=== PATIENT | female | born 1965 | race Caucasian/White ===

== ENCOUNTER 2017-05-13 11:05 | Emergency (ER) | payer OTHER ==
--- NOTE | 2017-05-13 11:33 | ERPHSYRPT ---
- History of Present Illness Time Seen by Provider: 05/13/17 11:26 Source: patient Exam Limitations: no limitations Physician History: The patient is an obese 52-year-old female complains of 2 red and tender areas on the skin of her abdomen that began a week ago. 5 days ago she saw her primary care doctor who prescribed Keflex. The infection on her skin hasn't gotten any better. She has had other skin infections of a similar nature in the past that had to be lanced and drained. She denies fever or chills. Her past medical history is significant for abscesses, hypertension, high cholesterol, diabetes, and peripheral neuropathy. Timing/Duration: week(s) (1) Quality: painful Severity: mild Location: torso Possible Causes: no cause identified Modifying Factors: Improves With: other (keflex) Associated Symptoms: rash Allergies/Adverse Reactions: adhesive tape Adverse Reaction (Intermediate, Verified 10/06/13 22:09) Home Medications: Gabapentin 300 mg [Neurontin 300 mg] 600 mg PO BID 08/25/12 [History] Insulin Glargine [Lantus Insulin] 40 units SQ BID 08/25/12 [History] Lisinopril 20 mg [Zestril 20 MG] 40 mg PO HS 08/25/12 [History] Simethicone [Gas-X] 2 tab PO BID 08/25/12 [History] Insulin Lispro [Humalog] 0 unit SQ ACHS PRN 02/24/13 [History] Cyanocobalamin (Vitamin B-12) [Vitamin B-12] 1,000 mcg PO DAILY 10/06/13 [ History] Furosemide [Lasix] 40 mg PO DAILY 10/06/13 [History] Oxycodone HCl/Acetaminophen [Percocet 7.5-325 mg Tablet] 1 each PO QID PRN 10/06 [History] Promethazine HCl 25 mg [Phenergan 25 mg] 25 mg PO Q6H PRN 10/06/13 [ History] Pyridoxine HCl 100 mg [Vitamin B-6 (Pyridoxine) 100 MG] 100 mcg PO BID 01/12 [History] Rivaroxaban 10 mg Tablet [Xarelto 10 mg Tablet] 20 mg PO DAILY 10/08/13 [ History] Hx Tetanus, Diphtheria Vaccination/Date Given: No (unsure) Hx Influenza Vaccination/Date Given: Yes (2013) Hx Pneumococcal Vaccination/Date Given: Yes (w/in 5 years) - Review of Systems Constitutional: No Fever, No Chills Eyes: No Symptoms Ears, Nose, & Throat: No Symptoms Respiratory: No Cough, No Dyspnea Cardiac: No Chest Pain, No Edema, No Syncope Abdominal/Gastrointestinal: No Abdominal Pain, No Nausea, No Vomiting, No Diarrhea Genitourinary Symptoms: No Dysuria Musculoskeletal: No Back Pain, No Neck Pain Skin: Rash, Skin Lesions Neurological: No Dizziness, No Focal Weakness, No Sensory Changes Psychological: No Symptoms Endocrine: No Symptoms Hematologic/Lymphatic: No Symptoms Immunological/Allergic: No Symptoms All Other Systems: Reviewed and Negative - Past Medical History Pertinent Past Medical History: Yes Neurological History: Other ENT History: No Pertinent History Cardiac History: Deep Vein Thrombosis Respiratory History: No Pertinent History Endocrine Medical History: Diabetes Type II Musculoskeletal History: Other GI Medical History: Pancreatitis, Other History: No Pertinent History Psycho-Social History: Depression Female Reproductive Disorders: No Pertinent History Other Medical History: slow digestive system, neuropathy - Past Surgical History Past Surgical History: Yes Neuro Surgical History: No Pertinent History Cardiac: No Pertinent History Respiratory: No Pertinent History Gastrointestinal: Other Genitourinary: No Pertinent History Musculoskeletal: No Pertinent History Female Surgical History: Tubal Ligation, Other Other Surgical History: d & c, (rectal surgery x3, cyst removed from rectum). cyst removed from pancreas - Social History Smoking Status: Never smoker Exposure to second hand smoke: No Drug Use: none Patient Lives Alone: No - Physical Exam General Appearance: no apparent distress, alert Eye Exam: PERRL/EOMI, eyes nml inspection Ears, Nose, Throat Exam: normal ENT inspection, pharynx normal, moist mucous membranes Neck Exam: normal inspection, non-tender, supple, full range of motion Respiratory Exam: normal breath sounds, lungs clear, No respiratory distress Cardiovascular Exam: regular rate/rhythm, normal heart sounds Gastrointestinal/Abdomen Exam: soft, mass, No tenderness Pelvic Exam: not done Rectal Exam: not done Back Exam: normal inspection, normal range of motion, No CVA tenderness, No vertebral tenderness Extremity Exam: normal inspection, normal range of motion Neurologic Exam: alert, oriented x 3, cooperative, normal mood/affect, sensation nml, No motor deficits Skin Exam: rash (There are 2 areas on the right side of her abdomen that are tender to palpation, reddish about the size of a quarter, and indurated. They are not fluctuant.) SpO2 Interpretation: normal - Progress Progress: unchanged Counseled pt/family regarding: diagnosis - Departure Time of Disposition: 11:38 Departure Disposition: Home Clinical Impression: Abscess, Cellulitis Condition: Stable Critical Care Time: No Referrals: FELIPE LOPEZ [Primary Care Provider] - Additional Instructions: The 2 areas on your skin of your abdomen are infected. Please discontinue the Keflex that you have been taking. Start taking clindamycin 300 mg 4 times a day for 10 days. Today the areas could not be drained. Follow-up with your primary care doctor in 2 days for a reevaluation. Prescriptions: Clindamycin HCl 1 cap PO QID #40 capsule
[2017-05-13 12:03] VITALS: BP 149/87; PULSE 88; O2SAT 97
== END 2017-05-13 12:00 | disposition home or self-care (01) ==
LOC: ED 11:05
DX: L02.211 Cutaneous abscess of abdominal wall (principal); L03.311 Cellulitis of abdominal wall; I10 Essential (primary) hypertension; E78.00 Pure hypercholesterolemia, unspecified; E11.9 Type 2 diabetes mellitus without complications; G62.9 Polyneuropathy, unspecified; Z79.899 Other long term (current) drug therapy
CPT/HCPCS: 99281; 99283

== ENCOUNTER 2017-07-31 06:04 | Inpatient (IN) | payer OTHER ==
[2017-07-31] MEDS ORDERED: Sodium Chloride 0.9% 1000 ML 1,000 ML ONE ×3 (06:15→07:36)
[2017-07-31] MEDS ORDERED: Sodium Chloride 0.9% 1000 ML 1,000 ML IV STA ×4 (06:28→09:07)
[2017-07-31] MEDS ORDERED: Zofran 4 MG/2 ML VIAL IV ONE (06:35)
--- NOTE | 2017-07-31 06:35 | ERPHSYRPT ---
- History of Present Illness Time Seen by Provider: 07/31/17 06:20 Source: patient Exam Limitations: no limitations Patient Subjective Stated Complaint: blood sugars have been running high for past 3 days, vomiting Triage Nursing Assessment: Pt A&O X3, extremely lethargic, bp 61/34, eyes sluggish, bilateral dorsalis pedal pulses weak, blood glucose 328 in ambulance, covered in vomit on arrival from EMS Physician History: 52 y/o female with history of DM brought in by ambulance for nausea, vomiting and altered mental status. Pt has been vomiting for the last 2 days. Pt arrived in vomitus and had a FS of 328. Repeat FS after a 1/4 of fluids was 262. Pt arrives very lethargic but is alert and oriented. Pt has a BP of 68/40. Pt has been having elevated blood sugars over the past 3 days. Pt has been compliant on her insulin. Of note, yesterday, patient noted to have right sided weakness that has resolved since then. Pt also reports that over the past month she has been using a new opioid SL medication given twice daily. Timing/Duration: yesterday Severity: moderate Associated Symptoms: nausea, vomiting Allergies/Adverse Reactions: adhesive tape Adverse Reaction (Intermediate, Verified 10/06/13 22:09) Home Medications: Lisinopril 20 mg [Zestril 20 MG] 40 mg PO HS 08/25/12 [History] Furosemide [Lasix] 40 mg PO DAILY 10/06/13 [History] Atorvastatin Calcium [Lipitor 20MG Tablet] 20 mg PO DAILY 06/11/17 [History] Gabapentin [Neurontin] 800 mg PO TID 06/11/17 [History] Insulin Glargine,Hum.rec.anlog [Basaglar Kwikpen U-100] 80 unit SQ DAILY [History] Insulin Glulisine [Apidra Solostar] 40 unit SQ BID 06/11/17 [History] Potassium Chloride 10 Meq Tab* [Klor Con 10 MEQ] 10 meq PO BID 06/11/17 [ History] Hx Tetanus, Diphtheria Vaccination/Date Given: No (unsure) Hx Influenza Vaccination/Date Given: Yes (2012) Hx Pneumococcal Vaccination/Date Given: Yes (w/in 5 years) - Review of Systems Constitutional: Lethargy, Weakness, No Fever, No Chills Eyes: No Symptoms Ears, Nose, & Throat: No Symptoms Respiratory: No Cough, No Dyspnea Cardiac: No Chest Pain, No Edema, No Syncope Abdominal/Gastrointestinal: No Abdominal Pain, No Nausea, No Vomiting, No Diarrhea Genitourinary Symptoms: No Dysuria, No Frequency, No Hematuria Musculoskeletal: No Back Pain, No Neck Pain, No Myalgias Skin: No Rash Neurological: No Dizziness, No Focal Weakness, No Sensory Changes Psychological: No Symptoms Endocrine: No Symptoms All Other Systems: Reviewed and Negative - Past Medical History Pertinent Past Medical History: Yes Neurological History: Other ENT History: No Pertinent History Cardiac History: Deep Vein Thrombosis Respiratory History: No Pertinent History Endocrine Medical History: Diabetes Type II Musculoskeletal History: Other GI Medical History: Pancreatitis, Other History: No Pertinent History Psycho-Social History: Depression Female Reproductive Disorders: No Pertinent History Other Medical History: slow digestive system, neuropathy - Past Surgical History Past Surgical History: Yes Neuro Surgical History: No Pertinent History Cardiac: No Pertinent History Respiratory: No Pertinent History Gastrointestinal: Other Genitourinary: No Pertinent History Musculoskeletal: No Pertinent History Female Surgical History: Tubal Ligation, Other Other Surgical History: d & c, (rectal surgery x3, cyst removed from rectum). cyst removed from pancreas - Social History Smoking Status: Never smoker Exposure to second hand smoke: No Drug Use: none Patient Lives Alone: No - Nursing Vital Signs Nursing Vital Signs: Initial Vital Signs Temperature 97.8 F 07/31/17 06:09 Pulse Rate 78 07/31/17 06:09 Respiratory Rate 13 07/31/17 06:09 Blood Pressure 61/34 07/31/17 06:09 - Physical Exam General Appearance: alert, lethargy, obese Eye Exam: PERRL/EOMI, eyes nml inspection Ears, Nose, Throat Exam: normal ENT inspection, TMs normal, pharynx normal, moist mucous membranes Neck Exam: normal inspection, non-tender, supple, full range of motion Respiratory Exam: normal breath sounds, lungs clear, No chest tenderness, No respiratory distress Cardiovascular Exam: regular rate/rhythm, normal heart sounds, normal peripheral pulses Gastrointestinal/Abdomen Exam: soft, normal bowel sounds, No tenderness, No mass Back Exam: normal inspection, normal range of motion, No CVA tenderness, No vertebral tenderness Extremity Exam: normal inspection, normal range of motion, pelvis stable Neurologic Exam: alert, oriented x 3, cooperative, normal mood/affect, nml cerebellar function, nml station & gait, sensation nml, No motor deficits Skin Exam: normal color, warm, dry, No rash Lymphatic Exam: No adenopathy - Course Nursing assessment & vital signs reviewed: Yes EKG Interpreted by Me: RATE (HR 85), Other (low voltage) Ordered Tests: Active Orders 24 hr Category Date Time Status Distance Education Teacher STAT Care 07/31/17 06:27 Active IV Insertion STAT Care 07/31/17 06:26 Active CHEST 1 VIEW (PORTABLE) Stat Exams 07/31/17 06:27 Taken HEAD WITHOUT CONTRAST [CT] Stat Exams 07/31/17 06:29 Taken BLOOD CULTURE Stat Lab 07/31/17 06:36 Ordered BNP [NT PRO BNP] Stat Lab 07/31/17 06:49 Completed CBC W DIFF Stat Lab 07/31/17 06:36 Completed CMP Stat Lab 07/31/17 06:36 Completed CULTURE,URINE Stat Lab 07/31/17 06:36 Received ETHYL ALCOHOL Stat Lab 07/31/17 06:36 Completed Lactic Acid Stat Lab 07/31/17 06:27 Results PROTIME WITH INR Stat Lab 07/31/17 06:36 Completed PTT Stat Lab 07/31/17 06:36 Completed UA Stat Lab 07/31/17 06:36 Completed Urine Triage Profile Stat Lab 07/31/17 06:36 Completed VENOUS BLOOD GAS Stat Lab 07/31/17 06:26 Completed Medication Summary Generic Name Dose Route Start Last Admin Trade Name Freq PRN Reason Stop Dose Admin Vancomycin HCl 1 gm in 250 mls @ 167 mls/hr 07/31/17 06:38 Vancomycin 1gm/ Ns 250ml IV 07/31/17 08:07 STAT ONE Potassium Chloride 20 meq in 100 mls @ 50 mls/hr 07/31/17 07:12 07/31/17 07: 37 Potassium Chloride 20 Meq In Water 100ml IV 07/31/17 09:11 50 mls/hr STAT ONE Administration Sodium Chloride 1,000 mls @ 999 mls/hr 07/31/17 07:35 07/31/17 07:38 Sodium Chloride 0.9% 1000 Ml IV 07/31/17 08:35 999 mls/hr .Q1H1M STA Administration Discontinued Medications Generic Name Dose Route Start Last Admin Trade Name Freq PRN Reason Stop Dose Admin Sodium Chloride Confirm 07/31/17 06:15 Sodium Chloride 0.9% 1000 Ml Administered 07/31/17 06:16 Dose 1,000 mls @ ud .ROUTE .STK-MED ONE Sodium Chloride 1,000 mls @ 999 mls/hr 07/31/17 06:28 07/31/17 06:15 Sodium Chloride 0.9% 1000 Ml IV 07/31/17 07:28 999 mls/hr .Q1H1M STA Administration Sodium Chloride 1,000 mls @ 999 mls/hr 07/31/17 06:35 07/31/17 06:50 Sodium Chloride 0.9% 1000 Ml IV 07/31/17 07:35 999 mls/hr .Q1H1M STA Administration Piperacillin Sod/Tazobactam Sod 3.375 gm in 100 mls @ 200 mls/hr 07/31/17 06: 38 07/31/17 07:29 Zosyn 3.375gm/100 Ml D5w IV 07/31/17 07:07 200 mls/hr STAT STA Administration Sodium Chloride Confirm 07/31/17 06:38 Sodium Chloride 0.9% 1000 Ml Administered 07/31/17 06:39 Dose 1,000 mls @ ud .ROUTE .STK-MED ONE Sodium Chloride Confirm 07/31/17 06:49 Sodium Chloride 0.9% 1000 Ml Administered 07/31/17 06:50 Dose 1,000 mls @ ud .ROUTE .STK-MED ONE Piperacillin Sod/Tazobactam Sod Confirm 07/31/17 06:49 Zosyn 3.375gm/100 Ml D5w Administered 07/31/17 06:50 Dose 3.375 gm in 100 mls @ ud IV .STK-MED ONE Sodium Chloride Confirm 07/31/17 07:36 Sodium Chloride 0.9% 1000 Ml Administered 07/31/17 07:37 Dose 1,000 mls @ ud .ROUTE .STK-MED ONE Potassium Chloride Confirm 07/31/17 07:36 Potassium Chloride 20 Meq In Water 100ml Administered 07/31/17 07:37 Dose 100 mls @ ud IV .STK-MED ONE Naloxone HCl 2 mg 07/31/17 06:41 07/31/17 06:43 Narcan 2 Mg/2 Ml IV 07/31/17 06:42 2 mg STAT ONE Administration Naloxone HCl Confirm 07/31/17 06:43 Narcan 2 Mg/2 Ml Administered 07/31/17 06:44 Dose 2 mg .ROUTE .STK-MED ONE Ondansetron HCl 4 mg 07/31/17 06:35 07/31/17 06:40 Zofran 4 Mg/2 Ml Vial IV 07/31/17 06:36 4 mg STAT ONE Administration Ondansetron HCl Confirm 07/31/17 06:38 Zofran 4 Mg/2 Ml Vial Administered 07/31/17 06:39 Dose 4 mg .ROUTE .[facility] ONE Lab/Rad Data: Laboratory Result Diagrams 07/31/17 06:36 07/31/17 06:36 Laboratory Results 07/31/17 07/31/17 07/31/17 Range/Units 06:49 06:36 06:36 WBC (4.0-10.5) K/mm3 RBC (4.1-5.4) M/mm3 Hgb (12.0-16.0) gm/dl Hct (35-47) % MCV (78-100) fl MCH (26-32) pg MCHC (32-36) g/dl RDW (11.5-14.0) % Plt Count (150-450) K/mm3 MPV (6-9.5) fl Gran % (36.0-66.0) % Lymphocytes % (24.0-44.0) % Monocytes % (0.0-12.0) % Eosinophils % (0.00-5.0) % Basophils % (0.0-0.4) % Basophils # (0-0.4) INR (0.8-3.0) APTT (25.3-37.0) SECONDS VBG pH (7.32-7.42) VBG pCO2 at Pat Temp (42-55) mm/Hg VBG pO2 at Pat Temp (25-40) mm/Hg VBG HCO3 (22-28) meq/L VBG O2 Sat (Gabriel) (95-100) VBG Base Excess (-2.0-2.0) VBG Hemoglobin VBG Carboxyhemoglobin (0.0-6.9) % T HGB POC Potassium (3.5-5.1) Sodium (136-145) mEq/L Potassium (3.5-5.1) mEq/L Chloride (98-107) mEq/L Carbon Dioxide (21-32) mEq/L Anion Gap (5-15) MEQ/L BUN (9-20) mg/dL Creatinine (0.55-1.30) mg/dl Estimated GFR ML/MIN Glucose (70-110) MG/DL Lactic Acid (0.4-2.0) Calcium (8.5-10.1) mg/dL Total Bilirubin (0.2-1.0) mg/dL AST (15-37) U/L ALT (12-78) U/L Alkaline Phosphatase (46-116) U/L NT-Pro-B Natriuret Pep 77 (0-125) pg/ml Serum Total Protein (6.4-8.2) gm/dL Albumin (3.4-5.0) g/dL Ur Collection Type CLEAN CATCH Urine Color YELLOW (YELLOW) Urine Appearance HAZY (CLEAR) Urine pH 5.0 (5-6) Ur Specific [place] 1.005 (1.005-1.025) Urine Protein NEGATIVE (Negative) Urine Ketones NEGATIVE (NEGATIVE) Urine Blood NEGATIVE (0-5) Harvey/ul Urine Nitrite NEGATIVE (NEGATIVE) Urine Bilirubin NEGATIVE (NEGATIVE) Urine Urobilinogen NORMAL (0-1) mg/dL Ur Leukocyte Esterase NEGATIVE (NEGATIVE) Urine Glucose 1000 (NEGATIVE) mg/dL Urine Opiates Level NEG. (NEGATIVE) Ur Methadone NEG. (NEGATIVE) Urine Barbiturates NEG. (NEGATIVE) Ur Phencyclidine (PCP) NEG. (NEGATIVE) Urine Amphetamine NEG. (NEGATIVE) U Benzodiazepine Level NEG. (NEGATIVE) Urine Cocaine NEG. (NEGATIVE) Urine Marijuana (THC) NEG. (NEGATIVE) Ethyl Alcohol (0.00-0.01) % Specimen Received 07/31/17 0645 07/31/17 07/31/17 07/31/17 Range/Units 06:36 06:36 06:36 WBC (4.0-10.5) K/mm3 RBC (4.1-5.4) M/mm3 Hgb (12.0-16.0) gm/dl Hct (35-47) % MCV (78-100) fl MCH (26-32) pg MCHC (32-36) g/dl RDW (11.5-14.0) % Plt Count (150-450) K/mm3 MPV (6-9.5) fl Gran % (36.0-66.0) % Lymphocytes % (24.0-44.0) % Monocytes % (0.0-12.0) % Eosinophils % (0.00-5.0) % Basophils % (0.0-0.4) % Basophils # (0-0.4) INR 1.14 (0.8-3.0) APTT 28.4 (25.3-37.0) SECONDS VBG pH (7.32-7.42) VBG pCO2 at Pat Temp (42-55) mm/Hg VBG pO2 at Pat Temp (25-40) mm/Hg VBG HCO3 (22-28) meq/L VBG O2 Sat (Gabriel) (95-100) VBG Base Excess (-2.0-2.0) VBG Hemoglobin VBG Carboxyhemoglobin (0.0-6.9) % T HGB POC Potassium (3.5-5.1) Sodium 139 (136-145) mEq/L Potassium 2.8 L* (3.5-5.1) mEq/L Chloride 96 L (98-107) mEq/L Carbon Dioxide 30.5 (21-32) mEq/L Anion Gap 14.9 (5-15) MEQ/L BUN 30 H (9-20) mg/dL Creatinine 2.38 H (0.55-1.30) mg/dl Estimated GFR 23 ML/MIN Glucose 250 H (70-110) MG/DL Lactic Acid (0.4-2.0) Calcium 9.6 (8.5-10.1) mg/dL Total Bilirubin 0.50 (0.2-1.0) mg/dL AST 30 (15-37) U/L ALT 26 (12-78) U/L Alkaline Phosphatase 114 (46-116) U/L NT-Pro-B Natriuret Pep (0-125) pg/ml Serum Total Protein 8.0 (6.4-8.2) gm/dL Albumin 3.3 L (3.4-5.0) g/dL Ur Collection Type Urine Color (YELLOW) Urine Appearance (CLEAR) Urine pH (5-6) Ur Specific [place] (1.005-1.025) Urine Protein (Negative) Urine Ketones (NEGATIVE) Urine Blood (0-5) Harvey/ul Urine Nitrite (NEGATIVE) Urine Bilirubin (NEGATIVE) Urine Urobilinogen (0-1) mg/dL Ur Leukocyte Esterase (NEGATIVE) Urine Glucose (NEGATIVE) mg/dL Urine Opiates Level (NEGATIVE) Ur Methadone (NEGATIVE) Urine Barbiturates (NEGATIVE) Ur Phencyclidine (PCP) (NEGATIVE) Urine Amphetamine (NEGATIVE) U Benzodiazepine Level (NEGATIVE) Urine Cocaine (NEGATIVE) Urine Marijuana (THC) (NEGATIVE) Ethyl Alcohol < 0.010 (0.00-0.01) % Specimen Received 07/31/17 07/31/17 07/31/17 Range/Units 06:36 06:27 06:26 WBC 10.3 (4.0-10.5) K/mm3 RBC 5.24 (4.1-5.4) M/mm3 Hgb 15.0 (12.0-16.0) gm/dl Hct 45.0 (35-47) % MCV 85.9 (78-100) fl MCH 28.6 (26-32) pg MCHC 33.3 (32-36) g/dl RDW 14.8 H (11.5-14.0) % Plt Count 176 (150-450) K/mm3 MPV 12.3 H (6-9.5) fl Gran % 43.7 (36.0-66.0) % Lymphocytes % 39.5 (24.0-44.0) % Monocytes % 13.7 H (0.0-12.0) % Eosinophils % 2.3 (0.00-5.0) % Basophils % 0.8 (0.0-0.4) % Basophils # 0.08 (0-0.4) INR (0.8-3.0) APTT (25.3-37.0) SECONDS VBG pH 7.34 (7.32-7.42) VBG pCO2 at Pat Temp 60 H (42-55) mm/Hg VBG pO2 at Pat Temp 23 L (25-40) mm/Hg VBG HCO3 32.4 H* (22-28) meq/L VBG O2 Sat (Gabriel) 41.6 L (95-100) VBG Base Excess 4.5 H (-2.0-2.0) VBG Hemoglobin 15.6 VBG Carboxyhemoglobin 1.6 (0.0-6.9) % T HGB POC Potassium 3.1 L (3.5-5.1) Sodium (136-145) mEq/L Potassium (3.5-5.1) mEq/L Chloride (98-107) mEq/L Carbon Dioxide (21-32) mEq/L Anion Gap (5-15) MEQ/L BUN (9-20) mg/dL Creatinine (0.55-1.30) mg/dl Estimated GFR ML/MIN Glucose (70-110) MG/DL Lactic Acid 4.3 H (0.4-2.0) Calcium (8.5-10.1) mg/dL Total Bilirubin (0.2-1.0) mg/dL AST (15-37) U/L ALT (12-78) U/L Alkaline Phosphatase (46-116) U/L NT-Pro-B Natriuret Pep (0-125) pg/ml Serum Total Protein (6.4-8.2) gm/dL Albumin (3.4-5.0) g/dL Ur Collection Type Urine Color (YELLOW) Urine Appearance (CLEAR) Urine pH (5-6) Ur Specific [place] (1.005-1.025) Urine Protein (Negative) Urine Ketones (NEGATIVE) Urine Blood (0-5) Harvey/ul Urine Nitrite (NEGATIVE) Urine Bilirubin (NEGATIVE) Urine Urobilinogen (0-1) mg/dL Ur Leukocyte Esterase (NEGATIVE) Urine Glucose (NEGATIVE) mg/dL Urine Opiates Level (NEGATIVE) Ur Methadone (NEGATIVE) Urine Barbiturates (NEGATIVE) Ur Phencyclidine (PCP) (NEGATIVE) Urine Amphetamine (NEGATIVE) U Benzodiazepine Level (NEGATIVE) Urine Cocaine (NEGATIVE) Urine Marijuana (THC) (NEGATIVE) Ethyl Alcohol (0.00-0.01) % Specimen Received - Progress Progress: unchanged Progress Note: 07/31/17 07:46 The patient has continued to have low BP with the last reading being 77/40 after receiving 2 liters of NS fluids. Pt is currently on her 3rd liter. Pt has a K of 2.6, lactic acid of over 4 and a creatinine of 2.36. Pt was also started on zosyn and vancomycin for possible sepsis. Pt was started on k-rider. Pt has no white count, negative CXR and unremarkable UA. Pt was given narcan 2mg with no response. The CT head is unremarkable. If after the 3rd liter, there is no improvement, then patient will require levophed. Pt has been admitted to Dr Henning for hypotension, acute kidney injury and hypokalemia. - Departure Time of Disposition: 07:52 Departure Disposition: In-patient Admission Clinical Impression: Hypokalemia ARF (acute renal failure) Qualifiers: Acute renal failure type: unspecified Qualified Code(s): N17.9 - Acute kidney failure, unspecified Hypotension Qualifiers: Hypotension type: unspecified hypotension type Qualified Code(s): I95.9 - Hypotension, unspecified Condition: Serious Critical Care Time: Yes Critical Care Time(excluding separately billable procedures): 75-104 minutes Referrals: FELIPE HENNING [Primary Care Provider] -
[2017-07-31] MEDS ORDERED: Vancomycin 1GM/ Ns 250ML*** 1 GM/250 ML IVPB IV ONE (06:38)
[2017-07-31] MEDS ORDERED: Zofran 4 MG/2 ML VIAL ONE (06:38)
[2017-07-31] MEDS ORDERED: Sodium Chloride 0.9% 1000 ML 0 ML ONE (06:38)
[2017-07-31] MEDS ORDERED: NARCAN 2 MG/2 ML IV ONE (06:41)
[2017-07-31 06:43] LABS: Lactic Acid 4.3 (0.4-2.0)
[2017-07-31] MEDS ORDERED: NARCAN 2 MG/2 ML ONE (06:43)
[2017-07-31 06:45] LABS: VBG BASE EXCESS 4.5 (-2.0-2.0); VBG CARBOXYHEMOGLOBIN 1.6 % T HGB (0.0-6.9); VBG HCO3- 32.4 meq/L (22-28); VBG HEMOGLOBIN 15.6; VBG O2 SATURATION 41.6 (95-100); VBG POTASSIUM 3.1 (3.5-5.1); VBG pH 7.34 (7.32-7.42)
[2017-07-31] MEDS ORDERED: Zosyn 3.375GM/100 Ml D5W 3.375 GM/100 ML IVPB IV ONE (06:49)
[2017-07-31 06:50] LABS: BASOPHIL % 0.8 % (0.0-0.4); Basophil (Absolute #) 0.08 (0-0.4); Eosinophil % 2.3 % (0.00-5.0); Eosinophil (Absolute #) 0.24 (0-0.5); Granulocyte Absolute (ANC) 4.49 (1.4-6.9); Granulocytes % 43.7 % (36.0-66.0); Lymphocyte (Absolute #) 4.06 (1.0-4.6); Lymphocytes % 39.5 % (24.0-44.0); Mean Cell Volume 85.9 fl (78-100); Mean Corpuscular Hemoglobin 28.6 pg (26-32); Mean Corpuscular Hgb Concent. 33.3 g/dl (32-36); Mean Platelet Volume 12.3 fl (6-9.5); Monocyte (Absolute #) 1.41 (0.0-1.3); Monocytes % 13.7 % (0.0-12.0); Platelet Count 176 K/mm3 (150-450); Red Blood Count 5.24 M/mm3 (4.1-5.4); Red Cell Distribution Width 14.8 % (11.5-14.0); White Blood Count 10.3 K/mm3 (4.0-10.5)
[2017-07-31] MEDS: Zosyn 3.375GM/100 Ml D5W 3.375 GM/100 ML IVPB IV STA ×2 (06:50→07:29)
[2017-07-31 06:55] LABS: INR 1.14 (0.8-3.0)
[2017-07-31 06:57] LABS: Amphetamine,Urine NEG. (NEGATIVE); Barbiturate,Urine NEG. (NEGATIVE); Benzodiazepine,Urine NEG. (NEGATIVE); Cocaine,Urine NEG. (NEGATIVE); Methadone,Urine NEG. (NEGATIVE); Opiate,Urine NEG. (NEGATIVE); PCP,Urine NEG. (NEGATIVE); PTT 28.4 SECONDS (25.3-37.0); THC,Urine NEG. (NEGATIVE)
[2017-07-31 07:01] LABS: Appearance HAZY (CLEAR); Bilirubin NEGATIVE (NEGATIVE); Blood NEGATIVE Ery/ul (0-5); Glucose 1000 mg/dL (NEGATIVE); Ketones NEGATIVE (NEGATIVE); Leukocyte Esterase NEGATIVE (NEGATIVE); Nitrite NEGATIVE (NEGATIVE); Protein,Urine Dip NEGATIVE (Negative); Specific Gravity 1.005 (1.005-1.025); Urobilinogen NORMAL mg/dL (0-1)
[2017-07-31 07:05] LABS: ALBUMIN 3.3 g/dL (3.4-5.0); ANION GAP 14.9 MEQ/L (5-15); BILIRUBIN,TOTAL 0.5 mg/dL (0.2-1.0); Calcium 9.6 mg/dL (8.5-10.1); Carbon Dioxide 30.5 mEq/L (21-32); Creatinine 1 2.38 mg/dl (0.55-1.30)
[2017-07-31 07:08] LABS: Potassium 2.8 mEq/L (3.5-5.1)
[2017-07-31] MEDS ORDERED: POTASSIUM CHLORIDE 20 mEq IN WATER 100ML 20 MEQ/100 ML BAG IV ONE (07:12)
[2017-07-31] MEDS ORDERED: POTASSIUM CHLORIDE 20 mEq IN WATER 100ML 100 ML IV ONE (07:36)
[2017-07-31] MEDS ORDERED: Zofran 4 MG/2 ML VIAL IV PRN (07:53)
[2017-07-31] MEDS ORDERED: Sodium Chloride 0.9% 1000 ML 1,000 ML IV SCH (08:00)
[2017-07-31] MEDS ORDERED: Vancomycin 1GM/ Ns 250ML*** 250 ML IV ONE (08:09)
[2017-07-31 08:18] LABS: INFLUENZA A NEGATIVE (NEGATIVE); INFLUENZA B NEGATIVE (NEGATIVE); RESPIRATORY SYNCTIAL VIRUS NEGATIVE (Negative)
[2017-07-31] MEDS ORDERED: LEVOPHED 4 MG/4 ML 4,000 MCG in Dextrose 5%/Water IV Soln. 500 ML 500 ML IV PRN (08:39)
[2017-07-31] MEDS ORDERED: PHARMACY DOSING REQUEST MC ONE (10:25)
[2017-07-31] MEDS ORDERED: SUBLIMAZE 100 MCG/2 ML IV PRN (10:27)
[2017-07-31] MEDS: ENOXAPARIN SODIUM SQ SCH (11:26)
[2017-07-31] MEDS: Protonix 40MG Tablet PO SCH (11:26)
[2017-07-31] MEDS: NovoLOG Insulin SQ PRN (12:22)
[2017-07-31] MEDS: Sodium Chloride 0.9% 1000 ML 1,000 ML IV SCH ×2 (14:17→21:02)
--- NOTE | 2017-07-31 15:34 | XRAY ---
Exam: CT of the head without IV contrast from 07/31/2017. CTDI: 57.34 Comparison: None. Indication: Altered mental status, possible sepsis, dizziness. Technique: Non-IV contrast axial images were obtained through the abdomen and pelvis. Reconstructed coronal and sagittal images were created and reviewed. Findings: Some beam hardening artifact is seen through the lower cuts through the brain. Atherosclerotic vascular calcification is seen within the distal vertebral arteries. I also see dense vascular calcification within the distal internal carotid arteries. The ventricles appear of normal size. No focal mass effect or midline shift is seen. No acute intracranial bleed or abnormal extra-axial fluid collection is seen. No acute territorial infarction is seen. No significant white matter disease is seen. The calvarium of the skull reveals no fracture or other focal bone lesion. The visualized paranasal sinuses and mastoid air cells are clear. The orbits appear grossly unremarkable. Impression: 1. No acute intracranial bleed or other acute intracranial process is seen. 2. Beam hardening artifact mildly limits evaluation on a number of axial images through the lower brain.
--- NOTE | 2017-07-31 15:38 | XRAY ---
Exam: AP upright portable chest film from 07/31/2017. Comparison: AP portable chest film from 10/07/2013. Indication: Possible sepsis. Findings: The patient is noted to be very large. A portion of the patient's abdomen overlies the lung bases. The transverse heart size appears at the upper limits of normal. No vascular congestion or pleural effusions are seen. No air space infiltrates or pneumothorax is seen. Multiple leads overlie the chest. No acute osseous process is seen. Impression: 1. No acute cardiopulmonary disease is seen. The findings are similar to 10/07/2013.
[2017-07-31] MEDS: MORPHINE SULFATE 10 MG/ML IV PRN ×2 (18:39→22:49)
[2017-07-31] MEDS: ZOCOR 20MG PO SCH (21:05)
[2017-07-31] MEDS ORDERED: INSULIN GLARGINE HUM REC ANLOG 80 UNIT SQ SCH (22:00)
[2017-07-31] MEDS ORDERED: NON-FORMULARY ITEM (Atorvastatin Calcium 20 MG) PO SCH (22:00)
[2017-07-31] MEDS: Lantus Insulin SQ SCH (22:24)
[2017-07-31] MEDS: Sodium Chloride 0.9% 10 ML FLUSH Syringe IV SCH (22:57)
[2017-08-01] MEDS: Sodium Chloride 0.9% 1000 ML 1,000 ML IV SCH ×2 (03:34→10:16)
[2017-08-01 06:45] LABS: BASOPHIL % 0.5 % (0.0-0.4); Basophil (Absolute #) 0.03 (0-0.4); Eosinophil % 3.7 % (0.00-5.0); Eosinophil (Absolute #) 0.22 (0-0.5); Granulocyte Absolute (ANC) 2.76 (1.4-6.9); Granulocytes % 46.8 % (36.0-66.0); Hematocrit 40.4 % (35-47); Hemoglobin 13.1 gm/dl (12.0-16.0); Lymphocyte (Absolute #) 2.29 (1.0-4.6); Lymphocytes % 38.7 % (24.0-44.0); Mean Cell Volume 87.8 fl (78-100); Mean Corpuscular Hemoglobin 28.5 pg (26-32); Mean Corpuscular Hgb Concent. 32.4 g/dl (32-36); Mean Platelet Volume 11.7 fl (6-9.5); Monocyte (Absolute #) 0.61 (0.0-1.3); Monocytes % 10.3 % (0.0-12.0); Platelet Count 119 K/mm3 (150-450); Red Cell Distribution Width 14.9 % (11.5-14.0); White Blood Count 5.9 K/mm3 (4.0-10.5)
[2017-08-01 07:41] LABS: ANION GAP 12.8 MEQ/L (5-15); Carbon Dioxide 24.4 mEq/L (21-32); Creatinine 1 1.03 mg/dl (0.55-1.30); Potassium 3.3 mEq/L (3.5-5.1)
--- NOTE | 2017-08-01 09:43 | PCM.HP ---
History of Present Illness - Chief Complaint Chief Complaint: hypotension; acute kidney injury; hypokalemia History of Present Illness: is a 52 year old female of mine from [facility] who was disoriented and lethargic on admission and covered with vomitus. Narcan was given x2 with no effect. she was hypotensive and was given several liters of fluid before her blood pressure improved. She did not need pressors. She does claim to remember getting up in the night and vomiting several times, knows she was disoriented. She has still been somewhat sleepy. She claims this has happened before to her - the vomiting in the night followed by some disorientation and lethargy. No known etiology to those episodes. She sees pain management and was started on a new buccal pain medicine sometime in the past 1-2 weeks (from Dr. Charles). She says earlier this week instead of just leaving the patch in place in her mouth for 30 min, she accidentally swallowed it. She called the pain management clinic and they told her it should not have any deleterious effect. On admission she was given vancomycin and zosyn for presumed sepsis. Her WBC count was normal; continues to be normal this morning. She is not complaining of anything aside from her usual back pain. She has tolerated CLD. I did see the patient last night but did not write a note. - Review of Systems Abdominal/Gastrointestinal: Vomiting Musculoskeletal: Arthralgias, Back Pain Neurological: Lethargy, Other (disorientation) Psychological: Anxiety, Depression, No Suicidal Ideations All Other Systems: Reviewed and Negative Medications & Allergies Home Medications: Home Medication List Lisinopril 20 mg [Zestril 20 MG] 40 mg PO DAILY 08/25/12 [History Confirmed 07/31/17] Furosemide [Lasix] 40 mg PO DAILY PRN PRN 10/06/13 [History Confirmed 07/31/17] Atorvastatin Calcium [Lipitor 20MG Tablet] 20 mg PO HS 06/11/17 [History Confirmed 07/31/17] Gabapentin [Neurontin] 800 mg PO TID 06/11/17 [History Confirmed 07/31/17] Insulin Glargine,Hum.rec.anlog [Basaglar Kwikpen U-100] 80 unit SQ HS 06/11/17 [ History Confirmed 07/31/17] Insulin Glulisine [Apidra Solostar] 40 unit SQ BID 06/11/17 [History Confirmed 07/31/17] Potassium Chloride 10 Meq Tab* [Klor Con 10 MEQ] 10 meq PO DAILY PRN PRN 04/18 [History Confirmed 07/31/17] Buprenorphine HCl [Belbuca] 150 mcg BC Q12H 07/31/17 [History Confirmed 07/31/17 ] Omeprazole 20 MG [Prilosec 20 mg] 20 mg PO DAILY 07/31/17 [History Confirmed 07/19] Tizanidine HCl 4 mg [Zanaflex 4 MG] 4 mg PO HS 07/31/17 [History Confirmed 07/31/17] Allergies/Adverse Reactions: Allergies Allergy/AdvReac Type Severity Reaction Status Date / Time adhesive tape AdvReac Intermediate Verified 10/06/13 22:09 - Past Medical History Past Medical History: Yes Neurological History: Peripheral Neuropathy, Other ENT History: No Pertinent History Cardiac History: Congestive Heart Failure, Deep Vein Thrombosis Respiratory History: CHF, Sleep Apnea Endocrine Medical History: Diabetes Type II Musculoskelatal History: Other GI Medical History: Pancreatitis, Other History: No Pertinent History Pyscho-Social History: Depression Reproductive Disorders: No Pertinent History Comment: slow digestive system, neuropathy - Past Surgical History Past Surgical History: Yes Neuro Surgical History: No Pertinent History Cardiac History: No Pertinent History Respiratory Surgery: No Pertinent History GI Surgical History: Other Genitourinary Surgical Hx: No Pertinent History Musculskeletal Surgical Hx: No Pertinent History Female Surgical History: Tubal Ligation, Other Other Surgical History: d & c, (rectal surgery x3, cyst removed from rectum). cyst removed from pancreas - Social History Smoking Status: Never smoker Exposure to second hand smoke: No Alcohol: None Drug Use: narcotics - Physical Exam Vital Signs: Vital Signs - 24 hr Temp Pulse Resp BP Pulse Ox 08/01/17 08:00 98.6 F 84 12 138/77 98 08/01/17 04:00 98.2 F 77 12 94/50 97 08/01/17 00:01 78 08/01/17 00:00 98.4 F 78 12 141/69 98 07/31/17 20:00 98.6 F 80 15 144/61 99 07/31/17 16:00 98.3 F 78 12 131/74 100 03/02/18 12:00 98.4 F 79 13 125/60 99 07/31/17 10:35 98.3 F 82 16 92/47 99 General Appearance: no apparent distress, obese Neurologic Exam: oriented x 3, cooperative Eye Exam: eyes nml inspection Ears, Nose, Throat Exam: moist mucous membranes Neck Exam: normal inspection, non-tender, No lymphadenopathy Respiratory Exam: normal breath sounds, lungs clear, wheezing (faint in RLL), No crackles/rales, No rhonchi Cardiovascular Exam: regular rate/rhythm, normal heart sounds, No murmur Gastrointestinal/Abdomen Exam: soft, normal bowel sounds, No tenderness, No distention, No mass, No guarding, No rebound Back Exam: normal inspection, No rash Extremity Exam: No pedal edema, No swelling Skin Exam: normal color, warm, dry, No rash Results - Labs Lab/Micro Results: Accuchecks Date 08/01/17 Date 08/01/17 Date 08/01/17 Date 07/31/17 Time 08:00 Time 04:00 Time 00:00 Time 20:00 Accucheck Value: 166 Accucheck Value: 125 Accucheck Value: 139 Accucheck Value: 101 Accucheck Value: 143 Accucheck Value: 225 Lab Results-Last 24 Hours 07/31/17 07/31/17 08/01/17 Range/Units 11:28 18:30 04:00 WBC (4.0-10.5) K/mm3 RBC (4.1-5.4) M/mm3 Hgb (12.0-16.0) gm/dl Hct (35-47) % MCV (78-100) fl MCH (26-32) pg MCHC (32-36) g/dl RDW (11.5-14.0) % Plt Count (150-450) K/mm3 MPV (6-9.5) fl Gran % (36.0-66.0) % Lymphocytes % (24.0-44.0) % Monocytes % (0.0-12.0) % Eosinophils % (0.00-5.0) % Basophils % (0.0-0.4) % Basophils # (0-0.4) Sodium (136-145) mEq/L Potassium 3.8 (3.5-5.1) mEq/L Chloride (98-107) mEq/L Carbon Dioxide (21-32) mEq/L Anion Gap (5-15) MEQ/L BUN (9-20) mg/dL Creatinine (0.55-1.30) mg/dl Estimated GFR ML/MIN Glucose (70-110) MG/DL Lactic Acid 1.0 (0.4-2.0) Calcium (8.5-10.1) mg/dL Troponin I < 0.017 (0.000-0.056) ng/ml 08/01/17 08/01/17 Range/Units 06:31 06:31 WBC 5.9 (4.0-10.5) K/mm3 RBC 4.60 (4.1-5.4) M/mm3 Hgb 13.1 (12.0-16.0) gm/dl Hct 40.4 (35-47) % MCV 87.8 (78-100) fl MCH 28.5 (26-32) pg MCHC 32.4 (32-36) g/dl RDW 14.9 H (11.5-14.0) % Plt Count 119 L (150-450) K/mm3 MPV 11.7 H (6-9.5) fl Gran % 46.8 (36.0-66.0) % Lymphocytes % 38.7 (24.0-44.0) % Monocytes % 10.3 (0.0-12.0) % Eosinophils % 3.7 (0.00-5.0) % Basophils % 0.5 (0.0-0.4) % Basophils # 0.03 (0-0.4) Sodium 142 (136-145) mEq/L Potassium 3.3 L (3.5-5.1) mEq/L Chloride 108 H (98-107) mEq/L Carbon Dioxide 24.4 (21-32) mEq/L Anion Gap 12.8 (5-15) MEQ/L BUN 18 (9-20) mg/dL Creatinine 1.03 (0.55-1.30) mg/dl Estimated GFR 59 ML/MIN Glucose 156 H (70-110) MG/DL Lactic Acid (0.4-2.0) Calcium 8.0 L (8.5-10.1) mg/dL Troponin I (0.000-0.056) ng/ml Accuchecks Date 08/01/17 Date 08/01/17 Date 08/01/17 Date 07/31/17 Time 08:00 Time 04:00 Time 00:00 Time 20:00 Accucheck Value: 166 Accucheck Value: 125 Accucheck Value: 139 Accucheck Value: 101 Accucheck Value: 143 Accucheck Value: 225 - Other Procedures and Tests Respiratory Therapy 07/31/17 22:00 BiPap/CPAP Assessment ROUTINE Assessment/Plan (1) Lethargy Current Visit: Yes Status: Acute Assessment & Plan: Improved. I'm not sure the etiology but do not think she was septic, just hypovolemic. Her WBC count remains normal and she has no symptoms aside from feeling a bit sleepy still; feeling much better with just IV fluids. I am not continuing the antibiotics. Code(s): R53.83 - OTHER FATIGUE (2) Vomiting Current Visit: Yes Status: Resolved Qualifiers: Vomiting type: unspecified Vomiting Intractability: non-intractable Nausea presence: unspecified Qualified Code(s): R11.10 - Vomiting, unspecified Assessment & Plan: Will send her to GI for recurrent vomiting episodes, after discharge. Code(s): R11.10 - VOMITING, UNSPECIFIED (3) ARF (acute renal failure) Current Visit: Yes Status: Acute Qualifiers: Acute renal failure type: unspecified Qualified Code(s): N17.9 - Acute kidney failure, unspecified Assessment & Plan: Renal function improved this morning, Cr from 2.38 on admission to 1.03 today. (4) Hypotension Current Visit: Yes Status: Acute Qualifiers: Hypotension type: unspecified hypotension type Qualified Code(s): I95.9 - Hypotension, unspecified Assessment & Plan: lowest blood pressure 94/50 at 0400; last BP 138/77. Will watch her one more day and likely home tomorrow. Code(s): I95.9 - HYPOTENSION, UNSPECIFIED (5) Uncontrolled diabetes mellitus Current Visit: Yes Status: Acute Qualifiers: Diabetes mellitus type: type 2 Diabetes mellitus complication status: with hyperglycemia Diabetes mellitus alf insulin use: with intermodal dispatcher use Qualified Code(s): E11.65 - Type 2 diabetes mellitus with hyperglycemia; Z79.4 - terminal manager (current) use of insulin; Z79.4 - terminal manager (current) use of insulin ; Z79.4 - halfway (current) use of insulin; Z79.4 - halfway (current) use of insulin Assessment & Plan: check a1c Code(s): E11.65 - TYPE 2 DIABETES MELLITUS WITH HYPERGLYCEMIA
[2017-08-01] MEDS ORDERED: NON-FORMULARY ITEM (Omeprazole 20 Mg [Prilosec 20 Mg] 20 MG) PO SCH (10:00)
[2017-08-01] MEDS: OXYCODONE-ACETAMINOPHEN 10-325 PO PRN ×2 (10:15→16:28)
[2017-08-01] MEDS: ENOXAPARIN SODIUM SQ SCH (10:15)
[2017-08-01] MEDS: Protonix 40MG Tablet PO SCH (10:15)
[2017-08-01] MEDS: Sodium Chloride 0.9% 10 ML FLUSH Syringe IV SCH (10:16)
[2017-08-01] MEDS: NovoLOG Insulin SQ PRN ×3 (11:55→22:33)
[2017-08-01] MEDS: Klor Con 10 MEQ PO SCH (16:29)
[2017-08-01] MEDS ORDERED: Phenergan 25 MG INJ IV PRN (19:38)
[2017-08-01] MEDS: Lantus Insulin SQ SCH (21:05)
[2017-08-01] MEDS: ZOCOR 20MG PO SCH (21:05)
[2017-08-02] MEDS: Sodium Chloride 0.9% 1000 ML 1,000 ML IV SCH ×2 (00:25→06:57)
[2017-08-02] MEDS: OXYCODONE-ACETAMINOPHEN 10-325 PO PRN ×2 (01:25→08:13)
[2017-08-02 05:48] LABS: BASOPHIL % 0.5 % (0.0-0.4); Basophil (Absolute #) 0.02 (0-0.4); Eosinophil % 3.4 % (0.00-5.0); Eosinophil (Absolute #) 0.13 (0-0.5); Granulocyte Absolute (ANC) 1.68 (1.4-6.9); Hematocrit 38.6 % (35-47); Hemoglobin 12.3 gm/dl (12.0-16.0); Lymphocytes % 41.9 % (24.0-44.0); Mean Cell Volume 88.5 fl (78-100); Mean Corpuscular Hemoglobin 28.2 pg (26-32); Mean Corpuscular Hgb Concent. 31.9 g/dl (32-36); Mean Platelet Volume 11.2 fl (6-9.5); Monocyte (Absolute #) 0.39 (0.0-1.3); Monocytes % 10.2 % (0.0-12.0); Platelet Count 96 K/mm3 (150-450); Red Blood Count 4.36 M/mm3 (4.1-5.4); Red Cell Distribution Width 14.6 % (11.5-14.0); White Blood Count 3.8 K/mm3 (4.0-10.5)
[2017-08-02 06:14] LABS: ANION GAP 10.6 MEQ/L (5-15); BLOOD UREA NITROGEN 11 mg/dL (9-20); CHLORIDE 111 mEq/L (98-107); Calcium 8.1 mg/dL (8.5-10.1); Carbon Dioxide 25.6 mEq/L (21-32); Creatinine 1 0.88 mg/dl (0.55-1.30); Glucose 150 MG/DL (70-110); Potassium 3.9 mEq/L (3.5-5.1); SODIUM 143 mEq/L (136-145)
[2017-08-02] MEDS: Sodium Chloride 0.9% 10 ML FLUSH Syringe IV SCH ×2 (08:11→09:25)
[2017-08-02 08:28] LABS: Slide Review 1 YES
[2017-08-02] MEDS: Klor Con 10 MEQ PO SCH (09:21)
[2017-08-02] MEDS: Protonix 40MG Tablet PO SCH (09:21)
[2017-08-02] MEDS ORDERED: ENOXAPARIN SODIUM SQ SCH (10:00)
--- NOTE | 2017-08-02 13:23 | PCM.DS ---
Discharge Summary Date of Admission: 07/31/17 09:35 Admitting Physician: FELIPE LOPEZ Primary Care Provider: FELIPE LOPEZ Allergies Allergies adhesive tape Adverse Reaction (Intermediate, Verified 10/06/13 22:09) Hospital Summary - Hospital Course Hospital Course: Pt admitted through ER wiht dehydration and disoriented; found with vomit on her at home. Thought initially to be septic, she was found to simply be dehydrated. Improved remarkably with IV hydration. Lactate initially elevated to 4.3; nl with hydration. CBC nl on admission (a bit low today, likely dilutional). She is feeling much better. Vomited again last night, she thinks due to "nerves." No complaints today aside from chronic issues. Would like to be discharged to home. - Vitals & Intake/Output Vital Signs: Vital Signs Temperature 97.8 F 08/02/17 08:00 Pulse Rate 76 08/02/17 08:00 Respiratory Rate 18 08/02/17 08:00 Blood Pressure 131/60 08/02/17 08:00 O2 Sat by Pulse Oximetry 96 08/02/17 08:00 Intake & Output: Intake & Output 07/31/17 08/01/17 08/02/17 08/03/17 11:59 11:59 11:59 11:59 Intake Total 4406 2958 Output Total 1450 400 Balance 2956 2558 Weight 139.6 kg - Lab Result Diagrams: 08/02/17 05:15 08/02/17 05:15 Lab Results-Last 24 Hrs: Accuchecks Date 08/01/17 Date 08/01/17 Time 22:00 Accucheck Value: 164 Accucheck Value: 126 Accucheck Value: 204 Accucheck Value: 220 Lab Results-Last 24 Hours 08/02/17 08/02/17 Range/Units 05:15 05:15 WBC 3.8 L (4.0-10.5) K/mm3 RBC 4.36 (4.1-5.4) M/mm3 Hgb 12.3 (12.0-16.0) gm/dl Hct 38.6 (35-47) % MCV 88.5 (78-100) fl MCH 28.2 (26-32) pg MCHC 31.9 L (32-36) g/dl RDW 14.6 H (11.5-14.0) % Plt Count 96 L (150-450) K/mm3 MPV 11.2 H (6-9.5) fl Gran % 44.0 (36.0-66.0) % Lymphocytes % 41.9 (24.0-44.0) % Monocytes % 10.2 (0.0-12.0) % Eosinophils % 3.4 (0.00-5.0) % Basophils % 0.5 (0.0-0.4) % Basophils # 0.02 (0-0.4) Sodium 143 (136-145) mEq/L Potassium 3.9 (3.5-5.1) mEq/L Chloride 111 H (98-107) mEq/L Carbon Dioxide 25.6 (21-32) mEq/L Anion Gap 10.6 (5-15) MEQ/L BUN 11 (9-20) mg/dL Creatinine 0.88 (0.55-1.30) mg/dl Estimated GFR > 60 ML/MIN Glucose 150 H (70-110) MG/DL Calcium 8.1 L (8.5-10.1) mg/dL Slides for Path Review YES Micro Results-Entire Visit: Accuchecks Date 08/01/17 Date 08/01/17 Time 22:00 Accucheck Value: 164 Accucheck Value: 126 Accucheck Value: 204 Accucheck Value: 220 - Procedures and Test Procedures and Tests throughout Hospitalization: Therapy Orders & Screens 07/31/17 11:56 RT Screen per Nursing Assess ONCE Comment: Protocol Order Physician Instructions: Greater than 3 points order RT Admission Screen Reason For Exam: Triggered on Admission Diagnosis: hypotension; acute kidney injury; hypokalemia Diagnosis: hypotension; acute kidney injury; hypokalemia Pneumonia: No Home O2: No Asthma: No CHF: Yes Home CPAP/BIPAP: Yes Home Nebs/MDI: No Total Points: 8 07/31/17 22:00 BiPap/CPAP Assessment ROUTINE Comment: PER HOME SETTINGS ([id number]) Diagnosis: hypotension; acute kidney injury; hypokalemia Discharge Exam General Appearance: no apparent distress, obese Neurologic Exam: alert, oriented x 3, cooperative Skin Exam: normal color, warm, dry, No rash Respiratory Exam: normal breath sounds, lungs clear, No crackles/rales, No rhonchi, No wheezing Cardiovascular Exam: regular rate/rhythm, normal heart sounds, No murmur Gastrointestinal/Abdomen Exam: soft, No tenderness Extremity Exam: swelling (trace pretibial edema bilat) Final Diagnosis/Problem List - Final Discharge Diagnosis/Problem (1) Lethargy Current Visit: Yes Status: Resolved (2) Vomiting Current Visit: Yes Status: Resolved Assessment & Plan: If she tolerates breakfast, can d/c to home (3) ARF (acute renal failure) Current Visit: Yes Status: Resolved (4) Hypotension Current Visit: Yes Status: Resolved (5) Uncontrolled diabetes mellitus Current Visit: Yes Status: Chronic (6) Leukopenia Current Visit: Yes Status: Acute Assessment & Plan: I think dilutional; would recheck 1 wk (7) Thrombocytopenia Current Visit: Yes Status: Acute Assessment & Plan: I think dilutional; recheck 1 wk - Discharge Disposition: Home, Self-Care Condition: Good Prescriptions: Continue Lisinopril 20 mg [Zestril 20 MG] 40 mg PO DAILY Furosemide [Lasix] 40 mg PO DAILY PRN PRN PRN Reason: water retention Potassium Chloride 10 Meq Tab* [Klor Con 10 MEQ] 10 meq PO DAILY PRN PRN PRN Reason: supplement Insulin Glulisine [Apidra Solostar] 40 unit SQ BID Insulin Glargine,Hum.rec.anlog [Basaglar Kwikpen U-100] 80 unit SQ HS Gabapentin [Neurontin] 800 mg PO TID Atorvastatin Calcium [Lipitor 20MG Tablet] 20 mg PO HS Tizanidine HCl 4 mg [Zanaflex 4 MG] 4 mg PO HS Buprenorphine HCl [Belbuca] 150 mcg BC Q12H Omeprazole 20 MG [Prilosec 20 mg] 20 mg PO DAILY Instructions: Hypokalemia, Low Blood Pressure Additional Instructions: I have written to continue the buprenorphine; however I would like the pt hold this medicine until she can contact Dr. Charles's office. She is to let them know she was in the ER with lethargy over the weekend and ask if she is to continue taking the buprenorphine or if she needs to change dosage or medicine. Forms: Discharge Instructions
[2017-08-02 13:25] VITALS: BP 134/82; PULSE 77; O2SAT 97
== END 2017-08-02 14:10 | disposition home or self-care (01) | DRG 948 ==
LOC: ED 06:04 → ICU 09:35 → MED SURG 08-01 11:55
PROVIDERS: ADMIT Family Medicine; ATTEND Family Medicine
DX: R53.83 Other fatigue (principal); N17.9 Acute kidney failure, unspecified; R11.10 Vomiting, unspecified; I95.9 Hypotension, unspecified; E11.65 Type 2 diabetes mellitus with hyperglycemia; Z79.4 Long term (current) use of insulin; D72.819 Decreased white blood cell count, unspecified; D69.6 Thrombocytopenia, unspecified; G62.9 Polyneuropathy, unspecified; I50.9 Heart failure, unspecified; Z86.718 Personal history of other venous thrombosis and embolism; G47.30 Sleep apnea, unspecified; F32.9 Major depressive disorder, single episode, unspecified
CPT/HCPCS: 36000; 36415; 51702; 70450; 71045; 80048; 80053; 80307; 81002; 82805; 82962; 83036; 83605; 83735; 83880; 84132; 84484; 85025; 85610; 85730; 87040; 87086; 87631; 93041; 94660; 94760; 96360; 96361; 96365; 96366; 96367; 96374; 96375; 99285; G0480; J1650; J2270; J2310; J2405; J2543; J2550; J3010; J3370; J3480; A9270-GY

== ENCOUNTER 2018-07-15 20:46 | Emergency (ER) | payer OTHER ==
--- NOTE | 2018-07-15 22:56 | ERPHSYRPT ---
- History of Present Illness Source: patient Exam Limitations: no limitations Patient Subjective Stated Complaint: pt is alert and oriented. pt is ambulatory with walker. pt comes in with complaint of right arm pain that started 2 weeks ago and has gotten progressively worse. pt has history of DVT in right leg. pt upper arm is slightly reddened. pt brachial and radial pulses strong and equal. pt skin is PWD on affected arm. no loss of sensation. pt does not recall any injury or trauma. history of bursitis in right shoulder. Triage Nursing Assessment: see above Physician History: Pt is a 53 y/o female that presented to the ED with complains of right arm pain. Pt states, that it feels like her DVT that she had in the past in her LE. Pt denies trauma. No F/C/S. No N/V?D or abdominal pain. Pt is not on anti coagulation now, as she finished her therapy. Occurred: days ago Quality: constant, stabbing, throbbing Extremities Pain Location: shoulder: right (pain with movement), arm: right ( pain with movement) Modifying Factors: Improves With: nothing Associated Symptoms: none Allergies/Adverse Reactions: adhesive tape Adverse Reaction (Intermediate, Verified 10/06/13 22:09) Home Medications: Lisinopril 20 mg [Zestril 20 MG] 40 mg PO DAILY 08/25/12 [History] Furosemide [Lasix] 40 mg PO DAILY PRN PRN 10/06/13 [History] Atorvastatin Calcium [Lipitor 20MG Tablet] 20 mg PO HS 06/11/17 [History] Gabapentin [Neurontin] 800 mg PO TID 06/11/17 [History] Insulin Glargine,Hum.rec.anlog [Basaglar Kwikpen U-100] 80 unit SQ HS 06/11/17 [ History] Insulin Glulisine [Apidra Solostar] 40 unit SQ BID 06/11/17 [History] Potassium Chloride 10 Meq Tab* [Klor Con 10 MEQ] 10 meq PO DAILY PRN PRN 04/18 [History] Buprenorphine HCl [Belbuca] 150 mcg BC Q12H 07/31/17 [History] Omeprazole 20 MG [Prilosec 20 mg] 20 mg PO DAILY 07/31/17 [History] Tizanidine HCl 4 mg [Zanaflex 4 MG] 4 mg PO HS 07/31/17 [History] Hx Tetanus, Diphtheria Vaccination/Date Given: No (unsure) Hx Influenza Vaccination/Date Given: Yes (2012) Hx Pneumococcal Vaccination/Date Given: Yes (w/in 5 years) Immunizations Up to Date: Yes - Review of Systems Constitutional: No Fever, No Chills Respiratory: No Cough, No Dyspnea Cardiac: No Chest Pain, No Edema, No Syncope Abdominal/Gastrointestinal: No Abdominal Pain, No Nausea, No Vomiting, No Diarrhea Musculoskeletal: Arthralgias, Joint Pain, Myalgias Neurological: No Dizziness, No Focal Weakness, No Sensory Changes - Past Medical History Pertinent Past Medical History: Yes Neurological History: Peripheral Neuropathy, Other ENT History: No Pertinent History Cardiac History: Congestive Heart Failure, Deep Vein Thrombosis Respiratory History: CHF, Sleep Apnea Endocrine Medical History: Diabetes Type II Musculoskeletal History: Other GI Medical History: Pancreatitis, Other History: No Pertinent History Psycho-Social History: No Pertinent History Female Reproductive Disorders: No Pertinent History Other Medical History: slow digestive system - Past Surgical History Past Surgical History: Yes Neuro Surgical History: No Pertinent History Cardiac: No Pertinent History Respiratory: No Pertinent History Gastrointestinal: Other Genitourinary: No Pertinent History Musculoskeletal: No Pertinent History Female Surgical History: Tubal Ligation, Other Other Surgical History: d & c, (rectal surgery x3, cyst removed from rectum). cyst removed from pancreas - Social History Smoking Status: Never smoker Exposure to second hand smoke: No Drug Use: none Patient Lives Alone: No - Female History Hx Now: No - Nursing Vital Signs Nursing Vital Signs: Initial Vital Signs Temperature 98.5 F 07/15/18 20:57 Pulse Rate 81 07/15/18 20:57 Respiratory Rate 18 07/15/18 20:57 Blood Pressure 178/82 07/15/18 20:57 O2 Sat by Pulse Oximetry 98 07/15/18 20:57 Pain Scale Pain Intensity 8 - Physical Exam General Appearance: alert Cardiovascular/Respiratory Exam: chest non-tender, normal breath sounds, regular rate/rhythm, no respiratory distress Abdominal Exam: non-tender, No guarding Shoulder Exam: no evidence of injury, limited ROM, pain Elbow/Forearm Exam: limited ROM, pain, soft tissue tenderness Neuro/Tendon Exam: normal sensation, normal motor functions SpO2 Interpretation: normal SpO2: 95 O2 Delivery: Room Air - Course Nursing assessment & vital signs reviewed: Yes - Radiology Exams Right Shoulder X-ray Interpretation: Interpreted by me (No fracture. Osteoarthritis of the shoulder.) - Radiology Ultrasound Exam Right Venous Upper Extremity Ultrasound: Other (No DVT) Ordered Tests: Active Orders 24 hr Category Date Time Status SHOULDER Stat Exams 07/15/18 22:34 Taken VENOUS UNILAT/LIMITED EXTREMIT [US] Stat Exams 07/15/18 22:11 Taken D-DIMER QUANTITATION Stat Lab 07/15/18 21:25 Completed Lab/Rad Data: Laboratory Results 07/15/18 Range/Units 21:25 D-Dimer 239 (215-500) ng/mL - Progress Progress: unchanged Progress Note: 07/15/18 23:02 Pt had normal D-Dimer. XR did not show any fracture, but did have OA. Pt was informed, and was referred to her PCP for a work up. Will see patient in: office Counseled pt/family regarding: diagnosis, need for follow-up, rad results - Departure Time of Disposition: 23:03 Departure Disposition: Home Clinical Impression: Shoulder arthritis Condition: Stable Critical Care Time: No Referrals: FELIPE LOPEZ [Primary Care Provider] - Additional Instructions: F/U with PCP.
[2018-07-15 23:09] VITALS: BP 154/67; PULSE 80; O2SAT 96
--- NOTE | 2018-07-16 09:03 | XRAY ---
Indication: Pain 3 weeks. No known injury. Comparison: None 3 views of the right shoulder demonstrates moderate AC degenerative arthropathy. No other bony, articular, or soft tissue abnormalities.
--- NOTE | 2018-07-16 09:08 | XRAY ---
Indication: Right arm pain 3 weeks. Two-dimensional sonogram and color Doppler imaging of the major venous vessels of the right upper extremity was performed. Comparison: None No thrombus seen in the visualized right jugular, subclavian, axillary, cephalic, brachial, basilic, median cubital, radial, and ulnar veins. Veins demonstrate normal compressibility. Venous waveforms are normal with and without augmentation. Impression: Right upper extremity negative for DVT. Comment: Preliminary report was given.
== END 2018-07-15 23:36 | disposition home or self-care (01) ==
LOC: ED 20:46
DX: M19.011 Primary osteoarthritis, right shoulder (principal); Z79.899 Other long term (current) drug therapy; I50.9 Heart failure, unspecified; Z86.718 Personal history of other venous thrombosis and embolism; E11.9 Type 2 diabetes mellitus without complications
CPT/HCPCS: 36415; 73030; 85379; 93971; 99284

== ENCOUNTER 2020-02-08 14:16 | Emergency (ER) | payer OTHER ==
[2020-02-08] MEDS ORDERED: Zofran 4 MG/2 ML VIAL IV ONE (14:45)
[2020-02-08] MEDS ORDERED: Hydromorphone 1 mg/ml Ampule IV ONE ×2 (14:45→17:12)
[2020-02-08] MEDS ORDERED: Hydromorphone 1 mg/ml Ampule ONE ×2 (14:54→17:13)
[2020-02-08] MEDS ORDERED: Zofran 4 MG/2 ML VIAL ONE (14:54)
[2020-02-08 15:17] LABS: Absolute Neutrophil Ct (ANC) 3.94 (1.4-6.9); BASOPHIL % 0.3 % (0.0-0.4); Basophil (Absolute #) 0.02 (0-0.4); Eosinophil % 1.5 % (0.00-5.0); Eosinophil (Absolute #) 0.09 (0-0.5); Hematocrit 44.1 % (35-47); Hemoglobin 14.2 gm/dl (12.0-16.0); Lymphocyte (Absolute #) 1.51 (1.0-4.6); Lymphocytes % 25.1 % (24.0-44.0); Mean Cell Volume 89.3 fl (78-100); Mean Corpuscular Hemoglobin 28.7 pg (26-32); Mean Corpuscular Hgb Concent. 32.2 g/dl (32-36); Mean Platelet Volume 11.8 fl (7.5-11.0); Monocyte (Absolute #) 0.46 (0.0-1.3); Monocytes % 7.6 % (0.0-12.0); Neutrophil % 65.5 % (36.0-66.0); Platelet Count 110 K/mm3 (150-450); Red Blood Count 4.94 M/mm3 (4.1-5.4); Red Cell Distribution Width 14.7 % (11.5-14.0)
[2020-02-08 15:25] LABS: ALBUMIN 3.8 g/dL (3.5-5.0); ALKALINE PHOSPHATASE 106 U/L (38-126); AMYLASE 32 U/L (30-110); ANION GAP 11.6 MEQ/L (5-15); BLOOD UREA NITROGEN 16 mg/dL (7-17); CHLORIDE 99 mmol/L (98-107); Calcium 9.9 mg/dL (8.4-10.2); Carbon Dioxide 32 mmol/L (22-30); Creatinine 1 0.78 mg/dL (0.52-1.04); EST GLOMERULAR FILTRATION RATE > 60.0 ML/MIN; Glucose 271 mg/dL (74-106); LIPASE 50 U/L (23-300); SGOT/AST 42 U/L (14-36); SGPT/ALT 28 U/L (0-35); SODIUM 138 mmol/L (137-145); Total Protein 7.6 g/dL (6.3-8.2)
--- NOTE | 2020-02-08 16:44 | XRAY ---
Indication: Abdomen pain. Multiple contiguous axial images obtained through the abdomen and pelvis using 80 cc of Isovue 370 contrast only. Comparison: July 24, 2012. Lung bases are clear. Heart is not enlarged. Stomach is distended with food/fluid. Noncontrasted stomach and bowel loops appear nonobstructed. Appendix not seen. Mild scattered colonic fecal debris throughout predominately in the ascending and transverse colon. No free fluid/air. Enlarged and nodular appearing uterus favoring uterine leiomyomatosis. Again previous cholecystectomy. Again incidental 5 mm left renal cortical cyst, 20.5 cm fatty hepatomegaly, and 16.2 cm splenomegaly. Remaining liver, pancreas, spleen, adrenal glands, kidneys, ureters, and bladder appear unremarkable. Minimal aortoiliac calcifications. No AAA or pathological retroperitoneal lymphadenopathy. Osseous structures intact with mild degenerative changes throughout the thoracolumbar spine and mild degenerative changes both hips. No ventral or inguinal hernias. Impression: 1. Mild diffuse fecal stasis without obstruction. 2. Continued enlarged and nodular uterus favoring leiomyomatosis. 3. Again incidental fatty hepatomegaly, splenomegaly, and left renal cyst.
--- NOTE | 2020-02-08 17:05 | ERPHSYRPT ---
- History of Present Illness Time Seen by Provider: 02/08/20 15:00 Historian: patient Exam Limitations: no limitations Patient Subjective Stated Complaint: abd pain Triage Nursing Assessment: pt to ED c/o abd pain x 1 week r/t hernia at umbilicus, had hernia repair 5-6 years ago and had no problems until now. denies vomiting/bowel or urinary issues, some nausea today. rates 8/10 pain and is tender to palp. Physician History: Complains of pain in a nodular area above into the right of the umbilicus which she fears is a recurrent hernia. Allergies/Adverse Reactions: adhesive tape Adverse Reaction (Intermediate, Verified 02/08/20 14:45) Home Medications: Lisinopril 20 mg [Zestril 20 MG] 40 mg PO DAILY 08/25/12 [History] Furosemide [Lasix] 40 mg PO DAILY PRN PRN 10/06/13 [History] Atorvastatin Calcium [Lipitor 20MG Tablet] 20 mg PO HS 06/11/17 [History] Gabapentin [Neurontin] 800 mg PO TID 06/11/17 [History] Insulin Glargine,Hum.rec.anlog [Basaglar Kwikpen U-100] 80 unit SQ HS 06/11/17 [History] Insulin Glulisine [Apidra Solostar] 40 unit SQ BID 06/11/17 [History] Potassium Chloride 10 Meq Tab* [Klor Con 10 MEQ] 10 meq PO DAILY PRN PRN 04/18 [History] Buprenorphine HCl [Belbuca] 150 mcg BC Q12H 07/31/17 [History] Omeprazole 20 MG [Prilosec 20 mg] 20 mg PO DAILY 07/31/17 [History] Tizanidine HCl 4 mg [Zanaflex 4 MG] 4 mg PO HS 07/31/17 [History] Hx Tetanus, Diphtheria Vaccination/Date Given: No (unsure) Hx Influenza Vaccination/Date Given: No (2012) Hx Pneumococcal Vaccination/Date Given: Yes (w/in 5 years) Travel Risk - International Travel Have you traveled outside of the country in past 3 weeks: No - Coronavirus Screening Are you exhibiting any of the following symptoms?: No Close contact with a COVID-19 positive Pt in past 14-21 Days: No - Review of Systems Constitutional: No Fever, No Chills Eyes: No Symptoms Ears, Nose, & Throat: No Symptoms Respiratory: No Cough, No Dyspnea Cardiac: No Chest Pain, No Edema, No Syncope Abdominal/Gastrointestinal: Abdominal Pain, No Nausea, No Vomiting, No Diarrhea Genitourinary Symptoms: No Dysuria Musculoskeletal: No Back Pain, No Neck Pain Skin: No Rash Neurological: No Dizziness, No Focal Weakness, No Sensory Changes Psychological: No Symptoms Endocrine: No Symptoms All Other Systems: Reviewed and Negative - Past Medical History Pertinent Past Medical History: Yes Neurological History: Peripheral Neuropathy, Other ENT History: No Pertinent History Cardiac History: Hypertension Respiratory History: CHF, Sleep Apnea Endocrine Medical History: Diabetes Type II Musculoskeletal History: Osteoarthritis GI Medical History: Pancreatitis, Other History: No Pertinent History Psycho-Social History: No Pertinent History Female Reproductive Disorders: No Pertinent History Other Medical History: BURSITIS TO BOTH SHOULDERS, NEUROPATHY THROUGHOUT HER BODY (INCLUDING STOMACH, BUTTOCKSk) - Past Surgical History Past Surgical History: Yes Neuro Surgical History: No Pertinent History Cardiac: No Pertinent History Respiratory: No Pertinent History Gastrointestinal: Other Genitourinary: No Pertinent History Musculoskeletal: No Pertinent History Female Surgical History: Tubal Ligation, Other Other Surgical History: d & c, (rectal surgery x3, cyst removed from rectum). cyst removed from pancreas - Social History Smoking Status: Never smoker Exposure to second hand smoke: No Drug Use: none Patient Lives Alone: No - Female History Hx Now: No - Nursing Vital Signs Nursing Vital Signs: Initial Vital Signs Temperature 98.5 F 02/08/20 14:35 Pulse Rate 87 02/08/20 14:35 Respiratory Rate 20 02/08/20 14:35 O2 Sat by Pulse Oximetry 97 02/08/20 14:35 Pain Scale Pain Intensity 6 - Physical Exam General Appearance: no apparent distress, alert Eye Exam: PERRL/EOMI, eyes nml inspection Ears, Nose, Throat Exam: normal ENT inspection, pharynx normal, moist mucous membranes Neck Exam: normal inspection, non-tender, supple, full range of motion Respiratory Exam: normal breath sounds, lungs clear, No respiratory distress Cardiovascular Exam: regular rate/rhythm, normal heart sounds Gastrointestinal/Abdomen Exam: soft, tenderness (This in a subcutaneous mass to above and to the right of the umbilicus is not reducible it is quite firm and is quite mobile), No mass Back Exam: normal inspection, normal range of motion, No CVA tenderness, No vertebral tenderness Extremity Exam: normal inspection, normal range of motion, pelvis stable Neurologic Exam: alert, oriented x 3, cooperative, normal mood/affect, nml cereb ellar function, sensation nml, No motor deficits Skin Exam: normal color, warm, dry SpO2: 92 - CT Exams Abdomen/Pelvis CT Interpretation: Other (Examination under CT exam shows no hernia) Ordered Tests: Active Orders 24 hr Category Date Time Status IV Insertion STAT Care 02/08/20 14:45 Active Oxygen-ED Only Nasal Cannula 2 lpm Care 02/08/20 15:05 Active ABDOMEN AND PELVIS W CONTRAST [CT] Stat Exams 02/08/20 14:45 Completed AMYLASE Stat Lab 02/08/20 15:00 Completed CBC W DIFF Stat Lab 02/08/20 15:00 Completed CMP Stat Lab 02/08/20 15:00 Completed LIPASE Stat Lab 02/08/20 15:00 Completed Lactic Acid Stat Lab 02/08/20 14:45 Completed Medication Summary Discontinued Medications Generic Name Dose Route Start Last Admin Trade Name Freq PRN Reason Stop Dose Admin Hydromorphone HCl 1 mg 02/08/20 14:45 02/08/20 14:58 Hydromorphone 1 Mg/Ml Ampule IV 02/08/20 14:46 1 mg STAT ONE Administration Hydromorphone HCl Confirm 02/08/20 14:54 Hydromorphone 1 Mg/Ml Ampule Administered 02/08/20 14:55 Dose 1 mg .ROUTE .STK-MED ONE Ondansetron HCl 4 mg 02/08/20 14:45 02/08/20 14:58 Zofran 4 Mg/2 Ml Vial IV 02/08/20 14:46 4 mg STAT ONE Administration Ondansetron HCl Confirm 02/08/20 14:54 Zofran 4 Mg/2 Ml Vial Administered 02/08/20 14:55 Dose 4 mg .ROUTE .STK-MED ONE Lab/Rad Data: Laboratory Result Diagrams 02/08/20 15:00 02/08/20 15:00 Laboratory Results 02/08/20 02/08/20 02/08/20 Range/Units 15:00 15:00 14:45 WBC 6.0 (4.0-10.5) K/mm3 RBC 4.94 (4.1-5.4) M/mm3 Hgb 14.2 (12.0-16.0) gm/dl Hct 44.1 (35-47) % MCV 89.3 (78-100) fl MCH 28.7 (26-32) pg MCHC 32.2 (32-36) g/dl RDW 14.7 H (11.5-14.0) % Plt Count 110 L (150-450) K/mm3 MPV 11.8 H (7.5-11.0) fl Gran % 65.5 (36.0-66.0) % Eos # (Auto) 0.09 (0-0.5) Absolute Lymphs (auto) 1.51 (1.0-4.6) Absolute Monos (auto) 0.46 (0.0-1.3) Lymphocytes % 25.1 (24.0-44.0) % Monocytes % 7.6 (0.0-12.0) % Eosinophils % 1.5 (0.00-5.0) % Basophils % 0.3 (0.0-0.4) % Absolute Granulocytes 3.94 (1.4-6.9) Basophils # 0.02 (0-0.4) Sodium 138 (137-145) mmol/L Potassium 4.0 (3.5-5.1) mmol/L Chloride 99 (98-107) mmol/L Carbon Dioxide 32 H (22-30) mmol/L Anion Gap 11.6 (5-15) MEQ/L BUN 16 (7-17) mg/dL Creatinine 0.78 (0.52-1.04) mg/dL Estimated GFR > 60.0 ML/MIN Glucose 271 H (74-106) mg/dL Lactic Acid 2.3 H (0.4-2.0) Calcium 9.9 (8.4-10.2) mg/dL Total Bilirubin 0.50 (0.2-1.3) mg/dL AST 42 H (14-36) U/L ALT 28 (0-35) U/L Alkaline Phosphatase 106 (38-126) U/L Serum Total Protein 7.6 (6.3-8.2) g/dL Albumin 3.8 (3.5-5.0) g/dL Amylase 32 (30-110) U/L Lipase 50 (23-300) U/L - Progress Progress: unchanged - Departure Departure Disposition: Home Clinical Impression: Abscess of abdominal wall Condition: Stable Critical Care Time: No Referrals: FELIPE LEDESMA [Primary Care Provider] - Instructions: Skin Abscess Prescriptions: clindamycin HCL [Cleocin HCl] 300 mg PO TID 10 Days #30 capsule
[2020-02-08 17:14] VITALS: BP 129/51; PULSE 73; O2SAT 99
== END 2020-02-08 17:32 | disposition home or self-care (01) ==
LOC: ED 14:16
DX: L02.211 Cutaneous abscess of abdominal wall (principal)
CPT/HCPCS: 36000; 36415; 74177; 80053; 82150; 83605; 83690; 85025; 96374; 96375; 96376; 99284; J1170; J2405

== ENCOUNTER 2020-02-13 15:16 | Emergency (ER) | payer OTHER ==
[2020-02-13 15:56] LABS: Absolute Neutrophil Ct (ANC) 3.34 (1.4-6.9); BASOPHIL % 0.4 % (0.0-0.4); Basophil (Absolute #) 0.02 (0-0.4); Eosinophil % 2.7 % (0.00-5.0); Eosinophil (Absolute #) 0.14 (0-0.5); Hematocrit 45.8 % (35-47); Hemoglobin 14.5 gm/dl (12.0-16.0); Lymphocytes % 24.8 % (24.0-44.0); Mean Cell Volume 91.2 fl (78-100); Mean Corpuscular Hemoglobin 28.9 pg (26-32); Mean Corpuscular Hgb Concent. 31.7 g/dl (32-36); Mean Platelet Volume 11.1 fl (7.5-11.0); Monocyte (Absolute #) 0.44 (0.0-1.3); Monocytes % 8.4 % (0.0-12.0); Neutrophil % 63.7 % (36.0-66.0); Platelet Count 111 K/mm3 (150-450); Red Blood Count 5.02 M/mm3 (4.1-5.4); Red Cell Distribution Width 14.7 % (11.5-14.0); White Blood Count 5.2 K/mm3 (4.0-10.5)
[2020-02-13] MEDS ORDERED: TORAdol 30 mg Injection IV ONE (16:01)
[2020-02-13] MEDS ORDERED: TORAdol 30 mg Injection ONE (16:03)
--- NOTE | 2020-02-13 16:07 | ERPHSYRPT ---
- History of Present Illness Source: patient Patient Subjective Stated Complaint: PT states "I noticed this about a week ago and it is getting redder and redder." Triage Nursing Assessment: Pt presented alert and oriented X 3, skin pwd. pt ambulates with a slow shuffling gait. Pt has 6 cm x 7cm abscess on right lower quadrant of abdomen. no drainaige noted. Physician History: 55 yo morbidly obese Wf w possible abscess on abdomen x 10 days. Pt has been seen in ER and started on Clindamycin without improvement. Pt denies fever/trauma and has a h/o abscesses. Timing/Duration: other (10days) Quality: painful Severity: moderate Location: other (Abdomen) Possible Causes: no cause identified Modifying Factors: Worsens With: antihistamine, calamine lotion, prednisone, scratching, topical steriods Associated Symptoms: edema, No blisters, No change in skin texture, No difficulty breathing, No fever, No flushing, No headache, No hives, No jaundice, No malaise, No nasal congestion, No numbness, No pallor, No paresthesia, No petechiae, No rash, No sore throat, No swelling/mass/lumps, No tingling Allergies/Adverse Reactions: adhesive tape Adverse Reaction (Intermediate, Verified 02/08/20 14:45) Home Medications: Lisinopril 20 mg [Zestril 20 MG] 40 mg PO DAILY 08/25/12 [History] Furosemide [Lasix] 40 mg PO DAILY PRN PRN 10/06/13 [History] Atorvastatin Calcium [Lipitor 20MG Tablet] 20 mg PO HS 06/11/17 [History] Gabapentin [Neurontin] 800 mg PO TID 06/11/17 [History] Insulin Glargine,Hum.rec.anlog [Basaglar Kwikpen U-100] 80 unit SQ HS 06/11/17 [History] Insulin Glulisine [Apidra Solostar] 40 unit SQ BID 06/11/17 [History] Potassium Chloride 10 Meq Tab* [Klor Con 10 MEQ] 10 meq PO DAILY PRN PRN 06/11/17 [History] Buprenorphine HCl [Belbuca] 150 mcg BC Q12H 07/31/17 [History] Omeprazole 20 MG [Prilosec 20 mg] 20 mg PO DAILY 07/31/17 [History] Tizanidine HCl 4 mg [Zanaflex 4 MG] 4 mg PO HS 07/31/17 [History] Hx Tetanus, Diphtheria Vaccination/Date Given: Yes Hx Influenza Vaccination/Date Given: No Hx Pneumococcal Vaccination/Date Given: No Immunizations Up to Date: Yes Travel Risk - International Travel Have you traveled outside of the country in past 3 weeks: No - Coronavirus Screening Are you exhibiting any of the following symptoms?: No Close contact with a COVID-19 positive Pt in past 14-21 Days: No - Review of Systems Constitutional: No Symptoms Eyes: No Symptoms Ears, Nose, & Throat: No Symptoms Respiratory: No Symptoms Cardiac: No Symptoms Genitourinary Symptoms: No Symptoms Musculoskeletal: No Symptoms Neurological: No Symptoms Psychological: No Symptoms Endocrine: No Symptoms Hematologic/Lymphatic: No Symptoms Immunological/Allergic: No Symptoms - Past Medical History Pertinent Past Medical History: Yes Neurological History: Peripheral Neuropathy, Other ENT History: No Pertinent History Cardiac History: Hypertension Respiratory History: CHF, Sleep Apnea Endocrine Medical History: Diabetes Type II Musculoskeletal History: Osteoarthritis GI Medical History: Pancreatitis, Other History: No Pertinent History Psycho-Social History: No Pertinent History Female Reproductive Disorders: No Pertinent History Other Medical History: BURSITIS TO BOTH SHOULDERS, NEUROPATHY THROUGHOUT HER BODY (INCLUDING STOMACH, BUTTOCKSk) - Past Surgical History Past Surgical History: Yes Neuro Surgical History: No Pertinent History Cardiac: No Pertinent History Respiratory: No Pertinent History Gastrointestinal: Other Genitourinary: No Pertinent History Musculoskeletal: No Pertinent History Female Surgical History: Tubal Ligation, Other Other Surgical History: d & c, (rectal surgery x3, cyst removed from rectum). cyst removed from pancreas - Social History Smoking Status: Never smoker Exposure to second hand smoke: Yes Drug Use: none Patient Lives Alone: No Significant Family History: no pertinent family hx - Female History Hx Last Menstrual Period: no more Hx Now: No - Nursing Vital Signs Nursing Vital Signs: Initial Vital Signs Temperature 98.1 F 02/13/20 15:25 Pulse Rate 86 02/13/20 15:25 Respiratory Rate 20 02/13/20 15:25 Blood Pressure 156/66 02/13/20 15:25 O2 Sat by Pulse Oximetry 98 02/13/20 15:25 Pain Scale Pain Intensity 8 - Physical Exam General Appearance: no apparent distress Eye Exam: PERRL/EOMI, eyes nml inspection Ears, Nose, Throat Exam: normal ENT inspection, pharynx normal Neck Exam: normal inspection, non-tender, supple, full range of motion, No meningismus, No mass, No Brudzinski Respiratory Exam: normal breath sounds, lungs clear, airway intact, No respiratory distress Cardiovascular Exam: regular rate/rhythm, normal heart sounds, normal peripheral pulses, No murmur Gastrointestinal/Abdomen Exam: normal bowel sounds, other (Area of edema RLQ w TTP/Mild erythema) Extremity Exam: normal inspection, normal range of motion, pelvis stable Neurologic Exam: alert, oriented x 3, cooperative, quarantine inspector II-XII nml as tested, normal mood/affect, sensation nml, No motor deficits, No sensory deficit Skin Exam: normal color, warm, dry Lymphatic Exam: No adenopathy SpO2 Interpretation: normal SpO2: 98 O2 Delivery: Room Air Procedures - Incision and Drainage Anesthesia: 1% Lidocaine cc's of anesthesia: other (8ml) Blade Size: 11 I & D Procedure: betadine prep Results: large amount pus Progress: Large amount of pus drained/Probed w curved hemostats to break up loculations/No comps - Course Nursing assessment & vital signs reviewed: Yes - CT Exams Abdomen/Pelvis CT Interpretation: Discussed w/radiologist (Large area of fluid/No bowel under lesion) Ordered Tests: Active Orders 24 hr Category Date Time Status ABDOMEN AND PELVIS W/0 CONTRAS [CT] Stat Exams 02/13/20 15:42 Completed CBC W DIFF Stat Lab 02/13/20 15:54 Completed CMP Stat Lab 02/13/20 15:54 Completed Lactic Acid Stat Lab 02/13/20 15:41 Completed Medication Summary Discontinued Medications Generic Name Dose Route Start Last Admin Trade Name Freq PRN Reason Stop Dose Admin Fentanyl Citrate 50 mcg 02/13/20 16:45 02/13/20 17:02 Sublimaze 100 Mcg/2 Ml IV 02/13/20 16:46 50 mcg STAT ONE Administration Fentanyl Citrate Confirm 02/13/20 16:56 Sublimaze 100 Mcg/2 Ml Administered 02/13/20 16:57 Dose 100 mcg .ROUTE .STK-MED ONE Ketorolac Tromethamine 15 mg 02/13/20 16:01 02/13/20 16:04 Toradol 30 Mg Injection IV 02/13/20 16:02 15 mg STAT ONE Administration Ketorolac Tromethamine Confirm 02/13/20 16:03 Toradol 30 Mg Injection Administered 02/13/20 16:04 Dose 30 mg .ROUTE .STK-MED ONE Lidocaine HCl Confirm 02/13/20 17:16 Xylocaine 1% Hcl 20 Ml Mdv Administered 02/13/20 17:17 Dose 5 ml .ROUTE .STK-MED ONE Ondansetron HCl 4 mg 02/13/20 16:45 02/13/20 17:02 Zofran 4 Mg/2 Ml Vial IV 02/13/20 16:46 4 mg STAT ONE Administration Ondansetron HCl Confirm 02/13/20 16:55 Zofran 4 Mg/2 Ml Vial Administered 02/13/20 16:56 Dose 4 mg .ROUTE .STK-MED ONE Lab/Rad Data: Laboratory Result Diagrams 02/13/20 15:54 02/13/20 15:54 Laboratory Results 02/13/20 02/13/20 02/13/20 Range/Units 15:54 15:54 15:41 WBC 5.2 (4.0-10.5) K/mm3 RBC 5.02 (4.1-5.4) M/mm3 Hgb 14.5 (12.0-16.0) gm/dl Hct 45.8 (35-47) % MCV 91.2 (78-100) fl MCH 28.9 (26-32) pg MCHC 31.7 L (32-36) g/dl RDW 14.7 H (11.5-14.0) % Plt Count 111 L (150-450) K/mm3 MPV 11.1 H (7.5-11.0) fl Gran % 63.7 (36.0-66.0) % Eos # (Auto) 0.14 (0-0.5) Absolute Lymphs (auto) 1.30 (1.0-4.6) Absolute Monos (auto) 0.44 (0.0-1.3) Lymphocytes % 24.8 (24.0-44.0) % Monocytes % 8.4 (0.0-12.0) % Eosinophils % 2.7 (0.00-5.0) % Basophils % 0.4 (0.0-0.4) % Absolute Granulocytes 3.34 (1.4-6.9) Basophils # 0.02 (0-0.4) Sodium 140 (137-145) mmol/L Potassium 4.3 (3.5-5.1) mmol/L Chloride 101 (98-107) mmol/L Carbon Dioxide 34 H (22-30) mmol/L Anion Gap 9.5 (5-15) MEQ/L BUN 18 H (7-17) mg/dL Creatinine 0.95 (0.52-1.04) mg/dL Estimated GFR > 60.0 ML/MIN Glucose 258 H (74-106) mg/dL Lactic Acid 2.4 H (0.4-2.0) Calcium 9.3 (8.4-10.2) mg/dL Total Bilirubin 0.70 (0.2-1.3) mg/dL AST 41 H (14-36) U/L ALT 25 (0-35) U/L Alkaline Phosphatase 97 (38-126) U/L Serum Total Protein 7.8 (6.3-8.2) g/dL Albumin 3.8 (3.5-5.0) g/dL - Progress Progress: improved Progress Note: 02/13/20 17:26 Pt given 15mg IV toradol wo improvement. 50umg IV Fentanyl-4mg IV zofran given w improvement in pain. Counseled pt/family regarding: lab results, need for follow-up, rad results - Departure Departure Disposition: Home Clinical Impression: Abscess Condition: Stable Critical Care Time: No Referrals: FELIPE LEDESMA [Primary Care Provider] - Instructions: Abscess Incision and Drainage (DC) Additional Instructions: Follow up with family MD in 1-2 days Wash area twice a day with soap/water Area is expected to drain which is normal Return to ER for increasing pain/redness/swelling/temperature greater than 100.5 Prescriptions: Hydrocodone Bit/Acetaminophen [[place] 10-325 Tablet] 1 each PO Q4H PRN PRN #6 tablet PRN Reason: Pain Doxycycline Monohydrate 100 mg PO BID #20 capsule
[2020-02-13 16:08] LABS: ALBUMIN 3.8 g/dL (3.5-5.0); ALKALINE PHOSPHATASE 97 U/L (38-126); ANION GAP 9.5 MEQ/L (5-15); BLOOD UREA NITROGEN 18 mg/dL (7-17); CHLORIDE 101 mmol/L (98-107); Calcium 9.3 mg/dL (8.4-10.2); Carbon Dioxide 34 mmol/L (22-30); Creatinine 1 0.95 mg/dL (0.52-1.04); EST GLOMERULAR FILTRATION RATE > 60.0 ML/MIN; Glucose 258 mg/dL (74-106); Potassium 4.3 mmol/L (3.5-5.1); SGOT/AST 41 U/L (14-36); SGPT/ALT 25 U/L (0-35); SODIUM 140 mmol/L (137-145); Total Protein 7.8 g/dL (6.3-8.2)
[2020-02-13] MEDS ORDERED: Zofran 4 MG/2 ML VIAL IV ONE (16:45)
[2020-02-13] MEDS ORDERED: SUBLIMAZE 100 MCG/2 ML IV ONE (16:45)
[2020-02-13 16:53] VITALS: BP 101/55; PULSE 79
[2020-02-13] MEDS ORDERED: Zofran 4 MG/2 ML VIAL ONE (16:55)
[2020-02-13] MEDS ORDERED: SUBLIMAZE 100 MCG/2 ML ONE (16:56)
[2020-02-13] MEDS ORDERED: XYLOCAINE 1% HCL 20 ML MDV ONE (17:16)
[2020-02-13 17:28] VITALS: O2SAT 98
--- NOTE | 2020-02-13 17:49 | XRAY ---
Exam: CT of the abdomen and pelvis without IV contrast from 02/13/2020. CTDI: 32.42 mGy Comparison: CT of the abdomen and pelvis with IV contrast from 02/08/2020. Indication: 55-year-old female with abdominal mass, wound on abdomen; patient states she has a cyst on her stomach and that she just had a CT 4 days ago, pain. The patient has a history of prior cholecystectomy and tubal ligation. Indication: Non-IV contrast axial images were obtained through the abdomen and pelvis. Reconstructed coronal and sagittal images were created and reviewed. Findings: The CT forming department supervisor films reveal abundant air within the body and antrum of the stomach, as before. The visualized lung bases remain clear. The transverse heart size appears within normal limits. Bilateral epicardial fat pads are seen at the cardiophrenic angles. I see a 1.2 cm oval-shaped apparent lymph node within the right cardiophrenic angle which is unchanged from 02/08/2020. Abundant secretions/debris are seen within the gastric fundus representing no change. The bowel appears nonobstructed. Scattered stool is seen throughout the colon consistent with fecal stasis. No bowel wall thickening is seen. I see no free intraperitoneal air or free intraperitoneal fluid. Within the subcutaneous fat of the upper anterior abdominal wall centered about 4.2 cm to the right of midline, I note some focal skin thickening. Immediately posterior to this within the subcutaneous fat, there is an ill-defined soft tissue density measuring approximately 4.2 cm in craniocaudal dimension, 3.0 cm in AP dimension, and 3.3 cm in width. I see no significant fluid component within it or bubbles of air. This soft tissue density is distinct from the anterior abdominal wall musculature, and I see no ventral bowel containing hernia. On the sagittal images, this appears to be about 13.4 cm superior to the level of the umbilicus. This may represent an early subcutaneous abscess or phlegmon. Again, it is distinct from the anterior abdominal wall musculature. Some surrounding soft tissue stranding within the subcutaneous fat is seen. The liver reveals a prominent inferior portion of the right lobe which could be due to hepatomegaly or a Xu's lobe. The right lobe of the liver measures about 20.5 cm in height on the coronal images representing no change. No gross hepatic mass or intrahepatic biliary duct distention is seen. Assessment of the solid organs is limited on a non-IV contrast study. Surgical clips consistent with prior cholecystectomy are seen. The spleen appears moderately enlarged measuring about 16.7 cm in maximum craniocaudal dimension on coronal image #122. This is unchanged. No focal splenic mass is seen. I believe there is some atrophy and fatty changes within the pancreas. A distinct pancreatic mass or pancreatic duct distention is not seen. The adrenal glands appear of normal size and configuration. The right kidney measures about 11.8 cm in length on sagittal image #93, and the left kidney measures about 13.35 cm in length on sagittal image #159. No gross renal mass, renal calculi, or hydronephrosis is seen. Some atherosclerotic vascular calcification is seen within the abdominal aorta, origin of both renal arteries, and proximal right common iliac artery. No abdominal aortic aneurysm or abnormal retroperitoneal lymphadenopathy is seen. There is both abundant intraperitoneal and subcutaneous fat due to morbid obesity. No free intraperitoneal air is seen. The abdomen is protuberant. At least a portion of the appendix is seen. I see no evidence of acute appendicitis in the right lower quadrant. The uterus is anteflexed measuring 12.7 cm in length and 6.4 cm in AP depth on sagittal image #131. The uterus also has a mildly nodular contour and measures about 8.7 cm in width on coronal image #120. The possibility of uterine fibroids cannot be excluded. No other pelvic mass or enlarged pelvic lymph nodes are seen. I see no free intraperitoneal fluid. The urinary bladder is distended and appears grossly unremarkable. The skeleton reveals degenerative changes and spurring within the lower thoracic spine. No fracture or aggressive bone lesion is seen. At least moderate lower lumbar facet osteoarthritis is seen at L4-L5 and L5-S1. Some degenerative changes are also seen within the inferior aspect of both sacroiliac joints. There is mild narrowing of the left hip joint space indicating some mild osteoarthritis at this site. Impression: 1. Within the subcutaneous fat of the upper anterior abdominal wall just to the right of midline, I note an ill-defined soft tissue mass just posterior to an area of focal skin thickening measuring 4.2 cm x 3.0 cm x 3.3 cm. The margins are relatively ill-defined without definite central fluid or bubbles of soft tissue air. This could represent early formation of a subcutaneous soft tissue abscess or soft tissue phlegmon. It does not appear to involve the anterior abdominal wall musculature. There is no adjacent herniated bowel. 2. I see evidence of prior cholecystectomy. 3. Mild hepatomegaly versus prominent right hepatic lobe (i.e. Xu's lobe). The right lobe of the liver measures 20.6 cm in craniocaudal dimension which is essentially unchanged. 4. Moderate splenomegaly, no change from 02/08/2020. 5. Suspect fatty changes within a mildly atrophied pancreas. 6. Colonic fecal stasis without evidence of bowel obstruction, prominent anteflexed, lobular shaped uterus which may consist of uterine fibroids, and skeletal degenerative changes, as discussed above.
== END 2020-02-13 17:47 | disposition home or self-care (01) ==
LOC: ED 15:16
DX: L02.211 Cutaneous abscess of abdominal wall (principal); E66.01 Morbid (severe) obesity due to excess calories; G62.9 Polyneuropathy, unspecified
CPT/HCPCS: 10060; 36000; 36415; 74176; 80053; 83605; 85025; 96374; 96375; 99284; J1885; J2405; J3010

== ENCOUNTER 2020-03-20 15:24 | Emergency (ER) | payer OTHER ==
[2020-03-20 15:50] VITALS: O2SAT 97
[2020-03-20] MEDS ORDERED: TORAdol 30 mg Injection ONE (16:06)
[2020-03-20] MEDS: TORAdol 30 mg Injection IM ONE (16:07)
--- NOTE | 2020-03-20 16:29 | XRAY ---
Indication: Pain following fall. Comparison: None 2 view right femur demonstrates minimal hip/knee degenerative arthropathy and scattered vascular calcifications. No other bony, articular, or soft tissue abnormalities.
--- NOTE | 2020-03-20 16:29 | XRAY ---
Indication: Pain following fall. Comparison: None 2 view right hip demonstrates minimal degenerative arthropathy and scattered vascular calcifications. No other bony, articular, or soft tissue abnormalities.
--- NOTE | 2020-03-20 16:31 | XRAY ---
Indication: Pain following fall. Comparison: None 2 view right lower leg demonstrates minimal tricompartmental knee degenerative changes, small distal tibia healed fibrous cortical defect, and tiny anterior soft tissue calcified granulomas. No other bony, articular, or soft tissue abnormalities. Femur and foot reported separately.
--- NOTE | 2020-03-20 16:33 | XRAY ---
Indication: Pain following fall. Comparison: None 3 nonweightbearing views right foot demonstrates old 5th metatarsal shaft fracture, small lateral malleolus tip heterotopic ossification, tiny talonavicular spur, and tiny heel spurs. No other bony, articular, or soft tissue abnormalities.
--- NOTE | 2020-03-20 16:34 | ERPHSYRPT ---
- History of Present Illness Time Seen by Provider: 03/20/20 15:50 Source: patient Exam Limitations: no limitations Patient Subjective Stated Complaint: Pt states "I tripped and fell this morning and hurt my right hip, knee, and big toe." Triage Nursing Assessment: Pt presented alert and oriented X 3, skin wpd Pt ambulates with an upright steady gait, able to speak in clear full sentences pt in no apparent respiratory distress. pt right great toe distally had skin tear with bleeding controlled. Physician History: Patient is a 55-year-old female presents to our ED with complaints of right toe pain right knee pain and right hip pain. Patient was walking in her household when she kicked a chair with her toe. Patient fell. Injury occurred at 7 AM. Patient felt well but then started to develop ache. Patient called her primary care doctor who advised that she come in for x-rays. No other injuries. No BHT or LOC. No neck pain. Cervical spine cleared clinically. No associated chest pain. The fall was not associated with any sort of neuro cardiovascular symptomology. Pain described as an ache that is localized. No radiation. Pain worse with movement and palpation. Pain improved with rest. Grandson at bedside. They voiced no other complaints concerns at this time. Timing/Duration: today Severity: moderate Modifying Factors: Improves With: movement Associated Symptoms: denies symptoms Allergies/Adverse Reactions: adhesive tape Adverse Reaction (Intermediate, Verified 02/08/20 14:45) Home Medications: Lisinopril 20 mg [Zestril 20 MG] 40 mg PO DAILY 08/25/12 [History] Furosemide [Lasix] 40 mg PO DAILY PRN PRN 10/06/13 [History] Atorvastatin Calcium [Lipitor 20MG Tablet] 20 mg PO HS 06/11/17 [History] Gabapentin [Neurontin] 800 mg PO TID 06/11/17 [History] Insulin Glargine,Hum.rec.anlog [Basaglar Kwikpen U-100] 80 unit SQ HS 06/11/17 [History] Insulin Glulisine [Apidra Solostar] 40 unit SQ BID 06/11/17 [History] Potassium Chloride 10 Meq Tab* [Klor Con 10 MEQ] 10 meq PO DAILY PRN PRN 06/11/17 [History] Buprenorphine HCl [Belbuca] 150 mcg BC Q12H 07/31/17 [History] Omeprazole 20 MG [Prilosec 20 mg] 20 mg PO DAILY 07/31/17 [History] Tizanidine HCl 4 mg [Zanaflex 4 MG] 4 mg PO HS 07/31/17 [History] Hx Tetanus, Diphtheria Vaccination/Date Given: Yes Hx Influenza Vaccination/Date Given: No Hx Pneumococcal Vaccination/Date Given: No Immunizations Up to Date: Yes Travel Risk - International Travel Have you traveled outside of the country in past 3 weeks: No - Coronavirus Screening Are you exhibiting any of the following symptoms?: No Close contact with a COVID-19 positive Pt in past 14-21 Days: No - Review of Systems Constitutional: No Symptoms, No Fever, No Chills Eyes: No Symptoms Ears, Nose, & Throat: No Symptoms Respiratory: No Symptoms, No Cough, No Dyspnea Cardiac: No Symptoms, No Chest Pain, No Edema, No Syncope Abdominal/Gastrointestinal: No Symptoms, No Abdominal Pain, No Nausea, No Vomiting, No Diarrhea Genitourinary Symptoms: No Symptoms, No Dysuria Musculoskeletal: No Symptoms, No Back Pain, No Neck Pain Skin: No Symptoms, No Rash Neurological: No Symptoms, No Dizziness, No Focal Weakness, No Sensory Changes Psychological: No Symptoms Endocrine: No Symptoms Hematologic/Lymphatic: No Symptoms All Other Systems: Reviewed and Negative - Past Medical History Pertinent Past Medical History: Yes Neurological History: Peripheral Neuropathy, Other ENT History: No Pertinent History Cardiac History: Hypertension Respiratory History: CHF, Sleep Apnea Endocrine Medical History: Diabetes Type II Musculoskeletal History: Osteoarthritis GI Medical History: Pancreatitis, Other History: No Pertinent History Psycho-Social History: No Pertinent History Female Reproductive Disorders: No Pertinent History Other Medical History: BURSITIS TO BOTH SHOULDERS, NEUROPATHY THROUGHOUT HER BODY (INCLUDING STOMACH, BUTTOCKSk) - Past Surgical History Past Surgical History: Yes Neuro Surgical History: No Pertinent History Cardiac: No Pertinent History Respiratory: No Pertinent History Gastrointestinal: Other Genitourinary: No Pertinent History Musculoskeletal: No Pertinent History Female Surgical History: Tubal Ligation, Other Other Surgical History: d & c, (rectal surgery x3, cyst removed from rectum). cyst removed from pancreas - Social History Smoking Status: Never smoker Exposure to second hand smoke: Yes Drug Use: none Patient Lives Alone: No Significant Family History: no pertinent family hx - Nursing Vital Signs Nursing Vital Signs: Initial Vital Signs Temperature 98.2 F 03/20/20 15:43 Pulse Rate 79 03/20/20 15:43 Respiratory Rate 20 03/20/20 15:43 Blood Pressure 126/69 03/20/20 15:43 O2 Sat by Pulse Oximetry 97 03/20/20 15:43 Pain Scale Pain Intensity 6 - Physical Exam General Appearance: no apparent distress, alert Eye Exam: PERRL/EOMI, eyes nml inspection Ears, Nose, Throat Exam: normal ENT inspection, TMs normal, pharynx normal, moist mucous membranes Neck Exam: normal inspection, non-tender, supple, full range of motion Respiratory Exam: normal breath sounds, lungs clear, No respiratory distress Cardiovascular Exam: regular rate/rhythm, normal heart sounds, normal peripheral pulses Gastrointestinal/Abdomen Exam: soft, normal bowel sounds, No tenderness, No mass Back Exam: normal inspection, normal range of motion, No CVA tenderness, No vertebral tenderness Extremity Exam: normal inspection, normal range of motion, pelvis stable, swelling (Swelling of the distal tip of the right great toe. Right great toe nail plate was subluxed with patient reduced it. The plate is in good position at this point.), other (Tenderness palpation at the lateral aspect of the right hip anterior knee and right great toe. Ecchymosis to the right anterior knee and great toe. Overlying soft tissue intact. No open or draining lesions. Compartments are soft. Cap refill less than 2 seconds. Active motion of foot ankle and ) Neurologic Exam: alert, oriented x 3, cooperative, normal mood/affect, nml cerebellar function, nml station & gait, sensation nml, No motor deficits Skin Exam: normal color, warm, dry, No rash Lymphatic Exam: No adenopathy SpO2 Interpretation: normal SpO2: 97 O2 Delivery: Room Air - Course Nursing assessment & vital signs reviewed: Yes - Radiology Exams Foot X-ray Interpretation: Teleradiologist Report (Heel spur no fractures or dislocations) Lower Leg X-ray Interpretation: Teleradiologist Report (Knee arthritis no fractures or dislocations) Femur X-ray Interpretation: Teleradiologist Report (No fractures or dislocations. No hip fractures) Ordered Tests: Active Orders 24 hr Category Date Time Status FEMUR Stat Exams 03/20/20 15:42 Completed FOOT (MINIMUM 3 VIEWS) Stat Exams 03/20/20 15:43 Completed HIP UNI (2V) INCL PEL IF DONE Stat Exams 03/20/20 15:42 Completed LOWER LEG Stat Exams 03/20/20 15:42 Completed Medication Summary Discontinued Medications Generic Name Dose Route Start Last Admin Trade Name Lori PRN Reason Stop Dose Admin Ketorolac Tromethamine 30 mg 03/20/20 16:04 03/20/20 16:07 Toradol 30 Mg Injection IM 03/20/20 16:05 30 mg STAT ONE Administration Ketorolac Tromethamine Confirm 03/20/20 16:06 Toradol 30 Mg Injection Administered 03/20/20 16:07 Dose 30 mg .ROUTE .STK-MED ONE Morphine Sulfate 2 mg 03/20/20 16:38 Morphine Sulfate 2 Mg Inj IV 03/20/20 16:39 STAT ONE - Progress Progress: improved Progress Note: 03/20/20 16:44 Patient reassessed. Pain improved. No fractures or dislocations. Will discharge home. Patient will follow up with her primary care doctor within 48 hours for reevaluation. Patient voiced no other complaints or concerns at this time. Counseled pt/family regarding: diagnosis, need for follow-up, rad results - Departure Departure Disposition: Home Clinical Impression: Avulsion of nail plate, Toe contusion, Arthritis of knee, Contusion, hip Condition: Stable Critical Care Time: No Referrals: FELIPE LEDESMA [Primary Care Provider] - Additional Instructions: Discharge/Care Plan CLOTILDE ROLLINS was seen on 03/20/20 in the Emergency Room. The patient was counseled regarding Diagnosis,Lab results, Imaging studies, need for follow up and when to return to the Emergency Room. Prescriptions given: Discharge Note I have spoken with the patient and/or caregivers. I have explained the patient's condition, diagnosis and treatment plan based on the information available to me at this time. I have answered the patient's and/or caregiver's questions and addressed any concerns. The patient and/or caregivers have as good understanding of the patient's diagnosis, condition and treatment plan as can be expected at this point. The vital signs have been stable. The patient's condition is stable and appropriate for discharge from the emergency department. The patient will pursue further outpatient evaluation with the primary care physician or other designated or consulting physician as outlined in the discharge instructions. The patient and/or caregivers are agreeable to this plan of care and follow-up instructions have been explained in detail. The patient and/or caregivers have received these instruction. The patient/and or caregivers are aware that any significant change in condition or worsening of symptoms should prompt an immediate return to this or the closest emergency department or call 911.
[2020-03-20] MEDS ORDERED: MORPHINE SULFATE 2 MG INJ ONE (16:46)
[2020-03-20] MEDS: MORPHINE SULFATE 2 MG INJ IV ONE (16:48)
[2020-03-20 17:03] VITALS: BP 130/68; PULSE 76
== END 2020-03-20 17:27 | disposition home or self-care (01) ==
LOC: ED 15:24
DX: S91.201A Unspecified open wound of right great toe with damage to nail, initial encounter (principal); S90.111A Contusion of right great toe without damage to nail, initial encounter; S70.01XA Contusion of right hip, initial encounter; W01.10XA Fall on same level from slipping, tripping and stumbling with subsequent striking against unspecified object, initial encounter; Y93.9 Activity, unspecified; Y92.9 Unspecified place or not applicable; M17.10 Unilateral primary osteoarthritis, unspecified knee; M25.561 Pain in right knee; R58 Hemorrhage, not elsewhere classified
CPT/HCPCS: 73502; 73552; 73590; 73630; 96372; 99284; J1885; J2270

== ENCOUNTER 2020-07-22 11:14 | Observation (INO) | payer OTHER ==
[2020-07-22] MEDS ORDERED: MORPHINE SULFATE 4 MG INJ IV ONE (11:44)
[2020-07-22] MEDS ORDERED: Sodium Chloride 0.9% 1000 ML 1,000 ML IV STA (11:44)
[2020-07-22] MEDS ORDERED: MORPHINE SULFATE 4 MG INJ ONE (11:48)
[2020-07-22] MEDS ORDERED: Sodium Chloride 0.9% 1000 ML 1,000 ML ONE (11:48)
[2020-07-22 11:55] LABS: Absolute Neutrophil Ct (ANC) 3.47 (1.4-6.9); BASOPHIL % 0.6 % (0.0-0.4); Basophil (Absolute #) 0.03 (0-0.4); Eosinophil % 1.7 % (0.00-5.0); Eosinophil (Absolute #) 0.09 (0-0.5); Hematocrit 43.1 % (35-47); Hemoglobin 13.4 gm/dl (12.0-16.0); Lymphocyte (Absolute #) 1.11 (1.0-4.6); Lymphocytes % 21.2 % (24.0-44.0); Mean Cell Volume 90.7 fl (78-100); Mean Corpuscular Hemoglobin 28.2 pg (26-32); Mean Corpuscular Hgb Concent. 31.1 g/dl (32-36); Mean Platelet Volume 10.9 fl (7.5-11.0); Monocyte (Absolute #) 0.53 (0.0-1.3); Monocytes % 10.1 % (0.0-12.0); Neutrophil % 66.4 % (36.0-66.0); Platelet Count 96 K/mm3 (150-450); Red Blood Count 4.75 M/mm3 (4.1-5.4); Red Cell Distribution Width 14.9 % (11.5-14.0); White Blood Count 5.2 K/mm3 (4.0-10.5)
[2020-07-22 12:00] LABS: ALBUMIN 3.7 g/dL (3.5-5.0); ALKALINE PHOSPHATASE 107 U/L (38-126); ANION GAP 11.4 MEQ/L (5-15); BLOOD UREA NITROGEN 20 mg/dL (7-17); CHLORIDE 100 mmol/L (98-107); Calcium 9.9 mg/dL (8.4-10.2); Carbon Dioxide 33 mmol/L (22-30); Creatinine 1 0.86 mg/dL (0.52-1.04); EST GLOMERULAR FILTRATION RATE > 60.0 ML/MIN; Glucose 264 mg/dL (74-106); Potassium 4.2 mmol/L (3.5-5.1); SGOT/AST 44 U/L (14-36); SGPT/ALT 24 U/L (0-35); SODIUM 140 mmol/L (137-145); Total Protein 7.7 g/dL (6.3-8.2)
[2020-07-22 12:08] LABS: Appearance CLOUDY (CLEAR); Bacteria FEW /HPF (NEGATIVE); Bilirubin SMALL (NEGATIVE); Blood NEGATIVE Ery/ul (0-5); Epithelial Cells FEW /HPF (FEW); Glucose >=500 mg/dL (NEGATIVE); Ketones NEGATIVE (NEGATIVE); Leukocyte Esterase MODERATE (NEGATIVE); Mucus MANY /HPF (NEGATIVE); Nitrite NEGATIVE (NEGATIVE); Protein,Urine Dip 100 (Negative); Specific Gravity 1.026 (1.005-1.025); Urobilinogen 4 mg/dL (0-1); WBC >100 /HPF (0-5)
[2020-07-22 12:24] LABS: Slide Review 1 YES
--- NOTE | 2020-07-22 12:25 | ERPHSYRPT ---
- History of Present Illness Time Seen by Provider: 07/22/20 11:16 Source: patient, EMS Exam Limitations: no limitations Patient Subjective Stated Complaint: pt here for 3 falls in the last 3 days, she co increase weakness, uses a walker at home, pain to tailbone and knees Triage Nursing Assessment: pt arrived per ambulance alert, skin w/d/p. has edema to lower legs, was able to transfer from cot to bed with asssist of one . face mask applied Physician History: 55 years old female with history of hypertension, hyperlipidemia, diabetes mellitus, morbid obesity, baseline issues with balance using walker for ambulati on presented in the ER with chief complaint of generalized weakness fatigue for the last 2 to 3 days and multiple falls where her knees gave away and she has hit her hips and knee against the floor. Denies hitting her head. Denies any dizziness or lightheadedness before or after the fall. No numbness tingling or focal weakness but weakness all over. Denies any abdominal pain, chest pain palpitations or shortness of breath before or after the fall. She fell last time yesterday on her tailbone and is making it difficult to ambulate now because of increasing sharp shooting moderate to severe pain with activity and partial relief with lying on the back. Denies any urinary symptoms. No recent fever chills or cough reported. Timing/Duration: day(s) (2), gradual onset, worse Severity: moderate Associated Symptoms: weakness, No nausea, No vomiting, No abdominal pain, No shortness of breath, No heartburn, No diaphoresis, No cough, No chest pain, No loss of appetite, No malaise, No rash, No syncope, No seizure Allergies/Adverse Reactions: adhesive tape Adverse Reaction (Intermediate, Verified 07/22/20 11:27) Home Medications: Lisinopril 20 mg [Zestril 20 MG] 40 mg PO DAILY 08/25/12 [History] Furosemide [Lasix] 40 mg PO DAILY PRN PRN 10/06/13 [History] Atorvastatin Calcium [Lipitor 20MG Tablet] 20 mg PO HS 06/11/17 [History] Gabapentin [Neurontin] 600 mg PO TID 06/11/17 [History] Insulin Glargine,Hum.rec.anlog [Basaglar Kwikpen U-100] 80 unit SQ HS 06/11/17 [History] Potassium Chloride 10 Meq Tab* [Klor Con 10 MEQ] 20 meq PO DAILY PRN PRN 06/11/17 [History] Buprenorphine HCl [Belbuca] 600 mcg BC Q12H 07/31/17 [History] Omeprazole 20 MG [Prilosec 20 mg] 20 mg PO DAILY 07/31/17 [History] Insulin Lispro [Admelog Solostar] 1 unit SQ UD 07/22/20 [History] Hx Tetanus, Diphtheria Vaccination/Date Given: Yes Hx Influenza Vaccination/Date Given: No Hx Pneumococcal Vaccination/Date Given: No Immunizations Up to Date: Yes Travel Risk - International Travel Have you traveled outside of the country in past 3 weeks: No - Coronavirus Screening Are you exhibiting any of the following symptoms?: No Close contact with a COVID-19 positive Pt in past 14-21 Days: No - Review of Systems Constitutional: Weakness Eyes: No Symptoms Ears, Nose, & Throat: No Symptoms Respiratory: No Symptoms Cardiac: No Symptoms Abdominal/Gastrointestinal: No Symptoms Genitourinary Symptoms: No Symptoms Musculoskeletal: Back Pain, Fall, Injury Skin: No Symptoms Psychological: No Symptoms Endocrine: No Symptoms Hematologic/Lymphatic: No Symptoms Immunological/Allergic: No Symptoms - Past Medical History Pertinent Past Medical History: Yes Neurological History: Peripheral Neuropathy, Other ENT History: No Pertinent History Cardiac History: Hypertension Respiratory History: CHF, Sleep Apnea Endocrine Medical History: Diabetes Type II Musculoskeletal History: Osteoarthritis GI Medical History: Pancreatitis, Other History: No Pertinent History Psycho-Social History: No Pertinent History Female Reproductive Disorders: No Pertinent History Other Medical History: BURSITIS TO BOTH SHOULDERS, NEUROPATHY THROUGHOUT HER BODY (INCLUDING STOMACH, BUTTOCKSk) - Past Surgical History Past Surgical History: Yes Neuro Surgical History: No Pertinent History Cardiac: No Pertinent History Respiratory: No Pertinent History Gastrointestinal: Other Genitourinary: No Pertinent History Musculoskeletal: No Pertinent History Female Surgical History: Tubal Ligation, Other Other Surgical History: d & c, (rectal surgery x3, cyst removed from rectum). cyst removed from pancreas - Social History Smoking Status: Never smoker Exposure to second hand smoke: Yes Drug Use: none Patient Lives Alone: No Significant Family History: no pertinent family hx - Female History Hx Last Menstrual Period: post - Nursing Vital Signs Nursing Vital Signs: Initial Vital Signs Temperature 98.1 F 07/22/20 11:14 Pulse Rate 80 07/22/20 11:14 Respiratory Rate 18 07/22/20 11:14 Blood Pressure 150/50 07/22/20 11:14 O2 Sat by Pulse Oximetry 97 07/22/20 11:14 Pain Scale Pain Intensity 7 - Physical Exam General Appearance: no apparent distress, anxiety Eye Exam: PERRL/EOMI, eyes nml inspection Ears, Nose, Throat Exam: normal ENT inspection, TMs normal, pharynx normal, moist mucous membranes Neck Exam: normal inspection, non-tender, supple, full range of motion Respiratory Exam: normal breath sounds, lungs clear Cardiovascular Exam: regular rate/rhythm, normal heart sounds Gastrointestinal/Abdomen Exam: soft, normal bowel sounds, No tenderness Back Exam: normal inspection, decreased range of motion, muscle spasm (Paraspinal muscles), point tenderness (Coccyx area), No vertebral tenderness Extremity Exam: normal range of motion, tenderness (Superficial abrasion and mild tenderness left knee but no obvious swelling), other Neurologic Exam: alert, oriented x 3, cooperative, clinical geneticist II-XII nml as tested, normal mood/affect, nml cerebellar function, sensation nml, No disoriented, No confusion, No agitation Skin Exam: normal color SpO2 Interpretation: normal SpO2: 97 O2 Delivery: Room Air - Course EKG Interpreted by Me: RATE (77), Sinus Rhythm, NORMAL AXIS, NORMAL INTERVALS, Non-specific ST Changes, Other (Nonspecific T wave changes) Ordered Tests: Active Orders 24 hr Category Date Time Status Nurse Ob STAT Care 07/22/20 11:43 Active EKG-ER Only STAT Care 07/22/20 11:44 Active IV Insertion STAT Care 07/22/20 11:44 Active ABDOMEN AND PELVIS W/0 CONTRAS [CT] Stat Exams 07/22/20 12:27 Taken CHEST 1 VIEW (PORTABLE) Stat Exams 07/22/20 11:45 Taken BLOOD CULTURE Stat Lab 07/22/20 12:05 Received CBC W DIFF Stat Lab 07/22/20 11:30 Completed CK (IN-HOUSE) [CK-Creatinine Phosphokinase] Stat Lab 07/22/20 11:30 Completed CMP Stat Lab 07/22/20 11:30 Completed CULTURE,URINE Stat Lab 07/22/20 11:47 Received Lactic Acid Stat Lab 07/22/20 11:44 Completed MAGNESIUM Stat Lab 07/22/20 11:30 Completed TROPONIN Q3H Lab 07/22/20 11:30 Completed TROPONIN Q3H Lab 07/22/20 14:45 Ordered TROPONIN Q3H Lab 07/22/20 17:45 Ordered TROPONIN Q3H Lab 07/22/20 20:45 Ordered TROPONIN Q3H Lab 07/22/20 23:45 Ordered TSH [TSH, 3RD Generation] Stat Lab 07/22/20 11:30 Completed UA W/RFX UR CULTURE Stat Lab 07/22/20 11:47 Completed Transfer Order Routine Transfer 07/22/20 Ordered Medication Summary Generic Name Dose Route Start Last Admin Trade Name Freq PRN Reason Stop Dose Admin Sodium Chloride 1,000 mls @ 500 mls/hr 07/22/20 11:44 07/22/20 11:51 Sodium Chloride 0.9% 1000 Ml IV 07/22/20 13:43 500 mls/hr .Q2H STA Administration Ceftriaxone Sodium/Dextrose 1 g in 50 mls @ 100 mls/hr 07/22/20 13:08 07/22/20 13:10 Rocephin 1 Gm-D5w 50 Ml Bag IV 07/22/20 13:37 100 ml/hr STAT STA 100 mls/hr Administration Discontinued Medications Generic Name Dose Route Start Last Admin Trade Name Freq PRN Reason Stop Dose Admin Sodium Chloride Confirm 07/22/20 11:48 Sodium Chloride 0.9% 1000 Ml Administered 07/22/20 11:49 Dose 1,000 mls @ ud .ROUTE .STK-MED ONE Ceftriaxone Sodium/Dextrose Confirm 07/22/20 13:08 Rocephin 1 Gm-D5w 50 Ml Bag Administered 07/22/20 13:09 Dose 1 g in 50 mls @ ud IV .STK-MED ONE Morphine Sulfate 4 mg 07/22/20 11:44 07/22/20 11:51 Morphine Sulfate 4 Mg Inj IV 07/22/20 11:45 4 mg STAT ONE Administration Morphine Sulfate Confirm 07/22/20 11:48 Morphine Sulfate 4 Mg Inj Administered 07/22/20 11:49 Dose 4 mg .ROUTE .STK-MED ONE Lab/Rad Data: Laboratory Result Diagrams 07/22/20 11:30 07/22/20 11:30 Laboratory Results 07/22/20 07/22/20 07/22/20 Range/Units 11:47 11:44 11:30 WBC (4.0-10.5) K/mm3 RBC (4.1-5.4) M/mm3 Hgb (12.0-16.0) gm/dl Hct (35-47) % MCV (78-100) fl MCH (26-32) pg MCHC (32-36) g/dl RDW (11.5-14.0) % Plt Count (150-450) K/mm3 MPV (7.5-11.0) fl Gran % (36.0-66.0) % Eos # (Auto) (0-0.5) Absolute Lymphs (auto) (1.0-4.6) Absolute Monos (auto) (0.0-1.3) Lymphocytes % (24.0-44.0) % Monocytes % (0.0-12.0) % Eosinophils % (0.00-5.0) % Basophils % (0.0-0.4) % Absolute Granulocytes (1.4-6.9) Basophils # (0-0.4) Sodium (137-145) mmol/L Potassium (3.5-5.1) mmol/L Chloride (98-107) mmol/L Carbon Dioxide (22-30) mmol/L Anion Gap (5-15) MEQ/L BUN (7-17) mg/dL Creatinine (0.52-1.04) mg/dL Estimated GFR ML/MIN Glucose (74-106) mg/dL Lactic Acid 2.1 H (0.4-2.0) Calcium (8.4-10.2) mg/dL Magnesium 1.5 L (1.6-2.3) mg/dL Total Bilirubin (0.2-1.3) mg/dL AST (14-36) U/L ALT (0-35) U/L Alkaline Phosphatase (38-126) U/L Creatine Kinase (30-135) U/L Troponin I (0.000-0.034) ng/mL Serum Total Protein (6.3-8.2) g/dL Albumin (3.5-5.0) g/dL TSH 3rd Generation (0.47-4.68) mIU/L Urine Color SHIRLEY (YELLOW) Urine Appearance CLOUDY (CLEAR) Urine pH 5.0 (5-6) Ur Specific Edwards 1.026 (1.005-1.025) Urine Protein 100 (Negative) Urine Ketones NEGATIVE (NEGATIVE) Urine Blood NEGATIVE (0-5) Harvey/ul Urine Nitrite NEGATIVE (NEGATIVE) Urine Bilirubin SMALL (NEGATIVE) Urine Urobilinogen 4 (0-1) mg/dL Ur Leukocyte Esterase MODERATE (NEGATIVE) Urine WBC (Auto) >100 (0-5) /HPF Urine RBC (Auto) 3-5 (0-2) /HPF U Hyaline Cast (Auto) 11-25 (0-2) /LPF U Epithel Cells (Auto) FEW (FEW) /HPF Urine Bacteria (Auto) FEW (NEGATIVE) /HPF Urine Mucus (Auto) MANY (NEGATIVE) /HPF Urine Culture Reflexed YES (NO) Urine Glucose >=500 (NEGATIVE) mg/dL Slides for Path Review 07/22/20 07/22/20 07/22/20 Range/Units 11:30 11:30 11:30 WBC (4.0-10.5) K/mm3 RBC (4.1-5.4) M/mm3 Hgb (12.0-16.0) gm/dl Hct (35-47) % MCV (78-100) fl MCH (26-32) pg MCHC (32-36) g/dl RDW (11.5-14.0) % Plt Count (150-450) K/mm3 MPV (7.5-11.0) fl Gran % (36.0-66.0) % Eos # (Auto) (0-0.5) Absolute Lymphs (auto) (1.0-4.6) Absolute Monos (auto) (0.0-1.3) Lymphocytes % (24.0-44.0) % Monocytes % (0.0-12.0) % Eosinophils % (0.00-5.0) % Basophils % (0.0-0.4) % Absolute Granulocytes (1.4-6.9) Basophils # (0-0.4) Sodium 140 (137-145) mmol/L Potassium 4.2 (3.5-5.1) mmol/L Chloride 100 (98-107) mmol/L Carbon Dioxide 33 H (22-30) mmol/L Anion Gap 11.4 (5-15) MEQ/L BUN 20 H (7-17) mg/dL Creatinine 0.86 (0.52-1.04) mg/dL Estimated GFR > 60.0 ML/MIN Glucose 264 H (74-106) mg/dL Lactic Acid (0.4-2.0) Calcium 9.9 (8.4-10.2) mg/dL Magnesium (1.6-2.3) mg/dL Total Bilirubin 0.50 (0.2-1.3) mg/dL AST 44 H (14-36) U/L ALT 24 (0-35) U/L Alkaline Phosphatase 107 (38-126) U/L Creatine Kinase 40 (30-135) U/L Troponin I < 0.012 (0.000-0.034) ng/mL Serum Total Protein 7.7 (6.3-8.2) g/dL Albumin 3.7 (3.5-5.0) g/dL TSH 3rd Generation 3.120 (0.47-4.68) mIU/L Urine Color (YELLOW) Urine Appearance (CLEAR) Urine pH (5-6) Ur Specific Edwards (1.005-1.025) Urine Protein (Negative) Urine Ketones (NEGATIVE) Urine Blood (0-5) Harvey/ul Urine Nitrite (NEGATIVE) Urine Bilirubin (NEGATIVE) Urine Urobilinogen (0-1) mg/dL Ur Leukocyte Esterase (NEGATIVE) Urine WBC (Auto) (0-5) /HPF Urine RBC (Auto) (0-2) /HPF U Hyaline Cast (Auto) (0-2) /LPF U Epithel Cells (Auto) (FEW) /HPF Urine Bacteria (Auto) (NEGATIVE) /HPF Urine Mucus (Auto) (NEGATIVE) /HPF Urine Culture Reflexed (NO) Urine Glucose (NEGATIVE) mg/dL Slides for Path Review 07/22/20 Range/Units 11:30 WBC 5.2 (4.0-10.5) K/mm3 RBC 4.75 (4.1-5.4) M/mm3 Hgb 13.4 (12.0-16.0) gm/dl Hct 43.1 (35-47) % MCV 90.7 (78-100) fl MCH 28.2 (26-32) pg MCHC 31.1 L (32-36) g/dl RDW 14.9 H (11.5-14.0) % Plt Count 96 L (150-450) K/mm3 MPV 10.9 (7.5-11.0) fl Gran % 66.4 H (36.0-66.0) % Eos # (Auto) 0.09 (0-0.5) Absolute Lymphs (auto) 1.11 (1.0-4.6) Absolute Monos (auto) 0.53 (0.0-1.3) Lymphocytes % 21.2 L (24.0-44.0) % Monocytes % 10.1 (0.0-12.0) % Eosinophils % 1.7 (0.00-5.0) % Basophils % 0.6 (0.0-0.4) % Absolute Granulocytes 3.47 (1.4-6.9) Basophils # 0.03 (0-0.4) Sodium (137-145) mmol/L Potassium (3.5-5.1) mmol/L Chloride (98-107) mmol/L Carbon Dioxide (22-30) mmol/L Anion Gap (5-15) MEQ/L BUN (7-17) mg/dL Creatinine (0.52-1.04) mg/dL Estimated GFR ML/MIN Glucose (74-106) mg/dL Lactic Acid (0.4-2.0) Calcium (8.4-10.2) mg/dL Magnesium (1.6-2.3) mg/dL Total Bilirubin (0.2-1.3) mg/dL AST (14-36) U/L ALT (0-35) U/L Alkaline Phosphatase (38-126) U/L Creatine Kinase (30-135) U/L Troponin I (0.000-0.034) ng/mL Serum Total Protein (6.3-8.2) g/dL Albumin (3.5-5.0) g/dL TSH 3rd Generation (0.47-4.68) mIU/L Urine Color (YELLOW) Urine Appearance (CLEAR) Urine pH (5-6) Ur Specific Edwards (1.005-1.025) Urine Protein (Negative) Urine Ketones (NEGATIVE) Urine Blood (0-5) Harvey/ul Urine Nitrite (NEGATIVE) Urine Bilirubin (NEGATIVE) Urine Urobilinogen (0-1) mg/dL Ur Leukocyte Esterase (NEGATIVE) Urine WBC (Auto) (0-5) /HPF Urine RBC (Auto) (0-2) /HPF U Hyaline Cast (Auto) (0-2) /LPF U Epithel Cells (Auto) (FEW) /HPF Urine Bacteria (Auto) (NEGATIVE) /HPF Urine Mucus (Auto) (NEGATIVE) /HPF Urine Culture Reflexed (NO) Urine Glucose (NEGATIVE) mg/dL Slides for Path Review YES - Progress Progress: improved, pain not gone completely, re-examined Progress Note: 07/22/20 13:27 55 years old is evaluated for generalized weakness with recurrent falls with resultant tailbone pain. Patient is given us 500 cc fluid bolus along with pain medications, on reevaluation her pain is much improved. EKG showed sinus rhythm with no acute ST elevation and has negative initial troponins. Chest x-ray I did not appreciate any focal consolidation/airspace disease process reviewed by me, official read is pending. Has normal white count, chemistry profile showed hypomagnesium anemia and is getting replacement. She does have UTI and is started on Rocephin. This could be the reason for her generalized weakness. I have obtained CT abdomen pelvis without contrast which did not show any acute osseous process but does have cirrhosis and some splenomegaly but no ascites. No other acute findings. I believe patient would benefit with IV antibiotics and some PT OT, discussed with Dr. Frye and patient is admitted. Discussed with : Guillermo Will see patient in: hospital (observation) Counseled pt/family regarding: lab results, diagnosis, rad results - Departure Departure Disposition: Observation Clinical Impression: Generalized weakness, Acute UTI, Recurrent falls, Hypomagnesemia Condition: Stable Critical Care Time: No Referrals: FELIPE LEDESMA [Primary Care Provider] -
[2020-07-22 12:52] LABS: TSH, 3RD Generation 3.12 mIU/L (0.47-4.68)
[2020-07-22] MEDS ORDERED: ROCEPHIN 1 Gm-D5w 50 ml Bag** 1 G/50 ML IVPB IV STA (13:08)
[2020-07-22] MEDS ORDERED: ROCEPHIN 1 Gm-D5w 50 ml Bag** 1 G/50 ML IVPB IV ONE (13:08)
[2020-07-22] MEDS ORDERED: TYLENOL 325 MG PO PRN (13:55)
[2020-07-22] MEDS ORDERED: Magnesium 1 Gm / 100 Ml D5W*** 100 ML IV ONE (13:55)
[2020-07-22] MEDS ORDERED: DUONEB 0.5-3 MG/3 ml Neb IH PRN (13:55)
[2020-07-22] MEDS: ROCEPHIN 1 Gm-D5w 50 ml Bag** 1 G/50 ML IVPB IV SCH ×2 (14:45→14:47)
[2020-07-22] MEDS ORDERED: PROTONIX 40 MG IV IV ONE (14:46)
[2020-07-22] MEDS ORDERED: Klor Con 10 MEQ PO PRN (15:13)
[2020-07-22] MEDS ORDERED: Lasix 40 MG PO PRN (15:13)
[2020-07-22] MEDS ORDERED: INSULIN LISPRO 1 UNIT SQ SCH (15:15)
[2020-07-22] MEDS: MORPHINE SULFATE 4 MG INJ IV PRN ×2 (15:25→20:15)
[2020-07-22] MEDS: HUMALOG SQ PRN ×2 (16:03→21:30)
[2020-07-22] MEDS: NEURONTIN 300 MG PO SCH ×2 (16:49→21:30)
[2020-07-22] MEDS: Zestril 20 MG PO SCH (16:49)
[2020-07-22] MEDS: Zofran 4 MG/2 ML VIAL IV PRN (19:02)
--- NOTE | 2020-07-22 19:05 | XRAY ---
Indication: Low back pain. Several falls. Multiple contiguous axial images obtained through the abdomen and pelvis without contrast. Comparison: February 13, 2020. Exam limited due to patient body habitus. Lung bases are clear. Heart is not enlarged. Noncontrasted stomach and bowel loops are nonobstructed. No free fluid/air. Again cirrhotic liver, cholecystectomy, 18 cm splenomegaly, left renal cysts, and uterine leiomyomatosis. Remaining liver, pancreas, spleen, adrenal glands, kidneys, ureters, bladder, and uterus appear unremarkable for noncontrast exam. Minimal aortoiliac calcifications. Osseous structures intact again with mild strandy changes throughout the thoracolumbar spine. Impression: 1. Stable cirrhotic liver, splenomegaly, left renal cysts, and uterine leiomyomatosis. 2. Remaining CT abdomen/pelvis without contrast exam is negative. Comment: Preliminary interpretation was made by [facility]. No critical discrepancy.
--- NOTE | 2020-07-22 19:05 | XRAY ---
Indication: Status post fall. Comparison: July 31, 2017. Portable chest again limited due to patient body habitus. Heart remains borderline enlarged. Lungs inflated and clear. Bony thorax grossly intact. Impression: Continued nonacute limited chest.
[2020-07-22] MEDS: ZOCOR 20MG PO SCH (21:30)
[2020-07-22] MEDS: Lantus Insulin SQ SCH (21:30)
[2020-07-22] MEDS ORDERED: INSULIN GLARGINE HUM REC ANLOG 80 UNIT SQ SCH (22:00)
[2020-07-22] MEDS ORDERED: NON-FORMULARY ITEM (Gabapentin [Neurontin] 600 MG) PO SCH (22:00)
[2020-07-22] MEDS ORDERED: NON-FORMULARY ITEM (Atorvastatin Calcium 20 MG) PO SCH (22:00)
[2020-07-23] MEDS: MORPHINE SULFATE 4 MG INJ IV PRN ×5 (01:26→21:04)
[2020-07-23] MEDS: Zofran 4 MG/2 ML VIAL IV PRN ×2 (01:34→09:01)
[2020-07-23 05:08] LABS: Absolute Neutrophil Ct (ANC) 2.89 (1.4-6.9); BASOPHIL % 0.4 % (0.0-0.4); Basophil (Absolute #) 0.02 (0-0.4); Eosinophil % 3.5 % (0.00-5.0); Eosinophil (Absolute #) 0.17 (0-0.5); Hematocrit 39.4 % (35-47); Lymphocyte (Absolute #) 1.28 (1.0-4.6); Lymphocytes % 26.3 % (24.0-44.0); Mean Cell Volume 92.3 fl (78-100); Mean Corpuscular Hemoglobin 28.1 pg (26-32); Mean Corpuscular Hgb Concent. 30.5 g/dl (32-36); Mean Platelet Volume 11.7 fl (7.5-11.0); Monocyte (Absolute #) 0.51 (0.0-1.3); Monocytes % 10.5 % (0.0-12.0); Neutrophil % 59.3 % (36.0-66.0); Platelet Count 101 K/mm3 (150-450); Red Blood Count 4.27 M/mm3 (4.1-5.4); Red Cell Distribution Width 14.9 % (11.5-14.0); White Blood Count 4.9 K/mm3 (4.0-10.5)
[2020-07-23 05:13] LABS: ALBUMIN 3.1 g/dL (3.5-5.0); ALKALINE PHOSPHATASE 89 U/L (38-126); BLOOD UREA NITROGEN 23 mg/dL (7-17); CHLORIDE 104 mmol/L (98-107); Carbon Dioxide 30 mmol/L (22-30); Creatinine 1 0.81 mg/dL (0.52-1.04); EST GLOMERULAR FILTRATION RATE > 60.0 ML/MIN; Glucose 189 mg/dL (74-106); Potassium 3.6 mmol/L (3.5-5.1); SGOT/AST 39 U/L (14-36); SGPT/ALT 21 U/L (0-35); SODIUM 140 mmol/L (137-145); Total Protein 6.6 g/dL (6.3-8.2)
--- NOTE | 2020-07-23 08:43 | PCM.HP ---
History of Present Illness - Chief Complaint Chief Complaint: Generalized Weakness History of Present Illness: is a 55 year old female pt with morbid obesity, OA, DM, GERD, and gastroparesis who was admitted through ER with UTI yesterday after falling x 3. Also c/o weakness and "jerking." Denies fever. Did have intermittent dysuria for the past 1 week. Some vomiting and diarrhea a few days ago which resolved. - Review of Systems Constitutional: Weakness Cardiac: Edema Abdominal/Gastrointestinal: Vomiting, Diarrhea Genitourinary Symptoms: Dysuria Musculoskeletal: Fall Psychological: No Suicidal Ideations All Other Systems: Reviewed and Negative Medications & Allergies Home Medications: Home Medication List Lisinopril 20 mg [Zestril 20 MG] 40 mg PO DAILY 08/25/12 [History Confirmed 07/22/20] Furosemide [Lasix] 40 mg PO DAILY PRN PRN 10/06/13 [History Confirmed 07/22/20] Atorvastatin Calcium [Lipitor 20MG Tablet] 20 mg PO HS 06/11/17 [History Confirmed 07/22/20] Gabapentin [Neurontin] 600 mg PO TID 06/11/17 [History Confirmed 07/22/20] Insulin Glargine,Hum.rec.anlog [Basaglar Kwikpen U-100] 80 unit SQ HS 06/11/17 [History Confirmed 07/22/20] Potassium Chloride 10 Meq Tab* [Klor Con 10 MEQ] 20 meq PO DAILY PRN PRN 06/11/17 [History Confirmed 07/22/20] Buprenorphine HCl [Belbuca] 600 mcg BC Q12H 07/31/17 [History Confirmed 07/22/20] Omeprazole 20 MG [Prilosec 20 mg] 20 mg PO DAILY 07/31/17 [History Confirmed 07/22/20] Hydrocodone Bit/Acetaminophen [[place] 10-325 Tablet] 1 each PO Q4H PRN PRN #6 tablet 02/13/20 [Rx Confirmed 07/22/20] Insulin Lispro [Admelog Solostar] 1 unit SQ UD 07/22/20 [History Confirmed 07/22/20] Allergies/Adverse Reactions: Allergies Allergy/AdvReac Type Severity Reaction Status Date / Time adhesive tape AdvReac Intermediate Verified 07/22/20 11:27 - Past Medical History Past Medical History: Yes Neurological History: No Pertinent History ENT History: No Pertinent History Cardiac History: Deep Vein Thrombosis, High Cholesterol, Hypertension Respiratory History: CHF Endocrine Medical History: Diabetes Type II Musculoskelatal History: Rheumatoid Arthritis GI Medical History: No Pertinent History History: No Pertinent History Pyscho-Social History: No Pertinent History Reproductive Disorders: No Pertinent History Comment: BURSITIS TO BOTH SHOULDERS, NEUROPATHY THROUGHOUT HER BODY (INCLUDING STOMACH, BUTTOCKSk) - Female History Hx Last Menstrual Period: post Are you now?: No - Past Surgical History Past Surgical History: Yes Neuro Surgical History: No Pertinent History Cardiac History: No Pertinent History Respiratory Surgery: No Pertinent History GI Surgical History: Other Genitourinary Surgical Hx: No Pertinent History Musculskeletal Surgical Hx: No Pertinent History Female Surgical History: Tubal Ligation, Other Other Surgical History: d & c, (rectal surgery x3, cyst removed from rectum). cyst removed from pancreas - Social History Smoking Status: Never smoker Exposure to second hand smoke: No Alcohol: None Drug Use: none Significant Family History: no pertinent family hx - Physical Exam Vital Signs: Vital Signs - 24 hr Temp Pulse Resp BP Pulse Ox 07/23/20 07:38 97.2 F 80 22 132/60 92 L 07/23/20 03:46 98.0 F 80 18 133/62 94 L 07/22/20 23:48 98.7 F 86 20 116/56 95 07/22/20 23:47 98.7 F 86 20 116/56 95 07/22/20 19:52 97.9 F 83 18 131/65 95 07/22/20 13:48 97.9 F 77 18 138/66 99 07/22/20 13:47 97.9 F 77 18 138/66 99 07/22/20 13:30 97 07/22/20 13:06 74 16 124/70 99 07/22/20 12:35 76 18 141/55 99 07/22/20 11:14 98.1 F 80 18 150/50 97 General Appearance: no apparent distress, alert, obese Neurologic Exam: cooperative, other (oriented to place; time is Jul 2019) Eye Exam: eyes nml inspection Ears, Nose, Throat Exam: moist mucous membranes Neck Exam: normal inspection Respiratory Exam: normal breath sounds, lungs clear, No crackles/rales, No rhonchi, No wheezing Cardiovascular Exam: regular rate/rhythm, normal heart sounds, No murmur Gastrointestinal/Abdomen Exam: soft, normal bowel sounds, No tenderness, No mass, No guarding, No rebound Extremity Exam: No swelling (no pitting) Skin Exam: normal color, warm, dry, No rash Results - Labs Lab/Micro Results: Lab Results-Last 24 Hours 07/22/20 07/22/20 07/22/20 Range/Units 11:30 11:30 11:30 WBC 5.2 (4.0-10.5) K/mm3 RBC 4.75 (4.1-5.4) M/mm3 Hgb 13.4 (12.0-16.0) gm/dl Hct 43.1 (35-47) % MCV 90.7 (78-100) fl MCH 28.2 (26-32) pg MCHC 31.1 L (32-36) g/dl RDW 14.9 H (11.5-14.0) % Plt Count 96 L (150-450) K/mm3 MPV 10.9 (7.5-11.0) fl Gran % 66.4 H (36.0-66.0) % Eos # (Auto) 0.09 (0-0.5) Absolute Lymphs (auto) 1.11 (1.0-4.6) Absolute Monos (auto) 0.53 (0.0-1.3) Lymphocytes % 21.2 L (24.0-44.0) % Monocytes % 10.1 (0.0-12.0) % Eosinophils % 1.7 (0.00-5.0) % Basophils % 0.6 (0.0-0.4) % Absolute Granulocytes 3.47 (1.4-6.9) Basophils # 0.03 (0-0.4) Sodium 140 (137-145) mmol/L Potassium 4.2 (3.5-5.1) mmol/L Chloride 100 (98-107) mmol/L Carbon Dioxide 33 H (22-30) mmol/L Anion Gap 11.4 (5-15) MEQ/L BUN 20 H (7-17) mg/dL Creatinine 0.86 (0.52-1.04) mg/dL Estimated GFR > 60.0 ML/MIN Glucose 264 H (74-106) mg/dL POC Glucometer (74 to 106) mg/dL Lactic Acid (0.4-2.0) Calcium 9.9 (8.4-10.2) mg/dL Magnesium (1.6-2.3) mg/dL Total Bilirubin 0.50 (0.2-1.3) mg/dL AST 44 H (14-36) U/L ALT 24 (0-35) U/L Alkaline Phosphatase 107 (38-126) U/L Creatine Kinase (30-135) U/L Troponin I < 0.012 (0.000-0.034) ng/mL Serum Total Protein 7.7 (6.3-8.2) g/dL Albumin 3.7 (3.5-5.0) g/dL TSH 3rd Generation (0.47-4.68) mIU/L Urine Color (YELLOW) Urine Appearance (CLEAR) Urine pH (5-6) Ur Specific [place] (1.005-1.025) Urine Protein (Negative) Urine Ketones (NEGATIVE) Urine Blood (0-5) Harvey/ul Urine Nitrite (NEGATIVE) Urine Bilirubin (NEGATIVE) Urine Urobilinogen (0-1) mg/dL Ur Leukocyte Esterase (NEGATIVE) Urine WBC (Auto) (0-5) /HPF Urine RBC (Auto) (0-2) /HPF U Hyaline Cast (Auto) (0-2) /LPF U Epithel Cells (Auto) (FEW) /HPF Urine Bacteria (Auto) (NEGATIVE) /HPF Urine Mucus (Auto) (NEGATIVE) /HPF Urine Culture Reflexed (NO) Urine Glucose (NEGATIVE) mg/dL Slides for Path Review YES 07/22/20 07/22/20 07/22/20 Range/Units 11:30 11:30 11:44 WBC (4.0-10.5) K/mm3 RBC (4.1-5.4) M/mm3 Hgb (12.0-16.0) gm/dl Hct (35-47) % MCV (78-100) fl MCH (26-32) pg MCHC (32-36) g/dl RDW (11.5-14.0) % Plt Count (150-450) K/mm3 MPV (7.5-11.0) fl Gran % (36.0-66.0) % Eos # (Auto) (0-0.5) Absolute Lymphs (auto) (1.0-4.6) Absolute Monos (auto) (0.0-1.3) Lymphocytes % (24.0-44.0) % Monocytes % (0.0-12.0) % Eosinophils % (0.00-5.0) % Basophils % (0.0-0.4) % Absolute Granulocytes (1.4-6.9) Basophils # (0-0.4) Sodium (137-145) mmol/L Potassium (3.5-5.1) mmol/L Chloride (98-107) mmol/L Carbon Dioxide (22-30) mmol/L Anion Gap (5-15) MEQ/L BUN (7-17) mg/dL Creatinine (0.52-1.04) mg/dL Estimated GFR ML/MIN Glucose (74-106) mg/dL POC Glucometer (74 to 106) mg/dL Lactic Acid 2.1 H (0.4-2.0) Calcium (8.4-10.2) mg/dL Magnesium 1.5 L (1.6-2.3) mg/dL Total Bilirubin (0.2-1.3) mg/dL AST (14-36) U/L ALT (0-35) U/L Alkaline Phosphatase (38-126) U/L Creatine Kinase 40 (30-135) U/L Troponin I (0.000-0.034) ng/mL Serum Total Protein (6.3-8.2) g/dL Albumin (3.5-5.0) g/dL TSH 3rd Generation 3.120 (0.47-4.68) mIU/L Urine Color (YELLOW) Urine Appearance (CLEAR) Urine pH (5-6) Ur Specific [place] (1.005-1.025) Urine Protein (Negative) Urine Ketones (NEGATIVE) Urine Blood (0-5) Harvey/ul Urine Nitrite (NEGATIVE) Urine Bilirubin (NEGATIVE) Urine Urobilinogen (0-1) mg/dL Ur Leukocyte Esterase (NEGATIVE) Urine WBC (Auto) (0-5) /HPF Urine RBC (Auto) (0-2) /HPF U Hyaline Cast (Auto) (0-2) /LPF U Epithel Cells (Auto) (FEW) /HPF Urine Bacteria (Auto) (NEGATIVE) /HPF Urine Mucus (Auto) (NEGATIVE) /HPF Urine Culture Reflexed (NO) Urine Glucose (NEGATIVE) mg/dL Slides for Path Review 07/22/20 07/22/20 07/22/20 Range/Units 11:47 13:56 14:45 WBC (4.0-10.5) K/mm3 RBC (4.1-5.4) M/mm3 Hgb (12.0-16.0) gm/dl Hct (35-47) % MCV (78-100) fl MCH (26-32) pg MCHC (32-36) g/dl RDW (11.5-14.0) % Plt Count (150-450) K/mm3 MPV (7.5-11.0) fl Gran % (36.0-66.0) % Eos # (Auto) (0-0.5) Absolute Lymphs (auto) (1.0-4.6) Absolute Monos (auto) (0.0-1.3) Lymphocytes % (24.0-44.0) % Monocytes % (0.0-12.0) % Eosinophils % (0.00-5.0) % Basophils % (0.0-0.4) % Absolute Granulocytes (1.4-6.9) Basophils # (0-0.4) Sodium (137-145) mmol/L Potassium (3.5-5.1) mmol/L Chloride (98-107) mmol/L Carbon Dioxide (22-30) mmol/L Anion Gap (5-15) MEQ/L BUN (7-17) mg/dL Creatinine (0.52-1.04) mg/dL Estimated GFR ML/MIN Glucose (74-106) mg/dL POC Glucometer (74 to 106) mg/dL Lactic Acid 1.8 (0.4-2.0) Calcium (8.4-10.2) mg/dL Magnesium (1.6-2.3) mg/dL Total Bilirubin (0.2-1.3) mg/dL AST (14-36) U/L ALT (0-35) U/L Alkaline Phosphatase (38-126) U/L Creatine Kinase (30-135) U/L Troponin I < 0.012 (0.000-0.034) ng/mL Serum Total Protein (6.3-8.2) g/dL Albumin (3.5-5.0) g/dL TSH 3rd Generation (0.47-4.68) mIU/L Urine Color SHIRLEY (YELLOW) Urine Appearance CLOUDY (CLEAR) Urine pH 5.0 (5-6) Ur Specific [place] 1.026 (1.005-1.025) Urine Protein 100 (Negative) Urine Ketones NEGATIVE (NEGATIVE) Urine Blood NEGATIVE (0-5) Harvey/ul Urine Nitrite NEGATIVE (NEGATIVE) Urine Bilirubin SMALL (NEGATIVE) Urine Urobilinogen 4 (0-1) mg/dL Ur Leukocyte Esterase MODERATE (NEGATIVE) Urine WBC (Auto) >100 (0-5) /HPF Urine RBC (Auto) 3-5 (0-2) /HPF U Hyaline Cast (Auto) 11-25 (0-2) /LPF U Epithel Cells (Auto) FEW (FEW) /HPF Urine Bacteria (Auto) FEW (NEGATIVE) /HPF Urine Mucus (Auto) MANY (NEGATIVE) /HPF Urine Culture Reflexed YES (NO) Urine Glucose >=500 (NEGATIVE) mg/dL Slides for Path Review 07/22/20 07/22/20 07/22/20 Range/Units 15:51 18:28 20:32 WBC (4.0-10.5) K/mm3 RBC (4.1-5.4) M/mm3 Hgb (12.0-16.0) gm/dl Hct (35-47) % MCV (78-100) fl MCH (26-32) pg MCHC (32-36) g/dl RDW (11.5-14.0) % Plt Count (150-450) K/mm3 MPV (7.5-11.0) fl Gran % (36.0-66.0) % Eos # (Auto) (0-0.5) Absolute Lymphs (auto) (1.0-4.6) Absolute Monos (auto) (0.0-1.3) Lymphocytes % (24.0-44.0) % Monocytes % (0.0-12.0) % Eosinophils % (0.00-5.0) % Basophils % (0.0-0.4) % Absolute Granulocytes (1.4-6.9) Basophils # (0-0.4) Sodium (137-145) mmol/L Potassium (3.5-5.1) mmol/L Chloride (98-107) mmol/L Carbon Dioxide (22-30) mmol/L Anion Gap (5-15) MEQ/L BUN (7-17) mg/dL Creatinine (0.52-1.04) mg/dL Estimated GFR ML/MIN Glucose (74-106) mg/dL POC Glucometer 223 H 242 H (74 to 106) mg/dL Lactic Acid (0.4-2.0) Calcium (8.4-10.2) mg/dL Magnesium (1.6-2.3) mg/dL Total Bilirubin (0.2-1.3) mg/dL AST (14-36) U/L ALT (0-35) U/L Alkaline Phosphatase (38-126) U/L Creatine Kinase (30-135) U/L Troponin I < 0.012 (0.000-0.034) ng/mL Serum Total Protein (6.3-8.2) g/dL Albumin (3.5-5.0) g/dL TSH 3rd Generation (0.47-4.68) mIU/L Urine Color (YELLOW) Urine Appearance (CLEAR) Urine pH (5-6) Ur Specific [place] (1.005-1.025) Urine Protein (Negative) Urine Ketones (NEGATIVE) Urine Blood (0-5) Harvey/ul Urine Nitrite (NEGATIVE) Urine Bilirubin (NEGATIVE) Urine Urobilinogen (0-1) mg/dL Ur Leukocyte Esterase (NEGATIVE) Urine WBC (Auto) (0-5) /HPF Urine RBC (Auto) (0-2) /HPF U Hyaline Cast (Auto) (0-2) /LPF U Epithel Cells (Auto) (FEW) /HPF Urine Bacteria (Auto) (NEGATIVE) /HPF Urine Mucus (Auto) (NEGATIVE) /HPF Urine Culture Reflexed (NO) Urine Glucose (NEGATIVE) mg/dL Slides for Path Review 07/23/20 07/23/20 07/23/20 Range/Units 01:30 04:20 04:20 WBC 4.9 (4.0-10.5) K/mm3 RBC 4.27 (4.1-5.4) M/mm3 Hgb 12.0 (12.0-16.0) gm/dl Hct 39.4 (35-47) % MCV 92.3 (78-100) fl MCH 28.1 (26-32) pg MCHC 30.5 L (32-36) g/dl RDW 14.9 H (11.5-14.0) % Plt Count 101 L (150-450) K/mm3 MPV 11.7 H (7.5-11.0) fl Gran % 59.3 (36.0-66.0) % Eos # (Auto) 0.17 (0-0.5) Absolute Lymphs (auto) 1.28 (1.0-4.6) Absolute Monos (auto) 0.51 (0.0-1.3) Lymphocytes % 26.3 (24.0-44.0) % Monocytes % 10.5 (0.0-12.0) % Eosinophils % 3.5 (0.00-5.0) % Basophils % 0.4 (0.0-0.4) % Absolute Granulocytes 2.89 (1.4-6.9) Basophils # 0.02 (0-0.4) Sodium 140 (137-145) mmol/L Potassium 3.6 (3.5-5.1) mmol/L Chloride 104 (98-107) mmol/L Carbon Dioxide 30 (22-30) mmol/L Anion Gap 9.0 (5-15) MEQ/L BUN 23 H (7-17) mg/dL Creatinine 0.81 (0.52-1.04) mg/dL Estimated GFR > 60.0 ML/MIN Glucose 189 H (74-106) mg/dL POC Glucometer 181 H (74 to 106) mg/dL Lactic Acid (0.4-2.0) Calcium 9.0 (8.4-10.2) mg/dL Magnesium (1.6-2.3) mg/dL Total Bilirubin 0.40 (0.2-1.3) mg/dL AST 39 H (14-36) U/L ALT 21 (0-35) U/L Alkaline Phosphatase 89 (38-126) U/L Creatine Kinase (30-135) U/L Troponin I (0.000-0.034) ng/mL Serum Total Protein 6.6 (6.3-8.2) g/dL Albumin 3.1 L (3.5-5.0) g/dL TSH 3rd Generation (0.47-4.68) mIU/L Urine Color (YELLOW) Urine Appearance (CLEAR) Urine pH (5-6) Ur Specific [place] (1.005-1.025) Urine Protein (Negative) Urine Ketones (NEGATIVE) Urine Blood (0-5) Harvey/ul Urine Nitrite (NEGATIVE) Urine Bilirubin (NEGATIVE) Urine Urobilinogen (0-1) mg/dL Ur Leukocyte Esterase (NEGATIVE) Urine WBC (Auto) (0-5) /HPF Urine RBC (Auto) (0-2) /HPF U Hyaline Cast (Auto) (0-2) /LPF U Epithel Cells (Auto) (FEW) /HPF Urine Bacteria (Auto) (NEGATIVE) /HPF Urine Mucus (Auto) (NEGATIVE) /HPF Urine Culture Reflexed (NO) Urine Glucose (NEGATIVE) mg/dL Slides for Path Review 07/23/20 07/23/20 Range/Units 04:20 07:32 WBC (4.0-10.5) K/mm3 RBC (4.1-5.4) M/mm3 Hgb (12.0-16.0) gm/dl Hct (35-47) % MCV (78-100) fl MCH (26-32) pg MCHC (32-36) g/dl RDW (11.5-14.0) % Plt Count (150-450) K/mm3 MPV (7.5-11.0) fl Gran % (36.0-66.0) % Eos # (Auto) (0-0.5) Absolute Lymphs (auto) (1.0-4.6) Absolute Monos (auto) (0.0-1.3) Lymphocytes % (24.0-44.0) % Monocytes % (0.0-12.0) % Eosinophils % (0.00-5.0) % Basophils % (0.0-0.4) % Absolute Granulocytes (1.4-6.9) Basophils # (0-0.4) Sodium (137-145) mmol/L Potassium (3.5-5.1) mmol/L Chloride (98-107) mmol/L Carbon Dioxide (22-30) mmol/L Anion Gap (5-15) MEQ/L BUN (7-17) mg/dL Creatinine (0.52-1.04) mg/dL Estimated GFR ML/MIN Glucose (74-106) mg/dL POC Glucometer 149 H (74 to 106) mg/dL Lactic Acid (0.4-2.0) Calcium (8.4-10.2) mg/dL Magnesium 1.8 (1.6-2.3) mg/dL Total Bilirubin (0.2-1.3) mg/dL AST (14-36) U/L ALT (0-35) U/L Alkaline Phosphatase (38-126) U/L Creatine Kinase (30-135) U/L Troponin I (0.000-0.034) ng/mL Serum Total Protein (6.3-8.2) g/dL Albumin (3.5-5.0) g/dL TSH 3rd Generation (0.47-4.68) mIU/L Urine Color (YELLOW) Urine Appearance (CLEAR) Urine pH (5-6) Ur Specific [place] (1.005-1.025) Urine Protein (Negative) Urine Ketones (NEGATIVE) Urine Blood (0-5) Harvey/ul Urine Nitrite (NEGATIVE) Urine Bilirubin (NEGATIVE) Urine Urobilinogen (0-1) mg/dL Ur Leukocyte Esterase (NEGATIVE) Urine WBC (Auto) (0-5) /HPF Urine RBC (Auto) (0-2) /HPF U Hyaline Cast (Auto) (0-2) /LPF U Epithel Cells (Auto) (FEW) /HPF Urine Bacteria (Auto) (NEGATIVE) /HPF Urine Mucus (Auto) (NEGATIVE) /HPF Urine Culture Reflexed (NO) Urine Glucose (NEGATIVE) mg/dL Slides for Path Review Microbiology 07/22/20 11:47 Urine Culture - Preliminary Urine, Catheterized GRAM NEGATIVE ID AND SENSITIVITY PENDING Accuchecks Date 07/23/20 Date 07/22/20 Date 07/22/20 Date 07/22/20 Time 22:00 Time 16:02 Time 16:02 - Radiology Impressions Radiology Exams & Impressions: Radiology Procedures Category Date Time Status ABDOMEN AND PELVIS W/0 CONTRAS [CT] Stat Exams 07/22/20 12:27 Completed CHEST 1 VIEW (PORTABLE) Stat Exams 07/22/20 11:45 Completed Assessment/Plan (1) Acute UTI Current Visit: Yes Status: Acute Assessment & Plan: Gram neg, ID pending. on day #2. Code(s): N39.0 - URINARY TRACT INFECTION, SITE NOT SPECIFIED (2) Diabetes mellitus Current Visit: Yes Status: Acute Qualifiers: Diabetes mellitus type: type 2 Diabetes mellitus skilled nursing insulin use: with intermodal customer service use Diabetes mellitus complication status: with other specified complication Qualified Code(s): E11.69 - Type 2 diabetes mellitus with other specified complication; Z79.4 - terminal carman (current) use of insulin Code(s): E11.9 - TYPE 2 DIABETES MELLITUS WITHOUT COMPLICATIONS (3) Generalized weakness Current Visit: Yes Status: Acute Assessment & Plan: PT to consult. Code(s): R53.1 - WEAKNESS (4) Recurrent falls Current Visit: Yes Status: Acute Code(s): R29.6 - REPEATED FALLS
[2020-07-23] MEDS: ROCEPHIN 1 Gm-D5w 50 ml Bag** 1 G/50 ML IVPB IV SCH (09:01)
[2020-07-23] MEDS: Colace 100 MG PO SCH ×2 (09:04→21:04)
[2020-07-23] MEDS: Protonix 40MG Tablet PO SCH (09:04)
[2020-07-23] MEDS: Zestril 20 MG PO SCH (09:04)
[2020-07-23] MEDS: NEURONTIN 300 MG PO SCH ×4 (09:04→21:04)
[2020-07-23] MEDS ORDERED: PROTONIX 40 MG IV IV SCH (10:00)
[2020-07-23] MEDS ORDERED: NON-FORMULARY ITEM (Omeprazole 20 Mg [Prilosec 20 Mg] 20 MG) PO SCH (10:00)
[2020-07-23 12:05] LABS: INFLUENZA A NEGATIVE (NEGATIVE); INFLUENZA B NEGATIVE (NEGATIVE); RESPIRATORY SYNCTIAL VIRUS NEGATIVE (Negative)
[2020-07-23] MEDS: ZOCOR 20MG PO SCH (21:05)
[2020-07-23] MEDS: HUMALOG SQ PRN (21:05)
[2020-07-23] MEDS: Lantus Insulin SQ SCH (21:05)
[2020-07-24] MEDS: MORPHINE SULFATE 4 MG INJ IV PRN ×4 (03:30→20:44)
[2020-07-24] MEDS: Zofran 4 MG/2 ML VIAL IV PRN ×2 (04:39→21:22)
--- NOTE | 2020-07-24 08:24 | PCM.NOTE ---
Date and Time: 07/24/20820 Subjective Assessment: Pt still c/o of some "jerking" although less than yesterday. Concerned about the jerking when she had a fall. Jeremy po. Has been using IV morphine for pain control. Does still c/o pain at superior gluteal cleft. - Review of Systems Constitutional: No Fever Abdominal/Gastrointestinal: No Vomiting Objective Exam General Appearance: no apparent distress, obese Neurologic Exam: alert, cooperative Skin Exam: normal color, warm, dry, No rash Respiratory Exam: normal breath sounds, lungs clear, No crackles/rales, No rhonchi, No wheezing Cardiovascular Exam: regular rate/rhythm, normal heart sounds, No murmur Extremity Exam: swelling (trace pretibial edema bilat. feet edematous bilat.) Back Exam: other (superior gluteal cleft is ttp. no crepitus, erythema, or lesions.) OBJECTIVE DATA Vital Signs: Vital Signs - 24 hr Temp Pulse Resp BP Pulse Ox 07/24/20 04:00 98.1 F 75 20 124/59 91 L 07/24/20 00:00 98.2 F 78 18 135/62 93 L 07/23/20 19:17 97.8 F 80 20 149/60 96 07/23/20 16:00 98.4 F 74 10 L 148/67 92 L 07/23/20 12:00 98.3 F 79 12 132/63 91 L Pain Assessment - Last Documented Pain Intensity 8 Pain Scale Used 0-10 Pain Scale Intake and Output: Intake & Output 07/21/20 07/22/20 07/23/20 07/24/20 11:59 11:59 11:59 11:59 Intake Total 240 1010 Output Total 350 1100 Balance -110 -90 Weight 133.81 kg 141.4 kg 139 kg Lab Results: Lab Results-Last 24 Hours 07/23/20 07/23/20 07/23/20 Range/Units 04:20 11:23 11:28 POC Glucometer 187 H (74 to 106) mg/dL Hemoglobin A1c 11.49 H (4.5-6.0) % Influenza Type A Ag NEGATIVE (NEGATIVE) Influenza Type B Ag NEGATIVE (NEGATIVE) RSV (PCR) NEGATIVE (Negative) SARS-CoV-2 (PCR) NEGATIVE (NEGATIVE) 07/23/20 07/23/20 07/24/20 Range/Units 16:24 20:56 07:16 POC Glucometer 210 H 291 H 156 H (74 to 106) mg/dL Hemoglobin A1c (4.5-6.0) % Influenza Type A Ag (NEGATIVE) Influenza Type B Ag (NEGATIVE) RSV (PCR) (Negative) SARS-CoV-2 (PCR) (NEGATIVE) Radiology Exams: Radiology Procedures Category Date Time Status ABDOMEN AND PELVIS W/0 CONTRAS [CT] Stat Exams 07/22/20 12:27 Completed CHEST 1 VIEW (PORTABLE) Stat Exams 07/22/20 11:45 Completed Assessment/Plan (1) Acute UTI Current Visit: Yes Status: Acute Assessment & Plan: culture still pending. On day #3 IV rocephin. Code(s): N39.0 - URINARY TRACT INFECTION, SITE NOT SPECIFIED (2) Diabetes mellitus Current Visit: Yes Status: Chronic Qualifiers: Diabetes mellitus type: type 2 Diabetes mellitus ocean transportation intermediary insulin use: with ocean transportation intermediary use Diabetes mellitus complication status: with other specified complication Qualified Code(s): E11.69 - Type 2 diabetes mellitus with other specified complication; Z79.4 - senior living (current) use of insulin Code(s): E11.9 - TYPE 2 DIABETES MELLITUS WITHOUT COMPLICATIONS (3) Generalized weakness Current Visit: Yes Status: Acute Code(s): R53.1 - WEAKNESS (4) Recurrent falls Current Visit: Yes Status: Acute Code(s): R29.6 - REPEATED FALLS (5) Jerking Current Visit: Yes Status: Acute Assessment & Plan: EEG Code(s): R25.3 - FASCICULATION (6) Coccygeal pain Current Visit: Yes Status: Acute Assessment & Plan: xr coccyx Code(s): M53.3 - SACROCOCCYGEAL DISORDERS, NOT ELSEWHERE CLASSIFIED
[2020-07-24] MEDS: ROCEPHIN 1 Gm-D5w 50 ml Bag** 1 G/50 ML IVPB IV SCH (09:11)
[2020-07-24] MEDS: Colace 100 MG PO SCH ×2 (09:11→21:23)
[2020-07-24] MEDS: Zestril 20 MG PO SCH (09:11)
[2020-07-24] MEDS: NEURONTIN 300 MG PO SCH ×3 (09:11→21:22)
[2020-07-24] MEDS: Protonix 40MG Tablet PO SCH (09:11)
--- NOTE | 2020-07-24 09:27 | XRAY ---
Indication: Tailbone pain following fall. Comparison: None 3 view sacrum/coccyx demonstrates coccygeal deformity either developmental versus old injury based on CT abdomen/pelvis 2 days earlier. Scattered pelvic vascular calcifications. No other bony, articular, or soft tissue abnormalities.
[2020-07-24] MEDS: HUMALOG SQ PRN ×3 (13:08→21:23)
[2020-07-24] MEDS: ZOCOR 20MG PO SCH (21:22)
[2020-07-24] MEDS: Lantus Insulin SQ SCH (21:23)
[2020-07-25] MEDS: MORPHINE SULFATE 4 MG INJ IV PRN ×2 (02:45→06:50)
[2020-07-25 07:08] VITALS: PULSE 72
[2020-07-25] MEDS: HYDROCODONE-ACETAMIN 10-325 MG PO PRN ×2 (08:52→12:49)
--- NOTE | 2020-07-25 09:47 | PCM.DS ---
Discharge Summary Date of Admission: 07/22/20 13:44 Admitting Physician: FELIPE LEDESMA Primary Care Provider: FELIPE LEDESMA Allergies Allergies adhesive tape Adverse Reaction (Intermediate, Verified 07/22/20 11:27) Hospital Summary - Hospital Course Hospital Course: Pt is 55 yo female pt with DM, HTN, CHF, hx DVT, and OA admitted through ER after several falls, found to have UTI. EEG is pending due to some jerking movements when she fell. Her urine grew K. pneumoniae; she has been treated with rocephin for 3d and will be sent home on augmentin for 4d. - Vitals & Intake/Output Vital Signs: Vital Signs Temperature 98.2 F 07/25/20 07:07 Pulse Rate 72 07/25/20 07:07 Respiratory Rate 18 07/25/20 07:07 Blood Pressure 138/64 07/25/20 07:07 O2 Sat by Pulse Oximetry 94 L 07/25/20 07:07 Intake & Output: Intake & Output 07/22/20 07/23/20 07/24/20 07/25/20 11:59 11:59 11:59 11:59 Intake Total 240 1010 480 Output Total 350 1100 400 Balance -110 -90 80 Weight 133.81 kg 141.4 kg 139 kg 142 kg - Lab Result Diagrams: 07/23/20 04:20 07/23/20 04:20 Lab Results-Last 24 Hrs: Lab Results-Last 24 Hours 07/24/20 07/24/20 07/24/20 Range/Units 12:47 16:40 20:29 POC Glucometer 222 H 256 H 285 H (74 to 106) mg/dL 07/25/20 Range/Units 06:33 POC Glucometer 242 H (74 to 106) mg/dL Micro Results-Entire Visit: Microbiology 07/22/20 11:47 Urine Culture - Final Urine, Catheterized Klebsiella Pneumoniae 07/22/20 12:05 Blood Culture - Preliminary Blood NO GROWTH TO DATE 07/22/20 11:30 Blood Culture - Preliminary Blood NO GROWTH TO DATE Accuchecks Date 07/24/20 Date 07/24/20 Time 20:29 Time 22:00 - Radiology Exams Ordered Rad Exams-Entire Visit: Radiology Procedures Category Date Time Status SACRUM AND COCCYX Routine Exams 07/24/20 09:03 Completed - Procedures and Test Procedures and Tests throughout Hospitalization: Therapy Orders & Screens 07/22/20 14:33 BiPap/CPAP ROUTINE Comment: Diagnosis: Generalized Weakness 07/24/20 07:11 PT Eval & Treat (MD Order) ONCE Reason for Eval:: falls, weakness Diagnosis: Generalized Weakness 07/24/20 08:25 EEG 41-60 Minutes (Normal) ONCE Comment: Reason For Exam: Diagnosis: Generalized Weakness Discharge Exam General Appearance: no apparent distress, alert, obese Neurologic Exam: oriented x 3, cooperative Eye Exam: eyes nml inspection Ears, Nose, Throat Exam: moist mucous membranes Respiratory Exam: normal breath sounds, lungs clear, No crackles/rales, No rhonchi, No wheezing Cardiovascular Exam: regular rate/rhythm, normal heart sounds, No murmur Extremity Exam: normal inspection, No pedal edema, No swelling Skin Exam: normal color, warm, dry, No rash Final Diagnosis/Problem List - Final Discharge Diagnosis/Problem (1) Acute UTI Current Visit: Yes Status: Acute Assessment & Plan: Doing well, home on 4d of augmentin. Will need to f/u in office with me x 1, but does need a new PCP as she was terminated from [facility]. Code(s): N39.0 - URINARY TRACT INFECTION, SITE NOT SPECIFIED (2) Diabetes mellitus Current Visit: Yes Status: Chronic Code(s): E11.9 - TYPE 2 DIABETES MELLITUS WITHOUT COMPLICATIONS (3) Generalized weakness Current Visit: Yes Status: Acute Code(s): R53.1 - WEAKNESS (4) Recurrent falls Current Visit: Yes Status: Acute Code(s): R29.6 - REPEATED FALLS (5) Jerking Current Visit: Yes Status: Resolved Code(s): R25.3 - FASCICULATION (6) Coccygeal pain Current Visit: Yes Status: Acute Code(s): M53.3 - SACROCOCCYGEAL DISORDERS, NOT ELSEWHERE CLASSIFIED - Discharge Disposition: Home, Self-Care Condition: Stable Prescriptions: New Amoxicillin/Potassium Clav [Augmentin 875-125 Tablet] 875 mg PO BID #8 tablet Continue Lisinopril 20 mg [Zestril 20 MG] 40 mg PO DAILY Furosemide [Lasix] 40 mg PO DAILY PRN PRN PRN Reason: water retention Potassium Chloride 10 Meq Tab* [Klor Con 10 MEQ] 20 meq PO DAILY PRN PRN PRN Reason: supplement Insulin Glargine,Hum.rec.anlog [Basaglar Sabinaikpen U-100] 80 unit SQ HS Gabapentin [Neurontin] 600 mg PO TID Atorvastatin Calcium [Lipitor 20MG Tablet] 20 mg PO HS Buprenorphine HCl [Belbuca] 600 mcg BC Q12H Omeprazole 20 MG [Prilosec 20 mg] 20 mg PO DAILY Hydrocodone Bit/Acetaminophen [[place] 10-325 Tablet] 1 each PO Q4H PRN PRN #6 tablet PRN Reason: Pain Insulin Lispro [Admelog Solostar] 1 unit SQ UD Follow up with: FELIPE LEDESMA [Primary Care Provider] -
[2020-07-25] MEDS: Colace 100 MG PO SCH (09:49)
[2020-07-25] MEDS: NEURONTIN 300 MG PO SCH ×2 (09:50→15:31)
[2020-07-25] MEDS: Zestril 20 MG PO SCH (09:50)
[2020-07-25] MEDS: Protonix 40MG Tablet PO SCH (09:50)
[2020-07-25] MEDS: ROCEPHIN 1 Gm-D5w 50 ml Bag** 1 G/50 ML IVPB IV SCH (09:51)
[2020-07-25] MEDS: HUMALOG SQ PRN (12:12)
[2020-07-25 12:17] VITALS: O2SAT 97
[2020-07-25 16:04] VITALS: BP 130/70
== END 2020-07-25 16:20 | disposition home or self-care (01) ==
LOC: ED 11:14 → MED SURG 13:44
PROVIDERS: ADMIT Family Medicine; ATTEND Family Medicine
DX: N39.0 Urinary tract infection, site not specified (principal); R53.1 Weakness; I10 Essential (primary) hypertension; E11.9 Type 2 diabetes mellitus without complications; E78.5 Hyperlipidemia, unspecified; R53.83 Other fatigue; W19.XXXA Unspecified fall, initial encounter; Z79.899 Other long term (current) drug therapy; G47.30 Sleep apnea, unspecified; E83.42 Hypomagnesemia; R25.3 Fasciculation; M53.3 Sacrococcygeal disorders, not elsewhere classified; E78.00 Pure hypercholesterolemia, unspecified
CPT/HCPCS: 0241U; 36000; 36415; 71045; 72220; 74176; 80053; 81001; 82550; 82947; 83036; 83605; 83735; 84443; 84484; 85025; 87040; 87077; 87086; 87186; 93005; 93041; 95812; 96365; 96374; 97161; 97530; 99285; P9612; 93268; J0696; J1817; J2270; J2405; J3475; A9270-GY; G0378

== ENCOUNTER 2020-08-24 11:09 | Emergency (ER) | payer OTHER ==
--- NOTE | 2020-08-24 11:14 | ERPHSYRPT ---
- History of Present Illness Time Seen by Provider: 08/24/20 11:13 Source: patient Exam Limitations: no limitations Physician History: This is a 55-year-old obese white female who has a history of DVTs in the remote past and presents with bilateral lower extremity redness pain and swelling. The swelling is worse in the right lower extremity. Patient does see her primary care physician on 08/27/2020. She was concerned about the swelling and the redness that are present. Patient sees a pain specialist and cannot have any other narcotics outside of what is prescribed by her pain specialist. She sees her pain specialist on 08/28/2020. Method of Injury: other (No injury) Occurred: days ago (Several days increased amount of redness and swelling) Quality: aching Severity of Pain-Max: mild Severity of Pain-Current: mild Lower Extremities Pain: leg: left Modifying Factors: Improves With: nothing Associated Symptoms: other (Is able to bear weight) Allergies/Adverse Reactions: adhesive tape Adverse Reaction (Intermediate, Verified 08/24/20 11:25) Home Medications: Lisinopril 20 mg [Zestril 20 MG] 40 mg PO DAILY 08/25/12 [History] Furosemide [Lasix] 40 mg PO DAILY PRN PRN 10/06/13 [History] Atorvastatin Calcium [Lipitor 20MG Tablet] 20 mg PO HS 06/11/17 [History] Gabapentin [Neurontin] 600 mg PO TID 06/11/17 [History] Insulin Glargine,Hum.rec.anlog [Basaglar Kwikpen U-100] 80 unit SQ HS 06/11/17 [History] Potassium Chloride 10 Meq Tab* [Klor Con 10 MEQ] 20 meq PO DAILY PRN PRN 06/11/17 [History] Buprenorphine HCl [Belbuca] 600 mcg BC Q12H 07/31/17 [History] Omeprazole 20 MG [Prilosec 20 mg] 20 mg PO DAILY 07/31/17 [History] Insulin Lispro [Admelog Solostar] 1 unit SQ UD 07/22/20 [History] Hx Tetanus, Diphtheria Vaccination/Date Given: Yes Hx Influenza Vaccination/Date Given: No Hx Pneumococcal Vaccination/Date Given: No Travel Risk - International Travel Have you traveled outside of the country in past 3 weeks: No - Coronavirus Screening Are you exhibiting any of the following symptoms?: No Close contact with a COVID-19 positive Pt in past 14-21 Days: No - Review of Systems Constitutional: No Symptoms Eyes: No Symptoms Ears, Nose, & Throat: No Symptoms Respiratory: No Symptoms Cardiac: No Symptoms Abdominal/Gastrointestinal: No Symptoms Genitourinary Symptoms: No Symptoms Musculoskeletal: Other (Swelling bilateral lower legs right greater than left) Skin: Cellulitis (Bilateral lower leg) Neurological: No Symptoms Psychological: No Symptoms Endocrine: No Symptoms Hematologic/Lymphatic: No Symptoms Immunological/Allergic: No Symptoms All Other Systems: Reviewed and Negative - Past Medical History Pertinent Past Medical History: Yes Neurological History: No Pertinent History ENT History: No Pertinent History Cardiac History: Deep Vein Thrombosis, High Cholesterol, Hypertension Respiratory History: CHF Endocrine Medical History: Diabetes Type II Musculoskeletal History: Rheumatoid Arthritis GI Medical History: No Pertinent History History: No Pertinent History Psycho-Social History: No Pertinent History Female Reproductive Disorders: No Pertinent History Other Medical History: BURSITIS TO BOTH SHOULDERS, NEUROPATHY THROUGHOUT HER BODY (INCLUDING STOMACH, BUTTOCKSk) - Past Surgical History Past Surgical History: Yes Neuro Surgical History: No Pertinent History Cardiac: No Pertinent History Respiratory: No Pertinent History Gastrointestinal: Other Genitourinary: No Pertinent History Musculoskeletal: No Pertinent History Female Surgical History: Tubal Ligation, Other Other Surgical History: d & c, (rectal surgery x3, cyst removed from rectum). cyst removed from pancreas - Social History Smoking Status: Never smoker Exposure to second hand smoke: No Drug Use: none Patient Lives Alone: No Significant Family History: no pertinent family hx - Nursing Vital Signs Nursing Vital Signs: Initial Vital Signs Temperature 98.0 F 08/24/20 11:17 Pulse Rate 74 08/24/20 11:17 Blood Pressure 149/60 08/24/20 11:17 O2 Sat by Pulse Oximetry 94 L 08/24/20 11:17 Pain Scale Pain Intensity 8 - Physical Exam General Appearance: no apparent distress, alert, anxiety, obese Eyes, Ears, Nose, Throat Exam: normal ENT inspection, moist mucous membranes Neck Exam: normal inspection, non-tender, supple, full range of motion Cardiovascular/Respiratory Exam: chest non-tender, no respiratory distress Gastrointestinal/Abdominal Exam: non-tender Back Exam: normal inspection, normal range of motion, No CVA tenderness, No vertebral tenderness Hips Exam: bilateral: non-tender, normal inspection, normal range of motion, no evidence of injury Legs Exam: bilateral leg: soft tissue tenderness, swelling, other (Cellulitis) Knees Exam: bilateral knee: non-tender, normal inspection, normal range of motion, no evidence of injury Ankle Exam: bilateral ankle: soft tissue tenderness, swelling, other (Cellulitis) Foot Exam: bilateral foot: non-tender, normal inspection, normal range of motion, no evidence of injury Neuro/Tendon Exam: normal sensation, normal motor functions, normal tendon functions, responds to pain Mental Status Exam: alert, oriented x 3, cooperative Skin Exam: other (Cellulitis and redness bilateral lower legs) SpO2 Interpretation: normal O2 Delivery: Room Air - Course Nursing assessment & vital signs reviewed: Yes Ordered Tests: Active Orders 24 hr Category Date Time Status IV Insertion STAT Care 08/24/20 12:17 Active VENOUS BILATERAL EXTREMITY [US] Stat Exams 08/24/20 11:38 Taken Medication Summary Generic Name Dose Route Start Last Admin Trade Name Freq PRN Reason Stop Dose Admin Ceftriaxone Sodium/Dextrose 1 g in 50 mls @ 100 mls/hr 08/24/20 12:22 08/24/20 12:31 Rocephin 1 Gm-D5w 50 Ml Bag IV 08/24/20 12:51 100 mls/hr STAT STA 100 mls/hr Administration Discontinued Medications Generic Name Dose Route Start Last Admin Trade Name Freq PRN Reason Stop Dose Admin Ceftriaxone Sodium 1,000 mg 08/24/20 12:13 08/24/20 12:22 Rocephin 1000 Mg Inj IM 08/24/20 12:14 Not Given STAT ONE Ceftriaxone Sodium/Dextrose Confirm 08/24/20 12:26 Rocephin 1 Gm-D5w 50 Ml Bag Administered 08/24/20 12:27 Dose 1 g in 50 mls @ ud IV .STK-MED ONE Morphine Sulfate 4 mg 08/24/20 12:14 08/24/20 12:22 Morphine Sulfate 4 Mg Inj IM 08/24/20 12:15 Not Given STAT ONE Morphine Sulfate 4 mg 08/24/20 12:22 08/24/20 12:31 Morphine Sulfate 4 Mg Inj IV 08/24/20 12:23 4 mg STAT ONE Administration Morphine Sulfate Confirm 08/24/20 12:26 Morphine Sulfate 4 Mg Inj Administered 08/24/20 12:27 Dose 4 mg .ROUTE .STK-MED ONE Ondansetron HCl 4 mg 08/24/20 12:14 08/24/20 12:32 Zofran Odt 4 Mg PO 08/24/20 12:15 4 mg STAT ONE Administration Ondansetron HCl Confirm 08/24/20 12:25 Zofran 4 Mg/2 Ml Vial Administered 08/24/20 12:26 Dose 4 mg .ROUTE .STK-MED ONE - Progress Progress Note: 08/24/20 12:49 Venous Doppler of bilateral lower extremities reveals no evidence of DVT Counseled pt/family regarding: diagnosis, need for follow-up, rad results - Departure Departure Disposition: Home Clinical Impression: Bilateral lower leg cellulitis Condition: Stable Critical Care Time: No Referrals: FELIPE LEDESMA [ACTIVE STAFF] - Additional Instructions: Keep bilateral lower leg extremities clean. Take the antibiotics as prescribed. Keep your appointment with your primary care physician on 08/27/2020. Take your pain medication as prescribed by your pain specialist. Prescriptions: Cephalexin Mh 500 mg [Keflex 500 mg] 500 mg PO TID #21 capsule
[2020-08-24] MEDS: MORPHINE SULFATE 4 MG INJ IM ONE (12:22)
[2020-08-24] MEDS: Rocephin 1000 MG INJ IM ONE (12:22)
[2020-08-24] MEDS ORDERED: Zofran 4 MG/2 ML VIAL ONE (12:25)
[2020-08-24] MEDS ORDERED: MORPHINE SULFATE 4 MG INJ ONE (12:26)
[2020-08-24] MEDS ORDERED: ROCEPHIN 1 Gm-D5w 50 ml Bag** 1 G/50 ML IVPB IV ONE (12:26)
[2020-08-24] MEDS: ROCEPHIN 1 Gm-D5w 50 ml Bag** 1 G/50 ML IVPB IV STA (12:31)
[2020-08-24] MEDS: MORPHINE SULFATE 4 MG INJ IV ONE (12:31)
[2020-08-24] MEDS: ZOFRAN ODT 4 MG PO ONE (12:32)
--- NOTE | 2020-08-24 12:46 | XRAY ---
Indication: Bilateral pain and swelling. Two-dimensional sonogram and color Doppler imaging of the major venous vessels of the left and right leg was performed. Comparison: None No thrombus seen in the examined deep venous vessels of the left and right leg including greater saphenous vein. Veins demonstrate normal compressibility. Venous waveforms are normal with and without augmentation. Impression: Left and right legs negative for DVT.
[2020-08-24 13:03] VITALS: BP 141/64; PULSE 71; O2SAT 90
== END 2020-08-24 13:11 | disposition home or self-care (01) ==
LOC: ED 11:09
DX: L03.116 Cellulitis of left lower limb (principal); L03.115 Cellulitis of right lower limb; Z86.718 Personal history of other venous thrombosis and embolism; Z79.899 Other long term (current) drug therapy
CPT/HCPCS: 36000; 93970; 96374; 99284; J0696; J2270; J2405; Q0162

== ENCOUNTER 2022-04-10 12:46 | Emergency (ER) | payer OTHER ==
[2022-04-10] MEDS ORDERED: CLEOCIN 150 MG CAPSULE PO ONE (13:16)
[2022-04-10] MEDS ORDERED: PERCOCET TABLET 5/325MG PO ONE (13:16)
[2022-04-10] MEDS ORDERED: Rocephin 1000 MG INJ IM ONE (13:16)
[2022-04-10 13:18] VITALS: O2SAT 97
[2022-04-10] MEDS ORDERED: PERCOCET TABLET 5/325MG ONE (13:39)
[2022-04-10] MEDS ORDERED: CLEOCIN 150 MG CAPSULE ONE (13:39)
[2022-04-10] MEDS ORDERED: Rocephin 1000 MG INJ ONE (13:39)
[2022-04-10] MEDS ORDERED: XYLOCAINE 1% HCL 20 ML MDV IJ ONE (13:40)
[2022-04-10] MEDS ORDERED: XYLOCAINE 1% HCL 20 ML MDV ONE (13:40)
--- NOTE | 2022-04-10 13:54 | XRAY ---
Indication: Swelling. No known injury. Comparison: None 3 view left hand demonstrates tiny proximal 5th phalanx head heterotopic ossifications either degenerative versus old injury. Mild 2nd finger soft tissue swelling. No other bony, articular, or soft tissue abnormalities.
--- NOTE | 2022-04-10 14:00 | ERPHSYRPT ---
- History of Present Illness Time Seen by Provider: 04/10/22 12:49 Source: patient Exam Limitations: no limitations Patient Subjective Stated Complaint: C/O left hand, second digit pain Triage Nursing Assessment: Second digit to left hand is red, swollen, hot to touch. Radial pulse present. Patient is able to move finger WNL. Sensation to fingertip intact. 2nd and 3rd knuckles also swollen. Patient denies injury. Skin intact to area. Physician History: 57 years old right-handed dominant female with history of diabetes mellitus, hypertension, carpal tunnel presented in the ER with chief complaint of left index finger swelling and redness gradually started yesterday and progressively worsening overnight with associated moderate intensity sharp pain with movements of second digit left hand. Pain is radiating to the proximal hand and forearm. Denies any fall or trauma. No history of gout. No fever or chills reported. Timing/Duration: yesterday, constant, gradual onset, worse Quality: painful Severity: moderate Location: hands Possible Causes: no cause identified Associated Symptoms: rash, swelling/mass/lumps, No fever Allergies/Adverse Reactions: adhesive tape Adverse Reaction (Intermediate, Verified 04/10/22 13:03) Home Medications: Lisinopril 20 mg [Zestril 20 MG] 40 mg PO DAILY 08/25/12 [History] Furosemide [Lasix] 40 mg PO DAILY PRN PRN 10/06/13 [History] Atorvastatin Calcium [Lipitor 20MG Tablet] 20 mg PO HS 06/11/17 [History] Gabapentin [Neurontin] 600 mg PO TID 06/11/17 [History] Insulin Glargine,Hum.rec.anlog [Basaglar Kwikpen U-100] 80 unit SQ HS 06/11/17 [History] Potassium Chloride Tab* [Klor Con] 20 meq PO DAILY PRN PRN 06/11/17 [History] Buprenorphine HCl [Belbuca] 600 mcg BC Q12H 07/31/17 [History] Omeprazole 20 MG [Prilosec 20 mg] 20 mg PO DAILY 07/31/17 [History] Insulin Lispro [Admelog Solostar] 1 unit SQ UD 07/22/20 [History] Hx Tetanus, Diphtheria Vaccination/Date Given: Yes Hx Influenza Vaccination/Date Given: No Hx Pneumococcal Vaccination/Date Given: No Immunizations Up to Date: Yes Travel Risk - International Travel Have you traveled outside of the country in past 3 weeks: No - Coronavirus Screening Are you exhibiting any of the following symptoms?: No Close contact with a COVID-19 positive Pt in past 14-21 Days: No - Vaccine Status Have you recieved a Covid-19 vaccination: No - Review of Systems Constitutional: No Symptoms Eyes: No Symptoms Respiratory: No Symptoms Cardiac: No Symptoms Abdominal/Gastrointestinal: No Symptoms Musculoskeletal: Joint Redness, Joint Pain, Joint Swelling Skin: Cellulitis Neurological: No Symptoms Endocrine: No Symptoms Hematologic/Lymphatic: No Symptoms Immunological/Allergic: No Symptoms - Past Medical History Pertinent Past Medical History: Yes Neurological History: No Pertinent History ENT History: No Pertinent History Cardiac History: Deep Vein Thrombosis, High Cholesterol, Hypertension Respiratory History: CHF Endocrine Medical History: Diabetes Type II Musculoskeletal History: Rheumatoid Arthritis GI Medical History: No Pertinent History History: No Pertinent History Psycho-Social History: No Pertinent History Female Reproductive Disorders: No Pertinent History Other Medical History: BURSITIS TO BOTH SHOULDERS, NEUROPATHY THROUGHOUT HER BODY - Past Surgical History Past Surgical History: Yes Neuro Surgical History: No Pertinent History Cardiac: No Pertinent History Respiratory: No Pertinent History Gastrointestinal: Other Genitourinary: No Pertinent History Musculoskeletal: No Pertinent History Female Surgical History: Tubal Ligation, Other Other Surgical History: d & c, (rectal surgery x3, cyst removed from rectum). cyst removed from pancreas - Social History Smoking Status: Never smoker Exposure to second hand smoke: No Drug Use: none Patient Lives Alone: No Significant Family History: no pertinent family hx - Nursing Vital Signs Nursing Vital Signs: Initial Vital Signs Temperature 97.9 F 04/10/22 12:47 Pulse Rate 79 04/10/22 12:47 Respiratory Rate 19 04/10/22 12:47 Blood Pressure 151/78 04/10/22 12:47 O2 Sat by Pulse Oximetry 97 04/10/22 12:47 Pain Scale Pain Intensity 7 - Physical Exam General Appearance: no apparent distress, alert Eye Exam: PERRL/EOMI Ears, Nose, Throat Exam: normal ENT inspection Neck Exam: normal inspection, full range of motion Respiratory Exam: normal breath sounds, lungs clear Cardiovascular Exam: regular rate/rhythm, normal peripheral pulses Back Exam: normal inspection Extremity Exam: pelvis stable, joint swelling (Left index finger middle phalanx redness, swelling, restricted range of motion at proximal and distal phalanx bec ause of swelling. Intact distal neurovascular and cap refill less than 3 seconds. Streaking going to the hand/forearm. Warm and tender to touch.), tenderness (Left index with no signs of trauma) Neurologic Exam: alert, oriented x 3, cooperative Skin Exam: normal color SpO2 Interpretation: normal SpO2: 97 O2 Delivery: Room Air Ordered Tests: Active Orders 24 hr Category Date Time Status HAND (MINIMUM 3 VIEWS) Stat Exams 04/10/22 13:38 Taken Medication Summary Discontinued Medications Generic Name Dose Route Start Last Admin Trade Name Sengq PRN Reason Stop Dose Admin Ceftriaxone Sodium 1,000 mg 04/10/22 13:16 04/10/22 13:43 Ceftriaxone Sodium 1000 Mg Inj Vial IM 04/10/22 13:17 1,000 mg STAT ONE Administration Ceftriaxone Sodium Confirm 04/10/22 13:39 Ceftriaxone Sodium 1000 Mg Inj Vial Administered 04/10/22 13:40 Dose 1,000 mg .ROUTE .STK-MED ONE Clindamycin HCl 300 mg 04/10/22 13:16 04/10/22 13:43 Clindamycin Hcl 150 Mg Capsule PO 04/10/22 13:17 300 mg STAT ONE Administration Clindamycin HCl Confirm 04/10/22 13:39 Clindamycin Hcl 150 Mg Capsule Administered 04/10/22 13:40 Dose 300 mg .ROUTE .STK-MED ONE Lidocaine HCl Confirm 04/10/22 13:40 Lidocaine Hcl 1% 20 Ml Mdv 20 Ml Ml Administered 04/10/22 13:41 Dose 2 ml .ROUTE .STK-MED ONE Lidocaine HCl 2.1 ml 04/10/22 13:40 04/10/22 13:44 Lidocaine Hcl 1% 20 Ml Mdv 20 Ml Ml IJ 04/10/22 13:41 2.1 ml STAT ONE Administration Oxycodone/Acetaminophen 1 tab 04/10/22 13:16 04/10/22 13:43 Oxycodone Hcl/Apap 5 Mg/325 Mg Tablet PO 04/10/22 13:17 1 tab STAT ONE Administration Oxycodone/Acetaminophen Confirm 04/10/22 13:39 Oxycodone Hcl/Apap 5 Mg/325 Mg Tablet Administered 04/10/22 13:40 Dose 1 tab .ROUTE .STK-MED ONE - Progress Progress: improved Progress Note: 04/10/22 13:57 She is given symptomatic treatment for pain. Given a shot of Rocephin and started on clindamycin. X-rays negative for any acute fracture or dislocation. Recommended taking Tylenol/ibuprofen outpatient follow-up tomorrow for reevaluation. Discussed signs symptoms of worsening needing return to ER which she seems understanding. Counseled pt/family regarding: diagnosis, need for follow-up, rad results - Departure Departure Disposition: Home Clinical Impression: Cellulitis of finger of left hand Condition: Stable Critical Care Time: No Referrals: ROB HERNANDEZ MD [Primary Care Provider] - Follow up/PCP as directed (Tomorrow for reevaluation) Instructions: Cellulitis (Skin Infection), Adult (DC) Additional Instructions: Take Tylenol/ibuprofen as needed for pain. Follow-up with primary care for reevaluation tomorrow. Keep it elevated. Avoid exertional work. Return to ER for increased swelling, bluish discoloration, fever chills etc. Prescriptions: clindamycin HCL [Clindamycin HCl] 300 mg PO QID 7 Days #28 cap
[2022-04-10 14:16] VITALS: BP 139/67; PULSE 76
== END 2022-04-10 14:16 | disposition home or self-care (01) ==
LOC: ED 12:46
DX: L03.012 Cellulitis of left finger (principal); M79.645 Pain in left finger(s); E78.5 Hyperlipidemia, unspecified; I10 Essential (primary) hypertension; E11.9 Type 2 diabetes mellitus without complications; Z79.4 Long term (current) use of insulin; Z79.891 Long term (current) use of opiate analgesic; Z79.899 Other long term (current) drug therapy; Z28.310 Unvaccinated for COVID-19
CPT/HCPCS: 73130; 96372; 99283; J0696; A9270-GY

== ENCOUNTER 2022-07-04 10:48 | Inpatient (IN) | payer OTHER ==
--- NOTE | 2022-07-04 11:35 | ERPHSYRPT ---
- History of Present Illness Time Seen by Provider: 07/04/22 11:35 Source: patient, family Exam Limitations: no limitations Patient Subjective Stated Complaint: R lower leg wound, diabetic Triage Nursing Assessment: pt to ED c/o wounds to right lower anterior leg. pt states she is a diabetic and noticed wounds appearing about 1 week ago, she cove red with bandaiges and applied triple antibiotic ointment but has allergy to adhesive tape. when removing bandaids she pulled off approx 3 cm skin. pt states she does not feel much in her legs but does have pain with palpation. noted bilateral lower leg swelling and R lower leg is red and warm. afebrile on arrival. Physician History: pt is 57 yr old female with onset of ulceration right lower anterior leg and increased swelling redness and pain. has DM with PN complicating her condition. Has bilateral LE swelling chronically. sensation is intact distally but decreased in stocking pattern. Chest clear. Ht reg without M. Abd soft nontender without mass . Ext have good pulses DP and PT bilaterally. Neg homans bilaterally. No Hx PE per pt. But nursing Hx and pt Hx reveal prior DVT. Hx by independent interview with grandson as well collaborated as above. Ordered, reviewed and discussed with pt. CBC, CMP, UA and US venous to rule out DVT. Method of Injury: unknown Occurred: last week Quality: constant Severity of Pain-Max: moderate Severity of Pain-Current: moderate Allergies/Adverse Reactions: adhesive tape Adverse Reaction (Intermediate, Verified 07/04/22 11:12) Home Medications: Lisinopril 20 mg [Zestril 20 MG] 40 mg PO DAILY 08/25/12 [History] Furosemide [Lasix] 40 mg PO DAILY PRN PRN 10/06/13 [History] Atorvastatin Calcium [Lipitor 20MG Tablet] 20 mg PO HS 06/11/17 [History] Gabapentin [Neurontin] 600 mg PO TID 06/11/17 [History] Insulin Glargine,Hum.rec.anlog [Basaglar Kwikpen U-100] 80 unit SQ HS 06/11/17 [History] Potassium Chloride Tab* [Klor Con] 20 meq PO DAILY PRN PRN 06/11/17 [History] Buprenorphine HCl [Belbuca] 600 mcg BC Q12H 07/31/17 [History] Omeprazole 20 MG [Prilosec 20 mg] 20 mg PO DAILY 07/31/17 [History] Insulin Lispro [Admelog Solostar] 1 unit SQ UD 07/22/20 [History] Hx Tetanus, Diphtheria Vaccination/Date Given: Yes Hx Influenza Vaccination/Date Given: Yes Hx Pneumococcal Vaccination/Date Given: No Immunizations Up to Date: Yes Travel Risk - International Travel Have you traveled outside of the country in past 3 weeks: No - Coronavirus Screening Are you exhibiting any of the following symptoms?: No Close contact with a COVID-19 positive Pt in past 14-21 Days: No - Vaccine Status Have you recieved a Covid-19 vaccination: No - Review of Systems Constitutional: No Fever, No Chills Eyes: No Symptoms Ears, Nose, & Throat: No Symptoms Respiratory: No Cough, No Dyspnea Cardiac: Edema, No Chest Pain, No Syncope Abdominal/Gastrointestinal: No Abdominal Pain, No Nausea, No Vomiting, No Diarrhea Genitourinary Symptoms: No Dysuria Musculoskeletal: No Back Pain, No Neck Pain Skin: Cellulitis, Skin Lesions (ulcers RLE), No Rash Neurological: No Dizziness, No Focal Weakness, No Sensory Changes Psychological: No Symptoms Endocrine: No Symptoms Hematologic/Lymphatic: No Symptoms Immunological/Allergic: No Symptoms All Other Systems: Reviewed and Negative - Past Medical History Pertinent Past Medical History: Yes Neurological History: No Pertinent History ENT History: No Pertinent History Cardiac History: Deep Vein Thrombosis, High Cholesterol, Hypertension Respiratory History: CHF Endocrine Medical History: Diabetes Type II Musculoskeletal History: Rheumatoid Arthritis GI Medical History: No Pertinent History History: No Pertinent History Psycho-Social History: No Pertinent History Female Reproductive Disorders: No Pertinent History Other Medical History: BURSITIS TO BOTH SHOULDERS, NEUROPATHY THROUGHOUT HER BODY - Past Surgical History Past Surgical History: Yes Neuro Surgical History: No Pertinent History Cardiac: No Pertinent History Respiratory: No Pertinent History Gastrointestinal: Other Genitourinary: No Pertinent History Musculoskeletal: No Pertinent History Female Surgical History: Tubal Ligation, Other Other Surgical History: d & c, (rectal surgery x3, cyst removed from rectum). cyst removed from pancreas - Social History Smoking Status: Never smoker Exposure to second hand smoke: No Drug Use: none Patient Lives Alone: No Significant Family History: no pertinent family hx - Nursing Vital Signs Nursing Vital Signs: Initial Vital Signs Temperature 98.1 F 07/04/22 11:14 Pulse Rate 80 07/04/22 11:14 Respiratory Rate 22 07/04/22 11:14 Blood Pressure 143/66 07/04/22 11:14 O2 Sat by Pulse Oximetry 95 07/04/22 11:14 Pain Scale Pain Intensity 0 - Physical Exam General Appearance: no apparent distress, alert Eyes, Ears, Nose, Throat Exam: moist mucous membranes Neck Exam: non-tender, supple Cardiovascular/Respiratory Exam: chest non-tender, normal breath sounds, regular rate/rhythm, heart sounds normal, no JVD, no respiratory distress Gastrointestinal/Abdominal Exam: non-tender, guarding Back Exam: normal inspection, No vertebral tenderness Hips Exam: bilateral: non-tender, normal inspection, normal range of motion, no evidence of injury Legs Exam: right leg: pain, swelling, bilateral leg: non-tender, normal range of motion, no evidence of injury Knees Exam: bilateral knee: non-tender, normal inspection, normal range of motion, no evidence of injury Ankle Exam: bilateral ankle: non-tender, normal inspection, normal range of motion, no evidence of injury Foot Exam: bilateral foot: non-tender, normal inspection, normal range of motion, no evidence of injury DTR - Lower Extremities Exam: knee (R): 2+, knee (L): 2+, ankle (R): 2+, ankle (L): 2+ Neuro/Tendon Exam: normal sensation, normal motor functions Mental Status Exam: alert, oriented x 3, cooperative Skin Exam: normal color, warm, dry SpO2 Interpretation: normal SpO2: 95 O2 Delivery: Room Air - Course Nursing assessment & vital signs reviewed: Yes - Radiology Ultrasound Exam Right Venous Lower Extremity Ultrasound: tele radiology report, negative, Other (No DVT per US review from radiology) Ordered Tests: Active Orders 24 hr Category Date Time Status IV Insertion STAT Care 07/04/22 11:45 Active POCT Glucose Check STAT Care 07/04/22 14:10 Active VENOUS UNILAT/LIMITED EXTREMIT [US] Stat Exams 07/04/22 11:46 Completed CBC W DIFF Stat Lab 07/04/22 11:50 Completed CMP Stat Lab 07/04/22 11:50 Completed POCT GLUCOSE Stat Lab 07/04/22 14:08 Completed UA W/RFX UR CULTURE Stat Lab 07/04/22 11:46 Completed Medication Summary Generic Name Dose Route Start Last Admin Trade Name Freq PRN Reason Stop Dose Admin Sodium Chloride 1,000 mls @ 100 mls/hr 07/04/22 11:45 07/04/22 11:49 Sodium Chloride 0.9% 1000 Ml IV 08/03/22 11:44 100 mls/hr .Q10H LUCÍA Administration Discontinued Medications Generic Name Dose Route Start Last Admin Trade Name Lori PRN Reason Stop Dose Admin Hydromorphone HCl 1 mg 07/04/22 13:21 07/04/22 13:36 Hydromorphone 1 Mg/1ml Inj 1 Mg/Ml Syringe IV 07/04/22 13:22 1 mg STAT ONE Administration Hydromorphone HCl Confirm 07/04/22 13:32 Hydromorphone 1 Mg/1ml Inj 1 Mg/Ml Syringe Administered 07/04/22 13:33 Dose 1 mg .ROUTE .STK-MED ONE Hydromorphone HCl 1 mg 07/04/22 16:00 Hydromorphone 1 Mg/1ml Inj 1 Mg/Ml Syringe IV 07/04/22 16:01 STAT ONE Ceftriaxone Sodium/Dextrose 1 g in 50 mls @ 100 mls/hr 07/04/22 11:47 07/04/22 12:42 Rocephin 1 Gm-D5w 50 Ml Bag IV 07/04/22 12:16 Infused STAT STA Infusion Ceftriaxone Sodium/Dextrose Confirm 07/04/22 11:55 Rocephin 1 Gm-D5w 50 Ml Bag Administered 07/04/22 11:56 Dose 1 g in 50 mls @ ud IV .STK-MED ONE Insulin Human Regular 10 unit 07/04/22 13:20 07/04/22 13:37 Insulin Regular, Human 1 Unit IV 07/04/22 13:21 10 unit STAT ONE Administration Insulin Human Regular Confirm 07/04/22 13:32 Insulin Regular, Human 1 Unit Administered 07/04/22 13:33 Dose 10 unit .ROUTE .STK-MED ONE Insulin Human Regular 10 unit 07/04/22 14:23 07/04/22 14:26 Insulin Regular, Human 1 Unit IV 07/04/22 14:24 Not Given STAT ONE Insulin Human Regular 10 unit 07/04/22 14:21 07/04/22 14:30 Insulin Regular, Human 1 Unit IV 07/04/22 14:22 10 unit STAT ONE Administration Insulin Human Regular Confirm 07/04/22 14:28 Insulin Regular, Human 1 Unit Administered 07/04/22 14:29 Dose 10 unit .ROUTE .STK-[employer] ONE Ketorolac Tromethamine 30 mg 07/04/22 11:45 07/04/22 11:49 Ketorolac Tromethamine 30 Mg/Ml Inj IV 07/04/22 11:46 30 mg STAT ONE Administration Ketorolac Tromethamine Confirm 07/04/22 11:48 Ketorolac Tromethamine 30 Mg/Ml Inj Administered 07/04/22 11:49 Dose 30 mg .ROUTE .Diet TV-[employer] ONE Lab/Rad Data: Laboratory Result Diagrams 07/04/22 11:50 07/04/22 11:50 Laboratory Results 07/04/22 07/04/22 07/04/22 Range/Units 14:26 14:08 11:50 WBC (4.0-10.5) x10^3/uL RBC (4.1-5.4) x10^6/uL Hgb (12.0-16.0) g/dL Hct (35-47) % MCV (78-100) fL MCH (26-32) pg MCHC (32-36) g/dL RDW (11.5-14.0) % Plt Count (150-450) x10^3/uL MPV (7.5-11.0) fL Gran % (36.0-66.0) % Immature Gran % (Auto) (0.00-0.4) % Nucleat RBC Rel Count (0.00-0.1) % Eos # (Auto) (0-0.5) x10^3/uL Immature Gran # (Auto) (0.00-0.03) x10^3u/L Absolute Lymphs (auto) (1.0-4.6) x10^3/uL Absolute Monos (auto) (0.0-1.3) x10^3/uL Absolute Nucleated RBC (0.00-0.01) x10^3u/L Lymphocytes % (24.0-44.0) % Monocytes % (0.0-12.0) % Eosinophils % (0.00-5.0) % Basophils % (0.0-0.4) % Absolute Granulocytes (1.4-6.9) x10^3/uL Basophils # (0-0.4) x10^3/uL Sodium 134 L (137-145) mmol/L Potassium 4.2 (3.5-5.1) mmol/L Chloride 91 L (98-107) mmol/L Carbon Dioxide 35 H (22-30) mmol/L Anion Gap 11.5 (5-15) MEQ/L BUN 16 (7-17) mg/dL Creatinine 0.91 (0.52-1.04) mg/dL Estimated GFR > 60.0 ML/MIN Glucose 661 H* (74-106) mg/dL POC Glucometer 534 H* (50 to 500) mg/dL Calcium 9.3 (8.4-10.2) mg/dL Total Bilirubin 0.90 (0.2-1.3) mg/dL AST 31 (14-36) U/L ALT 24 (0-35) U/L Alkaline Phosphatase 147 H (38-126) U/L Serum Total Protein 8.1 (6.3-8.2) g/dL Albumin 4.1 (3.5-5.0) g/dL Urine Color (Yellow) Urine Appearance (Clear) Urine pH (4.6-8.0) Ur Specific [place] (1.005-1.030) Urine Protein (Negative) Urine Glucose (UA) (Negative) mg/dL Urine Ketones (Negative) Urine Blood (Negative) Urine Nitrite (Negative) Urine Bilirubin (Negative) Urine Urobilinogen (0.2) mg/dL Ur Leukocyte Esterase (Negative) U Hyaline Cast (Auto) (0-2) /LPF Urine Microscopic RBC (0-5) /HPF Urine Microscopic WBC (0-5) /HPF Ur Epithelial Cells (None Seen) /HPF Urine Bacteria (None Seen) /HPF Urine Culture Reflexed (NO) Influenza Type A Ag NEGATIVE (NEGATIVE) Influenza Type B Ag NEGATIVE (NEGATIVE) RSV (PCR) NEGATIVE (Negative) SARS-CoV-2 (PCR) NEGATIVE (NEGATIVE) Slides for Path Review 07/04/22 07/04/22 Range/Units 11:50 11:46 WBC 4.7 (4.0-10.5) x10^3/uL RBC 4.67 (4.1-5.4) x10^6/uL Hgb 13.2 (12.0-16.0) g/dL Hct 41.2 (35-47) % MCV 88.2 (78-100) fL MCH 28.3 (26-32) pg MCHC 32.0 (32-36) g/dL RDW 14.0 (11.5-14.0) % Plt Count 99 L (150-450) x10^3/uL MPV 11.6 H (7.5-11.0) fL Gran % 65.4 (36.0-66.0) % Immature Gran % (Auto) 0.0 (0.00-0.4) % Nucleat RBC Rel Count 0.0 (0.00-0.1) % Eos # (Auto) 0.13 (0-0.5) x10^3/uL Immature Gran # (Auto) 0.00 (0.00-0.03) x10^3u/L Absolute Lymphs (auto) 0.98 L (1.0-4.6) x10^3/uL Absolute Monos (auto) 0.47 (0.0-1.3) x10^3/uL Absolute Nucleated RBC 0.00 (0.00-0.01) x10^3u/L Lymphocytes % 21.1 L (24.0-44.0) % Monocytes % 10.1 (0.0-12.0) % Eosinophils % 2.8 (0.00-5.0) % Basophils % 0.6 (0.0-0.4) % Absolute Granulocytes 3.04 (1.4-6.9) x10^3/uL Basophils # 0.03 (0-0.4) x10^3/uL Sodium (137-145) mmol/L Potassium (3.5-5.1) mmol/L Chloride (98-107) mmol/L Carbon Dioxide (22-30) mmol/L Anion Gap (5-15) MEQ/L BUN (7-17) mg/dL Creatinine (0.52-1.04) mg/dL Estimated GFR ML/MIN Glucose (74-106) mg/dL POC Glucometer (50 to 500) mg/dL Calcium (8.4-10.2) mg/dL Total Bilirubin (0.2-1.3) mg/dL AST (14-36) U/L ALT (0-35) U/L Alkaline Phosphatase (38-126) U/L Serum Total Protein (6.3-8.2) g/dL Albumin (3.5-5.0) g/dL Urine Color Yellow (Yellow) Urine Appearance Clear (Clear) Urine pH 5.0 (4.6-8.0) Ur Specific [place] 1.025 (1.005-1.030) Urine Protein Negative (Negative) Urine Glucose (UA) >=1000 A (Negative) mg/dL Urine Ketones Negative (Negative) Urine Blood Negative (Negative) Urine Nitrite Negative (Negative) Urine Bilirubin Negative (Negative) Urine Urobilinogen 0.2 (0.2) mg/dL Ur Leukocyte Esterase Negative (Negative) U Hyaline Cast (Auto) NONE SEEN (0-2) /LPF Urine Microscopic RBC 0-2 (0-5) /HPF Urine Microscopic WBC 6-10 A (0-5) /HPF Ur Epithelial Cells None Seen (None Seen) /HPF Urine Bacteria None Seen (None Seen) /HPF Urine Culture Reflexed NO (NO) Influenza Type A Ag (NEGATIVE) Influenza Type B Ag (NEGATIVE) RSV (PCR) (Negative) SARS-CoV-2 (PCR) (NEGATIVE) Slides for Path Review YES - Progress Progress: improved, re-examined Progress Note: 07/04/22 15:19 discussed results with pt and family and they agree best to come into hospital to control DM and infection. Call placed to Dr. Hernandez for admission consultation and we are awaiting that return call. 07/04/22 16:[address] Hernandez but since he is leaving [facility] was best to discuss and consult with Dr. Shahid and we did so and she accepted her for Tx uncontrolled DM and right LE cellulitis. and pt advised and discussed and she agrees as well. Discussed with : Margarita Counseled pt/family regarding: lab results, diagnosis, need for follow-up, rad results - Departure Departure Disposition: Observation Clinical Impression: Uncontrolled diabetes mellitus, Cellulitis LLE with Diabetic Ulcer Clinical Impression: (Ruled Out): celluitis left LE with Diabet/ulceration Condition: Good Critical Care Time: No Referrals: ROB HERNANDEZ MD [Primary Care Provider] - Follow up/PCP as directed
[2022-07-04] MEDS ORDERED: TORAdol 30 mg Injection IV ONE (11:45)
[2022-07-04] MEDS ORDERED: ROCEPHIN 1 Gm-D5w 50 ml Bag** 1 G/50 ML IVPB IV STA (11:47)
[2022-07-04] MEDS ORDERED: TORAdol 30 mg Injection ONE (11:48)
[2022-07-04] MEDS: Sodium Chloride 0.9% 1000 ML 1,000 ML IV SCH (11:49)
[2022-07-04] MEDS ORDERED: ROCEPHIN 1 Gm-D5w 50 ml Bag** 1 G/50 ML IVPB IV ONE (11:55)
[2022-07-04 12:02] LABS: Absolute Neutrophil Ct (ANC) 3.04 x10^3/uL (1.4-6.9); BASOPHIL % 0.6 % (0.0-0.4); Basophil (Absolute #) 0.03 x10^3/uL (0-0.4); Eosinophil % 2.8 % (0.00-5.0); Eosinophil (Absolute #) 0.13 x10^3/uL (0-0.5); Hematocrit 41.2 % (35-47); Hemoglobin 13.2 g/dL (12.0-16.0); Lymphocyte (Absolute #) 0.98 x10^3/uL (1.0-4.6); Lymphocytes % 21.1 % (24.0-44.0); Mean Cell Volume 88.2 fL (78-100); Mean Corpuscular Hemoglobin 28.3 pg (26-32); Mean Platelet Volume 11.6 fL (7.5-11.0); Monocyte (Absolute #) 0.47 x10^3/uL (0.0-1.3); Monocytes % 10.1 % (0.0-12.0); Neutrophil % 65.4 % (36.0-66.0); Platelet Count 99 x10^3/uL (150-450); Red Blood Count 4.67 x10^6/uL (4.1-5.4); White Blood Count 4.7 x10^3/uL (4.0-10.5)
[2022-07-04 12:05] LABS: Appearance Clear (Clear); Bacteria None Seen /HPF (None Seen); Bilirubin Negative (Negative); Blood Negative (Negative); Epithelial Cells None Seen /HPF (None Seen); Glucose, Urine >=1000 mg/dL (Negative); Hyaline Casts NONE SEEN /LPF (0-2); Ketones Negative (Negative); Leukocyte Esterase Negative (Negative); Nitrite Negative (Negative); Protein,Urine Dip Negative (Negative); RBC 0-2 /HPF (0-5); Specific Gravity 1.025 (1.005-1.030); Urobilinogen 0.2 mg/dL (0.2)
[2022-07-04 12:07] LABS: ADD URINE CULTURE? NO (NO)
[2022-07-04 12:16] LABS: ALBUMIN 4.1 g/dL (3.5-5.0); ALKALINE PHOSPHATASE 147 U/L (38-126); ANION GAP 11.5 MEQ/L (5-15); BLOOD UREA NITROGEN 16 mg/dL (7-17); CHLORIDE 91 mmol/L (98-107); Calcium 9.3 mg/dL (8.4-10.2); Carbon Dioxide 35 mmol/L (22-30); Creatinine 1 0.91 mg/dL (0.52-1.04); EST GLOMERULAR FILTRATION RATE > 60.0 ML/MIN; Potassium 4.2 mmol/L (3.5-5.1); SGOT/AST 31 U/L (14-36); SGPT/ALT 24 U/L (0-35); SODIUM 134 mmol/L (137-145); Total Protein 8.1 g/dL (6.3-8.2)
[2022-07-04 12:28] LABS: Glucose 661 mg/dL (74-106)
--- NOTE | 2022-07-04 12:29 | XRAY ---
Indication: Pain and swelling. Two-dimensional sonogram and color Doppler imaging of the major venous vessels of the right leg performed. Comparison: None No thrombus seen in the examined deep venous vessels of the right leg including greater saphenous vein. Veins demonstrate normal compressibility. Venous waveforms are normal with and without augmentation. Impression: Right leg negative for DVT.
[2022-07-04] MEDS ORDERED: HUMULIN R IV ONE ×3 (13:20→14:23)
[2022-07-04] MEDS ORDERED: Hydromorphone 1 mg/ml Injection IV ONE ×2 (13:21→16:00)
[2022-07-04] MEDS ORDERED: Hydromorphone 1 mg/ml Injection ONE ×2 (13:32→16:15)
[2022-07-04] MEDS ORDERED: HUMULIN R ONE ×2 (13:32→14:28)
[2022-07-04 14:23] LABS: Slide Review 1 YES
[2022-07-04 15:09] LABS: INFLUENZA A NEGATIVE (NEGATIVE); INFLUENZA B NEGATIVE (NEGATIVE); RESPIRATORY SYNCTIAL VIRUS NEGATIVE (Negative); SARS-CoV-2 Xpert Express NEGATIVE (NEGATIVE)
[2022-07-04] MEDS ORDERED: TYLENOL 325 MG PO PRN (16:15)
[2022-07-04] MEDS: ENOXAPARIN SODIUM SQ SCH (18:03)
[2022-07-04] MEDS: HUMULIN R SQ PRN ×2 (18:04→22:29)
[2022-07-04] MEDS: Hydromorphone 1 mg/ml Injection IV PRN ×2 (18:05→22:30)
[2022-07-04] MEDS ORDERED: Lantus Insulin SQ SCH (22:00)
[2022-07-04] MEDS: Pepcid 20 MG VIAL IV SCH (22:30)
[2022-07-04] MEDS: NEURONTIN PO SCH (22:30)
[2022-07-05] MEDS: Sodium Chloride 0.9% 1000 ML 1,000 ML IV SCH ×4 (01:52→20:26)
[2022-07-05 06:07] LABS: Absolute Neutrophil Ct (ANC) 2.24 x10^3/uL (1.4-6.9); BASOPHIL % 0.5 % (0.0-0.4); Basophil (Absolute #) 0.02 x10^3/uL (0-0.4); Eosinophil % 3.8 % (0.00-5.0); Eosinophil (Absolute #) 0.16 x10^3/uL (0-0.5); Hematocrit 38.6 % (35-47); Hemoglobin 12.3 g/dL (12.0-16.0); IMMATURE GRAN # 0.02 x10^3u/L (0.00-0.03); IMMATURE GRAN % 0.5 % (0.00-0.4); Lymphocyte (Absolute #) 1.32 x10^3/uL (1.0-4.6); Lymphocytes % 31.4 % (24.0-44.0); Mean Cell Volume 88.9 fL (78-100); Mean Corpuscular Hemoglobin 28.3 pg (26-32); Mean Corpuscular Hgb Concent. 31.9 g/dL (32-36); Mean Platelet Volume 10.8 fL (7.5-11.0); Monocyte (Absolute #) 0.44 x10^3/uL (0.0-1.3); Monocytes % 10.5 % (0.0-12.0); Neutrophil % 53.3 % (36.0-66.0); Platelet Count 83 x10^3/uL (150-450); Red Blood Count 4.34 x10^6/uL (4.1-5.4); Red Cell Distribution Width 14.1 % (11.5-14.0); White Blood Count 4.2 x10^3/uL (4.0-10.5)
[2022-07-05 06:42] LABS: ALBUMIN 3.2 g/dL (3.5-5.0); ALKALINE PHOSPHATASE 102 U/L (38-126); ANION GAP 5.6 MEQ/L (5-15); BLOOD UREA NITROGEN 20 mg/dL (7-17); CHLORIDE 101 mmol/L (98-107); Calcium 8.6 mg/dL (8.4-10.2); Carbon Dioxide 37 mmol/L (22-30); Creatinine 1 0.99 mg/dL (0.52-1.04); EST GLOMERULAR FILTRATION RATE > 60.0 ML/MIN; Glucose 287 mg/dL (74-106); Potassium 3.7 mmol/L (3.5-5.1); SGOT/AST 29 U/L (14-36); SGPT/ALT 20 U/L (0-35); SODIUM 140 mmol/L (137-145); Total Protein 6.7 g/dL (6.3-8.2)
[2022-07-05 06:55] LABS: Slide Review 1 YES
[2022-07-05] MEDS: HUMULIN R SQ PRN ×4 (08:56→21:25)
[2022-07-05] MEDS: Hydromorphone 1 mg/ml Injection IV PRN ×3 (09:04→20:21)
[2022-07-05] MEDS: Pepcid 20 MG VIAL IV SCH ×2 (09:36→21:24)
[2022-07-05] MEDS: ENOXAPARIN SODIUM SQ SCH (09:38)
[2022-07-05] MEDS: NEURONTIN PO SCH ×2 (09:43→20:21)
[2022-07-05] MEDS: Lasix 40 MG PO SCH (09:43)
[2022-07-05] MEDS: ROCEPHIN 1 Gm-D5w 50 ml Bag** 1 G/50 ML IVPB IV SCH (09:58)
[2022-07-05] MEDS ORDERED: Klor Con PO SCH (10:00)
[2022-07-05] MEDS ORDERED: PROTONIX 40 MG IV IV SCH (10:00)
[2022-07-05] MEDS ORDERED: Zestril 20 MG PO SCH (10:00)
[2022-07-05] MEDS ORDERED: VENTOLIN COMMON CANISTER IH PRN (14:01)
[2022-07-05] MEDS: PERCOCET TABLET 5/325MG PO SCH ×2 (14:55→21:23)
[2022-07-05] MEDS: ZOCOR 20MG PO SCH (14:55)
--- NOTE | 2022-07-05 17:13 | PCM.HP ---
History of Present Illness - Chief Complaint Chief Complaint: UNCONTROLLED DIABETES MELLITUS, LLE CELLULITIS, DIABETIC ULCER History of Present Illness: is a 57 year old female pt of Dr. Son with hx DVT, HLD, HTN, CHF, DM II, and RA who was admitted through ER with RLE cellulitis/ulcer with uncontrolled DM and thrombocytopenia. Pt noticed areas on her leg over epa 1 week, and put a bandaid on the area of anterior R lower leg. When she took the bandaid off, said it took skin with it, forming current area of concern. She noticed inccreased redness and pain (02/08 yesterday) and came to ER. Pain is /10 today with her pain meds. Denies fever. Is on rocephin day #2. - Review of Systems Abdominal/Gastrointestinal: Vomiting (x2 last week) Genitourinary Symptoms: Vaginal Itching Musculoskeletal: Arthralgias (shoulder pain, being tx by Dr. Charles) Skin: Cellulitis, Other (ulceration) Neurological: Dizziness Psychological: Anxiety, No Suicidal Ideations (had remotely, none recently) Medications & Allergies Home Medications: Home Medication List Lisinopril 20 mg [Zestril 20 MG] 20 mg PO BID 08/25/12 [History Confirmed 07/04/22] Furosemide [Lasix] 40 mg PO DAILY 10/06/13 [History Confirmed 07/04/22] Atorvastatin Calcium [Lipitor 20MG Tablet] 20 mg PO DAILY 06/11/17 [History Confirmed 07/04/22] Insulin Glargine,Hum.rec.anlog [Basaglekta [place] U-100] 80 unit SQ BID 06/11/17 [History Confirmed 07/04/22] Potassium Chloride Tab* [Klor Con] 10 meq PO DAILY 06/11/17 [History Confirmed 07/04/22] Buprenorphine HCl [Belbuca] 750 mcg PO [id number],199907/31/17 [History Confirmed 07/04/22] Omeprazole 20 MG [Prilosec 20 mg] 40 mg PO BID 07/31/17 [History Confirmed 07/04/22] Insulin Lispro [Admelog Solostar] 0 unit SQ ACHS 07/22/20 [History Confirmed 07/04/22] Albuterol Sulfate [Albuterol Sulfate Hfa] 1 puff IH Q4HPRN PRN 07/04/22 [History Confirmed 07/04/22] Gabapentin Enacarbil [Horizant] 600 mg PO 799,199907/04/22 [History Confirmed 07/04/22] Oxycodone HCl/Acetaminophen [Percocet 5-325 mg Tablet] 1 each PO TID 07/04/22 [History Confirmed 07/04/22] Pramipexole Di-HCl 0.5 mg [Mirapex 0.5 MG Tablet] 0.5 mg PO BID 07/04/22 [History Confirmed 07/04/22] Allergies/Adverse Reactions: Allergies Allergy/AdvReac Type Severity Reaction Status Date / Time adhesive tape AdvReac Intermediate Verified 07/04/22 17:05 - Past Medical History Past Medical History: Yes Neurological History: No Pertinent History ENT History: No Pertinent History Cardiac History: Deep Vein Thrombosis, High Cholesterol, Hypertension Respiratory History: CHF Endocrine Medical History: Diabetes Type II Musculoskelatal History: Rheumatoid Arthritis GI Medical History: No Pertinent History History: No Pertinent History Pyscho-Social History: No Pertinent History Reproductive Disorders: No Pertinent History Comment: BURSITIS TO BOTH SHOULDERS, NEUROPATHY THROUGHOUT HER BODY - Female History Are you now?: No - Past Surgical History Past Surgical History: Yes Neuro Surgical History: No Pertinent History Cardiac History: No Pertinent History Respiratory Surgery: No Pertinent History GI Surgical History: Other Genitourinary Surgical Hx: No Pertinent History Musculskeletal Surgical Hx: No Pertinent History Female Surgical History: Tubal Ligation, Other Other Surgical History: d & c, (rectal surgery x3, cyst removed from rectum). cyst removed from pancreas - Social History Smoking Status: Never smoker Exposure to second hand smoke: Yes Alcohol: None Drug Use: none Significant Family History: no pertinent family hx - Physical Exam Vital Signs: Vital Signs - 24 hr Temp Pulse Resp BP Pulse Ox 07/05/22 16:16 95 07/05/22 15:48 80 16 94 L 07/05/22 12:00 97.3 F 79 17 124/60 97 07/05/22 08:00 97.1 F 75 18 119/66 97 07/05/22 04:00 97 F 62 16 107/53 91 L 07/05/22 00:00 67 16 07/04/22 20:00 97.2 F 67 18 125/60 94 L General Appearance: no apparent distress, obese Neurologic Exam: alert, oriented x 3, cooperative Eye Exam: eyes nml inspection Ears, Nose, Throat Exam: moist mucous membranes Neck Exam: normal inspection Respiratory Exam: normal breath sounds, lungs clear, No crackles/rales, No rhonchi, No wheezing Cardiovascular Exam: regular rate/rhythm, normal heart sounds, No murmur Gastrointestinal/Abdomen Exam: soft, normal bowel sounds, No tenderness, No distention, No mass, No guarding, No rebound Back Exam: normal inspection, No rash Extremity Exam: other (RLE approx 2x4cm black eschar anteriorly approx 6x10cm area of erythema surroundign it, with tiny erythematous streaking to the knee. Pedal pulses difficult to palpate bilat.) Skin Exam: warm, dry Wound Assessment: Skin/Wound Assessment Wound/Incision Assessment Start: 07/04/22 17:48 Text: Status: Active Freq: Q6H Protocol: Document 07/04/22 20:00 LB (Rec: 07/04/22 21:40 LB [id number]) Wound/Incision Assessment Right Lower Anterior Other Wound Assessment Shift Assessment Wound Type cellulitis Wound Stage Non Pressure Wound Dressing Status Changed Drainage Amount None General Appearance Open to air,Reddened Length (cm) (cm) 3 Width (cm) (cm) 2 Surrounding Tissue Bright Red Wound Photo Photo Taken No Wound/Incision Assessment Start: 07/05/22 08:00 Text: Status: Active Freq: Q6H Protocol: Document 07/05/22 14:00 DKRUEGER (Rec: 07/05/22 15:16 DKRUEGER [id number]) Wound/Incision Assessment Right Lower Anterior Other Wound Assessment Shift Assessment Wound Type cellulitis Wound Stage Non Pressure Wound Dressing Status Changed Drainage Amount None General Appearance Open to air,Reddened Length (cm) (cm) 3 Width (cm) (cm) 2 Surrounding Tissue Bright Red Wound Photo Photo Taken No Results - Labs Lab/Micro Results: Lab Results-Last 24 Hours 07/04/22 07/05/22 07/05/22 Range/Units 21:09 05:58 05:58 WBC 4.2 (4.0-10.5) x10^3/uL RBC 4.34 (4.1-5.4) x10^6/uL Hgb 12.3 (12.0-16.0) g/dL Hct 38.6 (35-47) % MCV 88.9 (78-100) fL MCH 28.3 (26-32) pg MCHC 31.9 L (32-36) g/dL RDW 14.1 H (11.5-14.0) % Plt Count 83 L (150-450) x10^3/uL MPV 10.8 (7.5-11.0) fL Gran % 53.3 (36.0-66.0) % Immature Gran % (Auto) 0.5 H (0.00-0.4) % Nucleat RBC Rel Count 0.0 (0.00-0.1) % Eos # (Auto) 0.16 (0-0.5) x10^3/uL Immature Gran # (Auto) 0.02 (0.00-0.03) x10^3u/L Absolute Lymphs (auto) 1.32 (1.0-4.6) x10^3/uL Absolute Monos (auto) 0.44 (0.0-1.3) x10^3/uL Absolute Nucleated RBC 0.00 (0.00-0.01) x10^3u/L Lymphocytes % 31.4 (24.0-44.0) % Monocytes % 10.5 (0.0-12.0) % Eosinophils % 3.8 (0.00-5.0) % Basophils % 0.5 (0.0-0.4) % Absolute Granulocytes 2.24 (1.4-6.9) x10^3/uL Basophils # 0.02 (0-0.4) x10^3/uL Sodium 140 (137-145) mmol/L Potassium 3.7 (3.5-5.1) mmol/L Chloride 101 (98-107) mmol/L Carbon Dioxide 37 H (22-30) mmol/L Anion Gap 5.6 (5-15) MEQ/L BUN 20 H (7-17) mg/dL Creatinine 0.99 (0.52-1.04) mg/dL Estimated GFR > 60.0 ML/MIN Glucose 287 H (74-106) mg/dL POC Glucometer 376 H (74 to 106) mg/dL Hemoglobin A1c (4.5-6.0) % Calcium 8.6 (8.4-10.2) mg/dL Total Bilirubin 0.50 (0.2-1.3) mg/dL AST 29 (14-36) U/L ALT 20 (0-35) U/L Alkaline Phosphatase 102 (38-126) U/L Serum Total Protein 6.7 (6.3-8.2) g/dL Albumin 3.2 L (3.5-5.0) g/dL Slides for Path Review YES 07/05/22 07/05/22 07/05/22 Range/Units 08:28 09:34 11:41 WBC (4.0-10.5) x10^3/uL RBC (4.1-5.4) x10^6/uL Hgb (12.0-16.0) g/dL Hct (35-47) % MCV (78-100) fL MCH (26-32) pg MCHC (32-36) g/dL RDW (11.5-14.0) % Plt Count (150-450) x10^3/uL MPV (7.5-11.0) fL Gran % (36.0-66.0) % Immature Gran % (Auto) (0.00-0.4) % Nucleat RBC Rel Count (0.00-0.1) % Eos # (Auto) (0-0.5) x10^3/uL Immature Gran # (Auto) (0.00-0.03) x10^3u/L Absolute Lymphs (auto) (1.0-4.6) x10^3/uL Absolute Monos (auto) (0.0-1.3) x10^3/uL Absolute Nucleated RBC (0.00-0.01) x10^3u/L Lymphocytes % (24.0-44.0) % Monocytes % (0.0-12.0) % Eosinophils % (0.00-5.0) % Basophils % (0.0-0.4) % Absolute Granulocytes (1.4-6.9) x10^3/uL Basophils # (0-0.4) x10^3/uL Sodium (137-145) mmol/L Potassium (3.5-5.1) mmol/L Chloride (98-107) mmol/L Carbon Dioxide (22-30) mmol/L Anion Gap (5-15) MEQ/L BUN (7-17) mg/dL Creatinine (0.52-1.04) mg/dL Estimated GFR ML/MIN Glucose (74-106) mg/dL POC Glucometer 216 H 288 H (74 to 106) mg/dL Hemoglobin A1c > 14.00 H (4.5-6.0) % Calcium (8.4-10.2) mg/dL Total Bilirubin (0.2-1.3) mg/dL AST (14-36) U/L ALT (0-35) U/L Alkaline Phosphatase (38-126) U/L Serum Total Protein (6.3-8.2) g/dL Albumin (3.5-5.0) g/dL Slides for Path Review - Radiology Impressions Radiology Exams & Impressions: Radiology Procedures Category Date Time Status VENOUS UNILAT/LIMITED EXTREMIT [US] Stat Exams 07/04/22 11:46 Completed - Other Procedures and Tests Respiratory Therapy 07/04/22 17:48 RT Screen per Nursing Assess ONCE 07/05/22 15:47 Respiratory Therapy Assessment DAILY Assessment/Plan (1) Cellulitis, leg Current Visit: Yes Status: Acute Qualifiers: Laterality: right Qualified Code(s): L03.115 - Cellulitis of right lower limb Assessment & Plan: on rocephin daily - she thinks it's a little better. Will continue this for now, consult PT on Thursday for possible debridement. (2) Uncontrolled diabetes mellitus Current Visit: Yes Status: Chronic Qualifiers: Diabetes mellitus type: type 2 Glycemic state: with hyperglycemia Qualified Code(s): E11.65 - Type 2 diabetes mellitus with hyperglycemia Assessment & Plan: A1c is >14. Code(s): E11.65 - TYPE 2 DIABETES MELLITUS WITH HYPERGLYCEMIA (3) Thrombocytopenia Current Visit: No Status: Chronic (4) Shoulder arthritis Current Visit: No Status: Chronic Code(s): M19.019 - PRIMARY OSTEOARTHRITIS, UNSPECIFIED SHOULDER (5) DVT prophylaxis Current Visit: Yes Status: Acute Assessment & Plan: on lovenox 40mg SQ daily.
[2022-07-05] MEDS: Zestril 20 MG PO SCH (21:24)
[2022-07-05] MEDS: Mirapex 0.5 MG Tablet PO SCH (21:24)
[2022-07-05] MEDS: Protonix 40MG Tablet PO SCH (21:24)
[2022-07-05] MEDS: Lantus Insulin SQ SCH (21:25)
[2022-07-05] MEDS ORDERED: NON-FORMULARY ITEM (Omeprazole 20 Mg [Prilosec 20 Mg] 20 MG Capsule.Dr) PO SCH (22:00)
[2022-07-06] MEDS: ENOXAPARIN SODIUM SQ SCH (07:40)
[2022-07-06] MEDS: Lantus Insulin SQ SCH ×2 (07:41→21:47)
[2022-07-06] MEDS: PERCOCET TABLET 5/325MG PO SCH ×3 (07:43→18:06)
[2022-07-06] MEDS: Klor Con PO SCH (07:43)
[2022-07-06] MEDS: ZOCOR 20MG PO SCH (07:43)
[2022-07-06] MEDS: Zestril 20 MG PO SCH ×2 (07:44→21:47)
[2022-07-06] MEDS: Protonix 40MG Tablet PO SCH ×2 (07:44→21:47)
[2022-07-06] MEDS: Lasix 40 MG PO SCH (07:44)
[2022-07-06] MEDS: Mirapex 0.5 MG Tablet PO SCH ×2 (07:44→22:11)
[2022-07-06] MEDS: Pepcid 20 MG VIAL IV SCH ×2 (07:45→21:47)
[2022-07-06 07:52] LABS: Absolute Neutrophil Ct (ANC) 1.91 x10^3/uL (1.4-6.9); BASOPHIL % 0.5 % (0.0-0.4); Basophil (Absolute #) 0.02 x10^3/uL (0-0.4); Eosinophil % 4.3 % (0.00-5.0); Eosinophil (Absolute #) 0.16 x10^3/uL (0-0.5); Hemoglobin 12.2 g/dL (12.0-16.0); IMMATURE GRAN # 0.01 x10^3u/L (0.00-0.03); IMMATURE GRAN % 0.3 % (0.00-0.4); Lymphocyte (Absolute #) 1.24 x10^3/uL (1.0-4.6); Mean Cell Volume 91.1 fL (78-100); Mean Corpuscular Hemoglobin 28.5 pg (26-32); Mean Corpuscular Hgb Concent. 31.3 g/dL (32-36); Mean Platelet Volume 11.1 fL (7.5-11.0); Monocyte (Absolute #) 0.42 x10^3/uL (0.0-1.3); Monocytes % 11.2 % (0.0-12.0); Neutrophil % 50.7 % (36.0-66.0); Platelet Count 88 x10^3/uL (150-450); Red Blood Count 4.28 x10^6/uL (4.1-5.4); Red Cell Distribution Width 14.5 % (11.5-14.0); White Blood Count 3.8 x10^3/uL (4.0-10.5)
[2022-07-06] MEDS: ROCEPHIN 1 Gm-D5w 50 ml Bag** 1 G/50 ML IVPB IV SCH (07:53)
[2022-07-06] MEDS: Zofran 4 MG/2 ML VIAL IV PRN (07:53)
[2022-07-06 08:02] LABS: ALBUMIN 3.1 g/dL (3.5-5.0); ALKALINE PHOSPHATASE 106 U/L (38-126); ANION GAP 8.1 MEQ/L (5-15); BLOOD UREA NITROGEN 22 mg/dL (7-17); CHLORIDE 105 mmol/L (98-107); Calcium 8.5 mg/dL (8.4-10.2); Carbon Dioxide 32 mmol/L (22-30); Creatinine 1 0.86 mg/dL (0.52-1.04); EST GLOMERULAR FILTRATION RATE > 60.0 ML/MIN; Glucose 246 mg/dL (74-106); Potassium 4.2 mmol/L (3.5-5.1); SGOT/AST 30 U/L (14-36); SGPT/ALT 21 U/L (0-35); SODIUM 141 mmol/L (137-145); Total Protein 6.7 g/dL (6.3-8.2)
[2022-07-06] MEDS ORDERED: PHARMACY DOSING REQUIRED: VANCOMYCIN IV STA (08:38)
[2022-07-06 08:55] LABS: Slide Review 1 YES
[2022-07-06] MEDS: NEURONTIN PO SCH ×2 (08:58→21:05)
[2022-07-06] MEDS ORDERED: NON-FORMULARY ITEM (Atorvastatin Calcium 20 MG Tab) PO SCH (10:00)
[2022-07-06] MEDS: VANCOMYCIN 1.25 GM/250 ML BAG 1.25 GM/250 ML PIGGYBACK IV SCH ×2 (10:01→21:46)
--- NOTE | 2022-07-06 11:09 | PCM.NOTE ---
Date and Time: 07/06/22 1104 Subjective Assessment: She says one of her pills makes her sleepy, then she wakes up in pain. Jeremy po. - Review of Systems Constitutional: Fatigue, No Fever Objective Exam General Appearance: no apparent distress, alert (asleep initially, wakes to vo ice), obese Neurologic Exam: oriented x 3, cooperative Skin Exam: warm, dry, No rash Wound Assessment: Skin/Wound Assessment Wound/Incision Assessment Start: 07/04/22 17:48 Text: Status: Active Freq: Q6H Protocol: Document 07/04/22 20:00 LB (Rec: 07/04/22 21:40 LB [id number]) Wound/Incision Assessment Right Lower Anterior Other Wound Assessment Shift Assessment Wound Type cellulitis Wound Stage Non Pressure Wound Dressing Status Changed Drainage Amount None General Appearance Open to air,Reddened Length (cm) (cm) 3 Width (cm) (cm) 2 Surrounding Tissue Bright Red Wound Photo Photo Taken No Wound/Incision Assessment Start: 07/05/22 08:00 Text: Status: Active Freq: Q6H Protocol: Document 07/06/22 07:59 RB (Rec: 07/06/22 07:59 RB [id number]) Wound/Incision Assessment Right Lower Anterior Other Wound Assessment Shift Assessment Wound Type cellulitis Wound Stage Non Pressure Wound Dressing Status Changed Drainage Amount None General Appearance Open to air,Reddened Length (cm) (cm) 3 Width (cm) (cm) 2 Surrounding Tissue Bright Red,Shiny Comment open to air Wound Photo Photo Taken No Eye Exam: eyes nml inspection Ears, Nose, Throat Exam: moist mucous membranes Neck Exam: normal inspection Respiratory Exam: normal breath sounds, lungs clear, No crackles/rales, No rhonchi Cardiovascular Exam: regular rate/rhythm, normal heart sounds, No murmur Gastrointestinal/Abdomen Exam: soft, normal bowel sounds, No tenderness, No distention, No mass, No guarding, No rebound Extremity Exam: other (RLE, some decrease in tiny erythematous streaking proximal to wound. Periwound erythma unchanged. Area is warm compared to LLE. Bilat toes neurovasc intact with cap rf < 2 sec.) OBJECTIVE DATA Vital Signs: Vital Signs - 24 hr Temp Pulse Resp BP Pulse Ox 07/06/22 07:02 69 18 96 07/06/22 04:34 97.6 F 67 18 111/56 94 L 07/05/22 20:18 98.3 F 87 19 100/56 93 L 07/05/22 19:47 83 18 97 07/05/22 17:00 97.3 F 80 124/60 95 07/05/22 16:16 95 07/05/22 16:00 97.8 F 80 18 118/70 96 07/05/22 15:48 80 16 94 L 07/05/22 12:00 97.3 F 79 17 124/60 97 Pain Assessment - Last Documented Pain Intensity 8 Pain Scale Used 0-10 Pain Scale Intake and Output: Intake & Output 07/03/22 07/04/22 07/05/22 07/06/22 11:59 11:59 11:59 11:59 Intake Total 2628 3946 Output Total 1050 600 Balance 1578 3346 Weight 125.1 kg 124 kg 127 kg Lab Results: Lab Results-Last 24 Hours 07/05/22 07/05/22 07/05/22 Range/Units 09:34 11:41 16:55 WBC (4.0-10.5) x10^3/uL RBC (4.1-5.4) x10^6/uL Hgb (12.0-16.0) g/dL Hct (35-47) % MCV (78-100) fL MCH (26-32) pg MCHC (32-36) g/dL RDW (11.5-14.0) % Plt Count (150-450) x10^3/uL MPV (7.5-11.0) fL Gran % (36.0-66.0) % Immature Gran % (Auto) (0.00-0.4) % Nucleat RBC Rel Count (0.00-0.1) % Eos # (Auto) (0-0.5) x10^3/uL Immature Gran # (Auto) (0.00-0.03) x10^3u/L Absolute Lymphs (auto) (1.0-4.6) x10^3/uL Absolute Monos (auto) (0.0-1.3) x10^3/uL Absolute Nucleated RBC (0.00-0.01) x10^3u/L Lymphocytes % (24.0-44.0) % Monocytes % (0.0-12.0) % Eosinophils % (0.00-5.0) % Basophils % (0.0-0.4) % Absolute Granulocytes (1.4-6.9) x10^3/uL Basophils # (0-0.4) x10^3/uL Sodium (137-145) mmol/L Potassium (3.5-5.1) mmol/L Chloride (98-107) mmol/L Carbon Dioxide (22-30) mmol/L Anion Gap (5-15) MEQ/L BUN (7-17) mg/dL Creatinine (0.52-1.04) mg/dL Estimated GFR ML/MIN Glucose (74-106) mg/dL POC Glucometer 288 H 280 H (74 to 106) mg/dL Hemoglobin A1c > 14.00 H (4.5-6.0) % Calcium (8.4-10.2) mg/dL Total Bilirubin (0.2-1.3) mg/dL AST (14-36) U/L ALT (0-35) U/L Alkaline Phosphatase (38-126) U/L Serum Total Protein (6.3-8.2) g/dL Albumin (3.5-5.0) g/dL Slides for Path Review 07/05/22 07/06/22 07/06/22 Range/Units 20:50 06:58 07:28 WBC 3.8 L (4.0-10.5) x10^3/uL RBC 4.28 (4.1-5.4) x10^6/uL Hgb 12.2 (12.0-16.0) g/dL Hct 39.0 (35-47) % MCV 91.1 (78-100) fL MCH 28.5 (26-32) pg MCHC 31.3 L (32-36) g/dL RDW 14.5 H (11.5-14.0) % Plt Count 88 L (150-450) x10^3/uL MPV 11.1 H (7.5-11.0) fL Gran % 50.7 (36.0-66.0) % Immature Gran % (Auto) 0.3 (0.00-0.4) % Nucleat RBC Rel Count 0.0 (0.00-0.1) % Eos # (Auto) 0.16 (0-0.5) x10^3/uL Immature Gran # (Auto) 0.01 (0.00-0.03) x10^3u/L Absolute Lymphs (auto) 1.24 (1.0-4.6) x10^3/uL Absolute Monos (auto) 0.42 (0.0-1.3) x10^3/uL Absolute Nucleated RBC 0.00 (0.00-0.01) x10^3u/L Lymphocytes % 33.0 (24.0-44.0) % Monocytes % 11.2 (0.0-12.0) % Eosinophils % 4.3 (0.00-5.0) % Basophils % 0.5 (0.0-0.4) % Absolute Granulocytes 1.91 (1.4-6.9) x10^3/uL Basophils # 0.02 (0-0.4) x10^3/uL Sodium (137-145) mmol/L Potassium (3.5-5.1) mmol/L Chloride (98-107) mmol/L Carbon Dioxide (22-30) mmol/L Anion Gap (5-15) MEQ/L BUN (7-17) mg/dL Creatinine (0.52-1.04) mg/dL Estimated GFR ML/MIN Glucose (74-106) mg/dL POC Glucometer 283 H 228 H (74 to 106) mg/dL Hemoglobin A1c (4.5-6.0) % Calcium (8.4-10.2) mg/dL Total Bilirubin (0.2-1.3) mg/dL AST (14-36) U/L ALT (0-35) U/L Alkaline Phosphatase (38-126) U/L Serum Total Protein (6.3-8.2) g/dL Albumin (3.5-5.0) g/dL Slides for Path Review YES 07/06/22 Range/Units 07:28 WBC (4.0-10.5) x10^3/uL RBC (4.1-5.4) x10^6/uL Hgb (12.0-16.0) g/dL Hct (35-47) % MCV (78-100) fL MCH (26-32) pg MCHC (32-36) g/dL RDW (11.5-14.0) % Plt Count (150-450) x10^3/uL MPV (7.5-11.0) fL Gran % (36.0-66.0) % Immature Gran % (Auto) (0.00-0.4) % Nucleat RBC Rel Count (0.00-0.1) % Eos # (Auto) (0-0.5) x10^3/uL Immature Gran # (Auto) (0.00-0.03) x10^3u/L Absolute Lymphs (auto) (1.0-4.6) x10^3/uL Absolute Monos (auto) (0.0-1.3) x10^3/uL Absolute Nucleated RBC (0.00-0.01) x10^3u/L Lymphocytes % (24.0-44.0) % Monocytes % (0.0-12.0) % Eosinophils % (0.00-5.0) % Basophils % (0.0-0.4) % Absolute Granulocytes (1.4-6.9) x10^3/uL Basophils # (0-0.4) x10^3/uL Sodium 141 (137-145) mmol/L Potassium 4.2 (3.5-5.1) mmol/L Chloride 105 (98-107) mmol/L Carbon Dioxide 32 H (22-30) mmol/L Anion Gap 8.1 (5-15) MEQ/L BUN 22 H (7-17) mg/dL Creatinine 0.86 (0.52-1.04) mg/dL Estimated GFR > 60.0 ML/MIN Glucose 246 H (74-106) mg/dL POC Glucometer (74 to 106) mg/dL Hemoglobin A1c (4.5-6.0) % Calcium 8.5 (8.4-10.2) mg/dL Total Bilirubin 0.50 (0.2-1.3) mg/dL AST 30 (14-36) U/L ALT 21 (0-35) U/L Alkaline Phosphatase 106 (38-126) U/L Serum Total Protein 6.7 (6.3-8.2) g/dL Albumin 3.1 L (3.5-5.0) g/dL Slides for Path Review Radiology Exams: Radiology Procedures Category Date Time Status VENOUS UNILAT/LIMITED EXTREMIT [US] Stat Exams 07/04/22 11:46 Completed Assessment/Plan (1) Cellulitis, leg Current Visit: Yes Status: Acute Qualifiers: Laterality: right Qualified Code(s): L03.115 - Cellulitis of right lower limb Assessment & Plan: possible mild improvement, will go ahead and add vancomycin to rocephin. PT to consult tomorrow for likely debridement. (2) Uncontrolled diabetes mellitus Current Visit: Yes Status: Chronic Qualifiers: Diabetes mellitus type: type 2 Glycemic state: with hyperglycemia Qualified Code(s): E11.65 - Type 2 diabetes mellitus with hyperglycemia Assessment & Plan: BS better, in 200s past 24 hrs Code(s): E11.65 - TYPE 2 DIABETES MELLITUS WITH HYPERGLYCEMIA (3) Thrombocytopenia Current Visit: No Status: Chronic (4) Shoulder arthritis Current Visit: No Status: Chronic Code(s): M19.019 - PRIMARY OSTEOARTHRITIS, UNSPECIFIED SHOULDER (5) DVT prophylaxis Current Visit: Yes Status: Acute (6) ANGIE (obstructive sleep apnea) Current Visit: Yes Status: Acute Assessment & Plan: She needs a repeat sleep study - has worn CPAP but it's now broken Code(s): G47.33 - OBSTRUCTIVE SLEEP APNEA (ADULT) (PEDIATRIC)
[2022-07-06] MEDS: Hydromorphone 1 mg/ml Injection IV PRN ×2 (14:45→21:16)
[2022-07-06] MEDS: Sodium Chloride 0.9% 1000 ML 1,000 ML IV SCH (14:46)
[2022-07-06] MEDS: HUMULIN R SQ PRN ×2 (18:07→21:47)
[2022-07-07] MEDS: Zofran 4 MG/2 ML VIAL IV PRN ×2 (00:47→21:42)
[2022-07-07] MEDS: Hydromorphone 1 mg/ml Injection IV PRN ×6 (04:25→23:57)
[2022-07-07 05:11] LABS: Absolute Neutrophil Ct (ANC) 2.85 x10^3/uL (1.4-6.9); BASOPHIL % 0.4 % (0.0-0.4); Basophil (Absolute #) 0.02 x10^3/uL (0-0.4); Eosinophil (Absolute #) 0.14 x10^3/uL (0-0.5); Hematocrit 39.5 % (35-47); Hemoglobin 12.3 g/dL (12.0-16.0); IMMATURE GRAN # 0.01 x10^3u/L (0.00-0.03); IMMATURE GRAN % 0.2 % (0.00-0.4); Lymphocytes % 23.9 % (24.0-44.0); Mean Cell Volume 90.6 fL (78-100); Mean Corpuscular Hemoglobin 28.2 pg (26-32); Mean Corpuscular Hgb Concent. 31.1 g/dL (32-36); Monocyte (Absolute #) 0.49 x10^3/uL (0.0-1.3); Monocytes % 10.6 % (0.0-12.0); Neutrophil % 61.9 % (36.0-66.0); Platelet Count 88 x10^3/uL (150-450); Red Blood Count 4.36 x10^6/uL (4.1-5.4); Red Cell Distribution Width 14.4 % (11.5-14.0); White Blood Count 4.6 x10^3/uL (4.0-10.5)
[2022-07-07 05:23] LABS: ALBUMIN 3.2 g/dL (3.5-5.0); ALKALINE PHOSPHATASE 107 U/L (38-126); ANION GAP 7.8 MEQ/L (5-15); BLOOD UREA NITROGEN 18 mg/dL (7-17); CHLORIDE 104 mmol/L (98-107); Calcium 8.5 mg/dL (8.4-10.2); Carbon Dioxide 33 mmol/L (22-30); EST GLOMERULAR FILTRATION RATE > 60.0 ML/MIN; Glucose 178 mg/dL (74-106); Potassium 3.9 mmol/L (3.5-5.1); SGOT/AST 41 U/L (14-36); SGPT/ALT 23 U/L (0-35); SODIUM 141 mmol/L (137-145); Total Protein 6.7 g/dL (6.3-8.2)
[2022-07-07 06:37] LABS: Slide Review 1 YES
--- NOTE | 2022-07-07 08:35 | XRAY ---
Indication: Pain following fall. Comparison: None 2 view right femur demonstrates osteopenia and moderate scattered vascular calcifications. No other bony, articular, or soft tissue abnormalities. Comment: Preliminary interpretation made by [facility]. No critical discrepancy.
--- NOTE | 2022-07-07 08:35 | XRAY ---
Indication: Pain following fall. Comparison: None 2 view left femur demonstrates osteopenia and moderate scattered vascular calcifications. No other bony, articular, or soft tissue abnormalities. Comment: Preliminary interpretation made by [facility]. No critical discrepancy.
--- NOTE | 2022-07-07 08:46 | XRAY ---
Indication: Pain following fall. Comparison: None 3 view left knee demonstrates nondisplaced fibula head fracture best seen on lateral view. Elsewhere osteopenia, minimal/mild tricompartmental degenerative changes, tiny heterotopic ossification adjacent to medial tibial plateau, and moderate scattered vascular calcifications. No other bony, articular, or soft tissue abnormalities. Comment: Preliminary interpretation made by [facility] who does not report fibula fracture. Telephone report was given to Dr. Shahid at 0841 hrs. on July 07, 2022.
--- NOTE | 2022-07-07 08:47 | XRAY ---
Indication: Pain following fall. Comparison: None 3 view right knee demonstrates osteopenia, minimal/mild tricompartmental degenerative changes, tiny posterior fabella, and moderate scattered vascular calcifications. No other bony, articular, or soft tissue abnormalities. Comment: Preliminary interpretation made by [facility]. No critical discrepancy.
--- NOTE | 2022-07-07 08:49 | XRAY ---
Indication: Pain following fall. Comparison: None 2 view left knee demonstrates osteopenia, knee degenerative changes reported separately, tiny posterior heel spur, small medial/lateral malleolus heterotopic ossifications, and ankle soft tissue swelling. Query nondisplaced hairline fracture medial malleolus on the frontal view. No other bony, articular, or soft tissue abnormalities. Comment: Preliminary interpretation made by [facility]. No critical discrepancy.
--- NOTE | 2022-07-07 08:51 | XRAY ---
Indication: Pain following fall. Comparison: None 2 view right knee demonstrates osteopenia, knee degenerative changes/fibula head fracture reported separately, tiny posterior/plantar heel spurs, mild midfoot degenerative changes, and ankle/foot soft tissue swelling. No other bony, articular, or soft tissue abnormalities. Comment: Preliminary interpretation made by [facility]. No critical discrepancy.
[2022-07-07] MEDS: Lantus Insulin SQ SCH ×2 (09:03→21:36)
[2022-07-07] MEDS: Protonix 40MG Tablet PO SCH ×2 (09:04→21:35)
[2022-07-07] MEDS: NEURONTIN PO SCH ×2 (09:04→19:55)
[2022-07-07] MEDS: ENOXAPARIN SODIUM SQ SCH (09:04)
[2022-07-07] MEDS: Lasix 40 MG PO SCH (09:04)
[2022-07-07] MEDS: ZOCOR 20MG PO SCH (09:05)
[2022-07-07] MEDS: Klor Con PO SCH (09:05)
[2022-07-07] MEDS: Zestril 20 MG PO SCH ×2 (09:05→21:35)
[2022-07-07] MEDS: Pepcid 20 MG VIAL IV SCH ×2 (09:05→21:35)
[2022-07-07] MEDS: ROCEPHIN 1 Gm-D5w 50 ml Bag** 1 G/50 ML IVPB IV SCH (09:30)
[2022-07-07] MEDS: VANCOMYCIN 1.25 GM/250 ML BAG 1.25 GM/250 ML PIGGYBACK IV SCH ×2 (10:40→21:36)
[2022-07-07] MEDS: Mirapex 0.5 MG Tablet PO SCH ×2 (11:29→21:35)
[2022-07-07] MEDS: PERCOCET TABLET 5/325MG PO SCH ×3 (11:29→21:35)
[2022-07-07] MEDS: HUMULIN R SQ PRN (11:57)
--- NOTE | 2022-07-07 16:08 | PCM.CONS ---
Podiatry HPI - Consult Date of Consultation Date: 07/07/22 Reason for Consult: Fracture ankle. Venous insufficency ulceration. Consulting Provider: SHELDON HOSKINS DPM - [facility] History of Present Illness: Amelia is a very pleasant 57 year old female who is seen at bedside with extensive medical consisting of DVT, HLD, HTN, CHF, DM II, and RA who was admitted through ER with RLE cellulitis/ulcer with uncontrolled DM and thrombocytopenia. Patient indicates significant pain to the bilateral lower extremities. She indicates that she has had a wound to the anterior aspect of the right lower extremity with pain. Consultation for fracture management to the right lower extremity secondary to fall. suspected Medial malleolar fracture noted. Medications & Allergies Home Medications: Home Medication List Lisinopril 20 mg [Zestril 20 MG] 20 mg PO BID 08/25/12 [History Confirmed 07/04/22] Furosemide [Lasix] 40 mg PO DAILY 10/06/13 [History Confirmed 07/04/22] Atorvastatin Calcium [Lipitor 20MG Tablet] 20 mg PO DAILY 06/11/17 [History Confirmed 07/04/22] Insulin Glargine,Hum.rec.anlog [Basaglar Kwikpen U-100] 80 unit SQ BID 06/11/17 [History Confirmed 07/04/22] Potassium Chloride Tab* [Klor Con] 10 meq PO DAILY 06/11/17 [History Confirmed 07/04/22] Buprenorphine HCl [Belbuca] 750 mcg PO 0800,199907/31/17 [History Confirmed 07/04/22] Omeprazole 20 MG [Prilosec 20 mg] 40 mg PO BID 07/31/17 [History Confirmed 07/04/22] Insulin Lispro [Admelog Solostar] 0 unit SQ ACHS 07/22/20 [History Confirmed 07/04/22] Albuterol Sulfate [Albuterol Sulfate Hfa] 1 puff IH Q4HPRN PRN 07/04/22 [History Confirmed 07/04/22] Gabapentin Enacarbil [Horizant] 600 mg PO 0800,199907/04/22 [History Confirmed 07/04/22] Oxycodone HCl/Acetaminophen [Percocet 5-325 mg Tablet] 1 each PO TID 07/04/22 [History Confirmed 07/04/22] Pramipexole Di-HCl 0.5 mg [Mirapex 0.5 MG Tablet] 0.5 mg PO BID 07/04/22 [History Confirmed 07/04/22] Allergies/Adverse Reactions: Allergies Allergy/AdvReac Type Severity Reaction Status Date / Time adhesive tape AdvReac Intermediate Verified 07/04/22 17:05 - Past Medical History Past Medical History: Yes Neurological History: No Pertinent History ENT History: No Pertinent History Cardiac History: Deep Vein Thrombosis, High Cholesterol, Hypertension Respiratory History: CHF Endocrine Medical History: Diabetes Type II Musculoskelatal History: Rheumatoid Arthritis GI Medical History: No Pertinent History History: No Pertinent History Pyscho-Social History: No Pertinent History Reproductive Disorders: No Pertinent History Comment: BURSITIS TO BOTH SHOULDERS, NEUROPATHY THROUGHOUT HER BODY - Female History Are you now?: No - Past Surgical History Past Surgical History: Yes Neuro Surgical History: No Pertinent History Cardiac History: No Pertinent History Respiratory Surgery: No Pertinent History GI Surgical History: Other Genitourinary Surgical Hx: No Pertinent History Musculskeletal Surgical Hx: No Pertinent History Female Surgical History: Tubal Ligation, Other Other Surgical History: d & c, (rectal surgery x3, cyst removed from rectum). cyst removed from pancreas - Social History Smoking Status: Never smoker Exposure to second hand smoke: Yes Alcohol: None Drug Use: none Significant Family History: no pertinent family hx Physical Exam - General General Appearance: no apparent distress, lethargy - Neuro Neurologic: Epicritic and protopathic (absent) - Vascular Peripheral Pulses: Posterior tibialis: 2+, Dorsalis-Pedis: 2+ Capillary Refill Time: Immediate Hair Growth: Symmetrical and Bilateral Varicosities: Positive Edema: Pitting Edema Degree: 3+ Skin: Supple, not atrophic Skin Temperature: Warm to touch - Narrative Narrative Physical Exam: Podiatry Physical Exam Eschar noted to anterior right leg measuring ( ____) periwound erthyma and tenderness noted. Perimalleolar ankle pain bilateral lower extremity. Right with potential fracture over medial malleolus however pain consistent with palpation through examination. Pain diffuse to the bilateral lower extremity. Results - Labs Lab/Micro Results: Lab Results-Last 24 Hours 07/06/22 07/06/22 07/07/22 Range/Units 16:52 20:53 04:58 WBC 4.6 (4.0-10.5) x10^3/uL RBC 4.36 (4.1-5.4) x10^6/uL Hgb 12.3 (12.0-16.0) g/dL Hct 39.5 (35-47) % MCV 90.6 (78-100) fL MCH 28.2 (26-32) pg MCHC 31.1 L (32-36) g/dL RDW 14.4 H (11.5-14.0) % Plt Count 88 L (150-450) x10^3/uL MPV 11.0 (7.5-11.0) fL Gran % 61.9 (36.0-66.0) % Immature Gran % (Auto) 0.2 (0.00-0.4) % Nucleat RBC Rel Count 0.0 (0.00-0.1) % Eos # (Auto) 0.14 (0-0.5) x10^3/uL Immature Gran # (Auto) 0.01 (0.00-0.03) x10^3u/L Absolute Lymphs (auto) 1.10 (1.0-4.6) x10^3/uL Absolute Monos (auto) 0.49 (0.0-1.3) x10^3/uL Absolute Nucleated RBC 0.00 (0.00-0.01) x10^3u/L Lymphocytes % 23.9 L (24.0-44.0) % Monocytes % 10.6 (0.0-12.0) % Eosinophils % 3.0 (0.00-5.0) % Basophils % 0.4 (0.0-0.4) % Absolute Granulocytes 2.85 (1.4-6.9) x10^3/uL Basophils # 0.02 (0-0.4) x10^3/uL Sodium (137-145) mmol/L Potassium (3.5-5.1) mmol/L Chloride (98-107) mmol/L Carbon Dioxide (22-30) mmol/L Anion Gap (5-15) MEQ/L BUN (7-17) mg/dL Creatinine (0.52-1.04) mg/dL Estimated GFR ML/MIN Glucose (74-106) mg/dL POC Glucometer 264 H 252 H (74 to 106) mg/dL Calcium (8.4-10.2) mg/dL Total Bilirubin (0.2-1.3) mg/dL AST (14-36) U/L ALT (0-35) U/L Alkaline Phosphatase (38-126) U/L Serum Total Protein (6.3-8.2) g/dL Albumin (3.5-5.0) g/dL Slides for Path Review YES 07/07/22 07/07/22 07/07/22 Range/Units 04:58 06:40 11:30 WBC (4.0-10.5) x10^3/uL RBC (4.1-5.4) x10^6/uL Hgb (12.0-16.0) g/dL Hct (35-47) % MCV (78-100) fL MCH (26-32) pg MCHC (32-36) g/dL RDW (11.5-14.0) % Plt Count (150-450) x10^3/uL MPV (7.5-11.0) fL Gran % (36.0-66.0) % Immature Gran % (Auto) (0.00-0.4) % Nucleat RBC Rel Count (0.00-0.1) % Eos # (Auto) (0-0.5) x10^3/uL Immature Gran # (Auto) (0.00-0.03) x10^3u/L Absolute Lymphs (auto) (1.0-4.6) x10^3/uL Absolute Monos (auto) (0.0-1.3) x10^3/uL Absolute Nucleated RBC (0.00-0.01) x10^3u/L Lymphocytes % (24.0-44.0) % Monocytes % (0.0-12.0) % Eosinophils % (0.00-5.0) % Basophils % (0.0-0.4) % Absolute Granulocytes (1.4-6.9) x10^3/uL Basophils # (0-0.4) x10^3/uL Sodium 141 (137-145) mmol/L Potassium 3.9 (3.5-5.1) mmol/L Chloride 104 (98-107) mmol/L Carbon Dioxide 33 H (22-30) mmol/L Anion Gap 7.8 (5-15) MEQ/L BUN 18 H (7-17) mg/dL Creatinine 0.70 (0.52-1.04) mg/dL Estimated GFR > 60.0 ML/MIN Glucose 178 H (74-106) mg/dL POC Glucometer 158 H 153 H (74 to 106) mg/dL Calcium 8.5 (8.4-10.2) mg/dL Total Bilirubin 0.60 (0.2-1.3) mg/dL AST 41 H (14-36) U/L ALT 23 (0-35) U/L Alkaline Phosphatase 107 (38-126) U/L Serum Total Protein 6.7 (6.3-8.2) g/dL Albumin 3.2 L (3.5-5.0) g/dL Slides for Path Review 07/07/22 Range/Units 15:16 WBC (4.0-10.5) x10^3/uL RBC (4.1-5.4) x10^6/uL Hgb (12.0-16.0) g/dL Hct (35-47) % MCV (78-100) fL MCH (26-32) pg MCHC (32-36) g/dL RDW (11.5-14.0) % Plt Count (150-450) x10^3/uL MPV (7.5-11.0) fL Gran % (36.0-66.0) % Immature Gran % (Auto) (0.00-0.4) % Nucleat RBC Rel Count (0.00-0.1) % Eos # (Auto) (0-0.5) x10^3/uL Immature Gran # (Auto) (0.00-0.03) x10^3u/L Absolute Lymphs (auto) (1.0-4.6) x10^3/uL Absolute Monos (auto) (0.0-1.3) x10^3/uL Absolute Nucleated RBC (0.00-0.01) x10^3u/L Lymphocytes % (24.0-44.0) % Monocytes % (0.0-12.0) % Eosinophils % (0.00-5.0) % Basophils % (0.0-0.4) % Absolute Granulocytes (1.4-6.9) x10^3/uL Basophils # (0-0.4) x10^3/uL Sodium (137-145) mmol/L Potassium (3.5-5.1) mmol/L Chloride (98-107) mmol/L Carbon Dioxide (22-30) mmol/L Anion Gap (5-15) MEQ/L BUN (7-17) mg/dL Creatinine (0.52-1.04) mg/dL Estimated GFR ML/MIN Glucose (74-106) mg/dL POC Glucometer 117 H (74 to 106) mg/dL Calcium (8.4-10.2) mg/dL Total Bilirubin (0.2-1.3) mg/dL AST (14-36) U/L ALT (0-35) U/L Alkaline Phosphatase (38-126) U/L Serum Total Protein (6.3-8.2) g/dL Albumin (3.5-5.0) g/dL Slides for Path Review Accuchecks Date 07/07/22 Date 07/07/22 Date 07/06/22 Date 07/06/22 Time 12:00 Time 06:58 Time 20:55 Time 17:02 - Radiology Impressions Radiology Exams & Impressions: Radiology Procedures Category Date Time Status FEMUR Stat Exams 07/06/22 19:00 Completed FEMUR Stat Exams 07/06/22 19:00 Completed KNEE (3 VIEWS) Stat Exams 07/06/22 19:00 Completed KNEE (3 VIEWS) Stat Exams 07/06/22 19:00 Completed LOWER LEG Stat Exams 07/06/22 19:00 Completed LOWER LEG Stat Exams 07/06/22 19:00 Completed Assessment/Plan (1) Venous insufficiency (chronic) (peripheral) Current Visit: Yes Status: Acute Assessment & Plan: Inital patient examination and evaluation Radiographs reviewed. Will need more views to determine further fractures to the right ankle. Based on clinical examination, review of medical record and radiographs at this time; patient is not a good surgical candidate. New radiographs for final assessment of fracture pattern- based on finding medial malleolus appears non displaced and likely can benefit from non surgical treatment. Non weight bearing is recommended at this time. For venous insufficicency ulceration to the right leg. debridement preformed revealing full thickness ulceration with serous drainage. negative for any obvious signs of purulence. Patient would benefit from compression therapy consisting of unna boots to the bilateral lower extremity. Patient has had right leg DVT historically. Ultrasound at this time demonstrates no venous occlusions. Recommend wheel chair on discharge- ariel has signficant mobility limitations that singficantly impairs the ability to participate in bathing, grooming, dressing and toileting herself that which cannot be resolved with the use of a walker or a cane. Patients home has adequate room for MWC. Patient is physically and mentally able with UE function to operate MW. Non weight bearing to right lower extremity stressed at this time. (2) Ulcer of varicose vein of right leg Current Visit: Yes Status: Acute Code(s): I83.019 - VARICOSE VEINS OF RIGHT LOWER EXTREMITY W ULCER OF UNSP SITE; L97.919 - NON-PRS CHRONIC ULC UNSP PRT OF R LOW LEG W UNSP SEVERITY (3) Medial malleolar fracture Current Visit: Yes Status: Acute Code(s): S82.53XA - DISP FX OF MEDIAL MALLEOLUS OF UNSP TIBIA, INIT FOR CLOS FX (4) Osteoarthritis of ankle and foot Current Visit: Yes Status: Acute Code(s): M19.079 - PRIMARY OSTEOARTHRITIS, UNSPECIFIED ANKLE AND FOOT (5) Cellulitis, leg Current Visit: Yes Status: Acute Qualifiers: Laterality: right Qualified Code(s): L03.115 - Cellulitis of right lower limb (6) DVT prophylaxis Current Visit: Yes Status: Acute (7) Uncontrolled diabetes mellitus Current Visit: Yes Status: Chronic Qualifiers: Diabetes mellitus type: type 2 Glycemic state: with hyperglycemia Qualified Code(s): E11.65 - Type 2 diabetes mellitus with hyperglycemia Code(s): E11.65 - TYPE 2 DIABETES MELLITUS WITH HYPERGLYCEMIA
--- NOTE | 2022-07-07 16:51 | XRAY ---
Indication: Pain following fall. Comparison: Right lower leg exam earlier in the day. 3 view right ankle now confirms medial malleolus fracture now appearing mildly displaced. Also new widened talotibial articulation concerning for underlying ligamentous injury with effusion. Remaining ankle unchanged again demonstrating osteopenia, medial/lateral malleolus tip heterotopic ossifications, heel spurs, and soft tissue swelling.
--- NOTE | 2022-07-07 16:53 | XRAY ---
Indication: Pain following fall. Comparison: Left lower leg exam earlier in the day. 3 view left ankle unchanged again demonstrating osteopenia, tiny medial malleolus tip heterotopic ossification, heel spurs, and soft tissue swelling. No new bony, articular, or soft tissue abnormalities.
--- NOTE | 2022-07-07 18:17 | PCM.NOTE ---
Date and Time: 07/07/221814 Subjective Assessment: pain and swelling on right lower leg - Review of Systems Constitutional: No Fever, No Chills Eyes: No Symptoms Ears, Nose, & Throat: No Symptoms Respiratory: No Cough, No Short Of Breath Cardiac: No Chest Pain, No Edema, No Syncope Abdominal/Gastrointestinal: No Abdominal Pain, No Nausea, No Vomiting, No Diarrhea Genitourinary Symptoms: No Dysuria Musculoskeletal: Fall, No Back Pain, No Neck Pain Skin: No Rash Neurological: No Dizziness, No Focal Weakness, No Sensory Changes Psychological: No Symptoms Endocrine: No Symptoms Hematologic/Lymphatic: No Symptoms Immunological/Allergic: No Symptoms Objective Exam General Appearance: no apparent distress, alert Neurologic Exam: alert, oriented x 3, cooperative, normal mood/affect, nml cerebellar function, sensation nml, No motor deficits Skin Exam: normal color, warm, dry Wound Assessment: Skin/Wound Assessment Wound/Incision Assessment Start: 07/04/22 17:48 Text: Status: Active Freq: Q6H Protocol: Document 07/04/22 20:00 LB (Rec: 07/04/22 21:40 LB [id number]) Wound/Incision Assessment Right Lower Anterior Other Wound Assessment Shift Assessment Wound Type cellulitis Wound Stage Non Pressure Wound Dressing Status Changed Drainage Amount None General Appearance Open to air,Reddened Length (cm) (cm) 3 Width (cm) (cm) 2 Surrounding Tissue Bright Red Wound Photo Photo Taken No Wound/Incision Assessment Start: 07/05/22 08: 00 Text: Status: Active Freq: Q6H Protocol: Document 07/07/22 14:00 RB (Rec: 07/07/22 14:39 RB [id number]) Wound/Incision Assessment Right Lower Anterior Other Wound Assessment Shift Assessment Wound Type cellulitis Wound Stage Non Pressure Wound Drainage Amount Minimal Drainage Odor None/Absent General Appearance Open to air,Reddened Wound Bed Greatest Portion Red (Granulation) Surrounding Tissue Bright Red,Shiny Comment open to air/ MINIMAL BLEEDING NOTED Wound Photo Photo Taken No Eye Exam: PERRL, EOMI, eyes nml inspection Ears, Nose, Throat Exam: normal ENT inspection, pharynx normal, moist mucous membranes Neck Exam: normal inspection, non-tender, supple, full range of motion Respiratory Exam: normal breath sounds, lungs clear, No respiratory distress Cardiovascular Exam: regular rate/rhythm, normal heart sounds Gastrointestinal/Abdomen Exam: soft, No tenderness, No mass Extremity Exam: normal inspection, normal range of motion, inflammation, swelling (rightlower leg) Back Exam: normal inspection, normal range of motion, No CVA tenderness, No vertebral tenderness Pelvic Exam: deferred Rectal Exam: deferred OBJECTIVE DATA Vital Signs: Vital Signs - 24 hr Temp Pulse Resp BP Pulse Ox 07/07/22 16:34 98.0 F 80 14 130/61 94 L 07/07/22 12:01 98.0 F 77 14 160/70 91 L 07/07/22 11:45 79 12 93 L 07/07/22 06:58 98.1 F 81 16 152/70 93 L 07/07/22 04:05 98.3 F 78 19 137/60 94 L 07/07/22 01:00 98.3 F 77 19 144/65 92 L 07/06/22 22:16 80 18 93 L 07/06/22 21:18 18 91 L 07/06/22 19:24 97.9 F 87 20 138/65 94 L 07/06/22 18:52 97.9 F 94 H 20 138/65 94 L Pain Assessment - Last Documented Pain Intensity 8 Pain Scale Used 0-10 Pain Scale Intake and Output: Intake & Output 07/05/22 07/06/22 07/07/22 07/08/22 11:59 11:59 11:59 11:59 Intake Total 2628 4146 2888 600 Output Total 1050 600 500 Balance 1578 3546 2888 100 Weight 124 kg 127 kg 127.2 kg Lab Results: Lab Results-Last 24 Hours 07/06/22 07/07/22 07/07/22 Range/Units 20:53 04:58 04:58 WBC 4.6 (4.0-10.5) x10^3/uL RBC 4.36 (4.1-5.4) x10^6/uL Hgb 12.3 (12.0-16.0) g/dL Hct 39.5 (35-47) % MCV 90.6 (78-100) fL MCH 28.2 (26-32) pg MCHC 31.1 L (32-36) g/dL RDW 14.4 H (11.5-14.0) % Plt Count 88 L (150-450) x10^3/uL MPV 11.0 (7.5-11.0) fL Gran % 61.9 (36.0-66.0) % Immature Gran % (Auto) 0.2 (0.00-0.4) % Nucleat RBC Rel Count 0.0 (0.00-0.1) % Eos # (Auto) 0.14 (0-0.5) x10^3/uL Immature Gran # (Auto) 0.01 (0.00-0.03) x10^3u/L Absolute Lymphs (auto) 1.10 (1.0-4.6) x10^3/uL Absolute Monos (auto) 0.49 (0.0-1.3) x10^3/uL Absolute Nucleated RBC 0.00 (0.00-0.01) x10^3u/L Lymphocytes % 23.9 L (24.0-44.0) % Monocytes % 10.6 (0.0-12.0) % Eosinophils % 3.0 (0.00-5.0) % Basophils % 0.4 (0.0-0.4) % Absolute Granulocytes 2.85 (1.4-6.9) x10^3/uL Basophils # 0.02 (0-0.4) x10^3/uL Sodium 141 (137-145) mmol/L Potassium 3.9 (3.5-5.1) mmol/L Chloride 104 (98-107) mmol/L Carbon Dioxide 33 H (22-30) mmol/L Anion Gap 7.8 (5-15) MEQ/L BUN 18 H (7-17) mg/dL Creatinine 0.70 (0.52-1.04) mg/dL Estimated GFR > 60.0 ML/MIN Glucose 178 H (74-106) mg/dL POC Glucometer 252 H (74 to 106) mg/dL Calcium 8.5 (8.4-10.2) mg/dL Total Bilirubin 0.60 (0.2-1.3) mg/dL AST 41 H (14-36) U/L ALT 23 (0-35) U/L Alkaline Phosphatase 107 (38-126) U/L Serum Total Protein 6.7 (6.3-8.2) g/dL Albumin 3.2 L (3.5-5.0) g/dL Slides for Path Review YES 07/07/22 07/07/22 07/07/22 Range/Units 06:40 11:30 15:16 WBC (4.0-10.5) x10^3/uL RBC (4.1-5.4) x10^6/uL Hgb (12.0-16.0) g/dL Hct (35-47) % MCV (78-100) fL MCH (26-32) pg MCHC (32-36) g/dL RDW (11.5-14.0) % Plt Count (150-450) x10^3/uL MPV (7.5-11.0) fL Gran % (36.0-66.0) % Immature Gran % (Auto) (0.00-0.4) % Nucleat RBC Rel Count (0.00-0.1) % Eos # (Auto) (0-0.5) x10^3/uL Immature Gran # (Auto) (0.00-0.03) x10^3u/L Absolute Lymphs (auto) (1.0-4.6) x10^3/uL Absolute Monos (auto) (0.0-1.3) x10^3/uL Absolute Nucleated RBC (0.00-0.01) x10^3u/L Lymphocytes % (24.0-44.0) % Monocytes % (0.0-12.0) % Eosinophils % (0.00-5.0) % Basophils % (0.0-0.4) % Absolute Granulocytes (1.4-6.9) x10^3/uL Basophils # (0-0.4) x10^3/uL Sodium (137-145) mmol/L Potassium (3.5-5.1) mmol/L Chloride (98-107) mmol/L Carbon Dioxide (22-30) mmol/L Anion Gap (5-15) MEQ/L BUN (7-17) mg/dL Creatinine (0.52-1.04) mg/dL Estimated GFR ML/MIN Glucose (74-106) mg/dL POC Glucometer 158 H 153 H 117 H (74 to 106) mg/dL Calcium (8.4-10.2) mg/dL Total Bilirubin (0.2-1.3) mg/dL AST (14-36) U/L ALT (0-35) U/L Alkaline Phosphatase (38-126) U/L Serum Total Protein (6.3-8.2) g/dL Albumin (3.5-5.0) g/dL Slides for Path Review Radiology Exams: Radiology Procedures Category Date Time Status ANKLE (3 VIEWS) Stat Exams 07/07/22 16:08 Completed ANKLE (3 VIEWS) Stat Exams 07/07/22 16:09 Completed FEMUR Stat Exams 07/06/22 19:00 Completed FEMUR Stat Exams 07/06/22 19:00 Completed KNEE (3 VIEWS) Stat Exams 07/06/22 19:00 Completed KNEE (3 VIEWS) Stat Exams 07/06/22 19:00 Completed LOWER LEG Stat Exams 07/06/22 19:00 Completed LOWER LEG Stat Exams 07/06/22 19:00 Completed Multi-Disciplinary Progress Notes: Multi-Disciplinary Progress Notes 07/07/22 14:44 Physical Therapy Note by Cem(L#[id number])Angela HOLD P.T. EVAL THIS DATE. AWAITING CONSULT FORM DR. CHUNG RE: FX MG'T AND WB. WILL MONITOR AND COMPLETE EVAL WHEN UPDATED ORDERS GIVEN. Initialized on 07/07/22 14:44 - END OF NOTE Assessment/Plan (1) Cellulitis, leg Current Visit: Yes Status: Acute Qualifiers: Laterality: right Qualified Code(s): L03.115 - Cellulitis of right lower limb Assessment & Plan: Chief Complaint Diagnosis CELLULITIS, UNCONTROLLED DM Allergies Allergy/AdvReac Type Severity Reaction Status Date / Time adhesive tape AdvReac Intermediate Verified 07/04/22 17:05 Vital Signs (Last 24 hours) Temp Pulse Resp BP Pulse Ox 07/07/22 16:34 98.0 F 80 14 130/61 94 L 07/07/22 12:01 98.0 F 77 14 160/70 91 L 07/07/22 11:45 79 12 93 L 07/07/22 06:58 98.1 F 81 16 152/70 93 L 07/07/22 04:05 98.3 F 78 19 137/60 94 L 07/07/22 01:00 98.3 F 77 19 144/65 92 L 07/06/22 22:16 80 18 93 L 07/06/22 21:18 18 91 L 07/06/22 19:24 97.9 F 87 20 138/65 94 L 07/06/22 18:52 97.9 F 94 H 20 138/65 94 L Home Medications Medication Instructions Recorded Confirmed Last Taken Type Albuterol Sulfate [Albuterol 1 puff IH Q4HPRN PRN 07/04/22 07/04/22 Unknown History Sulfate Hfa] Gabapentin Enacarbil [Horizant] 600 mg PO 07/04/22 07/04/22 07/04/22 History Oxycodone HCl/Acetaminophen 1 each PO TID 07/04/22 07/04/22 07/04/22 History [Percocet 5-325 mg Tablet] Pramipexole Di-HCl 0.5 mg 0.5 mg PO BID 07/04/22 07/04/22 07/04/22 History [Mirapex 0.5 MG Tablet] Current Medications Generic Name Dose Route Start Last Admin Trade Name Freq PRN Reason Stop Dose Admin Acetaminophen 650 mg 07/04/22 16:15 07/04/22 20:15 Acetaminophen 325 Mg Tablet PO 08/03/22 16:14 650 mg Q4H PRN PRN Administration PAIN AND/OR FEVER Albuterol Sulfate 1 puff 07/05/22 14:01 Albuterol Common Canister Inhaler IH 08/04/22 14:00 Q4HPRN PRN SHORTNESS OF BREATH/WHEEZING Device 1 07/08/22 09:30 Therapuetic Drug Level Monitor Each IJ 07/08/22 09:31 1XONLY ONE Enoxaparin Sodium 40 mg 07/04/22 17:00 07/07/22 09:04 Enoxaparin Sodium 40 Mg/0.4 Ml Syringe SQ 08/03/22 16:59 40 mg DAILY LUCÍA Administration Famotidine 20 mg 07/04/22 22:00 07/07/22 09:05 Famotidine 20 Mg/1 Vial IV 08/03/22 21:59 20 mg Q12HT LUCÍA Administration Furosemide 40 mg 07/05/22 10:00 07/07/22 09:04 Furosemide 40 Mg Tablet PO 08/04/22 09:59 40 mg DAILY LUCÍA Administration Gabapentin 600 mg 07/05/22 20:00 07/07/22 09:04 Gabapentin 300 Mg Capsule PO 08/03/22 21:59 600 mg 08,1999 LUCÍA Administration Hydromorphone HCl 1 mg 07/07/22 13:40 07/07/22 15:52 Hydromorphone 1 Mg/1ml Inj 1 Mg/Ml Syringe IV 07/12/22 13:39 1 mg Q3H PRN PRN Administration PAIN Sodium Chloride 1,000 mls @ 100 mls/hr 07/04/22 11:45 07/06/22 14:46 Sodium Chloride 0.9% 1000 Ml IV 08/03/22 11:44 100 mls/hr .Q10H LUCÍA Administration Ceftriaxone Sodium/Dextrose 1 g in 50 mls @ 100 mls/hr 07/05/22 10:00 07/07/22 09:30 Rocephin 1 Gm-D5w 50 Ml Bag IV 07/09/22 09:59 100 mls/hr Q24H10 LUCÍA Administration Vancomycin HCl 1.25 gm in 250 mls @ 166.667 mls/hr 07/06/22 10:00 07/07/22 10:40 Vancomycin 1.25 Gm/250 Ml Bag IV 07/09/22 09:59 166.667 mls/hr Q12HT LUCÍA Administration Insulin Glargine 80 unit 07/05/22 22:00 07/07/22 09:03 Insulin Glargine 1 Unit SQ 08/03/22 21:59 80 unit BID LUCÍA Administration Insulin Human Regular 0 unit 07/04/22 16:15 07/07/22 11:57 Insulin Regular, Human 1 Unit SQ 08/03/22 16:14 3 unit UD PRN Administration HYPERGLYCEMIA Lisinopril 20 mg 07/05/22 22:00 07/07/22 09:05 Lisinopril 20 Mg Tablet PO 08/04/22 09:59 20 mg BID LUCÍA Administration Ondansetron HCl 4 mg 07/04/22 16:15 07/07/22 00:47 Ondansetron Hcl 4 Mg/2 Ml Vial IV 08/03/22 16:14 4 mg Q6H PRN PRN Administration NAUSEA/VOMITING Oxycodone/Acetaminophen 1 tab 07/05/22 15:00 02/06/23 16:19 Oxycodone Hcl/Apap 5 Mg/325 Mg Tablet PO 07/10/22 14:59 Not Given TID LUCÍA Pantoprazole Sodium 40 mg 07/05/22 22:00 07/07/22 09:04 Protonix (Pantoprazole) 40 Mg Tablet PO 08/04/22 21:59 40 mg BID LUCÍA Administration Potassium Chloride 10 meq 07/06/22 10:00 07/07/22 09:05 Potassium Chloride Tab 10 Meq Tab PO 08/04/22 09:59 10 meq DAILY LUCÍA Administration Pramipexole Dihydrochloride 0.5 mg 07/05/22 22:00 07/07/22 11:29 Pramipexole Di-Hcl 0.5 Mg Tab PO 08/04/22 21:59 Not Given BID LUCÍA Simvastatin 20 mg 07/05/22 14:00 07/07/22 09:05 Simvastatin 20 Mg Tablet PO 08/04/22 13:59 20 mg DAILY LUCÍA Administration Discontinued Medications Generic Name Dose Route Start Last Admin Trade Name Sengq PRN Reason Stop Dose Admin Gabapentin 600 mg 07/04/22 22:00 07/05/22 09:43 Gabapentin 300 Mg Capsule PO 08/03/22 21:59 600 mg TID LUCÍA Administration Hydromorphone HCl 1 mg 07/04/22 13:21 07/04/22 13:36 Hydromorphone 1 Mg/1ml Inj 1 Mg/Ml Syringe IV 07/04/22 13:22 1 mg STAT ONE Administration Hydromorphone HCl Confirm 07/04/22 13:32 Hydromorphone 1 Mg/1ml Inj 1 Mg/Ml Syringe Administered 07/04/22 13:33 Dose 1 mg .ROUTE .STK-MED ONE Hydromorphone HCl 1 mg 07/04/22 16:00 07/04/22 16:26 Hydromorphone 1 Mg/1ml Inj 1 Mg/Ml Syringe IV 07/04/22 16:01 Not Given STAT ONE Hydromorphone HCl Confirm 07/04/22 16:15 Hydromorphone 1 Mg/1ml Inj 1 Mg/Ml Syringe Administered 07/04/22 16:16 Dose 1 mg .ROUTE .STK-MED ONE Hydromorphone HCl 1 mg 07/04/22 16:15 07/07/22 12:57 Hydromorphone 1 Mg/1ml Inj 1 Mg/Ml Syringe IV 07/09/22 16:14 1 mg Q4H PRN PRN Administration PAIN Ceftriaxone Sodium/Dextrose 1 g in 50 mls @ 100 mls/hr 07/04/22 11:47 07/04/22 12:42 Rocephin 1 Gm-D5w 50 Ml Bag IV 07/04/22 12:16 Infused STAT STA Infusion Ceftriaxone Sodium/Dextrose Confirm 07/04/22 11:55 Rocephin 1 Gm-D5w 50 Ml Bag Administered 07/04/22 11:56 Dose 1 g in 50 mls @ ud IV .STK-MED ONE Insulin Glargine 80 unit 07/04/22 22:00 07/04/22 22:29 Insulin Glargine 1 Unit SQ 08/03/22 21:59 80 unit HS LUCÍA Administration Insulin Human Regular 10 unit 07/04/22 13:20 07/04/22 13:37 Insulin Regular, Human 1 Unit IV 07/04/22 13:21 10 unit STAT ONE Administration Insulin Human Regular Confirm 07/04/22 13:32 Insulin Regular, Human 1 Unit Administered 07/04/22 13:33 Dose 10 unit .ROUTE .STK-MED ONE Insulin Human Regular 10 unit 07/04/22 14:23 07/04/22 14:26 Insulin Regular, Human 1 Unit IV 07/04/22 14:24 Not Given STAT ONE Insulin Human Regular 10 unit 07/04/22 14:21 07/04/22 14:30 Insulin Regular, Human 1 Unit IV 07/04/22 14:22 10 unit STAT ONE Administration Insulin Human Regular Confirm 07/04/22 14:28 Insulin Regular, Human 1 Unit Administered 07/04/22 14:29 Dose 10 unit .ROUTE .STK-MED ONE Ketorolac Tromethamine 30 mg 07/04/22 11:45 07/04/22 11:49 Ketorolac Tromethamine 30 Mg/Ml Inj IV 07/04/22 11:46 30 mg STAT ONE Administration Ketorolac Tromethamine Confirm 07/04/22 11:48 Ketorolac Tromethamine 30 Mg/Ml Inj Administered 07/04/22 11:49 Dose 30 mg .ROUTE .STK-MED ONE Lisinopril 40 mg 07/05/22 10:00 07/05/22 09:41 Lisinopril 20 Mg Tablet PO 08/04/22 09:59 40 mg DAILY LUCÍA Administration Non-Formulary Medication 1 each 07/06/22 08:38 07/06/22 10:04 Pharmacy Dose Request: Vancomycin 1 Each IV 07/06/22 08:39 1 each STAT STA Administration Pantoprazole Sodium 40 mg 07/05/22 10:00 07/05/22 09:34 Pantoprazole 40 Mg Vial IV 08/04/22 09:59 40 mg Q24H10 LUCÍA Administration Potassium Chloride 20 meq 07/05/22 10:00 07/05/22 09:39 Potassium Chloride Tab 10 Meq Tab PO 08/04/22 09:59 20 meq DAILY LUCÍA Administration Intake & Output (Last 24 hours) 07/05/22 07/06/22 07/07/22 07/08/22 11:59 11:59 11:59 11:59 Intake Total 2628 4146 2888 600 Output Total 1050 600 500 Balance 1578 3546 2888 100 Weight 124 kg 127 kg 127.2 kg Laboratory Results (Last 24 hours) 07/07/22 07/07/22 07/07/22 15:16 11:30 06:40 WBC RBC Hgb Hct MCV MCH MCHC RDW Plt Count MPV Gran % Immature Gran % (Auto) Nucleat RBC Rel Count Eos # (Auto) Immature Gran # (Auto) Absolute Lymphs (auto) Absolute Monos (auto) Absolute Nucleated RBC Lymphocytes % Monocytes % Eosinophils % Basophils % Absolute Granulocytes Basophils # Sodium Potassium Chloride Carbon Dioxide Anion Gap BUN Creatinine Estimated GFR Glucose POC Glucometer 117 H 153 H 158 H Calcium Total Bilirubin AST ALT Alkaline Phosphatase Serum Total Protein Albumin Slides for Path Review 07/07/22 07/07/22 07/06/22 04:58 04:58 20:53 WBC 4.6 RBC 4.36 Hgb 12.3 Hct 39.5 MCV 90.6 MCH 28.2 MCHC 31.1 L RDW 14.4 H Plt Count 88 L MPV 11.0 Gran % 61.9 Immature Gran % (Auto) 0.2 Nucleat RBC Rel Count 0.0 Eos # (Auto) 0.14 Immature Gran # (Auto) 0.01 Absolute Lymphs (auto) 1.10 Absolute Monos (auto) 0.49 Absolute Nucleated RBC 0.00 Lymphocytes % 23.9 L Monocytes % 10.6 Eosinophils % 3.0 Basophils % 0.4 Absolute Granulocytes 2.85 Basophils # 0.02 Sodium 141 Potassium 3.9 Chloride 104 Carbon Dioxide 33 H Anion Gap 7.8 BUN 18 H Creatinine 0.70 Estimated GFR > 60.0 Glucose 178 H POC Glucometer 252 H Calcium 8.5 Total Bilirubin 0.60 AST 41 H ALT 23 Alkaline Phosphatase 107 Serum Total Protein 6.7 Albumin 3.2 L Slides for Path Review YES Orders (Last 24 hours) Category Date Time Status Consult Podiatry ROUTINE Cons 07/07/22 12:24 Active ANKLE (3 VIEWS) Stat Exams 07/07/22 16:08 Completed ANKLE (3 VIEWS) Stat Exams 07/07/22 16:09 Completed FEMUR Stat Exams 07/06/22 19:00 Completed FEMUR Stat Exams 07/06/22 19:00 Completed KNEE (3 VIEWS) Stat Exams 07/06/22 19:00 Completed KNEE (3 VIEWS) Stat Exams 07/06/22 19:00 Completed LOWER LEG Stat Exams 07/06/22 19:00 Completed LOWER LEG Stat Exams 07/06/22 19:00 Completed CBC W DIFF AM.LAB Lab 07/07/22 04:58 Completed CBC W DIFF AM.LAB Lab 07/08/22 04:00 Ordered CBC W DIFF AM.LAB Lab 07/09/22 04:00 Ordered CBC W DIFF AM.LAB Lab 07/10/22 04:00 Ordered CBC W DIFF AM.LAB Lab 07/11/22 04:00 Ordered CMP AM.LAB Lab 07/07/22 04:58 Completed CMP AM.LAB Lab 07/08/22 04:00 Ordered CMP AM.LAB Lab 07/09/22 04:00 Ordered CMP AM.LAB Lab 07/10/22 04:00 Ordered CMP AM.LAB Lab 07/11/22 04:00 Ordered POCT GLUCOSE Stat Lab 07/06/22 20:53 Completed POCT GLUCOSE Stat Lab 07/07/22 06:40 Completed POCT GLUCOSE Stat Lab 07/07/22 11:30 Completed POCT GLUCOSE Stat Lab 07/07/22 15:16 Completed Vancomycin, Trough Urgent Lab 07/08/22 09:30 Ordered Hydromorphone 1 mg/1Ml Inj [Hydromorphone 1 mg/ml Med 07/07/22 13:40 Active Injection] 1 mg IV Q3H PRN PRN Therapuetic Drug Level Monitor [Trough Drug Levels] Med 07/08/22 09:30 Once 1 IJ 1XONLY ONE PT Eval & Treat ( Order) ONCE PT 07/07/22 07:00 Active Patient Care Notes (Last 24 hours) 07/07/22 14:44 Physical Therapy Note by Cem(L#[id number]),Angela HOLD P.T. EVAL THIS DATE. AWAITING CONSULT FORM DR. CHUNG RE: FX MG'T AND WB. WILL MONITOR AND COMPLETE EVAL WHEN UPDATED ORDERS GIVEN. Initialized on 07/07/22 14:44 - END OF NOTE 07/06/22 18:30 Nursing Note by Melody Vital 1820 Assisted Pt to restroom with use of walker, Pt returning to bed, Pt suddenly went to kneeling position and then seated position on the floor. This RN continues at Pt's bedside during this incident. This RN unable to prevent Pt fall. This RN pushed call light for assistance, five staff with the aid of sheet under the Pt's arms assisted Pt to bed. Dr. Kleber Galloway notified of same. Initialized on 07/06/22 18:30 - END OF NOTE (2) Medial malleolar fracture Current Visit: Yes Status: Acute Code(s): S82.53XA - DISP FX OF MEDIAL MALLEOLUS OF UNSP TIBIA, INIT FOR CLOS FX (3) Venous insufficiency (chronic) (peripheral) Current Visit: Yes Status: Acute (4) Uncontrolled diabetes mellitus Current Visit: Yes Status: Chronic Qualifiers: Diabetes mellitus type: type 2 Glycemic state: with hyperglycemia Qualified Code(s): E11.65 - Type 2 diabetes mellitus with hyperglycemia Code(s): E11.65 - TYPE 2 DIABETES MELLITUS WITH HYPERGLYCEMIA
[2022-07-08 05:33] LABS: Absolute Neutrophil Ct (ANC) 2.33 x10^3/uL (1.4-6.9); BASOPHIL % 0.9 % (0.0-0.4); Basophil (Absolute #) 0.04 x10^3/uL (0-0.4); Eosinophil % 4.3 % (0.00-5.0); Hematocrit 36.2 % (35-47); Hemoglobin 11.2 g/dL (12.0-16.0); IMMATURE GRAN # 0.01 x10^3u/L (0.00-0.03); IMMATURE GRAN % 0.2 % (0.00-0.4); Lymphocyte (Absolute #) 1.39 x10^3/uL (1.0-4.6); Lymphocytes % 29.8 % (24.0-44.0); Mean Cell Volume 91.2 fL (78-100); Mean Corpuscular Hemoglobin 28.2 pg (26-32); Mean Corpuscular Hgb Concent. 30.9 g/dL (32-36); Mean Platelet Volume 11.2 fL (7.5-11.0); Neutrophil % 49.8 % (36.0-66.0); Platelet Count 85 x10^3/uL (150-450); Red Blood Count 3.97 x10^6/uL (4.1-5.4); Red Cell Distribution Width 14.4 % (11.5-14.0); White Blood Count 4.7 x10^3/uL (4.0-10.5)
[2022-07-08 06:19] LABS: ALBUMIN 2.8 g/dL (3.5-5.0); ALKALINE PHOSPHATASE 92 U/L (38-126); ANION GAP 4.8 MEQ/L (5-15); BLOOD UREA NITROGEN 18 mg/dL (7-17); CHLORIDE 104 mmol/L (98-107); Calcium 8.3 mg/dL (8.4-10.2); Carbon Dioxide 34 mmol/L (22-30); Creatinine 1 0.79 mg/dL (0.52-1.04); EST GLOMERULAR FILTRATION RATE > 60.0 ML/MIN; Glucose 94 mg/dL (74-106); Potassium 3.4 mmol/L (3.5-5.1); SGOT/AST 36 U/L (14-36); SGPT/ALT 21 U/L (0-35); SODIUM 139 mmol/L (137-145); Total Protein 6.2 g/dL (6.3-8.2)
[2022-07-08 06:30] LABS: Slide Review 1 YES
[2022-07-08] MEDS: Hydromorphone 1 mg/ml Injection IV PRN ×4 (07:26→20:40)
--- NOTE | 2022-07-08 08:13 | PCM.NOTE ---
Date and Time: 07/08/22810 Subjective Assessment: doing better - Review of Systems Constitutional: No Fever, No Chills Eyes: No Symptoms Ears, Nose, & Throat: No Symptoms Respiratory: No Cough, No Short Of Breath Cardiac: No Chest Pain, No Edema, No Syncope Abdominal/Gastrointestinal: No Abdominal Pain, No Nausea, No Vomiting, No Diarrhea Genitourinary Symptoms: No Dysuria Musculoskeletal: No Back Pain, No Neck Pain Skin: Cellulitis (right leg), No Rash Neurological: No Dizziness, No Focal Weakness, No Sensory Changes Psychological: No Symptoms Endocrine: No Symptoms Hematologic/Lymphatic: No Symptoms Immunological/Allergic: No Symptoms Objective Exam General Appearance: no apparent distress, alert Neurologic Exam: alert, oriented x 3, cooperative, normal mood/affect, nml cerebellar function, sensation nml, No motor deficits Skin Exam: normal color, warm, dry Wound Assessment: Skin/Wound Assessment Wound/Incision Assessment Start: 07/04/22 17:48 Text: Status: Active Freq: Q6H Protocol: Document 07/08/22 07:53 [facility] (Rec: 07/08/22 07:58 [facility] [id number]) Wound/Incision Assessment Right Lower Anterior Other Wound Assessment Shift Assessment Wound Type CELLULITIS Wound Stage Non Pressure Wound Dressing Status Dry & Intact Primary Dressing UNABOOTS Wound Photo Photo Taken No Eye Exam: PERRL, EOMI, eyes nml inspection Ears, Nose, Throat Exam: normal ENT inspection, pharynx normal, moist mucous membranes Neck Exam: normal inspection, non-tender, supple, full range of motion Respiratory Exam: normal breath sounds, lungs clear, No respiratory distress Cardiovascular Exam: regular rate/rhythm, normal heart sounds Gastrointestinal/Abdomen Exam: soft, No tenderness, No mass Extremity Exam: normal inspection, normal range of motion, inflammation Back Exam: normal inspection, normal range of motion, No CVA tenderness, No vertebral tenderness Pelvic Exam: deferred Rectal Exam: deferred OBJECTIVE DATA Vital Signs: Vital Signs - 24 hr Temp Pulse Resp BP Pulse Ox 07/08/22 07:53 98.0 F 79 15 120/57 94 L 07/08/22 05:00 98 F 80 16 124/60 93 L 07/07/22 23:35 98.7 F 82 18 138/63 94 L 07/07/22 19:34 98.1 F 83 18 142/60 94 L 07/07/22 19:10 82 18 94 L 07/07/22 16:34 98.0 F 80 14 130/61 94 L 07/07/22 12:01 98.0 F 77 14 160/70 91 L 07/07/22 11:45 79 12 93 L Pain Assessment - Last Documented Pain Intensity 8 Pain Scale Used 0-10 Pain Scale Intake and Output: Intake & Output 07/05/22 07/06/22 07/07/22 07/08/22 11:59 11:59 11:59 11:59 Intake Total 2628 4146 2888 1275 Output Total 4091 016 0450 Balance 1578 3546 2888 175 Weight 124 kg 127 kg 127.2 kg Lab Results: Lab Results-Last 24 Hours 07/07/22 07/07/22 07/07/22 Range/Units 11:30 15:16 21:23 WBC (4.0-10.5) x10^3/uL RBC (4.1-5.4) x10^6/uL Hgb (12.0-16.0) g/dL Hct (35-47) % MCV (78-100) fL MCH (26-32) pg MCHC (32-36) g/dL RDW (11.5-14.0) % Plt Count (150-450) x10^3/uL MPV (7.5-11.0) fL Gran % (36.0-66.0) % Immature Gran % (Auto) (0.00-0.4) % Nucleat RBC Rel Count (0.00-0.1) % Eos # (Auto) (0-0.5) x10^3/uL Immature Gran # (Auto) (0.00-0.03) x10^3u/L Absolute Lymphs (auto) (1.0-4.6) x10^3/uL Absolute Monos (auto) (0.0-1.3) x10^3/uL Absolute Nucleated RBC (0.00-0.01) x10^3u/L Lymphocytes % (24.0-44.0) % Monocytes % (0.0-12.0) % Eosinophils % (0.00-5.0) % Basophils % (0.0-0.4) % Absolute Granulocytes (1.4-6.9) x10^3/uL Basophils # (0-0.4) x10^3/uL Sodium (137-145) mmol/L Potassium (3.5-5.1) mmol/L Chloride (98-107) mmol/L Carbon Dioxide (22-30) mmol/L Anion Gap (5-15) MEQ/L BUN (7-17) mg/dL Creatinine (0.52-1.04) mg/dL Estimated GFR ML/MIN Glucose (74-106) mg/dL POC Glucometer 153 H 117 H 120 H (74 to 106) mg/dL Calcium (8.4-10.2) mg/dL Total Bilirubin (0.2-1.3) mg/dL AST (14-36) U/L ALT (0-35) U/L Alkaline Phosphatase (38-126) U/L Serum Total Protein (6.3-8.2) g/dL Albumin (3.5-5.0) g/dL Slides for Path Review 07/08/22 07/08/22 07/08/22 Range/Units 04:20 04:20 07:37 WBC 4.7 (4.0-10.5) x10^3/uL RBC 3.97 L (4.1-5.4) x10^6/uL Hgb 11.2 L (12.0-16.0) g/dL Hct 36.2 (35-47) % MCV 91.2 (78-100) fL MCH 28.2 (26-32) pg MCHC 30.9 L (32-36) g/dL RDW 14.4 H (11.5-14.0) % Plt Count 85 L (150-450) x10^3/uL MPV 11.2 H (7.5-11.0) fL Gran % 49.8 (36.0-66.0) % Immature Gran % (Auto) 0.2 (0.00-0.4) % Nucleat RBC Rel Count 0.0 (0.00-0.1) % Eos # (Auto) 0.20 (0-0.5) x10^3/uL Immature Gran # (Auto) 0.01 (0.00-0.03) x10^3u/L Absolute Lymphs (auto) 1.39 (1.0-4.6) x10^3/uL Absolute Monos (auto) 0.70 (0.0-1.3) x10^3/uL Absolute Nucleated RBC 0.00 (0.00-0.01) x10^3u/L Lymphocytes % 29.8 (24.0-44.0) % Monocytes % 15.0 H (0.0-12.0) % Eosinophils % 4.3 (0.00-5.0) % Basophils % 0.9 (0.0-0.4) % Absolute Granulocytes 2.33 (1.4-6.9) x10^3/uL Basophils # 0.04 (0-0.4) x10^3/uL Sodium 139 (137-145) mmol/L Potassium 3.4 L (3.5-5.1) mmol/L Chloride 104 (98-107) mmol/L Carbon Dioxide 34 H (22-30) mmol/L Anion Gap 4.8 L (5-15) MEQ/L BUN 18 H (7-17) mg/dL Creatinine 0.79 (0.52-1.04) mg/dL Estimated GFR > 60.0 ML/MIN Glucose 94 (74-106) mg/dL POC Glucometer 99 (74 to 106) mg/dL Calcium 8.3 L (8.4-10.2) mg/dL Total Bilirubin 0.60 (0.2-1.3) mg/dL AST 36 (14-36) U/L ALT 21 (0-35) U/L Alkaline Phosphatase 92 (38-126) U/L Serum Total Protein 6.2 L (6.3-8.2) g/dL Albumin 2.8 L (3.5-5.0) g/dL Slides for Path Review YES Radiology Exams: Radiology Procedures Category Date Time Status ANKLE (3 VIEWS) Stat Exams 07/07/22 16:08 Completed ANKLE (3 VIEWS) Stat Exams 07/07/22 16:09 Completed FEMUR Stat Exams 07/06/22 19:00 Completed FEMUR Stat Exams 07/06/22 19:00 Completed KNEE (3 VIEWS) Stat Exams 07/06/22 19:00 Completed KNEE (3 VIEWS) Stat Exams 07/06/22 19:00 Completed LOWER LEG Stat Exams 07/06/22 19:00 Completed LOWER LEG Stat Exams 07/06/22 19:00 Completed Multi-Disciplinary Progress Notes: Multi-Disciplinary Progress Notes 07/07/22 14:44 Physical Therapy Note by Cem([id number])Angela HOLD P.T. EVAL THIS DATE. AWAITING CONSULT FORM DR. CHUNG RE: FX MG'T AND WB. WILL MONITOR AND COMPLETE EVAL WHEN UPDATED ORDERS GIVEN. Initialized on 07/07/22 14:44 - END OF NOTE Assessment/Plan (1) Cellulitis, leg Current Visit: Yes Status: Acute Qualifiers: Laterality: right Qualified Code(s): L03.115 - Cellulitis of right lower limb Assessment & Plan: Chief Complaint Diagnosis CELLULITIS, UNCONTROLLED DM Allergies Allergy/AdvReac Type Severity Reaction Status Date / Time adhesive tape AdvReac Intermediate Verified 07/04/22 17:05 Vital Signs (Last 24 hours) Temp Pulse Resp BP Pulse Ox 07/08/22 07:53 98.0 F 79 15 120/57 94 L 07/08/22 05:00 98 F 80 16 124/60 93 L 07/07/22 23:35 98.7 F 82 18 138/63 94 L 07/07/22 19:34 98.1 F 83 18 142/60 94 L 07/07/22 19:10 82 18 94 L 07/07/22 16:34 98.0 F 80 14 130/61 94 L 07/07/22 12:01 98.0 F 77 14 160/70 91 L 07/07/22 11:45 79 12 93 L Home Medications Medication Instructions Recorded Confirmed Last Taken Type Albuterol Sulfate [Albuterol 1 puff IH Q4HPRN PRN 07/04/22 07/04/22 Unknown History Sulfate Hfa] Gabapentin Enacarbil [Horizant] 600 mg PO 00,199907/04/22 07/04/22 07/04/22 History Oxycodone HCl/Acetaminophen 1 each PO TID 07/04/22 07/04/22 07/04/22 History [Percocet 5-325 mg Tablet] Pramipexole Di-HCl 0.5 mg 0.5 mg PO BID 07/04/22 07/04/22 07/04/22 History [Mirapex 0.5 MG Tablet] Current Medications Generic Name Dose Route Start Last Admin Trade Name Freq PRN Reason Stop Dose Admin Acetaminophen 650 mg 07/04/22 16:15 07/04/22 20:15 Acetaminophen 325 Mg Tablet PO 08/03/22 16:14 650 mg Q4H PRN PRN Administration PAIN AND/OR FEVER Albuterol Sulfate 1 puff 07/05/22 14:01 Albuterol Common Canister Inhaler IH 08/04/22 14:00 Q4HPRN PRN SHORTNESS OF BREATH/WHEEZING Device 1 07/08/22 09:30 Therapuetic Drug Level Monitor Each IJ 07/08/22 09:31 1XONLY ONE Enoxaparin Sodium 40 mg 07/04/22 17:00 07/07/22 09:04 Enoxaparin Sodium 40 Mg/0.4 Ml Syringe SQ 08/03/22 16:59 40 mg DAILY LUCÍA Administration Famotidine 20 mg 07/04/22 22:00 07/07/22 21:35 Famotidine 20 Mg/1 Vial IV 08/03/22 21:59 20 mg Q12HT LUCÍA Administration Furosemide 40 mg 07/05/22 10:00 07/07/22 09:04 Furosemide 40 Mg Tablet PO 08/04/22 09:59 40 mg DAILY LUCÍA Administration Gabapentin 600 mg 07/05/22 20:00 07/07/22 19:55 Gabapentin 300 Mg Capsule PO 08/03/22 21:59 600 mg 0800,2000 LUCÍA Administration Hydromorphone HCl 1 mg 07/07/22 13:40 07/08/22 07:26 Hydromorphone 1 Mg/1ml Inj 1 Mg/Ml Syringe IV 07/12/22 13:39 1 mg Q3H PRN PRN Administration PAIN Sodium Chloride 1,000 mls @ 100 mls/hr 07/04/22 11:45 07/06/22 14:46 Sodium Chloride 0.9% 1000 Ml IV 08/03/22 11:44 100 mls/hr .Q10H LUCÍA Administration Ceftriaxone Sodium/Dextrose 1 g in 50 mls @ 100 mls/hr 07/05/22 10:00 07/07/22 09:30 Rocephin 1 Gm-D5w 50 Ml Bag IV 07/09/22 09:59 100 mls/hr Q24H10 LUCÍA Administration Vancomycin HCl 1.25 gm in 250 mls @ 166.667 mls/hr 07/06/22 10:00 07/07/22 21:36 Vancomycin 1.25 Gm/250 Ml Bag IV 07/09/22 09:59 166.667 mls/hr Q12HT LUCÍA Administration Insulin Glargine 80 unit 07/05/22 22:00 07/07/22 21:36 Insulin Glargine 1 Unit SQ 08/03/22 21:59 40 unit BID LUCÍA Administration Insulin Human Regular 0 unit 07/04/22 16:15 07/07/22 11:57 Insulin Regular, Human 1 Unit SQ 08/03/22 16:14 3 unit UD PRN Administration HYPERGLYCEMIA Lisinopril 20 mg 07/05/22 22:00 07/07/22 21:35 Lisinopril 20 Mg Tablet PO 08/04/22 09:59 20 mg BID LUCÍA Administration Ondansetron HCl 4 mg 07/04/22 16:15 07/07/22 21:42 Ondansetron Hcl 4 Mg/2 Ml Vial IV 08/03/22 16:14 4 mg Q6H PRN PRN Administration NAUSEA/VOMITING Oxycodone/Acetaminophen 1 tab 07/05/22 15:00 07/07/22 21:35 Oxycodone Hcl/Apap 5 Mg/325 Mg Tablet PO 07/10/22 14:59 1 tab TID LUCÍA Administration Pantoprazole Sodium 40 mg 07/05/22 22:00 07/07/22 21:35 Protonix (Pantoprazole) 40 Mg Tablet PO 08/04/22 21:59 40 mg BID LUCÍA Administration Potassium Chloride 10 meq 07/06/22 10:00 07/07/22 09:05 Potassium Chloride Tab 10 Meq Tab PO 08/04/22 09:59 10 meq DAILY LUCÍA Administration Pramipexole Dihydrochloride 0.5 mg 07/05/22 22:00 07/07/22 21:35 Pramipexole Di-Hcl 0.5 Mg Tab PO 08/04/22 21:59 0.5 mg BID LUCÍA Administration Simvastatin 20 mg 07/05/22 14:00 07/07/22 09:05 Simvastatin 20 Mg Tablet PO 08/04/22 13:59 20 mg DAILY LUCÍA Administration Discontinued Medications Generic Name Dose Route Start Last Admin Trade Name Lori PRN Reason Stop Dose Admin Gabapentin 600 mg 07/04/22 22:00 07/05/22 09:43 Gabapentin 300 Mg Capsule PO 08/03/22 21:59 600 mg TID LUCÍA Administration Hydromorphone HCl 1 mg 07/04/22 13:21 07/04/22 13:36 Hydromorphone 1 Mg/1ml Inj 1 Mg/Ml Syringe IV 07/04/22 13:22 1 mg STAT ONE Administration Hydromorphone HCl Confirm 07/04/22 13:32 Hydromorphone 1 Mg/1ml Inj 1 Mg/Ml Syringe Administered 07/04/22 13:33 Dose 1 mg .ROUTE .STK-MED ONE Hydromorphone HCl 1 mg 07/04/22 16:00 07/04/22 16:26 Hydromorphone 1 Mg/1ml Inj 1 Mg/Ml Syringe IV 07/04/22 16:01 Not Given STAT ONE Hydromorphone HCl Confirm 07/04/22 16:15 Hydromorphone 1 Mg/1ml Inj 1 Mg/Ml Syringe Administered 07/04/22 16:16 Dose 1 mg .ROUTE .STK-MED ONE Hydromorphone HCl 1 mg 07/04/22 16:15 07/07/22 12:57 Hydromorphone 1 Mg/1ml Inj 1 Mg/Ml Syringe IV 07/09/22 16:14 1 mg Q4H PRN PRN Administration PAIN Ceftriaxone Sodium/Dextrose 1 g in 50 mls @ 100 mls/hr 07/04/22 11:47 07/04/22 12:42 Rocephin 1 Gm-D5w 50 Ml Bag IV 07/04/22 12:16 Infused STAT STA Infusion Ceftriaxone Sodium/Dextrose Confirm 07/04/22 11:55 Rocephin 1 Gm-D5w 50 Ml Bag Administered 07/04/22 11:56 Dose 1 g in 50 mls @ ud IV .STK-MED ONE Insulin Glargine 80 unit 07/04/22 22:00 07/04/22 22:29 Insulin Glargine 1 Unit SQ 08/03/22 21:59 80 unit HS LUCÍA Administration Insulin Human Regular 10 unit 07/04/22 13:20 07/04/22 13:37 Insulin Regular, Human 1 Unit IV 07/04/22 13:21 10 unit STAT ONE Administration Insulin Human Regular Confirm 07/04/22 13:32 Insulin Regular, Human 1 Unit Administered 07/04/22 13:33 Dose 10 unit .ROUTE .STK-MED ONE Insulin Human Regular 10 unit 07/04/22 14:23 07/04/22 14:26 Insulin Regular, Human 1 Unit IV 07/04/22 14:24 Not Given STAT ONE Insulin Human Regular 10 unit 07/04/22 14:21 07/04/22 14:30 Insulin Regular, Human 1 Unit IV 07/04/22 14:22 10 unit STAT ONE Administration Insulin Human Regular Confirm 07/04/22 14:28 Insulin Regular, Human 1 Unit Administered 07/04/22 14:29 Dose 10 unit .ROUTE .STK-MED ONE Ketorolac Tromethamine 30 mg 07/04/22 11:45 07/04/22 11:49 Ketorolac Tromethamine 30 Mg/Ml Inj IV 07/04/22 11:46 30 mg STAT ONE Administration Ketorolac Tromethamine Confirm 07/04/22 11:48 Ketorolac Tromethamine 30 Mg/Ml Inj Administered 07/04/22 11:49 Dose 30 mg .ROUTE .STK-MED ONE Lisinopril 40 mg 07/05/22 10:00 07/05/22 09:41 Lisinopril 20 Mg Tablet PO 08/04/22 09:59 40 mg DAILY LUCÍA Administration Non-Formulary Medication 1 each 07/06/22 08:38 07/06/22 10:04 Pharmacy Dose Request: Vancomycin 1 Each IV 07/06/22 08:39 1 each STAT STA Administration Pantoprazole Sodium 40 mg 07/05/22 10:00 07/05/22 09:34 Pantoprazole 40 Mg Vial IV 08/04/22 09:59 40 mg Q24H10 LUCÍA Administration Potassium Chloride 20 meq 07/05/22 10:00 07/05/22 09:39 Potassium Chloride Tab 10 Meq Tab PO 08/04/22 09:59 20 meq DAILY LUCÍA Administration Intake & Output (Last 24 hours) 02/04/23 02/05/23 02/06/23 02/07/23 11:59 11:59 11:59 11:59 Intake Total 2624 4145 2888 1275 Output Total 3524 863 5663 Balance 1578 6176 2888 175 Weight 124 kg 127 kg 127.2 kg Laboratory Results (Last 24 hours) 07/08/22 07/08/22 07/08/22 07:37 04:20 04:20 WBC 4.7 RBC 3.97 L Hgb 11.2 L Hct 36.2 MCV 91.2 MCH 28.2 MCHC 30.9 L RDW 14.4 H Plt Count 85 L MPV 11.2 H Gran % 49.8 Immature Gran % (Auto) 0.2 Nucleat RBC Rel Count 0.0 Eos # (Auto) 0.20 Immature Gran # (Auto) 0.01 Absolute Lymphs (auto) 1.39 Absolute Monos (auto) 0.70 Absolute Nucleated RBC 0.00 Lymphocytes % 29.8 Monocytes % 15.0 H Eosinophils % 4.3 Basophils % 0.9 Absolute Granulocytes 2.33 Basophils # 0.04 Sodium 139 Potassium 3.4 L Chloride 104 Carbon Dioxide 34 H Anion Gap 4.8 L BUN 18 H Creatinine 0.79 Estimated GFR > 60.0 Glucose 94 POC Glucometer 99 Calcium 8.3 L Total Bilirubin 0.60 AST 36 ALT 21 Alkaline Phosphatase 92 Serum Total Protein 6.2 L Albumin 2.8 L Slides for Path Review YES 07/07/22 07/07/22 07/07/22 21:23 15:16 11:30 WBC RBC Hgb Hct MCV MCH MCHC RDW Plt Count MPV Gran % Immature Gran % (Auto) Nucleat RBC Rel Count Eos # (Auto) Immature Gran # (Auto) Absolute Lymphs (auto) Absolute Monos (auto) Absolute Nucleated RBC Lymphocytes % Monocytes % Eosinophils % Basophils % Absolute Granulocytes Basophils # Sodium Potassium Chloride Carbon Dioxide Anion Gap BUN Creatinine Estimated GFR Glucose POC Glucometer 120 H 117 H 153 H Calcium Total Bilirubin AST ALT Alkaline Phosphatase Serum Total Protein Albumin Slides for Path Review Orders (Last 24 hours) Category Date Time Status Consult Podiatry ROUTINE Cons 07/07/22 12:24 Completed ANKLE (3 VIEWS) Stat Exams 07/07/22 16:08 Completed ANKLE (3 VIEWS) Stat Exams 07/07/22 16:09 Completed CBC W DIFF AM.LAB Lab 07/08/22 04:20 Completed CBC W DIFF AM.LAB Lab 07/09/22 04:00 Ordered CBC W DIFF AM.LAB Lab 07/10/22 04:00 Ordered CBC W DIFF AM.LAB Lab 07/11/22 04:00 Ordered CMP AM.LAB Lab 07/08/22 04:20 Completed CMP AM.LAB Lab 07/09/22 04:00 Ordered CMP AM.LAB Lab 07/10/22 04:00 Ordered CMP AM.LAB Lab 07/11/22 04:00 Ordered POCT GLUCOSE Stat Lab 07/07/22 11:30 Completed POCT GLUCOSE Stat Lab 07/07/22 15:16 Completed POCT GLUCOSE Stat Lab 07/07/22 21:23 Completed POCT GLUCOSE Stat Lab 07/08/22 07:37 Completed Vancomycin, Trough Urgent Lab 07/08/22 09:30 Ordered Hydromorphone 1 mg/1Ml Inj [Hydromorphone 1 mg/ml Med 07/07/22 13:40 Active Injection] 1 mg IV Q3H PRN PRN Therapuetic Drug Level Monitor [Trough Drug Levels] Med 07/08/22 09:30 Once 1 IJ 1XONLY ONE Patient Care Notes (Last 24 hours) 07/07/22 14:44 Physical Therapy Note by Cem([id number])Angela HOLD P.T. EVAL THIS DATE. AWAITING CONSULT FORM DR. CHUNG RE: FX MG'T AND WB. WILL MONITOR AND COMPLETE EVAL WHEN UPDATED ORDERS GIVEN. Initialized on 07/07/22 14:44 - END OF NOTE (2) Medial malleolar fracture Current Visit: Yes Status: Acute Code(s): S82.53XA - DISP FX OF MEDIAL MALLEOLUS OF UNSP TIBIA, INIT FOR CLOS FX (3) Venous insufficiency (chronic) (peripheral) Current Visit: Yes Status: Acute (4) Uncontrolled diabetes mellitus Current Visit: Yes Status: Chronic Qualifiers: Diabetes mellitus type: type 2 Glycemic state: with hyperglycemia Qualified Code(s): E11.65 - Type 2 diabetes mellitus with hyperglycemia Code(s): E11.65 - TYPE 2 DIABETES MELLITUS WITH HYPERGLYCEMIA
[2022-07-08] MEDS: ROCEPHIN 1 Gm-D5w 50 ml Bag** 1 G/50 ML IVPB IV SCH (09:01)
[2022-07-08] MEDS: Mirapex 0.5 MG Tablet PO SCH ×2 (09:02→20:40)
[2022-07-08] MEDS: ZOCOR 20MG PO SCH (09:02)
[2022-07-08] MEDS: NEURONTIN PO SCH ×2 (09:02→20:41)
[2022-07-08] MEDS: Lasix 40 MG PO SCH (09:03)
[2022-07-08] MEDS: Pepcid 20 MG VIAL IV SCH ×2 (09:03→20:41)
[2022-07-08] MEDS: Klor Con PO SCH (09:03)
[2022-07-08] MEDS: Protonix 40MG Tablet PO SCH ×2 (09:03→20:41)
[2022-07-08] MEDS: Zestril 20 MG PO SCH ×2 (09:03→20:41)
[2022-07-08] MEDS: Lantus Insulin SQ SCH ×2 (09:04→22:24)
[2022-07-08] MEDS: ENOXAPARIN SODIUM SQ SCH (09:07)
[2022-07-08] MEDS: PERCOCET TABLET 5/325MG PO SCH ×4 (09:08→22:03)
[2022-07-08] MEDS ORDERED: TROUGH DRUG LEVELS IJ ONE ×2 (09:30→21:30)
--- NOTE | 2022-07-08 10:31 | XRAY ---
Indication: senior care placement. Comparison: July 22, 2020 Portable chest demonstrates normal heart and lungs. Bony thorax intact again with mild degenerative changes. No new/acute findings.
[2022-07-08] MEDS: VANCOMYCIN 1.25 GM/250 ML BAG 1.25 GM/250 ML PIGGYBACK IV SCH ×2 (12:24→22:03)
[2022-07-08] MEDS ORDERED: D50W 50 ml Abboject IV ONE ×2 (12:55→12:59)
--- NOTE | 2022-07-08 13:26 | PCM.CONS ---
Podiatry HPI - Consult Date of Consultation Date: 07/08/22 Consulting Provider: SHELDON HOSKINS DPM - [facility] History of Present Illness: Doing OK Medications & Allergies Home Medications: Home Medication List Lisinopril 20 mg [Zestril 20 MG] 20 mg PO BID 08/25/12 [History Confirmed 07/04/22] Furosemide [Lasix] 40 mg PO DAILY 10/06/13 [History Confirmed 07/04/22] Atorvastatin Calcium [Lipitor 20MG Tablet] 20 mg PO DAILY 06/11/17 [History Confirmed 07/04/22] Insulin Glargine,Hum.rec.anlog [Basaglar Kwikpen U-100] 80 unit SQ BID 06/11/17 [History Confirmed 07/04/22] Potassium Chloride Tab* [Klor Con] 10 meq PO DAILY 06/11/17 [History Confirmed 07/04/22] Buprenorphine HCl [Belbuca] 750 mcg PO 0800,199907/31/17 [History Confirmed 07/04/22] Omeprazole 20 MG [Prilosec 20 mg] 40 mg PO BID 07/31/17 [History Confirmed 07/04/22] Insulin Lispro [Admelog Solostar] 0 unit SQ ACHS 07/22/20 [History Confirmed 07/04/22] Albuterol Sulfate [Albuterol Sulfate Hfa] 1 puff IH Q4HPRN PRN 07/04/22 [History Confirmed 07/04/22] Gabapentin Enacarbil [Horizant] 600 mg PO 0800,199907/04/22 [History Confirmed 07/04/22] Oxycodone HCl/Acetaminophen [Percocet 5-325 mg Tablet] 1 each PO TID 07/04/22 [History Confirmed 07/04/22] Pramipexole Di-HCl 0.5 mg [Mirapex 0.5 MG Tablet] 0.5 mg PO BID 07/04/22 [History Confirmed 07/04/22] Allergies/Adverse Reactions: Allergies Allergy/AdvReac Type Severity Reaction Status Date / Time adhesive tape AdvReac Intermediate Verified 07/04/22 17:05 - Past Medical History Past Medical History: Yes Neurological History: No Pertinent History ENT History: No Pertinent History Cardiac History: Deep Vein Thrombosis, High Cholesterol, Hypertension Respiratory History: CHF Endocrine Medical History: Diabetes Type II Musculoskelatal History: Rheumatoid Arthritis GI Medical History: No Pertinent History History: No Pertinent History Pyscho-Social History: No Pertinent History Reproductive Disorders: No Pertinent History Comment: BURSITIS TO BOTH SHOULDERS, NEUROPATHY THROUGHOUT HER BODY - Female History Are you now?: No - Past Surgical History Past Surgical History: Yes Neuro Surgical History: No Pertinent History Cardiac History: No Pertinent History Respiratory Surgery: No Pertinent History GI Surgical History: Other Genitourinary Surgical Hx: No Pertinent History Musculskeletal Surgical Hx: No Pertinent History Female Surgical History: Tubal Ligation, Other Other Surgical History: d & c, (rectal surgery x3, cyst removed from rectum). cyst removed from pancreas - Social History Smoking Status: Never smoker Exposure to second hand smoke: Yes Alcohol: None Drug Use: none Significant Family History: no pertinent family hx Physical Exam - Narrative Narrative Physical Exam: Podiatry Physical Exam Results - Labs Lab/Micro Results: Lab Results-Last 24 Hours 07/07/22 07/07/22 07/08/22 Range/Units 15:16 21:23 04:20 WBC 4.7 (4.0-10.5) x10^3/uL RBC 3.97 L (4.1-5.4) x10^6/uL Hgb 11.2 L (12.0-16.0) g/dL Hct 36.2 (35-47) % MCV 91.2 (78-100) fL MCH 28.2 (26-32) pg MCHC 30.9 L (32-36) g/dL RDW 14.4 H (11.5-14.0) % Plt Count 85 L (150-450) x10^3/uL MPV 11.2 H (7.5-11.0) fL Gran % 49.8 (36.0-66.0) % Immature Gran % (Auto) 0.2 (0.00-0.4) % Nucleat RBC Rel Count 0.0 (0.00-0.1) % Eos # (Auto) 0.20 (0-0.5) x10^3/uL Immature Gran # (Auto) 0.01 (0.00-0.03) x10^3u/L Absolute Lymphs (auto) 1.39 (1.0-4.6) x10^3/uL Absolute Monos (auto) 0.70 (0.0-1.3) x10^3/uL Absolute Nucleated RBC 0.00 (0.00-0.01) x10^3u/L Lymphocytes % 29.8 (24.0-44.0) % Monocytes % 15.0 H (0.0-12.0) % Eosinophils % 4.3 (0.00-5.0) % Basophils % 0.9 (0.0-0.4) % Absolute Granulocytes 2.33 (1.4-6.9) x10^3/uL Basophils # 0.04 (0-0.4) x10^3/uL Sodium (137-145) mmol/L Potassium (3.5-5.1) mmol/L Chloride (98-107) mmol/L Carbon Dioxide (22-30) mmol/L Anion Gap (5-15) MEQ/L BUN (7-17) mg/dL Creatinine (0.52-1.04) mg/dL Estimated GFR ML/MIN Glucose (74-106) mg/dL POC Glucometer 117 H 120 H (74 to 106) mg/dL Calcium (8.4-10.2) mg/dL Total Bilirubin (0.2-1.3) mg/dL AST (14-36) U/L ALT (0-35) U/L Alkaline Phosphatase (38-126) U/L Serum Total Protein (6.3-8.2) g/dL Albumin (3.5-5.0) g/dL Vancomycin Trough (10-20) ug/mL Slides for Path Review YES 07/08/22 07/08/22 07/08/22 Range/Units 04:20 07:37 09:13 WBC (4.0-10.5) x10^3/uL RBC (4.1-5.4) x10^6/uL Hgb (12.0-16.0) g/dL Hct (35-47) % MCV (78-100) fL MCH (26-32) pg MCHC (32-36) g/dL RDW (11.5-14.0) % Plt Count (150-450) x10^3/uL MPV (7.5-11.0) fL Gran % (36.0-66.0) % Immature Gran % (Auto) (0.00-0.4) % Nucleat RBC Rel Count (0.00-0.1) % Eos # (Auto) (0-0.5) x10^3/uL Immature Gran # (Auto) (0.00-0.03) x10^3u/L Absolute Lymphs (auto) (1.0-4.6) x10^3/uL Absolute Monos (auto) (0.0-1.3) x10^3/uL Absolute Nucleated RBC (0.00-0.01) x10^3u/L Lymphocytes % (24.0-44.0) % Monocytes % (0.0-12.0) % Eosinophils % (0.00-5.0) % Basophils % (0.0-0.4) % Absolute Granulocytes (1.4-6.9) x10^3/uL Basophils # (0-0.4) x10^3/uL Sodium 139 (137-145) mmol/L Potassium 3.4 L (3.5-5.1) mmol/L Chloride 104 (98-107) mmol/L Carbon Dioxide 34 H (22-30) mmol/L Anion Gap 4.8 L (5-15) MEQ/L BUN 18 H (7-17) mg/dL Creatinine 0.79 (0.52-1.04) mg/dL Estimated GFR > 60.0 ML/MIN Glucose 94 (74-106) mg/dL POC Glucometer 99 96 (74 to 106) mg/dL Calcium 8.3 L (8.4-10.2) mg/dL Total Bilirubin 0.60 (0.2-1.3) mg/dL AST 36 (14-36) U/L ALT 21 (0-35) U/L Alkaline Phosphatase 92 (38-126) U/L Serum Total Protein 6.2 L (6.3-8.2) g/dL Albumin 2.8 L (3.5-5.0) g/dL Vancomycin Trough (10-20) ug/mL Slides for Path Review 07/08/22 07/08/22 Range/Units 09:40 11:12 WBC (4.0-10.5) x10^3/uL RBC (4.1-5.4) x10^6/uL Hgb (12.0-16.0) g/dL Hct (35-47) % MCV (78-100) fL MCH (26-32) pg MCHC (32-36) g/dL RDW (11.5-14.0) % Plt Count (150-450) x10^3/uL MPV (7.5-11.0) fL Gran % (36.0-66.0) % Immature Gran % (Auto) (0.00-0.4) % Nucleat RBC Rel Count (0.00-0.1) % Eos # (Auto) (0-0.5) x10^3/uL Immature Gran # (Auto) (0.00-0.03) x10^3u/L Absolute Lymphs (auto) (1.0-4.6) x10^3/uL Absolute Monos (auto) (0.0-1.3) x10^3/uL Absolute Nucleated RBC (0.00-0.01) x10^3u/L Lymphocytes % (24.0-44.0) % Monocytes % (0.0-12.0) % Eosinophils % (0.00-5.0) % Basophils % (0.0-0.4) % Absolute Granulocytes (1.4-6.9) x10^3/uL Basophils # (0-0.4) x10^3/uL Sodium (137-145) mmol/L Potassium (3.5-5.1) mmol/L Chloride (98-107) mmol/L Carbon Dioxide (22-30) mmol/L Anion Gap (5-15) MEQ/L BUN (7-17) mg/dL Creatinine (0.52-1.04) mg/dL Estimated GFR ML/MIN Glucose (74-106) mg/dL POC Glucometer 114 H (74 to 106) mg/dL Calcium (8.4-10.2) mg/dL Total Bilirubin (0.2-1.3) mg/dL AST (14-36) U/L ALT (0-35) U/L Alkaline Phosphatase (38-126) U/L Serum Total Protein (6.3-8.2) g/dL Albumin (3.5-5.0) g/dL Vancomycin Trough 25.33 H (10-20) ug/mL Slides for Path Review Accuchecks Date 07/08/22 Date 07/08/22 Date 07/07/22 Date 07/07/22 Time 11:53 Time 08:00 Time 16:34 - Radiology Impressions Radiology Exams & Impressions: Radiology Procedures Category Date Time Status ANKLE (3 VIEWS) Stat Exams 07/07/22 16:08 Completed ANKLE (3 VIEWS) Stat Exams 07/07/22 16:09 Completed CHEST 1 VIEW (PORTABLE) Urgent Exams 07/08/22 09:06 Completed FEMUR Stat Exams 07/06/22 19:00 Completed FEMUR Stat Exams 07/06/22 19:00 Completed KNEE (3 VIEWS) Stat Exams 07/06/22 19:00 Completed KNEE (3 VIEWS) Stat Exams 07/06/22 19:00 Completed LOWER LEG Stat Exams 07/06/22 19:00 Completed LOWER LEG Stat Exams 07/06/22 19:00 Completed Assessment/Plan (1) Venous insufficiency (chronic) (peripheral) Current Visit: Yes Status: Acute Assessment & Plan: Radiographs reviewed.Right ankle with displaced medial malleolar fracture Based on clinical examination, review of medical record and radiographs at this time; patient is not a good surgical candidate. Discussed possible non weight bearing and imrpovement of A1c prior to surgical intervention in favor of a arthrodesis. Patient will consider this option. For venous insufficicency ulceration to the right leg. debridement preformed revealing full thickness ulceration with serous drainage. negative for any obvious signs of purulence. Patient would benefit from compression therapy consisting of unna boots to the bilateral lower extremity. Patient has had right leg DVT historically. Ultrasound at this time demonstrates no venous occlusions. Recommend wheel chair on discharge- paient has signficant mobility limitations that singficantly impairs the ability to participate in bathing, grooming, dressing and toileting herself that which cannot be resolved with the use of a walker or a cane. Patients home has adequate room for MWC. Patient is physically and mentally able with UE function to operate MW. Non weight bearing to right lower extremity stressed at this time. (2) Ulcer of varicose vein of right leg Current Visit: Yes Status: Acute Code(s): I83.019 - VARICOSE VEINS OF RIGHT LOWER EXTREMITY W ULCER OF UNSP SITE; L97.919 - NON-PRS CHRONIC ULC UNSP PRT OF R LOW LEG W UNSP SEVERITY (3) Medial malleolar fracture Current Visit: Yes Status: Acute Code(s): S82.53XA - DISP FX OF MEDIAL MALLEOLUS OF UNSP TIBIA, INIT FOR CLOS FX (4) Osteoarthritis of ankle and foot Current Visit: Yes Status: Acute Code(s): M19.079 - PRIMARY OSTEOARTHRITIS, UNSPECIFIED ANKLE AND FOOT (5) Cellulitis, leg Current Visit: Yes Status: Acute Qualifiers: Laterality: right Qualified Code(s): L03.115 - Cellulitis of right lower limb (6) DVT prophylaxis Current Visit: Yes Status: Acute (7) Uncontrolled diabetes mellitus Current Visit: Yes Status: Chronic Qualifiers: Diabetes mellitus type: type 2 Glycemic state: with hyperglycemia Qualified Code(s): E11.65 - Type 2 diabetes mellitus with hyperglycemia Code(s): E11.65 - TYPE 2 DIABETES MELLITUS WITH HYPERGLYCEMIA
[2022-07-08 15:04] LABS: BASOPHIL % 0.7 % (0.0-0.4); Basophil (Absolute #) 0.03 x10^3/uL (0-0.4); Eosinophil % 3.5 % (0.00-5.0); Eosinophil (Absolute #) 0.16 x10^3/uL (0-0.5); Hematocrit 37.9 % (35-47); Hemoglobin 11.9 g/dL (12.0-16.0); IMMATURE GRAN # 0.01 x10^3u/L (0.00-0.03); IMMATURE GRAN % 0.2 % (0.00-0.4); Lymphocyte (Absolute #) 1.11 x10^3/uL (1.0-4.6); Lymphocytes % 24.2 % (24.0-44.0); Mean Cell Volume 90.5 fL (78-100); Mean Corpuscular Hemoglobin 28.4 pg (26-32); Mean Corpuscular Hgb Concent. 31.4 g/dL (32-36); Mean Platelet Volume 11.7 fL (7.5-11.0); Monocyte (Absolute #) 0.57 x10^3/uL (0.0-1.3); Monocytes % 12.4 % (0.0-12.0); Platelet Count 86 x10^3/uL (150-450); Red Blood Count 4.19 x10^6/uL (4.1-5.4); Red Cell Distribution Width 14.6 % (11.5-14.0); White Blood Count 4.6 x10^3/uL (4.0-10.5)
[2022-07-08 15:17] LABS: ALKALINE PHOSPHATASE 98 U/L (38-126); BLOOD UREA NITROGEN 18 mg/dL (7-17); CHLORIDE 103 mmol/L (98-107); Calcium 8.4 mg/dL (8.4-10.2); Carbon Dioxide 34 mmol/L (22-30); Creatinine 1 0.79 mg/dL (0.52-1.04); EST GLOMERULAR FILTRATION RATE > 60.0 ML/MIN; Glucose 156 mg/dL (74-106); Potassium 3.8 mmol/L (3.5-5.1); SGOT/AST 37 U/L (14-36); SGPT/ALT 21 U/L (0-35); SODIUM 138 mmol/L (137-145); Total Protein 6.4 g/dL (6.3-8.2)
--- NOTE | 2022-07-08 16:31 | XRAY ---
Indication: Drowsiness. Multiple contiguous axial images obtained through the head without contrast. Comparison: July 31, 2017 Normal appearing brain parenchyma, ventricles, and bony calvarium for patient's age. Visualized paranasal sinuses and mastoid air cells are clear. Impression: Continued normal CT head without contrast exam.
[2022-07-09] MEDS: Hydromorphone 1 mg/ml Injection IV PRN (03:00)
[2022-07-09 05:13] LABS: Absolute Neutrophil Ct (ANC) 2.56 x10^3/uL (1.4-6.9); BASOPHIL % 0.6 % (0.0-0.4); Basophil (Absolute #) 0.03 x10^3/uL (0-0.4); Eosinophil % 4.8 % (0.00-5.0); Eosinophil (Absolute #) 0.24 x10^3/uL (0-0.5); Hematocrit 35.2 % (35-47); Hemoglobin 11.1 g/dL (12.0-16.0); IMMATURE GRAN # 0.01 x10^3u/L (0.00-0.03); IMMATURE GRAN % 0.2 % (0.00-0.4); Lymphocytes % 28.1 % (24.0-44.0); Mean Cell Volume 90.3 fL (78-100); Mean Corpuscular Hemoglobin 28.5 pg (26-32); Mean Corpuscular Hgb Concent. 31.5 g/dL (32-36); Mean Platelet Volume 11.6 fL (7.5-11.0); Monocyte (Absolute #) 0.75 x10^3/uL (0.0-1.3); Neutrophil % 51.3 % (36.0-66.0); Platelet Count 84 x10^3/uL (150-450); Red Cell Distribution Width 14.6 % (11.5-14.0)
[2022-07-09 06:26] LABS: ALBUMIN 2.8 g/dL (3.5-5.0); ALKALINE PHOSPHATASE 92 U/L (38-126); ANION GAP 7.5 MEQ/L (5-15); BLOOD UREA NITROGEN 19 mg/dL (7-17); CHLORIDE 103 mmol/L (98-107); Calcium 8.1 mg/dL (8.4-10.2); Carbon Dioxide 33 mmol/L (22-30); EST GLOMERULAR FILTRATION RATE > 60.0 ML/MIN; Glucose 117 mg/dL (74-106); Potassium 3.3 mmol/L (3.5-5.1); SGOT/AST 33 U/L (14-36); SGPT/ALT 20 U/L (0-35); SODIUM 141 mmol/L (137-145); Total Protein 6.1 g/dL (6.3-8.2)
[2022-07-09] MEDS: NEURONTIN PO SCH ×2 (08:17→21:34)
[2022-07-09] MEDS: Protonix 40MG Tablet PO SCH ×2 (08:57→21:34)
[2022-07-09] MEDS: Klor Con PO SCH ×2 (08:57→21:33)
[2022-07-09] MEDS: Mirapex 0.5 MG Tablet PO SCH ×2 (08:57→21:33)
[2022-07-09] MEDS: ZOCOR 20MG PO SCH (08:57)
[2022-07-09] MEDS: Pepcid 20 MG VIAL IV SCH (08:58)
[2022-07-09] MEDS: Zestril 20 MG PO SCH ×2 (08:58→21:34)
[2022-07-09] MEDS: ENOXAPARIN SODIUM SQ SCH (08:58)
[2022-07-09] MEDS: PERCOCET TABLET 5/325MG PO SCH (08:59)
[2022-07-09] MEDS: Lasix 40 MG PO SCH (09:00)
[2022-07-09] MEDS: ROCEPHIN 1 Gm-D5w 50 ml Bag** 1 G/50 ML IVPB IV SCH (09:01)
[2022-07-09] MEDS: Lantus Insulin SQ SCH ×2 (09:45→22:00)
[2022-07-09] MEDS: Sodium Chloride 0.9% 1000 ML 1,000 ML IV SCH ×3 (10:54→10:56)
--- NOTE | 2022-07-09 13:03 | PCM.NOTE ---
Date and Time: 07/09/22 1302 Subjective Assessment: still drowsy, - Review of Systems Constitutional: Lethargy, No Fever, No Chills Eyes: No Symptoms Ears, Nose, & Throat: No Symptoms Respiratory: No Cough, No Short Of Breath Cardiac: No Chest Pain, No Edema, No Syncope Abdominal/Gastrointestinal: No Abdominal Pain, No Nausea, No Vomiting, No Diarrhea Genitourinary Symptoms: No Dysuria Musculoskeletal: No Back Pain, No Neck Pain Skin: No Rash Neurological: No Dizziness, No Focal Weakness, No Sensory Changes Psychological: No Symptoms Endocrine: No Symptoms Hematologic/Lymphatic: No Symptoms Immunological/Allergic: No Symptoms Objective Exam General Appearance: no apparent distress, alert Neurologic Exam: alert, oriented x 3, cooperative, normal mood/affect, nml cerebellar function, sensation nml, No motor deficits Skin Exam: normal color, warm, dry Wound Assessment: Skin/Wound Assessment Wound/Incision Assessment Start: 07/04/22 17:48 Text: Status: Active Freq: Q6H Protocol: Document 07/09/22 08:00 [facility] (Rec: 07/09/22 08:44 [facility] [id number]) Co-Sign 07/09/22 08:00 BELÉN Wound/Incision Assessment Right Lower Anterior Other Wound Assessment Shift Assessment Wound Type CELLULITIS Wound Stage Non Pressure Wound Dressing Status Dry & Intact Primary Dressing UNABOOTS Wound Photo Photo Taken No Eye Exam: PERRL, EOMI, eyes nml inspection Ears, Nose, Throat Exam: normal ENT inspection, pharynx normal, moist mucous membranes Neck Exam: normal inspection, non-tender, supple, full range of motion Respiratory Exam: normal breath sounds, lungs clear, No respiratory distress Cardiovascular Exam: regular rate/rhythm, normal heart sounds Gastrointestinal/Abdomen Exam: soft, No tenderness, No mass Extremity Exam: normal inspection, normal range of motion Back Exam: normal inspection, normal range of motion, No CVA tenderness, No vertebral tenderness Pelvic Exam: deferred Rectal Exam: deferred OBJECTIVE DATA Vital Signs: Vital Signs - 24 hr Temp Pulse Resp BP Pulse Ox 07/09/22 11:28 97.7 F 67 18 119/58 97 07/09/22 07:28 97.7 F 66 18 100/48 98 07/09/22 05:35 67 16 98 07/09/22 04:00 98.3 F 75 17 109/55 96 07/09/22 00:07 98.1 F 77 20 117/61 95 07/08/22 21:00 98.3 F 81 18 146/63 92 L 07/08/22 18:08 80 16 92 L 07/08/22 16:49 98.1 F 83 16 160/71 94 L Pain Assessment - Last Documented Pain Intensity 8 Pain Scale Used 0-10 Pain Scale Intake and Output: Intake & Output 07/07/22 07/08/22 07/09/22 07/10/22 11:59 11:59 11:59 11:59 Intake Total 2888 1335 620 Output Total 1100 250 Balance 2888 235 370 Weight 127.2 kg 128.1 kg Lab Results: Lab Results-Last 24 Hours 07/08/22 07/08/22 07/08/22 Range/Units 14:28 14:50 14:55 WBC 4.6 (4.0-10.5) x10^3/uL RBC 4.19 (4.1-5.4) x10^6/uL Hgb 11.9 L (12.0-16.0) g/dL Hct 37.9 (35-47) % MCV 90.5 (78-100) fL MCH 28.4 (26-32) pg MCHC 31.4 L (32-36) g/dL RDW 14.6 H (11.5-14.0) % Plt Count 86 L (150-450) x10^3/uL MPV 11.7 H (7.5-11.0) fL Gran % 59.0 (36.0-66.0) % Immature Gran % (Auto) 0.2 (0.00-0.4) % Nucleat RBC Rel Count 0.0 (0.00-0.1) % Eos # (Auto) 0.16 (0-0.5) x10^3/uL Immature Gran # (Auto) 0.01 (0.00-0.03) x10^3u/L Absolute Lymphs (auto) 1.11 (1.0-4.6) x10^3/uL Absolute Monos (auto) 0.57 (0.0-1.3) x10^3/uL Absolute Nucleated RBC 0.00 (0.00-0.01) x10^3u/L Lymphocytes % 24.2 (24.0-44.0) % Monocytes % 12.4 H (0.0-12.0) % Eosinophils % 3.5 (0.00-5.0) % Basophils % 0.7 (0.0-0.4) % Absolute Granulocytes 2.70 (1.4-6.9) x10^3/uL Basophils # 0.03 (0-0.4) x10^3/uL Sodium 138 (137-145) mmol/L Potassium 3.8 (3.5-5.1) mmol/L Chloride 103 (98-107) mmol/L Carbon Dioxide 34 H (22-30) mmol/L Anion Gap 5.0 (5-15) MEQ/L BUN 18 H (7-17) mg/dL Creatinine 0.79 (0.52-1.04) mg/dL Estimated GFR > 60.0 ML/MIN Glucose 156 H (74-106) mg/dL POC Glucometer 143 H (74 to 106) mg/dL Calcium 8.4 (8.4-10.2) mg/dL Total Bilirubin 0.60 (0.2-1.3) mg/dL AST 37 H (14-36) U/L ALT 21 (0-35) U/L Alkaline Phosphatase 98 (38-126) U/L Serum Total Protein 6.4 (6.3-8.2) g/dL Albumin 3.0 L (3.5-5.0) g/dL Vancomycin Trough (10-20) ug/mL 07/08/22 07/08/22 07/08/22 Range/Units 16:33 20:27 21:25 WBC (4.0-10.5) x10^3/uL RBC (4.1-5.4) x10^6/uL Hgb (12.0-16.0) g/dL Hct (35-47) % MCV (78-100) fL MCH (26-32) pg MCHC (32-36) g/dL RDW (11.5-14.0) % Plt Count (150-450) x10^3/uL MPV (7.5-11.0) fL Gran % (36.0-66.0) % Immature Gran % (Auto) (0.00-0.4) % Nucleat RBC Rel Count (0.00-0.1) % Eos # (Auto) (0-0.5) x10^3/uL Immature Gran # (Auto) (0.00-0.03) x10^3u/L Absolute Lymphs (auto) (1.0-4.6) x10^3/uL Absolute Monos (auto) (0.0-1.3) x10^3/uL Absolute Nucleated RBC (0.00-0.01) x10^3u/L Lymphocytes % (24.0-44.0) % Monocytes % (0.0-12.0) % Eosinophils % (0.00-5.0) % Basophils % (0.0-0.4) % Absolute Granulocytes (1.4-6.9) x10^3/uL Basophils # (0-0.4) x10^3/uL Sodium (137-145) mmol/L Potassium (3.5-5.1) mmol/L Chloride (98-107) mmol/L Carbon Dioxide (22-30) mmol/L Anion Gap (5-15) MEQ/L BUN (7-17) mg/dL Creatinine (0.52-1.04) mg/dL Estimated GFR ML/MIN Glucose (74-106) mg/dL POC Glucometer 121 H 90 (74 to 106) mg/dL Calcium (8.4-10.2) mg/dL Total Bilirubin (0.2-1.3) mg/dL AST (14-36) U/L ALT (0-35) U/L Alkaline Phosphatase (38-126) U/L Serum Total Protein (6.3-8.2) g/dL Albumin (3.5-5.0) g/dL Vancomycin Trough 12.30 (10-20) ug/mL 07/09/22 07/09/22 07/09/22 Range/Units 03:06 05:12 05:12 WBC 5.0 (4.0-10.5) x10^3/uL RBC 3.90 L (4.1-5.4) x10^6/uL Hgb 11.1 L (12.0-16.0) g/dL Hct 35.2 (35-47) % MCV 90.3 (78-100) fL MCH 28.5 (26-32) pg MCHC 31.5 L (32-36) g/dL RDW 14.6 H (11.5-14.0) % Plt Count 84 L (150-450) x10^3/uL MPV 11.6 H (7.5-11.0) fL Gran % 51.3 (36.0-66.0) % Immature Gran % (Auto) 0.2 (0.00-0.4) % Nucleat RBC Rel Count 0.0 (0.00-0.1) % Eos # (Auto) 0.24 (0-0.5) x10^3/uL Immature Gran # (Auto) 0.01 (0.00-0.03) x10^3u/L Absolute Lymphs (auto) 1.40 (1.0-4.6) x10^3/uL Absolute Monos (auto) 0.75 (0.0-1.3) x10^3/uL Absolute Nucleated RBC 0.00 (0.00-0.01) x10^3u/L Lymphocytes % 28.1 (24.0-44.0) % Monocytes % 15.0 H (0.0-12.0) % Eosinophils % 4.8 (0.00-5.0) % Basophils % 0.6 (0.0-0.4) % Absolute Granulocytes 2.56 (1.4-6.9) x10^3/uL Basophils # 0.03 (0-0.4) x10^3/uL Sodium 141 (137-145) mmol/L Potassium 3.3 L (3.5-5.1) mmol/L Chloride 103 (98-107) mmol/L Carbon Dioxide 33 H (22-30) mmol/L Anion Gap 7.5 (5-15) MEQ/L BUN 19 H (7-17) mg/dL Creatinine 0.80 (0.52-1.04) mg/dL Estimated GFR > 60.0 ML/MIN Glucose 117 H (74-106) mg/dL POC Glucometer 84 (74 to 106) mg/dL Calcium 8.1 L (8.4-10.2) mg/dL Total Bilirubin 0.60 (0.2-1.3) mg/dL AST 33 (14-36) U/L ALT 20 (0-35) U/L Alkaline Phosphatase 92 (38-126) U/L Serum Total Protein 6.1 L (6.3-8.2) g/dL Albumin 2.8 L (3.5-5.0) g/dL Vancomycin Trough (10-20) ug/mL 07/09/22 07/09/22 Range/Units 07:01 11:20 WBC (4.0-10.5) x10^3/uL RBC (4.1-5.4) x10^6/uL Hgb (12.0-16.0) g/dL Hct (35-47) % MCV (78-100) fL MCH (26-32) pg MCHC (32-36) g/dL RDW (11.5-14.0) % Plt Count (150-450) x10^3/uL MPV (7.5-11.0) fL Gran % (36.0-66.0) % Immature Gran % (Auto) (0.00-0.4) % Nucleat RBC Rel Count (0.00-0.1) % Eos # (Auto) (0-0.5) x10^3/uL Immature Gran # (Auto) (0.00-0.03) x10^3u/L Absolute Lymphs (auto) (1.0-4.6) x10^3/uL Absolute Monos (auto) (0.0-1.3) x10^3/uL Absolute Nucleated RBC (0.00-0.01) x10^3u/L Lymphocytes % (24.0-44.0) % Monocytes % (0.0-12.0) % Eosinophils % (0.00-5.0) % Basophils % (0.0-0.4) % Absolute Granulocytes (1.4-6.9) x10^3/uL Basophils # (0-0.4) x10^3/uL Sodium (137-145) mmol/L Potassium (3.5-5.1) mmol/L Chloride (98-107) mmol/L Carbon Dioxide (22-30) mmol/L Anion Gap (5-15) MEQ/L BUN (7-17) mg/dL Creatinine (0.52-1.04) mg/dL Estimated GFR ML/MIN Glucose (74-106) mg/dL POC Glucometer 100 122 H (74 to 106) mg/dL Calcium (8.4-10.2) mg/dL Total Bilirubin (0.2-1.3) mg/dL AST (14-36) U/L ALT (0-35) U/L Alkaline Phosphatase (38-126) U/L Serum Total Protein (6.3-8.2) g/dL Albumin (3.5-5.0) g/dL Vancomycin Trough (10-20) ug/mL Radiology Exams: Radiology Procedures Category Date Time Status ANKLE (3 VIEWS) Stat Exams 07/07/22 16:08 Completed ANKLE (3 VIEWS) Stat Exams 07/07/22 16:09 Completed CHEST 1 VIEW (PORTABLE) Urgent Exams 07/08/22 09:06 Completed HEAD WITHOUT CONTRAST [CT] Urgent Exams 07/08/22 14:39 Completed Multi-Disciplinary Progress Notes: Multi-Disciplinary Progress Notes 07/08/22 23:16 Respiratory Note by Aditi Pollock Placed patient on 3L NC due to SpO2 86% on room air. Initialized on 07/08/22 23:16 - END OF NOTE 07/08/22 15:12 Case Management Note by Ayaak Mclean PATIENT STILL AGREEABLE TO REHAB. SHE REPORTS SHE NEEDS TO STAY IN TOWN FOR REHAB IF AT ALL POSSIBLE. REFERRAL PENDING AT [facility]. PATIENT REPORTS HER SECOND CHOICE WOULD BE [facility]. Initialized on 07/08/22 15:12 - END OF NOTE Assessment/Plan (1) Cellulitis, leg Current Visit: Yes Status: Acute Qualifiers: Laterality: right Qualified Code(s): L03.115 - Cellulitis of right lower limb Assessment & Plan: Chief Complaint Diagnosis CELLULITIS, UNCONTROLLED DM Allergies Allergy/AdvReac Type Severity Reaction Status Date / Time adhesive tape AdvReac Intermediate Verified 07/04/22 17:05 Vital Signs (Last 24 hours) Temp Pulse Resp BP Pulse Ox 07/09/22 11:28 97.7 F 67 18 119/58 97 07/09/22 07:28 97.7 F 66 18 100/48 98 07/09/22 05:35 67 16 98 07/09/22 04:00 98.3 F 75 17 109/55 96 07/09/22 00:07 98.1 F 77 20 117/61 95 07/08/22 21:00 98.3 F 81 18 146/63 92 L 07/08/22 18:08 80 16 92 L 07/08/22 16:49 98.1 F 83 16 160/71 94 L Home Medications Medication Instructions Recorded Confirmed Last Taken Type Albuterol Sulfate [Albuterol 1 puff IH Q4HPRN PRN 07/04/22 07/04/22 Unknown History Sulfate Hfa] Gabapentin Enacarbil [Horizant] 600 mg PO 07/04/22 07/04/22 07/04/22 History Oxycodone HCl/Acetaminophen 1 each PO TID 07/04/22 07/04/22 07/04/22 History [Percocet 5-325 mg Tablet] Pramipexole Di-HCl 0.5 mg 0.5 mg PO BID 07/04/22 07/04/22 07/04/22 History [Mirapex 0.5 MG Tablet] Current Medications Generic Name Dose Route Start Last Admin Trade Name Sengq PRN Reason Stop Dose Admin Acetaminophen 650 mg 07/04/22 16:15 07/04/22 20:15 Acetaminophen 325 Mg Tablet PO 08/03/22 16:14 650 mg Q4H PRN PRN Administration PAIN AND/OR FEVER Albuterol Sulfate 1 puff 07/05/22 14:01 Albuterol Common Canister Inhaler IH 08/04/22 14:00 Q4HPRN PRN SHORTNESS OF BREATH/WHEEZING Enoxaparin Sodium 40 mg 07/04/22 17:00 07/09/22 08:58 Enoxaparin Sodium 40 Mg/0.4 Ml Syringe SQ 08/03/22 16:59 40 mg DAILY LUCÍA Administration Famotidine 20 mg 07/04/22 22:00 07/09/22 08:58 Famotidine 20 Mg/1 Vial IV 08/03/22 21:59 20 mg Q12HT LUCÍA Administration Furosemide 40 mg 07/05/22 10:00 07/09/22 09:00 Furosemide 40 Mg Tablet PO 08/04/22 09:59 40 mg DAILY LUCÍA Administration Gabapentin 600 mg 07/05/22 20:00 07/09/22 08:17 Gabapentin 300 Mg Capsule PO 08/03/22 21:59 600 mg LUCÍA Administration Ceftriaxone Sodium/Dextrose 1 g in 50 mls @ 100 mls/hr 07/05/22 10:00 07/09/22 09:01 Rocephin 1 Gm-D5w 50 Ml Bag IV 07/11/22 09:59 100 mls/hr Q24H10 LUCÍA Administration Vancomycin HCl 1.25 gm in 250 mls @ 166.667 mls/hr 07/08/22 22:00 07/08/22 22:03 Vancomycin 1.25 Gm/250 Ml Bag IV 07/11/22 21:59 166.667 mls/hr QPM LUCÍA Administration Insulin Human Regular 0 unit 07/04/22 16:15 07/07/22 11:57 Insulin Regular, Human 1 Unit SQ 08/03/22 16:14 3 unit UD PRN Administration HYPERGLYCEMIA Lisinopril 20 mg 07/05/22 22:00 07/09/22 08:58 Lisinopril 20 Mg Tablet PO 08/04/22 09:59 20 mg BID LUCÍA Administration Ondansetron HCl 4 mg 07/04/22 16:15 07/07/22 21:42 Ondansetron Hcl 4 Mg/2 Ml Vial IV 08/03/22 16:14 4 mg Q6H PRN PRN Administration NAUSEA/VOMITING Pantoprazole Sodium 40 mg 07/05/22 22:00 07/09/22 08:57 Protonix (Pantoprazole) 40 Mg Tablet PO 08/04/22 21:59 40 mg BID LUCÍA Administration Pramipexole Dihydrochloride 0.5 mg 07/05/22 22:00 07/09/22 08:57 Pramipexole Di-Hcl 0.5 Mg Tab PO 08/04/22 21:59 0.5 mg BID LUCÍA Administration Simvastatin 20 mg 07/05/22 14:00 07/09/22 08:57 Simvastatin 20 Mg Tablet PO 08/04/22 13:59 20 mg DAILY LUCÍA Administration Discontinued Medications Generic Name Dose Route Start Last Admin Trade Name Freq PRN Reason Stop Dose Admin Device 1 07/08/22 09:30 07/08/22 12:22 Therapuetic Drug Level Monitor Each IJ 07/08/22 09:31 1 1XONLY ONE Administration Device 1 07/08/22 21:30 07/09/22 07:31 Therapuetic Drug Level Monitor Each IJ 07/08/22 21:31 1 1XONLY ONE Administration Dextrose Confirm 07/08/22 12:55 Dextrose 50%-Water 50 Ml Abboject Administered 07/08/22 12:56 Dose 50 ml IV .STK-MED ONE Dextrose 25 ml 07/08/22 12:59 07/08/22 13:00 Dextrose 50%-Water 50 Ml Abboject IV 07/08/22 13:00 25 ml STAT ONE Administration Gabapentin 600 mg 07/04/22 22:00 07/05/22 09:43 Gabapentin 300 Mg Capsule PO 08/03/22 21:59 600 mg TID LUCÍA Administration Hydromorphone HCl 1 mg 07/04/22 13:21 07/04/22 13:36 Hydromorphone 1 Mg/1ml Inj 1 Mg/Ml Syringe IV 07/04/22 13:22 1 mg STAT ONE Administration Hydromorphone HCl Confirm 07/04/22 13:32 Hydromorphone 1 Mg/1ml Inj 1 Mg/Ml Syringe Administered 07/04/22 13:33 Dose 1 mg .ROUTE .STK-MED ONE Hydromorphone HCl 1 mg 07/04/22 16:00 07/04/22 16:26 Hydromorphone 1 Mg/1ml Inj 1 Mg/Ml Syringe IV 07/04/22 16:01 Not Given STAT ONE Hydromorphone HCl Confirm 07/04/22 16:15 Hydromorphone 1 Mg/1ml Inj 1 Mg/Ml Syringe Administered 07/04/22 16:16 Dose 1 mg .ROUTE .STK-MED ONE Hydromorphone HCl 1 mg 07/04/22 16:15 07/07/22 12:57 Hydromorphone 1 Mg/1ml Inj 1 Mg/Ml Syringe IV 07/09/22 16:14 1 mg Q4H PRN PRN Administration PAIN Hydromorphone HCl 1 mg 07/07/22 13:40 07/09/22 03:00 Hydromorphone 1 Mg/1ml Inj 1 Mg/Ml Syringe IV 07/12/22 13:39 1 mg Q3H PRN PRN Administration PAIN Sodium Chloride 1,000 mls @ 100 mls/hr 07/04/22 11:45 07/09/22 10:56 Sodium Chloride 0.9% 1000 Ml IV 08/03/22 11:44 Not Given .Q10H LUCÍA Ceftriaxone Sodium/Dextrose 1 g in 50 mls @ 100 mls/hr 07/04/22 11:47 07/04/22 12:42 Rocephin 1 Gm-D5w 50 Ml Bag IV 07/04/22 12:16 Infused STAT STA Infusion Ceftriaxone Sodium/Dextrose Confirm 07/04/22 11:55 Rocephin 1 Gm-D5w 50 Ml Bag Administered 07/04/22 11:56 Dose 1 g in 50 mls @ ud IV .STK-MED ONE Vancomycin HCl 1.25 gm in 250 mls @ 166.667 mls/hr 07/06/22 10:00 07/08/22 12:24 Vancomycin 1.25 Gm/250 Ml Bag IV 07/09/22 09:59 Not Given Q12HT [facility] Insulin Glargine 80 unit 07/04/22 22:00 07/04/22 22:29 Insulin Glargine 1 Unit SQ 08/03/22 21:59 80 unit HS [facility] Administration Insulin Glargine 80 unit 07/05/22 22:00 07/09/22 09:45 Insulin Glargine 1 Unit SQ 08/03/22 21:59 Not Given BID [facility] Insulin Human Regular 10 unit 07/04/22 13:20 07/04/22 13:37 Insulin Regular, Human 1 Unit IV 07/04/22 13:21 10 unit STAT ONE Administration Insulin Human Regular Confirm 07/04/22 13:32 Insulin Regular, Human 1 Unit Administered 07/04/22 13:33 Dose 10 unit .ROUTE .STK-MED ONE Insulin Human Regular 10 unit 07/04/22 14:23 07/04/22 14:26 Insulin Regular, Human 1 Unit IV 07/04/22 14:24 Not Given STAT ONE Insulin Human Regular 10 unit 07/04/22 14:21 07/04/22 14:30 Insulin Regular, Human 1 Unit IV 07/04/22 14:22 10 unit STAT ONE Administration Insulin Human Regular Confirm 07/04/22 14:28 Insulin Regular, Human 1 Unit Administered 07/04/22 14:29 Dose 10 unit .ROUTE .STK-MED ONE Ketorolac Tromethamine 30 mg 07/04/22 11:45 07/04/22 11:49 Ketorolac Tromethamine 30 Mg/Ml Inj IV 07/04/22 11:46 30 mg STAT ONE Administration Ketorolac Tromethamine Confirm 07/04/22 11:48 Ketorolac Tromethamine 30 Mg/Ml Inj Administered 07/04/22 11:49 Dose 30 mg .ROUTE .STK-MED ONE Lisinopril 40 mg 07/05/22 10:00 07/05/22 09:41 Lisinopril 20 Mg Tablet PO 08/04/22 09:59 40 mg DAILY LUCÍA Administration Non-Formulary Medication 1 each 07/06/22 08:38 07/06/22 10:04 Pharmacy Dose Request: Vancomycin 1 Each IV 07/06/22 08:39 1 each STAT STA Administration Oxycodone/Acetaminophen 1 tab 07/05/22 15:00 07/09/22 08:59 Oxycodone Hcl/Apap 5 Mg/325 Mg Tablet PO 07/10/22 14:59 1 tab TID LUCÍA Administration Pantoprazole Sodium 40 mg 07/05/22 10:00 07/05/22 09:34 Pantoprazole 40 Mg Vial IV 08/04/22 09:59 40 mg Q24H10 LUCÍA Administration Potassium Chloride 20 meq 07/05/22 10:00 07/05/22 09:39 Potassium Chloride Tab 10 Meq Tab PO 08/04/22 09:59 20 meq DAILY LUCÍA Administration Potassium Chloride 10 meq 07/06/22 10:00 07/09/22 08:57 Potassium Chloride Tab 10 Meq Tab PO 08/04/22 09:59 10 meq DAILY LUCÍA Administration Intake & Output (Last 24 hours) 07/07/22 07/08/22 07/09/22 07/10/22 11:59 11:59 11:59 11:59 Intake Total 2888 1335 620 Output Total 1100 250 Balance 2888 235 370 Weight 127.2 kg 128.1 kg Laboratory Results (Last 24 hours) 07/09/22 07/09/22 07/09/22 11:20 07:01 05:12 WBC RBC Hgb Hct MCV MCH MCHC RDW Plt Count MPV Gran % Immature Gran % (Auto) Nucleat RBC Rel Count Eos # (Auto) Immature Gran # (Auto) Absolute Lymphs (auto) Absolute Monos (auto) Absolute Nucleated RBC Lymphocytes % Monocytes % Eosinophils % Basophils % Absolute Granulocytes Basophils # Sodium 141 Potassium 3.3 L Chloride 103 Carbon Dioxide 33 H Anion Gap 7.5 BUN 19 H Creatinine 0.80 Estimated GFR > 60.0 Glucose 117 H POC Glucometer 122 H 100 Calcium 8.1 L Total Bilirubin 0.60 AST 33 ALT 20 Alkaline Phosphatase 92 Serum Total Protein 6.1 L Albumin 2.8 L Vancomycin Trough 07/09/22 07/09/22 07/08/22 05:12 03:06 21:25 WBC 5.0 RBC 3.90 L Hgb 11.1 L Hct 35.2 MCV 90.3 MCH 28.5 MCHC 31.5 L RDW 14.6 H Plt Count 84 L MPV 11.6 H Gran % 51.3 Immature Gran % (Auto) 0.2 Nucleat RBC Rel Count 0.0 Eos # (Auto) 0.24 Immature Gran # (Auto) 0.01 Absolute Lymphs (auto) 1.40 Absolute Monos (auto) 0.75 Absolute Nucleated RBC 0.00 Lymphocytes % 28.1 Monocytes % 15.0 H Eosinophils % 4.8 Basophils % 0.6 Absolute Granulocytes 2.56 Basophils # 0.03 Sodium Potassium Chloride Carbon Dioxide Anion Gap BUN Creatinine Estimated GFR Glucose POC Glucometer 84 Calcium Total Bilirubin AST ALT Alkaline Phosphatase Serum Total Protein Albumin Vancomycin Trough 12.30 07/08/22 07/08/22 07/08/22 20:27 16:33 14:55 WBC RBC Hgb Hct MCV MCH MCHC RDW Plt Count MPV Gran % Immature Gran % (Auto) Nucleat RBC Rel Count Eos # (Auto) Immature Gran # (Auto) Absolute Lymphs (auto) Absolute Monos (auto) Absolute Nucleated RBC Lymphocytes % Monocytes % Eosinophils % Basophils % Absolute Granulocytes Basophils # Sodium 138 Potassium 3.8 Chloride 103 Carbon Dioxide 34 H Anion Gap 5.0 BUN 18 H Creatinine 0.79 Estimated GFR > 60.0 Glucose 156 H POC Glucometer 90 121 H Calcium 8.4 Total Bilirubin 0.60 AST 37 H ALT 21 Alkaline Phosphatase 98 Serum Total Protein 6.4 Albumin 3.0 L Vancomycin Trough 07/08/22 07/08/22 14:50 14:28 WBC 4.6 RBC 4.19 Hgb 11.9 L Hct 37.9 MCV 90.5 MCH 28.4 MCHC 31.4 L RDW 14.6 H Plt Count 86 L MPV 11.7 H Gran % 59.0 Immature Gran % (Auto) 0.2 Nucleat RBC Rel Count 0.0 Eos # (Auto) 0.16 Immature Gran # (Auto) 0.01 Absolute Lymphs (auto) 1.11 Absolute Monos (auto) 0.57 Absolute Nucleated RBC 0.00 Lymphocytes % 24.2 Monocytes % 12.4 H Eosinophils % 3.5 Basophils % 0.7 Absolute Granulocytes 2.70 Basophils # 0.03 Sodium Potassium Chloride Carbon Dioxide Anion Gap BUN Creatinine Estimated GFR Glucose POC Glucometer 143 H Calcium Total Bilirubin AST ALT Alkaline Phosphatase Serum Total Protein Albumin Vancomycin Trough Orders (Last 24 hours) Category Date Time Status HEAD WITHOUT CONTRAST [CT] Urgent Exams 07/08/22 14:39 Completed CBC W DIFF AM.LAB Lab 07/09/22 05:12 Completed CBC W DIFF AM.LAB Lab 07/10/22 04:00 Ordered CBC W DIFF AM.LAB Lab 07/11/22 04:00 Ordered CBC W DIFF Routine Lab 07/08/22 14:50 Completed CMP AM.LAB Lab 07/09/22 05:12 Completed CMP AM.LAB Lab 07/10/22 04:00 Ordered CMP AM.LAB Lab 07/11/22 04:00 Ordered CMP Urgent Lab 07/08/22 14:55 Completed POCT GLUCOSE Stat Lab 07/08/22 14:28 Completed POCT GLUCOSE Stat Lab 07/08/22 16:33 Completed POCT GLUCOSE Stat Lab 07/08/22 20:27 Completed POCT GLUCOSE Stat Lab 07/09/22 03:06 Completed POCT GLUCOSE Stat Lab 07/09/22 07:01 Completed POCT GLUCOSE Stat Lab 07/09/22 11:20 Completed Vancomycin, Trough Urgent Lab 07/08/22 21:25 Completed Dextrose 50%-Water Syringe [D50W 50 ml Abboject] Med 07/08/22 12:59 Discontinued 25 ml IV STAT ONE Dextrose 50%-Water Syringe [D50W 50 ml Abboject] Med 07/08/22 12:55 Discontinued 50 ml IV .STK-MED ONE Insulin Glargine [Lantus Insulin] Med 07/09/22 12:56 Unverified 70 unit SQ BID Oxycodone / APAP 10/325 mg [Oxycodone-Acetaminophen Med 07/09/22 12:58 Unverified 10-325] 1 tab PO Q6H PRN PRN Potassium Chloride Tab* [Klor Con] Med 07/09/22 22:00 Unverified 10 meq PO BID Therapuetic Drug Level Monitor [Trough Drug Levels] Med 07/08/22 21:30 Discontinued 1 IJ 1XONLY ONE Vancomycin/Water For Inj (Peg) [Vancomycin 1.25 gm/250 Med 07/08/22 22:00 Active ml Bag] 1.25 gm in 250 ml IV QPM Oxygen Nasal Cannula 3 lpm RT 07/08/22 23:13 Active Patient Care Notes (Last 24 hours) 07/09/22 00:49 Nursing Note by Berto Del Castillo 07/09/22 0010 Pt informed [employer] she is requesting her Dilaudid found pt drowsy arouse easily to verbal stimuli and back to sleep. O2 continue via NC at 2LPM . Will hold Dilaudid at present continuos 02 sat monitoring. Initialized on 07/09/22 00:49 - END OF NOTE 07/08/22 23:16 Respiratory Note by Aditi Pollock Placed patient on 3L NC due to SpO2 86% on room air. Initialized on 07/08/22 23:16 - END OF NOTE 07/08/22 15:12 Case Management Note by Ayaka Mclean PATIENT STILL AGREEABLE TO REHAB. SHE REPORTS SHE NEEDS TO STAY IN TOWN FOR REHAB IF AT ALL POSSIBLE. REFERRAL PENDING AT [facility]. PATIENT REPORTS HER SECOND CHOICE WOULD BE [facility]. Initialized on 07/08/22 15:12 - END OF NOTE (2) Medial malleolar fracture Current Visit: Yes Status: Acute Qualifiers: Encounter type: subsequent encounter Fracture type: closed Fracture alignment: nondisplaced Laterality: right Fracture healing: with routine healing Qualified Code(s): S82.54XD - Nondisplaced fracture of medial malleolus of right tibia, subsequent encounter for closed fracture with routine healing Code(s): S82.53XA - DISP FX OF MEDIAL MALLEOLUS OF UNSP TIBIA, INIT FOR CLOS FX (3) Venous insufficiency (chronic) (peripheral) Current Visit: Yes Status: Acute (4) Uncontrolled diabetes mellitus Current Visit: Yes Status: Chronic Qualifiers: Diabetes mellitus type: type 2 Glycemic state: with hyperglycemia Qualifi ed Code(s): E11.65 - Type 2 diabetes mellitus with hyperglycemia Code(s): E11.65 - TYPE 2 DIABETES MELLITUS WITH HYPERGLYCEMIA
[2022-07-09] MEDS: OXYCODONE-ACETAMINOPHEN 10-325 PO PRN (16:51)
[2022-07-09] MEDS: Pepcid 20 MG PO SCH (21:34)
[2022-07-09] MEDS: VANCOMYCIN 1.25 GM/250 ML BAG 1.25 GM/250 ML PIGGYBACK IV SCH (21:34)
[2022-07-10] MEDS: Zofran 4 MG/2 ML VIAL IV PRN (02:13)
[2022-07-10] MEDS: OXYCODONE-ACETAMINOPHEN 10-325 PO PRN ×4 (02:13→22:50)
[2022-07-10 05:09] LABS: BASOPHIL % 0.8 % (0.0-0.4); Basophil (Absolute #) 0.04 x10^3/uL (0-0.4); Eosinophil % 3.5 % (0.00-5.0); Eosinophil (Absolute #) 0.18 x10^3/uL (0-0.5); Hemoglobin 11.3 g/dL (12.0-16.0); IMMATURE GRAN # 0.01 x10^3u/L (0.00-0.03); IMMATURE GRAN % 0.2 % (0.00-0.4); Lymphocyte (Absolute #) 1.22 x10^3/uL (1.0-4.6); Lymphocytes % 23.9 % (24.0-44.0); Mean Cell Volume 89.6 fL (78-100); Mean Corpuscular Hemoglobin 28.1 pg (26-32); Mean Corpuscular Hgb Concent. 31.4 g/dL (32-36); Mean Platelet Volume 11.5 fL (7.5-11.0); Monocyte (Absolute #) 0.75 x10^3/uL (0.0-1.3); Monocytes % 14.7 % (0.0-12.0); Neutrophil % 56.9 % (36.0-66.0); Platelet Count 103 x10^3/uL (150-450); Red Blood Count 4.02 x10^6/uL (4.1-5.4); Red Cell Distribution Width 14.6 % (11.5-14.0); White Blood Count 5.1 x10^3/uL (4.0-10.5)
[2022-07-10 05:27] LABS: ALBUMIN 2.9 g/dL (3.5-5.0); ALKALINE PHOSPHATASE 97 U/L (38-126); ANION GAP 7.5 MEQ/L (5-15); BLOOD UREA NITROGEN 22 mg/dL (7-17); CHLORIDE 103 mmol/L (98-107); Calcium 8.2 mg/dL (8.4-10.2); Carbon Dioxide 33 mmol/L (22-30); EST GLOMERULAR FILTRATION RATE > 60.0 ML/MIN; Glucose 105 mg/dL (74-106); Potassium 3.6 mmol/L (3.5-5.1); SGOT/AST 33 U/L (14-36); SGPT/ALT 19 U/L (0-35); SODIUM 140 mmol/L (137-145); Total Protein 6.3 g/dL (6.3-8.2)
[2022-07-10] MEDS ORDERED: Compazine 10 MG/2 ML IV ONE (06:18)
[2022-07-10] MEDS: ZOCOR 20MG PO SCH (09:47)
[2022-07-10] MEDS: Mirapex 0.5 MG Tablet PO SCH ×2 (09:47→21:03)
[2022-07-10] MEDS: Protonix 40MG Tablet PO SCH ×2 (09:47→21:03)
[2022-07-10] MEDS: Klor Con PO SCH ×2 (09:47→21:03)
[2022-07-10] MEDS: Pepcid 20 MG PO SCH ×2 (09:47→21:03)
[2022-07-10] MEDS: NEURONTIN PO SCH ×2 (09:47→21:02)
[2022-07-10] MEDS: Lasix 40 MG PO SCH (09:47)
[2022-07-10] MEDS: Zestril 20 MG PO SCH ×2 (09:47→21:03)
[2022-07-10] MEDS: ENOXAPARIN SODIUM SQ SCH (09:48)
[2022-07-10] MEDS: ROCEPHIN 1 Gm-D5w 50 ml Bag** 1 G/50 ML IVPB IV SCH (09:48)
[2022-07-10] MEDS: Lantus Insulin SQ SCH ×2 (09:56→22:25)
[2022-07-10] MEDS: NYSTOP 30 GM CREAM TOP SCH ×2 (16:39→22:50)
--- NOTE | 2022-07-10 18:13 | PCM.NOTE ---
Date and Time: 07/10/221811 Subjective Assessment: doing better - Review of Systems Constitutional: No Fever, No Chills Eyes: No Symptoms Ears, Nose, & Throat: No Symptoms Respiratory: No Cough, No Short Of Breath Cardiac: No Chest Pain, No Edema, No Syncope Abdominal/Gastrointestinal: No Abdominal Pain, No Nausea, No Vomiting, No Diarrhea Genitourinary Symptoms: No Dysuria Musculoskeletal: No Back Pain, No Neck Pain Skin: No Rash Neurological: No Dizziness, No Focal Weakness, No Sensory Changes Psychological: No Symptoms Endocrine: No Symptoms Hematologic/Lymphatic: No Symptoms Immunological/Allergic: No Symptoms Objective Exam General Appearance: no apparent distress, alert Neurologic Exam: alert, oriented x 3, cooperative, normal mood/affect, nml cerebellar function, sensation nml, No motor deficits Skin Exam: normal color, warm, dry Wound Assessment: Skin/Wound Assessment Wound/Incision Assessment Start: 07/04/22 17:48 Text: Status: Active Freq: Q6H Protocol: Document 07/10/22 14:00 (Rec: 07/10/22 14:35 [id number]) Wound/Incision Assessment Right Lower Anterior Other Wound Assessment Shift Assessment Wound Type CELLULITIS Wound Stage Non Pressure Wound Dressing Status Dry & Intact Primary Dressing UNABOOTS Comment not visualized at this time , wraps in place Eye Exam: PERRL, EOMI, eyes nml inspection Ears, Nose, Throat Exam: normal ENT inspection, pharynx normal, moist mucous membranes Neck Exam: normal inspection, non-tender, supple, full range of motion Respiratory Exam: normal breath sounds, lungs clear, No respiratory distress Cardiovascular Exam: regular rate/rhythm, normal heart sounds Gastrointestinal/Abdomen Exam: soft, No tenderness, No mass Extremity Exam: normal inspection, normal range of motion Back Exam: normal inspection, normal range of motion, No CVA tenderness, No vertebral tenderness Pelvic Exam: deferred Rectal Exam: deferred OBJECTIVE DATA Vital Signs: Vital Signs - 24 hr Temp Pulse Resp BP Pulse Ox 07/10/22 16:00 97.9 F 72 17 135/63 93 L 07/10/22 12:00 98.1 F 81 18 113/52 94 L 07/10/22 07:22 97.7 F 80 17 128/59 95 07/10/22 06:53 83 16 95 07/10/22 04:00 98.3 F 73 19 122/57 92 L 07/10/22 00:00 97.8 F 70 19 119/59 92 L 07/09/22 19:41 97.8 F 74 18 132/60 94 L Pain Assessment - Last Documented Pain Intensity 8 Pain Scale Used [facility] Intake and Output: Intake & Output 07/08/22 07/09/22 07/10/22 07/11/22 11:59 11:59 11:59 11:59 Intake Total 8644 522 8433 480 Output Total 1100 250 300 Balance 705 697 6045 180 Weight 128.1 kg 128.1 kg Lab Results: Lab Results-Last 24 Hours 07/09/22 07/10/22 07/10/22 Range/Units 20:34 04:40 04:40 WBC 5.1 (4.0-10.5) x10^3/uL RBC 4.02 L (4.1-5.4) x10^6/uL Hgb 11.3 L (12.0-16.0) g/dL Hct 36.0 (35-47) % MCV 89.6 (78-100) fL MCH 28.1 (26-32) pg MCHC 31.4 L (32-36) g/dL RDW 14.6 H (11.5-14.0) % Plt Count 103 L (150-450) x10^3/uL MPV 11.5 H (7.5-11.0) fL Gran % 56.9 (36.0-66.0) % Immature Gran % (Auto) 0.2 (0.00-0.4) % Nucleat RBC Rel Count 0.0 (0.00-0.1) % Eos # (Auto) 0.18 (0-0.5) x10^3/uL Immature Gran # (Auto) 0.01 (0.00-0.03) x10^3u/L Absolute Lymphs (auto) 1.22 (1.0-4.6) x10^3/uL Absolute Monos (auto) 0.75 (0.0-1.3) x10^3/uL Absolute Nucleated RBC 0.00 (0.00-0.01) x10^3u/L Lymphocytes % 23.9 L (24.0-44.0) % Monocytes % 14.7 H (0.0-12.0) % Eosinophils % 3.5 (0.00-5.0) % Basophils % 0.8 (0.0-0.4) % Absolute Granulocytes 2.90 (1.4-6.9) x10^3/uL Basophils # 0.04 (0-0.4) x10^3/uL Sodium 140 (137-145) mmol/L Potassium 3.6 (3.5-5.1) mmol/L Chloride 103 (98-107) mmol/L Carbon Dioxide 33 H (22-30) mmol/L Anion Gap 7.5 (5-15) MEQ/L BUN 22 H (7-17) mg/dL Creatinine 0.80 (0.52-1.04) mg/dL Estimated GFR > 60.0 ML/MIN Glucose 105 (74-106) mg/dL POC Glucometer 110 H (74 to 106) mg/dL Calcium 8.2 L (8.4-10.2) mg/dL Total Bilirubin 0.70 (0.2-1.3) mg/dL AST 33 (14-36) U/L ALT 19 (0-35) U/L Alkaline Phosphatase 97 (38-126) U/L Serum Total Protein 6.3 (6.3-8.2) g/dL Albumin 2.9 L (3.5-5.0) g/dL 07/10/22 07/10/22 07/10/22 Range/Units 07:06 12:16 16:14 WBC (4.0-10.5) x10^3/uL RBC (4.1-5.4) x10^6/uL Hgb (12.0-16.0) g/dL Hct (35-47) % MCV (78-100) fL MCH (26-32) pg MCHC (32-36) g/dL RDW (11.5-14.0) % Plt Count (150-450) x10^3/uL MPV (7.5-11.0) fL Gran % (36.0-66.0) % Immature Gran % (Auto) (0.00-0.4) % Nucleat RBC Rel Count (0.00-0.1) % Eos # (Auto) (0-0.5) x10^3/uL Immature Gran # (Auto) (0.00-0.03) x10^3u/L Absolute Lymphs (auto) (1.0-4.6) x10^3/uL Absolute Monos (auto) (0.0-1.3) x10^3/uL Absolute Nucleated RBC (0.00-0.01) x10^3u/L Lymphocytes % (24.0-44.0) % Monocytes % (0.0-12.0) % Eosinophils % (0.00-5.0) % Basophils % (0.0-0.4) % Absolute Granulocytes (1.4-6.9) x10^3/uL Basophils # (0-0.4) x10^3/uL Sodium (137-145) mmol/L Potassium (3.5-5.1) mmol/L Chloride (98-107) mmol/L Carbon Dioxide (22-30) mmol/L Anion Gap (5-15) MEQ/L BUN (7-17) mg/dL Creatinine (0.52-1.04) mg/dL Estimated GFR ML/MIN Glucose (74-106) mg/dL POC Glucometer 118 H 144 H 145 H (74 to 106) mg/dL Calcium (8.4-10.2) mg/dL Total Bilirubin (0.2-1.3) mg/dL AST (14-36) U/L ALT (0-35) U/L Alkaline Phosphatase (38-126) U/L Serum Total Protein (6.3-8.2) g/dL Albumin (3.5-5.0) g/dL Multi-Disciplinary Progress Notes: Multi-Disciplinary Progress Notes 07/10/22 16:46 Physical Therapy Note by Cem(L#[id number]),Angela PT. WAS SEEN BY PTawanda BID THIS DATE. PT. IN BOOT R FOOT. PT. REPORTS SHE FEELS MUCH LESS "SHAKY" TODAY. PT. ASKED TO TRY TO TRANSFER TO [facility] SHE NEEDED TO HAVE A B.M. PT. PERFORMED SUPINE TO SIT W/ CGA-MIN ASSIST. DONNED GAIT BELT AND GRIPPER SOCK FOR L FOOT. PT. PERFORMED SIT TO STAND W/ MIN-MOD ASSIST X 2. ABLE TO PIVOT TO CHAIR W/ MOD ASSIST X 2 W/ SW. PT. LIKELY WB ON R LE BUT L ANKLE IS SUPINATED AND EQUINUS TYPE DEFORMITY WELL. PT. POSITIONED IN CHAIR W/ CALL LIGHT IN REACH AMD LES ELEVATED W/ PILLOWS. PT. SAT UP FOR 3.5 HOURS IN CHAIR. PERFORMED AROM EX'S L LE ANKLE PUMPS, HEEL SLIDES. PT. TRANSFERRED BACK TO BED W/ MIN-MOD ASSIST X 2 W/ SW. CONT. P.T. 5X/WK TO ADDRESS WEAKNESS AND FUNCTIONAL DEFICITS. AWAITING INS PA FOR SNF STAY FOR REHAB. Initialized on 07/10/22 16:46 - END OF NOTE 07/10/22 08:35 Case Management Note by Ayaka Mclean HAS ACCEPTED PATIENT AND HAS STARTED PRECERT Initialized on 07/10/22 08:35 - END OF NOTE 07/09/22 22:18 Physical Therapy Note by Cem(L#[id number])Angela PT. WAS SEEN BY P.T. THIS A.M. ALERT BUT SLEEPY UPON P.T. ARRIVAL TO ROOM. PT. HAS SHORT CAM BOOT R ANKLE TO IMMOBILIZE HEALING FX. ELECTED TO TRANSFER PT. TO BEDSIDE CHAIR W/ CLAU LIFT TODAY D/T DECREASED WB STABILITY AND TOLERANCE. PT. ABLE TO ROLL BILATERALLY W/ USE OF HR AND CGA. TRANSFERRED TO CHAIR W/ CLAU LIFT AND ASSIST OF NSG STAFF. PT. TOLERATED SITTING IN CHAIR X 2 HOURS AND WAS TRANSFERRED BACK TO BED W/ CLAU WELL. AWAITNG INS PA FOR SNF STAY FOR REHAB. WILL CONT. P.T. 5X/WK UNTIL D/C. Initialized on 07/09/22 22:18 - END OF NOTE Assessment/Plan (1) Cellulitis, leg Current Visit: Yes Status: Acute Qualifiers: Laterality: right Qualified Code(s): L03.115 - Cellulitis of right lower limb Assessment & Plan: improving (2) Medial malleolar fracture Current Visit: Yes Status: Acute Qualifiers: Encounter type: subsequent encounter Fracture type: closed Fracture alignment: nondisplaced Laterality: right Fracture healing: with routine healing Qualified Code(s): S82.54XD - Nondisplaced fracture of medial malleolus of right tibia, subsequent encounter for closed fracture with routine healing Code(s): S82.53XA - DISP FX OF MEDIAL MALLEOLUS OF UNSP TIBIA, INIT FOR CLOS FX (3) Venous insufficiency (chronic) (peripheral) Current Visit: Yes Status: Acute (4) Uncontrolled diabetes mellitus Current Visit: Yes Status: Chronic Qualifiers: Diabetes mellitus type: type 2 Glycemic state: with hyperglycemia Qualified Code(s): E11.65 - Type 2 diabetes mellitus with hyperglycemia Code(s): E11.65 - TYPE 2 DIABETES MELLITUS WITH HYPERGLYCEMIA
[2022-07-10] MEDS: HUMULIN R SQ PRN (22:07)
[2022-07-10] MEDS: VANCOMYCIN 1.25 GM/250 ML BAG 1.25 GM/250 ML PIGGYBACK IV SCH (22:55)
[2022-07-11 05:23] LABS: Absolute Neutrophil Ct (ANC) 2.49 x10^3/uL (1.4-6.9); BASOPHIL % 0.6 % (0.0-0.4); Basophil (Absolute #) 0.03 x10^3/uL (0-0.4); Hematocrit 33.8 % (35-47); Hemoglobin 10.9 g/dL (12.0-16.0); IMMATURE GRAN # 0.02 x10^3u/L (0.00-0.03); IMMATURE GRAN % 0.4 % (0.00-0.4); Lymphocyte (Absolute #) 1.56 x10^3/uL (1.0-4.6); Lymphocytes % 31.3 % (24.0-44.0); Mean Cell Volume 89.7 fL (78-100); Mean Corpuscular Hemoglobin 28.9 pg (26-32); Mean Corpuscular Hgb Concent. 32.2 g/dL (32-36); Mean Platelet Volume 11.7 fL (7.5-11.0); Monocyte (Absolute #) 0.69 x10^3/uL (0.0-1.3); Monocytes % 13.8 % (0.0-12.0); Neutrophil % 49.9 % (36.0-66.0); Platelet Count 110 x10^3/uL (150-450); Red Blood Count 3.77 x10^6/uL (4.1-5.4); Red Cell Distribution Width 14.7 % (11.5-14.0)
[2022-07-11 05:39] LABS: ALBUMIN 2.8 g/dL (3.5-5.0); ALKALINE PHOSPHATASE 91 U/L (38-126); ANION GAP 5.7 MEQ/L (5-15); BLOOD UREA NITROGEN 23 mg/dL (7-17); CHLORIDE 102 mmol/L (98-107); Calcium 8.2 mg/dL (8.4-10.2); Carbon Dioxide 33 mmol/L (22-30); Creatinine 1 0.94 mg/dL (0.52-1.04); EST GLOMERULAR FILTRATION RATE > 60.0 ML/MIN; Glucose 162 mg/dL (74-106); Potassium 3.6 mmol/L (3.5-5.1); SGOT/AST 28 U/L (14-36); SGPT/ALT 18 U/L (0-35); SODIUM 138 mmol/L (137-145); Total Protein 6.2 g/dL (6.3-8.2)
[2022-07-11] MEDS: OXYCODONE-ACETAMINOPHEN 10-325 PO PRN ×2 (06:17→12:34)
[2022-07-11] MEDS: Lantus Insulin SQ SCH (08:54)
[2022-07-11] MEDS: Mirapex 0.5 MG Tablet PO SCH (08:55)
[2022-07-11] MEDS: ENOXAPARIN SODIUM SQ SCH (08:55)
[2022-07-11] MEDS: Protonix 40MG Tablet PO SCH (08:56)
[2022-07-11] MEDS: NEURONTIN PO SCH (08:56)
[2022-07-11] MEDS: Zestril 20 MG PO SCH (08:56)
[2022-07-11] MEDS: Pepcid 20 MG PO SCH (08:56)
[2022-07-11] MEDS: Klor Con PO SCH (08:56)
[2022-07-11] MEDS: Lasix 40 MG PO SCH (08:56)
[2022-07-11] MEDS: ZOCOR 20MG PO SCH (08:56)
[2022-07-11] MEDS: NYSTOP 30 GM CREAM TOP SCH ×3 (08:57→18:40)
[2022-07-11] MEDS ORDERED: Docusate Sodium 100 MG PO SCH (10:00)
[2022-07-11] MEDS: Zofran 4 MG/2 ML VIAL IV PRN (15:38)
[2022-07-11] MEDS ORDERED: PHARMACY DOSING REQUEST MC ONE (15:53)
[2022-07-11] MEDS: HUMULIN R SQ PRN (16:52)
[2022-07-11 16:53] VITALS: BP 132/69; PULSE 76; O2SAT 93
--- NOTE | 2022-07-11 20:05 | PCM.DS ---
Discharge Summary Date of Admission: 07/06/22 11:00 Admitting Physician: ROB HERNANDEZ Consults: Consults on Case 07/07/22 12:24 Consult Podiatry ROUTINE Primary Care Provider: ROB HERNANDEZ Allergies Allergies adhesive tape Adverse Reaction (Intermediate, Verified 07/04/22 17:05) Hospital Summary - Hospital Course Hospital Course: Chief Complaint Diagnosis CELLULITIS, UNCONTROLLED DM Allergies Allergy/AdvReac Type Severity Reaction Status Date / Time adhesive tape AdvReac Intermediate Verified 07/04/22 17:05 Vital Signs (Last 24 hours) Temp Pulse Resp BP Pulse Ox 07/11/22 16:00 97.4 F 76 17 132/69 93 L 07/11/22 11:32 97.0 F 70 17 104/51 94 L 07/11/22 06:56 97.7 F 78 17 113/59 94 L 07/11/22 06:37 77 16 97 07/11/22 04:14 97.5 F 70 16 116/56 90 L 07/10/22 23:55 98.1 F 80 19 145/67 95 Home Medications Medication Instructions Recorded Confirmed Last Taken Type Albuterol Sulfate [Albuterol 1 puff IH Q4HPRN PRN 07/04/22 07/04/22 Unknown History Sulfate Hfa] Gabapentin Enacarbil [Horizant] 600 mg PO [id number],199907/04/22 07/04/22 07/04/22 History Oxycodone HCl/Acetaminophen 1 each PO TID 07/04/22 07/04/22 07/04/22 History [Percocet 5-325 mg Tablet] Pramipexole Di-HCl 0.5 mg 0.5 mg PO BID 07/04/22 07/04/22 07/04/22 History [Mirapex 0.5 MG Tablet] Aspirin EC 325 mg [Ecotrin 325 325 mg PO DAILY #30 07/11/22 Unknown Rx MG] Cefdinir 300 mg PO BID #30 cap 07/11/22 Unknown Rx Docusate Sodium 100 mg 100 mg PO BID cap 07/11/22 Unknown Rx [Docusate Sodium 100 MG] Famotidine 20 mg [Pepcid 20 20 mg PO BID tablet 07/11/22 Unknown Rx MG] Nystatin Cream 30 gm [Nystop 30 0 gm TOP QID 07/11/22 Unknown Rx gm Cream] Current Medications Discontinued Medications Generic Name Dose Route Start Last Admin Trade Name Freq PRN Reason Stop Dose Admin Acetaminophen 650 mg 07/04/22 16:15 07/04/22 20:15 Acetaminophen 325 Mg Tablet PO 08/03/22 16:14 650 mg Q4H PRN PRN Administration PAIN AND/OR FEVER Albuterol Sulfate 1 puff 07/05/22 14:01 Albuterol Common Canister Inhaler IH 08/04/22 14:00 Q4HPRN PRN SHORTNESS OF BREATH/WHEEZING Device 1 07/08/22 09:30 07/08/22 12:22 Therapuetic Drug Level Monitor Each IJ 07/08/22 09:31 1 1XONLY ONE Administration Device 1 07/08/22 21:30 07/09/22 07:31 Therapuetic Drug Level Monitor Each IJ 07/08/22 21:31 1 1XONLY ONE Administration Device 1 07/11/22 21:30 Therapuetic Drug Level Monitor Each IJ 07/11/22 21:31 1XONLY ONE Dextrose Confirm 07/08/22 12:55 Dextrose 50%-Water 50 Ml Abboject Administered 07/08/22 12:56 Dose 50 ml IV .STK-MED ONE Dextrose 25 ml 07/08/22 12:59 07/08/22 13:00 Dextrose 50%-Water 50 Ml Abboject IV 07/08/22 13:00 25 ml STAT ONE Administration Docusate Sodium 100 mg 07/11/22 10:00 07/11/22 08:56 Docusate Sodium 100 Mg Capsule PO 08/10/22 09:59 100 mg BID LUCÍA Administration Enoxaparin Sodium 40 mg 07/04/22 17:00 07/11/22 08:55 Enoxaparin Sodium 40 Mg/0.4 Ml Syringe SQ 08/03/22 16:59 40 mg DAILY LUCÍA Administration Famotidine 20 mg 07/04/22 22:00 07/09/22 08:58 Famotidine 20 Mg/1 Vial IV 08/03/22 21:59 20 mg Q12HT LUCÍA Administration Famotidine 20 mg 07/09/22 22:00 07/11/22 08:56 Famotidine 20 Mg Tablet PO 08/08/22 21:59 20 mg BID LUCÍA Administration Furosemide 40 mg 07/05/22 10:00 07/11/22 08:56 Furosemide 40 Mg Tablet PO 08/04/22 09:59 40 mg DAILY LUCÍA Administration Gabapentin 600 mg 07/04/22 22:00 07/05/22 09:43 Gabapentin 300 Mg Capsule PO 08/03/22 21:59 600 mg TID LUCÍA Administration Gabapentin 600 mg 07/05/22 20:00 07/11/22 08:56 Gabapentin 300 Mg Capsule PO 08/03/22 21:59 600 mg 0800,2000 LUCÍA Administration Hydromorphone HCl 1 mg 07/04/22 13:21 07/04/22 13:36 Hydromorphone 1 Mg/1ml Inj 1 Mg/Ml Syringe IV 07/04/22 13:22 1 mg STAT ONE Administration Hydromorphone HCl Confirm 07/04/22 13:32 Hydromorphone 1 Mg/1ml Inj 1 Mg/Ml Syringe Administered 07/04/22 13:33 Dose 1 mg .ROUTE .STK-MED ONE Hydromorphone HCl 1 mg 07/04/22 16:00 07/04/22 16:26 Hydromorphone 1 Mg/1ml Inj 1 Mg/Ml Syringe IV 07/04/22 16:01 Not Given STAT ONE Hydromorphone HCl Confirm 07/04/22 16:15 Hydromorphone 1 Mg/1ml Inj 1 Mg/Ml Syringe Administered 07/04/22 16:16 Dose 1 mg .ROUTE .STK-MED ONE Hydromorphone HCl 1 mg 07/04/22 16:15 07/07/22 12:57 Hydromorphone 1 Mg/1ml Inj 1 Mg/Ml Syringe IV 07/09/22 16:14 1 mg Q4H PRN PRN Administration PAIN Hydromorphone HCl 1 mg 07/07/22 13:40 07/09/22 03:00 Hydromorphone 1 Mg/1ml Inj 1 Mg/Ml Syringe IV 07/12/22 13:39 1 mg Q3H PRN PRN Administration PAIN Sodium Chloride 1,000 mls @ 100 mls/hr 07/04/22 11:45 07/09/22 10:56 Sodium Chloride 0.9% 1000 Ml IV 08/03/22 11:44 Not Given .Q10H LUCÍA Ceftriaxone Sodium/Dextrose 1 g in 50 mls @ 100 mls/hr 07/04/22 11:47 07/04/22 12:42 Rocephin 1 Gm-D5w 50 Ml Bag IV 07/04/22 12:16 Infused STAT STA Infusion Ceftriaxone Sodium/Dextrose Confirm 07/04/22 11:55 Rocephin 1 Gm-D5w 50 Ml Bag Administered 07/04/22 11:56 Dose 1 g in 50 mls @ ud IV .STK-MED ONE Ceftriaxone Sodium/Dextrose 1 g in 50 mls @ 100 mls/hr 07/05/22 10:00 07/10/22 09:48 Rocephin 1 Gm-D5w 50 Ml Bag IV 07/11/22 09:59 100 mls/hr Q24H10 LUCÍA Administration Vancomycin HCl 1.25 gm in 250 mls @ 166.667 mls/hr 07/06/22 10:00 07/08/22 12:24 Vancomycin 1.25 Gm/250 Ml Bag IV 07/09/22 09:59 Not Given Q12HT LUCÍA Vancomycin HCl 1.25 gm in 250 mls @ 166.667 mls/hr 07/08/22 22:00 07/10/22 22:55 Vancomycin 1.25 Gm/250 Ml Bag IV 07/12/22 21:59 166.667 mls/hr QPM LUCÍA Administration Insulin Glargine 80 unit 07/04/22 22:00 07/04/22 22:29 Insulin Glargine 1 Unit SQ 08/03/22 21:59 80 unit HS LUCÍA Administration Insulin Glargine 80 unit 07/05/22 22:00 07/09/22 09:45 Insulin Glargine 1 Unit SQ 08/03/22 21:59 Not Given BID LUCÍA Insulin Glargine 70 unit 07/09/22 22:00 07/11/22 08:54 Insulin Glargine 1 Unit SQ 08/08/22 21:59 70 unit BID LUCÍA Administration Insulin Human Regular 10 unit 07/04/22 13:20 07/04/22 13:37 Insulin Regular, Human 1 Unit IV 07/04/22 13:21 10 unit STAT ONE Administration Insulin Human Regular Confirm 07/04/22 13:32 Insulin Regular, Human 1 Unit Administered 07/04/22 13:33 Dose 10 unit .ROUTE .STK-MED ONE Insulin Human Regular 10 unit 07/04/22 14:23 07/04/22 14:26 Insulin Regular, Human 1 Unit IV 07/04/22 14:24 Not Given STAT ONE Insulin Human Regular 10 unit 07/04/22 14:21 07/04/22 14:30 Insulin Regular, Human 1 Unit IV 07/04/22 14:22 10 unit STAT ONE Administration Insulin Human Regular Confirm 07/04/22 14:28 Insulin Regular, Human 1 Unit Administered 07/04/22 14:29 Dose 10 unit .ROUTE .STK-MED ONE Insulin Human Regular 0 unit 07/04/22 16:15 07/11/22 16:52 Insulin Regular, Human 1 Unit SQ 08/03/22 16:14 7 unit UD PRN Administration HYPERGLYCEMIA Ketorolac Tromethamine 30 mg 07/04/22 11:45 07/04/22 11:49 Ketorolac Tromethamine 30 Mg/Ml Inj IV 07/04/22 11:46 30 mg STAT ONE Administration Ketorolac Tromethamine Confirm 07/04/22 11:48 Ketorolac Tromethamine 30 Mg/Ml Inj Administered 07/04/22 11:49 Dose 30 mg .ROUTE .STK-MED ONE Lisinopril 40 mg 07/05/22 10:00 07/05/22 09:41 Lisinopril 20 Mg Tablet PO 08/04/22 09:59 40 mg DAILY LUCÍA Administration Lisinopril 20 mg 07/05/22 22:00 07/11/22 08:56 Lisinopril 20 Mg Tablet PO 08/04/22 09:59 20 mg BID LUCÍA Administration Non-Formulary Medication 1 each 07/06/22 08:38 07/06/22 10:04 Pharmacy Dose Request: Vancomycin 1 Each IV 07/06/22 08:39 1 each STAT STA Administration Non-Formulary Medication 1 each 07/11/22 15:53 07/11/22 18:41 Pharmacy Dosing Request MC 07/11/22 15:54 1 each STAT ONE Administration Nystatin 0 gm 07/10/22 17:00 07/11/22 18:40 Nystatin Cream 30 Gm 30 Gm Tube TOP 08/09/22 16:59 1 gm QID LUCÍA Administration Ondansetron HCl 4 mg 07/04/22 16:15 07/11/22 15:38 Ondansetron Hcl 4 Mg/2 Ml Vial IV 08/03/22 16:14 4 mg Q6H PRN PRN Administration NAUSEA/VOMITING Oxycodone/Acetaminophen 1 tab 07/05/22 15:00 07/09/22 08:59 Oxycodone Hcl/Apap 5 Mg/325 Mg Tablet PO 07/10/22 14:59 1 tab TID LUCÍA Administration Oxycodone/Acetaminophen 1 tab 07/09/22 12:58 07/11/22 12:34 Oxycodone / Apap 10/325 Mg 1 Tablet PO 07/14/22 12:57 1 tab Q6H PRN PRN Administration PAIN Pantoprazole Sodium 40 mg 07/05/22 10:00 07/05/22 09:34 Pantoprazole 40 Mg Vial IV 08/04/22 09:59 40 mg Q24H10 LUCÍA Administration Pantoprazole Sodium 40 mg 07/05/22 22:00 07/11/22 08:56 Protonix (Pantoprazole) 40 Mg Tablet PO 08/04/22 21:59 40 mg BID LUCÍA Administration Potassium Chloride 20 meq 07/05/22 10:00 07/05/22 09:39 Potassium Chloride Tab 10 Meq Tab PO 08/04/22 09:59 20 meq DAILY LUCÍA Administration Potassium Chloride 10 meq 07/06/22 10:00 07/09/22 08:57 Potassium Chloride Tab 10 Meq Tab PO 08/04/22 09:59 10 meq DAILY LUCÍA Administration Potassium Chloride 10 meq 07/09/22 22:00 07/11/22 08:56 Potassium Chloride Tab 10 Meq Tab PO 08/08/22 21:59 10 meq BID LUCÍA Administration Pramipexole Dihydrochloride 0.5 mg 07/05/22 22:00 07/11/22 08:55 Pramipexole Di-Hcl 0.5 Mg Tab PO 08/04/22 21:59 0.5 mg BID LUCÍA Administration Prochlorperazine Edisylate 5 mg 07/10/22 06:18 07/10/22 06:42 Prochlorperazine Edisylate 10 Mg/2 Ml Vial IV 07/10/22 06:19 5 mg ONCE ONE Administration Simvastatin 20 mg 07/05/22 14:00 07/11/22 08:56 Simvastatin 20 Mg Tablet PO 08/04/22 13:59 20 mg DAILY LUCÍA Administration Intake & Output (Last 24 hours) 07/09/22 07/10/22 07/11/22 07/12/22 11:59 11:59 11:59 11:59 Intake Total 620 1200 960 480 Output Total 250 300 Balance 370 1200 660 480 Weight 128.1 kg 128.1 kg 128.1 kg Laboratory Results (Last 24 hours) 07/11/22 07/11/22 07/11/22 16:41 11:17 06:23 WBC RBC Hgb Hct MCV MCH MCHC RDW Plt Count MPV Gran % Immature Gran % (Auto) Nucleat RBC Rel Count Eos # (Auto) Immature Gran # (Auto) Absolute Lymphs (auto) Absolute Monos (auto) Absolute Nucleated RBC Lymphocytes % Monocytes % Eosinophils % Basophils % Absolute Granulocytes Basophils # Sodium Potassium Chloride Carbon Dioxide Anion Gap BUN Creatinine Estimated GFR Glucose POC Glucometer 212 H 177 H 143 H Calcium Total Bilirubin AST ALT Alkaline Phosphatase Serum Total Protein Albumin 07/11/22 07/11/22 07/10/22 04:42 04:42 20:39 WBC 5.0 RBC 3.77 L Hgb 10.9 L Hct 33.8 L MCV 89.7 MCH 28.9 MCHC 32.2 RDW 14.7 H Plt Count 110 L MPV 11.7 H Gran % 49.9 Immature Gran % (Auto) 0.4 Nucleat RBC Rel Count 0.0 Eos # (Auto) 0.20 Immature Gran # (Auto) 0.02 Absolute Lymphs (auto) 1.56 Absolute Monos (auto) 0.69 Absolute Nucleated RBC 0.00 Lymphocytes % 31.3 Monocytes % 13.8 H Eosinophils % 4.0 Basophils % 0.6 Absolute Granulocytes 2.49 Basophils # 0.03 Sodium 138 Potassium 3.6 Chloride 102 Carbon Dioxide 33 H Anion Gap 5.7 BUN 23 H Creatinine 0.94 Estimated GFR > 60.0 Glucose 162 H POC Glucometer 213 H Calcium 8.2 L Total Bilirubin 0.60 AST 28 ALT 18 Alkaline Phosphatase 91 Serum Total Protein 6.2 L Albumin 2.8 L Orders (Last 24 hours) Category Date Time Status Enema STAT Care 07/11/22 09:56 Completed Miscellaneous Nursing Order Q12H Care 07/11/22 20:00 Completed Discharge Routine Discharge 07/11/22 Ordered Discharge/Telephone Order Routine Discharge 07/11/22 Active CBC W DIFF AM.LAB Lab 07/11/22 04:42 Completed CMP AM.LAB Lab 07/11/22 04:42 Completed POCT GLUCOSE Stat Lab 07/10/22 20:39 Completed POCT GLUCOSE Stat Lab 07/11/22 06:23 Completed POCT GLUCOSE Stat Lab 07/11/22 11:17 Completed POCT GLUCOSE Stat Lab 07/11/22 16:41 Completed Vancomycin, Trough Urgent Lab 07/11/22 21:30 Ordered Docusate Sodium 100 mg [Docusate Sodium 100 MG] Med 07/11/22 10:00 Discontinued 100 mg PO BID Pharmacy Dosing Request Med 07/11/22 15:53 Discontinued 1 each STAT ONE Therapuetic Drug Level Monitor [Trough Drug Levels] Med 07/11/22 21:30 Discontinued 1 IJ 1XONLY ONE Patient Care Notes (Last 24 hours) 07/11/22 16:17 Physical Therapy Note by Andrew (Blaze#[id number]),Tessie THERAPY WAS ATTEMPTED THIS AFTERNOON. PATIENT WAS SEEN AT 13:30 LYING IN BED WITH B LE WRAPPED IN [place], CAM BOOT ON R FOOT AND B LE ELEVATED ON PILLOWS. SHE REFUSED THERAPY TODAY STATING SHE HAD BEEN CONSTIPATED AND HAD BEEN ON AND OFF THE COMMODE MULTIPLE TIMES THIS AM AND DUE TO STRAINING, HER B LE WERE VERY SORE. SHE NOTED STILL BEING IN A LOT OF PAIN IN B LE DESPITE HAVING HAD A PAIN PILL ABOUT AN HOUR PRIOR TO PT ENTERING HER ROOM. SHE NOTED SHE DOES LEG EXERCISES IN BED MULTIPLE TIMES A DAY. SHE NOTED FEELING SLEEPY FROM THE PAIN MEDICATION. Initialized on 07/11/22 16:17 - END OF NOTE 07/11/22 12:39 Case Management Note by Ayaka Mclean S/W DR. CHUNG'S NURSE ABOUT POSSIBLE DC IF APPROVED FOR FACILITY-SEE THE FOLLOWING ORDERS FOR NH -OKAY TO DC TO SNF WHEN FACILITY READY -UNNA BOOTS TO BILATERAL LEGS, CHANGE ON MON, WED, FRI. -UNDER UNNA BOOT ON RIGHT- CLEAN WOUND WITH IDODINE, PLACE ADAPTIC, COVER WITH 4X4 FOLLOWED BY UNNA BOOT. -NON WTBEARING TO RIGHT LEG -KEEP CAM BOOT IN PLACE -ASPIRIN 325 MG DAILY FOR DVT PROPHYLAXIS -ANTIBIOTICS PER PRIMARY MD PLEASE -FOLLOW UP WITH DR. CHUNG NEXT WEEK THE ABOVE ALSO PLACED IN ORDERS AND COPY PLACED ON CHART Initialized on 07/11/22 12:39 - END OF NOTE 07/11/22 10:13 Case Management Note by Ayaka Mclean PRECERT STILL PENDING WITH ENVIVE AT THIS TIME. PATIENT UPDATED AND STILL AGREEABLE TO GO AT DC Initialized on 07/11/22 10:13 - END OF NOTE 07/11/22 05:50 Nursing Note by Orin Riley pt insisting on sitting on side of bed, et requesting pain med. pt advised to hold off on pain med until ready to lie back down as could become drowsy et fall out of bed, given h/o falls Initialized on 07/11/22 05:50 - END OF NOTE 07/10/22 22:07 EARLY CHILDHOOD DIRECTOR Note by Antonietta Schulte pt had a very small BM at this time. Initialized on 07/10/22 22:07 - END OF NOTE - Vitals & Intake/Output Vital Signs: Vital Signs Temperature 97.4 F 07/11/22 16:00 Pulse Rate 76 07/11/22 16:00 Respiratory Rate 17 07/11/22 16:00 Blood Pressure 132/69 07/11/22 16:00 O2 Sat by Pulse Oximetry 93 L 07/11/22 16:00 Intake & Output: Intake & Output 07/09/22 07/10/22 07/11/22 07/12/22 11:59 11:59 11:59 11:59 Intake Total 620 1200 960 480 Output Total 250 300 Balance 370 1200 660 480 Weight 128.1 kg 128.1 kg 128.1 kg - Lab Result Diagrams: 07/11/22 04:42 07/11/22 04:42 Lab Results-Last 24 Hrs: Lab Results-Last 24 Hours 07/10/22 07/11/22 07/11/22 Range/Units 20:39 04:42 04:42 WBC 5.0 (4.0-10.5) x10^3/uL RBC 3.77 L (4.1-5.4) x10^6/uL Hgb 10.9 L (12.0-16.0) g/dL Hct 33.8 L (35-47) % MCV 89.7 (78-100) fL MCH 28.9 (26-32) pg MCHC 32.2 (32-36) g/dL RDW 14.7 H (11.5-14.0) % Plt Count 110 L (150-450) x10^3/uL MPV 11.7 H (7.5-11.0) fL Gran % 49.9 (36.0-66.0) % Immature Gran % (Auto) 0.4 (0.00-0.4) % Nucleat RBC Rel Count 0.0 (0.00-0.1) % Eos # (Auto) 0.20 (0-0.5) x10^3/uL Immature Gran # (Auto) 0.02 (0.00-0.03) x10^3u/L Absolute Lymphs (auto) 1.56 (1.0-4.6) x10^3/uL Absolute Monos (auto) 0.69 (0.0-1.3) x10^3/uL Absolute Nucleated RBC 0.00 (0.00-0.01) x10^3u/L Lymphocytes % 31.3 (24.0-44.0) % Monocytes % 13.8 H (0.0-12.0) % Eosinophils % 4.0 (0.00-5.0) % Basophils % 0.6 (0.0-0.4) % Absolute Granulocytes 2.49 (1.4-6.9) x10^3/uL Basophils # 0.03 (0-0.4) x10^3/uL Sodium 138 (137-145) mmol/L Potassium 3.6 (3.5-5.1) mmol/L Chloride 102 (98-107) mmol/L Carbon Dioxide 33 H (22-30) mmol/L Anion Gap 5.7 (5-15) MEQ/L BUN 23 H (7-17) mg/dL Creatinine 0.94 (0.52-1.04) mg/dL Estimated GFR > 60.0 ML/MIN Glucose 162 H (74-106) mg/dL POC Glucometer 213 H (74 to 106) mg/dL Calcium 8.2 L (8.4-10.2) mg/dL Total Bilirubin 0.60 (0.2-1.3) mg/dL AST 28 (14-36) U/L ALT 18 (0-35) U/L Alkaline Phosphatase 91 (38-126) U/L Serum Total Protein 6.2 L (6.3-8.2) g/dL Albumin 2.8 L (3.5-5.0) g/dL 07/11/22 07/11/22 07/11/22 Range/Units 06:23 11:17 16:41 WBC (4.0-10.5) x10^3/uL RBC (4.1-5.4) x10^6/uL Hgb (12.0-16.0) g/dL Hct (35-47) % MCV (78-100) fL MCH (26-32) pg MCHC (32-36) g/dL RDW (11.5-14.0) % Plt Count (150-450) x10^3/uL MPV (7.5-11.0) fL Gran % (36.0-66.0) % Immature Gran % (Auto) (0.00-0.4) % Nucleat RBC Rel Count (0.00-0.1) % Eos # (Auto) (0-0.5) x10^3/uL Immature Gran # (Auto) (0.00-0.03) x10^3u/L Absolute Lymphs (auto) (1.0-4.6) x10^3/uL Absolute Monos (auto) (0.0-1.3) x10^3/uL Absolute Nucleated RBC (0.00-0.01) x10^3u/L Lymphocytes % (24.0-44.0) % Monocytes % (0.0-12.0) % Eosinophils % (0.00-5.0) % Basophils % (0.0-0.4) % Absolute Granulocytes (1.4-6.9) x10^3/uL Basophils # (0-0.4) x10^3/uL Sodium (137-145) mmol/L Potassium (3.5-5.1) mmol/L Chloride (98-107) mmol/L Carbon Dioxide (22-30) mmol/L Anion Gap (5-15) MEQ/L BUN (7-17) mg/dL Creatinine (0.52-1.04) mg/dL Estimated GFR ML/MIN Glucose (74-106) mg/dL POC Glucometer 143 H 177 H 212 H (74 to 106) mg/dL Calcium (8.4-10.2) mg/dL Total Bilirubin (0.2-1.3) mg/dL AST (14-36) U/L ALT (0-35) U/L Alkaline Phosphatase (38-126) U/L Serum Total Protein (6.3-8.2) g/dL Albumin (3.5-5.0) g/dL Micro Results-Entire Visit: Accuchecks Date 07/11/22 Date 07/11/22 Date 07/10/22 Time 16:53 Time 06:55 Time 21:00 - Procedures and Test Procedures and Tests throughout Hospitalization: Therapy Orders & Screens 07/04/22 16:15 Respiratory Therapy Consult ONCE Comment: Reason For Exam: 07/05/22 15:47 Respiratory Therapy Assessment DAILY Comment: Diagnosis: UNCONTROLLED DIABETES MELLITUS, LLE CELLULITIS, DIABETIC ULCER 07/07/22 07:00 PT Eval & Treat (MD Order) ONCE Reason for Eval:: eschar RLE Diagnosis: UNCONTROLLED DIABETES MELLITUS, LLE CELLULITIS, DIABETIC ULCER 07/08/22 23:13 Oxygen Nasal Cannula 3 lpm Comment: Diagnosis: CELLULITIS, UNCONTROLLED DM Discharge Exam General Appearance: no apparent distress, alert Neurologic Exam: alert, oriented x 3, cooperative, normal mood/affect, nml cerebellar function, sensation nml, No motor deficits Eye Exam: PERRL, EOMI, eyes nml inspection Ears, Nose, Throat Exam: normal ENT inspection, pharynx normal, moist mucous membranes Neck Exam: normal inspection, non-tender, supple, full range of motion Respiratory Exam: normal breath sounds, lungs clear, No respiratory distress Cardiovascular Exam: regular rate/rhythm, normal heart sounds Gastrointestinal/Abdomen Exam: soft, No tenderness, No mass Pelvic Exam: deferred Rectal Exam: deferred Back Exam: normal inspection, normal range of motion, No CVA tenderness, No vertebral tenderness Extremity Exam: normal inspection, normal range of motion Skin Exam: normal color, warm, dry Final Diagnosis/Problem List - Final Discharge Diagnosis/Problem (1) Cellulitis, leg Status: Resolved (2) Medial malleolar fracture Status: Resolved Code(s): S82.53XA - DISP FX OF MEDIAL MALLEOLUS OF UNSP TIBIA, INIT FOR CLOS FX (3) Venous insufficiency (chronic) (peripheral) Status: Chronic (4) Uncontrolled diabetes mellitus Status: Chronic Code(s): E11.65 - TYPE 2 DIABETES MELLITUS WITH HYPERGLYCEMIA - Discharge Discharge Date: 07/11/22 Disposition: DC TO ANY "OTHER" SENIOR CARE Condition: Stable Prescriptions: New Aspirin EC 325 mg [Ecotrin 325 MG] 325 mg PO DAILY #30 Docusate Sodium 100 mg [Docusate Sodium 100 MG] 100 mg PO BID cap Nystatin Cream 30 gm [Nystop 30 gm Cream] 0 gm TOP QID Famotidine 20 mg [Pepcid 20 MG] 20 mg PO BID tablet Cefdinir 300 mg PO BID #30 cap Continue Lisinopril 20 mg [Zestril 20 MG] 20 mg PO BID Furosemide [Lasix] 40 mg PO DAILY Potassium Chloride Tab* [Klor Con] 10 meq PO DAILY Insulin Glargine,Hum.rec.anlog [Basaglar Kwikpen U-100] 80 unit SQ BID Atorvastatin Calcium [Lipitor 20MG Tablet] 20 mg PO DAILY Buprenorphine HCl [Belbuca] 750 mcg PO Omeprazole 20 MG [Prilosec 20 mg] 40 mg PO BID Insulin Lispro [Admelog Solostar] 0 unit SQ ACHS Oxycodone HCl/Acetaminophen [Percocet 5-325 mg Tablet] 1 each PO TID Pramipexole Di-HCl 0.5 mg [Mirapex 0.5 MG Tablet] 0.5 mg PO BID Albuterol Sulfate [Albuterol Sulfate Hfa] 1 puff IH Q4HPRN PRN PRN Reason: Shortness Of Breath/Wheezing Gabapentin Enacarbil [Horizant] 600 mg PO Additional Instructions: ENVIVE SENIOR CARE/REHAB ORDERS: -1999 ADA DIET -ACCUCHECKS ACHS -PT/OT EVAL AND TREAT -UP WITH ASSISTANCE ONLY -UNNA BOOTS TO BILATERAL LEGS, CHANGE ON MON, WED, FRI. -UNDER UNNA BOOT ON RIGHT- CLEAN WOUND WITH IODINE, PLACE ADAPTIC, COVER WITH 4X4 FOLLOWED BY UNNA BOOT. -NON WTBEARING TO RIGHT LEG -KEEP CAM BOOT IN PLACE -FOLLOW UP WITH DR. CHUNG NEXT WEEK -SEE ATTACHED MEDICATION LIST FOR MEDICATION ORDERS. Follow up with: SHELDON HOSKINS DPM [ACTIVE STAFF] - Call for Appointment Forms: Transfer Record Inter-Agency
[2022-07-11] MEDS ORDERED: TROUGH DRUG LEVELS IJ ONE (21:30)
--- NOTE | 2022-07-14 15:02 | PCM.NOTE ---
Date and Time: 07/11/22 1501 Subjective Assessment: Doing ok Physical Exam - Narrative Narrative Physical Exam: Podiatry Physical Exam OBJECTIVE DATA Vital Signs: Pain Assessment - Last Documented Pain Intensity 5 Pain Scale Used 0-10 Pain Scale Intake and Output: Intake & Output 07/12/22 07/13/22 07/14/22 07/15/22 11:59 11:59 11:59 11:59 Intake Total 480 Balance 480 Multi-Disciplinary Progress Notes: Multi-Disciplinary Progress Notes 07/14/22 09:19 Case Management Note by Ayaka Mclean S/W NURSE [facility]ANK AT [facility]- SHE REPORTS PATIENT WAS RECEIVED OKAY AND FAR SHE KNOWS THEY RECEIVED THEIR ORDERS. SHE WAS REMINDED ON NONWT BEARING STATUS AND DRESSING CHANGES Initialized on 07/14/22 09:19 - END OF NOTE Assessment/Plan (1) Venous insufficiency (chronic) (peripheral) Status: Chronic Assessment & Plan: Radiographs reviewed.Right ankle with displaced medial malleolar fracture Based on clinical examination, review of medical record and radiographs at this time; patient is not a good surgical candidate. Discussed possible non weight bearing and imrpovement of A1c prior to surgical intervention in favor of a arthrodesis. Patient will consider this option. For venous insufficicency ulceration to the right leg. debridement preformed revealing full thickness ulceration with serous drainage ,easurements 3.2 x 1.9. negative for any obvious signs of purulence. Patient would benefit from compression therapy consisting of unna boots to the bilateral lower extremity. Patient has had right leg DVT historically. Ultrasound at this time demonstrates no venous occlusions. Recommend wheel chair on discharge- paient has signficant mobility limitations that singficantly impairs the ability to participate in bathing, grooming, dressing and toileting herself that which cannot be resolved with the use of a walker or a cane. Patients home has adequate room for MWC. Patient is physically and mentally able with UE function to operate MW. Non weight bearing to right lower extremity stressed at this time. will reassess capacity for surgical intervention once A1c improved to 8.0 or below. (2) Ulcer of varicose vein of right leg Status: Acute Code(s): I83.019 - VARICOSE VEINS OF RIGHT LOWER EXTREMITY W ULCER OF UNSP SITE; L97.919 - NON-PRS CHRONIC ULC UNSP PRT OF R LOW LEG W UNSP SEVERITY (3) Medial malleolar fracture Status: Resolved Qualifiers: Encounter type: subsequent encounter Fracture type: closed Fracture alignment: nondisplaced Laterality: right Fracture healing: with routine healing Qualified Code(s): S82.54XD - Nondisplaced fracture of medial malleolus of right tibia, subsequent encounter for closed fracture with routine healing Code(s): S82.53XA - DISP FX OF MEDIAL MALLEOLUS OF UNSP TIBIA, INIT FOR CLOS FX (4) Osteoarthritis of ankle and foot Status: Acute Code(s): M19.079 - PRIMARY OSTEOARTHRITIS, UNSPECIFIED ANKLE AND FOOT (5) Cellulitis, leg Status: Resolved Qualifiers: Laterality: right Qualified Code(s): L03.115 - Cellulitis of right lower limb (6) DVT prophylaxis Status: Acute (7) Uncontrolled diabetes mellitus Status: Chronic Qualifiers: Diabetes mellitus type: type 2 Glycemic state: with hyperglycemia Qualified Code(s): E11.65 - Type 2 diabetes mellitus with hyperglycemia Code(s): E11.65 - TYPE 2 DIABETES MELLITUS WITH HYPERGLYCEMIA
== END 2022-07-11 19:30 | DRG 603 ==
LOC: ED 10:48 → MED SURG 16:40 → ED 07-06 10:48 → OBSVTOIN 07-06 11:00 → MED SURG 07-06 16:40
PROVIDERS: ADMIT General Practice; ATTEND General Practice
DX: L03.115 Cellulitis of right lower limb (principal); S82.53XA Displaced fracture of medial malleolus of unspecified tibia, initial encounter for closed fracture; I87.2 Venous insufficiency (chronic) (peripheral); E11.65 Type 2 diabetes mellitus with hyperglycemia; E11.621 Type 2 diabetes mellitus with foot ulcer; E78.5 Hyperlipidemia, unspecified; I11.0 Hypertensive heart disease with heart failure; I50.9 Heart failure, unspecified; D69.6 Thrombocytopenia, unspecified; M19.019 Primary osteoarthritis, unspecified shoulder; G47.33 Obstructive sleep apnea (adult) (pediatric); I83.019 Varicose veins of right lower extremity with ulcer of unspecified site; M19.071 Primary osteoarthritis, right ankle and foot; Z20.828 Contact with and (suspected) exposure to other viral communicable diseases; Z79.899 Other long term (current) drug therapy
CPT/HCPCS: 0241U; 11042; 27760; 29580; 36000; 36415; 70450; 71045; 73552; 73562; 73590; 73610; 80053; 80202; 81001; 82947; 83036; 85025; 93268; 93971; 94760; 94762; 96365; 96372; 96374; 96376; 97161; 97530; 99024; 99223; 99285; J0696; J1170; J1650; J1815; J1885; J2405; A9270-GY; G0378; J3370

== ENCOUNTER 2022-09-20 12:15 | Emergency (ER) | payer MEDICAID ==
--- NOTE | 2022-09-20 12:21 | ERPHSYRPT ---
- History of Present Illness Time Seen by Provider: 09/20/22 12:21 Source: patient, EMS, old records Exam Limitations: no limitations Physician History: This is a 57-year-old morbidly obese diabetic white female patient of Dr. Hernandez (PCP) and Dr. Louis (podiatry). Dr. Louis has evaluated this patient and he feels she is not a good surgical candidate. Patient has known history of a right ankle displaced comminuted medial malleolus fracture with talar subluxation and diffuse soft tissue swelling. Patient has been treated as an outpatient. She does not participate in ambulating. She is in a wheelchair for mobilization. Patient has an appointment to see Dr. Louis on 09/22/2022. Patient was brought into the emergency department by the paramedics. Additional history was obtained from reviewing the patient's last inpatient hospitalization and by the paramedics. Patient was having increased right foot and ankle pain in the last 3 days. She is no longer on any antibiotics. She felt that the there was more pain and swelling and redness present. Patient has a history of hypertension, insulin-dependent diabetes, hyperlipidemia, gastroesophageal refl ux disease and DVT. Method of Injury: other (No new injury) Quality: aching Severity of Pain-Max: moderate Severity of Pain-Current: moderate Lower Extremities Pain: foot: right, ankle: right Modifying Factors: Improves With: movement Associated Symptoms: other (Does not bear weight.) Allergies/Adverse Reactions: adhesive tape Adverse Reaction (Intermediate, Verified 09/20/22 12:26) Home Medications: Lisinopril 20 mg [Zestril 20 MG] 20 mg PO BID 08/25/12 [History] Furosemide [Lasix] 40 mg PO DAILY 10/06/13 [History] Atorvastatin Calcium [Lipitor 20MG Tablet] 20 mg PO DAILY 06/11/17 [History] Potassium Chloride Tab* [Klor Con] 20 meq PO BID 06/11/17 [History] Albuterol Sulfate [Albuterol Sulfate Hfa] 1 puff IH Q4HPRN PRN 07/04/22 [History] Pramipexole Di-HCl 0.5 mg [Mirapex 0.5 MG Tablet] 2 tab PO HS 07/04/22 [History] Amoxicillin/Potassium Clav [Amox-Clav 875-125 mg Tablet] 1 tab PO BID 09/20/22 [History] Cyanocobalamin (Vitamin B-12) [Vitamin B12] 1,000 mcg PO DAILY 09/20/22 [History] Ergocalciferol (Vitamin D2) [Vitamin D2] 1 cap PO WEEKLY 09/20/22 [History] Gabapentin Enacarbil [Horizant] 1 tab PO BID 09/20/22 [History] Insulin Glargine [Lantus Insulin] 80 unit SQ BID 09/20/22 [History] Ondansetron [Ondansetron Odt ] 1 tab PO Q8H PRN PRN 09/20/22 [History] Hx Tetanus, Diphtheria Vaccination/Date Given: Yes Hx Influenza Vaccination/Date Given: Yes Hx Pneumococcal Vaccination/Date Given: No Travel Risk - International Travel Have you traveled outside of the country in past 3 weeks: No - Coronavirus Screening Are you exhibiting any of the following symptoms?: No Close contact with a COVID-19 positive Pt in past 14-21 Days: No - Vaccine Status Have you recieved a Covid-19 vaccination: No - Review of Systems Constitutional: No Symptoms Eyes: No Symptoms Ears, Nose, & Throat: No Symptoms Respiratory: No Symptoms Cardiac: No Symptoms Abdominal/Gastrointestinal: No Symptoms Genitourinary Symptoms: No Symptoms Musculoskeletal: Joint Pain (Right foot and ankle pain) Skin: Other (Swelling and mild redness right foot and ankle with open wound of the right lateral malleolus) Neurological: No Symptoms Psychological: No Symptoms Endocrine: No Symptoms Hematologic/Lymphatic: No Symptoms Immunological/Allergic: No Symptoms All Other Systems: Reviewed and Negative - Past Medical History Pertinent Past Medical History: Yes Neurological History: No Pertinent History ENT History: No Pertinent History Cardiac History: Deep Vein Thrombosis, High Cholesterol, Hypertension Respiratory History: CHF Endocrine Medical History: Diabetes Type II Musculoskeletal History: Rheumatoid Arthritis GI Medical History: No Pertinent History History: No Pertinent History Psycho-Social History: No Pertinent History Female Reproductive Disorders: No Pertinent History Other Medical History: BURSITIS TO BOTH SHOULDERS, NEUROPATHY THROUGHOUT HER BODY - Past Surgical History Past Surgical History: Yes Neuro Surgical History: No Pertinent History Cardiac: No Pertinent History Respiratory: No Pertinent History Gastrointestinal: Other Genitourinary: No Pertinent History Musculoskeletal: No Pertinent History Female Surgical History: Tubal Ligation, Other Other Surgical History: d & c, (rectal surgery x3, cyst removed from rectum). cyst removed from pancreas - Social History Smoking Status: Never smoker Exposure to second hand smoke: Yes Drug Use: none Patient Lives Alone: No Significant Family History: no pertinent family hx - Nursing Vital Signs Nursing Vital Signs: Initial Vital Signs Temperature 98.8 F 09/20/22 12:27 Pulse Rate 82 09/20/22 12:27 Respiratory Rate 18 09/20/22 12:27 Blood Pressure 131/60 09/20/22 12:27 O2 Sat by Pulse Oximetry 97 09/20/22 12:27 Pain Scale Pain Intensity 7 - Physical Exam General Appearance: no apparent distress, alert, anxiety, obese Eyes, Ears, Nose, Throat Exam: normal ENT inspection, moist mucous membranes Neck Exam: normal inspection, non-tender, supple, full range of motion Cardiovascular/Respiratory Exam: chest non-tender, normal breath sounds, regular rate/rhythm, heart sounds normal, no respiratory distress Gastrointestinal/Abdominal Exam: non-tender, soft Back Exam: normal inspection, normal range of motion, No CVA tenderness, No vertebral tenderness Hips Exam: bilateral: non-tender, normal inspection, normal range of motion, no evidence of injury Legs Exam: bilateral leg: non-tender, normal inspection, normal range of motion, no evidence of injury Knees Exam: bilateral knee: non-tender, normal inspection, normal range of motion, no evidence of injury Ankle Exam: right ankle: pain, soft tissue tenderness (Right lateral malleolus wound), swelling, left ankle: non-tender, normal inspection, normal range of motion, no evidence of injury Foot Exam: right foot: swelling (Dorsum right foot), left foot: non-tender, normal range of motion, no evidence of injury, bilateral foot: other (Patient has bilateral lymphedema of the feet and ankles) Neuro/Tendon Exam: normal motor functions, normal tendon functions, responds to pain, no evidence tendon injury Mental Status Exam: alert, oriented x 3, cooperative Skin Exam: other (See above extremity exam section and ankles and feet) SpO2 Interpretation: normal O2 Delivery: Room Air - Course Nursing assessment & vital signs reviewed: Yes Ordered Tests: Active Orders 24 hr Category Date Time Status IV Insertion STAT Care 09/20/22 12:46 Active Wound Care ROUTINE Care 09/20/22 12:46 Active BLOOD CULTURE Stat Lab 09/20/22 13:05 Received CBC W DIFF Stat Lab 09/20/22 13:00 Completed CMP Stat Lab 09/20/22 13:00 Completed CULTURE,WOUND Stat Lab 09/20/22 12:46 Received Lactic Acid Stat Lab 09/20/22 12:46 Completed Medication Summary Generic Name Dose Route Start Last Admin Trade Name Freq PRN Reason Stop Dose Admin Sodium Chloride 1,000 mls @ 100 mls/hr 09/20/22 13:00 09/20/22 13:24 Sodium Chloride 0.9% 1000 Ml IV 10/20/22 12:59 100 mls/hr .Q10H LUCÍA Administration Levofloxacin/Dextrose 500 mg in 100 mls @ 100 mls/hr 09/20/22 14:53 Levofloxacin 500mg/100ml D5w IV 09/20/22 15:52 STAT STA Discontinued Medications Generic Name Dose Route Start Last Admin Trade Name Sengq PRN Reason Stop Dose Admin Morphine Sulfate 4 mg 09/20/22 12:49 09/20/22 13:24 Morphine Sulfate 4 Mg/Ml Injection IV 09/20/22 12:50 4 mg STAT ONE Administration Morphine Sulfate Confirm 09/20/22 13:23 Morphine Sulfate 4 Mg/Ml Injection Administered 09/20/22 13:24 Dose 4 mg .ROUTE .STK-MED ONE Ondansetron HCl 4 mg 09/20/22 12:49 09/20/22 13:24 Ondansetron Hcl 4 Mg/2 Ml Vial IV 09/20/22 12:50 4 mg STAT ONE Administration Ondansetron HCl Confirm 09/20/22 13:23 Ondansetron Hcl 4 Mg/2 Ml Vial Administered 09/20/22 13:24 Dose 4 mg .ROUTE .STK-MED ONE Lab/Rad Data: Laboratory Result Diagrams 09/20/22 13:00 09/20/22 13:00 Laboratory Results 09/20/22 09/20/22 09/20/22 Range/Units 13:05 13:00 13:00 WBC 7.0 (4.0-10.5) x10^3/uL RBC 3.74 L (4.1-5.4) x10^6/uL Hgb 10.0 L (12.0-16.0) g/dL Hct 33.1 L (35-47) % MCV 88.5 (78-100) fL MCH 26.7 (26-32) pg MCHC 30.2 L (32-36) g/dL RDW 14.4 H (11.5-14.0) % Plt Count 163 (150-450) x10^3/uL MPV 10.9 (7.5-11.0) fL Gran % 76.8 H (36.0-66.0) % Immature Gran % (Auto) 0.4 (0.00-0.4) % Nucleat RBC Rel Count 0.0 (0.00-0.1) % Eos # (Auto) 0.16 (0-0.5) x10^3/uL Immature Gran # (Auto) 0.03 (0.00-0.03) x10^3u/L Absolute Lymphs (auto) 0.85 L (1.0-4.6) x10^3/uL Absolute Monos (auto) 0.55 (0.0-1.3) x10^3/uL Absolute Nucleated RBC 0.00 (0.00-0.01) x10^3u/L Lymphocytes % 12.2 L (24.0-44.0) % Monocytes % 7.9 (0.0-12.0) % Eosinophils % 2.3 (0.00-5.0) % Basophils % 0.4 (0.0-0.4) % Absolute Granulocytes 5.33 (1.4-6.9) x10^3/uL Basophils # 0.03 (0-0.4) x10^3/uL Sodium 138 (137-145) mmol/L Potassium 4.5 (3.5-5.1) mmol/L Chloride 104 (98-107) mmol/L Carbon Dioxide 28 (22-30) mmol/L Anion Gap 10.7 (5-15) MEQ/L BUN 34 H (7-17) mg/dL Creatinine 1.13 H (0.52-1.04) mg/dL Estimated GFR 52.4 ML/MIN Glucose 204 H (74-106) mg/dL Lactic Acid (0.4-2.0) Calcium 7.9 L (8.4-10.2) mg/dL Total Bilirubin 0.50 (0.2-1.3) mg/dL AST 25 (14-36) U/L ALT 14 (0-35) U/L Alkaline Phosphatase 114 (38-126) U/L Serum Total Protein 6.7 (6.3-8.2) g/dL Albumin 2.7 L (3.5-5.0) g/dL Influenza Type A Ag NEGATIVE (NEGATIVE) Influenza Type B Ag NEGATIVE (NEGATIVE) RSV (PCR) NEGATIVE (NEGATIVE) SARS-CoV-2 (PCR) NEGATIVE (NEGATIVE) 09/20/22 Range/Units 12:46 WBC (4.0-10.5) x10^3/uL RBC (4.1-5.4) x10^6/uL Hgb (12.0-16.0) g/dL Hct (35-47) % MCV (78-100) fL MCH (26-32) pg MCHC (32-36) g/dL RDW (11.5-14.0) % Plt Count (150-450) x10^3/uL MPV (7.5-11.0) fL Gran % (36.0-66.0) % Immature Gran % (Auto) (0.00-0.4) % Nucleat RBC Rel Count (0.00-0.1) % Eos # (Auto) (0-0.5) x10^3/uL Immature Gran # (Auto) (0.00-0.03) x10^3u/L Absolute Lymphs (auto) (1.0-4.6) x10^3/uL Absolute Monos (auto) (0.0-1.3) x10^3/uL Absolute Nucleated RBC (0.00-0.01) x10^3u/L Lymphocytes % (24.0-44.0) % Monocytes % (0.0-12.0) % Eosinophils % (0.00-5.0) % Basophils % (0.0-0.4) % Absolute Granulocytes (1.4-6.9) x10^3/uL Basophils # (0-0.4) x10^3/uL Sodium (137-145) mmol/L Potassium (3.5-5.1) mmol/L Chloride (98-107) mmol/L Carbon Dioxide (22-30) mmol/L Anion Gap (5-15) MEQ/L BUN (7-17) mg/dL Creatinine (0.52-1.04) mg/dL Estimated GFR ML/MIN Glucose (74-106) mg/dL Lactic Acid 1.4 (0.4-2.0) Calcium (8.4-10.2) mg/dL Total Bilirubin (0.2-1.3) mg/dL AST (14-36) U/L ALT (0-35) U/L Alkaline Phosphatase (38-126) U/L Serum Total Protein (6.3-8.2) g/dL Albumin (3.5-5.0) g/dL Influenza Type A Ag (NEGATIVE) Influenza Type B Ag (NEGATIVE) RSV (PCR) (NEGATIVE) SARS-CoV-2 (PCR) (NEGATIVE) - Progress Progress: improved, pain not gone completely Progress Note: 09/20/22 14:57 This patient's medical issue is 1 of moderate complexity. The level of complexity and the work-up performed is based on the review of the patient's past medical history, most recent inpatient hospitalization, review of the patient's medication list, review of the patient's drug allergy list, history of present illness and physical findings on examination. The work-up includes infusion of intravenous Levaquin, CBC, CMP, lactic acid level, blood cultures, and obtaining vital signs. Patient is afebrile. Her lactic acid levels within normal limits. Patient has a normal white blood cell count. We took cultures of the wound of the right ankle. Patient's pain is controlled with narcotic pain medicine. Patient has Percocet at home. We will start her on Levaquin 500 mg orally once a day at home. We will electronically send the antibiotic to her pharmacy. Patient is to keep [facility]. Counseled pt/family regarding: lab results, diagnosis, need for follow-up Medical Desision Making - Independent Historian Additional History obtained from: [employer]/EMT - External Record(s) Reviewed Records reviewed as a part of evaluation & management: Inpatient, Discharge Summary - Discussion of managment Agreed on:: Treatment plan, need for follow-up - Social Determinants of Health Limited access to: transportation - Diagnostic Testing Diagnostic test were ordered, analyzed, and reviewed by me: Yes - Risk of complications The pt has a mod risk of morbidity or mortality based on: Need for prescription drug management - Departure Departure Disposition: Home Clinical Impression: Cellulitis of right ankle Condition: Stable Critical Care Time: No Referrals: ROB HERNANDEZ MD [Primary Care Provider] - Follow up/PCP as directed Additional Instructions: Drink plenty of fluids. Monitor your blood sugar closely at home. Use your Percocet pain medicine as prescribed. Take your antibiotics as prescribed. Keep your right lower extremity elevated above the level of your heart. This will help in reducing swelling. Wound care as previously ordered by Dr. Louis. Keep your appointment with Dr. Louis on 09/22/2022. Prescriptions: Levofloxacin [Levaquin 500 MG Tablet] 500 mg PO DAILY #7 tablet
[2022-09-20] MEDS ORDERED: MORPHINE SULFATE 4 MG INJ IV ONE ×2 (12:49→15:41)
[2022-09-20] MEDS ORDERED: Zofran 4 MG/2 ML VIAL IV ONE (12:49)
[2022-09-20] MEDS ORDERED: Sodium Chloride 0.9% 1000 ML 1,000 ML IV SCH (13:00)
[2022-09-20] MEDS ORDERED: MORPHINE SULFATE 4 MG INJ ONE ×2 (13:23→15:49)
[2022-09-20] MEDS ORDERED: Zofran 4 MG/2 ML VIAL ONE (13:23)
[2022-09-20] MEDS ORDERED: Sodium Chloride 0.9% 1000 ML 1,000 ML ONE (13:23)
[2022-09-20 13:55] VITALS: BP 107/39
[2022-09-20 13:58] LABS: Absolute Neutrophil Ct (ANC) 5.33 x10^3/uL (1.4-6.9); BASOPHIL % 0.4 % (0.0-0.4); Basophil (Absolute #) 0.03 x10^3/uL (0-0.4); Eosinophil % 2.3 % (0.00-5.0); Eosinophil (Absolute #) 0.16 x10^3/uL (0-0.5); Hematocrit 33.1 % (35-47); IMMATURE GRAN # 0.03 x10^3u/L (0.00-0.03); IMMATURE GRAN % 0.4 % (0.00-0.4); Lymphocyte (Absolute #) 0.85 x10^3/uL (1.0-4.6); Lymphocytes % 12.2 % (24.0-44.0); Mean Cell Volume 88.5 fL (78-100); Mean Corpuscular Hemoglobin 26.7 pg (26-32); Mean Corpuscular Hgb Concent. 30.2 g/dL (32-36); Mean Platelet Volume 10.9 fL (7.5-11.0); Monocyte (Absolute #) 0.55 x10^3/uL (0.0-1.3); Monocytes % 7.9 % (0.0-12.0); Neutrophil % 76.8 % (36.0-66.0); Platelet Count 163 x10^3/uL (150-450); Red Blood Count 3.74 x10^6/uL (4.1-5.4); Red Cell Distribution Width 14.4 % (11.5-14.0)
[2022-09-20 14:13] LABS: ALBUMIN 2.7 g/dL (3.5-5.0); ANION GAP 10.7 MEQ/L (5-15); BILIRUBIN,TOTAL 0.5 mg/dL (0.2-1.3); Calcium 7.9 mg/dL (8.4-10.2); Creatinine 1 1.13 mg/dL (0.52-1.04); EST GLOMERULAR FILTRATION RATE 52.4 ML/MIN; Potassium 4.5 mmol/L (3.5-5.1); Total Protein 6.7 g/dL (6.3-8.2)
[2022-09-20 14:20] LABS: INFLUENZA A NEGATIVE (NEGATIVE); INFLUENZA B NEGATIVE (NEGATIVE); RESPIRATORY SYNCTIAL VIRUS NEGATIVE (NEGATIVE); SARS-CoV-2 Xpert Express NEGATIVE (NEGATIVE)
[2022-09-20] MEDS ORDERED: Levofloxacin 500MG/100ML D5W 500 MG/100 ML BAG IV STA (14:53)
[2022-09-20] MEDS ORDERED: Levofloxacin 500MG/100ML D5W 500 MG/100 ML BAG IV ONE (15:10)
[2022-09-20 16:17] VITALS: PULSE 70; O2SAT 98
== END 2022-09-20 17:33 | disposition home or self-care (01) ==
LOC: ED 12:15
DX: L03.115 Cellulitis of right lower limb (principal); M79.671 Pain in right foot; M25.571 Pain in right ankle and joints of right foot; I10 Essential (primary) hypertension; E11.9 Type 2 diabetes mellitus without complications; E78.5 Hyperlipidemia, unspecified; Z79.4 Long term (current) use of insulin; Z79.899 Other long term (current) drug therapy; Z28.310 Unvaccinated for COVID-19
CPT/HCPCS: 0241U; 36000; 36415; 80053; 83605; 85025; 87040; 87070; 87077; 87186; 96365; 96374; 96375; 99284; J1956; J2270; J2405

== ENCOUNTER 2022-11-21 06:53 | Day surgery (SDC) | payer MEDICAID ==
[2022-11-21] MEDS ORDERED: BRIDION 200MG/2ML IV ONE (07:06)
[2022-11-21 07:20] LABS: Hematocrit 31.8 % (35-47); Hemoglobin 9.2 g/dL (12.0-16.0); Mean Cell Volume 85.9 fL (78-100); Mean Corpuscular Hemoglobin 24.9 pg (26-32); Mean Corpuscular Hgb Concent. 28.9 g/dL (32-36); Mean Platelet Volume 8.9 fL (7.5-11.0); Platelet Count 153 x10^3/uL (150-450); Red Cell Distribution Width 17.7 % (11.5-14.0); White Blood Count 5.4 x10^3/uL (4.0-10.5)
[2022-11-21 07:36] LABS: ALBUMIN 3.1 g/dL (3.5-5.0); ALKALINE PHOSPHATASE 135 U/L (38-126); ANION GAP 9.5 MEQ/L (5-15); BLOOD UREA NITROGEN 19 mg/dL (7-17); CHLORIDE 100 mmol/L (98-107); Calcium 8.4 mg/dL (8.4-10.2); Carbon Dioxide 35 mmol/L (22-30); EST GLOMERULAR FILTRATION RATE > 60.0 ML/MIN; Glucose 56 mg/dL (74-106); Potassium 3.9 mmol/L (3.5-5.1); SGOT/AST 38 U/L (14-36); SGPT/ALT 18 U/L (0-35); SODIUM 140 mmol/L (137-145); Total Protein 8.3 g/dL (6.3-8.2)
[2022-11-21 07:37] LABS: INR 1.02 (0.8-3.0); PROTIME 11.1 SECONDS (9.4-12.5); PTT 32.4 SECONDS (25.1-36.5)
[2022-11-21] MEDS ORDERED: Lactated Ringers 1,000 ML IV ONE ×3 (07:37→16:26)
[2022-11-21] MEDS ORDERED: D50W 50 ml Abboject IV PRN (07:44)
[2022-11-21] MEDS ORDERED: KEFZOL 1 GM** 3 G in Sodium Chloride 0.9% 50 ML 50 ML IV SCH (07:45)
--- NOTE | 2022-11-21 08:35 | XRAY ---
CLINICAL HISTORY:pre -OP COMPARISON:None; TECHNIQUES:X-ray of the chest, AP view; FINDINGS: A radiographic examination of the chest demonstrates mildly exaggerated broncho-vascular markings and prominent hilar vascular shadows bilaterally. No evidence of focal lung lesions or consolidations. Enlarged cardiac size. Normal configuration of the mediastinum. The bony thorax is unremarkable. The costophrenic and cardiophrenic angles are clear. IMPRESSION: Mildly exaggerated broncho-vascular markings and prominent hilar vascular shadows bilaterally suggest an element of pulmonary congestion, for clinical correlation. Enlarged cardiac size, for echocardiography correlation. No evidence of focal lung lesions or pneumonia. Electronically Signed by: Liz Nelson MD. (11/21/2022 07:12:50 CREDIT COORDINATOR)
[2022-11-21] MEDS ORDERED: D50W 50 ml Abboject IV ONE (08:43)
[2022-11-21] MEDS: Lactated Ringers 1,000 ML IV SCH (08:44)
[2022-11-21] MEDS ORDERED: Xylocaine-Mpf 2% 5 Ml Vial ONE ×3 (09:31→11:26)
[2022-11-21] MEDS ORDERED: Decadron 4 MG INJ ONE ×2 (09:31→11:26)
[2022-11-21] MEDS ORDERED: DEXMEDETOMIDINE 80 MCG/20ML-NS IV ONE (09:31)
[2022-11-21] MEDS ORDERED: Marcaine 0.5%/Epinephrine 10 ML ONE ×2 (09:31→10:26)
[2022-11-21 09:33] LABS: Slide Review YES
[2022-11-21] MEDS ORDERED: Versed 2 MG/2 ML Injection ONE (09:41)
[2022-11-21] MEDS ORDERED: SUBLIMAZE 100 MCG/2 ML ONE ×2 (09:41→16:54)
[2022-11-21] MEDS ORDERED: Zemuron 100 MG/10 ML ONE (11:26)
[2022-11-21] MEDS ORDERED: TORAdol 30 mg Injection ONE (11:26)
[2022-11-21] MEDS ORDERED: DIPRIVAN 200 MG/20 ML IV ONE (11:26)
[2022-11-21] MEDS ORDERED: Zofran 4 MG/2 ML VIAL ONE (11:26)
[2022-11-21] MEDS ORDERED: Amidate 20 MG/10 ML IV ONE (11:27)
[2022-11-21] MEDS ORDERED: OFIRMEV 100 ML IV ONE (11:55)
[2022-11-21] MEDS ORDERED: Dextrose 5%/Water IV Soln. 50 ML 50 ML IV ONE (13:58)
[2022-11-21] MEDS ORDERED: Dextrose 5%/Water IV Soln. 1000 ML 1,000 ML IV ONE (14:00)
--- NOTE | 2022-11-21 16:12 | XRAY ---
Indication: Right tibio-talocalcaneal arthrodesis. Intraoperative fluoroscopy provided for 17 minute 8 seconds. 46 digital spot images submitted for interpretation ultimately demonstrates partial excision distal fibula and tibia talocalcaneal intramedullary oneil with proximal/lateral transverse screws and calcaneal screw. Correlate with intraoperative findings/report.
[2022-11-21] MEDS ORDERED: Hydromorphone 1 mg/ml Injection ONE (17:13)
[2022-11-21] MEDS ORDERED: MORPHINE SULFATE 10 MG/ML ONE (17:17)
[2022-11-21] MEDS ORDERED: HYDROCODONE-ACETAMIN 10-325 MG ONE ×2 (19:26→23:25)
[2022-11-21] MEDS: HYDROCODONE-ACETAMIN 10-325 MG PO PRN ×2 (19:30→23:34)
[2022-11-21] MEDS: Levofloxacin 500 MG Tablet PO SCH (19:47)
[2022-11-21] MEDS: Lasix 40 MG PO SCH (19:47)
[2022-11-21 20:34] VITALS: O2SAT 94
--- NOTE | 2022-11-21 22:07 | XRAY ---
Seventeen minutes and 8 seconds of fluoroscopy was used in surgery for a right tibio-talocalcaneal arthrodesis.
[2022-11-22] MEDS: HYDROCODONE-ACETAMIN 10-325 MG PO PRN ×2 (05:22→09:52)
[2022-11-22] MEDS: Lactated Ringers 1,000 ML IV SCH (05:22)
[2022-11-22 07:23] VITALS: BP 124/58; PULSE 74
[2022-11-22] MEDS ORDERED: VENTOLIN COMMON CANISTER IH PRN (07:58)
[2022-11-22] MEDS ORDERED: NON-FORMULARY ITEM (Oxycodone Hcl/Acetaminophen [Oxycodone-Acetaminophn 7.5-325] 1 EACH Ta PO PRN (07:58)
[2022-11-22] MEDS: Levofloxacin 500 MG Tablet PO SCH (09:52)
[2022-11-22] MEDS: Lasix 40 MG PO SCH (09:52)
[2022-11-22] MEDS ORDERED: Klor Con PO SCH (10:00)
[2022-11-22] MEDS ORDERED: Protonix 40MG Tablet PO SCH (10:00)
[2022-11-22] MEDS ORDERED: Ecotrin 325 MG PO SCH (10:00)
[2022-11-22] MEDS ORDERED: NON-FORMULARY ITEM (Insulin Lispro 1 UNIT Ml) SQ SCH (10:00)
[2022-11-22] MEDS ORDERED: Dulcolax 10 MG SUPP RC SCH (10:00)
[2022-11-22] MEDS ORDERED: Lantus Insulin SQ SCH (10:00)
[2022-11-22] MEDS ORDERED: BUPRENORPHINE HCL 900 MCG BC SCH (10:00)
[2022-11-22] MEDS ORDERED: NON-FORMULARY ITEM (Omeprazole [Omeprazole] 40 MG Capsule.Dr) PO SCH (10:00)
[2022-11-22] MEDS ORDERED: GABAPENTIN ENACARBIL 600 MG PO SCH ×2 (10:00)
[2022-11-22] MEDS ORDERED: NON-FORMULARY ITEM (Atorvastatin Calcium 20 MG Tab) PO SCH (10:00)
[2022-11-22] MEDS ORDERED: Zestril 20 MG PO SCH (10:00)
--- NOTE | 2022-11-24 12:29 | OP ---
SURGERY DATE/TIME: 11/21/2022 1129 PREOPERATIVE DIAGNOSES: 1) Charcot right ankle. 2) Trimalleolar fracture complication. 3) Uncontrolled diabetes mellitus. 4) Rheumatoid arthritis. 5) Peripheral neuropathy. 6) Gross deformity of right ankle. POSTOPERATIVE DIAGNOSES: 1) Charcot right ankle. 2) Trimalleolar fracture complication. 3) Uncontrolled diabetes mellitus. 4) Rheumatoid arthritis. 5) Peripheral neuropathy. 6) Gross deformity of right ankle. PROCEDURES: 1) Calcaneal autograft. 2) Fibulectomy. 3) Talectomy. 4) Tibiotalar calcaneal arthrodesis. SURGEON: Heriberto Soto DPM. INFORMATION ASSISTANT: None. ANESTHESIA: General. HEMOSTASIS: Ankle tourniquet set to 350 mm of Mercury for 120 total tourniquet minutes. ESTIMATED BLOOD LOSS: 150 cc. MATERIALS: Lillian Roseland ankle nail size 10 x 150 mm with two - 5.0 x 26, 5.0 x 60 and 5.0 x 42 mm with a fresh femoral head allograft with bone marrow aspirate and 5 cc of Bonus Triad, 2-0 Vicryl, five Suturegard, 2-0 Nylon, 3-0 Nylon. INJECTABLES: See anesthesia report for details. INDICATION FOR SURGERY: Amelia is a very pleasant 57-year-old female who is well known to my service for a fracture that occurred in July 2022. At that time the patient suffered a slip and fall and as a result suffered a trimalleolar fracture equivalent. The patient was an extremely poor surgical candidate at that time. She had uncontrolled diabetes which was unmeasurable beyond the level of 14 on hemoglobin A1C. She was extremely edematous to the bilateral lower extremities secondary to her congestive heart failure. She has rheumatoid arthritis on top of this and is on prednisone for treatment. Options were discussed with the patient at that time. I told the patient that she was not a good surgical candidate primarily due to the risk of infection, wound dehiscence and possible need for amputation due to her severely uncontrolled diabetes. As a result the patient was counseled on better control of her diabetes and at this time an A1C was run this morning demonstrating that she is at a level below 6. She has done an excellent job of dealing with the complications as a result as the uncontrolled diabetes unfortunately as expected she did have a Charcot of the ankle and significant worsening of the deformity due to the fact that early on in the process she was weightbearing to the extremity. At this time this has been deemed a limb salvage case. The goal of today's procedure is to establish a plantigrade foot and retain the foot in relationship to her leg while avoiding a below knee amputation in the future. The patient understands all risks, complications and benefits of surgical intervention including but not limited to infection, hematoma, seroma, possibility of delayed wound healing, nonwound healing, possible nonbone healing, possible failure of allograft, possible loss of fixation, possible painful hardware, possible failure of hardware, need for surgical intervention at a later date and possible need for a below knee amputation. As stated before, this is a limb salvage case and this is hopefully definitive but there may be another surgical intervention in regards to this treatment. No guarantees were provided. Plenty of time was allowed for the patient as well as family to ask questions which were provided to their apparent satisfaction. No guarantees were provided as to the outcome. This is once again stated a limb salvage case. It is with that we decided to proceed. DESCRIPTION OF PROCEDURE AND FINDINGS: The patient was brought to the postoperative anesthesia care unit area and provided a popliteal and saphenous block to the best of the ability of the anesthesia provider. The patient did have a significant amount of soft tissue swelling. However this was deemed successful from that standpoint. The patient was brought into the room and placed on the OR table in the supine position. General anesthesia was administered until the patient was sedated. At this time a well-padded thigh tourniquet was applied to the patient's right thigh and the tourniquet was set to 350 mm of Mercury. The right lower extremity was prepped and draped in typical sterile fashion and lowered onto the surgical field. Attention at this time was directed under fluoroscopic guidance to the ankle joint from AP and lateral standpoint. Guidelines were established for surgical planning in particular for major calcaneal autograft. The landmarks for the stage zones of the calcaneus. At this time an Avitus Harvester was introduced after making a linear incision just posterior to the peroneal tendons and being careful not to damage the sural nerve. A 10 blade was utilized to make an incision. Blunt dissection was carried down to the level of the calcaneus. Trocar was then utilized to perforate the lateral aspect of the calcaneal wall and the Avitus Harvester was utilized to obtain approximately 6 cc of calcaneal autograft this was handed off the field along with the bone marrow aspirate that was harvested with the Avitus Harvester. Following this the Esmarch was utilized to exsanguinate the leg and the tourniquet was inflated. A linear incision was made in line with the fibula down to the level of bone encountering a significant amount of retained joint fluid. The joint fluid was cultured on initial inspection due to its abnormal appearance. However this is fairly common in Charcot. A 31 mm blade was then utilized and a sagittal saw to resect the fibula. The fibula was handed off the field after dissecting through the syndesmosis and sent for pathologic assessment. At this time a Pulsavac was utilized to flush the site of the previous deformity insuring any signs of necrotic tissue were removed. At this time assessment of the talus was made. The talus was completely devitalized and only one-third of it remained intact. The decision at that time was made to proceed with the talectomy. The talus was then removed from that standpoint. The medial malleolus had displaced significantly to approximately 15 cm above the tibial plafond. Another incision was made at the medial aspect of the leg and a full thickness flap was elevated identifying the medial malleolus and resecting this from the abnormal location. Both of these areas were flushed with copious amounts of sterile saline. Following this acetabular reamers were then utilized to contour the distal tibia as well as the calcaneus in preparation for the femoral head allograft. At this time copious amounts of sterile saline were utilized to the surgical site once more insuring exposed subchondral plate was present. The graft harvested from the calcaneus as well as the bone marrow aspirate was utilized to coat the femoral head and this was placed within the deficit. Some planning of the femoral head was performed in order to get better contour and fit within the arthrodesis site. Drill holes were made utilizing a 2 mm drill into all surfaces that were expected to take fusion. From that standpoint the position was assessed and pinned utilizing a K-wire in the footprint of where the Roseland ankle nail was going to be introduced. A drill was utilized to pass through the calcaneus femoral head allograft and into the distal aspect of the tibia from 8 we increased to an 11 size reamer and a 10 mm nail on 150 mm length based on the length of where its shadow was experienced was selected for this patient and this was introduced and following textile colorist formulator specifications a 5 x 26 mm and additional 5 x 26 mm was utilized to lock the nail proximally. Following this a 5 x 42 mm was introduced into the talus getting minimal compression through this site so as not to resorb the graft and then a 50 x 60 was utilized for the calcaneal posterior to anterior screw locking the nail into place. After the last two steps, compression was performed through the nail at the talus to tibia and then the calcaneus to talus sites once again to prevent resorption of the graft and a small amount of compression was advanced less than 2 to 3 mm each. Following this final shots on fluoro were obtained demonstrating adequate position in the calcaneal axial lateral and AP positions. Copious amounts of sterile saline were utilized to flush all surgical sites. Due to the patient's significant edema, it was determined that Suturegards were necessary to help relieve tension off of the subcutaneous skin edges this was performed at two sites on each side of the leg for a total four sets of Suturegards, vertical mattress-type sutures were performed in order to relieve the tension. 2-0 Vicryl was then utilized to coapt the subcutaneous skin edges in a simple interrupted buried-type fashion and then 3-0 Nylon was utilized in alternating horizontal mattress and simple interrupted-type fashion. Once the incisions were coapted, dressing consisting of Betadine, Adaptic, 4x4, Kerlix and a well-padded posterior splint with Sugar-Tong was applied to the patient's right lower extremity with the foot orthogonal relative to longitudinal axis of the leg. The patient was then reversed from anesthesia and returned to the postoperative anesthesia care unit with vital signs stable and vascular status intact. The patient handled the anesthesia as well as the procedure without significant complication. Postoperative orders as indicated in the patient's discharge chart.
[2022-11-27] MEDS ORDERED: VITAMIN D2 PO SCH (10:00)
== END 2022-11-22 11:45 ==
LOC: SDC 06:53 → MED SURG 17:50 → UNDOADMOB 17:50 → SDC 11-22 11:45
PROVIDERS: ATTEND Podiatrist Foot & Ankle Surgery
DX: E11.610 Type 2 diabetes mellitus with diabetic neuropathic arthropathy (principal); S82.851A Displaced trimalleolar fracture of right lower leg, initial encounter for closed fracture; E11.65 Type 2 diabetes mellitus with hyperglycemia; M06.9 Rheumatoid arthritis, unspecified; G62.9 Polyneuropathy, unspecified; M21.961 Unspecified acquired deformity of right lower leg; I10 Essential (primary) hypertension; Z20.828 Contact with and (suspected) exposure to other viral communicable diseases
CPT/HCPCS: 27641; 27870; 28130; 28420; 36415; 71045; 73630; 76000; 76937; 80053; 82947; 83036; 83880; 85027; 85610; 85730; 93005; C1713; C1762; J0690; J1100; J1170; J1885; J2250; J2270; J2405; J2704; J3010; A9270-GY

== ENCOUNTER 2022-12-05 07:20 | Observation (INO) | payer MEDICAID ==
[~2022-12-05 07:20] MED LIST: DIPRIVAN 200 MG/20 ML IV ONE; Decadron 4 MG INJ ONE; SUBLIMAZE 100 MCG/2 ML ONE; Xylocaine-Mpf 2% 5 Ml Vial ONE; Zofran 4 MG/2 ML VIAL ONE
[2022-12-05] MEDS ORDERED: Dextrose 5%-Lr IV Solution 1000 ML 1,000 ML IV ONE (07:21)
[2022-12-05] MEDS ORDERED: Xylocaine 1% Vial 30 ML PF IJ ONE (07:22)
[2022-12-05] MEDS ORDERED: Marcaine Mpf 0.5% Vial 30 Ml ONE ×2 (07:22→10:08)
[2022-12-05] MEDS ORDERED: Lactated Ringers 1,000 ML IV SCH (08:00)
[2022-12-05 08:26] LABS: Hematocrit 24.9 % (35-47); Mean Cell Volume 88.3 fL (78-100); Mean Corpuscular Hemoglobin 24.8 pg (26-32); Mean Corpuscular Hgb Concent. 28.1 g/dL (32-36); Mean Platelet Volume 8.8 fL (7.5-11.0); Platelet Count 139 x10^3/uL (150-450); Red Blood Count 2.82 x10^6/uL (4.1-5.4); Red Cell Distribution Width 18.4 % (11.5-14.0); White Blood Count 4.9 x10^3/uL (4.0-10.5)
[2022-12-05 08:40] LABS: ALKALINE PHOSPHATASE 135 U/L (38-126); ANION GAP 9.1 MEQ/L (5-15); BLOOD UREA NITROGEN 19 mg/dL (7-17); CHLORIDE 100 mmol/L (98-107); Calcium 8.4 mg/dL (8.4-10.2); Carbon Dioxide 34 mmol/L (22-30); Creatinine 1 0.89 mg/dL (0.52-1.04); EST GLOMERULAR FILTRATION RATE > 60.0 ML/MIN; Glucose 101 mg/dL (74-106); Potassium 4.1 mmol/L (3.5-5.1); SGOT/AST 40 U/L (14-36); SGPT/ALT 18 U/L (0-35); SODIUM 139 mmol/L (137-145); Total Protein 7.9 g/dL (6.3-8.2)
[2022-12-05 08:42] LABS: INR 1.05 (0.8-3.0); PROTIME 11.4 SECONDS (9.4-12.5); PTT 30.9 SECONDS (25.1-36.5)
[2022-12-05] MEDS ORDERED: KEFZOL 1 GM** 3 G in Sodium Chloride 0.9% 50 ML 50 ML IV SCH (09:00)
[2022-12-05 09:01] LABS: Hematocrit 23.8 % (35-47); Mean Cell Volume 87.2 fL (78-100); Mean Corpuscular Hemoglobin 24.9 pg (26-32); Mean Corpuscular Hgb Concent. 28.6 g/dL (32-36); Mean Platelet Volume 8.9 fL (7.5-11.0); Platelet Count 140 x10^3/uL (150-450); Red Blood Count 2.73 x10^6/uL (4.1-5.4); Red Cell Distribution Width 18.6 % (11.5-14.0); White Blood Count 4.7 x10^3/uL (4.0-10.5)
[2022-12-05 09:03] LABS: Hemoglobin 6.8 g/dL (12.0-16.0)
[2022-12-05] MEDS ORDERED: Reglan 10 MG/2 ML IV ONE (09:22)
[2022-12-05] MEDS ORDERED: Pepcid 20 MG VIAL IV ONE ×2 (09:22→09:26)
[2022-12-05] MEDS ORDERED: Reglan 10 MG/2 ML ONE (09:26)
[2022-12-05] MEDS ORDERED: Sodium Chloride 0.9% 1000 ML 1,000 ML ONE (09:26)
[2022-12-05] MEDS ORDERED: Sodium Chloride 0.9% 1000 ML 1,000 ML IV SCH (09:30)
[2022-12-05 09:49] LABS: Slide Review YES
[2022-12-05] MEDS ORDERED: Versed 2 MG/2 ML Injection ONE (10:05)
[2022-12-05] MEDS ORDERED: EXPAREL 133 MG/10 ML VIAL IJ ONE (10:06)
[2022-12-05] MEDS ORDERED: Pre-Attached Lta Kit TP ONE (10:08)
[2022-12-05] MEDS ORDERED: OFIRMEV 100 ML IV ONE (10:08)
[2022-12-05] MEDS ORDERED: MARCAINE 0.25% PF/ EPI 1:200,000 ONE (10:08)
[2022-12-05 10:14] LABS: ABO TYPING A; Antibody Screen NEGATIVE (NEGATIVE); RH TYPING POSITIVE
[2022-12-05 10:16] LABS: CROSS MATCH (PRBC) COMPATIBLE (COMPATIBLE)
[2022-12-05] MEDS ORDERED: DIPRIVAN 200 MG/20 ML IV ONE (11:49)
[2022-12-05] MEDS ORDERED: Quelicin Fliptop 200 MG/10 ML ONE (11:50)
[2022-12-05] MEDS ORDERED: Ephedrine Sulfate 50 MG/ML ONE (12:23)
[2022-12-05] MEDS ORDERED: Lasix 20 MG/2 ML ONE (14:21)
--- NOTE | 2022-12-05 15:38 | XRAY ---
Indication: Right foot hardware removal. Intraoperative fluoroscopy provided for 3 minutes 32 seconds. 19 digital spot images submitted for interpretation demonstrates removal talocalcaneal and tibial talocalcaneal hardware. New incompletely visualized external fixation device. Correlate with intraoperative findings/report.
[2022-12-05] MEDS ORDERED: TYLENOL 325 MG PO PRN (17:18)
--- NOTE | 2022-12-05 17:35 | PCM.HP ---
History of Present Illness - Chief Complaint Chief Complaint: Anemia Date: 12/05/22 History of Present Illness: 57-year-old woman with a history of type 2 diabetes, hypertension, obesity, GERD, neuropathy, who has been admitted for anemia. Patient has a history of prior right foot fracture status post repair with a nail. However, patient has had difficulty keeping her weight off of her foot, leading to wound dehiscence. Was brought in today for outpatient surgery for removal of nail and placement of an external fixator. However, on arrival, noted to have a hemoglobin of 7. 2 weeks ago, her hemoglobin was 9.2. Patient denies any history of anemia. Denies hematemesis, hematochezia, or melena. Has a history of hemorrhoids, but has not had any recent bleeding. States has been eating well, with no history of nutritional deficiencies. Denies dyspnea, chest pain, lightheadedness, or change in exertion, although she has been very immobile because of her nonweightbearing status. She currently resides in a custodial. She has never had a colonoscopy. She has history of prior leg DVT, but has been off blood thinners for many years. - Review of Systems Constitutional: No Fever, No Chills, No Fatigue, No Lethargy Respiratory: No Short Of Breath Cardiac: No Chest Pain Abdominal/Gastrointestinal: No Abdominal Pain, No Hematemesis, No Hematochezia, No Melena Genitourinary Symptoms: No Hematuria Musculoskeletal: Back Pain All Other Systems: Reviewed and Negative Medications & Allergies Home Medications: Home Medication List Lisinopril 20 mg [Zestril 20 MG] 20 mg PO BID 08/25/12 [History Confirmed 12/05/22] Furosemide [Lasix] 40 mg PO DAILY 10/06/13 [History Confirmed 12/05/22] Atorvastatin Calcium [Lipitor 20MG Tablet] 20 mg PO DAILY 06/11/17 [History Confirmed 12/05/22] Albuterol Sulfate [Albuterol Sulfate Hfa] 1 puff IH Q4HPRN PRN 07/04/22 [History Confirmed 12/05/22] Ergocalciferol (Vitamin D2) [Vitamin D2] 1 cap PO WEEKLY 09/20/22 [History Confirmed 12/05/22] Insulin Glargine [Lantus Insulin] 80 unit SQ HS 09/20/22 [History Confirmed 12/05/22] Buprenorphine HCl [Belbuca] 900 mcg BC BID 11/12/22 [History Confirmed 12/05/22] Gabapentin Enacarbil [Horizant] 600 mg PO BID 11/12/22 [History Confirmed 12/21] Insulin Lispro [Humalog] 0 unit SQ DAILY 11/12/22 [History Confirmed 12/05/22] Aspirin EC 325 mg [Ecotrin 325 MG] 325 mg PO DAILY 12/05/22 [History Confirmed 12/05/22] Ciprofloxacin [Cipro 500 MG] 500 mg PO BID 12/05/22 [History Confirmed 12/05/22] Docusate Sodium 100 mg [Docusate Sodium 100 MG] 100 mg PO BID 12/05/22 [History Confirmed 12/05/22] Hydrocodone/Acetaminophen [Hydrocodone-Acetamin 10-325 mg] 1 tablet PO Q4H PRN PRN 12/05/22 [History Confirmed 12/05/22] PANTOPRAZOLE 40 mg Tablet [Protonix 40MG Tablet] 40 mg PO BID 12/05/22 [History Confirmed 12/05/22] Potassium Chloride Tab* [Klor Con] 10 meq PO DAILY 12/05/22 [History Confirmed 12/05/22] Allergies/Adverse Reactions: Allergies Allergy/AdvReac Type Severity Reaction Status Date / Time adhesive tape AdvReac Intermediate Verified 11/28/22 10:38 - Past Medical History Past Medical History: Yes Neurological History: No Pertinent History ENT History: No Pertinent History Cardiac History: Deep Vein Thrombosis (Has not been on blood thinners for many years.), High Cholesterol, Hypertension Respiratory History: CHF Endocrine Medical History: Diabetes Type II Musculoskelatal History: Rheumatoid Arthritis GI Medical History: GERD, Other History: No Pertinent History Pyscho-Social History: No Pertinent History Reproductive Disorders: No Pertinent History Comment: BURSITIS TO BOTH SHOULDERS, NEUROPATHY THROUGHOUT HER BODY. Charcot of the right foot/ankle. thrombocytopenia. gastroparesis - Female History Hx Last Menstrual Period: 20 years Are you now?: No (N) - Past Surgical History Past Surgical History: Yes Neuro Surgical History: No Pertinent History Cardiac History: No Pertinent History Respiratory Surgery: No Pertinent History GI Surgical History: Other Genitourinary Surgical Hx: No Pertinent History Musculskeletal Surgical Hx: No Pertinent History Female Surgical History: Tubal Ligation, Other Other Surgical History: d & c, (rectal surgery x3, cyst removed from rectum). cyst removed from pancreas. right foot surgery - Social History Smoking Status: Never smoker Exposure to second hand smoke: No Alcohol: None Drug Use: none Significant Family History: no pertinent family hx - Physical Exam Vital Signs: Vital Signs - 24 hr Temp Pulse Resp BP Pulse Ox 12/05/22 17:16 98 12/05/22 10:10 98.5 F 85 18 133/60 99 12/05/22 08:57 98.5 F 85 18 133/60 99 12/05/22 08:43 98.5 F 85 18 133/60 99 Additional Findings: GENERAL: Sitting up in bed in no acute distress NEURO: Alert, oriented x3, normal affect CV: Regular rate and rhythm, no murmurs, no edema PULM: Clear to auscultation bilaterally, no work of breathing ABD: Obese, soft, nontender, nondistended MSK: Right foot in bandage. Results - Labs Lab/Micro Results: Lab Results-Last 24 Hours 12/05/22 12/05/22 12/05/22 Range/Units 08:08 08:20 08:20 WBC 4.9 (4.0-10.5) x10^3/uL RBC 2.82 L (4.1-5.4) x10^6/uL Hgb 7.0 L* (12.0-16.0) g/dL Hct 24.9 L (35-47) % MCV 88.3 (78-100) fL MCH 24.8 L (26-32) pg MCHC 28.1 L (32-36) g/dL RDW 18.4 H (11.5-14.0) % Plt Count 139 L (150-450) x10^3/uL MPV 8.8 (7.5-11.0) fL PT (9.4-12.5) SECONDS INR (0.8-3.0) APTT (25.1-36.5) SECONDS Sodium 139 (137-145) mmol/L Potassium 4.1 (3.5-5.1) mmol/L Chloride 100 (98-107) mmol/L Carbon Dioxide 34 H (22-30) mmol/L Anion Gap 9.1 (5-15) MEQ/L BUN 19 H (7-17) mg/dL Creatinine 0.89 (0.52-1.04) mg/dL Estimated GFR > 60.0 ML/MIN Glucose 101 (74-106) mg/dL POC Glucometer 88 (74 to 106) mg/dL Calcium 8.4 (8.4-10.2) mg/dL Total Bilirubin 0.60 (0.2-1.3) mg/dL AST 40 H (14-36) U/L ALT 18 (0-35) U/L Alkaline Phosphatase 135 H (38-126) U/L NT-Pro-B Natriuret Pep (<300) pg/mL Serum Total Protein 7.9 (6.3-8.2) g/dL Albumin 3.0 L (3.5-5.0) g/dL Slides for Path Review ABO Group Rh Factor Antibody Screen (NEGATIVE) Crossmatch (COMPATIBLE) 12/05/22 12/05/22 12/05/22 Range/Units 08:20 08:20 08:51 WBC 4.7 (4.0-10.5) x10^3/uL RBC 2.73 L (4.1-5.4) x10^6/uL Hgb 6.8 L* (12.0-16.0) g/dL Hct 23.8 L (35-47) % MCV 87.2 (78-100) fL MCH 24.9 L (26-32) pg MCHC 28.6 L (32-36) g/dL RDW 18.6 H (11.5-14.0) % Plt Count 140 L (150-450) x10^3/uL MPV 8.9 (7.5-11.0) fL PT 11.4 (9.4-12.5) SECONDS INR 1.05 (0.8-3.0) APTT 30.9 (25.1-36.5) SECONDS Sodium (137-145) mmol/L Potassium (3.5-5.1) mmol/L Chloride (98-107) mmol/L Carbon Dioxide (22-30) mmol/L Anion Gap (5-15) MEQ/L BUN (7-17) mg/dL Creatinine (0.52-1.04) mg/dL Estimated GFR ML/MIN Glucose (74-106) mg/dL POC Glucometer (74 to 106) mg/dL Calcium (8.4-10.2) mg/dL Total Bilirubin (0.2-1.3) mg/dL AST (14-36) U/L ALT (0-35) U/L Alkaline Phosphatase (38-126) U/L NT-Pro-B Natriuret Pep 213 (<300) pg/mL Serum Total Protein (6.3-8.2) g/dL Albumin (3.5-5.0) g/dL Slides for Path Review YES ABO Group Rh Factor Antibody Screen (NEGATIVE) Crossmatch (COMPATIBLE) 12/05/22 12/05/22 12/05/22 Range/Units 08:51 08:51 09:06 WBC (4.0-10.5) x10^3/uL RBC (4.1-5.4) x10^6/uL Hgb (12.0-16.0) g/dL Hct (35-47) % MCV (78-100) fL MCH (26-32) pg MCHC (32-36) g/dL RDW (11.5-14.0) % Plt Count (150-450) x10^3/uL MPV (7.5-11.0) fL PT (9.4-12.5) SECONDS INR (0.8-3.0) APTT (25.1-36.5) SECONDS Sodium (137-145) mmol/L Potassium (3.5-5.1) mmol/L Chloride (98-107) mmol/L Carbon Dioxide (22-30) mmol/L Anion Gap (5-15) MEQ/L BUN (7-17) mg/dL Creatinine (0.52-1.04) mg/dL Estimated GFR ML/MIN Glucose (74-106) mg/dL POC Glucometer 92 (74 to 106) mg/dL Calcium (8.4-10.2) mg/dL Total Bilirubin (0.2-1.3) mg/dL AST (14-36) U/L ALT (0-35) U/L Alkaline Phosphatase (38-126) U/L NT-Pro-B Natriuret Pep (<300) pg/mL Serum Total Protein (6.3-8.2) g/dL Albumin (3.5-5.0) g/dL Slides for Path Review ABO Group A Rh Factor POSITIVE Antibody Screen NEGATIVE (NEGATIVE) Crossmatch COMPATIBLE COMPATIBLE (COMPATIBLE) 12/05/22 12/05/22 12/05/22 Range/Units 12:03 12:53 13:48 WBC (4.0-10.5) x10^3/uL RBC (4.1-5.4) x10^6/uL Hgb (12.0-16.0) g/dL Hct (35-47) % MCV (78-100) fL MCH (26-32) pg MCHC (32-36) g/dL RDW (11.5-14.0) % Plt Count (150-450) x10^3/uL MPV (7.5-11.0) fL PT (9.4-12.5) SECONDS INR (0.8-3.0) APTT (25.1-36.5) SECONDS Sodium (137-145) mmol/L Potassium (3.5-5.1) mmol/L Chloride (98-107) mmol/L Carbon Dioxide (22-30) mmol/L Anion Gap (5-15) MEQ/L BUN (7-17) mg/dL Creatinine (0.52-1.04) mg/dL Estimated GFR ML/MIN Glucose (74-106) mg/dL POC Glucometer 79 99 84 (74 to 106) mg/dL Calcium (8.4-10.2) mg/dL Total Bilirubin (0.2-1.3) mg/dL AST (14-36) U/L ALT (0-35) U/L Alkaline Phosphatase (38-126) U/L NT-Pro-B Natriuret Pep (<300) pg/mL Serum Total Protein (6.3-8.2) g/dL Albumin (3.5-5.0) g/dL Slides for Path Review ABO Group Rh Factor Antibody Screen (NEGATIVE) Crossmatch (COMPATIBLE) 12/05/22 12/05/22 Range/Units 14:50 16:04 WBC (4.0-10.5) x10^3/uL RBC (4.1-5.4) x10^6/uL Hgb (12.0-16.0) g/dL Hct (35-47) % MCV (78-100) fL MCH (26-32) pg MCHC (32-36) g/dL RDW (11.5-14.0) % Plt Count (150-450) x10^3/uL MPV (7.5-11.0) fL PT (9.4-12.5) SECONDS INR (0.8-3.0) APTT (25.1-36.5) SECONDS Sodium (137-145) mmol/L Potassium (3.5-5.1) mmol/L Chloride (98-107) mmol/L Carbon Dioxide (22-30) mmol/L Anion Gap (5-15) MEQ/L BUN (7-17) mg/dL Creatinine (0.52-1.04) mg/dL Estimated GFR ML/MIN Glucose (74-106) mg/dL POC Glucometer 114 H 89 (74 to 106) mg/dL Calcium (8.4-10.2) mg/dL Total Bilirubin (0.2-1.3) mg/dL AST (14-36) U/L ALT (0-35) U/L Alkaline Phosphatase (38-126) U/L NT-Pro-B Natriuret Pep (<300) pg/mL Serum Total Protein (6.3-8.2) g/dL Albumin (3.5-5.0) g/dL Slides for Path Review ABO Group Rh Factor Antibody Screen (NEGATIVE) Crossmatch (COMPATIBLE) - Radiology Impressions Radiology Exams & Impressions: Radiology Procedures Category Date Time Status FLUOROSCOPY UP TO 1 HR Routine Exams 12/05/22 05:28 Taken FOOT (MINIMUM 3 VIEWS) Routine Exams 12/05/22 05:28 Completed - Other Procedures and Tests Respiratory Therapy 12/05/22 17:00 Incentive Spirometry Q2H 12/05/22 17:16 Oxygen NASAL CANNULA 2 lpm Assessment/Plan (1) Anemia Current Visit: Yes Status: Acute Assessment & Plan: 57-year-old woman with a history of morbid obesity, type 2 diabetes, hypertens ion, neuropathy, and prior DVT, who was initially admitted for elective repair of wound needs of the right foot, found to have severe anemia. ## Normocytic anemia asymptomatic. No history of anemia. Has never had EGD or colonoscopy. Already given 2 units of PRBCs preoperatively. Check CBC now to see response to transfusion Check ferritin, iron/TIBC, B12, and folate levels We will observe overnight to ensure stability of hemoglobin levels If hemoglobin remains stable and responds appropriately to transfusion, will likely discharge home for follow-up with PCP and referral to GI for EGD and colonoscopy. ## Right foot fracture with wound dehiscence status post removal of nail and placement of external fixator today by Dr. Soto. PRN Renovo and morphine for pain control Nonweightbearing to the right foot ## Type 2 diabetes Resume home Lantus 80 QHS Placed on high-dose sliding scale insulin ## Hypertension blood pressure currently controlled. Resume home lisinopril 20 BID ## Diabetic peripheral neuropathy Resume home gabapentin 600 BID ## Chronic diastolic heart failure Continue home Lasix 40 daily, with potassium chloride 10 mEq daily ## GERD Resume home Protonix 40 BID CODE STATUS: Full code Diet: Diabetic Prophylaxis: Short stay, and avoiding anticoagulation given anemia Code(s): D64.9 - ANEMIA, UNSPECIFIED Telemedicine Encounter - Telemedicine Encounter Telemedicine Encounter: The entirety of this encounter was performed via Telemedicine"
[2022-12-05] MEDS ORDERED: PROVENTIL 2.5 MG/3 ML NEB IH PRN (17:40)
[2022-12-05] MEDS: MORPHINE SULFATE 4 MG INJ IV PRN (17:52)
[2022-12-05 18:09] LABS: Hematocrit 29.4 % (35-47); Hemoglobin 8.5 g/dL (12.0-16.0); Mean Cell Volume 85.7 fL (78-100); Mean Corpuscular Hemoglobin 24.8 pg (26-32); Mean Corpuscular Hgb Concent. 28.9 g/dL (32-36); Mean Platelet Volume 9.2 fL (7.5-11.0); Platelet Count 137 x10^3/uL (150-450); Red Blood Count 3.43 x10^6/uL (4.1-5.4); Red Cell Distribution Width 17.7 % (11.5-14.0); White Blood Count 5.5 x10^3/uL (4.0-10.5)
[2022-12-05 20:31] LABS: Slide Review YES
[2022-12-05] MEDS: HUMALOG SQ PRN (21:07)
[2022-12-05] MEDS: HYDROCODONE-ACETAMIN 10-325 MG PO PRN (21:09)
[2022-12-05] MEDS: Docusate Sodium 100 MG PO SCH (21:10)
[2022-12-05] MEDS: NEURONTIN PO SCH (21:10)
[2022-12-05] MEDS: Protonix 40MG Tablet PO SCH (21:10)
[2022-12-05 21:11] LABS: Iron 38 ug/dL (37-170); Iron Saturation 11 % (20-39); TIBC 341 ug/dL (265-462)
[2022-12-05] MEDS: Zestril 20 MG PO SCH (21:14)
[2022-12-05] MEDS ORDERED: Lantus Insulin SQ SCH (22:00)
[2022-12-05 22:09] LABS: Ferritin 41.6 ng/mL (11.1-264); Folate (Folic Acid) 10.6 ng/mL (2.76 - >20)
[2022-12-06] MEDS: MORPHINE SULFATE 4 MG INJ IV PRN ×3 (01:55→16:16)
[2022-12-06] MEDS: HYDROCODONE-ACETAMIN 10-325 MG PO PRN ×2 (04:53→08:45)
[2022-12-06 05:13] LABS: Hematocrit 25.8 % (35-47); Hemoglobin 7.8 g/dL (12.0-16.0); Mean Cell Volume 83.5 fL (78-100); Mean Corpuscular Hemoglobin 25.2 pg (26-32); Mean Corpuscular Hgb Concent. 30.2 g/dL (32-36); Mean Platelet Volume 9.5 fL (7.5-11.0); Platelet Count 128 x10^3/uL (150-450); Red Blood Count 3.09 x10^6/uL (4.1-5.4); Red Cell Distribution Width 18.3 % (11.5-14.0); White Blood Count 5.3 x10^3/uL (4.0-10.5)
[2022-12-06 05:33] LABS: ANION GAP 9.2 MEQ/L (5-15); BLOOD UREA NITROGEN 21 mg/dL (7-17); CHLORIDE 101 mmol/L (98-107); Calcium 7.7 mg/dL (8.4-10.2); Carbon Dioxide 31 mmol/L (22-30); Creatinine 1 0.79 mg/dL (0.52-1.04); EST GLOMERULAR FILTRATION RATE > 60.0 ML/MIN; Glucose 210 mg/dL (74-106); Potassium 4.6 mmol/L (3.5-5.1); SODIUM 137 mmol/L (137-145)
[2022-12-06] MEDS: HUMALOG SQ PRN ×3 (05:38→16:28)
[2022-12-06] MEDS ORDERED: VENTOLIN COMMON CANISTER IH PRN (07:44)
[2022-12-06] MEDS ORDERED: VITAMIN D2 PO PRN (07:45)
[2022-12-06] MEDS ORDERED: MEDICATION INTERVENTION MC SCH (08:00)
[2022-12-06] MEDS: Cipro 500 MG PO SCH ×2 (08:25→16:10)
[2022-12-06] MEDS: Docusate Sodium 100 MG PO SCH (09:15)
[2022-12-06] MEDS: NEURONTIN PO SCH (09:16)
[2022-12-06] MEDS: Protonix 40MG Tablet PO SCH (09:16)
[2022-12-06] MEDS: Zestril 20 MG PO SCH (09:16)
[2022-12-06] MEDS: CLEOCIN 150 MG CAPSULE PO SCH ×2 (09:16→16:10)
[2022-12-06] MEDS ORDERED: Tums EX 750 MG PO PRN (09:55)
[2022-12-06] MEDS ORDERED: Lasix 40 MG PO SCH (10:00)
[2022-12-06] MEDS ORDERED: NON-FORMULARY ITEM (Atorvastatin Calcium 20 MG Tab) PO SCH (10:00)
[2022-12-06] MEDS ORDERED: Ecotrin 325 MG PO SCH (10:00)
[2022-12-06] MEDS ORDERED: Klor Con PO SCH (10:00)
[2022-12-06] MEDS ORDERED: BUPRENORPHINE HCL 900 MCG BC SCH (10:00)
[2022-12-06] MEDS ORDERED: ZOCOR 20MG PO SCH (10:00)
[2022-12-06 16:26] VITALS: BP 121/56; PULSE 79; O2SAT 96
--- NOTE | 2022-12-08 09:44 | OP ---
SURGERY DATE/TIME: 12/05/2022 1200 PREOPERATIVE DIAGNOSES: 1) Diabetic foot ulcer. 2) Uncontrolled diabetes. 3) Peripheral neuropathy. 4) Multiple episodes of noncompliance. 5) Osteomyelitis. 6) Calcaneal fracture. 7) Cellulitis. 8) Retained hardware. 9) Severe venous insufficiency. POSTOPERATIVE DIAGNOSES: 1) Diabetic foot ulcer. 2) Uncontrolled diabetes. 3) Peripheral neuropathy. 4) Multiple episodes of noncompliance. 5) Osteomyelitis. 6) Calcaneal fracture. 7) Cellulitis. 8) Retained hardware. 9) Severe venous insufficiency. PROCEDURES: 1) Incision and drainage with bone debridement of foot. 2) Incision and drainage with bone debridement of ankle. 3) Application of antibiotic spacer/Jerry. 4) Bone biopsy of fibula, talus and calcaneus right. 5) Application of multiplanar external fixator, right. 6) Removal of Allograft. SURGEON: Heriberto Soto DPM. [employer]PATCH[employer] DEPARTMENT: None. ANESTHESIA: General plus a preoperative popliteal and saphenous block. See anesthesia report for details. HEMOSTASIS: Thigh tourniquet set to 350 mm of Mercury for 120 total tourniquet minutes. ESTIMATED BLOOD LOSS: Approximately 150 cc. MATERIALS: Avitus bone harvesting, polymethyl methacrylate (PMMA) antibiotic spacer infused with 1 gm vancomycin, 3-0 Nylon, 2-0 Nylon, three Suturegard, 2-0 Prolene, surgical tha. INJECTABLES: See anesthesia report for details. INDICATION FOR SURGERY: Amelia is a very well-known patient of mine who suffered an ankle fracture back in July 2022 which at the time had a significant amount of deformity. However, the patient was an extreme diabetic with rheumatoid arthritis and extreme venous insufficiency. I was concerned in regards to the patient's A1C and uncontrolled diabetes that options were very limited at that time. The patient was informed that the deformity would benefit from correction. However at that time, she was at severe risk for wound complication and possibly leading to amputation that she would benefit from bringing her A1C down and optimizing her skin quality prior to surgical intervention. Over the course of several months, the patient got her A1C down essentially to the level of nondiabetic and her venous insufficiency was significantly better controlled. At this time, the patient underwent a procedure with an intramedullary nail retrograded for a tibiotalocalcaneal arthrodesis to the right lower extremity. In the previous week, the patient stepped on the nail in order to transfer to the bedside commode instantly feeling a dislocation and instability of the calcaneus. On presentation to my clinic x-rays were taken demonstrating displacement of the calcaneus relative to the nail and the graft. The graft, nail and the tibia relatively intact however fractured through the calcaneus. The patient was given options and potential percentages of success were discussed. We discussed this is continuing to be a more difficult limb salvage case. However, the patient is adamant and she would like to proceed with an attempt at limb salvage. With that we decided to proceed with removal of the nail, placement of an antibiotic spacer and temporary fixation with a Jerry to allow for the soft tissue to calm down during this period of time. Biopsies were also taken in order to access for any bone infection as a result of the poor quality of bone. She understands all risks, complications and benefits of surgical intervention including but not limited to infection, hematoma, seroma, possibility of delayed wound healing, nonwound healing, possibility of failure of surgical intervention, definite need for return to OR at minimum, removal of the external fixator, possible loss of limb and possible loss of life as a result. The patient understands all risks. Plenty of time was allowed for the patient and her family to ask questions which were answered to their apparent satisfaction. Once again, no guarantees were provided as to the outcome of surgical intervention. It is with that we decided to proceed. DESCRIPTION OF PROCEDURE AND FINDINGS: The patient was brought into the postoperative anesthesia care unit area and provided a popliteal and saphenous block. Following this, the patient was brought into the operating room and transferred to the OR table in supine position. General anesthesia was administered until the patient was sedated. A well-padded thigh tourniquet was applied to the patient's right thigh and the right lower extremity was prepped and draped in typical sterile fashion. At this time an Esmarch was utilized to exsanguinate the leg and the tourniquet was inflated to 350 mm of Mercury. Under fluoroscopic guidance the distal pin of the intramedullary nail was identified. The foot was rotated into valgus position due to its instability and a lateral incision was utilized to remove this pin. Following this the calcaneal screw was then removed. The lateral Allograft screw was then removed and the nail compression pin was then removed once again. The two tibial screws were then removed and the nail was removed utilizing a slap hammer. Following this an Avitus harvester was utilized to debride the intramedullary cavity of the tibia and the calcaneus. Copious amounts of sterile saline were utilized with Pulsavac along with 1,000 ml of Bactisure. Following this bone biopsies were taken of the distal tibia, the proximal neck and head of the talus as well as the calcaneal tuber to check for any residual osteomyelitis. At this time they were handed off the field and sent for pathologic assessment. Soft tissue cultures were taken from the wound to check for intramedullary osteomyelitis. Following this, an intramedullary oneil was conformed out of PMMA infused with vancomycin and a spacer was made in the shape of the Allograft to circumferentially surround the nail. From this standpoint, this was checked under multiple views and deemed to be in an adequate position. At this time a multiplanar external fixator was fixed making sure to follow safe zones for not disturbing the neurovascular bundles and staying within the fibula and the tibia with respect to these safe zones of the mid and distal tibia as well as the calcaneus. Billings wires were thrown on either side to gain adequate tension under 120 psi at the tibia, 90 at the calcaneus and 40 at the foot. Following this, the incisions were irrigated and closed utilizing a combination of trauma sutures and tha. A dressing consisting of iodine, Adaptic, iodine soaked Xeroform for pin sites, Kerlix and SUKHJINDER were applied to the right lower extremity applying moderate compression in order to counteract the venous insufficiency. The patient was then reversed from anesthesia and returned to the postoperative anesthesia care unit with vital signs stable and vascular status intact. The patient handled the anesthesia as well as the procedure without significant complication. Postoperative orders as indicated in the patient's discharge chart.
--- NOTE | 2022-12-08 20:13 | XRAY ---
Three minutes and 32 seconds of fluoroscopy was used in surgery for a right foot hardware removal.
== END 2022-12-06 16:49 ==
LOC: SDC 07:20 → MED SURG 16:54
PROVIDERS: ADMIT Internal Medicine; ATTEND Internal Medicine
DX: D64.9 Anemia, unspecified (principal); E66.9 Obesity, unspecified; E11.9 Type 2 diabetes mellitus without complications; I11.0 Hypertensive heart disease with heart failure; I50.9 Heart failure, unspecified; E11.40 Type 2 diabetes mellitus with diabetic neuropathy, unspecified; K21.9 Gastro-esophageal reflux disease without esophagitis; E11.621 Type 2 diabetes mellitus with foot ulcer; E11.65 Type 2 diabetes mellitus with hyperglycemia; M86.9 Osteomyelitis, unspecified; S92.001A Unspecified fracture of right calcaneus, initial encounter for closed fracture; L03.115 Cellulitis of right lower limb; T84.84XA Pain due to internal orthopedic prosthetic devices, implants and grafts, initial encounter; I87.2 Venous insufficiency (chronic) (peripheral); Z91.148 Patient's other noncompliance with medication regimen for other reason; Z79.899 Other long term (current) drug therapy; Z20.828 Contact with and (suspected) exposure to other viral communicable diseases; Z86.718 Personal history of other venous thrombosis and embolism
CPT/HCPCS: 11981; 20240; 20245; 20680; 20692; 27607; 28005; 36415; 36430; 73630; 76000; 80048; 80053; 82607; 82728; 82746; 82947; 83540; 83550; 83880; 84134; 85027; 85610; 85730; 86850; 86900; 86901; 86922; 87070; 87075; 87086; 94760; G0378; P9016; Q3014; 76937; A6260; C1713; C1762; J0330; J0690; J1100; J1817; J1940; J2001; J2250; J2270; J2405; J2704; J3010; A9270-GY

== ENCOUNTER 2023-01-20 10:09 | Day surgery (SDC) | payer MEDICAID ==
[2023-01-20] MEDS ORDERED: Merrem 1 GM in Sodium Chloride 100ML MINI-BAG PLUS 100 ML IV SCH (10:30)
[2023-01-20] MEDS ORDERED: Lactated Ringers 1,000 ML IV SCH (11:00)
[2023-01-20] MEDS ORDERED: Lactated Ringers 1,000 ML IV ONE (11:10)
[2023-01-20 11:27] LABS: Absolute Neutrophil Ct (ANC) 3.33 x10^3/uL (1.4-6.9); BASOPHIL % 0.6 % (0.0-0.4); Basophil (Absolute #) 0.03 x10^3/uL (0-0.4); Eosinophil % 2.8 % (0.00-5.0); Eosinophil (Absolute #) 0.14 x10^3/uL (0-0.5); Hematocrit 24.9 % (35-47); IMMATURE GRAN # 0.03 x10^3u/L (0.00-0.03); IMMATURE GRAN % 0.6 % (0.00-0.4); Lymphocyte (Absolute #) 0.84 x10^3/uL (1.0-4.6); Mean Cell Volume 89.9 fL (78-100); Mean Corpuscular Hemoglobin 24.5 pg (26-32); Mean Corpuscular Hgb Concent. 27.3 g/dL (32-36); Mean Platelet Volume 9.6 fL (7.5-11.0); Monocyte (Absolute #) 0.57 x10^3/uL (0.0-1.3); Monocytes % 11.5 % (0.0-12.0); Neutrophil % 67.5 % (36.0-66.0); Platelet Count 136 x10^3/uL (150-450); Red Blood Count 2.77 x10^6/uL (4.1-5.4); Red Cell Distribution Width 18.1 % (11.5-14.0); White Blood Count 4.9 x10^3/uL (4.0-10.5)
[2023-01-20 11:29] LABS: Hemoglobin 6.8 g/dL (12.0-16.0)
[2023-01-20 11:43] LABS: ALBUMIN 3.2 g/dL (3.5-5.0); ALKALINE PHOSPHATASE 97 U/L (38-126); BLOOD UREA NITROGEN 29 mg/dL (7-17); CHLORIDE 97 mmol/L (98-107); Calcium 8.8 mg/dL (8.4-10.2); Creatinine 1 0.98 mg/dL (0.52-1.04); EST GLOMERULAR FILTRATION RATE > 60.0 ML/MIN; Glucose 145 mg/dL (74-106); Potassium 3.8 mmol/L (3.5-5.1); SGOT/AST 52 U/L (14-36); SGPT/ALT 38 U/L (0-35); SODIUM 141 mmol/L (137-145); Total Protein 7.8 g/dL (6.3-8.2)
[2023-01-20 11:45] LABS: INR 1.09 (0.8-3.0); PROTIME 11.8 SECONDS (9.4-12.5); PTT 25.9 SECONDS (25.1-36.5)
--- NOTE | 2023-01-20 11:50 | XRAY ---
Indication: Preop exam. Morbid obesity. Comparison: November 21.3 Portable chest demonstrates new subtle right base infiltrate versus atelectasis. Remaining heart and lungs unremarkable with new right arm PICC line. Bony thorax intact again with mild degenerative changes. Impression: New right base infiltrate versus atelectasis. Correlate clinically.
[2023-01-20 11:51] LABS: Carbon Dioxide 34 mmol/L (22-30)
[2023-01-20 11:52] LABS: ANION GAP 13.8 MEQ/L (5-15)
[2023-01-20] MEDS ORDERED: Xylocaine 1% Vial 30 ML PF IJ ONE (12:09)
[2023-01-20] MEDS ORDERED: Marcaine Mpf 0.5% Vial 30 Ml ONE (12:09)
[2023-01-20 13:09] LABS: ABO TYPING A; Antibody Screen NEGATIVE (NEGATIVE); RH TYPING POSITIVE
[2023-01-20 13:13] LABS: CROSS MATCH (PRBC) COMPATIBLE (COMPATIBLE)
[2023-01-20] MEDS ORDERED: Versed 2 MG/2 ML Injection ONE ×2 (13:40→13:41)
[2023-01-20] MEDS ORDERED: SUBLIMAZE 100 MCG/2 ML ONE (13:58)
[2023-01-20 14:37] LABS: Slide Review 1 YES
--- NOTE | 2023-01-20 14:57 | XRAY ---
Indication: Removal of right external fixator. Bone biopsy right tibia/fibula/calcaneus/talus. Intraoperative fluoroscopy provided for 32 seconds. 6 digital spot images submitted for interpretation demonstrates bone biopsy needle tips projecting distal tibia, posterior calcaneus, posterior fibula, and anterior talus. Correlate with intraoperative findings/report.
[2023-01-20] MEDS ORDERED: HYDROCODONE-ACETAMIN 10-325 MG PO PRN ×2 (15:08→15:32)
[2023-01-20] MEDS ORDERED: Sodium Chloride 0.9% 1000 ML 1,000 ML ONE (15:16)
--- NOTE | 2023-01-20 15:51 | XRAY ---
32 seconds of fluoroscopy was used in surgery for a removal of right external fixator. Bone biopsy right tibia/fibula/calcaneus/talus.
[2023-01-20] MEDS ORDERED: Lasix 20 MG/2 ML IV PRN (17:47)
[2023-01-20] MEDS: HYDROCODONE-ACETAMIN 10-325 MG PO PRN (20:21)
[2023-01-20 23:52] LABS: Hematocrit 28.9 % (35-47)
[2023-01-20] MEDS: Merrem 1 GM in Sodium Chloride 100ML MINI-BAG PLUS 100 ML IV SCH (23:56)
[2023-01-21] LABS: Hemoglobin 8.4 g/dL (12.0-16.0)
[2023-01-21] MEDS: HYDROCODONE-ACETAMIN 10-325 MG PO PRN ×2 (00:50→06:50)
[2023-01-21] MEDS: Merrem 1 GM in Sodium Chloride 100ML MINI-BAG PLUS 100 ML IV SCH (04:11)
[2023-01-21 04:12] VITALS: RESP 18
[2023-01-21 07:43] VITALS: BP 124/58; PULSE 77; TEMP 97.5; O2SAT 95
[2023-01-21] MEDS ORDERED: Ecotrin 325 MG PO SCH (10:00)
--- NOTE | 2023-01-21 11:58 | OP ---
SURGERY DATE: 01/20/2023 SURGERY TIME: 1331 PREOPERATIVE DIAGNOSIS: 1. CLOSED BIMALLEOLAR FRACTURE RIGHT ANKLE, COMPLICATION. 2. CHARCOT ARTHROPATHY OF RIGHT ANKLE JOINT. 3. PERIPHERAL NEUROPATHY DUE TO DIABETES TYPE 2 UNCONTROLLED. 4. RHEUMATOID ARTHRITIS. 5. PAIN RIGHT FOOT. 6. PAIN RIGHT ANKLE. 7. PRESSURE INJURY OF HEEL. 8. FOOT ULCER SECONDARY TO DIABETES MELLITUS. 9. VENOUS INSUFFICIENCY ULCER OF LEG. 10. LOCALIZED EDEMA RIGHT LOWER EXTREMITY. POSTOPERATIVE DIAGNOSIS: 1. CLOSED BIMALLEOLAR FRACTURE RIGHT ANKLE, COMPLICATION. 2. CHARCOT ARTHROPATHY OF RIGHT ANKLE JOINT. 3. PERIPHERAL NEUROPATHY DUE TO DIABETES TYPE 2 UNCONTROLLED. 4. RHEUMATOID ARTHRITIS. 5. PAIN RIGHT FOOT. 6. PAIN RIGHT ANKLE. 7. PRESSURE INJURY OF HEEL. 8. FOOT ULCER SECONDARY TO DIABETES MELLITUS. 9. VENOUS INSUFFICIENCY ULCER OF LEG. 10. LOCALIZED EDEMA RIGHT LOWER EXTREMITY. PROCEDURE: 1. Removal of external fixator right lower extremity. 2. Bone biopsy of tibia, fibula, talus, and calcaneus. 3. Wound debridement anterior right ankle to the level of subq. SURGEON: Heriberto Soto D.P.M. INTELLIGENCE OFFICER: None. ANESTHESIA: Isom. HEMOSTASIS: A pressure dressing. ESTIMATED BLOOD LOSS: Approximately 15 cc. MATERIALS: 3-0 Nylon. INJECTABLES: None. INDICATIONS: Amelia is a very pleasant 57 year-old female well known to my service for a closed bimalleolar fracture. When I met her at that time, she had an A1C of 14 and was on chronic Prednisone for rheumatoid arthritis as well as severe peripheral neuropathy. Patient was not a good candidate at that time and had venous insufficiency ulcers as well. We waited for soft tissue to resolve prior to proceeding. However, patient did develop a Methicillin-resistant staphylococcus aureus infection that got into the joint and the Charcot seemingly eroded the talus. From that standpoint, the patient was placed in an external fixator and temporary fixation was held utilizing a cement spacer with intramedullary nail. At this time, the patient is having worsening venous insufficiency as a result of worsening congestive heart failure and has developed new wound. She also had an episode where she was left with nothing over her leg with the exception of the external fixation for approximately a week when she was in a hospital due to the fall process she had critical limb ischemia. CT angiogram was performed demonstrating excellent blood vessel run-off and she was returned to her health care facility. From that standpoint, at this time, I would like to proceed with getting repeat bone biopsies as it has been 6 weeks, but the patient has been on IV antibiotics. If we have negative cultures, the plan will be to proceed with definitive fixation. At this time, the patient understands all risks, complications, and benefits of surgical intervention including, but not limited to infection; hematoma; seroma; possibility of delayed wound healing, non-wound healing; possibility of loss of limb; and possibility of loss of life as a result. She understands all of these risks and wishes to proceed with surgical intervention at this time. Once again, no guarantees have been provided. This is limb salvage and as a result, the patient understands that there is no guarantee at the end of this procedure. It is with that we decided to proceed. PROCEDURE: The patient was brought in to the OR and placed under light sedation with the anesthesia team. At this time, prior to prep, the frame was clipped and then once the frame was removed, the sites were prepped with copious amounts of iodine. Following this, on power, the olive wires were removed from the leg. Under fluoroscopic guidance, multiple trocar bone biopsies were taken, one for culture and one for pathology each to the tibia, talus, fibula, and calcaneus. At this time, a wound that had developed while she was in the hospital at the anterior aspect of the leg measuring 2.3 X 3.5 at the time of surgical intervention was debrided utilizing a curette, 15 blade, and copious amounts of sterile saline on a Pulsavac. Following this, all sites were cleansed utilizing the Pulsavac. A dressing consisting of Betadine, Adaptic, 4 X 4, Kerlix, and a well-padded posterior splint was applied to the patient's right lower extremity. Patient was then reversed from anesthesia and returned to the PACU with vital signs stable and vascular status intact. The patient handled the anesthesia as well as the procedure without significant complications. Postoperative orders as indicated in the patient's discharge chart.
== END 2023-01-21 08:26 ==
LOC: SDC 10:09 → MED SURG 17:00 → SDC 17:00
PROVIDERS: ATTEND Podiatrist Foot & Ankle Surgery
DX: S82.841A Displaced bimalleolar fracture of right lower leg, initial encounter for closed fracture (principal); M14.671 Charcot's joint, right ankle and foot; E11.42 Type 2 diabetes mellitus with diabetic polyneuropathy; M06.9 Rheumatoid arthritis, unspecified; M79.671 Pain in right foot; M25.571 Pain in right ankle and joints of right foot; L89.619 Pressure ulcer of right heel, unspecified stage; E11.621 Type 2 diabetes mellitus with foot ulcer; I87.2 Venous insufficiency (chronic) (peripheral); R60.0 Localized edema
CPT/HCPCS: 11042; 20225; 20694; 36415; 71045; 73630; 76000; 80053; 82947; 83036; 83880; 85014; 85018; 85025; 85610; 85730; 86850; 86900; 86901; 86922; 87070; 94760; P9016; 36430; J1940; J2001; J2250; J3010; A9270-GY

== ENCOUNTER 2023-03-24 10:30 | Day surgery (SDC) | payer MEDICAID ==
[2023-03-24] MEDS ORDERED: Maxipime 2 GM** 2 G in Sodium Chloride 0.9% 100 ML IV STA (11:07)
[2023-03-24 11:25] VITALS: RESP 18
[2023-03-24] MEDS ORDERED: Xylocaine 1% Vial 30 ML PF IJ ONE (11:26)
[2023-03-24] MEDS ORDERED: Marcaine Mpf 0.5% Vial 30 Ml ONE (11:26)
[2023-03-24] MEDS ORDERED: CEFAZOLIN 2 GM-D5W BAG** 2 GM/50 ML ML IV SCH (11:30)
[2023-03-24] MEDS ORDERED: Lactated Ringers 1,000 ML IV SCH (11:30)
[2023-03-24] MEDS ORDERED: Lactated Ringers 1,000 ML IV ONE (11:38)
[2023-03-24] MEDS ORDERED: CEFAZOLIN 2 GM-D5W BAG** 2 GM/50 ML ML IV ONE (11:46)
[2023-03-24] MEDS ORDERED: DIPRIVAN 200 MG/20 ML IV ONE ×3 (11:58→14:09)
[2023-03-24] MEDS ORDERED: Xylocaine-Mpf 2% 5 Ml Vial ONE (11:58)
[2023-03-24] MEDS ORDERED: Maxipime 2 GM** 2 G in Sodium Chloride 100ML MINI-BAG PLUS 100 ML IV SCH (12:00)
[2023-03-24] MEDS ORDERED: Versed 2 MG/2 ML Injection ONE (12:05)
[2023-03-24] MEDS ORDERED: SUBLIMAZE 100 MCG/2 ML ONE ×2 (12:05→14:38)
[2023-03-24 12:10] LABS: Hematocrit 28.2 % (35-47); Hemoglobin 8.3 g/dL (12.0-16.0); Mean Cell Volume 90.1 fL (78-100); Mean Corpuscular Hemoglobin 26.5 pg (26-32); Mean Corpuscular Hgb Concent. 29.4 g/dL (32-36); Mean Platelet Volume 9.2 fL (7.5-11.0); Platelet Count 149 x10^3/uL (150-450); Red Blood Count 3.13 x10^6/uL (4.1-5.4); Red Cell Distribution Width 19.5 % (11.5-14.0); White Blood Count 5.5 x10^3/uL (4.0-10.5)
[2023-03-24 12:31] LABS: INR 1.2 (0.8-3.0); PROTIME 12.9 SECONDS (9.4-12.5); PTT 27.1 SECONDS (25.1-36.5)
[2023-03-24 12:34] LABS: ALBUMIN 3.2 g/dL (3.5-5.0); BILIRUBIN,TOTAL 1.3 mg/dL (0.2-1.3); Calcium 8.7 mg/dL (8.4-10.2); Creatinine 1 1.08 mg/dL (0.52-1.04); Potassium 3.7 mmol/L (3.5-5.1); Total Protein 8.2 g/dL (6.3-8.2)
[2023-03-24 12:35] LABS: ANION GAP 11.7 MEQ/L (5-15)
[2023-03-24] MEDS ORDERED: NEBCIN INJ ONE (13:00)
[2023-03-24] MEDS ORDERED: VANCOCIN INJECTION IV ONE (13:00)
--- NOTE | 2023-03-24 14:36 | XRAY ---
Indication: Right ankle incision and drainage with bone debridement. Intraoperative fluoroscopy provided for 1 minute 12 seconds. 4 digital spot images submitted for interpretation demonstrates new vertical intramedullary screw traversing ankle with tip projecting distal tibial shaft.. Correlate with intraoperative findings/report.
--- NOTE | 2023-03-24 15:08 | XRAY ---
One minute and 12 seconds of fluoroscopy was used in surgery for a right foot and ankle I&D with bone debridement, removal and insertion of antibiotic spacer.
[2023-03-24 15:37] VITALS: O2SAT 98
[2023-03-24 16:23] VITALS: BP 110/68; PULSE 75; TEMP 97.8
[2023-03-24] MEDS ORDERED: Sodium Chloride 0.9% 10 ML FLUSH Syringe PICC PRN (16:25)
--- NOTE | 2023-03-25 09:39 | OP ---
SURGERY DATE/TIME: 03/24/2023 0132 PREOPERATIVE DIAGNOSES: 1) Osteomyelitis. 2) Diabetic foot infection. 3) Venous insufficiency ulceration. 4) Noncompliance with postoperative course. 5) Surgical wound dehiscence. 6) Pseudomonas infection. 7) Rheumatoid arthritis. POSTOPERATIVE DIAGNOSES: 1) Osteomyelitis. 2) Diabetic foot infection. 3) Venous insufficiency ulceration. 4) Noncompliance with postoperative course. 5) Surgical wound dehiscence. 6) Pseudomonas infection. 7) Rheumatoid arthritis. PROCEDURES: 1) Removal of hardware. 2) Exchange of antibiotic spacer. 3) Incision and drainage with bone debridement right ankle. 4) Incision and drainage with bone debridement right foot. SURGEON: Heriberto Soto DPM. DENTIST: None. ANESTHESIA: Monitored anesthesia care. HEMOSTASIS: Pressure dressing. ESTIMATED BLOOD LOSS: Approximately 50 cc. MATERIALS: 2-0 Nylon. A genex tobramycin and vancomycin impregnated antibiotic spacer as well as a calcaneal transfixation pin. INJECTABLES: None. INDICATION FOR SURGERY: Amelia is a very pleasant 58-year-old female very well known to my service for an ankle fracture for which was very high risk secondary to the patient's venous insufficiency ulcers as well as A1C of 14 at the time of meeting. The patient was also on prednisone treating her rheumatoid arthritis and did have a significant cardiac history with venous insufficiency. As a result, we did delay treatment with the option of proceeding with a fusion this was the plan initially. However, the patient developed an infection. This infection was superficial at first however did end up going to the level of the bone. Bone cultures and biopsies were taken before and after initial debridement and had been found to show that there is no residual osteomyelitis. The patient was doing well for approximately six weeks however did develop a subsequent infection after her leg was left unwrapped and she did dehisce a portion of the surgical wound. As a result even with the antibiotic spacer impregnated with vancomycin on previous visits, she did develop a Pseudomonas infection. At this time in the interest of limb salvage, we decided to proceed with incision and drainage with bone debridement and an exchange of the antibiotic spacer as its solution is likely diminished at this time. We would like to proceed. The patient understands all risks, complications and benefits of surgical intervention at this time including but not limited to infection, hematoma, seroma, possibility of delayed wound healing, nonwound healing and possibility of need for surgical intervention at a later date. This is a limb salvage case. The patient is under the impression that there is no greater than 50-50 in regards to proceeding. However, eradicating the infection prior to definitive fixation is our goal at this time. It is with that we decided to proceed. DESCRIPTION OF PROCEDURE AND FINDINGS: The patient is brought into the OR and placed on the OR table in the supine position. At this time general anesthesia care was administered until the patient was sedated. The right lower extremity was prepped and draped in the typical sterile fashion and lowered onto the surgical field. At this time attention was directed to the lateral wound where there was a surgical dehiscence which curved down to the level of the antibiotic spacer. At this time a 10 blade was utilized to make a full thickness incision down to the level of the antibiotic spacer. This spacer was removed utilizing an osteotome. Following this, the intramedullary Kellie pin was removed from the bone from the plantar aspect of the foot. Following this an [employer] Bone [employer]vester was utilized for debridement intramedullary in the tibia as well as the calcaneus. Following this bone biopsies were obtained. Bactisure was utilized to flush the surgical site with copious amounts of sterile saline intramedullary aspect and then cleansed with 3 liters of sterile saline. Following this bone biopsy was obtained from the distal tibia and the calcaneus. Following this, new antibiotic spacer was formed, impregnated with 80 mg of Tobramycin and 1 gm of vancomycin this was fashioned around a transfixation calcaneal pin and inserted into the medullary cavity of the tibia extending out of the bottom of the calcaneus as well as surrounding the transfixation pin. The wound was closed utilizing [id number] stitches of 2-0 Nylon. Following this a dressing consisting of Betadine, Adaptic, 4x4, Kerlix and SUKHJINDER was applied to the patient's right lower extremity with the foot orthogonal relative to the longitudinal axis of the leg. The patient was reversed from anesthesia and returned to the postoperative anesthesia care unit with vital signs stable and vascular status intact. The patient handled the anesthesia as well as the procedure without significant complication. Postoperative orders as indicated in the patient's discharge chart.
== END 2023-03-24 16:20 ==
LOC: SDC 10:30
PROVIDERS: ATTEND Podiatrist Foot & Ankle Surgery
DX: M86.9 Osteomyelitis, unspecified (principal); E13.8 Other specified diabetes mellitus with unspecified complications; L08.9 Local infection of the skin and subcutaneous tissue, unspecified; Z91.199 Patient's noncompliance with other medical treatment and regimen due to unspecified reason; M06.9 Rheumatoid arthritis, unspecified; B96.5 Pseudomonas (aeruginosa) (mallei) (pseudomallei) as the cause of diseases classified elsewhere
CPT/HCPCS: 11983; 20680; 27607; 28005; 36415; 73630; 76000; 80053; 83880; 85027; 85610; 85730; 87070; 87075; 93005; A6260; J0690; J0692; J1642; J2001; J2250; J2704; J3010; J3260; J3370

== ENCOUNTER 2023-04-27 12:57 | Observation (INO) | payer MEDICAID ==
[2023-04-27] MEDS ORDERED: PHENYLEPHRINE HCL 10 MG in Dextrose 5%/Water IV Soln. 250 ML 250 ML IV ONE (12:58)
--- NOTE | 2023-04-27 14:38 | PCM.NOTE ---
Date and Time: 04/27/23 5785 Subjective Assessment: Ms. David is a 58 year old female with a history of DM, HTN, obesity, GERD, neuropathy, CHF, and chronic anemia Patient of Dr. Soto admitted for surgical repair/graft of her right ankle scheduled for 04/28/23. On 3L of oxygen, but unclear as to why, patient states mostly due to anxiety, she does have h/o ANGIE and is supposed to use CPAP but does better with NC oxygen. Patient has a history of prior right foot fracture status post repair with a nail. However, patient had difficulty keeping her weight off of her foot, leading to wound dehiscence and subsequent outpatient surgery for removal of nail and placement of an external fixator. She has been receiving Daptomycin at [facility] where she resides via PICC placed in the [facility]. She is immobile due to her non-weight bearing status. The hospitalist team has been consulted for medical management. Patient denies fever,cough, sob, cp, abdominal pain, KERR, dizziness, N/V/D. - Review of Systems Constitutional: No Symptoms Eyes: No Symptoms Ears, Nose, & Throat: No Symptoms Respiratory: No Symptoms Cardiac: Other (BLE compression dressing to LLE) Abdominal/Gastrointestinal: No Symptoms Genitourinary Symptoms: No Symptoms Musculoskeletal: No Symptoms Skin: No Symptoms Neurological: No Symptoms Psychological: Depression Endocrine: No Symptoms Hematologic/Lymphatic: Anemia Objective Exam General Appearance: no apparent distress Neurologic Exam: alert, oriented x 3, cooperative Skin Exam: pale Eye Exam: PERRL Ears, Nose, Throat Exam: normal ENT inspection Neck Exam: normal inspection Respiratory Exam: normal breath sounds, lungs clear Cardiovascular Exam: regular rate/rhythm, normal heart sounds Gastrointestinal/Abdomen Exam: soft, normal bowel sounds Extremity Exam: inflammation (BLE edema, compression dressing to LLE unna boot), limited range of motion (RLE) Back Exam: normal inspection Pelvic Exam: deferred Rectal Exam: deferred Assessment/Plan (1) HTN (hypertension) Current Visit: Yes Status: Acute Assessment & Plan: -Continue home medications, monitor daily, adjustments as appropriate Code(s): I10 - ESSENTIAL (PRIMARY) HYPERTENSION (2) CHF (congestive heart failure) Current Visit: Yes Status: Acute Assessment & Plan: -No recent echo -Patient states she followed previously with [facility], unsure who -Does not appear to be in exacerbation, LLE with compression dressing Code(s): I50.9 - HEART FAILURE, UNSPECIFIED (3) Anemia Current Visit: No Status: Acute Assessment & Plan: -CBC daily, replace if hgb <7 -iron studies Code(s): D64.9 - ANEMIA, UNSPECIFIED (4) Generalized weakness Current Visit: No Status: Acute Assessment & Plan: -Due to immobility/deconditioning with Non-weightbearing status -Consider PT eval if okay with podiatry Code(s): R53.1 - WEAKNESS (5) ANGIE (obstructive sleep apnea) Current Visit: No Status: Acute Assessment & Plan: -Patient states she is supposed to use CPAP but does better with NC oxygen Code(s): G47.33 - OBSTRUCTIVE SLEEP APNEA (ADULT) (PEDIATRIC) (6) Diabetes mellitus Current Visit: No Status: Chronic Qualifiers: Diabetes mellitus type: type 2 Diabetes mellitus watermaster insulin use: with watermaster use Diabetes mellitus complication status: with other specified complication Qualified Code(s): E11.69 - Type 2 diabetes mellitus with other specified complication; Z79.4 - care home (current) use of insulin Assessment & Plan: -SSI -ADA diet -A1C -Promote good glycemic control for healing Code(s): E11.9 - TYPE 2 DIABETES MELLITUS WITHOUT COMPLICATIONS (7) History of ankle surgery Current Visit: Yes Status: Acute Assessment & Plan: -prior right ankle repair, scheduled for extensive surgical repair/graft 04/28/[address] Soto Code(s): Z98.890 - OTHER SPECIFIED POSTPROCEDURAL STATES
--- NOTE | 2023-04-27 14:59 | PCM.HP ---
History of Present Illness - Chief Complaint Chief Complaint: Consult for medical management/ right ankle repair Date: 04/27/23 History of Present Illness: Ms. David is a 58 year old female with a history of DM, HTN, obesity, GERD, neuropathy, CHF, and chronic anemia Patient of Dr. Soto admitted for surgical repair/graft of her right ankle scheduled for 04/28/23. On 3L of oxygen, but unclear as to why, patient states mostly due to anxiety, she does have h/o ANGIE and is supposed to use CPAP but does better with NC oxygen. Patient has a history of prior right foot fracture status post repair with a nail. However, patient had difficulty keeping her weight off of her foot, leading to wound dehiscence and subsequent outpatient surgery for removal of nail and placement of an external fixator. She has been receiving Daptomycin at [facility] where she resides via PICC placed in the [facility]. She is immobile due to her non-weight bearing status. The hospitalist team has been consulted for medical management. Patient denies fever,cough, sob, cp, abdominal pain, KERR, dizziness, N/V/D. - Review of Systems Constitutional: No Symptoms Eyes: No Symptoms Ears, Nose, & Throat: No Symptoms Respiratory: No Symptoms Cardiac: Edema Abdominal/Gastrointestinal: Constipation Genitourinary Symptoms: No Symptoms Musculoskeletal: Joint Pain Skin: Other (BLE edema with compression dressings bilaterally) Neurological: No Symptoms Psychological: Depression Endocrine: No Symptoms Hematologic/Lymphatic: No Symptoms Immunological/Allergic: No Symptoms Medications & Allergies Home Medications: Home Medication List Furosemide [Lasix] 40 mg PO BID 10/06/13 [History Confirmed 03/24/23] Atorvastatin Calcium [Lipitor 20MG Tablet] 20 mg PO DAILY 06/11/17 [History Confirmed 03/24/23] Albuterol Sulfate [Albuterol Sulfate Hfa] 1 puff IH Q4HPRN PRN 07/04/22 [History Confirmed 03/23/23] Insulin Glargine [Lantus Insulin] 50 unit SQ HS 09/20/22 [History Confirmed 03/24/23] Gabapentin Enacarbil [Horizant] 600 mg PO BID 11/12/22 [History Confirmed 03/24/23] Insulin Lispro [Humalog] 0 unit SQ DAILY 11/12/22 [History Confirmed 03/24/23] Aspirin EC 325 mg [Ecotrin 325 MG] 325 mg PO DAILY 12/05/22 [History Confirmed 03/24/23] Hydrocodone/Acetaminophen [Hydrocodone-Acetamin 10-325 mg] 1 tablet PO Q4H PRN PRN 12/05/22 [History Confirmed 03/24/23] PANTOPRAZOLE 40 mg Tablet [Protonix 40MG Tablet] 40 mg PO BID 12/05/22 [History Confirmed 03/24/23] Metolazone 2.5 mg [Zaroxolyn 2.5 MG] 2.5 mg PO UD 01/19/23 [History Confirmed 03/24/23] Sennosides/Docusate Sodium [Senna Plus 8.6-50 mg Tablet] 1 tab PO BID 04/27/23 [History Confirmed 04/27/23] Allergies/Adverse Reactions: Allergies Allergy/AdvReac Type Severity Reaction Status Date / Time adhesive tape AdvReac Intermediate Verified 03/24/23 11:10 hydromorphone [From Dilaudid] AdvReac Verified 04/27/23 13:16 - Past Medical History Past Medical History: Yes Neurological History: No Pertinent History ENT History: No Pertinent History Cardiac History: Deep Vein Thrombosis, High Cholesterol, Hypertension Respiratory History: CHF Endocrine Medical History: Diabetes Type II Musculoskelatal History: Rheumatoid Arthritis GI Medical History: GERD, Other History: No Pertinent History Pyscho-Social History: No Pertinent History Reproductive Disorders: No Pertinent History Comment: BURSITIS TO BOTH SHOULDERS, NEUROPATHY THROUGHOUT HER BODY. Charcot of the right foot/ankle. thrombocytopenia. gastroparesis - Past Surgical History Past Surgical History: Yes Neuro Surgical History: No Pertinent History Cardiac History: No Pertinent History Respiratory Surgery: No Pertinent History GI Surgical History: Other Genitourinary Surgical Hx: No Pertinent History Musculskeletal Surgical Hx: No Pertinent History Female Surgical History: Tubal Ligation, Other Other Surgical History: d & c, (rectal surgery x3, cyst removed from rectum). cyst removed from pancreas. right foot surgery - Social History Smoking Status: Never smoker Exposure to second hand smoke: No Alcohol: None Drug Use: none Significant Family History: no pertinent family hx - Physical Exam General Appearance: no apparent distress Neurologic Exam: alert, oriented x 3, cooperative Eye Exam: PERRL/EOMI Ears, Nose, Throat Exam: normal ENT inspection Neck Exam: normal inspection Respiratory Exam: normal breath sounds, lungs clear Cardiovascular Exam: regular rate/rhythm, normal heart sounds, edema (BLE) Gastrointestinal/Abdomen Exam: soft, normal bowel sounds Pelvic Exam: not done Rectal Exam: deferred Back Exam: normal inspection Extremity Exam: limited range of motion (NWB), swelling (BLE with compression dressing/ UNNA boot) Skin Exam: pale Assessment/Plan (1) HTN (hypertension) Current Visit: Yes Status: Acute Assessment & Plan: -Continue home medications, monitor daily, adjustments as appropriate Code(s): I10 - ESSENTIAL (PRIMARY) HYPERTENSION (2) CHF (congestive heart failure) Current Visit: Yes Status: Acute Assessment & Plan: -Continue home meds as appropriate -No recent echo -Patient states she followed previously with [facility], unsure who -Does not appear to be in exacerbation, LLE with compression dressing Code(s): I50.9 - HEART FAILURE, UNSPECIFIED (3) Anemia Current Visit: No Status: Acute Assessment & Plan: -CBC daily, replace if hgb <7 -iron studies Code(s): D64.9 - ANEMIA, UNSPECIFIED (4) Generalized weakness Current Visit: No Status: Acute Assessment & Plan: -Due to immobility/deconditioning with Non-weightbearing status -Consider PT eval if okay with podiatry Code(s): R53.1 - WEAKNESS (5) ANGIE (obstructive sleep apnea) Current Visit: No Status: Acute Assessment & Plan: -Patient states she is supposed to use CPAP but does better with [place] oxygen Code(s): G47.33 - OBSTRUCTIVE SLEEP APNEA (ADULT) (PEDIATRIC) (6) Diabetes mellitus Current Visit: No Status: Chronic Qualifiers: Diabetes mellitus type: type 2 Diabetes mellitus truck terminal manager insulin use: with detention use Diabetes mellitus complication status: with other specified complication Qualified Code(s): E11.69 - Type 2 diabetes mellitus with other specified complication; Z79.4 - [facility] (current) use of insulin Assessment & Plan: -SSI -ADA diet -A1C -Promote good glycemic control for healing/advised weight loss Code(s): E11.9 - TYPE 2 DIABETES MELLITUS WITHOUT COMPLICATIONS (7) History of ankle surgery Current Visit: Yes Status: Acute Assessment & Plan: -prior right ankle repair, scheduled for extensive surgical repair/graft 04/28/[address] Soto -Continue dapto as directed VTE: when okay with podiatry PPI: protonix Dispo: 3-5 days Next of Kin: Valeri Buckner (parent) [phone] Code(s): Z98.890 - OTHER SPECIFIED POSTPROCEDURAL STATES
[2023-04-27] MEDS ORDERED: DUONEB 0.5-3 MG/3 ml Neb IH PRN (15:01)
[2023-04-27] MEDS ORDERED: HUMALOG SQ PRN (15:01)
[2023-04-27] MEDS ORDERED: TYLENOL 325 MG PO PRN (15:01)
[2023-04-27] MEDS ORDERED: Docusate Sodium 100 MG PO PRN (15:01)
[2023-04-27] MEDS ORDERED: Zofran 4 MG/2 ML VIAL IV PRN (15:01)
[2023-04-27] MEDS ORDERED: ZOFRAN ODT 4 MG PO PRN (15:19)
[2023-04-27] MEDS ORDERED: VENTOLIN COMMON CANISTER IH PRN (15:19)
[2023-04-27] MEDS ORDERED: MEDICATION INTERVENTION MC SCH (15:45)
[2023-04-27] MEDS: HYDROCODONE-ACETAMIN 10-325 MG PO SCH ×3 (16:47→23:57)
[2023-04-27 17:07] LABS: Iron 21 ug/dL (37-170); Iron Saturation 7 % (20-39); TIBC 294 ug/dL (265-462)
[2023-04-27 17:26] LABS: A-aADO2 28; ABG HEMOGLOBIN 8.3; ABG POTASSIUM 3.6 (3.5-5.1); ARTERIAL BLD GAS O2 SATURATION 99.4 % (95-100); ARTERIAL BLOOD GAS BASE EXCESS 18.8 (-2.0-2.0); ARTERIAL BLOOD GAS FIO2 32 %; ARTERIAL BLOOD GAS PCO2 52 mmHg (35-45); ARTERIAL BLOOD GAS PO2 135 mmHg (75-100); ARTERIAL BLOOD GAS pH 7.53 (7.35-7.45); CARBOXYHEMOGLOBIN 1.6 % THgb (0.0-6.9); HCO3- 43.5 (22-28); HGB O2 SAT 96.7 g/dF (94-100); paO2 pAO1 0.83
[2023-04-27 17:27] LABS: ABG SITE LEFT BRACHIAL
[2023-04-27 17:29] LABS: ABO TYPING A; Antibody Screen NEGATIVE (NEGATIVE); RH TYPING POSITIVE
[2023-04-27] MEDS: DEMADEX 20 MG PO SCH (18:00)
[2023-04-27 18:13] LABS: BASOPHIL % 0.4 % (0.0-0.4); Basophil (Absolute #) 0.02 x10^3/uL (0-0.4); Eosinophil % 3.5 % (0.00-5.0); Eosinophil (Absolute #) 0.16 x10^3/uL (0-0.5); Hemoglobin 7.9 g/dL (12.0-16.0); IMMATURE GRAN # 0.02 x10^3u/L (0.00-0.03); IMMATURE GRAN % 0.4 % (0.00-0.4); Lymphocyte (Absolute #) 1.31 x10^3/uL (1.0-4.6); Mean Cell Volume 93.8 fL (78-100); Mean Corpuscular Hemoglobin 27.4 pg (26-32); Mean Corpuscular Hgb Concent. 29.3 g/dL (32-36); Mean Platelet Volume 10.2 fL (7.5-11.0); Monocytes % 15.5 % (0.0-12.0); Neutrophil % 51.2 % (36.0-66.0); Platelet Count 130 x10^3/uL (150-450); Red Blood Count 2.88 x10^6/uL (4.1-5.4); Red Cell Distribution Width 17.2 % (11.5-14.0); White Blood Count 4.5 x10^3/uL (4.0-10.5)
[2023-04-27 18:21] LABS: INR 1.18 (0.8-3.0); PROTIME 12.7 SECONDS (9.4-12.5)
[2023-04-27 18:53] LABS: Ferritin 31.5 ng/mL (11.1-264); Folate (Folic Acid) 6.14 ng/mL (2.76 - >20)
[2023-04-27 19:32] LABS: ALBUMIN 2.9 g/dL (3.5-5.0); BILIRUBIN,TOTAL 0.6 mg/dL (0.2-1.3); Creatinine 1 1.08 mg/dL (0.52-1.04); EST GLOMERULAR FILTRATION RATE 58.8 ML/MIN; Potassium 3.6 mmol/L (3.5-5.1); Total Protein 7.9 g/dL (6.3-8.2)
[2023-04-27 19:42] LABS: ANION GAP 8.6 MEQ/L (5-15)
[2023-04-27] MEDS: Protonix 40MG Tablet PO SCH (21:34)
[2023-04-27] MEDS: Klor Con PO SCH (21:34)
[2023-04-27] MEDS ORDERED: GABAPENTIN ENACARBIL 600 MG PO SCH (22:00)
[2023-04-27] MEDS: LIPITOR 40MG PO SCH (22:12)
[2023-04-28] MEDS: HYDROCODONE-ACETAMIN 10-325 MG PO SCH ×5 (03:56→22:54)
[2023-04-28 04:58] LABS: BASOPHIL % 0.8 % (0.0-0.4); Basophil (Absolute #) 0.03 x10^3/uL (0-0.4); Eosinophil % 4.1 % (0.00-5.0); Eosinophil (Absolute #) 0.15 x10^3/uL (0-0.5); Hematocrit 27.3 % (35-47); Hemoglobin 7.9 g/dL (12.0-16.0); IMMATURE GRAN # 0.01 x10^3u/L (0.00-0.03); IMMATURE GRAN % 0.3 % (0.00-0.4); Lymphocyte (Absolute #) 1.01 x10^3/uL (1.0-4.6); Lymphocytes % 27.7 % (24.0-44.0); Mean Cell Volume 93.5 fL (78-100); Mean Corpuscular Hemoglobin 27.1 pg (26-32); Mean Corpuscular Hgb Concent. 28.9 g/dL (32-36); Mean Platelet Volume 9.5 fL (7.5-11.0); Monocyte (Absolute #) 0.55 x10^3/uL (0.0-1.3); Monocytes % 15.1 % (0.0-12.0); Platelet Count 122 x10^3/uL (150-450); Red Blood Count 2.92 x10^6/uL (4.1-5.4); Red Cell Distribution Width 17.1 % (11.5-14.0); White Blood Count 3.7 x10^3/uL (4.0-10.5)
--- NOTE | 2023-04-28 05:02 | PCM.NOTE ---
Date and Time: 04/28/23 0501 Subjective Assessment: HPI: Ms. David is a 58 year old female with a history of DM, HTN, obesity, GERD, neuropathy, CHF, and chronic anemia Patient of Dr. Soto admitted for surgical repair/graft of her right ankle scheduled for 04/28/23. On 3L of oxygen, but unclear as to why, patient states mostly due to anxiety, she does have h/o ANGIE and is supposed to use CPAP but does better with NC oxygen. Patient has a history of prior right foot fracture status post repair with a nail. However, patient had difficulty keeping her weight off of her foot, leading to wound dehiscence and subsequent outpatient surgery for removal of nail and placement of an external fixator. She has been receiving Daptomycin at [facility] where she resides via PICC placed in the [facility]. She is immobile due to her non-weight bearing status. The hospitalist team has been consulted for medical management. Patient denies fever,cough, sob, cp, abdominal pain, KERR, dizziness, N/V/D. 04/28/23: Met with patient bedside. No overnight events noted. Endorses RLE pain at 7/10 otherwise no complaints. Spoke with Dr. Soto regarding Hgb of 7.9, hold blood transfusion for now, will replace in surgery if needed. She does have an iron sat of 7% for which IV will be initiated. Patient has been advised that she will need referral to hematology on d/c to manage her chronic iron deficiency anemia. Denies fever,cough, sob, cp, abdominal pain, KERR, dizziness, N/V/D. - Review of Systems Constitutional: No Symptoms Eyes: No Symptoms Ears, Nose, & Throat: No Symptoms Respiratory: No Symptoms Cardiac: No Symptoms Abdominal/Gastrointestinal: No Symptoms Genitourinary Symptoms: No Symptoms Musculoskeletal: Joint Pain (Right ankle) Skin: Other (BLE edema with bilateral compression dressings) Neurological: Other (neuropathy to BLE) Psychological: No Symptoms Endocrine: No Symptoms Hematologic/Lymphatic: Anemia Objective Exam General Appearance: no apparent distress Neurologic Exam: alert, oriented x 3, cooperative Skin Exam: pale Wound Assessment: Skin/Wound Assessment Wound/Incision Assessment Start: 04/27/23 16:38 Text: Status: Active Freq: Q6H Protocol: Document 04/28/23 02:00 MP (Rec: 04/28/23 02:53 MP [id number]) Wound/Incision Assessment Right Foot Wound Assessment Admission Comment unable to assess, wrapped, scheduled for surgery tomorrow Eye Exam: PERRL Ears, Nose, Throat Exam: moist mucous membranes Neck Exam: normal inspection Respiratory Exam: normal breath sounds, lungs clear, other (3L o2 at baseline) Cardiovascular Exam: regular rate/rhythm, normal heart sounds, edema (BLE) Gastrointestinal/Abdomen Exam: soft, normal bowel sounds Extremity Exam: other (BLE with compression dressing) OBJECTIVE DATA Vital Signs: Vital Signs - 24 hr Temp Pulse Resp BP Pulse Ox 04/28/23 04:00 97.9 F 71 16 109/50 99 04/28/23 00:00 97.5 F 76 16 103/51 99 04/27/23 20:00 97.3 F 76 18 120/57 99 04/27/23 18:52 77 16 99 04/27/23 16:53 99 04/27/23 16:48 77 18 99 04/27/23 15:38 97.7 F 84 17 137/60 99 Pain Assessment - Last Documented Pain Intensity 9 Pain Scale Used 0-10 Pain Scale Intake and Output: Intake & Output 04/25/23 04/26/23 04/27/23 04/28/23 11:59 11:59 11:59 11:59 Intake Total 240 Balance 240 Weight 130.9 kg Lab Results: Lab Results-Last 24 Hours 04/27/23 04/27/23 04/27/23 Range/Units 15:15 15:15 15:15 WBC 4.5 (4.0-10.5) x10^3/uL RBC 2.88 L (4.1-5.4) x10^6/uL Hgb 7.9 L (12.0-16.0) g/dL Hct 27.0 L (35-47) % MCV 93.8 (78-100) fL MCH 27.4 (26-32) pg MCHC 29.3 L (32-36) g/dL RDW 17.2 H (11.5-14.0) % Plt Count 130 L (150-450) x10^3/uL MPV 10.2 (7.5-11.0) fL Gran % 51.2 (36.0-66.0) % Immature Gran % (Auto) 0.4 (0.00-0.4) % Nucleat RBC Rel Count 0.0 (0.00-0.1) % Eos # (Auto) 0.16 (0-0.5) x10^3/uL Immature Gran # (Auto) 0.02 (0.00-0.03) x10^3u/L Absolute Lymphs (auto) 1.31 (1.0-4.6) x10^3/uL Absolute Monos (auto) 0.70 (0.0-1.3) x10^3/uL Absolute Nucleated RBC 0.00 (0.00-0.01) x10^3u/L Lymphocytes % 29.0 (24.0-44.0) % Monocytes % 15.5 H (0.0-12.0) % Eosinophils % 3.5 (0.00-5.0) % Basophils % 0.4 (0.0-0.4) % Absolute Granulocytes 2.30 (1.4-6.9) x10^3/uL Basophils # 0.02 (0-0.4) x10^3/uL PT 12.7 H (9.4-12.5) SECONDS INR 1.18 (0.8-3.0) Puncture Site pCO2 (35-45) mmHg pO2 (75-100) mmHg Base Excess (-2.0-2.0) O2 Saturation (94-100) g/dF ABG pH (7.35-7.45) ABG HCO3 (22-28) ABG O2 Sat (Measured) (95-100) % Bhaskar Test A-a Gradient a/A Ratio Hemoglobin Carboxyhemoglobin (0.0-6.9) % THgb Methemoglobin (1.4-1.5) % Temperature C POC O2 Flow Rate % Sodium 138 (137-145) mmol/L Potassium 3.6 (3.5-5.1) mmol/L Chloride 94 L (98-107) mmol/L Carbon Dioxide 39 H (22-30) mmol/L Anion Gap 8.6 (5-15) MEQ/L BUN 23 H (7-17) mg/dL Creatinine 1.08 H (0.52-1.04) mg/dL Estimated GFR 58.8 ML/MIN Glucose 111 H (74-106) mg/dL POC Glucometer (74 to 106) mg/dL Calcium 9.0 (8.4-10.2) mg/dL Iron (37-170) ug/dL TIBC (265-462) ug/dL Iron Saturation (20-39) % Ferritin (11.1-264) ng/mL Total Bilirubin 0.60 (0.2-1.3) mg/dL AST 34 (14-36) U/L ALT 19 (0-35) U/L Alkaline Phosphatase 82 (38-126) U/L NT-Pro-B Natriuret Pep (<300) pg/mL Serum Total Protein 7.9 (6.3-8.2) g/dL Albumin 2.9 L (3.5-5.0) g/dL Prealbumin (17.6-36.0) mg/dL Vitamin B12 (239-931) pg/mL Folic Acid (2.76 - >20) ng/mL ABO Group Rh Factor Antibody Screen (NEGATIVE) Crossmatch (COMPATIBLE) 04/27/23 04/27/23 04/27/23 Range/Units 15:15 15:24 15:31 WBC (4.0-10.5) x10^3/uL RBC (4.1-5.4) x10^6/uL Hgb (12.0-16.0) g/dL Hct (35-47) % MCV (78-100) fL MCH (26-32) pg MCHC (32-36) g/dL RDW (11.5-14.0) % Plt Count (150-450) x10^3/uL MPV (7.5-11.0) fL Gran % (36.0-66.0) % Immature Gran % (Auto) (0.00-0.4) % Nucleat RBC Rel Count (0.00-0.1) % Eos # (Auto) (0-0.5) x10^3/uL Immature Gran # (Auto) (0.00-0.03) x10^3u/L Absolute Lymphs (auto) (1.0-4.6) x10^3/uL Absolute Monos (auto) (0.0-1.3) x10^3/uL Absolute Nucleated RBC (0.00-0.01) x10^3u/L Lymphocytes % (24.0-44.0) % Monocytes % (0.0-12.0) % Eosinophils % (0.00-5.0) % Basophils % (0.0-0.4) % Absolute Granulocytes (1.4-6.9) x10^3/uL Basophils # (0-0.4) x10^3/uL PT (9.4-12.5) SECONDS INR (0.8-3.0) Puncture Site pCO2 (35-45) mmHg pO2 (75-100) mmHg Base Excess (-2.0-2.0) O2 Saturation (94-100) g/dF ABG pH (7.35-7.45) ABG HCO3 (22-28) ABG O2 Sat (Measured) (95-100) % Bhaskar Test A-a Gradient a/A Ratio Hemoglobin Carboxyhemoglobin (0.0-6.9) % THgb Methemoglobin (1.4-1.5) % Temperature C POC O2 Flow Rate % Sodium (137-145) mmol/L Potassium (3.5-5.1) mmol/L Chloride (98-107) mmol/L Carbon Dioxide (22-30) mmol/L Anion Gap (5-15) MEQ/L BUN (7-17) mg/dL Creatinine (0.52-1.04) mg/dL Estimated GFR ML/MIN Glucose (74-106) mg/dL POC Glucometer (74 to 106) mg/dL Calcium (8.4-10.2) mg/dL Iron (37-170) ug/dL TIBC (265-462) ug/dL Iron Saturation (20-39) % Ferritin 31.5 (11.1-264) ng/mL Total Bilirubin (0.2-1.3) mg/dL AST (14-36) U/L ALT (0-35) U/L Alkaline Phosphatase (38-126) U/L NT-Pro-B Natriuret Pep 345 (<300) pg/mL Serum Total Protein (6.3-8.2) g/dL Albumin (3.5-5.0) g/dL Prealbumin (17.6-36.0) mg/dL Vitamin B12 (239-931) pg/mL Folic Acid 6.14 (2.76 - >20) ng/mL ABO Group A Rh Factor POSITIVE Antibody Screen NEGATIVE (NEGATIVE) Crossmatch (COMPATIBLE) 04/27/23 04/27/23 04/27/23 Range/Units 16:25 16:38 16:40 WBC (4.0-10.5) x10^3/uL RBC (4.1-5.4) x10^6/uL Hgb (12.0-16.0) g/dL Hct (35-47) % MCV (78-100) fL MCH (26-32) pg MCHC (32-36) g/dL RDW (11.5-14.0) % Plt Count (150-450) x10^3/uL MPV (7.5-11.0) fL Gran % (36.0-66.0) % Immature Gran % (Auto) (0.00-0.4) % Nucleat RBC Rel Count (0.00-0.1) % Eos # (Auto) (0-0.5) x10^3/uL Immature Gran # (Auto) (0.00-0.03) x10^3u/L Absolute Lymphs (auto) (1.0-4.6) x10^3/uL Absolute Monos (auto) (0.0-1.3) x10^3/uL Absolute Nucleated RBC (0.00-0.01) x10^3u/L Lymphocytes % (24.0-44.0) % Monocytes % (0.0-12.0) % Eosinophils % (0.00-5.0) % Basophils % (0.0-0.4) % Absolute Granulocytes (1.4-6.9) x10^3/uL Basophils # (0-0.4) x10^3/uL PT (9.4-12.5) SECONDS INR (0.8-3.0) Puncture Site LEFT BRACHIAL pCO2 52 H (35-45) mmHg pO2 135 H* (75-100) mmHg Base Excess 18.8 H (-2.0-2.0) O2 Saturation 96.7 (94-100) g/dF ABG pH 7.53 H (7.35-7.45) ABG HCO3 43.5 H* (22-28) ABG O2 Sat (Measured) 99.4 (95-100) % Bhaskar Test NOT APPLICABLE A-a Gradient 28 a/A Ratio 0.83 Hemoglobin 8.3 Carboxyhemoglobin 1.6 (0.0-6.9) % THgb Methemoglobin 1.0 L (1.4-1.5) % Temperature 37.0 C POC O2 Flow Rate 32 % Sodium (137-145) mmol/L Potassium 3.6 (3.5-5.1) mmol/L Chloride (98-107) mmol/L Carbon Dioxide (22-30) mmol/L Anion Gap (5-15) MEQ/L BUN (7-17) mg/dL Creatinine (0.52-1.04) mg/dL Estimated GFR ML/MIN Glucose (74-106) mg/dL POC Glucometer 111 H (74 to 106) mg/dL Calcium (8.4-10.2) mg/dL Iron (37-170) ug/dL TIBC (265-462) ug/dL Iron Saturation (20-39) % Ferritin (11.1-264) ng/mL Total Bilirubin (0.2-1.3) mg/dL AST (14-36) U/L ALT (0-35) U/L Alkaline Phosphatase (38-126) U/L NT-Pro-B Natriuret Pep (<300) pg/mL Serum Total Protein (6.3-8.2) g/dL Albumin (3.5-5.0) g/dL Prealbumin 6.90 L (17.6-36.0) mg/dL Vitamin B12 (239-931) pg/mL Folic Acid (2.76 - >20) ng/mL ABO Group Rh Factor Antibody Screen (NEGATIVE) Crossmatch (COMPATIBLE) 04/27/23 04/27/23 04/27/23 Range/Units 18:36 18:36 21:20 WBC (4.0-10.5) x10^3/uL RBC (4.1-5.4) x10^6/uL Hgb (12.0-16.0) g/dL Hct (35-47) % MCV (78-100) fL MCH (26-32) pg MCHC (32-36) g/dL RDW (11.5-14.0) % Plt Count (150-450) x10^3/uL MPV (7.5-11.0) fL Gran % (36.0-66.0) % Immature Gran % (Auto) (0.00-0.4) % Nucleat RBC Rel Count (0.00-0.1) % Eos # (Auto) (0-0.5) x10^3/uL Immature Gran # (Auto) (0.00-0.03) x10^3u/L Absolute Lymphs (auto) (1.0-4.6) x10^3/uL Absolute Monos (auto) (0.0-1.3) x10^3/uL Absolute Nucleated RBC (0.00-0.01) x10^3u/L Lymphocytes % (24.0-44.0) % Monocytes % (0.0-12.0) % Eosinophils % (0.00-5.0) % Basophils % (0.0-0.4) % Absolute Granulocytes (1.4-6.9) x10^3/uL Basophils # (0-0.4) x10^3/uL PT (9.4-12.5) SECONDS INR (0.8-3.0) Puncture Site pCO2 (35-45) mmHg pO2 (75-100) mmHg Base Excess (-2.0-2.0) O2 Saturation (94-100) g/dF ABG pH (7.35-7.45) ABG HCO3 (22-28) ABG O2 Sat (Measured) (95-100) % Bhaskar Test A-a Gradient a/A Ratio Hemoglobin Carboxyhemoglobin (0.0-6.9) % THgb Methemoglobin (1.4-1.5) % Temperature C POC O2 Flow Rate % Sodium (137-145) mmol/L Potassium (3.5-5.1) mmol/L Chloride (98-107) mmol/L Carbon Dioxide (22-30) mmol/L Anion Gap (5-15) MEQ/L BUN (7-17) mg/dL Creatinine (0.52-1.04) mg/dL Estimated GFR ML/MIN Glucose (74-106) mg/dL POC Glucometer 111 H (74 to 106) mg/dL Calcium (8.4-10.2) mg/dL Iron (37-170) ug/dL TIBC (265-462) ug/dL Iron Saturation (20-39) % Ferritin (11.1-264) ng/mL Total Bilirubin (0.2-1.3) mg/dL AST (14-36) U/L ALT (0-35) U/L Alkaline Phosphatase (38-126) U/L NT-Pro-B Natriuret Pep (<300) pg/mL Serum Total Protein (6.3-8.2) g/dL Albumin (3.5-5.0) g/dL Prealbumin (17.6-36.0) mg/dL Vitamin B12 (239-931) pg/mL Folic Acid (2.76 - >20) ng/mL ABO Group Rh Factor Antibody Screen (NEGATIVE) Crossmatch COMPATIBLE COMPATIBLE (COMPATIBLE) 04/27/23 04/27/23 Range/Units Unknown Unknown WBC (4.0-10.5) x10^3/uL RBC (4.1-5.4) x10^6/uL Hgb (12.0-16.0) g/dL Hct (35-47) % MCV (78-100) fL MCH (26-32) pg MCHC (32-36) g/dL RDW (11.5-14.0) % Plt Count (150-450) x10^3/uL MPV (7.5-11.0) fL Gran % (36.0-66.0) % Immature Gran % (Auto) (0.00-0.4) % Nucleat RBC Rel Count (0.00-0.1) % Eos # (Auto) (0-0.5) x10^3/uL Immature Gran # (Auto) (0.00-0.03) x10^3u/L Absolute Lymphs (auto) (1.0-4.6) x10^3/uL Absolute Monos (auto) (0.0-1.3) x10^3/uL Absolute Nucleated RBC (0.00-0.01) x10^3u/L Lymphocytes % (24.0-44.0) % Monocytes % (0.0-12.0) % Eosinophils % (0.00-5.0) % Basophils % (0.0-0.4) % Absolute Granulocytes (1.4-6.9) x10^3/uL Basophils # (0-0.4) x10^3/uL PT (9.4-12.5) SECONDS INR (0.8-3.0) Puncture Site pCO2 (35-45) mmHg pO2 (75-100) mmHg Base Excess (-2.0-2.0) O2 Saturation (94-100) g/dF ABG pH (7.35-7.45) ABG HCO3 (22-28) ABG O2 Sat (Measured) (95-100) % Bhaskar Test A-a Gradient a/A Ratio Hemoglobin Carboxyhemoglobin (0.0-6.9) % THgb Methemoglobin (1.4-1.5) % Temperature C POC O2 Flow Rate % Sodium (137-145) mmol/L Potassium (3.5-5.1) mmol/L Chloride (98-107) mmol/L Carbon Dioxide (22-30) mmol/L Anion Gap (5-15) MEQ/L BUN (7-17) mg/dL Creatinine (0.52-1.04) mg/dL Estimated GFR ML/MIN Glucose (74-106) mg/dL POC Glucometer (74 to 106) mg/dL Calcium (8.4-10.2) mg/dL Iron 21 L (37-170) ug/dL TIBC 294 (265-462) ug/dL Iron Saturation 7 L (20-39) % Ferritin (11.1-264) ng/mL Total Bilirubin (0.2-1.3) mg/dL AST (14-36) U/L ALT (0-35) U/L Alkaline Phosphatase (38-126) U/L NT-Pro-B Natriuret Pep (<300) pg/mL Serum Total Protein (6.3-8.2) g/dL Albumin (3.5-5.0) g/dL Prealbumin (17.6-36.0) mg/dL Vitamin B12 485 (239-931) pg/mL Folic Acid (2.76 - >20) ng/mL ABO Group Rh Factor Antibody Screen (NEGATIVE) Crossmatch (COMPATIBLE) Assessment/Plan (1) HTN (hypertension) Current Visit: Yes Status: Acute Assessment & Plan: -Continue home medications, monitor daily, adjustments as appropriate 04/28: -Stable Code(s): I10 - ESSENTIAL (PRIMARY) HYPERTENSION (2) CHF (congestive heart failure) Current Visit: Yes Status: Acute Assessment & Plan: -Continue home meds as appropriate -No recent echo -Patient states she followed previously with [facility] cardiology, unsure who -Does not appear to be in exacerbation, LLE with compression dressing 04/28: -ECHO -consider -Continue torsemide/spironolactone Code(s): I50.9 - HEART FAILURE, UNSPECIFIED (3) Anemia Current Visit: No Status: Acute Assessment & Plan: -CBC daily, replace if hgb <7 -iron studies 04/28: -Hgb at 7.9, iron sat at 7%, pt scheduled for surgery today, will transfuse per podiatry -Venofer x 5 doses or until stay complete, will follow with heme OP Code(s): D64.9 - ANEMIA, UNSPECIFIED (4) Generalized weakness Current Visit: No Status: Acute Assessment & Plan: -Due to immobility/deconditioning with Non-weightbearing status -Consider PT eval if okay with podiatry Code(s): R53.1 - WEAKNESS (5) ANGIE (obstructive sleep apnea) Current Visit: No Status: Acute Assessment & Plan: -Patient states she is supposed to use CPAP but does better with NC oxygen Code(s): G47.33 - OBSTRUCTIVE SLEEP APNEA (ADULT) (PEDIATRIC) (6) Diabetes mellitus Current Visit: No Status: Chronic Qualifiers: Diabetes mellitus type: type 2 Diabetes mellitus custodial insulin use: with custodial use Diabetes mellitus complication status: with other specified complication Qualified Code(s): E11.69 - Type 2 diabetes mellitus with other specified complication; Z79.4 - watermelon inspector (current) use of insulin Assessment & Plan: -SSI -ADA diet -A1C -Promote good glycemic control for healing/advised weight loss Code(s): E11.9 - TYPE 2 DIABETES MELLITUS WITHOUT COMPLICATIONS (7) History of ankle surgery Current Visit: Yes Status: Acute Assessment & Plan: -prior right ankle repair, scheduled for extensive surgical repair/graft 04/28/[address] Soto -Continue dapto as directed VTE: when okay with podiatry PPI: protonix Dispo: 3-5 days Next of Kin: Valeri Buckner (parent) [phone] Code(s): I10 - ESSENTIAL (PRIMARY) HYPERTENSION (2) CHF (congestive heart failure) Current Visit: Yes Status: Acute Code(s): I50.9 - HEART FAILURE, UNSPECIFIED (3) Anemia Current Visit: No Status: Acute Code(s): D64.9 - ANEMIA, UNSPECIFIED (4) Generalized weakness Current Visit: No Status: Acute Code(s): R53.1 - WEAKNESS (5) ANGIE (obstructive sleep apnea) Current Visit: No Status: Acute Code(s): G47.33 - OBSTRUCTIVE SLEEP APNEA (ADULT) (PEDIATRIC) (6) Diabetes mellitus Current Visit: No Status: Chronic Qualifiers: Diabetes mellitus type: type 2 Diabetes mellitus watermelon harvesting supervisor insulin use: with watermelon harvesting supervisor use Diabetes mellitus complication status: with other specified complication Qualified Code(s): E11.69 - Type 2 diabetes mellitus with other specified complication; Z79.4 - watermelon inspector (current) use of insulin Code(s): E11.9 - TYPE 2 DIABETES MELLITUS WITHOUT COMPLICATIONS (7) History of ankle surgery Current Visit: Yes Status: Acute Code(s): Z98.890 - OTHER SPECIFIED POSTPROCEDURAL STATES
[2023-04-28 05:25] LABS: ALBUMIN 2.9 g/dL (3.5-5.0); BILIRUBIN,TOTAL 0.6 mg/dL (0.2-1.3); EST GLOMERULAR FILTRATION RATE 64.5 ML/MIN; Potassium 3.4 mmol/L (3.5-5.1); Total Protein 7.8 g/dL (6.3-8.2)
[2023-04-28 05:33] LABS: ANION GAP 10.4 MEQ/L (5-15)
[2023-04-28 05:37] LABS: Slide Review 1 YES
[2023-04-28] MEDS ORDERED: Klor Con PO ONE (07:11)
[2023-04-28] MEDS: DAPTOMYCIN IV SCH (09:19)
[2023-04-28] MEDS: SODIUM CHLORIDE FLUSH IV SCH (09:19)
[2023-04-28] MEDS: Sodium Chloride 0.9% 1000 ML 1,000 ML IV SCH (09:49)
[2023-04-28] MEDS ORDERED: MAGNESIUM SULF 2 G/50 ML BAG 2 GM/50 ML PIGGYBACK IV ONE (10:10)
[2023-04-28] MEDS ORDERED: Marcaine Mpf 0.5% Vial 30 Ml ONE (10:24)
[2023-04-28] MEDS ORDERED: Xylocaine 1% Vial 30 ML PF IJ ONE (10:24)
[2023-04-28] MEDS ORDERED: GARAMYCIN INJ ONE (10:27)
[2023-04-28] MEDS ORDERED: VANCOCIN INJECTION IV ONE (10:27)
[2023-04-28] MEDS ORDERED: Versed 2 MG/2 ML Injection ONE (10:49)
[2023-04-28] MEDS ORDERED: Zemuron 100 MG/10 ML ONE ×6 (10:49→16:54)
[2023-04-28] MEDS ORDERED: SUBLIMAZE 100 MCG/2 ML ONE ×3 (10:49→17:49)
[2023-04-28] MEDS ORDERED: Amidate 20 MG/10 ML IV ONE (10:49)
[2023-04-28] MEDS ORDERED: Xylocaine-Mpf 2% 5 Ml Vial ONE (11:00)
[2023-04-28] MEDS ORDERED: Sodium Chloride 0.9% 1000 ML 1,000 ML ONE ×3 (11:58→18:13)
[2023-04-28] MEDS ORDERED: KEFZOL 1 GM ONE (12:14)
[2023-04-28] MEDS: Klor Con PO SCH ×2 (12:37→22:54)
[2023-04-28] MEDS: Protonix 40MG Tablet PO SCH ×2 (12:37→22:54)
[2023-04-28] MEDS: Aldactone 25 MG PO SCH (12:37)
[2023-04-28] MEDS: DEMADEX 20 MG PO SCH ×2 (12:37→16:35)
[2023-04-28] MEDS ORDERED: PHENYLEPHRINE HCL ONE ×3 (12:46→22:32)
[2023-04-28] MEDS ORDERED: Sodium Chloride 0.9% 500 ML 500 ML IV ONE (12:58)
[2023-04-28 13:07] LABS: A-aADO2 160; ABG HEMOGLOBIN 8.1; ABG POTASSIUM 3.9 (3.5-5.1); ARTERIAL BLOOD GAS BASE EXCESS 17.7 (-2.0-2.0); ARTERIAL BLOOD GAS FIO2 60 %; ARTERIAL BLOOD GAS PCO2 44 mmHg (35-45); ARTERIAL BLOOD GAS PO2 213 mmHg (75-100); CARBOXYHEMOGLOBIN 1.5 % THgb (0.0-6.9); HCO3- 41.3 (22-28); HGB O2 SAT 97.1 g/dF (94-100); Methhemoglobin 1.3 % (1.4-1.5); paO2 pAO1 0.57
[2023-04-28 13:08] LABS: ABG SITE ALINE; ARTERIAL BLOOD GAS pH 7.58 (7.35-7.45)
[2023-04-28 15:41] LABS: A-aADO2 152; ABG HEMOGLOBIN 8.3; ABG POTASSIUM 3.8 (3.5-5.1); ABG SITE ARTLINE; ARTERIAL BLD GAS O2 SATURATION 99.6 % (95-100); ARTERIAL BLOOD GAS FIO2 60 %; ARTERIAL BLOOD GAS PCO2 42 mmHg (35-45); ARTERIAL BLOOD GAS PO2 223 mmHg (75-100); ARTERIAL BLOOD GAS VENT MODE A/C; ARTERIAL BLOOD GAS pH 7.57 (7.35-7.45); CARBOXYHEMOGLOBIN 1.6 % THgb (0.0-6.9); HCO3- 38.5 (22-28); paO2 pAO1 0.59
[2023-04-28] MEDS ORDERED: BRIDION 200MG/2ML IV ONE (17:56)
[2023-04-28] MEDS ORDERED: Zofran 4 MG/2 ML VIAL ONE (17:56)
[2023-04-28] MEDS ORDERED: Dextrose 5%/Water IV Soln. 250 ML 250 ML IV ONE (18:54)
[2023-04-28 19:00] LABS: A-aADO2 64; ABG HEMOGLOBIN 6.7; ABG POTASSIUM 3.6 (3.5-5.1); ABG SITE ARTLINE; ARTERIAL BLD GAS O2 SATURATION 99.4 % (95-100); ARTERIAL BLOOD GAS FIO2 36 %; ARTERIAL BLOOD GAS PCO2 52 mmHg (35-45); ARTERIAL BLOOD GAS PO2 128 mmHg (75-100); ARTERIAL BLOOD GAS pH 7.45 (7.35-7.45); CARBOXYHEMOGLOBIN 1.9 % THgb (0.0-6.9); HCO3- 36.1 (22-28); HGB O2 SAT 96.3 g/dF (94-100); Methhemoglobin 1.2 % (1.4-1.5); paO2 pAO1 0.67
[2023-04-28 19:05] LABS: Hematocrit 20.1 % (35-47)
[2023-04-28] MEDS ORDERED: Compazine 10 MG/2 ML ONE (19:09)
[2023-04-28 19:14] LABS: ALBUMIN 2.1 g/dL (3.5-5.0); ANION GAP 6.7 MEQ/L (5-15); BILIRUBIN,TOTAL 0.6 mg/dL (0.2-1.3); Calcium 7.7 mg/dL (8.4-10.2); Creatinine 1 0.97 mg/dL (0.52-1.04); EST GLOMERULAR FILTRATION RATE 66.9 ML/MIN; MAGNESIUM 1.7 mg/dL (1.6-2.3); PHOSPHOROUS 4.3 mg/dL (2.5-4.5); Potassium 3.6 mmol/L (3.5-5.1)
[2023-04-28 19:21] LABS: Hemoglobin 5.9 g/dL (12.0-16.0)
[2023-04-28 20:11] LABS: Appearance Clear (Clear); Bacteria None Seen /HPF (None Seen); Bilirubin Negative (Negative); Blood Negative (Negative); Epithelial Cells None Seen /HPF (None Seen); Glucose, Urine Negative (Negative); Hyaline Casts NONE SEEN /LPF (0-2); Ketones Negative (Negative); Leukocyte Esterase Negative (Negative); Nitrite Negative (Negative); Protein,Urine Dip Negative (Negative); RBC 0-2 /HPF (0-5)
--- NOTE | 2023-04-28 20:20 | XRAY ---
Indication: Right foot partial tibial osteotomy, talectomy, partial calcanectomy, tibial talocalcaneal arthrodesis, medium column arthrodesis. Intraoperative fluoroscopy provided for 15 minutes 6 seconds. 43 images submitted for interpretation demonstrates revision of previous ankle reconstructive surgery. Last image exchanger previous ankle prosthesis with new fixation plate/screws. New posterior calcaneus screw with tip projecting base 3rd metatarsal. Also new long posterior ankle screw terminating head 1st metatarsal. Correlate with intraoperative findings/report.
[2023-04-28] MEDS: DEXTROSE IV PRN ×2 (20:30→22:48)
[2023-04-28] MEDS ORDERED: PHENYLEPHRINE HCL 10 MG in Dextrose 5%/Water IV Soln. 250 ML 249 ML IV PRN (20:30)
[2023-04-28] MEDS: PHENYLEPHRINE HCL IV PRN ×2 (20:30→22:48)
[2023-04-28] MEDS: WATER IV PRN ×2 (20:30→22:48)
[2023-04-28] MEDS ORDERED: ZOCOR 20MG ONE (22:35)
[2023-04-29] MEDS: Sodium Chloride 0.9% 1000 ML 1,000 ML IV SCH ×3 (00:09→17:09)
[2023-04-29] MEDS ORDERED: LIPITOR 40MG ONE (00:13)
[2023-04-29] MEDS: LIPITOR 40MG PO SCH ×2 (00:30→21:13)
[2023-04-29] MEDS ORDERED: PHENYLEPHRINE HCL ONE (02:48)
[2023-04-29] MEDS: HYDROCODONE-ACETAMIN 10-325 MG PO SCH ×8 (04:00→19:50)
[2023-04-29 04:10] LABS: Hematocrit 25.9 % (35-47)
[2023-04-29] MEDS: WATER IV PRN (04:20)
[2023-04-29] MEDS: DEXTROSE IV PRN (04:20)
[2023-04-29] MEDS: PHENYLEPHRINE HCL IV PRN (04:20)
--- NOTE | 2023-04-29 05:18 | PCM.NOTE ---
Date and Time: 04/29/23 0517 Subjective Assessment: HPI: Ms. David is a 58 year old female with a history of DM, HTN, obesity, GERD, neuropathy, CHF, and chronic anemia Patient of Dr. Soto admitted for surgical repair/graft of her right ankle scheduled for 04/28/23. On 3L of oxygen, but unclear as to why, patient states mostly due to anxiety, she does have h/o ANGIE and is supposed to use CPAP but does better with NC oxygen. Patient has a history of prior right foot fracture status post repair with a nail. However, patient had difficulty keeping her weight off of her foot, leading to wound dehiscence and subsequent outpatient surgery for removal of nail and placement of an external fixator. She has been receiving Daptomycin at [facility] where she resides via PICC placed in the [facility]. She is immobile due to her non-weight bearing status. The hospitalist team has been consulted for medical management. Patient denies fever,cough, sob, cp, abdominal pain, KERR, dizziness, N/V/D. 04/28/23: Met with patient bedside. No overnight events noted. Endorses RLE pain at 7/10 otherwise no complaints. Spoke with Dr. Soto regarding Hgb of 7.9, hold blood transfusion for now, will replace in surgery if needed. She does have an iron sat of 7% for which IV will be initiated. Patient has been advised that she will need referral to hematology on d/c to manage her chronic iron deficiency anemia. Denies fever,cough, sob, cp, abdominal pain, KERR, dizziness, N/V/D. 04/29/23: Met with patient bedside. S/P PODS#1 extensive right ankle repair per Dr. Soto. Ventillator discontinued. Patient now at baseline oxygen 3L. She was on neosynephrine for hypotension, but this has now been discontinued. BP still mildly soft. Hgb at 7.2 this morning, 1 unit of blood given. She is responsive and requesting diet. Endorses 7/10 pain to the RLE. Denies fever,cough, sob, cp, abdominal pain, KERR, dizziness, N/V/D. - Review of Systems Constitutional: Fatigue Eyes: No Symptoms Ears, Nose, & Throat: No Symptoms Respiratory: Short Of Breath (on her 3L baseline oxygen) Cardiac: No Symptoms Abdominal/Gastrointestinal: No Symptoms Genitourinary Symptoms: No Symptoms Musculoskeletal: Joint Pain (RLE 7/10) Skin: Other (BLE edema/compression dressing to left, surgical incision to right with dressing/ayad bandage) Neurological: No Symptoms Psychological: No Symptoms Endocrine: No Symptoms Hematologic/Lymphatic: Anemia Objective Exam General Appearance: no apparent distress Neurologic Exam: alert, oriented x 3, cooperative Skin Exam: pale Wound Assessment: Skin/Wound Assessment Wound/Incision Assessment Start: 04/27/23 16:38 Text: Status: Active Freq: Q6H Protocol: Document 04/29/23 05:05 LM (Rec: 04/29/23 05:05 LM [id number]) Wound/Incision Assessment Right Foot Wound Assessment Shift Assessment Comment surgical wound with surgical dressing cdi Wound Photo Photo Taken No Eye Exam: PERRL Ears, Nose, Throat Exam: normal ENT inspection, moist mucous membranes Neck Exam: normal inspection Respiratory Exam: normal breath sounds, lungs clear Cardiovascular Exam: normal heart sounds, tachycardia Gastrointestinal/Abdomen Exam: soft, normal bowel sounds Extremity Exam: other (BLE edema/compression dressing to left, surgical incision to right with dressing/ayad bandage) Back Exam: normal inspection OBJECTIVE DATA Vital Signs: Vital Signs - 24 hr Temp Pulse Resp BP BP Pulse Ox 04/29/23 05:00 88 16 108/56 04/29/23 04:45 89 16 103/54 04/29/23 04:30 90 16 97/54 04/29/23 04:15 90 15 97/41 04/29/23 04:00 91 H 16 84/47 04/29/23 03:45 91 H 19 110/90 98 04/29/23 03:30 90 20 102/57 98 04/29/23 03:15 92 H 16 109/54 96 04/29/23 00:30 89 15 86/55 99 04/29/23 00:15 88 18 89/55 100 04/29/23 00:00 88 18 91/37 100 04/28/23 23:52 86 04/28/23 23:45 88 14 107/46 100 04/28/23 23:42 86 04/28/23 23:30 87 19 81/50 100 04/28/23 23:15 87 17 118/46 100 04/28/23 23:01 87 15 115/48 100 04/28/23 22:30 87 17 115/53 100 04/28/23 22:15 86 19 112/61 100 04/28/23 22:00 86 16 115/63 100 04/28/23 21:26 85 16 116/54 100 04/28/23 21:05 81 22 100 04/28/23 20:42 104/39 100 04/28/23 20:36 85 93/37 04/28/23 20:00 98.1 F 86 17 82/37 100 04/28/23 09:07 74 16 123/55 99 04/28/23 07:33 74 16 99 04/28/23 07:16 97.8 F 74 18 123/55 99 Pain Assessment - Last Documented Pain Intensity 8 Pain Scale Used 0-10 Pain Scale Intake and Output: Intake & Output 04/26/23 04/27/23 04/28/23 04/29/23 11:59 11:59 11:59 11:59 Intake Total 240 0 Balance 240 0 Weight 130.9 kg Lab Results: Lab Results-Last 24 Hours 04/27/23 04/27/23 04/28/23 Range/Units 18:36 18:36 04:55 WBC 3.7 L (4.0-10.5) x10^3/uL RBC 2.92 L (4.1-5.4) x10^6/uL Hgb 7.9 L (12.0-16.0) g/dL Hct 27.3 L (35-47) % MCV 93.5 (78-100) fL MCH 27.1 (26-32) pg MCHC 28.9 L (32-36) g/dL RDW 17.1 H (11.5-14.0) % Plt Count 122 L (150-450) x10^3/uL MPV 9.5 (7.5-11.0) fL Gran % 52.0 (36.0-66.0) % Immature Gran % (Auto) 0.3 (0.00-0.4) % Nucleat RBC Rel Count 0.0 (0.00-0.1) % Eos # (Auto) 0.15 (0-0.5) x10^3/uL Immature Gran # (Auto) 0.01 (0.00-0.03) x10^3u/L Absolute Lymphs (auto) 1.01 (1.0-4.6) x10^3/uL Absolute Monos (auto) 0.55 (0.0-1.3) x10^3/uL Absolute Nucleated RBC 0.00 (0.00-0.01) x10^3u/L Lymphocytes % 27.7 (24.0-44.0) % Monocytes % 15.1 H (0.0-12.0) % Eosinophils % 4.1 (0.00-5.0) % Basophils % 0.8 (0.0-0.4) % Absolute Granulocytes 1.90 (1.4-6.9) x10^3/uL Basophils # 0.03 (0-0.4) x10^3/uL Puncture Site pCO2 (35-45) mmHg pO2 (75-100) mmHg Base Excess (-2.0-2.0) O2 Saturation (94-100) g/dF ABG pH (7.35-7.45) ABG HCO3 (22-28) ABG O2 Sat (Measured) (95-100) % Bhaskar Test A-a Gradient a/A Ratio Hemoglobin Carboxyhemoglobin (0.0-6.9) % THgb Methemoglobin (1.4-1.5) % Temperature C POC O2 Flow Rate % Vent Mode Sodium (137-145) mmol/L Potassium (3.5-5.1) mmol/L Chloride (98-107) mmol/L Carbon Dioxide (22-30) mmol/L Anion Gap (5-15) MEQ/L BUN (7-17) mg/dL Creatinine (0.52-1.04) mg/dL Estimated GFR ML/MIN Glucose (74-106) mg/dL POC Glucometer (74 to 106) mg/dL Calcium (8.4-10.2) mg/dL Phosphorus (2.5-4.5) mg/dL Magnesium (1.6-2.3) mg/dL Total Bilirubin (0.2-1.3) mg/dL AST (14-36) U/L ALT (0-35) U/L Alkaline Phosphatase (38-126) U/L Serum Total Protein (6.3-8.2) g/dL Albumin (3.5-5.0) g/dL Urine Color (Yellow) Urine Appearance (Clear) Urine pH (4.6-8.0) Ur Specific Marshall (1.005-1.030) Urine Protein (Negative) Urine Glucose (UA) (Negative) mg/dL Urine Ketones (Negative) Urine Blood (Negative) Urine Nitrite (Negative) Urine Bilirubin (Negative) Urine Urobilinogen (0.2) mg/dL Ur Leukocyte Esterase (Negative) U Hyaline Cast (Auto) (0-2) /LPF Urine Microscopic RBC (0-5) /HPF Urine Microscopic WBC (0-5) /HPF Ur Epithelial Cells (None Seen) /HPF Urine Bacteria (None Seen) /HPF Slides for Path Review YES Crossmatch COMPATIBLE COMPATIBLE (COMPATIBLE) 04/28/23 04/28/23 04/28/23 Range/Units 04:55 04:55 07:04 WBC (4.0-10.5) x10^3/uL RBC (4.1-5.4) x10^6/uL Hgb (12.0-16.0) g/dL Hct (35-47) % MCV (78-100) fL MCH (26-32) pg MCHC (32-36) g/dL RDW (11.5-14.0) % Plt Count (150-450) x10^3/uL MPV (7.5-11.0) fL Gran % (36.0-66.0) % Immature Gran % (Auto) (0.00-0.4) % Nucleat RBC Rel Count (0.00-0.1) % Eos # (Auto) (0-0.5) x10^3/uL Immature Gran # (Auto) (0.00-0.03) x10^3u/L Absolute Lymphs (auto) (1.0-4.6) x10^3/uL Absolute Monos (auto) (0.0-1.3) x10^3/uL Absolute Nucleated RBC (0.00-0.01) x10^3u/L Lymphocytes % (24.0-44.0) % Monocytes % (0.0-12.0) % Eosinophils % (0.00-5.0) % Basophils % (0.0-0.4) % Absolute Granulocytes (1.4-6.9) x10^3/uL Basophils # (0-0.4) x10^3/uL Puncture Site pCO2 (35-45) mmHg pO2 (75-100) mmHg Base Excess (-2.0-2.0) O2 Saturation (94-100) g/dF ABG pH (7.35-7.45) ABG HCO3 (22-28) ABG O2 Sat (Measured) (95-100) % Bhaskar Test A-a Gradient a/A Ratio Hemoglobin Carboxyhemoglobin (0.0-6.9) % THgb Methemoglobin (1.4-1.5) % Temperature C POC O2 Flow Rate % Vent Mode Sodium 139 (137-145) mmol/L Potassium 3.4 L (3.5-5.1) mmol/L Chloride 94 L (98-107) mmol/L Carbon Dioxide 38 H (22-30) mmol/L Anion Gap 10.4 (5-15) MEQ/L BUN 21 H (7-17) mg/dL Creatinine 1.00 (0.52-1.04) mg/dL Estimated GFR 64.5 ML/MIN Glucose 117 H (74-106) mg/dL POC Glucometer 115 H (74 to 106) mg/dL Calcium 9.0 (8.4-10.2) mg/dL Phosphorus (2.5-4.5) mg/dL Magnesium 1.5 L (1.6-2.3) mg/dL Total Bilirubin 0.60 (0.2-1.3) mg/dL AST 31 (14-36) U/L ALT 19 (0-35) U/L Alkaline Phosphatase 85 (38-126) U/L Serum Total Protein 7.8 (6.3-8.2) g/dL Albumin 2.9 L (3.5-5.0) g/dL Urine Color (Yellow) Urine Appearance (Clear) Urine pH (4.6-8.0) Ur Specific Marshall (1.005-1.030) Urine Protein (Negative) Urine Glucose (UA) (Negative) mg/dL Urine Ketones (Negative) Urine Blood (Negative) Urine Nitrite (Negative) Urine Bilirubin (Negative) Urine Urobilinogen (0.2) mg/dL Ur Leukocyte Esterase (Negative) U Hyaline Cast (Auto) (0-2) /LPF Urine Microscopic RBC (0-5) /HPF Urine Microscopic WBC (0-5) /HPF Ur Epithelial Cells (None Seen) /HPF Urine Bacteria (None Seen) /HPF Slides for Path Review Crossmatch (COMPATIBLE) 04/28/23 04/28/23 04/28/23 Range/Units 12:12 13:01 15:37 WBC (4.0-10.5) x10^3/uL RBC (4.1-5.4) x10^6/uL Hgb (12.0-16.0) g/dL Hct (35-47) % MCV (78-100) fL MCH (26-32) pg MCHC (32-36) g/dL RDW (11.5-14.0) % Plt Count (150-450) x10^3/uL MPV (7.5-11.0) fL Gran % (36.0-66.0) % Immature Gran % (Auto) (0.00-0.4) % Nucleat RBC Rel Count (0.00-0.1) % Eos # (Auto) (0-0.5) x10^3/uL Immature Gran # (Auto) (0.00-0.03) x10^3u/L Absolute Lymphs (auto) (1.0-4.6) x10^3/uL Absolute Monos (auto) (0.0-1.3) x10^3/uL Absolute Nucleated RBC (0.00-0.01) x10^3u/L Lymphocytes % (24.0-44.0) % Monocytes % (0.0-12.0) % Eosinophils % (0.00-5.0) % Basophils % (0.0-0.4) % Absolute Granulocytes (1.4-6.9) x10^3/uL Basophils # (0-0.4) x10^3/uL Puncture Site STEPHANIE ARTLINE pCO2 44 42 (35-45) mmHg pO2 213 H* 223 H* (75-100) mmHg Base Excess 17.7 H 15.0 H (-2.0-2.0) O2 Saturation 97.1 97.0 (94-100) g/dF ABG pH 7.58 H* 7.57 H* (7.35-7.45) ABG HCO3 41.3 H* 38.5 H* (22-28) ABG O2 Sat (Measured) 100.0 99.6 (95-100) % Bhaskar Test NOT APPLICABLE NOT APPLICABLE A-a Gradient 160 152 a/A Ratio 0.57 0.59 Hemoglobin 8.1 8.3 Carboxyhemoglobin 1.5 1.6 (0.0-6.9) % THgb Methemoglobin 1.3 L 1.0 L (1.4-1.5) % Temperature 37.0 37.0 C POC O2 Flow Rate 60 60 % Vent Mode A/C Sodium (137-145) mmol/L Potassium 3.9 3.8 (3.5-5.1) mmol/L Chloride (98-107) mmol/L Carbon Dioxide (22-30) mmol/L Anion Gap (5-15) MEQ/L BUN (7-17) mg/dL Creatinine (0.52-1.04) mg/dL Estimated GFR ML/MIN Glucose (74-106) mg/dL POC Glucometer (74 to 106) mg/dL Calcium (8.4-10.2) mg/dL Phosphorus (2.5-4.5) mg/dL Magnesium (1.6-2.3) mg/dL Total Bilirubin (0.2-1.3) mg/dL AST (14-36) U/L ALT (0-35) U/L Alkaline Phosphatase (38-126) U/L Serum Total Protein (6.3-8.2) g/dL Albumin (3.5-5.0) g/dL Urine Color Yellow (Yellow) Urine Appearance Clear (Clear) Urine pH 8.0 (4.6-8.0) Ur Specific Marshall 1.010 (1.005-1.030) Urine Protein Negative (Negative) Urine Glucose (UA) Negative (Negative) mg/dL Urine Ketones Negative (Negative) Urine Blood Negative (Negative) Urine Nitrite Negative (Negative) Urine Bilirubin Negative (Negative) Urine Urobilinogen 1.0 A (0.2) mg/dL Ur Leukocyte Esterase Negative (Negative) U Hyaline Cast (Auto) NONE SEEN (0-2) /LPF Urine Microscopic RBC 0-2 (0-5) /HPF Urine Microscopic WBC 3-5 (0-5) /HPF Ur Epithelial Cells None Seen (None Seen) /HPF Urine Bacteria None Seen (None Seen) /HPF Slides for Path Review Crossmatch (COMPATIBLE) 04/28/23 04/28/23 04/28/23 Range/Units 15:39 18:50 18:50 WBC (4.0-10.5) x10^3/uL RBC (4.1-5.4) x10^6/uL Hgb 5.9 L* D (12.0-16.0) g/dL Hct 20.1 L (35-47) % MCV (78-100) fL MCH (26-32) pg MCHC (32-36) g/dL RDW (11.5-14.0) % Plt Count (150-450) x10^3/uL MPV (7.5-11.0) fL Gran % (36.0-66.0) % Immature Gran % (Auto) (0.00-0.4) % Nucleat RBC Rel Count (0.00-0.1) % Eos # (Auto) (0-0.5) x10^3/uL Immature Gran # (Auto) (0.00-0.03) x10^3u/L Absolute Lymphs (auto) (1.0-4.6) x10^3/uL Absolute Monos (auto) (0.0-1.3) x10^3/uL Absolute Nucleated RBC (0.00-0.01) x10^3u/L Lymphocytes % (24.0-44.0) % Monocytes % (0.0-12.0) % Eosinophils % (0.00-5.0) % Basophils % (0.0-0.4) % Absolute Granulocytes (1.4-6.9) x10^3/uL Basophils # (0-0.4) x10^3/uL Puncture Site pCO2 (35-45) mmHg pO2 (75-100) mmHg Base Excess (-2.0-2.0) O2 Saturation (94-100) g/dF ABG pH (7.35-7.45) ABG HCO3 (22-28) ABG O2 Sat (Measured) (95-100) % Bhaskar Test A-a Gradient a/A Ratio Hemoglobin Carboxyhemoglobin (0.0-6.9) % THgb Methemoglobin (1.4-1.5) % Temperature C POC O2 Flow Rate % Vent Mode Sodium 138 (137-145) mmol/L Potassium 3.6 (3.5-5.1) mmol/L Chloride 101 (98-107) mmol/L Carbon Dioxide 35 H (22-30) mmol/L Anion Gap 6.7 (5-15) MEQ/L BUN 20 H (7-17) mg/dL Creatinine 0.97 (0.52-1.04) mg/dL Estimated GFR 66.9 ML/MIN Glucose 129 H (74-106) mg/dL POC Glucometer 104 (74 to 106) mg/dL Calcium 7.7 L (8.4-10.2) mg/dL Phosphorus 4.3 (2.5-4.5) mg/dL Magnesium 1.7 (1.6-2.3) mg/dL Total Bilirubin 0.60 (0.2-1.3) mg/dL AST 36 (14-36) U/L ALT 17 (0-35) U/L Alkaline Phosphatase 67 (38-126) U/L Serum Total Protein 6.0 L (6.3-8.2) g/dL Albumin 2.1 L (3.5-5.0) g/dL Urine Color (Yellow) Urine Appearance (Clear) Urine pH (4.6-8.0) Ur Specific Marshall (1.005-1.030) Urine Protein (Negative) Urine Glucose (UA) (Negative) mg/dL Urine Ketones (Negative) Urine Blood (Negative) Urine Nitrite (Negative) Urine Bilirubin (Negative) Urine Urobilinogen (0.2) mg/dL Ur Leukocyte Esterase (Negative) U Hyaline Cast (Auto) (0-2) /LPF Urine Microscopic RBC (0-5) /HPF Urine Microscopic WBC (0-5) /HPF Ur Epithelial Cells (None Seen) /HPF Urine Bacteria (None Seen) /HPF Slides for Path Review Crossmatch (COMPATIBLE) 04/28/23 04/28/23 04/29/23 Range/Units 18:55 20:26 01:00 WBC (4.0-10.5) x10^3/uL RBC (4.1-5.4) x10^6/uL Hgb 8.0 L D (12.0-16.0) g/dL Hct 25.9 L (35-47) % MCV (78-100) fL MCH (26-32) pg MCHC (32-36) g/dL RDW (11.5-14.0) % Plt Count (150-450) x10^3/uL MPV (7.5-11.0) fL Gran % (36.0-66.0) % Immature Gran % (Auto) (0.00-0.4) % Nucleat RBC Rel Count (0.00-0.1) % Eos # (Auto) (0-0.5) x10^3/uL Immature Gran # (Auto) (0.00-0.03) x10^3u/L Absolute Lymphs (auto) (1.0-4.6) x10^3/uL Absolute Monos (auto) (0.0-1.3) x10^3/uL Absolute Nucleated RBC (0.00-0.01) x10^3u/L Lymphocytes % (24.0-44.0) % Monocytes % (0.0-12.0) % Eosinophils % (0.00-5.0) % Basophils % (0.0-0.4) % Absolute Granulocytes (1.4-6.9) x10^3/uL Basophils # (0-0.4) x10^3/uL Puncture Site ARTLINE pCO2 52 H (35-45) mmHg pO2 128 H* (75-100) mmHg Base Excess 11.0 H (-2.0-2.0) O2 Saturation 96.3 (94-100) g/dF ABG pH 7.45 (7.35-7.45) ABG HCO3 36.1 H* (22-28) ABG O2 Sat (Measured) 99.4 (95-100) % Bhaskar Test NOT APPLICABLE A-a Gradient 64 a/A Ratio 0.67 Hemoglobin 6.7 L* Carboxyhemoglobin 1.9 (0.0-6.9) % THgb Methemoglobin 1.2 L (1.4-1.5) % Temperature 37.0 C POC O2 Flow Rate 36 % Vent Mode Sodium (137-145) mmol/L Potassium 3.6 (3.5-5.1) mmol/L Chloride (98-107) mmol/L Carbon Dioxide (22-30) mmol/L Anion Gap (5-15) MEQ/L BUN (7-17) mg/dL Creatinine (0.52-1.04) mg/dL Estimated GFR ML/MIN Glucose (74-106) mg/dL POC Glucometer 127 H (74 to 106) mg/dL Calcium (8.4-10.2) mg/dL Phosphorus (2.5-4.5) mg/dL Magnesium (1.6-2.3) mg/dL Total Bilirubin (0.2-1.3) mg/dL AST (14-36) U/L ALT (0-35) U/L Alkaline Phosphatase (38-126) U/L Serum Total Protein (6.3-8.2) g/dL Albumin (3.5-5.0) g/dL Urine Color (Yellow) Urine Appearance (Clear) Urine pH (4.6-8.0) Ur Specific Marshall (1.005-1.030) Urine Protein (Negative) Urine Glucose (UA) (Negative) mg/dL Urine Ketones (Negative) Urine Blood (Negative) Urine Nitrite (Negative) Urine Bilirubin (Negative) Urine Urobilinogen (0.2) mg/dL Ur Leukocyte Esterase (Negative) U Hyaline Cast (Auto) (0-2) /LPF Urine Microscopic RBC (0-5) /HPF Urine Microscopic WBC (0-5) /HPF Ur Epithelial Cells (None Seen) /HPF Urine Bacteria (None Seen) /HPF Slides for Path Review Crossmatch (COMPATIBLE) Radiology Exams: Radiology Procedures Category Date Time Status FLUOROSCOPY UP TO 1 HR Routine Exams 04/28/23 09:03 Taken FOOT (MINIMUM 3 VIEWS) Routine Exams 04/28/23 09:03 Completed Multi-Disciplinary Progress Notes: Multi-Disciplinary Progress Notes 04/28/23 11:28 Case Management Note by Ayaka Mclean S/Anu ALVAREZ AT [facility]- PATIENT CAN RETURN TO THEIR FACILITY AT ANY TIME WHEN MEDICALLY READY. Initialized on 04/28/23 11:28 - END OF NOTE Assessment/Plan (1) HTN (hypertension) Current Visit: Yes Status: Acute Assessment & Plan: -Continue home medications, monitor daily, adjustments as appropriate 04/28: -Stable 04/29: -soft, will hold bp meds today Code(s): I10 - ESSENTIAL (PRIMARY) HYPERTENSION (2) CHF (congestive heart failure) Current Visit: Yes Status: Acute Assessment & Plan: -Continue home meds as appropriate -No recent echo -Patient states she followed previously with [facility] cardiology, unsure who -Does not appear to be in exacerbation, LLE with compression dressing 04/28: -ECHO -consider -Continue torsemide/spironolactone 04/29: -Hold diuretics due to BP Code(s): I50.9 - HEART FAILURE, UNSPECIFIED (3) Anemia Current Visit: No Status: Acute Assessment & Plan: -CBC daily, replace if hgb <7 -iron studies 04/28: -Hgb at 7.9, iron sat at 7%, pt scheduled for surgery today, will transfuse per podiatry -Venofer x 5 doses or until stay complete, will follow with heme OP 04/29: -Venofer x 5 doses, will start today -1 unit LPRBC, will continue to monitor and replace <7 Code(s): D64.9 - ANEMIA, UNSPECIFIED (4) Generalized weakness Current Visit: No Status: Acute Assessment & Plan: -Due to immobility/deconditioning with Non-weightbearing status -Consider PT eval if okay with podiatry Code(s): R53.1 - WEAKNESS (5) ANGIE (obstructive sleep apnea) Current Visit: No Status: Acute Assessment & Plan: -Patient states she is supposed to use CPAP but does better with NC oxygen Code(s): G47.33 - OBSTRUCTIVE SLEEP APNEA (ADULT) (PEDIATRIC) (6) Diabetes mellitus Current Visit: No Status: Chronic Qualifiers: Diabetes mellitus type: type 2 Diabetes mellitus residential insulin use: with moth exterminator use Diabetes mellitus complication status: with other specified complication Qualified Code(s): E11.69 - Type 2 diabetes mellitus with other specified complication; Z79.4 - terminal supervisor (current) use of insulin Assessment & Plan: -SSI -ADA diet -A1C -Promote good glycemic control for healing/advised weight loss Code(s): E11.9 - TYPE 2 DIABETES MELLITUS WITHOUT COMPLICATIONS (7) History of ankle surgery Current Visit: Yes Status: Acute Assessment & Plan: -prior right ankle repair, scheduled for extensive surgical repair/graft 04/[address] Soto -Continue dapto as directed #NA -Creat trending up (mild), most likely due to hypovolemia, will continue to monitor VTE: when okay with podiatry PPI: protonix Dispo: 3-5 days Next of Kin: Valeri Buckner (parent) [phone] Code(s): I10 - ESSENTIAL (PRIMARY) HYPERTENSION Code(s): I10 - ESSENTIAL (PRIMARY) HYPERTENSION (2) CHF (congestive heart failure) Current Visit: Yes Status: Acute Code(s): I50.9 - HEART FAILURE, UNSPECIFIED (3) Anemia Current Visit: No Status: Acute Code(s): D64.9 - ANEMIA, UNSPECIFIED (4) Generalized weakness Current Visit: No Status: Acute Code(s): R53.1 - WEAKNESS (5) ANGIE (obstructive sleep apnea) Current Visit: No Status: Acute Code(s): G47.33 - OBSTRUCTIVE SLEEP APNEA (ADULT) (PEDIATRIC) (6) Diabetes mellitus Current Visit: No Status: Chronic Qualifiers: Diabetes mellitus type: type 2 Diabetes mellitus moth exterminator insulin use: with moth exterminator use Diabetes mellitus complication status: with other specified complication Qualified Code(s): E11.69 - Type 2 diabetes mellitus with other specified complication; Z79.4 - terminal supervisor (current) use of insulin Code(s): E11.9 - TYPE 2 DIABETES MELLITUS WITHOUT COMPLICATIONS (7) History of ankle surgery Current Visit: Yes Status: Acute Code(s): Z98.890 - OTHER SPECIFIED POSTPROCEDURAL STATES (8) NA (acute kidney injury) Current Visit: Yes Status: Acute Code(s): N17.9 - ACUTE KIDNEY FAILURE, UNSPECIFIED
[2023-04-29 05:29] LABS: Absolute Neutrophil Ct (ANC) 6.87 x10^3/uL (1.4-6.9); BASOPHIL % 0.6 % (0.0-0.4); Basophil (Absolute #) 0.06 x10^3/uL (0-0.4); Eosinophil (Absolute #) 0.11 x10^3/uL (0-0.5); Hematocrit 23.9 % (35-47); Hemoglobin 7.2 g/dL (12.0-16.0); IMMATURE GRAN # 0.06 x10^3u/L (0.00-0.03); IMMATURE GRAN % 0.6 % (0.00-0.4); Lymphocytes % 16.2 % (24.0-44.0); Mean Cell Volume 91.6 fL (78-100); Mean Corpuscular Hemoglobin 27.6 pg (26-32); Mean Corpuscular Hgb Concent. 30.1 g/dL (32-36); Mean Platelet Volume 9.9 fL (7.5-11.0); Monocyte (Absolute #) 1.68 x10^3/uL (0.0-1.3); Neutrophil % 65.6 % (36.0-66.0); Platelet Count 155 x10^3/uL (150-450); Red Blood Count 2.61 x10^6/uL (4.1-5.4); Red Cell Distribution Width 16.8 % (11.5-14.0); White Blood Count 10.5 x10^3/uL (4.0-10.5)
[2023-04-29 05:56] LABS: ALBUMIN 2.3 g/dL (3.5-5.0); ANION GAP 8.7 MEQ/L (5-15); BILIRUBIN,TOTAL 1.2 mg/dL (0.2-1.3); Calcium 7.6 mg/dL (8.4-10.2); Creatinine 1 1.13 mg/dL (0.52-1.04); EST GLOMERULAR FILTRATION RATE 55.7 ML/MIN; Potassium 4.1 mmol/L (3.5-5.1); Total Protein 6.3 g/dL (6.3-8.2)
[2023-04-29 07:15] LABS: Slide Review 1 YES
[2023-04-29] MEDS: Aldactone 25 MG PO SCH (08:37)
[2023-04-29] MEDS: DEMADEX 20 MG PO SCH ×2 (08:37→15:25)
[2023-04-29] MEDS: Klor Con PO SCH ×2 (08:37→21:13)
[2023-04-29] MEDS: DAPTOMYCIN IV SCH (08:48)
[2023-04-29] MEDS: SODIUM CHLORIDE FLUSH IV SCH (08:48)
[2023-04-29] MEDS: Protonix 40MG Tablet PO SCH ×2 (08:49→21:13)
[2023-04-29 09:40] LABS: CROSS MATCH (PRBC) COMPATIBLE (COMPATIBLE)
--- NOTE | 2023-04-29 09:52 | OP ---
SURGERY DATE/TIME: 04/28/2023 1113 PREOPERATIVE DIAGNOSES: 1) Charcot osteoarthropathy right ankle. 2) Trimalleolar fracture equella, right ankle. 3) History of osteomyelitis, right ankle. 4) Diabetes mellitus. 5) Diabetic peripheral neuropathy. 6) Instability with gait. 7) Painful retained orthopedic hardware in situ. 8) Diabetic foot ulcer. 9) Complex deformity of right ankle. POSTOPERATIVE DIAGNOSES: 1) Charcot osteoarthropathy right ankle. 2) Trimalleolar fracture equella, right ankle. 3) History of osteomyelitis, right ankle. 4) Diabetes mellitus. 5) Diabetic peripheral neuropathy. 6) Instability with gait. 7) Painful retained orthopedic hardware in situ. 8) Diabetic foot ulcer. 9) Complex deformity of right ankle. PROCEDURES: 1) Partial tibial osteoectomy 2) Removal of hardware. 3) Partial talectomy. 4) Partial calcanectomy. 5) Tibiotalar calcaneal arthrodesis. 6) Medial column arthrodesis. 7) Calcaneocuboid arthrodesis. 8) Delayed primary closure of lateral and plantar diabetic foot wound. SURGEON: Heriberto Soto DPM. SHAFTING CLEANER: None. ANESTHESIA: General with a postoperative local block at the level of the right ankle consisting of 30 cc of 1:1 mixture of 1% lidocaine plain and 0.5% bupivacaine plain. HEMOSTASIS: Thigh tourniquet set to 325 mm of Mercury for 120 total tourniquet minutes. ESTIMATED BLOOD LOSS: Approximately 250 cc. MATERIALS: [id number] 3D talus custom made, 40 cc of bonus triad, a 8.0 x 125 fully threaded cannulated screw, a 5.0 x 100 mm fully threaded cannulated screw, a 4.0 x 40 fully threaded two - 5.0 x 28 and a 5.0 x 40 locking screw, Vancomycin and gentamicin powder, Suturegard, 2-0 Vicryl, 2-0 Nylon, 3-0 Nylon and surgical tha. INJECTABLES: 30 cc of 1:1 mixture of 1% lidocaine plain and 0.5% bupivacaine plain injected in an ankle block-type fashion postoperatively. INDICATION FOR SURGERY: Amelia is a 58-year-old female very well known to my service. Earlier on this year the patient had an ankle fracture as a result of a slip and fall. As a result, the patient did have a trimalleolar fracture. As a result, the patient was seen and had an A1C of 14 with significant venous insufficiency and venous insufficiency ulcerations. The patient was talked to about the risks and complications of immediately proceeding with surgical intervention. At that time the risks outweighed the benefits for proceeding until her A1C was under control and her venous insufficiency was better controlled at that time. 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 As a result of the swelling, the patient did have some infection which resulted in some osteomyelitis and noncompliance throughout the course has resulted in failure of initial index procedure and a nail which with weightbearing had broken through the lateral wall of the calcaneus which limited our options due to the significant loss of the talus and the lateral wall of the calcaneus as well as significant deformity of the distal tibia that nailing and plating were out of the equation. The only consideration that was made was a 3D custom cage for an attempt at limb salvage. We have recently gotten bone biopsies which demonstrated clean margins and negative bone infection at this time. All risks, complications and benefits had been discussed with the patient at length. In particular, this is likely the last attempt she has as a salvage of her lower extremity. The patient understands this risk. The patient has been patient and wishes to proceed with surgical intervention with all the caution. Plenty of time was allowed for her and her family to ask questions which were answered to their apparent satisfaction. No guarantees were provided as to the outcome as this is a salvage case. It is at this time we decided to proceed. DESCRIPTION OF PROCEDURE AND FINDINGS: The patient is brought into the OR and placed on the OR table in the supine position. At this time general anesthesia was administered. A well-padded thigh tourniquet was applied to the patient's right thigh which was set to 325 mm of Mercury and then the right lower extremity was prepped and draped in the typical sterile fashion. At this time, attention was directed to the lateral aspect of the right ankle where through the initial wound an excision of the wound was performed gaining access to the lateral compartment of the leg. The antibiotic spacer was then removed and the hardware stabilizing leg was then removed. Some of the antibiotic coating attached to the Steinmann pin was stuck within the medullary canal so care was taken to clean out the medullary canal utilizing rongeurs and curette. At this time copious amounts of sterile saline were utilized to flush the surgical site. From this standpoint, the talectomy was performed removing the talar head from the articulation site of the talonavicular joint as well as the calcaneocuboid or the remaining articulation of the calcaneus with the cuboid which was attached to the lateral wall fragment that had fractured. The lateral wall of the calcaneus was then removed in the calcanectomy portion of the procedure this was cut utilizing a guide provided by [employer] so to prevent over resection. A cut guide was made for the portion of the distal tibia which was then resected in correlation with [employer]'s printed guidelines. Following this, copious amounts of sterile saline were utilized to flush the surgical site. Bactisure was utilized to clean out any residual colonization of bacteria and then sterile saline was utilized to flush the site. Joint prep took place at this time prepping the posterior aspect of the navicular posterior aspect of the cuboid and utilizing a 2 mm drill, an osteotome and a mallet as well as curette to increase the surface area on the surfaces. A 2 mm drill, curette and osteotome were used on the distal aspect of the tibia to promote in growth. At this time, the implant was introduced into the deficit gaining access into the intramedullary component fixating the distal aspect of the tibia first for stability purposes and then the medial column arthrodesis was performed by deeming a 8.0 x 125 mm fully threaded screw through the implant posteriorly into the first ray for stabilization. Following this, a screw was placed across the calcaneus to the cuboid measuring 5.0 x 100 fully threaded cannulated screw. The sites before compression were packed with copious amounts of graft, 40 cc in total of Bonus Triad. The trabeculation of the graft did have porous material to promote ingrowth circumferentially. We packed every crevice that we could with the Bonus Triad before compressing into the surrounding arthrodesis site. From that standpoint, the calcaneal pins were then thrown in an oblique trajectory measuring 4.0 x 40, two - 5.0 x 28 and then a 5.0 x 40. This was stressed and deemed to be in an adequate position. As stated above, the 40 cc of Bonus Triad were completely used to pack the sites of arthrodesis as well as the surrounding aspect of the custom cage. Following this, a delayed primary closure was performed at the plantar heel wound as well as the surgical incisions. Suturegard was utilized on all sites to relieve tension off of the surgical incisions. For the ankle surgical tha were utilized in combination with the Suturegard as well as 2-0 Vicryl to coapt the edges on the plantar aspect of the foot. Suturegard as well as 2-0 and 3-0 Vicryl were utilized to coapt the skin edges in everted-type fashion utilizing a horizontal mattress and simple interrupted. From that standpoint, the leg was cleansed and a dressing consisting of iodine, Adaptic, 4x4, Kerlix and a well-padded posterior splint with Sugar-Tong was applied to the patient's right ankle with the foot orthogonal relative to longitudinal aspect of the leg. The patient was then reversed from anesthesia and returned to the postoperative anesthesia care unit with vital signs stable and vascular status intact. The patient handled the anesthesia as well as the procedure without significant complication. Postoperative orders as indicated in the patient's inpatient chart.
[2023-04-29] MEDS ORDERED: Venofer 100 MG/5 ML*** 200 MG in Sodium Chloride 0.9% 100 ML IV SCH (10:00)
--- NOTE | 2023-04-29 13:07 | XRAY ---
CLINICAL HISTORY:picc line placement COMPARISON:11/21/2022. TECHNIQUE:X-ray chest AP view (1 view). FINDINGS: Possible infiltrates are seen in the right infra hilar region. Few nodular shadows were seen in the left perihilar region, likely representing the end of vascular shadows. Mild bilateral pulmonary vascular congestion is seen. Increase in transverse cardiac diameter. Unfolding of the aorta seen with calcification of the thoracic aorta. Both costophrenic angles are clear. Visualized bones show mild degenerative changes. PICC line seen on the left side with its tip at cavoatrial junction, in the interval. IMPRESSION: 1. Possible infiltrates in the right infrahilar region, would recommend clinical and lab correlation. 2. Few nodular shadows in the left perihilar region, likely representing end of vascular shadows. 3. Cardiomegaly with mild bilateral pulmonary vascular congestion. 4. Interval placement of left-sided PICC line with its tip at cavoatrial junction. Electronically Signed by: Liz Nelson MD. (04/29/2023 13:03:02 EST)
[2023-04-29 15:18] LABS: Hematocrit 25.1 % (35-47); Hemoglobin 7.8 g/dL (12.0-16.0)
--- NOTE | 2023-04-29 16:32 | PCM.NOTE ---
Date and Time: 04/29/231623 Subjective Assessment: POD #1 patient lethargic however no complaints of pain. Physical Exam - Narrative Narrative Physical Exam: Podiatry Physical Exam OBJECTIVE DATA Vital Signs: Vital Signs - 24 hr Temp Pulse Resp BP BP Pulse Ox 04/29/23 16:00 93 H 04/29/23 15:52 98.0 F 89 16 107/57 04/29/23 11:59 97 H 14 96/54 99 04/29/23 11:00 97 H 14 99/64 99 04/29/23 10:00 98.8 F 92 H 14 112/50 99 04/29/23 09:00 92 H 14 95/46 99 04/29/23 08:00 96 H 18 97/42 98 04/29/23 07:38 108/51 04/29/23 07:32 97 H 04/29/23 07:00 98.1 F 97 H 16 113/59 97 04/29/23 06:49 126/40 04/29/23 06:43 96 H 16 99 04/29/23 06:30 97 H 16 111/44 99 04/29/23 06:15 97 H 15 105/41 99 04/29/23 06:00 96 H 16 109/40 99 04/29/23 05:45 96 H 15 101/47 99 04/29/23 05:30 86 16 113/52 99 04/29/23 05:17 89 15 105/51 98 04/29/23 05:16 87 16 99 04/29/23 05:15 86 15 04/29/23 05:00 88 16 108/56 04/29/23 04:45 89 16 103/54 04/29/23 04:30 90 16 97/54 04/29/23 04:15 90 15 97/41 04/29/23 04:00 91 H 16 84/47 04/29/23 03:45 91 H 19 110/90 98 04/29/23 03:30 90 20 102/57 98 04/29/23 03:15 92 H 16 109/54 96 04/29/23 00:30 89 15 86/55 99 04/29/23 00:15 88 18 89/55 100 04/29/23 00:00 88 18 91/37 100 04/28/23 23:52 86 04/28/23 23:45 88 14 107/46 100 04/28/23 23:42 86 04/28/23 23:30 87 19 81/50 100 04/28/23 23:15 87 17 118/46 100 04/28/23 23:01 87 15 115/48 100 04/28/23 22:30 87 17 115/53 100 04/28/23 22:15 86 19 112/61 100 04/28/23 22:00 86 16 115/63 100 04/28/23 21:26 85 16 116/54 100 04/28/23 21:05 81 22 100 04/28/23 20:42 104/39 100 04/28/23 20:36 85 93/37 04/28/23 20:00 98.1 F 86 17 82/37 100 Pain Assessment - Last Documented Pain Intensity 4 Pain Scale Used 0-10 Pain Scale Intake and Output: Intake & Output 04/27/23 04/28/23 04/29/23 04/30/23 11:59 11:59 11:59 11:59 Intake Total 240 2205 240 Output Total 400 500 Balance 240 1805 -260 Weight 130.9 kg Lab Results: Lab Results-Last 24 Hours 04/27/23 04/27/23 04/28/23 Range/Units 18:36 18:36 12:12 WBC (4.0-10.5) x10^3/uL RBC (4.1-5.4) x10^6/uL Hgb (12.0-16.0) g/dL Hct (35-47) % MCV (78-100) fL MCH (26-32) pg MCHC (32-36) g/dL RDW (11.5-14.0) % Plt Count (150-450) x10^3/uL MPV (7.5-11.0) fL Gran % (36.0-66.0) % Immature Gran % (Auto) (0.00-0.4) % Nucleat RBC Rel Count (0.00-0.1) % Eos # (Auto) (0-0.5) x10^3/uL Immature Gran # (Auto) (0.00-0.03) x10^3u/L Absolute Lymphs (auto) (1.0-4.6) x10^3/uL Absolute Monos (auto) (0.0-1.3) x10^3/uL Absolute Nucleated RBC (0.00-0.01) x10^3u/L Lymphocytes % (24.0-44.0) % Monocytes % (0.0-12.0) % Eosinophils % (0.00-5.0) % Basophils % (0.0-0.4) % Absolute Granulocytes (1.4-6.9) x10^3/uL Basophils # (0-0.4) x10^3/uL Puncture Site pCO2 (35-45) mmHg pO2 (75-100) mmHg Base Excess (-2.0-2.0) O2 Saturation (94-100) g/dF ABG pH (7.35-7.45) ABG HCO3 (22-28) ABG O2 Sat (Measured) (95-100) % Bhaskar Test A-a Gradient a/A Ratio Hemoglobin Carboxyhemoglobin (0.0-6.9) % THgb Methemoglobin (1.4-1.5) % Temperature C POC O2 Flow Rate % Sodium (137-145) mmol/L Potassium (3.5-5.1) mmol/L Chloride (98-107) mmol/L Carbon Dioxide (22-30) mmol/L Anion Gap (5-15) MEQ/L BUN (7-17) mg/dL Creatinine (0.52-1.04) mg/dL Estimated GFR ML/MIN Glucose (74-106) mg/dL POC Glucometer (74 to 106) mg/dL Calcium (8.4-10.2) mg/dL Phosphorus (2.5-4.5) mg/dL Magnesium (1.6-2.3) mg/dL Total Bilirubin (0.2-1.3) mg/dL AST (14-36) U/L ALT (0-35) U/L Alkaline Phosphatase (38-126) U/L Serum Total Protein (6.3-8.2) g/dL Albumin (3.5-5.0) g/dL Urine Color Yellow (Yellow) Urine Appearance Clear (Clear) Urine pH 8.0 (4.6-8.0) Ur Specific [place] 1.010 (1.005-1.030) Urine Protein Negative (Negative) Urine Glucose (UA) Negative (Negative) mg/dL Urine Ketones Negative (Negative) Urine Blood Negative (Negative) Urine Nitrite Negative (Negative) Urine Bilirubin Negative (Negative) Urine Urobilinogen 1.0 A (0.2) mg/dL Ur Leukocyte Esterase Negative (Negative) U Hyaline Cast (Auto) NONE SEEN (0-2) /LPF Urine Microscopic RBC 0-2 (0-5) /HPF Urine Microscopic WBC 3-5 (0-5) /HPF Ur Epithelial Cells None Seen (None Seen) /HPF Urine Bacteria None Seen (None Seen) /HPF Slides for Path Review Crossmatch COMPATIBLE COMPATIBLE (COMPATIBLE) 04/28/23 04/28/23 04/28/23 Range/Units 18:50 18:50 18:55 WBC (4.0-10.5) x10^3/uL RBC (4.1-5.4) x10^6/uL Hgb 5.9 L* D (12.0-16.0) g/dL Hct 20.1 L (35-47) % MCV (78-100) fL MCH (26-32) pg MCHC (32-36) g/dL RDW (11.5-14.0) % Plt Count (150-450) x10^3/uL MPV (7.5-11.0) fL Gran % (36.0-66.0) % Immature Gran % (Auto) (0.00-0.4) % Nucleat RBC Rel Count (0.00-0.1) % Eos # (Auto) (0-0.5) x10^3/uL Immature Gran # (Auto) (0.00-0.03) x10^3u/L Absolute Lymphs (auto) (1.0-4.6) x10^3/uL Absolute Monos (auto) (0.0-1.3) x10^3/uL Absolute Nucleated RBC (0.00-0.01) x10^3u/L Lymphocytes % (24.0-44.0) % Monocytes % (0.0-12.0) % Eosinophils % (0.00-5.0) % Basophils % (0.0-0.4) % Absolute Granulocytes (1.4-6.9) x10^3/uL Basophils # (0-0.4) x10^3/uL Puncture Site ARTLINE pCO2 52 H (35-45) mmHg pO2 128 H* (75-100) mmHg Base Excess 11.0 H (-2.0-2.0) O2 Saturation 96.3 (94-100) g/dF ABG pH 7.45 (7.35-7.45) ABG HCO3 36.1 H* (22-28) ABG O2 Sat (Measured) 99.4 (95-100) % Bhaskar Test NOT APPLICABLE A-a Gradient 64 a/A Ratio 0.67 Hemoglobin 6.7 L* Carboxyhemoglobin 1.9 (0.0-6.9) % THgb Methemoglobin 1.2 L (1.4-1.5) % Temperature 37.0 C POC O2 Flow Rate 36 % Sodium 138 (137-145) mmol/L Potassium 3.6 3.6 (3.5-5.1) mmol/L Chloride 101 (98-107) mmol/L Carbon Dioxide 35 H (22-30) mmol/L Anion Gap 6.7 (5-15) MEQ/L BUN 20 H (7-17) mg/dL Creatinine 0.97 (0.52-1.04) mg/dL Estimated GFR 66.9 ML/MIN Glucose 129 H (74-106) mg/dL POC Glucometer (74 to 106) mg/dL Calcium 7.7 L (8.4-10.2) mg/dL Phosphorus 4.3 (2.5-4.5) mg/dL Magnesium 1.7 (1.6-2.3) mg/dL Total Bilirubin 0.60 (0.2-1.3) mg/dL AST 36 (14-36) U/L ALT 17 (0-35) U/L Alkaline Phosphatase 67 (38-126) U/L Serum Total Protein 6.0 L (6.3-8.2) g/dL Albumin 2.1 L (3.5-5.0) g/dL Urine Color (Yellow) Urine Appearance (Clear) Urine pH (4.6-8.0) Ur Specific [place] (1.005-1.030) Urine Protein (Negative) Urine Glucose (UA) (Negative) mg/dL Urine Ketones (Negative) Urine Blood (Negative) Urine Nitrite (Negative) Urine Bilirubin (Negative) Urine Urobilinogen (0.2) mg/dL Ur Leukocyte Esterase (Negative) U Hyaline Cast (Auto) (0-2) /LPF Urine Microscopic RBC (0-5) /HPF Urine Microscopic WBC (0-5) /HPF Ur Epithelial Cells (None Seen) /HPF Urine Bacteria (None Seen) /HPF Slides for Path Review Crossmatch (COMPATIBLE) 04/28/23 04/29/23 04/29/23 Range/Units 20:26 01:00 04:36 WBC 10.5 (4.0-10.5) x10^3/uL RBC 2.61 L (4.1-5.4) x10^6/uL Hgb 8.0 L D 7.2 L (12.0-16.0) g/dL Hct 25.9 L 23.9 L (35-47) % MCV 91.6 (78-100) fL MCH 27.6 (26-32) pg MCHC 30.1 L (32-36) g/dL RDW 16.8 H (11.5-14.0) % Plt Count 155 (150-450) x10^3/uL MPV 9.9 (7.5-11.0) fL Gran % 65.6 (36.0-66.0) % Immature Gran % (Auto) 0.6 H (0.00-0.4) % Nucleat RBC Rel Count 0.0 (0.00-0.1) % Eos # (Auto) 0.11 (0-0.5) x10^3/uL Immature Gran # (Auto) 0.06 H (0.00-0.03) x10^3u/L Absolute Lymphs (auto) 1.70 (1.0-4.6) x10^3/uL Absolute Monos (auto) 1.68 H (0.0-1.3) x10^3/uL Absolute Nucleated RBC 0.00 (0.00-0.01) x10^3u/L Lymphocytes % 16.2 L (24.0-44.0) % Monocytes % 16.0 H (0.0-12.0) % Eosinophils % 1.0 (0.00-5.0) % Basophils % 0.6 (0.0-0.4) % Absolute Granulocytes 6.87 (1.4-6.9) x10^3/uL Basophils # 0.06 (0-0.4) x10^3/uL Puncture Site pCO2 (35-45) mmHg pO2 (75-100) mmHg Base Excess (-2.0-2.0) O2 Saturation (94-100) g/dF ABG pH (7.35-7.45) ABG HCO3 (22-28) ABG O2 Sat (Measured) (95-100) % Bhaskar Test A-a Gradient a/A Ratio Hemoglobin Carboxyhemoglobin (0.0-6.9) % THgb Methemoglobin (1.4-1.5) % Temperature C POC O2 Flow Rate % Sodium (137-145) mmol/L Potassium (3.5-5.1) mmol/L Chloride (98-107) mmol/L Carbon Dioxide (22-30) mmol/L Anion Gap (5-15) MEQ/L BUN (7-17) mg/dL Creatinine (0.52-1.04) mg/dL Estimated GFR ML/MIN Glucose (74-106) mg/dL POC Glucometer 127 H (74 to 106) mg/dL Calcium (8.4-10.2) mg/dL Phosphorus (2.5-4.5) mg/dL Magnesium (1.6-2.3) mg/dL Total Bilirubin (0.2-1.3) mg/dL AST (14-36) U/L ALT (0-35) U/L Alkaline Phosphatase (38-126) U/L Serum Total Protein (6.3-8.2) g/dL Albumin (3.5-5.0) g/dL Urine Color (Yellow) Urine Appearance (Clear) Urine pH (4.6-8.0) Ur Specific [place] (1.005-1.030) Urine Protein (Negative) Urine Glucose (UA) (Negative) mg/dL Urine Ketones (Negative) Urine Blood (Negative) Urine Nitrite (Negative) Urine Bilirubin (Negative) Urine Urobilinogen (0.2) mg/dL Ur Leukocyte Esterase (Negative) U Hyaline Cast (Auto) (0-2) /LPF Urine Microscopic RBC (0-5) /HPF Urine Microscopic WBC (0-5) /HPF Ur Epithelial Cells (None Seen) /HPF Urine Bacteria (None Seen) /HPF Slides for Path Review YES Crossmatch (COMPATIBLE) 1104/29/23 04/29/23 Range/Units 04:36 04:36 07:27 WBC (4.0-10.5) x10^3/uL RBC (4.1-5.4) x10^6/uL Hgb (12.0-16.0) g/dL Hct (35-47) % MCV (78-100) fL MCH (26-32) pg MCHC (32-36) g/dL RDW (11.5-14.0) % Plt Count (150-450) x10^3/uL MPV (7.5-11.0) fL Gran % (36.0-66.0) % Immature Gran % (Auto) (0.00-0.4) % Nucleat RBC Rel Count (0.00-0.1) % Eos # (Auto) (0-0.5) x10^3/uL Immature Gran # (Auto) (0.00-0.03) x10^3u/L Absolute Lymphs (auto) (1.0-4.6) x10^3/uL Absolute Monos (auto) (0.0-1.3) x10^3/uL Absolute Nucleated RBC (0.00-0.01) x10^3u/L Lymphocytes % (24.0-44.0) % Monocytes % (0.0-12.0) % Eosinophils % (0.00-5.0) % Basophils % (0.0-0.4) % Absolute Granulocytes (1.4-6.9) x10^3/uL Basophils # (0-0.4) x10^3/uL Puncture Site pCO2 (35-45) mmHg pO2 (75-100) mmHg Base Excess (-2.0-2.0) O2 Saturation (94-100) g/dF ABG pH (7.35-7.45) ABG HCO3 (22-28) ABG O2 Sat (Measured) (95-100) % Bhaskar Test A-a Gradient a/A Ratio Hemoglobin Carboxyhemoglobin (0.0-6.9) % THgb Methemoglobin (1.4-1.5) % Temperature C POC O2 Flow Rate % Sodium 135 L (137-145) mmol/L Potassium 4.1 (3.5-5.1) mmol/L Chloride 98 (98-107) mmol/L Carbon Dioxide 32 H (22-30) mmol/L Anion Gap 8.7 (5-15) MEQ/L BUN 22 H (7-17) mg/dL Creatinine 1.13 H (0.52-1.04) mg/dL Estimated GFR 55.7 ML/MIN Glucose 167 H (74-106) mg/dL POC Glucometer 159 H (74 to 106) mg/dL Calcium 7.6 L (8.4-10.2) mg/dL Phosphorus (2.5-4.5) mg/dL Magnesium 1.6 (1.6-2.3) mg/dL Total Bilirubin 1.20 (0.2-1.3) mg/dL AST 81 H (14-36) U/L ALT 26 (0-35) U/L Alkaline Phosphatase 68 (38-126) U/L Serum Total Protein 6.3 (6.3-8.2) g/dL Albumin 2.3 L (3.5-5.0) g/dL Urine Color (Yellow) Urine Appearance (Clear) Urine pH (4.6-8.0) Ur Specific [place] (1.005-1.030) Urine Protein (Negative) Urine Glucose (UA) (Negative) mg/dL Urine Ketones (Negative) Urine Blood (Negative) Urine Nitrite (Negative) Urine Bilirubin (Negative) Urine Urobilinogen (0.2) mg/dL Ur Leukocyte Esterase (Negative) U Hyaline Cast (Auto) (0-2) /LPF Urine Microscopic RBC (0-5) /HPF Urine Microscopic WBC (0-5) /HPF Ur Epithelial Cells (None Seen) /HPF Urine Bacteria (None Seen) /HPF Slides for Path Review Crossmatch (COMPATIBLE) 04/29/23 04/29/23 04/29/23 Range/Units 07:42 11:39 15:14 WBC (4.0-10.5) x10^3/uL RBC (4.1-5.4) x10^6/uL Hgb 7.8 L (12.0-16.0) g/dL Hct 25.1 L (35-47) % MCV (78-100) fL MCH (26-32) pg MCHC (32-36) g/dL RDW (11.5-14.0) % Plt Count (150-450) x10^3/uL MPV (7.5-11.0) fL Gran % (36.0-66.0) % Immature Gran % (Auto) (0.00-0.4) % Nucleat RBC Rel Count (0.00-0.1) % Eos # (Auto) (0-0.5) x10^3/uL Immature Gran # (Auto) (0.00-0.03) x10^3u/L Absolute Lymphs (auto) (1.0-4.6) x10^3/uL Absolute Monos (auto) (0.0-1.3) x10^3/uL Absolute Nucleated RBC (0.00-0.01) x10^3u/L Lymphocytes % (24.0-44.0) % Monocytes % (0.0-12.0) % Eosinophils % (0.00-5.0) % Basophils % (0.0-0.4) % Absolute Granulocytes (1.4-6.9) x10^3/uL Basophils # (0-0.4) x10^3/uL Puncture Site pCO2 (35-45) mmHg pO2 (75-100) mmHg Base Excess (-2.0-2.0) O2 Saturation (94-100) g/dF ABG pH (7.35-7.45) ABG HCO3 (22-28) ABG O2 Sat (Measured) (95-100) % Bhaskar Test A-a Gradient a/A Ratio Hemoglobin Carboxyhemoglobin (0.0-6.9) % THgb Methemoglobin (1.4-1.5) % Temperature C POC O2 Flow Rate % Sodium (137-145) mmol/L Potassium (3.5-5.1) mmol/L Chloride (98-107) mmol/L Carbon Dioxide (22-30) mmol/L Anion Gap (5-15) MEQ/L BUN (7-17) mg/dL Creatinine (0.52-1.04) mg/dL Estimated GFR ML/MIN Glucose (74-106) mg/dL POC Glucometer 179 H (74 to 106) mg/dL Calcium (8.4-10.2) mg/dL Phosphorus (2.5-4.5) mg/dL Magnesium (1.6-2.3) mg/dL Total Bilirubin (0.2-1.3) mg/dL AST (14-36) U/L ALT (0-35) U/L Alkaline Phosphatase (38-126) U/L Serum Total Protein (6.3-8.2) g/dL Albumin (3.5-5.0) g/dL Urine Color (Yellow) Urine Appearance (Clear) Urine pH (4.6-8.0) Ur Specific [place] (1.005-1.030) Urine Protein (Negative) Urine Glucose (UA) (Negative) mg/dL Urine Ketones (Negative) Urine Blood (Negative) Urine Nitrite (Negative) Urine Bilirubin (Negative) Urine Urobilinogen (0.2) mg/dL Ur Leukocyte Esterase (Negative) U Hyaline Cast (Auto) (0-2) /LPF Urine Microscopic RBC (0-5) /HPF Urine Microscopic WBC (0-5) /HPF Ur Epithelial Cells (None Seen) /HPF Urine Bacteria (None Seen) /HPF Slides for Path Review Crossmatch COMPATIBLE (COMPATIBLE) 04/29/23 04/29/23 Range/Units 15:59 Unknown WBC (4.0-10.5) x10^3/uL RBC (4.1-5.4) x10^6/uL Hgb (12.0-16.0) g/dL Hct (35-47) % MCV (78-100) fL MCH (26-32) pg MCHC (32-36) g/dL RDW (11.5-14.0) % Plt Count (150-450) x10^3/uL MPV (7.5-11.0) fL Gran % (36.0-66.0) % Immature Gran % (Auto) (0.00-0.4) % Nucleat RBC Rel Count (0.00-0.1) % Eos # (Auto) (0-0.5) x10^3/uL Immature Gran # (Auto) (0.00-0.03) x10^3u/L Absolute Lymphs (auto) (1.0-4.6) x10^3/uL Absolute Monos (auto) (0.0-1.3) x10^3/uL Absolute Nucleated RBC (0.00-0.01) x10^3u/L Lymphocytes % (24.0-44.0) % Monocytes % (0.0-12.0) % Eosinophils % (0.00-5.0) % Basophils % (0.0-0.4) % Absolute Granulocytes (1.4-6.9) x10^3/uL Basophils # (0-0.4) x10^3/uL Puncture Site pCO2 (35-45) mmHg pO2 (75-100) mmHg Base Excess (-2.0-2.0) O2 Saturation (94-100) g/dF ABG pH (7.35-7.45) ABG HCO3 (22-28) ABG O2 Sat (Measured) (95-100) % Bhaskar Test A-a Gradient a/A Ratio Hemoglobin Carboxyhemoglobin (0.0-6.9) % THgb Methemoglobin (1.4-1.5) % Temperature C POC O2 Flow Rate % Sodium (137-145) mmol/L Potassium (3.5-5.1) mmol/L Chloride (98-107) mmol/L Carbon Dioxide (22-30) mmol/L Anion Gap (5-15) MEQ/L BUN (7-17) mg/dL Creatinine (0.52-1.04) mg/dL Estimated GFR ML/MIN Glucose (74-106) mg/dL POC Glucometer 174 H (74 to 106) mg/dL Calcium (8.4-10.2) mg/dL Phosphorus (2.5-4.5) mg/dL Magnesium (1.6-2.3) mg/dL Total Bilirubin (0.2-1.3) mg/dL AST (14-36) U/L ALT (0-35) U/L Alkaline Phosphatase (38-126) U/L Serum Total Protein (6.3-8.2) g/dL Albumin (3.5-5.0) g/dL Urine Color (Yellow) Urine Appearance (Clear) Urine pH (4.6-8.0) Ur Specific [place] (1.005-1.030) Urine Protein (Negative) Urine Glucose (UA) (Negative) mg/dL Urine Ketones (Negative) Urine Blood (Negative) Urine Nitrite (Negative) Urine Bilirubin (Negative) Urine Urobilinogen (0.2) mg/dL Ur Leukocyte Esterase (Negative) U Hyaline Cast (Auto) (0-2) /LPF Urine Microscopic RBC (0-5) /HPF Urine Microscopic WBC (0-5) /HPF Ur Epithelial Cells (None Seen) /HPF Urine Bacteria (None Seen) /HPF Slides for Path Review Crossmatch COMPATIBLE (COMPATIBLE) Radiology Exams: Radiology Procedures Category Date Time Status CHEST 1 VIEW (PORTABLE) Stat Exams 04/29/23 12:30 Completed FLUOROSCOPY UP TO 1 HR Routine Exams 04/28/23 09:03 Taken FOOT (MINIMUM 3 VIEWS) Routine Exams 04/28/23 09:03 Completed Assessment/Plan (1) Charcot ankle Current Visit: Yes Status: Acute Assessment & Plan: s/p right ankle astragalectomy, calcanectomy, tibiotalocalcaneal arthrodesis, Medial column fusion, calcaneocuboid arthrodesis and delayed primary closure of heel and lateral leg wounds. Patient progressing without complication at this time Ok for d/c if approved through medicine Unna boot applied to the left lower extremity for venous insufficency and localized swelling PICC line replaced earlier today Continue dapomycin. Awaiting soft tissue cultures to assess if any other abx to be added will notify [facility] of changes Follow up 1 week Code(s): M14.679 - CHARCOT'S JOINT, UNSPECIFIED ANKLE AND FOOT (2) Diabetes mellitus Current Visit: Yes Status: Acute Code(s): E11.9 - TYPE 2 DIABETES MELLITUS WITHOUT COMPLICATIONS (3) Diabetic neuropathy, type II diabetes mellitus Current Visit: Yes Status: Acute Code(s): E11.40 - TYPE 2 DIABETES MELLITUS WITH DIABETIC NEUROPATHY, UNSP (4) Osteomyelitis due to type 2 diabetes mellitus Current Visit: Yes Status: Acute Code(s): E11.69 - TYPE 2 DIABETES MELLITUS WITH OTHER SPECIFIED COMPLICATION; M86.9 - OSTEOMYELITIS, UNSPECIFIED (5) Rheumatoid arthritis Current Visit: Yes Status: Acute Code(s): M06.9 - RHEUMATOID ARTHRITIS, UNSPECIFIED (6) History of ankle surgery Current Visit: Yes Status: Acute Code(s): Z98.890 - OTHER SPECIFIED POSTPROCEDURAL STATES
[2023-04-29 20:29] LABS: Hematocrit 26.8 % (35-47); Hemoglobin 8.5 g/dL (12.0-16.0)
--- NOTE | 2023-04-29 21:43 | XRAY ---
Fifteen minutes and 5 seconds of fluoroscopy was used in surgery for a right partial tibial osteotomy, talectomy, partial calcanectomy, tibiotalocalcaneal arthrodesis, medial column arthrodesis, and all other indicated procedures.
[2023-04-29 23:43] VITALS: O2SAT 99
[2023-04-30] MEDS: HYDROCODONE-ACETAMIN 10-325 MG PO SCH ×4 (00:03→11:53)
[2023-04-30] MEDS: Sodium Chloride 0.9% 1000 ML 1,000 ML IV SCH (00:04)
[2023-04-30 04:26] VITALS: RESP 14; TEMP 97.6
--- NOTE | 2023-04-30 05:24 | PCM.NOTE ---
Date and Time: 04/30/23 0522 Subjective Assessment: HPI: Ms. David is a 58 year old female with a history of DM, HTN, obesity, GERD, neuropathy, CHF, and chronic anemia Patient of Dr. Soto admitted for surgical repair/graft of her right ankle scheduled for 04/28/23. On 3L of oxygen, but unclear as to why, patient states mostly due to anxiety, she does have h/o ANGIE and is supposed to use CPAP but does better with NC oxygen. Patient has a history of prior right foot fracture status post repair with a nail. However, patient had difficulty keeping her weight off of her foot, leading to wound dehiscence and subsequent outpatient surgery for removal of nail and placement of an external fixator. She has been receiving Daptomycin at [facility] where she resides via PICC placed in the [facility]. She is immobile due to her non-weight bearing status. The hospitalist team has been consulted for medical management. Patient denies fever,cough, sob, cp, abdominal pain, KERR, dizziness, N/V/D. 04/28/23: Met with patient bedside. No overnight events noted. Endorses RLE pain at 7/10 otherwise no complaints. Spoke with Dr. Soto regarding Hgb of 7.9, hold blood transfusion for now, will replace in surgery if needed. She does have an iron sat of 7% for which IV will be initiated. Patient has been advised that she will need referral to hematology on d/c to manage her chronic iron deficiency anemia. Denies fever,cough, sob, cp, abdominal pain, KERR, dizziness, N/V/D. 04/29/23: Met with patient bedside. S/P PODS#1 extensive right ankle repair per Dr. Soto. Ventillator discontinued. Patient now at baseline oxygen 3L. She was on neosynephrine for hypotension, but this has now been discontinued. BP still mildly soft. Hgb at 7.2 this morning, 1 unit of blood given. She is responsive and requesting diet. Endorses 7/10 pain to the RLE. Denies fever,cough, sob, cp, abdominal pain, KERR, dizziness, N/V/D. Objective Exam Wound Assessment: Skin/Wound Assessment Wound/Incision Assessment Start: 04/27/23 16:38 Text: Status: Active Freq: Q6H Protocol: Document 04/29/23 23:00 MP (Rec: 04/29/23 23:33 MP [id number]) Wound/Incision Assessment Right Foot Wound Assessment Shift Assessment Comment surgical wound with surgical dressing cdi Wound Photo Photo Taken No OBJECTIVE DATA Vital Signs: Vital Signs - 24 hr Temp Pulse Resp BP BP Pulse Ox 04/30/23 04:00 97.6 F 84 14 116/58 99 04/30/23 00:00 92 H 04/29/23 23:42 98.3 F 84 11 L 157/66 99 04/29/23 20:00 97.8 F 89 16 123/48 91 L 04/29/23 18:47 88 16 99 04/29/23 16:00 93 H 04/29/23 15:52 98.0 F 89 16 107/57 04/29/23 11:59 97 H 14 96/54 99 04/29/23 11:00 97 H 14 99/64 99 04/29/23 10:00 98.8 F 92 H 14 112/50 99 04/29/23 09:00 92 H 14 95/46 99 04/29/23 08:00 96 H 18 97/42 98 04/29/23 07:38 108/51 04/29/23 07:32 97 H 04/29/23 07:00 98.1 F 97 H 16 113/59 97 04/29/23 06:49 126/40 04/29/23 06:43 96 H 16 99 04/29/23 06:30 97 H 16 111/44 99 04/29/23 06:15 97 H 15 105/41 99 04/29/23 06:00 96 H 16 109/40 99 04/29/23 05:45 96 H 15 101/47 99 04/29/23 05:30 86 16 113/52 99 Pain Assessment - Last Documented Pain Intensity 7 Pain Scale Used 0-10 Pain Scale Intake and Output: Intake & Output 04/27/23 04/28/23 04/29/23 04/30/23 11:59 11:59 11:59 11:59 Intake Total 240 2205 871 Output Total 400 1050 Balance 240 1805 -179 Weight 130.9 kg Lab Results: Lab Results-Last 24 Hours 11/29/23 11/29/23 11/29/23 Range/Units 04:36 04:36 04:36 WBC 10.5 (4.0-10.5) x10^3/uL RBC 2.61 L (4.1-5.4) x10^6/uL Hgb 7.2 L (12.0-16.0) g/dL Hct 23.9 L (35-47) % MCV 91.6 (78-100) fL MCH 27.6 (26-32) pg MCHC 30.1 L (32-36) g/dL RDW 16.8 H (11.5-14.0) % Plt Count 155 (150-450) x10^3/uL MPV 9.9 (7.5-11.0) fL Gran % 65.6 (36.0-66.0) % Immature Gran % (Auto) 0.6 H (0.00-0.4) % Nucleat RBC Rel Count 0.0 (0.00-0.1) % Eos # (Auto) 0.11 (0-0.5) x10^3/uL Immature Gran # (Auto) 0.06 H (0.00-0.03) x10^3u/L Absolute Lymphs (auto) 1.70 (1.0-4.6) x10^3/uL Absolute Monos (auto) 1.68 H (0.0-1.3) x10^3/uL Absolute Nucleated RBC 0.00 (0.00-0.01) x10^3u/L Lymphocytes % 16.2 L (24.0-44.0) % Monocytes % 16.0 H (0.0-12.0) % Eosinophils % 1.0 (0.00-5.0) % Basophils % 0.6 (0.0-0.4) % Absolute Granulocytes 6.87 (1.4-6.9) x10^3/uL Basophils # 0.06 (0-0.4) x10^3/uL Sodium 135 L (137-145) mmol/L Potassium 4.1 (3.5-5.1) mmol/L Chloride 98 (98-107) mmol/L Carbon Dioxide 32 H (22-30) mmol/L Anion Gap 8.7 (5-15) MEQ/L BUN 22 H (7-17) mg/dL Creatinine 1.13 H (0.52-1.04) mg/dL Estimated GFR 55.7 ML/MIN Glucose 167 H (74-106) mg/dL POC Glucometer (74 to 106) mg/dL Calcium 7.6 L (8.4-10.2) mg/dL Magnesium 1.6 (1.6-2.3) mg/dL Total Bilirubin 1.20 (0.2-1.3) mg/dL AST 81 H (14-36) U/L ALT 26 (0-35) U/L Alkaline Phosphatase 68 (38-126) U/L Serum Total Protein 6.3 (6.3-8.2) g/dL Albumin 2.3 L (3.5-5.0) g/dL Slides for Path Review YES Crossmatch (COMPATIBLE) 04/29/23 04/29/23 04/29/23 Range/Units 07:27 07:42 11:39 WBC (4.0-10.5) x10^3/uL RBC (4.1-5.4) x10^6/uL Hgb (12.0-16.0) g/dL Hct (35-47) % MCV (78-100) fL MCH (26-32) pg MCHC (32-36) g/dL RDW (11.5-14.0) % Plt Count (150-450) x10^3/uL MPV (7.5-11.0) fL Gran % (36.0-66.0) % Immature Gran % (Auto) (0.00-0.4) % Nucleat RBC Rel Count (0.00-0.1) % Eos # (Auto) (0-0.5) x10^3/uL Immature Gran # (Auto) (0.00-0.03) x10^3u/L Absolute Lymphs (auto) (1.0-4.6) x10^3/uL Absolute Monos (auto) (0.0-1.3) x10^3/uL Absolute Nucleated RBC (0.00-0.01) x10^3u/L Lymphocytes % (24.0-44.0) % Monocytes % (0.0-12.0) % Eosinophils % (0.00-5.0) % Basophils % (0.0-0.4) % Absolute Granulocytes (1.4-6.9) x10^3/uL Basophils # (0-0.4) x10^3/uL Sodium (137-145) mmol/L Potassium (3.5-5.1) mmol/L Chloride (98-107) mmol/L Carbon Dioxide (22-30) mmol/L Anion Gap (5-15) MEQ/L BUN (7-17) mg/dL Creatinine (0.52-1.04) mg/dL Estimated GFR ML/MIN Glucose (74-106) mg/dL POC Glucometer 159 H 179 H (74 to 106) mg/dL Calcium (8.4-10.2) mg/dL Magnesium (1.6-2.3) mg/dL Total Bilirubin (0.2-1.3) mg/dL AST (14-36) U/L ALT (0-35) U/L Alkaline Phosphatase (38-126) U/L Serum Total Protein (6.3-8.2) g/dL Albumin (3.5-5.0) g/dL Slides for Path Review Crossmatch COMPATIBLE (COMPATIBLE) 04/29/23 04/29/23 04/29/23 Range/Units 15:14 15:59 20:27 WBC (4.0-10.5) x10^3/uL RBC (4.1-5.4) x10^6/uL Hgb 7.8 L 8.5 L (12.0-16.0) g/dL Hct 25.1 L 26.8 L (35-47) % MCV (78-100) fL MCH (26-32) pg MCHC (32-36) g/dL RDW (11.5-14.0) % Plt Count (150-450) x10^3/uL MPV (7.5-11.0) fL Gran % (36.0-66.0) % Immature Gran % (Auto) (0.00-0.4) % Nucleat RBC Rel Count (0.00-0.1) % Eos # (Auto) (0-0.5) x10^3/uL Immature Gran # (Auto) (0.00-0.03) x10^3u/L Absolute Lymphs (auto) (1.0-4.6) x10^3/uL Absolute Monos (auto) (0.0-1.3) x10^3/uL Absolute Nucleated RBC (0.00-0.01) x10^3u/L Lymphocytes % (24.0-44.0) % Monocytes % (0.0-12.0) % Eosinophils % (0.00-5.0) % Basophils % (0.0-0.4) % Absolute Granulocytes (1.4-6.9) x10^3/uL Basophils # (0-0.4) x10^3/uL Sodium (137-145) mmol/L Potassium (3.5-5.1) mmol/L Chloride (98-107) mmol/L Carbon Dioxide (22-30) mmol/L Anion Gap (5-15) MEQ/L BUN (7-17) mg/dL Creatinine (0.52-1.04) mg/dL Estimated GFR ML/MIN Glucose (74-106) mg/dL POC Glucometer 174 H (74 to 106) mg/dL Calcium (8.4-10.2) mg/dL Magnesium (1.6-2.3) mg/dL Total Bilirubin (0.2-1.3) mg/dL AST (14-36) U/L ALT (0-35) U/L Alkaline Phosphatase (38-126) U/L Serum Total Protein (6.3-8.2) g/dL Albumin (3.5-5.0) g/dL Slides for Path Review Crossmatch (COMPATIBLE) 04/29/23 04/29/23 Range/Units 20:54 Unknown WBC (4.0-10.5) x10^3/uL RBC (4.1-5.4) x10^6/uL Hgb (12.0-16.0) g/dL Hct (35-47) % MCV (78-100) fL MCH (26-32) pg MCHC (32-36) g/dL RDW (11.5-14.0) % Plt Count (150-450) x10^3/uL MPV (7.5-11.0) fL Gran % (36.0-66.0) % Immature Gran % (Auto) (0.00-0.4) % Nucleat RBC Rel Count (0.00-0.1) % Eos # (Auto) (0-0.5) x10^3/uL Immature Gran # (Auto) (0.00-0.03) x10^3u/L Absolute Lymphs (auto) (1.0-4.6) x10^3/uL Absolute Monos (auto) (0.0-1.3) x10^3/uL Absolute Nucleated RBC (0.00-0.01) x10^3u/L Lymphocytes % (24.0-44.0) % Monocytes % (0.0-12.0) % Eosinophils % (0.00-5.0) % Basophils % (0.0-0.4) % Absolute Granulocytes (1.4-6.9) x10^3/uL Basophils # (0-0.4) x10^3/uL Sodium (137-145) mmol/L Potassium (3.5-5.1) mmol/L Chloride (98-107) mmol/L Carbon Dioxide (22-30) mmol/L Anion Gap (5-15) MEQ/L BUN (7-17) mg/dL Creatinine (0.52-1.04) mg/dL Estimated GFR ML/MIN Glucose (74-106) mg/dL POC Glucometer 176 H (74 to 106) mg/dL Calcium (8.4-10.2) mg/dL Magnesium (1.6-2.3) mg/dL Total Bilirubin (0.2-1.3) mg/dL AST (14-36) U/L ALT (0-35) U/L Alkaline Phosphatase (38-126) U/L Serum Total Protein (6.3-8.2) g/dL Albumin (3.5-5.0) g/dL Slides for Path Review Crossmatch COMPATIBLE (COMPATIBLE) Radiology Exams: Radiology Procedures Category Date Time Status CHEST 1 VIEW (PORTABLE) Stat Exams 04/29/23 12:30 Completed FLUOROSCOPY UP TO 1 HR Routine Exams 04/28/23 09:03 Completed FOOT (MINIMUM 3 VIEWS) Routine Exams 04/28/23 09:03 Completed Assessment/Plan (1) HTN (hypertension) Current Visit: Yes Status: Acute Assessment & Plan: -Continue home medications, monitor daily, adjustments as appropriate 04/28: -Stable 04/29: -soft, will hold bp meds today Code(s): I10 - ESSENTIAL (PRIMARY) HYPERTENSION (2) CHF (congestive heart failure) Current Visit: Yes Status: Acute Assessment & Plan: -Continue home meds as appropriate -No recent echo -Patient states she followed previously with [facility] cardiology, unsure who -Does not appear to be in exacerbation, LLE with compression dressing 04/28: -ECHO -consider -Continue torsemide/spironolactone 04/29: -Hold diuretics due to BP Code(s): I50.9 - HEART FAILURE, UNSPECIFIED (3) Anemia Current Visit: No Status: Acute Assessment & Plan: -CBC daily, replace if hgb <7 -iron studies 04/28: -Hgb at 7.9, iron sat at 7%, pt scheduled for surgery today, will transfuse per podiatry -Venofer x 5 doses or until stay complete, will follow with heme OP 04/29: -Venofer x 5 doses, will start today -1 unit LPRBC, will continue to monitor and replace <7 Code(s): D64.9 - ANEMIA, UNSPECIFIED (4) Generalized weakness Current Visit: No Status: Acute Assessment & Plan: -Due to immobility/deconditioning with Non-weightbearing status -Consider PT eval if okay with podiatry Code(s): R53.1 - WEAKNESS (5) ANGIE (obstructive sleep apnea) Current Visit: No Status: Acute Assessment & Plan: -Patient states she is supposed to use CPAP but does better with NC oxygen Code(s): G47.33 - OBSTRUCTIVE SLEEP APNEA (ADULT) (PEDIATRIC) (6) Diabetes mellitus Current Visit: No Status: Chronic Qualifiers: Diabetes mellitus type: type 2 Diabetes mellitus fdc insulin use: with terminal worker use Diabetes mellitus complication status: with other specified complication Qualified Code(s): E11.69 - Type 2 diabetes mellitus with other specified complication; Z79.4 - jail (current) use of insulin Assessment & Plan: -SSI -ADA diet -A1C -Promote good glycemic control for healing/advised weight loss Code(s): E11.9 - TYPE 2 DIABETES MELLITUS WITHOUT COMPLICATIONS (7) History of ankle surgery Current Visit: Yes Status: Acute Assessment & Plan: -prior right ankle repair, scheduled for extensive surgical repair/graft 04/28/[address] Soto -Continue dapto as directed #NA -Creat trending up (mild), most likely due to hypovolemia, will continue to monitor #Charcot ankle s/p right ankle astragalectomy, calcanectomy, tibiotalocalcaneal arthrodesis, Medial column fusion, calcaneocuboid arthrodesis and delayed primary closure of heel and lateral leg wounds. VTE: when okay with podiatry PPI: protonix Dispo: 3-5 days Next of Kin: Valeri Buckner (parent) [phone] Code(s): I10 - ESSENTIAL (PRIMARY) HYPERTENSION (2) CHF (congestive heart failure) Current Visit: Yes Status: Acute Code(s): I50.9 - HEART FAILURE, UNSPECIFIED (3) Anemia Current Visit: No Status: Acute Code(s): D64.9 - ANEMIA, UNSPECIFIED (4) Generalized weakness Current Visit: No Status: Acute Code(s): R53.1 - WEAKNESS (5) ANGIE (obstructive sleep apnea) Current Visit: No Status: Acute Code(s): G47.33 - OBSTRUCTIVE SLEEP APNEA (ADULT) (PEDIATRIC) (6) Diabetes mellitus Current Visit: No Status: Chronic Qualifiers: Diabetes mellitus type: type 2 Diabetes mellitus terminal worker insulin use: with fdc use Diabetes mellitus complication status: with other specified complication Qualified Code(s): E11.69 - Type 2 diabetes mellitus with other specified complication; Z79.4 - jail (current) use of insulin Code(s): E11.9 - TYPE 2 DIABETES MELLITUS WITHOUT COMPLICATIONS (7) History of ankle surgery Current Visit: Yes Status: Acute Code(s): Z98.890 - OTHER SPECIFIED POSTPROCEDURAL STATES (8) NA (acute kidney injury) Current Visit: Yes Status: Acute Code(s): N17.9 - ACUTE KIDNEY FAILURE, UNSPECIFIED (9) Charcot ankle Current Visit: Yes Status: Acute Code(s): M14.679 - CHARCOT'S JOINT, UNSPECIFIED ANKLE AND FOOT (10) Osteomyelitis due to type 2 diabetes mellitus Current Visit: Yes Status: Acute Code(s): E11.69 - TYPE 2 DIABETES MELLITUS WITH OTHER SPECIFIED COMPLICATION; M86.9 - OSTEOMYELITIS, UNSPECIFIED
[2023-04-30 06:08] LABS: Absolute Neutrophil Ct (ANC) 4.33 x10^3/uL (1.4-6.9); BASOPHIL % 0.5 % (0.0-0.4); Basophil (Absolute #) 0.03 x10^3/uL (0-0.4); Eosinophil % 3.2 % (0.00-5.0); Eosinophil (Absolute #) 0.21 x10^3/uL (0-0.5); Hematocrit 27.8 % (35-47); Hemoglobin 8.7 g/dL (12.0-16.0); IMMATURE GRAN # 0.05 x10^3u/L (0.00-0.03); IMMATURE GRAN % 0.8 % (0.00-0.4); Lymphocyte (Absolute #) 1.19 x10^3/uL (1.0-4.6); Lymphocytes % 17.9 % (24.0-44.0); Mean Cell Volume 91.7 fL (78-100); Mean Corpuscular Hemoglobin 28.7 pg (26-32); Mean Corpuscular Hgb Concent. 31.3 g/dL (32-36); Mean Platelet Volume 8.8 fL (7.5-11.0); Monocyte (Absolute #) 0.85 x10^3/uL (0.0-1.3); Monocytes % 12.8 % (0.0-12.0); Neutrophil % 64.8 % (36.0-66.0); Platelet Count 108 x10^3/uL (150-450); Red Blood Count 3.03 x10^6/uL (4.1-5.4); Red Cell Distribution Width 15.9 % (11.5-14.0); White Blood Count 6.7 x10^3/uL (4.0-10.5)
[2023-04-30 07:12] VITALS: BP 125/60; PULSE 77
[2023-04-30 07:31] LABS: ALBUMIN 2.3 g/dL (3.5-5.0); BILIRUBIN,TOTAL 1.1 mg/dL (0.2-1.3); Calcium 7.5 mg/dL (8.4-10.2); Creatinine 1 0.98 mg/dL (0.52-1.04); EST GLOMERULAR FILTRATION RATE 66.1 ML/MIN; Potassium 3.5 mmol/L (3.5-5.1); Total Protein 6.4 g/dL (6.3-8.2)
[2023-04-30] MEDS: DEMADEX 20 MG PO SCH (09:17)
[2023-04-30] MEDS: Aldactone 25 MG PO SCH (09:17)
[2023-04-30] MEDS: Klor Con PO SCH (09:17)
[2023-04-30] MEDS: Protonix 40MG Tablet PO SCH (09:18)
[2023-04-30] MEDS: DAPTOMYCIN IV SCH (10:25)
[2023-04-30] MEDS: SODIUM CHLORIDE FLUSH IV SCH (10:25)
--- NOTE | 2023-04-30 11:06 | PCM.DS ---
Discharge Summary Date of Admission: 04/27/23 12:57 Date of Discharge: 04/30/23 Admitting Physician: TONY ROSSI MD Primary Care Provider: KALA HERNANDEZ Allergies Allergies adhesive tape Adverse Reaction (Intermediate, Verified 03/24/23 11:10) sertraline [From Zoloft] Adverse Reaction (Intermediate, Verified 04/27/23 15:32) Hospital Summary - Hospital Course Hospital Course: Ms. David is a 58 year old female with a history of DM, HTN, obesity, GERD, neuropathy, CHF, and chronic anemia Patient of Dr. Hoskins admitted for surgical repair/graft of her right ankle scheduled for 04/28/23. On 3L of oxygen, but unclear as to why, patient states mostly due to anxiety, she does have h/o ANGIE and is supposed to use CPAP but does better with NC oxygen. Patient has a history of prior right foot fracture status post repair with a nail. Lerner jesus, patient had difficulty keeping her weight off of her foot, leading to wound dehiscence and subsequent outpatient surgery for removal of nail and placement of an external fixator. She has been receiving Daptomycin at [facility] where she resides via PICC placed in the [facility]. She is immobile due to her non-weight bearing status. The hospitalist team has been consulted for medical management.Patient is s/p right ankle astragalectomy, calcanectomy, tibiotalocalcaneal arthrodesis PODS#2, Medial column fusion, calcaneocuboid arthrodesis and delayed primary closure of heel and lateral leg wounds. Patient progressing without complication at this time and has been cleared by podiatry for discharge. Patient will d/c to [facility]. She has had her PICC replaced during hospitalization and will continue daptomycin per podiatry at [facility]. Cultures are still pending and managed by podiatry. She is to follow up with podiatry in one week. Patient also to follow up with Dr. Farr as OP for chronic anemia. She has received several units of blood and IV iron. Will discharge with ferrous sulfate. All questions/concerns have been addressed, patient ready for discharge. Discharge Note New Diagnosis: Osteomyelitis/charcot ankle/surgical repair New Medications: ferrous sulfate Follow Up: PCP/Podiatry/Chika Results pending: pathology Latest Assessment & Plan (1) HTN (hypertension) Current Visit: Yes Status: Acute Assessment & Plan: -Continue home medications, monitor daily, adjustments as appropriate 04/28: -Stable 04/29: -soft, will hold bp meds today Code(s): I10 - ESSENTIAL (PRIMARY) HYPERTENSION (2) CHF (congestive heart failure) Current Visit: Yes Status: Acute Assessment & Plan: -Continue home meds as appropriate -No recent echo -Patient states she followed previously with [facility] cardiology, unsure who -Does not appear to be in exacerbation, LLE with compression dressing 04/28: -ECHO -consider -Continue torsemide/spironolactone 04/29: -Hold diuretics due to BP Code(s): I50.9 - HEART FAILURE, UNSPECIFIED (3) Anemia Current Visit: No Status: Acute Assessment & Plan: -CBC daily, replace if hgb <7 -iron studies 04/28: -Hgb at 7.9, iron sat at 7%, pt scheduled for surgery today, will transfuse per podiatry -Venofer x 5 doses or until stay complete, will follow with heme OP 04/29: -Venofer x 5 doses, will start today -1 unit LPRBC, will continue to monitor and replace <7 Code(s): D64.9 - ANEMIA, UNSPECIFIED (4) Generalized weakness Current Visit: No Status: Acute Assessment & Plan: -Due to immobility/deconditioning with Non-weightbearing status -Consider PT eval if okay with podiatry Code(s): R53.1 - WEAKNESS (5) ANGIE (obstructive sleep apnea) Current Visit: No Status: Acute Assessment & Plan: -Patient states she is supposed to use CPAP but does better with NC oxygen Code(s): G47.33 - OBSTRUCTIVE SLEEP APNEA (ADULT) (PEDIATRIC) (6) Diabetes mellitus Current Visit: No Status: Chronic Qualifiers: Diabetes mellitus type: type 2 Diabetes mellitus bed bug exterminator insulin use: with [facility] use Diabetes mellitus complication status: with other specified complication Qualified Code(s): E11.69 - Type 2 diabetes mellitus with other specified complication; Z79.4 - emt intermediate (current) use of insulin Assessment & Plan: -SSI -ADA diet -A1C -Promote good glycemic control for healing/advised weight loss Code(s): E11.9 - TYPE 2 DIABETES MELLITUS WITHOUT COMPLICATIONS (7) History of ankle surgery Current Visit: Yes Status: Acute Assessment & Plan: -prior right ankle repair, scheduled for extensive surgical repair/graft 04/28/[address] Hoskins -Continue dapto as directed #NA -Creat trending up (mild), most likely due to hypovolemia, will continue to monitor 04/30: -Resolved Cathy VTE: when okay with podiatry PPI: protonix Dispo: 3-5 days Next of Kin: Valeri Buckner (parent) [phone] I spent 35 minutes [id number] with the patient on the day of discharge performing discharge exam, discussing hospital stay and discharge instructions with patient and caregivers, preparation of discharge records, prescriptions & referral forms and addressing any questions/concerns the patient had as documented above. - Vitals & Intake/Output Vital Signs: Vital Signs Temperature 97.6 F 04/30/23 07:11 Pulse Rate 77 04/30/23 07:11 Respiratory Rate 14 04/30/23 07:05 Blood Pressure 125/60 04/30/23 07:11 O2 Sat by Pulse Oximetry 99 04/30/23 07:11 Intake & Output: Intake & Output 04/27/23 04/28/23 04/29/23 04/30/23 11:59 11:59 11:59 11:59 Intake Total 240 2205 871 Output Total 400 1050 Balance 240 1805 -179 Weight 130.9 kg - Lab Result Diagrams: 04/30/23 06:00 04/30/23 06:00 Lab Results-Last 24 Hrs: Lab Results-Last 24 Hours 04/29/23 04/29/23 04/29/23 Range/Units 11:39 15:14 15:59 WBC (4.0-10.5) x10^3/uL RBC (4.1-5.4) x10^6/uL Hgb 7.8 L (12.0-16.0) g/dL Hct 25.1 L (35-47) % MCV (78-100) fL MCH (26-32) pg MCHC (32-36) g/dL RDW (11.5-14.0) % Plt Count (150-450) x10^3/uL MPV (7.5-11.0) fL Gran % (36.0-66.0) % Immature Gran % (Auto) (0.00-0.4) % Nucleat RBC Rel Count (0.00-0.1) % Eos # (Auto) (0-0.5) x10^3/uL Immature Gran # (Auto) (0.00-0.03) x10^3u/L Absolute Lymphs (auto) (1.0-4.6) x10^3/uL Absolute Monos (auto) (0.0-1.3) x10^3/uL Absolute Nucleated RBC (0.00-0.01) x10^3u/L Lymphocytes % (24.0-44.0) % Monocytes % (0.0-12.0) % Eosinophils % (0.00-5.0) % Basophils % (0.0-0.4) % Absolute Granulocytes (1.4-6.9) x10^3/uL Basophils # (0-0.4) x10^3/uL Sodium (137-145) mmol/L Potassium (3.5-5.1) mmol/L Chloride (98-107) mmol/L Carbon Dioxide (22-30) mmol/L Anion Gap (5-15) MEQ/L BUN (7-17) mg/dL Creatinine (0.52-1.04) mg/dL Estimated GFR ML/MIN Glucose (74-106) mg/dL POC Glucometer 179 H 174 H (74 to 106) mg/dL Calcium (8.4-10.2) mg/dL Magnesium (1.6-2.3) mg/dL Total Bilirubin (0.2-1.3) mg/dL AST (14-36) U/L ALT (0-35) U/L Alkaline Phosphatase (38-126) U/L Serum Total Protein (6.3-8.2) g/dL Albumin (3.5-5.0) g/dL 04/29/23 04/29/23 04/30/23 Range/Units 20:27 20:54 06:00 WBC 6.7 (4.0-10.5) x10^3/uL RBC 3.03 L (4.1-5.4) x10^6/uL Hgb 8.5 L 8.7 L (12.0-16.0) g/dL Hct 26.8 L 27.8 L (35-47) % MCV 91.7 (78-100) fL MCH 28.7 (26-32) pg MCHC 31.3 L (32-36) g/dL RDW 15.9 H (11.5-14.0) % Plt Count 108 L (150-450) x10^3/uL MPV 8.8 (7.5-11.0) fL Gran % 64.8 (36.0-66.0) % Immature Gran % (Auto) 0.8 H (0.00-0.4) % Nucleat RBC Rel Count 0.0 (0.00-0.1) % Eos # (Auto) 0.21 (0-0.5) x10^3/uL Immature Gran # (Auto) 0.05 H (0.00-0.03) x10^3u/L Absolute Lymphs (auto) 1.19 (1.0-4.6) x10^3/uL Absolute Monos (auto) 0.85 (0.0-1.3) x10^3/uL Absolute Nucleated RBC 0.00 (0.00-0.01) x10^3u/L Lymphocytes % 17.9 L (24.0-44.0) % Monocytes % 12.8 H (0.0-12.0) % Eosinophils % 3.2 (0.00-5.0) % Basophils % 0.5 (0.0-0.4) % Absolute Granulocytes 4.33 (1.4-6.9) x10^3/uL Basophils # 0.03 (0-0.4) x10^3/uL Sodium (137-145) mmol/L Potassium (3.5-5.1) mmol/L Chloride (98-107) mmol/L Carbon Dioxide (22-30) mmol/L Anion Gap (5-15) MEQ/L BUN (7-17) mg/dL Creatinine (0.52-1.04) mg/dL Estimated GFR ML/MIN Glucose (74-106) mg/dL POC Glucometer 176 H (74 to 106) mg/dL Calcium (8.4-10.2) mg/dL Magnesium (1.6-2.3) mg/dL Total Bilirubin (0.2-1.3) mg/dL AST (14-36) U/L ALT (0-35) U/L Alkaline Phosphatase (38-126) U/L Serum Total Protein (6.3-8.2) g/dL Albumin (3.5-5.0) g/dL 04/30/23 04/30/23 04/30/23 Range/Units 06:00 06:00 07:06 WBC (4.0-10.5) x10^3/uL RBC (4.1-5.4) x10^6/uL Hgb (12.0-16.0) g/dL Hct (35-47) % MCV (78-100) fL MCH (26-32) pg MCHC (32-36) g/dL RDW (11.5-14.0) % Plt Count (150-450) x10^3/uL MPV (7.5-11.0) fL Gran % (36.0-66.0) % Immature Gran % (Auto) (0.00-0.4) % Nucleat RBC Rel Count (0.00-0.1) % Eos # (Auto) (0-0.5) x10^3/uL Immature Gran # (Auto) (0.00-0.03) x10^3u/L Absolute Lymphs (auto) (1.0-4.6) x10^3/uL Absolute Monos (auto) (0.0-1.3) x10^3/uL Absolute Nucleated RBC (0.00-0.01) x10^3u/L Lymphocytes % (24.0-44.0) % Monocytes % (0.0-12.0) % Eosinophils % (0.00-5.0) % Basophils % (0.0-0.4) % Absolute Granulocytes (1.4-6.9) x10^3/uL Basophils # (0-0.4) x10^3/uL Sodium 137 (137-145) mmol/L Potassium 3.5 (3.5-5.1) mmol/L Chloride 99 (98-107) mmol/L Carbon Dioxide 33 H (22-30) mmol/L Anion Gap 9.0 (5-15) MEQ/L BUN 21 H (7-17) mg/dL Creatinine 0.98 (0.52-1.04) mg/dL Estimated GFR 66.1 ML/MIN Glucose 175 H (74-106) mg/dL POC Glucometer 168 H (74 to 106) mg/dL Calcium 7.5 L (8.4-10.2) mg/dL Magnesium 1.7 (1.6-2.3) mg/dL Total Bilirubin 1.10 (0.2-1.3) mg/dL AST 80 H (14-36) U/L ALT 31 (0-35) U/L Alkaline Phosphatase 71 (38-126) U/L Serum Total Protein 6.4 (6.3-8.2) g/dL Albumin 2.3 L (3.5-5.0) g/dL Micro Results-Entire Visit: Microbiology 04/28/23 12:12 Urine Culture - Final Urine, Catheterized NO GROWTH 04/28/23 11:28 Anaerobic Culture Result 1 - Final Foot - Right Not Reportable Anaerobic Culture Result 2 - Final Not Reportable Anaerobic Culture Result 3 - Final Not Reportable Anaerobic Culture Result 4 - Final Not Reportable Antimicrobic Susceptibility - Final Not Reportable Aerobic Culture Result 1 - Final Not Reportable Aerobic Culture Result 2 - Final Not Reportable - Final Not Reportable Aerobic Culture Result 4 - Final Not Reportable Organism Susceptibility - Final Not Reportable Accuchecks Date 04/29/23 Date 04/29/23 - Radiology Exams Ordered Rad Exams-Entire Visit: Radiology Procedures Category Date Time Status CHEST 1 VIEW (PORTABLE) Stat Exams 04/29/23 12:30 Completed - Procedures and Test Procedures and Tests throughout Hospitalization: Therapy Orders & Screens 04/27/23 16:38 PT Screen per Nursing Assess ONCE Comment: Protocol Order Physician Instructions: Greater than 3 points order PT Admission Screenin Reason For Exam: Triggered on Admission Diagnosis: Consult for medical management/ right ankle repair Open Wound/Cellutlitis/Pressure Ulcers: Yes Acute Fx/ORIF/Change in wt bearing status: No Severe MUSCULOSKELETAL pain: Yes ADL Dysfunction: Yes Acute CVA w/Hemiparesis/Hemiplegia: No Decreased Functional Mobility/Strength: Yes Sprain/Strain: No Acute Post-op Mobility Dysfunction: No Total Points: 14 RT Screen per Nursing Assess ONCE Comment: Protocol Order Physician Instructions: Greater than 3 points order RT Admission Screen Reason For Exam: Triggered on Admission Diagnosis: Consult for medical management/ right ankle repair Diagnosis: Consult for medical management/ right ankle repair Pneumonia: No Home O2: Yes Asthma: No CHF: Yes Home CPAP/BIPAP: Yes: will not wear Home Nebs/MDI: Yes Total Points: 18 04/27/23 16:48 Respiratory Therapy Assessment DAILY Comment: Diagnosis: Consult for medical management/ right ankle repair 04/27/23 19:55 Oxygen Nasal Cannula 3 lpm Comment: Diagnosis: Consult for medical management/ right ankle repair 04/28/23 15:33 EKG IN AM Comment: Diagnosis: Consult for medical management/ right ankle repair Discharge Exam General Appearance: no apparent distress Neurologic Exam: alert, oriented x 3, cooperative Eye Exam: PERRL Ears, Nose, Throat Exam: normal ENT inspection Neck Exam: normal inspection Respiratory Exam: normal breath sounds, lungs clear, other (3l o2 (baseline)) Cardiovascular Exam: regular rate/rhythm, normal heart sounds Gastrointestinal/Abdomen Exam: soft, normal bowel sounds Pelvic Exam: deferred Rectal Exam: deferred Extremity Exam: swelling, other (BLE edema Left with compression dressing/ right with surgical dressing/ayad bandage) Skin Exam: pale Wound Assessment: Skin/Wound Assessment Wound/Incision Assessment Start: 04/27/23 16:38 Text: Status: Active Freq: Q6H Protocol: Document 04/30/23 05:00 MP (Rec: 04/30/23 05:37 MP [id number]) Wound/Incision Assessment Right Foot Wound Assessment Shift Assessment Comment surgical wound with surgical dressing cdi Wound Photo Photo Taken No Final Diagnosis/Problem List - Final Discharge Diagnosis/Problem (1) Charcot ankle Current Visit: Yes Status: Acute Code(s): M14.679 - CHARCOT'S JOINT, UNSPECIFIED ANKLE AND FOOT (2) HTN (hypertension) Current Visit: Yes Status: Acute Code(s): I10 - ESSENTIAL (PRIMARY) HYPERTENSION (3) CHF (congestive heart failure) Current Visit: Yes Status: Acute Code(s): I50.9 - HEART FAILURE, UNSPECIFIED (4) Anemia Current Visit: No Status: Acute Code(s): D64.9 - ANEMIA, UNSPECIFIED (5) Generalized weakness Current Visit: No Status: Acute Code(s): R53.1 - WEAKNESS (6) ANGIE (obstructive sleep apnea) Current Visit: No Status: Acute Code(s): G47.33 - OBSTRUCTIVE SLEEP APNEA (ADULT) (PEDIATRIC) (7) Diabetes mellitus Current Visit: No Status: Chronic Code(s): E11.9 - TYPE 2 DIABETES MELLITUS WITHOUT COMPLICATIONS (8) History of ankle surgery Current Visit: Yes Status: Acute Code(s): Z98.890 - OTHER SPECIFIED POSTP ROCEDURAL STATES (9) NA (acute kidney injury) Current Visit: Yes Status: Acute Code(s): N17.9 - ACUTE KIDNEY FAILURE, UNSPECIFIED (10) Osteomyelitis due to type 2 diabetes mellitus Current Visit: Yes Status: Acute Code(s): E11.69 - TYPE 2 DIABETES MELLITUS WITH OTHER SPECIFIED COMPLICATION; M86.9 - OSTEOMYELITIS, UNSPECIFIED - Discharge Disposition: DC TO ANY "OTHER" GROUP HOME Condition: Stable Prescriptions: New Docusate Sodium 100 mg [Docusate Sodium 100 MG] 100 mg PO BIDPRN PRN cap PRN Reason: Constipation Ferrous Sulfate 325 mg [Feosol 325 mg] 325 mg PO DAILY 30 Days #30 tablet Continue Atorvastatin Calcium [Lipitor 20MG Tablet] 20 mg PO HS Albuterol Sulfate [Albuterol Sulfate Hfa] 2 puff IH Q4HPRN PRN PRN Reason: Shortness Of Breath/Wheezing Insulin Glargine [Lantus Insulin] 50 unit SQ HS Insulin Lispro [Humalog] 0 unit SQ DAILY Gabapentin Enacarbil [Horizant] 600 mg PO BID PANTOPRAZOLE 40 mg Tablet [Protonix 40MG Tablet] 40 mg PO BID Hydrocodone/Acetaminophen [Hydrocodone-Acetamin 10-325 mg] 1 tablet PO Q4H Aspirin EC 325 mg [Ecotrin 325 MG] 325 mg PO DAILY Sennosides/Docusate Sodium [Senna Plus 8.6-50 mg Tablet] 1 tab PO BID DAPTOmycin [Daptomycin] 850 mg IV DAILY Potassium Chloride Tab* [Klor Con] 10 meq PO BID Ondansetron [Ondansetron Odt ] 4 mg PO Q6H PRN PRN Reason: Nausea Torsemide 50 mg PO BID Spironolactone 25 mg [Aldactone 25 MG] 25 mg PO DAILY Bisacodyl 10 mg [Dulcolax 10 MG SUPP] 10 mg RC DAILY PRN PRN PRN Reason: Constipation Insulin Glargine [Lantus Insulin] 15 unit SQ QAM Additional Instructions: CA ORDERS: RESUME PREVIOUS CA ORDERS SEE ATTACHED MED LIST SHELDON (PODIATRY) ORDERS FOLLOWS: CONTINUE ASA, PAIN MEDS AND DAPTOMYCIN PREVIOUSLY AT CA CONTINUES DRESSING CHANGES TO LEFT LEFT LEG PREVIOUSLY ORDERED LEAVE RIGHT ANKLE DRESSING ALONE-DO NOT TOUCH!!! NONWTBEARING TO VERONICA. LEGS SEE FOLLOW UP APT. Follow up with: SHELDON HOSKINS DPM [ACTIVE STAFF] - 05/07/23 1:30 pm LAUREL FARR MD [NON-STAFF PHY W/O PRIVILEGES] - 05/13/23 10:00 am KALA HERNANDEZ [Primary Care Provider] -
== END 2023-04-30 12:20 ==
LOC: MED SURG 12:57 → ICU 04-28 12:00 → EDSTATUS 04-28 12:54
PROVIDERS: ADMIT Internal Medicine; ATTEND Internal Medicine
DX: M14.671 Charcot's joint, right ankle and foot (principal); S82.851A Displaced trimalleolar fracture of right lower leg, initial encounter for closed fracture; E11.42 Type 2 diabetes mellitus with diabetic polyneuropathy; T84.84XA Pain due to internal orthopedic prosthetic devices, implants and grafts, initial encounter; M21.961 Unspecified acquired deformity of right lower leg; E11.621 Type 2 diabetes mellitus with foot ulcer; I11.0 Hypertensive heart disease with heart failure; I50.9 Heart failure, unspecified; N17.9 Acute kidney failure, unspecified; D64.9 Anemia, unspecified; R53.1 Weakness; G47.33 Obstructive sleep apnea (adult) (pediatric); E11.69 Type 2 diabetes mellitus with other specified complication; Z79.4 Long term (current) use of insulin; E78.5 Hyperlipidemia, unspecified; R26.89 Other abnormalities of gait and mobility; M86.9 Osteomyelitis, unspecified; F41.9 Anxiety disorder, unspecified; E66.9 Obesity, unspecified; Z79.899 Other long term (current) drug therapy; Z20.828 Contact with and (suspected) exposure to other viral communicable diseases; Z99.81 Dependence on supplemental oxygen
CPT/HCPCS: 13160; 20680; 27705; 27870; 28120; 28730; 29580; 36415; 36430; 36600; 71045; 73630; 76000; 80053; 81001; 82375; 82607; 82728; 82746; 82803; 82947; 83540; 83550; 83735; 83880; 84100; 84134; 85014; 85018; 85025; 85610; 86850; 86900; 86901; 86922; 87040; 87070; 87075; 87086; 93005; 93268; 94760; 99024; C1713; C1762; G0378; G0379; P9016; Q3014; 36573; A6260; J0690; J0878; J1580; J1756; J2001; J2250; J2371; J2405; J3010; J3370; A9270-GY; J3475

== ENCOUNTER 2023-06-08 05:45 | Inpatient (IN) | payer MEDICAID ==
[2023-06-08] MEDS ORDERED: Sodium Chloride 0.9% 1000 ML 1,000 ML IV SCH ×2 (06:00→06:30)
[2023-06-08] MEDS ORDERED: SODIUM CHLORIDE FLUSH IV SCH (06:00)
[2023-06-08] MEDS ORDERED: DAPTOMYCIN IV SCH (06:00)
[2023-06-08] MEDS ORDERED: Versed 2 MG/2 ML Injection IV ONE (07:06)
[2023-06-08] MEDS ORDERED: Quelicin Fliptop 200 MG/10 ML ONE (07:08)
[2023-06-08] MEDS ORDERED: Amidate 20 MG/10 ML IV ONE (07:08)
[2023-06-08] MEDS ORDERED: Zemuron 100 MG/10 ML ONE ×2 (07:08→08:54)
[2023-06-08] MEDS ORDERED: SUBLIMAZE 100 MCG/2 ML ONE ×2 (07:08→09:49)
[2023-06-08] MEDS ORDERED: Versed 2 MG/2 ML Injection ONE (07:09)
--- NOTE | 2023-06-08 07:09 | XRAY ---
CLINICAL HISTORY:pre op COMPARISON:Compared with prior dated 04/29/2023 TECHNIQUE:Radiograph of chest was acquired. FINDINGS: Bilateral prominent vascular makings noted in the lungs. The right hemidiaphragm appears mildly elevated. Again noted is a left side PICC with its tip in the cavoatrial junction. There is mild cardiomegaly present. No acute osseous abnormality. IMPRESSION: 1. Mild cardiomegaly. 2. Prominent vascular markings noted in the lungs, suggestive of vascular congestion. Electronically Signed by: Dr. Jose Sheppard MD. (06/08/2023 07:06:35 EST)
[2023-06-08 07:28] LABS: ABO TYPING A; Antibody Screen NEGATIVE (NEGATIVE); RH TYPING POSITIVE
[2023-06-08] MEDS ORDERED: Naropin 0.5% 30 ML VIAL ONE (07:57)
[2023-06-08] MEDS ORDERED: Epinephrine Preservative Free 1 MG/ML ONE (07:57)
[2023-06-08] MEDS ORDERED: BRIDION 200MG/2ML IV ONE (09:24)
[2023-06-08] MEDS ORDERED: Hydromorphone 1 mg/ml Injection ONE ×2 (09:38→10:40)
[2023-06-08] MEDS ORDERED: MORPHINE SULFATE 4 MG INJ IV PRN (09:56)
[2023-06-08] MEDS ORDERED: PERCOCET TABLET 5/325MG PO PRN (09:59)
[2023-06-08] MEDS ORDERED: Fortaz/Tazicef 2 GM in D5w 100ML Mini Bag 100 ML 100 ML IV SCH (10:00)
--- NOTE | 2023-06-08 10:40 | XRAY ---
Indication: Amputation. Comparison: None AP/lateral right lower leg demonstrates below knee amputation. Stump demonstrates a few tiny subcutaneous air bubbles, possible gas forming infection in right clinical setting. Incidental patella spurring and lower leg vascular calcifications. No other bony, articular, or soft tissue abnormalities.
--- NOTE | 2023-06-08 10:50 | OP ---
AMENDED REPORT: Date of Procedure: 06/08/2023 0804 Preoperative Diagnosis: Right foot and ankle osteomyelitis. Postoperative Diagnosis: Right foot and ankle osteomyelitis. Procedure: Right below knee amputation. Attending Physician: Bassam Fonseca M.D. Anesthesia: General plus peripheral block by ISATU. Findings: Grossly purulent fluid on medial and lateral wounds. Intraoperative wound bleeding mildly. EBL: 200 cc Specimen: Right leg sent for gross. There were also cultures taken before prepping the leg lateral wound. Drain: Shantel. Fluids: See anesthesia record. Tourniquet Time: 10 minutes. Complications: None. Indications for procedure: The patient is a 58-year-old white female diabetic with chronic osteomyelitis after a bout with attempted salvage procedures by podiatry with retained hardware in the foot and removed hardware from the ankle fusion. The patient was having pain and continued drainage even on antibiotics and it was thought that she would benefit from below knee amputation to try to curb her infection and prevent sepsis. Description of procedure: The patient was seen preoperatively and identified the right lower extremity as correct. This admission by me, she had daptomycin IV preoperatively. She was taken to the OR where she had general anesthesia after she already had block performed. She was positioned supine with a bump in her right hip. The hip is carefully prepped and draped with her right lower extremity. Time out performed by me and then had tourniquet inflated in upper thigh to 30 mm of Mercury. Total tourniquet time was approximately ten minutes. [place] incisions had been marked with a bone level resection at 12 cm from joint line with a 5 cm anterior flap and 10 cm posterior flap. Incision carried down anteriorly to bone. Tibia and fibula was stripped. Electrocautery was used to cauterize small vessels. The saw had been used for tibial transection transversely with 12 cm length. The fibula was then transected 1 cm proximal to this. The soft tissue was stripped off of the tibia and fibula with caraballo elevator and the 10 blade was used to complete the amputation posteriorly. Vessels and nerves were all clamped and the tourniquet was released. Electrocautery was used to cauterize small vessels. Larger vessels and nerves were tied off with 2-0 silk stick-ties and allowed to retract into the stump. The tibia was chamfered anteriorly with a 45 degree angle with the saw and edges smoothed with the saw. The wounds were thoroughly irrigated with saline. The tissue flaps were closed anterior to posteriorly with #1 Vicryl interrupted suture with poor tissue quality. The subcu tissue closed with 2-0 Vicryl and skin closed with 3-0 Nylon leaving large gaps. Dog ears were corrected at each side. Large [place] drains had been placed coming up the medial and lateral edges of the wound where it could be pulled through on postoperative day 1. Sterile dressings were then applied. The patient was left stable in the OR. Plan: IV antibiotics for five days, possible p.o. antibiotics after that. The patient will have the Shantle drain removed tomorrow. Will leave dressing on for five days and change. I will see her back in two or three weeks for suture removal in the office. Will plan on starting a front office supervisor in approximately three to four weeks postoperative and off feet for approximately six weeks postoperative if the wound looks good. If it does not, she will require above knee amputation.
[2023-06-08 12:30] LABS: Hematocrit 25.2 % (35-47); Hemoglobin 7.8 g/dL (12.0-16.0); Mean Cell Volume 91.3 fL (78-100); Mean Corpuscular Hemoglobin 28.3 pg (26-32); Mean Platelet Volume 9.7 fL (7.5-11.0); Platelet Count 124 x10^3/uL (150-450); Red Blood Count 2.76 x10^6/uL (4.1-5.4); Red Cell Distribution Width 16.2 % (11.5-14.0); White Blood Count 4.9 x10^3/uL (4.0-10.5)
[2023-06-08] MEDS: MORPHINE SULFATE 4 MG INJ IV PRN ×3 (12:48→20:40)
[2023-06-08 12:52] LABS: ANION GAP 9.1 MEQ/L (5-15); Calcium 8.5 mg/dL (8.4-10.2); Creatinine 1 0.97 mg/dL (0.52-1.04); EST GLOMERULAR FILTRATION RATE 66.9 ML/MIN; PREALBUMIN 7.63 mg/dL (17.6-36.0); Potassium 4.3 mmol/L (3.5-5.1)
--- NOTE | 2023-06-08 13:02 | PCM.HP ---
<EUGENIA WILHELM - Last Filed: 06/08/23 15:49> History of Present Illness - Chief Complaint Chief Complaint: right leg infection Date: 06/08/23 History of Present Illness: is a 58 year old female with a pmhx of DM, HTN, obesity, GERD, ne uropathy, CHF, recent surgical repair/graft of right ankle (04/28/23) with Dr. Soto, and chronic anemia who presents to the hospital s/p right BKA. Hospitalist team has been consulted for medical management. Patient endorsing right extremity pain postoperatively. She is currently rating her pain at 9/10 on numerical pain. Patient is from nursing facility. Will need 1-2 days of IV abx and pain control per Ortho. - Review of Systems Constitutional: No Symptoms Eyes: No Symptoms Ears, Nose, & Throat: No Symptoms Respiratory: Short Of Breath Cardiac: No Symptoms Abdominal/Gastrointestinal: No Symptoms Genitourinary Symptoms: No Symptoms Musculoskeletal: Other (pain to right extremity) Neurological: No Symptoms Psychological: No Symptoms Endocrine: No Symptoms Medications & Allergies Home Medications: Home Medication List Atorvastatin Calcium [Lipitor 20MG Tablet] 20 mg PO HS 06/11/17 [History Confirmed 06/05/23] Albuterol Sulfate [Albuterol Sulfate Hfa] 2 puff IH Q6H PRN PRN 07/04/22 [History Confirmed 06/05/23] Insulin Glargine [Lantus Insulin] 50 unit SQ HS 09/20/22 [History Confirmed 06/05/23] Gabapentin Enacarbil [Horizant] 600 mg PO BID 11/12/22 [History Confirmed 06/05/23] Insulin Lispro [Humalog] 0 unit SQ AC 11/12/22 [History Confirmed 06/05/23] Aspirin EC 325 mg [Ecotrin 325 MG] 325 mg PO DAILY 12/05/22 [History Confirmed 06/05/23] PANTOPRAZOLE 40 mg Tablet [Protonix 40MG Tablet] 40 mg PO BID 12/05/22 [History Confirmed 06/05/23] Bisacodyl 10 mg [Dulcolax 10 MG SUPP] 10 mg RC DAILY PRN PRN 04/27/23 [History Confirmed 06/05/23] DAPTOmycin [Daptomycin] 850 mg IV DAILY 04/27/23 [History Confirmed 06/05/23] Insulin Glargine [Lantus Insulin] 15 unit SQ QAM 04/27/23 [History Confirmed 06/05/23] Ondansetron [Ondansetron Odt ] 4 mg PO Q6H PRN 04/27/23 [History Confirmed 06/05/23] Potassium Chloride Tab* [Klor Con] 10 meq PO BID 04/27/23 [History Confirmed 06/05/23] Spironolactone 25 mg [Aldactone 25 MG] 25 mg PO DAILY 04/27/23 [History Confirmed 06/05/23] Torsemide 50 mg PO BID 04/27/23 [History Confirmed 06/05/23] Ferrous Sulfate 325 mg [Feosol 325 mg] 325 mg PO DAILY 30 Days #30 tablet 04/30/23 [Rx Confirmed 06/05/23] Calcium Carbonate [Tums] 400 mg PO QID PRN 06/05/23 [History Confirmed 06/08/23] Hydromorphone HCl 1 mg PO Q4H PRN 06/05/23 [History Confirmed 06/05/23] Lactulose 20 gm PO QID 06/05/23 [History Confirmed 06/05/23] Melatonin 3 mg PO HS 06/05/23 [History Confirmed 06/05/23] Allergies/Adverse Reactions: Allergies Allergy/AdvReac Type Severity Reaction Status Date / Time adhesive tape AdvReac Intermediate Verified 03/24/23 11:10 sertraline [From Zoloft] AdvReac Intermediate Verified 04/27/23 15:32 - Past Medical History Past Medical History: Yes Neurological History: No Pertinent History ENT History: No Pertinent History Cardiac History: Deep Vein Thrombosis, High Cholesterol, Hypertension Respiratory History: CHF Endocrine Medical History: Diabetes Type II Musculoskelatal History: Rheumatoid Arthritis GI Medical History: GERD, Other History: No Pertinent History Pyscho-Social History: Anxiety, Depression Reproductive Disorders: No Pertinent History Comment: BURSITIS TO BOTH SHOULDERS, NEUROPATHY THROUGHOUT HER BODY. Charcot of the right foot/ankle. thrombocytopenia. gastroparesis - Female History Are you now?: No - Past Surgical History Past Surgical History: Yes Neuro Surgical History: No Pertinent History Cardiac History: No Pertinent History Respiratory Surgery: No Pertinent History GI Surgical History: Other Genitourinary Surgical Hx: No Pertinent History Musculskeletal Surgical Hx: No Pertinent History Female Surgical History: Tubal Ligation, Other Other Surgical History: d & c, (rectal surgery x3, cyst removed from rectum). cyst removed from pancreas. right foot surgery - Social History Smoking Status: Never smoker Exposure to second hand smoke: No Alcohol: None Drug Use: none Significant Family History: no pertinent family hx - Physical Exam Vital Signs: Vital Signs - 24 hr Temp Pulse Resp BP BP Pulse Ox 06/08/23 12:10 97.7 F 74 16 119/58 99 06/08/23 12:00 97.7 F 76 16 134/66 98 06/08/23 11:55 97.7 F 76 16 117/61 98 06/08/23 11:40 97.7 F 75 16 130/68 99 06/08/23 11:32 97.7 F 76 16 134/66 99 06/08/23 11:25 97.7 F 76 16 134/66 99 06/08/23 06:47 96.7 F 80 18 139/62 96 06/08/23 06:38 96.7 F 80 18 139/62 96 General Appearance: mild distress Neurologic Exam: alert, oriented x 3, cooperative Eye Exam: PERRL/EOMI Ears, Nose, Throat Exam: normal ENT inspection Neck Exam: normal inspection Respiratory Exam: normal breath sounds, lungs clear Cardiovascular Exam: regular rate/rhythm, normal heart sounds Gastrointestinal/Abdomen Exam: soft, normal bowel sounds Pelvic Exam: not done Rectal Exam: deferred Back Exam: normal inspection Extremity Exam: amputations (RBKA PODS#0), other (BKE right extremity) Skin Exam: normal color Results - Labs Lab/Micro Results: Lab Results-Last 24 Hours 06/08/23 06/08/23 06/08/23 Range/Units 06:40 06:40 11:58 WBC 4.9 (4.0-10.5) x10^3/uL RBC 2.76 L (4.1-5.4) x10^6/uL Hgb 7.8 L (12.0-16.0) g/dL Hct 25.2 L (35-47) % MCV 91.3 (78-100) fL MCH 28.3 (26-32) pg MCHC 31.0 L (32-36) g/dL RDW 16.2 H (11.5-14.0) % Plt Count 124 L (150-450) x10^3/uL MPV 9.7 (7.5-11.0) fL NT-Pro-B Natriuret Pep 461 (<300) pg/mL ABO Group A Rh Factor POSITIVE Antibody Screen NEGATIVE (NEGATIVE) Microbiology 06/08/23 08:41 Aerobic Culture Result 1 - Final Leg - Right Not Reportable Aerobic Culture Result 2 - Final Not Reportable Aerobic Culture Result 3 - Final Not Reportable Aerobic Culture Result 4 - Final Not Reportable Aerobic Bacterial Sensitivity - Final Not Reportable - Radiology Impressions Radiology Exams & Impressions: Radiology Procedures Category Date Time Status LOWER LEG Routine Exams 06/08/23 10:08 Completed Portable Chest [CHEST 1 VIEW (PORTABLE)] Stat Exams 06/08/23 06:23 Completed - Other Procedures and Tests Respiratory Therapy 06/08/23 12:09 EKG ROUTINE Assessment/Plan (1) S/P BKA (below knee amputation) Current Visit: Yes Status: Acute Assessment & Plan: -PODS#0 -Pain control/abx managed by ortho, currently on ceftazidime/daptomycin -Dressing changes per ortho Code(s): Z89.519 - ACQUIRED ABSENCE OF UNSPECIFIED LEG BELOW KNEE (2) Neuropathy Current Visit: Yes Status: Acute Assessment & Plan: -Continue home medication gabapentin Code(s): G62.9 - POLYNEUROPATHY, UNSPECIFIED (3) GERD (gastroesophageal reflux disease) Current Visit: Yes Status: Acute Assessment & Plan: -Continue protonix Code(s): K21.9 - GASTRO-ESOPHAGEAL REFLUX DISEASE WITHOUT ESOPHAGITIS (4) Diabetes mellitus Current Visit: No Status: Acute Assessment & Plan: -ADA diet -SSI, monitor closely, may need adjustments -Continue home glargine -A1c pending Code(s): E11.9 - TYPE 2 DIABETES MELLITUS WITHOUT COMPLICATIONS (5) HTN (hypertension) Current Visit: No Status: Acute Assessment & Plan: -stable Code(s): I10 - ESSENTIAL (PRIMARY) HYPERTENSION (6) Anemia Current Visit: No Status: Acute Assessment & Plan: -chronic, hgb at 7.8 s/p surgery -H&H q6h, transfuse if hgb <7 -continue ferrous sulfate VTE: resume anticoagulation when orhto okays it PPI: protonix Dispo: per Ortho recs, most likely 1-2 days Code(s): D64.9 - ANEMIA, UNSPECIFIED <LACIE AMAYA - Last Filed: 06/09/23 21:50> History of Present Illness - Chief Complaint History of Present Illness: is a 58 year old female. - Physical Exam Vital Signs: Vital Signs - 24 hr Temp Pulse Resp BP BP Pulse Ox 06/09/23 19:49 97.8 F 79 18 129/64 100 06/09/23 16:00 97.3 F 79 15 129/67 92 L 06/09/23 14:00 16 06/09/23 12:22 97.7 F 74 16 115/51 96 06/09/23 10:00 16 06/09/23 07:57 97.5 F 77 16 133/62 97 06/09/23 06:00 16 06/09/23 05:17 97.8 F 77 18 114/58 96 06/09/23 04:10 97.8 F 77 18 114/58 96 06/09/23 02:00 16 06/09/23 00:10 98.6 F 79 16 127/59 97 06/08/23 22:57 99.6 F 79 18 127/59 97 06/08/23 22:00 16 Wound Assessment: Skin/Wound Assessment Wound/Incision Assessment Start: 06/08/23 08:05 Text: Status: Active Freq: Q4H Protocol: Document 06/09/23 20:00 LB (Rec: 06/09/23 20:16 LB [id number]) Wound/Incision Assessment Left Posterior Buttock Wound Assessment Shift Assessment Wound Type Pressure Ulcer Wound Stage Stage II General Appearance Open to air Length (cm) (cm) 2 Width (cm) (cm) 2 Wound Bed Greatest Portion Shiny,Yellow (Slough) Wound Bed Lesser Portion Red (Granulation),Shiny Comment Barrier cream with zinc applied, picture in chart Right Lower Knee Wound Assessment Shift Assessment Wound Type Amputation Wound Stage Non Pressure Wound Dressing Status Dry & Intact Drainage Amount None Primary Dressing Gauze Pads Secondary Dressing Gauze Roll/Wrap Comment dressing to remain in place until postop day 5 reinforce with 4x4 and coban as needed. Wound Photo Photo Taken Yes Results - Labs Lab/Micro Results: Lab Results-Last 24 Hours 06/08/23 06/09/23 06/09/23 Range/Units 21:59 04:25 04:25 WBC 6.0 (4.0-10.5) x10^3/uL RBC 2.62 L (4.1-5.4) x10^6/uL Hgb 7.5 L (12.0-16.0) g/dL Hct 24.3 L (35-47) % MCV 92.7 (78-100) fL MCH 28.6 (26-32) pg MCHC 30.9 L (32-36) g/dL RDW 16.4 H (11.5-14.0) % Plt Count 112 L (150-450) x10^3/uL MPV 9.8 (7.5-11.0) fL Gran % 61.0 (36.0-66.0) % Immature Gran % (Auto) 0.3 (0.00-0.4) % Nucleat RBC Rel Count 0.0 (0.00-0.1) % Eos # (Auto) 0.13 (0-0.5) x10^3/uL Immature Gran # (Auto) 0.02 (0.00-0.03) x10^3u/L Absolute Lymphs (auto) 1.33 (1.0-4.6) x10^3/uL Absolute Monos (auto) 0.80 (0.0-1.3) x10^3/uL Absolute Nucleated RBC 0.00 (0.00-0.01) x10^3u/L Lymphocytes % 22.4 L (24.0-44.0) % Monocytes % 13.4 H (0.0-12.0) % Eosinophils % 2.2 (0.00-5.0) % Basophils % 0.7 (0.0-0.4) % Absolute Granulocytes 3.63 (1.4-6.9) x10^3/uL Basophils # 0.04 (0-0.4) x10^3/uL Sodium 134 L (137-145) mmol/L Potassium 4.0 (3.5-5.1) mmol/L Chloride 104 (98-107) mmol/L Carbon Dioxide 27 (22-30) mmol/L Anion Gap 6.0 (5-15) MEQ/L BUN 15 (7-17) mg/dL Creatinine 1.10 H (0.52-1.04) mg/dL Estimated GFR 57.5 ML/MIN Glucose 182 H (74-106) mg/dL POC Glucometer 190 H (74 to 106) mg/dL Hemoglobin A1c (4.5-6.0) % Calcium 8.0 L (8.4-10.2) mg/dL 06/09/23 06/09/23 06/09/23 Range/Units 04:25 07:27 12:06 WBC (4.0-10.5) x10^3/uL RBC (4.1-5.4) x10^6/uL Hgb (12.0-16.0) g/dL Hct (35-47) % MCV (78-100) fL MCH (26-32) pg MCHC (32-36) g/dL RDW (11.5-14.0) % Plt Count (150-450) x10^3/uL MPV (7.5-11.0) fL Gran % (36.0-66.0) % Immature Gran % (Auto) (0.00-0.4) % Nucleat RBC Rel Count (0.00-0.1) % Eos # (Auto) (0-0.5) x10^3/uL Immature Gran # (Auto) (0.00-0.03) x10^3u/L Absolute Lymphs (auto) (1.0-4.6) x10^3/uL Absolute Monos (auto) (0.0-1.3) x10^3/uL Absolute Nucleated RBC (0.00-0.01) x10^3u/L Lymphocytes % (24.0-44.0) % Monocytes % (0.0-12.0) % Eosinophils % (0.00-5.0) % Basophils % (0.0-0.4) % Absolute Granulocytes (1.4-6.9) x10^3/uL Basophils # (0-0.4) x10^3/uL Sodium (137-145) mmol/L Potassium (3.5-5.1) mmol/L Chloride (98-107) mmol/L Carbon Dioxide (22-30) mmol/L Anion Gap (5-15) MEQ/L BUN (7-17) mg/dL Creatinine (0.52-1.04) mg/dL Estimated GFR ML/MIN Glucose (74-106) mg/dL POC Glucometer 135 H 228 H (74 to 106) mg/dL Hemoglobin A1c 5.63 (4.5-6.0) % Calcium (8.4-10.2) mg/dL 06/09/23 06/09/23 Range/Units 16:56 21:08 WBC (4.0-10.5) x10^3/uL RBC (4.1-5.4) x10^6/uL Hgb (12.0-16.0) g/dL Hct (35-47) % MCV (78-100) fL MCH (26-32) pg MCHC (32-36) g/dL RDW (11.5-14.0) % Plt Count (150-450) x10^3/uL MPV (7.5-11.0) fL Gran % (36.0-66.0) % Immature Gran % (Auto) (0.00-0.4) % Nucleat RBC Rel Count (0.00-0.1) % Eos # (Auto) (0-0.5) x10^3/uL Immature Gran # (Auto) (0.00-0.03) x10^3u/L Absolute Lymphs (auto) (1.0-4.6) x10^3/uL Absolute Monos (auto) (0.0-1.3) x10^3/uL Absolute Nucleated RBC (0.00-0.01) x10^3u/L Lymphocytes % (24.0-44.0) % Monocytes % (0.0-12.0) % Eosinophils % (0.00-5.0) % Basophils % (0.0-0.4) % Absolute Granulocytes (1.4-6.9) x10^3/uL Basophils # (0-0.4) x10^3/uL Sodium (137-145) mmol/L Potassium (3.5-5.1) mmol/L Chloride (98-107) mmol/L Carbon Dioxide (22-30) mmol/L Anion Gap (5-15) MEQ/L BUN (7-17) mg/dL Creatinine (0.52-1.04) mg/dL Estimated GFR ML/MIN Glucose (74-106) mg/dL POC Glucometer 241 H 247 H (74 to 106) mg/dL Hemoglobin A1c (4.5-6.0) % Calcium (8.4-10.2) mg/dL Microbiology 06/08/23 08:41 Aerobic Organism ID Result 1 - Final Leg - Right Not Reportable Anaerobic Culture - Final Not Reportable Anaerobic Culture Result 1 - Final Not Reportable Anaerobic Culture Result 3 - Final Not Reportable Anaerobic Culture Result 4 - Final Not Reportable Anaerobic Bacterial Sensitivity - Final Not Reportable Accuchecks Date 06/09/23 Date 06/09/23 Date 06/09/23 Date 06/08/23 Time 21:00 Time 12:22 Time 07:58 - Radiology Impressions Radiology Exams & Impressions: Radiology Procedures Category Date Time Status LOWER LEG Routine Exams 06/08/23 10:08 Completed Portable Chest [CHEST 1 VIEW (PORTABLE)] Stat Exams 06/08/23 06:23 Completed MOO Encounter - MOO Encounter Attestation MOO Encounter Attestation: "CLOTILDE Rdz andhavediscussed pertinent aspects of their care with Eugenia Wilhelm and agree with the history, physical exam (any modifications based on my personal exam will be noted below), assessment, and plan as outlined in original note. Please see immediately below for my summary of findings and additional assessment and plan along with any meaningful corrections/explanations to the Subjective/Objective portions of the MOO note will be noted." My portion of the encounter took place via telemedicine. -Patient reported 8-9/10 pain in the RLE. She is POD 1 after a right BKA for osteomyelitis. Antibiotics dictated by surgery pending culture results. Patient will need SNF at discharge.
[2023-06-08] MEDS: PERCOCET TABLET 5/325MG PO PRN ×3 (14:48→23:04)
[2023-06-08] MEDS: Fortaz/Tazicef 2 GM in D5w 100ML Mini Bag 100 ML 100 ML IV SCH ×2 (15:32→23:24)
[2023-06-08] MEDS ORDERED: Zofran 4 MG/2 ML VIAL IV PRN (15:56)
[2023-06-08] MEDS ORDERED: TYLENOL 325 MG PO PRN (15:56)
[2023-06-08] MEDS ORDERED: ZOFRAN ODT 4 MG PO PRN (15:58)
[2023-06-08] MEDS ORDERED: Dulcolax 10 MG SUPP RC PRN (15:58)
[2023-06-08] MEDS ORDERED: VENTOLIN COMMON CANISTER IH PRN (15:58)
[2023-06-08] MEDS ORDERED: NON-FORMULARY ITEM (Calcium Carbonate [Tums] 200 MG Tab.Chew) PO PRN (15:58)
[2023-06-08] MEDS ORDERED: Tums EX 750 MG PO PRN (17:23)
[2023-06-08] MEDS ORDERED: MEDICATION INTERVENTION MC SCH (17:30)
[2023-06-08] MEDS: DEMADEX 20 MG PO SCH (17:47)
[2023-06-08] MEDS: NEURONTIN PO SCH ×2 (19:49→22:13)
[2023-06-08] MEDS ORDERED: GABAPENTIN ENACARBIL 600 MG PO SCH (22:00)
[2023-06-08] MEDS ORDERED: NON-FORMULARY ITEM (Torsemide [Torsemide] 100 MG Tablet) PO SCH (22:00)
[2023-06-08] MEDS ORDERED: NON-FORMULARY ITEM (Atorvastatin Calcium 20 MG Tab) PO SCH (22:00)
[2023-06-08] MEDS: Klor Con PO SCH (22:13)
[2023-06-08] MEDS: ZOCOR 20MG PO SCH (22:13)
[2023-06-08] MEDS: MELATONIN PO SCH (22:13)
[2023-06-08] MEDS: Protonix 40MG Tablet PO SCH (22:13)
[2023-06-08] MEDS: Lantus Insulin SQ SCH (22:14)
[2023-06-08] MEDS ORDERED: D5w 100ML Mini Bag 100 ML 100 ML IV ONE (22:54)
[2023-06-09] MEDS: MORPHINE SULFATE 4 MG INJ IV PRN ×2 (00:51→04:29)
[2023-06-09] MEDS ORDERED: Hydromorphone 1 mg/ml Injection IV ONE (02:10)
[2023-06-09 04:49] LABS: Absolute Neutrophil Ct (ANC) 3.63 x10^3/uL (1.4-6.9); BASOPHIL % 0.7 % (0.0-0.4); Basophil (Absolute #) 0.04 x10^3/uL (0-0.4); Eosinophil % 2.2 % (0.00-5.0); Eosinophil (Absolute #) 0.13 x10^3/uL (0-0.5); Hematocrit 24.3 % (35-47); Hemoglobin 7.5 g/dL (12.0-16.0); IMMATURE GRAN # 0.02 x10^3u/L (0.00-0.03); IMMATURE GRAN % 0.3 % (0.00-0.4); Lymphocyte (Absolute #) 1.33 x10^3/uL (1.0-4.6); Lymphocytes % 22.4 % (24.0-44.0); Mean Cell Volume 92.7 fL (78-100); Mean Corpuscular Hemoglobin 28.6 pg (26-32); Mean Corpuscular Hgb Concent. 30.9 g/dL (32-36); Mean Platelet Volume 9.8 fL (7.5-11.0); Monocytes % 13.4 % (0.0-12.0); Platelet Count 112 x10^3/uL (150-450); Red Blood Count 2.62 x10^6/uL (4.1-5.4); Red Cell Distribution Width 16.4 % (11.5-14.0)
--- NOTE | 2023-06-09 05:07 | PCM.NOTE ---
Date and Time: 06/09/23 0505 Subjective Assessment: is a 58 year old female with a pmhx of DM, HTN, obesity, GERD, neuropathy, CHF, recent surgical repair/graft of right ankle (04/28/23) with Dr. Soto, and chronic anemia who presents to the hospital s/p right BKA. Hospitalist team has been consulted for medical management. Patient endorsing right extremity pain postoperatively. 06/09/23: Met with patient bedside. Endorses improved pain with Diluadid, still rating it at 8/10 on numerical pain scale. No overnight events noted. Reviewed Ortho progress note, drain was removed today. Plan for IP for about two more days. Patient will need a total of 5 post op days of IV antibiotics pending cultures, then 5 more days of oral antibiotics. Dressing change on Day 5 with nonstick dressing. Shower on postop day 7. NWB on RLE. Return appt on 07/02/23. Discussed pain control with patient and ortho and decided on [place]/Dilaudid alt for now. Patient takes 2mg of Dilaudid at [facility] on regular basis. Denies fever,cough, sob, cp, abdominal pain, KERR, dizziness, N/V/D. <EUGENIA WILHELM - Last Filed: 06/09/23 09:15> Date and Time: 06/09/232150 <LACIE AMAYA - Last Filed: 06/09/23 21:51> - Review of Systems Constitutional: No Symptoms Eyes: No Symptoms Ears, Nose, & Throat: No Symptoms Respiratory: No Symptoms Cardiac: No Symptoms Abdominal/Gastrointestinal: No Symptoms Genitourinary Symptoms: No Symptoms Musculoskeletal: No Symptoms Skin: Other (RBKA with dressing) Neurological: No Symptoms Psychological: No Symptoms Endocrine: No Symptoms Hematologic/Lymphatic: Anemia Immunological/Allergic: No Symptoms <EUGENIA WILHELM - Last Filed: 06/09/23 09:15> Objective Exam General Appearance: no apparent distress Neurologic Exam: alert, oriented x 3, cooperative Skin Exam: normal color Wound Assessment: Skin/Wound Assessment Wound/Incision Assessment Start: 06/08/23 08:05 Text: Status: Active Freq: Q4H Protocol: Document 06/09/23 04:00 MP (Rec: 06/09/23 04:02 MP [id number]) Wound/Incision Assessment Right Lower Knee Wound Assessment Admission Wound Type Amputation Dressing Status Dry & Intact Drainage Amount Minimal Drainage Description shadowing Drainage Odor None/Absent Primary Dressing Gauze Roll/Wrap Secondary Dressing Kerlix Comment Dressing C/D/I, not to be removed per Dr order. Dr will be here on 06/09/2023 to remove drain and re-dress wound. Wound Photo Photo Taken No Comment: Dressing C/D/I, not to be removed per Dr order Eye Exam: PERRL Ears, Nose, Throat Exam: normal ENT inspection Neck Exam: normal inspection Respiratory Exam: normal breath sounds, lungs clear Cardiovascular Exam: regular rate/rhythm, normal heart sounds Gastrointestinal/Abdomen Exam: soft, normal bowel sounds Extremity Exam: amputations (RBKA), other (RBKA with surgical dressing, no surrounding erythema/streaking/discharge) Back Exam: normal inspection Pelvic Exam: deferred Rectal Exam: deferred <EUGENIA WILHELM - Last Filed: 06/09/23 09:15> Wound Assessment: Skin/Wound Assessment Wound/Incision Assessment Start: 06/08/23 08:05 Text: Status: Active Freq: Q4H Protocol: Document 06/09/23 20:00 LB (Rec: 06/09/23 20:16 LB [id number]) Wound/Incision Assessment Left Posterior Buttock Wound Assessment Shift Assessment Wound Type Pressure Ulcer Wound Stage Stage II General Appearance Open to air Length (cm) (cm) 2 Width (cm) (cm) 2 Wound Bed Greatest Portion Shiny,Yellow (Slough) Wound Bed Lesser Portion Red (Granulation),Shiny Comment Barrier cream with zinc applied, picture in chart Right Lower Knee Wound Assessment Shift Assessment Wound Type Amputation Wound Stage Non Pressure Wound Dressing Status Dry & Intact Drainage Amount None Primary Dressing Gauze Pads Secondary Dressing Gauze Roll/Wrap Comment dressing to remain in place until postop day 5 reinforce with 4x4 and coban as needed. Wound Photo Photo Taken Yes <LACIE AMAYA - Last Filed: 06/09/23 21:51> OBJECTIVE DATA Vital Signs: Vital Signs - 24 hr Temp Pulse Resp BP BP Pulse Ox 06/09/23 02:00 16 06/09/23 00:10 98.6 F 79 16 127/59 97 06/08/23 22:57 99.6 F 79 18 127/59 97 06/08/23 22:00 16 06/08/23 20:10 98.6 F 85 18 144/92 96 06/08/23 19:26 98.6 F 85 18 144/92 96 06/08/23 18:00 16 06/08/23 16:10 98.0 F 79 16 136/69 95 06/08/23 15:56 74 16 96 06/08/23 15:10 98.0 F 75 16 130/60 98 06/08/23 14:10 97.8 F 73 16 128/62 96 06/08/23 14:00 16 06/08/23 13:40 98.0 F 75 16 132/70 100 06/08/23 13:10 98.0 F 76 14 132/75 100 06/08/23 12:40 98.0 F 73 14 129/61 99 06/08/23 12:10 97.7 F 74 16 119/58 99 06/08/23 12:00 97.7 F 76 16 134/66 98 06/08/23 11:55 97.7 F 76 16 117/61 98 06/08/23 11:40 97.7 F 75 16 130/68 99 06/08/23 11:32 97.7 F 76 16 134/66 99 06/08/23 11:25 97.7 F 76 16 134/66 99 06/08/23 06:47 96.7 F 80 18 139/62 96 06/08/23 06:38 96.7 F 80 18 139/62 96 Pain Assessment - Last Documented Pain Intensity [Right Lower 7 Anterior] Pain Intensity [Right Lower 7 Anterior Knee] Pain Intensity 8 Pain Scale Used 0-10 Pain Scale Intake and Output: Intake & Output 06/06/23 06/07/23 06/08/23 06/09/23 11:59 11:59 11:59 11:59 Intake Total 760 Balance 760 Weight 122.9 kg Lab Results: Lab Results-Last 24 Hours 06/08/23 06/08/23 06/08/23 Range/Units 06:40 06:40 11:58 WBC 4.9 (4.0-10.5) x10^3/uL RBC 2.76 L (4.1-5.4) x10^6/uL Hgb 7.8 L (12.0-16.0) g/dL Hct 25.2 L (35-47) % MCV 91.3 (78-100) fL MCH 28.3 (26-32) pg MCHC 31.0 L (32-36) g/dL RDW 16.2 H (11.5-14.0) % Plt Count 124 L (150-450) x10^3/uL MPV 9.7 (7.5-11.0) fL Sodium (137-145) mmol/L Potassium (3.5-5.1) mmol/L Chloride (98-107) mmol/L Carbon Dioxide (22-30) mmol/L Anion Gap (5-15) MEQ/L BUN (7-17) mg/dL Creatinine (0.52-1.04) mg/dL Estimated GFR ML/MIN Glucose (74-106) mg/dL POC Glucometer (74 to 106) mg/dL Calcium (8.4-10.2) mg/dL NT-Pro-B Natriuret Pep 461 (<300) pg/mL Prealbumin (17.6-36.0) mg/dL ABO Group A Rh Factor POSITIVE Antibody Screen NEGATIVE (NEGATIVE) 06/08/23 06/08/23 06/08/23 Range/Units 11:58 16:48 21:59 WBC (4.0-10.5) x10^3/uL RBC (4.1-5.4) x10^6/uL Hgb (12.0-16.0) g/dL Hct (35-47) % MCV (78-100) fL MCH (26-32) pg MCHC (32-36) g/dL RDW (11.5-14.0) % Plt Count (150-450) x10^3/uL MPV (7.5-11.0) fL Sodium 136 L (137-145) mmol/L Potassium 4.3 (3.5-5.1) mmol/L Chloride 104 (98-107) mmol/L Carbon Dioxide 27 (22-30) mmol/L Anion Gap 9.1 (5-15) MEQ/L BUN 14 (7-17) mg/dL Creatinine 0.97 (0.52-1.04) mg/dL Estimated GFR 66.9 ML/MIN Glucose 149 H (74-106) mg/dL POC Glucometer 169 H 190 H (74 to 106) mg/dL Calcium 8.5 (8.4-10.2) mg/dL NT-Pro-B Natriuret Pep (<300) pg/mL Prealbumin 7.63 L (17.6-36.0) mg/dL ABO Group Rh Factor Antibody Screen (NEGATIVE) Radiology Exams: Radiology Procedures Category Date Time Status LOWER LEG Routine Exams 06/08/23 10:08 Completed Portable Chest [CHEST 1 VIEW (PORTABLE)] Stat Exams 06/08/23 06:23 Completed <EUGENIA WILHELM - Last Filed: 06/09/23 09:15> Vital Signs: Vital Signs - hr Temp Pulse Resp BP BP Pulse Ox 06/09/23 19:49 97.8 F 79 18 129/64 100 06/09/23 16:00 97.3 F 79 15 129/67 92 L 06/09/23 14:00 16 06/09/23 12:22 97.7 F 74 16 115/51 96 06/09/23 10:00 16 06/09/23 07:57 97.5 F 77 16 133/62 97 06/09/23 06:00 16 06/09/23 05:17 97.8 F 77 18 114/58 96 06/09/23 04:10 97.8 F 77 18 114/58 96 06/09/23 02:00 16 06/09/23 00:10 98.6 F 79 16 127/59 97 06/08/23 22:57 99.6 F 79 18 127/59 97 06/08/23 22:00 16 Pain Assessment - Last Documented Pain Intensity [Right Lower 7 Anterior] Pain Intensity [Right Lower 8 Anterior Knee] Pain Intensity 8 Pain Scale Used 0-10 Pain Scale Intake and Output: Intake & Output 06/07/23 06/08/23 06/09/23 06/10/23 11:59 11:59 11:59 11:59 Intake Total 880 890 Balance 880 890 Weight 122.9 kg Lab Results: Lab Results-Last 24 Hours 06/08/23 06/09/23 06/09/23 Range/Units 21:59 04:25 04:25 WBC 6.0 (4.0-10.5) x10^3/uL RBC 2.62 L (4.1-5.4) x10^6/uL Hgb 7.5 L (12.0-16.0) g/dL Hct 24.3 L (35-47) % MCV 92.7 (78-100) fL MCH 28.6 (26-32) pg MCHC 30.9 L (32-36) g/dL RDW 16.4 H (11.5-14.0) % Plt Count 112 L (150-450) x10^3/uL MPV 9.8 (7.5-11.0) fL Gran % 61.0 (36.0-66.0) % Immature Gran % (Auto) 0.3 (0.00-0.4) % Nucleat RBC Rel Count 0.0 (0.00-0.1) % Eos # (Auto) 0.13 (0-0.5) x10^3/uL Immature Gran # (Auto) 0.02 (0.00-0.03) x10^3u/L Absolute Lymphs (auto) 1.33 (1.0-4.6) x10^3/uL Absolute Monos (auto) 0.80 (0.0-1.3) x10^3/uL Absolute Nucleated RBC 0.00 (0.00-0.01) x10^3u/L Lymphocytes % 22.4 L (24.0-44.0) % Monocytes % 13.4 H (0.0-12.0) % Eosinophils % 2.2 (0.00-5.0) % Basophils % 0.7 (0.0-0.4) % Absolute Granulocytes 3.63 (1.4-6.9) x10^3/uL Basophils # 0.04 (0-0.4) x10^3/uL Sodium 134 L (137-145) mmol/L Potassium 4.0 (3.5-5.1) mmol/L Chloride 104 (98-107) mmol/L Carbon Dioxide 27 (22-30) mmol/L Anion Gap 6.0 (5-15) MEQ/L BUN 15 (7-17) mg/dL Creatinine 1.10 H (0.52-1.04) mg/dL Estimated GFR 57.5 ML/MIN Glucose 182 H (74-106) mg/dL POC Glucometer 190 H (74 to 106) mg/dL Hemoglobin A1c (4.5-6.0) % Calcium 8.0 L (8.4-10.2) mg/dL 06/09/23 06/09/23 06/09/23 Range/Units 04:25 07:27 12:06 WBC (4.0-10.5) x10^3/uL RBC (4.1-5.4) x10^6/uL Hgb (12.0-16.0) g/dL Hct (35-47) % MCV (78-100) fL MCH (26-32) pg MCHC (32-36) g/dL RDW (11.5-14.0) % Plt Count (150-450) x10^3/uL MPV (7.5-11.0) fL Gran % (36.0-66.0) % Immature Gran % (Auto) (0.00-0.4) % Nucleat RBC Rel Count (0.00-0.1) % Eos # (Auto) (0-0.5) x10^3/uL Immature Gran # (Auto) (0.00-0.03) x10^3u/L Absolute Lymphs (auto) (1.0-4.6) x10^3/uL Absolute Monos (auto) (0.0-1.3) x10^3/uL Absolute Nucleated RBC (0.00-0.01) x10^3u/L Lymphocytes % (24.0-44.0) % Monocytes % (0.0-12.0) % Eosinophils % (0.00-5.0) % Basophils % (0.0-0.4) % Absolute Granulocytes (1.4-6.9) x10^3/uL Basophils # (0-0.4) x10^3/uL Sodium (137-145) mmol/L Potassium (3.5-5.1) mmol/L Chloride (98-107) mmol/L Carbon Dioxide (22-30) mmol/L Anion Gap (5-15) MEQ/L BUN (7-17) mg/dL Creatinine (0.52-1.04) mg/dL Estimated GFR ML/MIN Glucose (74-106) mg/dL POC Glucometer 135 H 228 H (74 to 106) mg/dL Hemoglobin A1c 5.63 (4.5-6.0) % Calcium (8.4-10.2) mg/dL 06/09/23 06/09/23 Range/Units 16:56 21:08 WBC (4.0-10.5) x10^3/uL RBC (4.1-5.4) x10^6/uL Hgb (12.0-16.0) g/dL Hct (35-47) % MCV (78-100) fL MCH (26-32) pg MCHC (32-36) g/dL RDW (11.5-14.0) % Plt Count (150-450) x10^3/uL MPV (7.5-11.0) fL Gran % (36.0-66.0) % Immature Gran % (Auto) (0.00-0.4) % Nucleat RBC Rel Count (0.00-0.1) % Eos # (Auto) (0-0.5) x10^3/uL Immature Gran # (Auto) (0.00-0.03) x10^3u/L Absolute Lymphs (auto) (1.0-4.6) x10^3/uL Absolute Monos (auto) (0.0-1.3) x10^3/uL Absolute Nucleated RBC (0.00-0.01) x10^3u/L Lymphocytes % (24.0-44.0) % Monocytes % (0.0-12.0) % Eosinophils % (0.00-5.0) % Basophils % (0.0-0.4) % Absolute Granulocytes (1.4-6.9) x10^3/uL Basophils # (0-0.4) x10^3/uL Sodium (137-145) mmol/L Potassium (3.5-5.1) mmol/L Chloride (98-107) mmol/L Carbon Dioxide (22-30) mmol/L Anion Gap (5-15) MEQ/L BUN (7-17) mg/dL Creatinine (0.52-1.04) mg/dL Estimated GFR ML/MIN Glucose (74-106) mg/dL POC Glucometer 241 H 247 H (74 to 106) mg/dL Hemoglobin A1c (4.5-6.0) % Calcium (8.4-10.2) mg/dL Radiology Exams: Radiology Procedures Category Date Time Status LOWER LEG Routine Exams 06/08/23 10:08 Completed Portable Chest [CHEST 1 VIEW (PORTABLE)] Stat Exams 06/08/23 06:23 Completed <LACIE AMAYA - Last Filed: 06/09/23 21:51> Assessment/Plan (1) S/P BKA (below knee amputation) Current Visit: Yes Status: Acute Assessment & Plan: (1) S/P BKA (below knee amputation) Current Visit: Yes Status: Acute Assessment & Plan: -PODS#0 -Pain control/abx managed by ortho, currently on ceftazidime/daptomycin -Dressing changes per ortho 06/09: -Pain meds changed to [place]/diluadid -Ortho note reviewed, "Plan await antibiotic sensitivities in 1-2 more days.FDC then on a total of 5 postop days of appropriate antibiotics.Then may switch to p.o. antibiotics for additional 5 days. May change dressing with dried nonstick dressing postop day 5.May shower postop day 7.Nonweightbearing on the right lower extremity.Return to see me July 02 for suture removalAnd starting of a stump rn endoscopy. Return sooner if wound appears infected.May resume previous pain medications and may need additional pain medication on top of this for several weeks.I will be out of town for the next 3 daysBut may be contacted with questions [phone]." Code(s): Z89.519 - ACQUIRED ABSENCE OF UNSPECIFIED LEG BELOW KNEE (2) Neuropathy Current Visit: Yes Status: Acute Assessment & Plan: -Continue home medication gabapentin Code(s): G62.9 - POLYNEUROPATHY, UNSPECIFIED (3) GERD (gastroesophageal reflux disease) Current Visit: Yes Status: Acute Assessment & Plan: -Continue protonix Code(s): K21.9 - GASTRO-ESOPHAGEAL REFLUX DISEASE WITHOUT ESOPHAGITIS (4) Diabetes mellitus Current Visit: No Status: Acute Assessment & Plan: -ADA diet -SSI, monitor closely, may need adjustments -Continue home glargine -A1c pending Code(s): E11.9 - TYPE 2 DIABETES MELLITUS WITHOUT COMPLICATIONS (5) HTN (hypertension) Current Visit: No Status: Acute Assessment & Plan: -stable Code(s): I10 - ESSENTIAL (PRIMARY) HYPERTENSION (6) Anemia Current Visit: No Status: Acute Assessment & Plan: -chronic, hgb at 7.8 s/p surgery -H&H q6h, transfuse if hgb <7 -continue ferrous sulfate 06/09: -Stable at 7.5 VTE: resume anticoagulation when orhto okays it PPI: protonix Dispo: per Ortho recs, most likely 1-2 days Code(s): Z89.519 - ACQUIRED ABSENCE OF UNSPECIFIED LEG BELOW KNEE (2) Neuropathy Current Visit: Yes Status: Acute Code(s): G62.9 - POLYNEUROPATHY, UNSPECIFIED (3) GERD (gastroesophageal reflux disease) Current Visit: Yes Status: Acute Code(s): K21.9 - GASTRO-ESOPHAGEAL REFLUX DISEASE WITHOUT ESOPHAGITIS (4) Diabetes mellitus Current Visit: No Status: Acute Code(s): E11.9 - TYPE 2 DIABETES MELLITUS WITHOUT COMPLICATIONS (5) HTN (hypertension) Current Visit: No Status: Acute Code(s): I10 - ESSENTIAL (PRIMARY) HYPERTENSION (6) Anemia Current Visit: No Status: Acute Code(s): D64.9 - ANEMIA, UNSPECIFIED <EUGENIA WILHELM - Last Filed: 06/09/23 09:15> MOO Encounter - MOO Encounter Attestation MOO Encounter Attestation: "CLOTILDE Rdz andhavediscussed pertinent aspects of their care with Eugenia Wilhelm and agree with the history, physical exam (any modifications based on my personal exam will be noted below), assessment, and plan as outlined in original note. Please see immediately below for my summary of findings and additional assessment and plan along with any meaningful corrections/explanations to the Subjective/Objective portions of the MOO note will be noted." My portion of the encounter took place via telemedicine. -Patient reported 8-9/10 pain in the RLE. She is POD 1 after a right BKA for osteomyelitis. Antibiotics dictated by surgery pending culture results. Patient will need SNF at discharge. <LACIE AMAYA - Last Filed: 06/09/23 21:51>
[2023-06-09 05:10] LABS: Creatinine 1 1.1 mg/dL (0.52-1.04); EST GLOMERULAR FILTRATION RATE 57.5 ML/MIN
[2023-06-09] MEDS: PERCOCET TABLET 5/325MG PO PRN (05:27)
[2023-06-09] MEDS: Fortaz/Tazicef 2 GM in D5w 100ML Mini Bag 100 ML 100 ML IV SCH ×3 (07:39→23:24)
--- NOTE | 2023-06-09 07:48 | PCM.NOTE ---
Date and Time: 06/09/23 0742 Subjective Assessment: Moderate pain Postop day 1 status post right below-knee amputation for osteomyelitisNo eating and drinking okay Physical Exam - Narrative Narrative Physical Exam: Alert and oriented x 3 sitting up in bed Dressing clean dry and intact [place] drain removed easily by me and dressing rewrapped HemoglobinWith minimal change X-ray shows good BKA stump OBJECTIVE DATA Vital Signs: Vital Signs - 24 hr Temp Pulse Resp BP BP Pulse Ox 06/09/23 06:00 16 06/09/23 05:17 97.8 F 77 18 114/58 96 06/09/23 04:10 97.8 F 77 18 114/58 96 06/09/23 02:00 16 06/09/23 00:10 98.6 F 79 16 127/59 97 06/08/23 22:57 99.6 F 79 18 127/59 97 06/08/23 22:00 16 06/08/23 20:10 98.6 F 85 18 144/92 96 06/08/23 19:26 98.6 F 85 18 144/92 96 06/08/23 18:00 16 06/08/23 16:10 98.0 F 79 16 136/69 95 06/08/23 15:56 74 16 96 06/08/23 15:10 98.0 F 75 16 130/60 98 06/08/23 14:10 97.8 F 73 16 128/62 96 06/08/23 14:00 16 06/08/23 13:40 98.0 F 75 16 132/70 100 06/08/23 13:10 98.0 F 76 14 132/75 100 06/08/23 12:40 98.0 F 73 14 129/61 99 06/08/23 12:10 97.7 F 74 16 119/58 99 06/08/23 12:00 97.7 F 76 16 134/66 98 06/08/23 11:55 97.7 F 76 16 117/61 98 06/08/23 11:40 97.7 F 75 16 130/68 99 06/08/23 11:32 97.7 F 76 16 134/66 99 06/08/23 11:25 97.7 F 76 16 134/66 99 Pain Assessment - Last Documented Pain Intensity [Right Lower 7 Anterior] Pain Intensity [Right Lower 7 Anterior Knee] Pain Intensity 10 Pain Scale Used 0-10 Pain Scale Intake and Output: Intake & Output 06/06/23 06/07/23 06/08/23 06/09/23 11:59 11:59 11:59 11:59 Intake Total 880 Balance 880 Weight 122.9 kg Lab Results: Lab Results-Last 24 Hours 06/08/23 06/08/23 06/08/23 Range/Units 11:58 11:58 16:48 WBC 4.9 (4.0-10.5) x10^3/uL RBC 2.76 L (4.1-5.4) x10^6/uL Hgb 7.8 L (12.0-16.0) g/dL Hct 25.2 L (35-47) % MCV 91.3 (78-100) fL MCH 28.3 (26-32) pg MCHC 31.0 L (32-36) g/dL RDW 16.2 H (11.5-14.0) % Plt Count 124 L (150-450) x10^3/uL MPV 9.7 (7.5-11.0) fL Gran % (36.0-66.0) % Immature Gran % (Auto) (0.00-0.4) % Nucleat RBC Rel Count (0.00-0.1) % Eos # (Auto) (0-0.5) x10^3/uL Immature Gran # (Auto) (0.00-0.03) x10^3u/L Absolute Lymphs (auto) (1.0-4.6) x10^3/uL Absolute Monos (auto) (0.0-1.3) x10^3/uL Absolute Nucleated RBC (0.00-0.01) x10^3u/L Lymphocytes % (24.0-44.0) % Monocytes % (0.0-12.0) % Eosinophils % (0.00-5.0) % Basophils % (0.0-0.4) % Absolute Granulocytes (1.4-6.9) x10^3/uL Basophils # (0-0.4) x10^3/uL Sodium 136 L (137-145) mmol/L Potassium 4.3 (3.5-5.1) mmol/L Chloride 104 (98-107) mmol/L Carbon Dioxide 27 (22-30) mmol/L Anion Gap 9.1 (5-15) MEQ/L BUN 14 (7-17) mg/dL Creatinine 0.97 (0.52-1.04) mg/dL Estimated GFR 66.9 ML/MIN Glucose 149 H (74-106) mg/dL POC Glucometer 169 H (74 to 106) mg/dL Calcium 8.5 (8.4-10.2) mg/dL Prealbumin 7.63 L (17.6-36.0) mg/dL 06/08/23 06/09/23 06/09/23 Range/Units 21:59 04:25 04:25 WBC 6.0 (4.0-10.5) x10^3/uL RBC 2.62 L (4.1-5.4) x10^6/uL Hgb 7.5 L (12.0-16.0) g/dL Hct 24.3 L (35-47) % MCV 92.7 (78-100) fL MCH 28.6 (26-32) pg MCHC 30.9 L (32-36) g/dL RDW 16.4 H (11.5-14.0) % Plt Count 112 L (150-450) x10^3/uL MPV 9.8 (7.5-11.0) fL Gran % 61.0 (36.0-66.0) % Immature Gran % (Auto) 0.3 (0.00-0.4) % Nucleat RBC Rel Count 0.0 (0.00-0.1) % Eos # (Auto) 0.13 (0-0.5) x10^3/uL Immature Gran # (Auto) 0.02 (0.00-0.03) x10^3u/L Absolute Lymphs (auto) 1.33 (1.0-4.6) x10^3/uL Absolute Monos (auto) 0.80 (0.0-1.3) x10^3/uL Absolute Nucleated RBC 0.00 (0.00-0.01) x10^3u/L Lymphocytes % 22.4 L (24.0-44.0) % Monocytes % 13.4 H (0.0-12.0) % Eosinophils % 2.2 (0.00-5.0) % Basophils % 0.7 (0.0-0.4) % Absolute Granulocytes 3.63 (1.4-6.9) x10^3/uL Basophils # 0.04 (0-0.4) x10^3/uL Sodium 134 L (137-145) mmol/L Potassium 4.0 (3.5-5.1) mmol/L Chloride 104 (98-107) mmol/L Carbon Dioxide 27 (22-30) mmol/L Anion Gap 6.0 (5-15) MEQ/L BUN 15 (7-17) mg/dL Creatinine 1.10 H (0.52-1.04) mg/dL Estimated GFR 57.5 ML/MIN Glucose 182 H (74-106) mg/dL POC Glucometer 190 H (74 to 106) mg/dL Calcium 8.0 L (8.4-10.2) mg/dL Prealbumin (17.6-36.0) mg/dL 06/09/23 Range/Units 07:27 WBC (4.0-10.5) x10^3/uL RBC (4.1-5.4) x10^6/uL Hgb (12.0-16.0) g/dL Hct (35-47) % MCV (78-100) fL MCH (26-32) pg MCHC (32-36) g/dL RDW (11.5-14.0) % Plt Count (150-450) x10^3/uL MPV (7.5-11.0) fL Gran % (36.0-66.0) % Immature Gran % (Auto) (0.00-0.4) % Nucleat RBC Rel Count (0.00-0.1) % Eos # (Auto) (0-0.5) x10^3/uL Immature Gran # (Auto) (0.00-0.03) x10^3u/L Absolute Lymphs (auto) (1.0-4.6) x10^3/uL Absolute Monos (auto) (0.0-1.3) x10^3/uL Absolute Nucleated RBC (0.00-0.01) x10^3u/L Lymphocytes % (24.0-44.0) % Monocytes % (0.0-12.0) % Eosinophils % (0.00-5.0) % Basophils % (0.0-0.4) % Absolute Granulocytes (1.4-6.9) x10^3/uL Basophils # (0-0.4) x10^3/uL Sodium (137-145) mmol/L Potassium (3.5-5.1) mmol/L Chloride (98-107) mmol/L Carbon Dioxide (22-30) mmol/L Anion Gap (5-15) MEQ/L BUN (7-17) mg/dL Creatinine (0.52-1.04) mg/dL Estimated GFR ML/MIN Glucose (74-106) mg/dL POC Glucometer 135 H (74 to 106) mg/dL Calcium (8.4-10.2) mg/dL Prealbumin (17.6-36.0) mg/dL Radiology Exams: Radiology Procedures Category Date Time Status LOWER LEG Routine Exams 06/08/23 10:08 Completed Portable Chest [CHEST 1 VIEW (PORTABLE)] Stat Exams 06/08/23 06:23 Completed Assessment/Plan (1) S/P BKA (below knee amputation) Current Visit: Yes Status: Acute Assessment & Plan: Doing well status post right BKA Drain removed today. Plan await antibiotic sensitivities in 1-2 more days.jail then on a total of 5 postop days of appropriate antibiotics.Then may switch to p.o. antibiotics for additional 5 days. May change dressing with dried nonstick dressing postop day 5.May shower postop day 7.Nonweightbearing on the right lower extremity.Return to see me July 02 for suture removalAnd starting of a stump tool coordinator. Return sooner if wound appears infected.May resume previous pain medications and may need additional pain medication on top of this for several weeks.I will be out of town for the next 3 daysBut may be contacted with questions [phone] Code(s): Z89.519 - ACQUIRED ABSENCE OF UNSPECIFIED LEG BELOW KNEE
[2023-06-09] MEDS: Lantus Insulin SQ SCH ×2 (09:15→23:27)
[2023-06-09] MEDS: Sodium Chloride 0.9% 1000 ML 1,000 ML IV SCH (09:15)
[2023-06-09] MEDS: Klor Con PO SCH ×2 (09:16→23:25)
[2023-06-09] MEDS: Hydromorphone 1 mg/ml Injection IV PRN ×3 (09:16→19:53)
[2023-06-09] MEDS: Aldactone 25 MG PO SCH (09:16)
[2023-06-09] MEDS: Protonix 40MG Tablet PO SCH ×2 (09:17→23:25)
[2023-06-09] MEDS: DEMADEX 20 MG PO SCH ×2 (09:17→17:31)
[2023-06-09] MEDS: NEURONTIN PO SCH ×4 (09:17→23:26)
[2023-06-09] MEDS: FEOSOL 325 MG PO SCH (09:17)
[2023-06-09] MEDS: SODIUM CHLORIDE FLUSH IV SCH (10:53)
[2023-06-09] MEDS: DAPTOMYCIN IV SCH (10:53)
[2023-06-09] MEDS: LACTULOSE 20 GM/30ML UD CUP PO SCH ×4 (10:53→23:24)
[2023-06-09] MEDS: ECOTRIN 81 MG PO SCH (10:53)
[2023-06-09] MEDS: NORCO 5/325 MG PO PRN ×3 (12:28→23:24)
[2023-06-09] MEDS: HUMALOG SQ PRN ×3 (12:28→23:28)
--- NOTE | 2023-06-09 16:43 | PCM.NOTE ---
Date and Time: 06/09/23 1621 Objective Exam Wound Assessment: Skin/Wound Assessment Wound/Incision Assessment Start: 06/08/23 08:05 Text: Status: Active Freq: Q4H Protocol: Document 06/09/23 15:00 KD (Rec: 06/09/23 15:07 KD [id number]) Wound/Incision Assessment Left Posterior Buttock Wound Assessment Shift Assessment Wound Type Pressure Ulcer Wound Stage Stage II General Appearance Open to air Length (cm) (cm) 2 Width (cm) (cm) 2 Wound Bed Greatest Portion Shiny,Yellow (Slough) Wound Bed Lesser Portion Red (Granulation),Shiny Comment Barrier cream with zinc applied, picture in chart Right Lower Knee Wound Assessment Shift Assessment Wound Type Amputation Dressing Status Dry & Intact,Reinforced Drainage Amount None Primary Dressing Gauze Pads Secondary Dressing Gauze Roll/Wrap Comment Dr. Agarwal was in to see pt this AM & reinforced dressing Wound Photo Photo Taken Yes Date: 06/09/23 Time: 11:15 OBJECTIVE DATA Vital Signs: Vital Signs - 24 hr Temp Pulse Resp BP BP Pulse Ox 06/09/23 14:00 16 06/09/23 12:22 97.7 F 74 16 115/51 96 06/09/23 10:00 16 06/09/23 07:57 97.5 F 77 16 133/62 97 06/09/23 06:00 16 06/09/23 05:17 97.8 F 77 18 114/58 96 06/09/23 04:10 97.8 F 77 18 114/58 96 06/09/23 02:00 16 06/09/23 00:10 98.6 F 79 16 127/59 97 06/08/23 22:57 99.6 F 79 18 127/59 97 06/08/23 22:00 16 06/08/23 20:10 98.6 F 85 18 144/92 96 06/08/23 19:26 98.6 F 85 18 144/92 96 06/08/23 18:00 16 Pain Assessment - Last Documented Pain Intensity [Right Lower 7 Anterior] Pain Intensity [Right Lower 8 Anterior Knee] Pain Intensity 8 Pain Scale Used 0-10 Pain Scale Intake and Output: Intake & Output 06/07/23 06/08/23 06/09/23 06/10/23 06:59 06:59 06:59 06:59 Intake Total 880 Balance 880 Weight 278 kg 122.9 kg Lab Results: Lab Results-Last 24 Hours 06/08/23 06/08/23 06/09/23 Range/Units 16:48 21:59 04:25 WBC 6.0 (4.0-10.5) x10^3/uL RBC 2.62 L (4.1-5.4) x10^6/uL Hgb 7.5 L (12.0-16.0) g/dL Hct 24.3 L (35-47) % MCV 92.7 (78-100) fL MCH 28.6 (26-32) pg MCHC 30.9 L (32-36) g/dL RDW 16.4 H (11.5-14.0) % Plt Count 112 L (150-450) x10^3/uL MPV 9.8 (7.5-11.0) fL Gran % 61.0 (36.0-66.0) % Immature Gran % (Auto) 0.3 (0.00-0.4) % Nucleat RBC Rel Count 0.0 (0.00-0.1) % Eos # (Auto) 0.13 (0-0.5) x10^3/uL Immature Gran # (Auto) 0.02 (0.00-0.03) x10^3u/L Absolute Lymphs (auto) 1.33 (1.0-4.6) x10^3/uL Absolute Monos (auto) 0.80 (0.0-1.3) x10^3/uL Absolute Nucleated RBC 0.00 (0.00-0.01) x10^3u/L Lymphocytes % 22.4 L (24.0-44.0) % Monocytes % 13.4 H (0.0-12.0) % Eosinophils % 2.2 (0.00-5.0) % Basophils % 0.7 (0.0-0.4) % Absolute Granulocytes 3.63 (1.4-6.9) x10^3/uL Basophils # 0.04 (0-0.4) x10^3/uL Sodium (137-145) mmol/L Potassium (3.5-5.1) mmol/L Chloride (98-107) mmol/L Carbon Dioxide (22-30) mmol/L Anion Gap (5-15) MEQ/L BUN (7-17) mg/dL Creatinine (0.52-1.04) mg/dL Estimated GFR ML/MIN Glucose (74-106) mg/dL POC Glucometer 169 H 190 H (74 to 106) mg/dL Hemoglobin A1c (4.5-6.0) % Calcium (8.4-10.2) mg/dL 06/09/23 06/09/23 06/09/23 Range/Units 04:25 04:25 07:27 WBC (4.0-10.5) x10^3/uL RBC (4.1-5.4) x10^6/uL Hgb (12.0-16.0) g/dL Hct (35-47) % MCV (78-100) fL MCH (26-32) pg MCHC (32-36) g/dL RDW (11.5-14.0) % Plt Count (150-450) x10^3/uL MPV (7.5-11.0) fL Gran % (36.0-66.0) % Immature Gran % (Auto) (0.00-0.4) % Nucleat RBC Rel Count (0.00-0.1) % Eos # (Auto) (0-0.5) x10^3/uL Immature Gran # (Auto) (0.00-0.03) x10^3u/L Absolute Lymphs (auto) (1.0-4.6) x10^3/uL Absolute Monos (auto) (0.0-1.3) x10^3/uL Absolute Nucleated RBC (0.00-0.01) x10^3u/L Lymphocytes % (24.0-44.0) % Monocytes % (0.0-12.0) % Eosinophils % (0.00-5.0) % Basophils % (0.0-0.4) % Absolute Granulocytes (1.4-6.9) x10^3/uL Basophils # (0-0.4) x10^3/uL Sodium 134 L (137-145) mmol/L Potassium 4.0 (3.5-5.1) mmol/L Chloride 104 (98-107) mmol/L Carbon Dioxide 27 (22-30) mmol/L Anion Gap 6.0 (5-15) MEQ/L BUN 15 (7-17) mg/dL Creatinine 1.10 H (0.52-1.04) mg/dL Estimated GFR 57.5 ML/MIN Glucose 182 H (74-106) mg/dL POC Glucometer 135 H (74 to 106) mg/dL Hemoglobin A1c 5.63 (4.5-6.0) % Calcium 8.0 L (8.4-10.2) mg/dL 06/09/23 Range/Units 12:06 WBC (4.0-10.5) x10^3/uL RBC (4.1-5.4) x10^6/uL Hgb (12.0-16.0) g/dL Hct (35-47) % MCV (78-100) fL MCH (26-32) pg MCHC (32-36) g/dL RDW (11.5-14.0) % Plt Count (150-450) x10^3/uL MPV (7.5-11.0) fL Gran % (36.0-66.0) % Immature Gran % (Auto) (0.00-0.4) % Nucleat RBC Rel Count (0.00-0.1) % Eos # (Auto) (0-0.5) x10^3/uL Immature Gran # (Auto) (0.00-0.03) x10^3u/L Absolute Lymphs (auto) (1.0-4.6) x10^3/uL Absolute Monos (auto) (0.0-1.3) x10^3/uL Absolute Nucleated RBC (0.00-0.01) x10^3u/L Lymphocytes % (24.0-44.0) % Monocytes % (0.0-12.0) % Eosinophils % (0.00-5.0) % Basophils % (0.0-0.4) % Absolute Granulocytes (1.4-6.9) x10^3/uL Basophils # (0-0.4) x10^3/uL Sodium (137-145) mmol/L Potassium (3.5-5.1) mmol/L Chloride (98-107) mmol/L Carbon Dioxide (22-30) mmol/L Anion Gap (5-15) MEQ/L BUN (7-17) mg/dL Creatinine (0.52-1.04) mg/dL Estimated GFR ML/MIN Glucose (74-106) mg/dL POC Glucometer 228 H (74 to 106) mg/dL Hemoglobin A1c (4.5-6.0) % Calcium (8.4-10.2) mg/dL Radiology Exams: Radiology Procedures Category Date Time Status LOWER LEG Routine Exams 06/08/23 10:08 Completed Portable Chest [CHEST 1 VIEW (PORTABLE)] Stat Exams 06/08/23 06:23 Completed
[2023-06-09] MEDS: ZOCOR 20MG PO SCH (23:25)
[2023-06-09] MEDS: MELATONIN PO SCH (23:25)
[2023-06-10] MEDS: Hydromorphone 1 mg/ml Injection IV PRN ×6 (00:53→22:07)
[2023-06-10] MEDS: Sodium Chloride 0.9% 1000 ML 1,000 ML IV SCH ×2 (02:40→18:04)
[2023-06-10] MEDS: NORCO 5/325 MG PO PRN (04:22)
--- NOTE | 2023-06-10 05:05 | PCM.NOTE ---
Date and Time: 06/10/23 0504 Subjective Assessment: is a 58 year old female with a pmhx of DM, HTN, obesity, GERD, neuropathy, CHF, recent surgical repair/graft of right ankle (04/28/23) with Dr. Soto, and chronic anemia who presents to the hospital s/p right BKA (06/08/23). Hospitalist team has been consulted for medical management. Patient e ndorsing right extremity pain postoperatively. 06/09/23: Met with patient bedside. Endorses improved pain with Diluadid, still rating it at 8/10 on numerical pain scale. No overnight events noted. Reviewed Ortho progress note, drain was removed today. Plan for IP for about two more days. Patient will need a total of 5 post op days of IV antibiotics pending cultures, then 5 more days of oral antibiotics. Dressing change on Day 5 with nonstick dressing. Shower on postop day 7. NWB on RLE. Return appt on 07/02/23. Discussed pain control with patient and ortho and decided on [place]/Dilaudid alt for now. Patient takes 2mg of Dilaudid at [place] on regular basis. Denies fever,cough, sob, cp, abdominal pain, KERR, dizziness, N/V/D. 06/10/23: Met with patient bedside. S/P RBKA PODS#2, doing well. Endorses continued pain to her right thigh 8/10, Patient states she would like her norco scheduled as she feels she has not gotten it in a timely manner. No overnight events. Lab findings stable. Plan it to continue abx pending cultures. She will d/c to SNF on discharge. <EUGENIA WILHELM - Last Filed: 06/10/23 09:43> Date and Time: 06/10/238 <LACIE AMAYA - Last Filed: 06/10/23 21:40> - Review of Systems Constitutional: No Symptoms Eyes: No Symptoms Ears, Nose, & Throat: No Symptoms Respiratory: No Symptoms Cardiac: No Symptoms Abdominal/Gastrointestinal: No Symptoms Genitourinary Symptoms: No Symptoms Musculoskeletal: Other (RBKA 8/10 pain) Neurological: No Symptoms Psychological: No Symptoms Endocrine: No Symptoms Hematologic/Lymphatic: No Symptoms Immunological/Allergic: No Symptoms <EUGENIA WILHELM - Last Filed: 06/10/23 09:43> Objective Exam General Appearance: no apparent distress Neurologic Exam: alert, oriented x 3, cooperative Skin Exam: normal color Wound Assessment: Skin/Wound Assessment Wound/Incision Assessment Start: 06/08/23 08:05 Text: Status: Active Freq: Q4H Protocol: Document 06/10/23 04:00 LB (Rec: 06/10/23 04:26 LB [id number]) Wound/Incision Assessment Left Posterior Buttock Wound Assessment Shift Assessment Wound Type Pressure Ulcer Wound Stage Stage II General Appearance Open to air Length (cm) (cm) 2 Width (cm) (cm) 2 Wound Bed Greatest Portion Shiny,Yellow (Slough) Wound Bed Lesser Portion Red (Granulation),Shiny Comment Barrier cream with zinc applied PRN. Right Lower Knee Wound Assessment Shift Assessment Wound Type Amputation Wound Stage Non Pressure Wound Dressing Status Dry & Intact Drainage Amount None Primary Dressing Gauze Pads Secondary Dressing Gauze Roll/Wrap Comment dressing to remain in place until postop day 5 reinforce with 4x4 and coban as needed.- CDI at this time-remains true Wound Photo Photo Taken Yes Eye Exam: PERRL Ears, Nose, Throat Exam: normal ENT inspection Respiratory Exam: normal breath sounds, lungs clear Cardiovascular Exam: regular rate/rhythm, normal heart sounds Gastrointestinal/Abdomen Exam: soft, normal bowel sounds Extremity Exam: amputations (RBKA covered in surgical dressing) Back Exam: normal inspection Pelvic Exam: deferred Rectal Exam: deferred <EUGENIA WILHELM - Last Filed: 06/10/23 09:43> Wound Assessment: Skin/Wound Assessment Wound/Incision Assessment Start: 06/08/23 08:05 Text: Status: Active Freq: Q6H Protocol: Document 06/10/23 20:00 KS (Rec: 06/10/23 21:10 KS [id number]) Wound/Incision Assessment Left Posterior Buttock Wound Assessment Shift Assessment Wound Type Pressure Ulcer Wound Stage Stage II General Appearance Open to air Length (cm) (cm) 2 Width (cm) (cm) 2 Wound Bed Greatest Portion Shiny,Yellow (Slough) Wound Bed Lesser Portion Red (Granulation),Shiny Comment Barrier cream with zinc applied PRN. Right Lower Knee Wound Assessment Shift Assessment Wound Type Amputation Wound Stage Non Pressure Wound Dressing Status Dry & Intact Drainage Amount None Primary Dressing Gauze Pads Secondary Dressing Gauze Roll/Wrap Comment dressing to remain in place , CDI at this time <LACIE AMAYA - Last Filed: 06/10/23 21:40> OBJECTIVE DATA Vital Signs: Vital Signs - 24 hr Temp Pulse Resp BP Pulse Ox 06/10/23 04:00 97.9 F 77 17 134/70 95 06/10/23 02:00 18 06/09/23 23:49 97.8 F 65 18 105/62 97 06/09/23 22:00 18 06/09/23 19:49 97.8 F 79 18 129/64 100 06/09/23 16:00 97.3 F 79 15 129/67 92 L 06/09/23 14:00 16 06/09/23 12:22 97.7 F 74 16 115/51 96 06/09/23 10:00 16 06/09/23 07:57 97.5 F 77 16 133/62 97 06/09/23 06:00 16 06/09/23 05:17 97.8 F 77 18 114/58 96 Pain Assessment - Last Documented Pain Intensity [Right Lower 7 Anterior] Pain Intensity [Right Lower 8 Anterior Knee] Pain Intensity 8 Pain Scale Used 0-10 Pain Scale Intake and Output: Intake & Output 06/07/23 06/08/23 06/09/23 06/10/23 11:59 11:59 11:59 11:59 Intake Total 880 2167 Balance 880 2167 Weight 122.9 kg Lab Results: Lab Results-Last 24 Hours 06/09/23 06/09/23 06/09/23 Range/Units 04:25 04:25 04:25 WBC 6.0 (4.0-10.5) x10^3/uL RBC 2.62 L (4.1-5.4) x10^6/uL Hgb 7.5 L (12.0-16.0) g/dL Hct 24.3 L (35-47) % MCV 92.7 (78-100) fL MCH 28.6 (26-32) pg MCHC 30.9 L (32-36) g/dL RDW 16.4 H (11.5-14.0) % Plt Count 112 L (150-450) x10^3/uL MPV 9.8 (7.5-11.0) fL Gran % 61.0 (36.0-66.0) % Immature Gran % (Auto) 0.3 (0.00-0.4) % Nucleat RBC Rel Count 0.0 (0.00-0.1) % Eos # (Auto) 0.13 (0-0.5) x10^3/uL Immature Gran # (Auto) 0.02 (0.00-0.03) x10^3u/L Absolute Lymphs (auto) 1.33 (1.0-4.6) x10^3/uL Absolute Monos (auto) 0.80 (0.0-1.3) x10^3/uL Absolute Nucleated RBC 0.00 (0.00-0.01) x10^3u/L Lymphocytes % 22.4 L (24.0-44.0) % Monocytes % 13.4 H (0.0-12.0) % Eosinophils % 2.2 (0.00-5.0) % Basophils % 0.7 (0.0-0.4) % Absolute Granulocytes 3.63 (1.4-6.9) x10^3/uL Basophils # 0.04 (0-0.4) x10^3/uL Sodium 134 L (137-145) mmol/L Potassium 4.0 (3.5-5.1) mmol/L Chloride 104 (98-107) mmol/L Carbon Dioxide 27 (22-30) mmol/L Anion Gap 6.0 (5-15) MEQ/L BUN 15 (7-17) mg/dL Creatinine 1.10 H (0.52-1.04) mg/dL Estimated GFR 57.5 ML/MIN Glucose 182 H (74-106) mg/dL POC Glucometer (74 to 106) mg/dL Hemoglobin A1c 5.63 (4.5-6.0) % Calcium 8.0 L (8.4-10.2) mg/dL 06/09/23 06/09/23 06/09/23 Range/Units 07:27 12:06 16:56 WBC (4.0-10.5) x10^3/uL RBC (4.1-5.4) x10^6/uL Hgb (12.0-16.0) g/dL Hct (35-47) % MCV (78-100) fL MCH (26-32) pg MCHC (32-36) g/dL RDW (11.5-14.0) % Plt Count (150-450) x10^3/uL MPV (7.5-11.0) fL Gran % (36.0-66.0) % Immature Gran % (Auto) (0.00-0.4) % Nucleat RBC Rel Count (0.00-0.1) % Eos # (Auto) (0-0.5) x10^3/uL Immature Gran # (Auto) (0.00-0.03) x10^3u/L Absolute Lymphs (auto) (1.0-4.6) x10^3/uL Absolute Monos (auto) (0.0-1.3) x10^3/uL Absolute Nucleated RBC (0.00-0.01) x10^3u/L Lymphocytes % (24.0-44.0) % Monocytes % (0.0-12.0) % Eosinophils % (0.00-5.0) % Basophils % (0.0-0.4) % Absolute Granulocytes (1.4-6.9) x10^3/uL Basophils # (0-0.4) x10^3/uL Sodium (137-145) mmol/L Potassium (3.5-5.1) mmol/L Chloride (98-107) mmol/L Carbon Dioxide (22-30) mmol/L Anion Gap (5-15) MEQ/L BUN (7-17) mg/dL Creatinine (0.52-1.04) mg/dL Estimated GFR ML/MIN Glucose (74-106) mg/dL POC Glucometer 135 H 228 H 241 H (74 to 106) mg/dL Hemoglobin A1c (4.5-6.0) % Calcium (8.4-10.2) mg/dL 06/09/23 Range/Units 21:08 WBC (4.0-10.5) x10^3/uL RBC (4.1-5.4) x10^6/uL Hgb (12.0-16.0) g/dL Hct (35-47) % MCV (78-100) fL MCH (26-32) pg MCHC (32-36) g/dL RDW (11.5-14.0) % Plt Count (150-450) x10^3/uL MPV (7.5-11.0) fL Gran % (36.0-66.0) % Immature Gran % (Auto) (0.00-0.4) % Nucleat RBC Rel Count (0.00-0.1) % Eos # (Auto) (0-0.5) x10^3/uL Immature Gran # (Auto) (0.00-0.03) x10^3u/L Absolute Lymphs (auto) (1.0-4.6) x10^3/uL Absolute Monos (auto) (0.0-1.3) x10^3/uL Absolute Nucleated RBC (0.00-0.01) x10^3u/L Lymphocytes % (24.0-44.0) % Monocytes % (0.0-12.0) % Eosinophils % (0.00-5.0) % Basophils % (0.0-0.4) % Absolute Granulocytes (1.4-6.9) x10^3/uL Basophils # (0-0.4) x10^3/uL Sodium (137-145) mmol/L Potassium (3.5-5.1) mmol/L Chloride (98-107) mmol/L Carbon Dioxide (22-30) mmol/L Anion Gap (5-15) MEQ/L BUN (7-17) mg/dL Creatinine (0.52-1.04) mg/dL Estimated GFR ML/MIN Glucose (74-106) mg/dL POC Glucometer 247 H (74 to 106) mg/dL Hemoglobin A1c (4.5-6.0) % Calcium (8.4-10.2) mg/dL Radiology Exams: Radiology Procedures Category Date Time Status LOWER LEG Routine Exams 06/08/23 10:08 Completed Portable Chest [CHEST 1 VIEW (PORTABLE)] Stat Exams 06/08/23 06:23 Completed <EUGENIA WILHELM - Last Filed: 06/10/23 09:43> Vital Signs: Vital Signs - 24 hr Temp Pulse Resp BP Pulse Ox 06/10/23 20:00 97.9 F 79 16 129/64 93 L 06/10/23 16:00 97.5 F 82 16 120/61 97 06/10/23 12:00 16 06/10/23 11:48 98.1 F 82 16 131/66 93 L 06/10/23 08:00 97.9 F 73 16 109/53 94 L 06/10/23 06:00 17 06/10/23 04:00 97.9 F 77 17 134/70 95 06/10/23 02:00 18 06/09/23 23:49 97.8 F 65 18 105/62 97 06/09/23 22:00 18 Pain Assessment - Last Documented Pain Intensity [Right Lower 7 Anterior] Pain Intensity [Right Lower 8 Anterior Knee] Pain Intensity 5 Pain Scale Used 0-10 Pain Scale Intake and Output: Intake & Output 06/08/23 06/09/23 06/10/23 06/11/23 11:59 11:59 11:59 11:59 Intake Total 880 2167 Balance 880 2167 Weight 122.9 kg 122.9 kg Lab Results: Lab Results-Last 24 Hours 06/10/23 06/10/23 06/10/23 Range/Units 04:37 04:37 08:08 WBC 5.4 (4.0-10.5) x10^3/uL RBC 2.79 L (4.1-5.4) x10^6/uL Hgb 8.1 L (12.0-16.0) g/dL Hct 25.8 L (35-47) % MCV 92.5 (78-100) fL MCH 29.0 (26-32) pg MCHC 31.4 L (32-36) g/dL RDW 16.0 H (11.5-14.0) % Plt Count 109 L (150-450) x10^3/uL MPV 10.0 (7.5-11.0) fL Gran % 62.0 (36.0-66.0) % Immature Gran % (Auto) 0.4 (0.00-0.4) % Nucleat RBC Rel Count 0.0 (0.00-0.1) % Eos # (Auto) 0.22 (0-0.5) x10^3/uL Immature Gran # (Auto) 0.02 (0.00-0.03) x10^3u/L Absolute Lymphs (auto) 1.14 (1.0-4.6) x10^3/uL Absolute Monos (auto) 0.64 (0.0-1.3) x10^3/uL Absolute Nucleated RBC 0.00 (0.00-0.01) x10^3u/L Lymphocytes % 21.2 L (24.0-44.0) % Monocytes % 11.9 (0.0-12.0) % Eosinophils % 4.1 (0.00-5.0) % Basophils % 0.4 (0.0-0.4) % Absolute Granulocytes 3.35 (1.4-6.9) x10^3/uL Basophils # 0.02 (0-0.4) x10^3/uL Sodium 135 L (137-145) mmol/L Potassium 3.6 (3.5-5.1) mmol/L Chloride 99 (98-107) mmol/L Carbon Dioxide 30 (22-30) mmol/L Anion Gap 8.8 (5-15) MEQ/L BUN 16 (7-17) mg/dL Creatinine 1.05 H (0.52-1.04) mg/dL Estimated GFR 60.8 ML/MIN Glucose 235 H (74-106) mg/dL POC Glucometer 219 H (74 to 106) mg/dL Calcium 8.1 L (8.4-10.2) mg/dL 06/10/23 06/10/23 06/10/23 Range/Units 11:37 16:20 21:03 WBC (4.0-10.5) x10^3/uL RBC (4.1-5.4) x10^6/uL Hgb (12.0-16.0) g/dL Hct (35-47) % MCV (78-100) fL MCH (26-32) pg MCHC (32-36) g/dL RDW (11.5-14.0) % Plt Count (150-450) x10^3/uL MPV (7.5-11.0) fL Gran % (36.0-66.0) % Immature Gran % (Auto) (0.00-0.4) % Nucleat RBC Rel Count (0.00-0.1) % Eos # (Auto) (0-0.5) x10^3/uL Immature Gran # (Auto) (0.00-0.03) x10^3u/L Absolute Lymphs (auto) (1.0-4.6) x10^3/uL Absolute Monos (auto) (0.0-1.3) x10^3/uL Absolute Nucleated RBC (0.00-0.01) x10^3u/L Lymphocytes % (24.0-44.0) % Monocytes % (0.0-12.0) % Eosinophils % (0.00-5.0) % Basophils % (0.0-0.4) % Absolute Granulocytes (1.4-6.9) x10^3/uL Basophils # (0-0.4) x10^3/uL Sodium (137-145) mmol/L Potassium (3.5-5.1) mmol/L Chloride (98-107) mmol/L Carbon Dioxide (22-30) mmol/L Anion Gap (5-15) MEQ/L BUN (7-17) mg/dL Creatinine (0.52-1.04) mg/dL Estimated GFR ML/MIN Glucose (74-106) mg/dL POC Glucometer 206 H 190 H 170 H (74 to 106) mg/dL Calcium (8.4-10.2) mg/dL Multi-Disciplinary Progress Notes: Multi-Disciplinary Progress Notes 06/10/23 10:06 Case Management Note by Ayaka Mclena S/W PATIENT- SHE CONTINUES TO PLAN TO RETURN TO [facility] AT TIME OF DC Initialized on 06/10/23 10:06 - END OF NOTE <LACIE AMAYA - Last Filed: 06/10/23 21:40> Assessment/Plan (1) S/P BKA (below knee amputation) Current Visit: Yes Status: Acute Qualifiers: Assessment & Plan: -PODS#0 -Pain control/abx managed by ortho, currently on ceftazidime/daptomycin -Dressing changes per ortho 06/09: -Pain meds changed to [place]/diluadid -Ortho note reviewed, "Plan await antibiotic sensitivities in 1-2 more days.retirement then on a total of 5 postop days of appropriate antibiotics.Then may switch to p.o. antibiotics for additional 5 days. 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 Return sooner if wound appears infected.May resume previous pain medications and may need additional pain medication on top of this for several weeks.I will be out of town for the next 3 daysBut may be contacted with questions [phone]." 06/10: -Per ortho continue ASA 81mg for anticoag Code(s): Z89.519 - ACQUIRED ABSENCE OF UNSPECIFIED LEG BELOW KNEE (2) Neuropathy Current Visit: Yes Status: Acute Assessment & Plan: -Continue home medication gabapentin Code(s): G62.9 - POLYNEUROPATHY, UNSPECIFIED (3) GERD (gastroesophageal reflux disease) Current Visit: Yes Status: Acute Assessment & Plan: -Continue protonix Code(s): K21.9 - GASTRO-ESOPHAGEAL REFLUX DISEASE WITHOUT ESOPHAGITIS (4) Diabetes mellitus Current Visit: No Status: Acute Assessment & Plan: -ADA diet -SSI, monitor closely, may need adjustments -Continue home glargine -A1c pending 06/10: -A1c 5.63, blood glucose levels stable Code(s): E11.9 - TYPE 2 DIABETES MELLITUS WITHOUT COMPLICATIONS (5) HTN (hypertension) Current Visit: No Status: Acute Assessment & Plan: -stable Code(s): I10 - ESSENTIAL (PRIMARY) HYPERTENSION (6) Anemia Current Visit: No Status: Acute Assessment & Plan: -chronic, hgb at 7.8 s/p surgery -H&H q6h, transfuse if hgb <7 -continue ferrous sulfate 06/09: -Stable at 7.5 06/10 -Stable at 8.1 VTE: ASA PPI: protonix Dispo: per Ortho recs, most likely 1-2 days Code(s): Z89.519 - ACQUIRED ABSENCE OF UNSPECIFIED LEG BELOW KNEE (2) Neuropathy Current Visit: Yes Status: Acute Code(s): G62.9 - POLYNEUROPATHY, UNSPECIFIED (3) GERD (gastroesophageal reflux disease) Current Visit: Yes Status: Acute Code(s): K21.9 - GASTRO-ESOPHAGEAL REFLUX DISEASE WITHOUT ESOPHAGITIS (4) Diabetes mellitus Current Visit: No Status: Acute Code(s): E11.9 - TYPE 2 DIABETES MELLITUS WITHOUT COMPLICATIONS (5) HTN (hypertension) Current Visit: No Status: Acute Code(s): I10 - ESSENTIAL (PRIMARY) HYPERTENSION (6) Anemia Current Visit: No Status: Acute Code(s): D64.9 - ANEMIA, UNSPECIFIED <EUGENIA WILHELM - Last Filed: 06/10/23 09:43> MOO Encounter - MOO Encounter Attestation MOO Encounter Attestation: "IhavepersonallysCLOTILDE Valerio andhavediscussed pertinent aspects of their care with Eugenia Ordoñez agree with the history, physical exam (any modifications based on my personal exam will be noted below), assessment, and plan as outlined in original note. Please see immediately below for my summary of findings and additional assessment and plan along with any meaningful corrections/explanations to the Subjective/Objective portions of the MOO note will be noted." My portion of the encounter took place via telemedicine. -S/p R BKA, care per ortho. Will discuss culture results with ortho. Anticipate DC in 1-2 days <LACIE AMAYA - Last Filed: 06/10/23 21:40>
[2023-06-10 05:09] LABS: ANION GAP 8.8 MEQ/L (5-15); Calcium 8.1 mg/dL (8.4-10.2); Creatinine 1 1.05 mg/dL (0.52-1.04); EST GLOMERULAR FILTRATION RATE 60.8 ML/MIN; Potassium 3.6 mmol/L (3.5-5.1)
[2023-06-10] MEDS: Fortaz/Tazicef 2 GM in D5w 100ML Mini Bag 100 ML 100 ML IV SCH ×3 (05:35→21:10)
[2023-06-10 06:05] LABS: Hematocrit 25.8 % (35-47); Hemoglobin 8.1 g/dL (12.0-16.0); Mean Cell Volume 92.5 fL (78-100); Mean Corpuscular Hgb Concent. 31.4 g/dL (32-36); Red Blood Count 2.79 x10^6/uL (4.1-5.4); White Blood Count 5.4 x10^3/uL (4.0-10.5)
[2023-06-10 06:06] LABS: Absolute Neutrophil Ct (ANC) 3.35 x10^3/uL (1.4-6.9); BASOPHIL % 0.4 % (0.0-0.4); Basophil (Absolute #) 0.02 x10^3/uL (0-0.4); Eosinophil % 4.1 % (0.00-5.0); Eosinophil (Absolute #) 0.22 x10^3/uL (0-0.5); IMMATURE GRAN # 0.02 x10^3u/L (0.00-0.03); IMMATURE GRAN % 0.4 % (0.00-0.4); Lymphocyte (Absolute #) 1.14 x10^3/uL (1.0-4.6); Lymphocytes % 21.2 % (24.0-44.0); Monocyte (Absolute #) 0.64 x10^3/uL (0.0-1.3); Monocytes % 11.9 % (0.0-12.0); Platelet Count 109 x10^3/uL (150-450)
--- NOTE | 2023-06-10 08:52 | PCM.NOTE ---
Date and Time: 06/10/2346 Physical Exam - Narrative Narrative Physical Exam: Podiatry Physical Exam OBJECTIVE DATA Vital Signs: Vital Signs - 24 hr Temp Pulse Resp BP Pulse Ox 06/10/23 08:00 97.9 F 73 16 109/53 94 L 06/10/23 06:00 17 06/10/23 04:00 97.9 F 77 17 134/70 95 06/10/23 02:00 18 06/09/23 23:49 97.8 F 65 18 105/62 97 06/09/23 22:00 18 06/09/23 19:49 97.8 F 79 18 129/64 100 06/09/23 16:00 97.3 F 79 15 129/67 92 L 06/09/23 14:00 16 06/09/23 12:22 97.7 F 74 16 115/51 96 06/09/23 10:00 16 Pain Assessment - Last Documented Pain Intensity [Right Lower 7 Anterior] Pain Intensity [Right Lower 8 Anterior Knee] Pain Intensity 9 [facility] Intake and Output: Intake & Output 06/08/23 06/09/23 06/10/23 06/11/23 06:59 06:59 06:59 06:59 Intake Total 880 2167 Balance 880 2167 Weight 278 kg 122.9 kg Lab Results: Lab Results-Last 24 Hours 06/09/23 06/09/23 06/09/23 Range/Units 04:25 12:06 16:56 WBC (4.0-10.5) x10^3/uL RBC (4.1-5.4) x10^6/uL Hgb (12.0-16.0) g/dL Hct (35-47) % MCV (78-100) fL MCH (26-32) pg MCHC (32-36) g/dL RDW (11.5-14.0) % Plt Count (150-450) x10^3/uL MPV (7.5-11.0) fL Gran % (36.0-66.0) % Immature Gran % (Auto) (0.00-0.4) % Nucleat RBC Rel Count (0.00-0.1) % Eos # (Auto) (0-0.5) x10^3/uL Immature Gran # (Auto) (0.00-0.03) x10^3u/L Absolute Lymphs (auto) (1.0-4.6) x10^3/uL Absolute Monos (auto) (0.0-1.3) x10^3/uL Absolute Nucleated RBC (0.00-0.01) x10^3u/L Lymphocytes % (24.0-44.0) % Monocytes % (0.0-12.0) % Eosinophils % (0.00-5.0) % Basophils % (0.0-0.4) % Absolute Granulocytes (1.4-6.9) x10^3/uL Basophils # (0-0.4) x10^3/uL Sodium (137-145) mmol/L Potassium (3.5-5.1) mmol/L Chloride (98-107) mmol/L Carbon Dioxide (22-30) mmol/L Anion Gap (5-15) MEQ/L BUN (7-17) mg/dL Creatinine (0.52-1.04) mg/dL Estimated GFR ML/MIN Glucose (74-106) mg/dL POC Glucometer 228 H 241 H (74 to 106) mg/dL Hemoglobin A1c 5.63 (4.5-6.0) % Calcium (8.4-10.2) mg/dL 06/09/23 06/10/23 06/10/23 Range/Units 21:08 04:37 04:37 WBC 5.4 (4.0-10.5) x10^3/uL RBC 2.79 L (4.1-5.4) x10^6/uL Hgb 8.1 L (12.0-16.0) g/dL Hct 25.8 L (35-47) % MCV 92.5 (78-100) fL MCH 29.0 (26-32) pg MCHC 31.4 L (32-36) g/dL RDW 16.0 H (11.5-14.0) % Plt Count 109 L (150-450) x10^3/uL MPV 10.0 (7.5-11.0) fL Gran % 62.0 (36.0-66.0) % Immature Gran % (Auto) 0.4 (0.00-0.4) % Nucleat RBC Rel Count 0.0 (0.00-0.1) % Eos # (Auto) 0.22 (0-0.5) x10^3/uL Immature Gran # (Auto) 0.02 (0.00-0.03) x10^3u/L Absolute Lymphs (auto) 1.14 (1.0-4.6) x10^3/uL Absolute Monos (auto) 0.64 (0.0-1.3) x10^3/uL Absolute Nucleated RBC 0.00 (0.00-0.01) x10^3u/L Lymphocytes % 21.2 L (24.0-44.0) % Monocytes % 11.9 (0.0-12.0) % Eosinophils % 4.1 (0.00-5.0) % Basophils % 0.4 (0.0-0.4) % Absolute Granulocytes 3.35 (1.4-6.9) x10^3/uL Basophils # 0.02 (0-0.4) x10^3/uL Sodium 135 L (137-145) mmol/L Potassium 3.6 (3.5-5.1) mmol/L Chloride 99 (98-107) mmol/L Carbon Dioxide 30 (22-30) mmol/L Anion Gap 8.8 (5-15) MEQ/L BUN 16 (7-17) mg/dL Creatinine 1.05 H (0.52-1.04) mg/dL Estimated GFR 60.8 ML/MIN Glucose 235 H (74-106) mg/dL POC Glucometer 247 H (74 to 106) mg/dL Hemoglobin A1c (4.5-6.0) % Calcium 8.1 L (8.4-10.2) mg/dL 06/10/23 Range/Units 08:08 WBC (4.0-10.5) x10^3/uL RBC (4.1-5.4) x10^6/uL Hgb (12.0-16.0) g/dL Hct (35-47) % MCV (78-100) fL MCH (26-32) pg MCHC (32-36) g/dL RDW (11.5-14.0) % Plt Count (150-450) x10^3/uL MPV (7.5-11.0) fL Gran % (36.0-66.0) % Immature Gran % (Auto) (0.00-0.4) % Nucleat RBC Rel Count (0.00-0.1) % Eos # (Auto) (0-0.5) x10^3/uL Immature Gran # (Auto) (0.00-0.03) x10^3u/L Absolute Lymphs (auto) (1.0-4.6) x10^3/uL Absolute Monos (auto) (0.0-1.3) x10^3/uL Absolute Nucleated RBC (0.00-0.01) x10^3u/L Lymphocytes % (24.0-44.0) % Monocytes % (0.0-12.0) % Eosinophils % (0.00-5.0) % Basophils % (0.0-0.4) % Absolute Granulocytes (1.4-6.9) x10^3/uL Basophils # (0-0.4) x10^3/uL Sodium (137-145) mmol/L Potassium (3.5-5.1) mmol/L Chloride (98-107) mmol/L Carbon Dioxide (22-30) mmol/L Anion Gap (5-15) MEQ/L BUN (7-17) mg/dL Creatinine (0.52-1.04) mg/dL Estimated GFR ML/MIN Glucose (74-106) mg/dL POC Glucometer 219 H (74 to 106) mg/dL Hemoglobin A1c (4.5-6.0) % Calcium (8.4-10.2) mg/dL Radiology Exams: Radiology Procedures Category Date Time Status LOWER LEG Routine Exams 06/08/23 10:08 Completed
[2023-06-10] MEDS ORDERED: NORCO 5/325 MG PO SCH (09:00)
[2023-06-10] MEDS: HUMALOG SQ PRN ×2 (09:08→12:01)
--- NOTE | 2023-06-10 09:33 | PCM.NOTE ---
Date and Time: 06/10/23925 Subjective Assessment: Patient is in room laying down in bed family at bedside says her right lower leg amputation is painful. waiting on pain medicine. the Dilaudid and [place] are controlling the pain says she feels fine other [place]. states she is happy with her progress Physical Exam - Narrative Narrative Physical Exam: right lower leg below the knee amputation coban is intact dark small amount dark drainage seen through the posterior dressing. no active drainage seen. ERIK bush left lower leg OBJECTIVE DATA Vital Signs: Vital Signs - 24 hr Temp Pulse Resp BP Pulse Ox 06/10/23 08:00 97.9 F 73 16 109/53 94 L 06/10/23 06:00 17 06/10/23 04:00 97.9 F 77 17 134/70 95 06/10/23 02:00 18 06/09/23 23:49 97.8 F 65 18 105/62 97 06/09/23 22:00 18 06/09/23 19:49 97.8 F 79 18 129/64 100 06/09/23 16:00 97.3 F 79 15 129/67 92 L 06/09/23 14:00 16 06/09/23 12:22 97.7 F 74 16 115/51 96 06/09/23 10:00 16 Pain Assessment - Last Documented Pain Intensity [Right Lower 7 Anterior] Pain Intensity [Right Lower 8 Anterior Knee] Pain Intensity 7 [facility] Intake and Output: Intake & Output 06/08/23 06/09/23 06/10/23 06/11/23 06:59 06:59 06:59 06:59 Intake Total 880 2167 Balance 880 2167 Weight 278 kg 122.9 kg Lab Results: Lab Results-Last 24 Hours 06/09/23 06/09/23 06/09/23 Range/Units 04:25 12:06 16:56 WBC (4.0-10.5) x10^3/uL RBC (4.1-5.4) x10^6/uL Hgb (12.0-16.0) g/dL Hct (35-47) % MCV (78-100) fL MCH (26-32) pg MCHC (32-36) g/dL RDW (11.5-14.0) % Plt Count (150-450) x10^3/uL MPV (7.5-11.0) fL Gran % (36.0-66.0) % Immature Gran % (Auto) (0.00-0.4) % Nucleat RBC Rel Count (0.00-0.1) % Eos # (Auto) (0-0.5) x10^3/uL Immature Gran # (Auto) (0.00-0.03) x10^3u/L Absolute Lymphs (auto) (1.0-4.6) x10^3/uL Absolute Monos (auto) (0.0-1.3) x10^3/uL Absolute Nucleated RBC (0.00-0.01) x10^3u/L Lymphocytes % (24.0-44.0) % Monocytes % (0.0-12.0) % Eosinophils % (0.00-5.0) % Basophils % (0.0-0.4) % Absolute Granulocytes (1.4-6.9) x10^3/uL Basophils # (0-0.4) x10^3/uL Sodium (137-145) mmol/L Potassium (3.5-5.1) mmol/L Chloride (98-107) mmol/L Carbon Dioxide (22-30) mmol/L Anion Gap (5-15) MEQ/L BUN (7-17) mg/dL Creatinine (0.52-1.04) mg/dL Estimated GFR ML/MIN Glucose (74-106) mg/dL POC Glucometer 228 H 241 H (74 to 106) mg/dL Hemoglobin A1c 5.63 (4.5-6.0) % Calcium (8.4-10.2) mg/dL 06/09/23 06/10/23 06/10/23 Range/Units 21:08 04:37 04:37 WBC 5.4 (4.0-10.5) x10^3/uL RBC 2.79 L (4.1-5.4) x10^6/uL Hgb 8.1 L (12.0-16.0) g/dL Hct 25.8 L (35-47) % MCV 92.5 (78-100) fL MCH 29.0 (26-32) pg MCHC 31.4 L (32-36) g/dL RDW 16.0 H (11.5-14.0) % Plt Count 109 L (150-450) x10^3/uL MPV 10.0 (7.5-11.0) fL Gran % 62.0 (36.0-66.0) % Immature Gran % (Auto) 0.4 (0.00-0.4) % Nucleat RBC Rel Count 0.0 (0.00-0.1) % Eos # (Auto) 0.22 (0-0.5) x10^3/uL Immature Gran # (Auto) 0.02 (0.00-0.03) x10^3u/L Absolute Lymphs (auto) 1.14 (1.0-4.6) x10^3/uL Absolute Monos (auto) 0.64 (0.0-1.3) x10^3/uL Absolute Nucleated RBC 0.00 (0.00-0.01) x10^3u/L Lymphocytes % 21.2 L (24.0-44.0) % Monocytes % 11.9 (0.0-12.0) % Eosinophils % 4.1 (0.00-5.0) % Basophils % 0.4 (0.0-0.4) % Absolute Granulocytes 3.35 (1.4-6.9) x10^3/uL Basophils # 0.02 (0-0.4) x10^3/uL Sodium 135 L (137-145) mmol/L Potassium 3.6 (3.5-5.1) mmol/L Chloride 99 (98-107) mmol/L Carbon Dioxide 30 (22-30) mmol/L Anion Gap 8.8 (5-15) MEQ/L BUN 16 (7-17) mg/dL Creatinine 1.05 H (0.52-1.04) mg/dL Estimated GFR 60.8 ML/MIN Glucose 235 H (74-106) mg/dL POC Glucometer 247 H (74 to 106) mg/dL Hemoglobin A1c (4.5-6.0) % Calcium 8.1 L (8.4-10.2) mg/dL 06/10/23 Range/Units 08:08 WBC (4.0-10.5) x10^3/uL RBC (4.1-5.4) x10^6/uL Hgb (12.0-16.0) g/dL Hct (35-47) % MCV (78-100) fL MCH (26-32) pg MCHC (32-36) g/dL RDW (11.5-14.0) % Plt Count (150-450) x10^3/uL MPV (7.5-11.0) fL Gran % (36.0-66.0) % Immature Gran % (Auto) (0.00-0.4) % Nucleat RBC Rel Count (0.00-0.1) % Eos # (Auto) (0-0.5) x10^3/uL Immature Gran # (Auto) (0.00-0.03) x10^3u/L Absolute Lymphs (auto) (1.0-4.6) x10^3/uL Absolute Monos (auto) (0.0-1.3) x10^3/uL Absolute Nucleated RBC (0.00-0.01) x10^3u/L Lymphocytes % (24.0-44.0) % Monocytes % (0.0-12.0) % Eosinophils % (0.00-5.0) % Basophils % (0.0-0.4) % Absolute Granulocytes (1.4-6.9) x10^3/uL Basophils # (0-0.4) x10^3/uL Sodium (137-145) mmol/L Potassium (3.5-5.1) mmol/L Chloride (98-107) mmol/L Carbon Dioxide (22-30) mmol/L Anion Gap (5-15) MEQ/L BUN (7-17) mg/dL Creatinine (0.52-1.04) mg/dL Estimated GFR ML/MIN Glucose (74-106) mg/dL POC Glucometer 219 H (74 to 106) mg/dL Hemoglobin A1c (4.5-6.0) % Calcium (8.4-10.2) mg/dL Radiology Exams: Radiology Procedures Category Date Time Status LOWER LEG Routine Exams 06/08/23 10:08 Completed Assessment/Plan (1) S/P BKA (below knee amputation) Current Visit: Yes Status: Acute Qualifiers: Laterality: unspecified laterality Qualified Code(s): Z89.519 - Acquired absence of unspecified leg below knee Assessment & Plan: Ok reinforce dressing if needed add OT evaluation Code(s): Z89.519 - ACQUIRED ABSENCE OF UNSPECIFIED LEG BELOW KNEE
[2023-06-10] MEDS: FEOSOL 325 MG PO SCH (10:04)
[2023-06-10] MEDS: Lantus Insulin SQ SCH ×2 (10:04→21:40)
[2023-06-10] MEDS: NEURONTIN PO SCH ×4 (10:04→21:11)
[2023-06-10] MEDS: LACTULOSE 20 GM/30ML UD CUP PO SCH ×4 (10:04→21:11)
[2023-06-10] MEDS: Protonix 40MG Tablet PO SCH ×2 (10:05→21:14)
[2023-06-10] MEDS: ECOTRIN 81 MG PO SCH (10:05)
[2023-06-10] MEDS: Klor Con PO SCH ×2 (10:05→21:11)
[2023-06-10] MEDS: Aldactone 25 MG PO SCH (10:05)
[2023-06-10] MEDS: DEMADEX 20 MG PO SCH ×2 (10:06→17:10)
[2023-06-10] MEDS: SODIUM CHLORIDE FLUSH IV SCH (10:07)
[2023-06-10] MEDS: DAPTOMYCIN IV SCH (10:07)
[2023-06-10] MEDS: NORCO 5/325 MG PO SCH ×3 (12:01→19:58)
[2023-06-10] MEDS: Sodium Chloride 0.9% 10 ML FLUSH Syringe PICC SCH ×2 (12:02→21:18)
[2023-06-10] MEDS: ZOCOR 20MG PO SCH (21:11)
[2023-06-10] MEDS: MELATONIN PO SCH (21:11)
[2023-06-11] MEDS: NORCO 5/325 MG PO SCH ×3 (00:14→08:14)
--- NOTE | 2023-06-11 05:07 | PCM.NOTE ---
Date and Time: 06/11/23 0506 Subjective Assessment: is a 58 year old female with a pmhx of DM, HTN, obesity, GERD, neuropathy, CHF, recent surgical repair/graft of right ankle (04/28/23) with Dr. Soto, and chronic anemia who presents to the hospital s/p right BKA (06/08/23). Hospitalist team has been consulted for medical management. Patient e ndorsing right extremity pain postoperatively. 06/09/23: Met with patient bedside. Endorses improved pain with Diluadid, still rating it at 8/10 on numerical pain scale. No overnight events noted. Reviewed Ortho progress note, drain was removed today. Plan for IP for about two more days. Patient will need a total of 5 post op days of IV antibiotics pending cultures, then 5 more days of oral antibiotics. Dressing change on Day 5 with nonstick dressing. Shower on postop day 7. NWB on RLE. Return appt on 07/02/23. Discussed pain control with patient and ortho and decided on [place]/Dilaudid alt for now. Patient takes 2mg of Dilaudid at [place] on regular basis. Denies fever,cough, sob, cp, abdominal pain, KERR, dizziness, N/V/D. 06/10/23: Met with patient bedside. S/P RBKA PODS#2, doing well. Endorses continued pain to her right thigh 8/10, Patient states she would like her norco scheduled as she feels she has not gotten it in a timely manner. No overnight events. Lab findings stable. Plan it to continue abx pending cultures. She will d/c to SNF on discharge. 06/11/23: No overnight events noted. PODS#3, continues to do well. Patient states pain is under control. Declines [place] at this time. Denies fever,cough, sob, cp, abdominal pain, KERR, dizziness, N/V/D. Plan for discharge most likely tomorrow if cultures are back. <EUGENIA WILHELM - Last Filed: 06/11/23 09:04> Date and Time: 06/11/23 2113 <LACIE AMAYA - Last Filed: 06/11/23 21:15> - Review of Systems Constitutional: No Symptoms Eyes: No Symptoms Ears, Nose, & Throat: No Symptoms Respiratory: No Symptoms Cardiac: No Symptoms Abdominal/Gastrointestinal: No Symptoms Genitourinary Symptoms: No Symptoms Musculoskeletal: Other (RBKA amputation with surgical dressing 7/10 Right thigh pain) Skin: Other (RBKA PODS#3 with surgical dressing) Neurological: No Symptoms Psychological: No Symptoms Endocrine: No Symptoms Hematologic/Lymphatic: Anemia <EUGENIA WILHELM - Last Filed: 06/11/23 09:04> Objective Exam General Appearance: no apparent distress Neurologic Exam: alert, oriented x 3, cooperative Skin Exam: normal color Wound Assessment: Skin/Wound Assessment Wound/Incision Assessment Start: 06/08/23 08:05 Text: Status: Active Freq: Q6H Protocol: Document 06/11/23 01:16 KS (Rec: 06/11/23 01:23 KS [id number]) Wound/Incision Assessment Left Posterior Buttock Wound Assessment Shift Assessment Wound Type Pressure Ulcer Wound Stage Stage II General Appearance Open to air Length (cm) (cm) 2 Width (cm) (cm) 2 Wound Bed Greatest Portion Shiny,Yellow (Slough) Wound Bed Lesser Portion Red (Granulation),Shiny Comment Barrier cream with zinc applied PRN. Right Lower Knee Wound Assessment Shift Assessment Wound Type Amputation Wound Stage Non Pressure Wound Dressing Status Dry & Intact Drainage Amount None Primary Dressing Gauze Pads Secondary Dressing Gauze Roll/Wrap Comment dressing to remain in place , CDI at this time Eye Exam: PERRL Ears, Nose, Throat Exam: normal ENT inspection Neck Exam: normal inspection Respiratory Exam: normal breath sounds, lungs clear Cardiovascular Exam: regular rate/rhythm, normal heart sounds Extremity Exam: amputations (RBKA with surgical dressing) Back Exam: normal inspection Pelvic Exam: deferred <EUGENIA WILHELM - Last Filed: 06/11/23 09:04> Wound Assessment: Skin/Wound Assessment Wound/Incision Assessment Start: 06/08/23 08:05 Text: Status: Active Twillionq: Q6H Protocol: Document 06/11/23 20:00 LB (Rec: 06/11/23 20:57 LB [id number]) Wound/Incision Assessment Left Posterior Buttock Wound Assessment Shift Assessment Wound Type Pressure Ulcer Wound Stage Stage II Drainage Amount None General Appearance Open to air Wound Bed Greatest Portion Shiny Wound Bed Lesser Portion Red (Granulation),Shiny Comment ZINC CREAM APPLIED prn Right Lower Knee Wound Assessment Shift Assessment Wound Type Amputation Wound Stage Non Pressure Wound Dressing Status Dry & Intact Drainage Amount None Primary Dressing Gauze Pads Secondary Dressing Gauze Roll/Wrap Comment DRESSING TO REMAIN IN PLACE PER ORTHO, NO NEW DRAINAGE NOTED. Wound Photo Photo Taken Yes <LACIE AMAYA - Last Filed: 06/11/23 21:15> OBJECTIVE DATA Vital Signs: Vital Signs - 24 hr Temp Pulse Resp BP Pulse Ox 06/11/23 03:57 97.9 F 79 19 125/58 93 L 06/11/23 00:00 18 06/10/23 23:58 97.3 F 80 20 110/57 94 L 06/10/23 20:00 97.9 F 79 16 129/64 93 L 06/10/23 16:00 97.5 F 82 16 120/61 97 06/10/23 12:00 16 06/10/23 11:48 98.1 F 82 16 131/66 93 L 06/10/23 08:00 97.9 F 73 16 109/53 94 L 06/10/23 06:00 17 Pain Assessment - Last Documented Pain Intensity [Right Lower 7 Anterior] Pain Intensity [Right Lower 8 Anterior Knee] Pain Intensity 8 Pain Scale Used 0-10 Pain Scale Intake and Output: Intake & Output 06/08/23 06/09/23 06/10/23 06/11/23 11:59 11:59 11:59 11:59 Intake Total 880 2167 2266 Balance 880 2167 2266 Weight 122.9 kg 122.9 kg Lab Results: Lab Results-Last 24 Hours 06/10/23 06/10/23 06/10/23 Range/Units 04:37 04:37 08:08 WBC 5.4 (4.0-10.5) x10^3/uL RBC 2.79 L (4.1-5.4) x10^6/uL Hgb 8.1 L (12.0-16.0) g/dL Hct 25.8 L (35-47) % MCV 92.5 (78-100) fL MCH 29.0 (26-32) pg MCHC 31.4 L (32-36) g/dL RDW 16.0 H (11.5-14.0) % Plt Count 109 L (150-450) x10^3/uL MPV 10.0 (7.5-11.0) fL Gran % 62.0 (36.0-66.0) % Immature Gran % (Auto) 0.4 (0.00-0.4) % Nucleat RBC Rel Count 0.0 (0.00-0.1) % Eos # (Auto) 0.22 (0-0.5) x10^3/uL Immature Gran # (Auto) 0.02 (0.00-0.03) x10^3u/L Absolute Lymphs (auto) 1.14 (1.0-4.6) x10^3/uL Absolute Monos (auto) 0.64 (0.0-1.3) x10^3/uL Absolute Nucleated RBC 0.00 (0.00-0.01) x10^3u/L Lymphocytes % 21.2 L (24.0-44.0) % Monocytes % 11.9 (0.0-12.0) % Eosinophils % 4.1 (0.00-5.0) % Basophils % 0.4 (0.0-0.4) % Absolute Granulocytes 3.35 (1.4-6.9) x10^3/uL Basophils # 0.02 (0-0.4) x10^3/uL Sodium 135 L (137-145) mmol/L Potassium 3.6 (3.5-5.1) mmol/L Chloride 99 (98-107) mmol/L Carbon Dioxide 30 (22-30) mmol/L Anion Gap 8.8 (5-15) MEQ/L BUN 16 (7-17) mg/dL Creatinine 1.05 H (0.52-1.04) mg/dL Estimated GFR 60.8 ML/MIN Glucose 235 H (74-106) mg/dL POC Glucometer 219 H (74 to 106) mg/dL Calcium 8.1 L (8.4-10.2) mg/dL 06/10/23 06/10/23 06/10/23 Range/Units 11:37 16:20 21:03 WBC (4.0-10.5) x10^3/uL RBC (4.1-5.4) x10^6/uL Hgb (12.0-16.0) g/dL Hct (35-47) % MCV (78-100) fL MCH (26-32) pg MCHC (32-36) g/dL RDW (11.5-14.0) % Plt Count (150-450) x10^3/uL MPV (7.5-11.0) fL Gran % (36.0-66.0) % Immature Gran % (Auto) (0.00-0.4) % Nucleat RBC Rel Count (0.00-0.1) % Eos # (Auto) (0-0.5) x10^3/uL Immature Gran # (Auto) (0.00-0.03) x10^3u/L Absolute Lymphs (auto) (1.0-4.6) x10^3/uL Absolute Monos (auto) (0.0-1.3) x10^3/uL Absolute Nucleated RBC (0.00-0.01) x10^3u/L Lymphocytes % (24.0-44.0) % Monocytes % (0.0-12.0) % Eosinophils % (0.00-5.0) % Basophils % (0.0-0.4) % Absolute Granulocytes (1.4-6.9) x10^3/uL Basophils # (0-0.4) x10^3/uL Sodium (137-145) mmol/L Potassium (3.5-5.1) mmol/L Chloride (98-107) mmol/L Carbon Dioxide (22-30) mmol/L Anion Gap (5-15) MEQ/L BUN (7-17) mg/dL Creatinine (0.52-1.04) mg/dL Estimated GFR ML/MIN Glucose (74-106) mg/dL POC Glucometer 206 H 190 H 170 H (74 to 106) mg/dL Calcium (8.4-10.2) mg/dL Multi-Disciplinary Progress Notes: Multi-Disciplinary Progress Notes 06/10/23 10:06 Case Management Note by Ayaka Mclean S/W PATIENT- SHE CONTINUES TO PLAN TO RETURN TO [facility] AT TIME OF DC Initialized on 06/10/23 10:06 - END OF NOTE <EUGENIA WILHELM - Last Filed: 06/11/23 09:04> Vital Signs: Vital Signs - 24 hr Temp Pulse Resp BP Pulse Ox 06/11/23 18:37 98.0 F 79 17 134/65 93 L 06/11/23 16:00 97.2 F 68 18 139/62 94 L 06/11/23 12:00 16 06/11/23 10:58 97.6 F 69 16 119/58 96 06/11/23 10:07 74 94 L 06/11/23 08:00 16 06/11/23 06:42 96.8 F 68 16 132/62 90 L 06/11/23 03:57 97.9 F 79 19 125/58 93 L 06/11/23 00:00 18 06/10/23 23:58 97.3 F 80 20 110/57 94 L Pain Assessment - Last Documented Pain Intensity [Right Lower 7 Anterior] Pain Intensity [Right Lower 8 Anterior Knee] Pain Intensity 7 Pain Scale Used 0-10 Pain Scale Intake and Output: Intake & Output 06/09/23 06/10/23 06/11/23 06/12/23 11:59 11:59 11:59 11:59 Intake Total 880 2167 2386 480 Balance 880 2167 2386 480 Weight 122.9 kg Lab Results: Lab Results-Last 24 Hours 06/11/23 06/11/23 06/11/23 Range/Units 04:00 04:49 04:49 WBC 5.5 (4.0-10.5) x10^3/uL RBC 2.72 L (4.1-5.4) x10^6/uL Hgb 7.6 L (12.0-16.0) g/dL Hct 25.0 L (35-47) % MCV 91.9 (78-100) fL MCH 27.9 (26-32) pg MCHC 30.4 L (32-36) g/dL RDW 16.0 H (11.5-14.0) % Plt Count 129 L (150-450) x10^3/uL MPV 10.0 (7.5-11.0) fL Gran % 57.1 (36.0-66.0) % Immature Gran % (Auto) 0.4 (0.00-0.4) % Nucleat RBC Rel Count 0.0 (0.00-0.1) % Eos # (Auto) 0.26 (0-0.5) x10^3/uL Immature Gran # (Auto) 0.02 (0.00-0.03) x10^3u/L Absolute Lymphs (auto) 1.42 (1.0-4.6) x10^3/uL Absolute Monos (auto) 0.60 (0.0-1.3) x10^3/uL Absolute Nucleated RBC 0.00 (0.00-0.01) x10^3u/L Lymphocytes % 26.1 (24.0-44.0) % Monocytes % 11.0 (0.0-12.0) % Eosinophils % 4.8 (0.00-5.0) % Basophils % 0.6 (0.0-0.4) % Absolute Granulocytes 3.12 (1.4-6.9) x10^3/uL Basophils # 0.03 (0-0.4) x10^3/uL Sodium 136 L (137-145) mmol/L Potassium 3.2 L (3.5-5.1) mmol/L Chloride 100 (98-107) mmol/L Carbon Dioxide 31 H (22-30) mmol/L Anion Gap 8.9 (5-15) MEQ/L BUN 15 (7-17) mg/dL Creatinine 0.99 (0.52-1.04) mg/dL Estimated GFR 65.3 ML/MIN Glucose 132 H (74-106) mg/dL POC Glucometer (74 to 106) mg/dL Calcium 8.3 L (8.4-10.2) mg/dL Creatine Kinase 25 L (30-135) U/L 06/11/23 06/11/23 06/11/23 Range/Units 07:05 10:54 16:15 WBC (4.0-10.5) x10^3/uL RBC (4.1-5.4) x10^6/uL Hgb (12.0-16.0) g/dL Hct (35-47) % MCV (78-100) fL MCH (26-32) pg MCHC (32-36) g/dL RDW (11.5-14.0) % Plt Count (150-450) x10^3/uL MPV (7.5-11.0) fL Gran % (36.0-66.0) % Immature Gran % (Auto) (0.00-0.4) % Nucleat RBC Rel Count (0.00-0.1) % Eos # (Auto) (0-0.5) x10^3/uL Immature Gran # (Auto) (0.00-0.03) x10^3u/L Absolute Lymphs (auto) (1.0-4.6) x10^3/uL Absolute Monos (auto) (0.0-1.3) x10^3/uL Absolute Nucleated RBC (0.00-0.01) x10^3u/L Lymphocytes % (24.0-44.0) % Monocytes % (0.0-12.0) % Eosinophils % (0.00-5.0) % Basophils % (0.0-0.4) % Absolute Granulocytes (1.4-6.9) x10^3/uL Basophils # (0-0.4) x10^3/uL Sodium (137-145) mmol/L Potassium (3.5-5.1) mmol/L Chloride (98-107) mmol/L Carbon Dioxide (22-30) mmol/L Anion Gap (5-15) MEQ/L BUN (7-17) mg/dL Creatinine (0.52-1.04) mg/dL Estimated GFR ML/MIN Glucose (74-106) mg/dL POC Glucometer 124 H 184 H 176 H (74 to 106) mg/dL Calcium (8.4-10.2) mg/dL Creatine Kinase (30-135) U/L 06/11/23 Range/Units 20:57 WBC (4.0-10.5) x10^3/uL RBC (4.1-5.4) x10^6/uL Hgb (12.0-16.0) g/dL Hct (35-47) % MCV (78-100) fL MCH (26-32) pg MCHC (32-36) g/dL RDW (11.5-14.0) % Plt Count (150-450) x10^3/uL MPV (7.5-11.0) fL Gran % (36.0-66.0) % Immature Gran % (Auto) (0.00-0.4) % Nucleat RBC Rel Count (0.00-0.1) % Eos # (Auto) (0-0.5) x10^3/uL Immature Gran # (Auto) (0.00-0.03) x10^3u/L Absolute Lymphs (auto) (1.0-4.6) x10^3/uL Absolute Monos (auto) (0.0-1.3) x10^3/uL Absolute Nucleated RBC (0.00-0.01) x10^3u/L Lymphocytes % (24.0-44.0) % Monocytes % (0.0-12.0) % Eosinophils % (0.00-5.0) % Basophils % (0.0-0.4) % Absolute Granulocytes (1.4-6.9) x10^3/uL Basophils # (0-0.4) x10^3/uL Sodium (137-145) mmol/L Potassium (3.5-5.1) mmol/L Chloride (98-107) mmol/L Carbon Dioxide (22-30) mmol/L Anion Gap (5-15) MEQ/L BUN (7-17) mg/dL Creatinine (0.52-1.04) mg/dL Estimated GFR ML/MIN Glucose (74-106) mg/dL POC Glucometer 200 H (74 to 106) mg/dL Calcium (8.4-10.2) mg/dL Creatine Kinase (30-135) U/L Multi-Disciplinary Progress Notes: Multi-Disciplinary Progress Notes 06/11/23 15:14 Occupational Therapy Note by Js(Blaze#[id number]),Yesenia Occupational Therapy Treatment Note [id number] Patient supine in bed with BLE elevated on three pillows upon OT approach. Patient's daughter and other person (Emile?) present in the room also. Patient agreeable to treatment session this date. She stated that her pain "is doing good" and rated RLE pain at 6-7/10. OTR educated patient on residual limb positioning as well as skin checks and care following removal of bandages and sutures. She verbalized understanding. Patient then participated in bed mobility to scoot herself up in bed using BUE and LLE bridging technique with SBA and mod verbal cueing from OTR. OTR educated patient on LLE AROM and UB strengthening ther ex's using theraband (red) with provided theraband and written, illustrated handout in order to promote improved strength, endurance, and ROM for ADL performance, bed mobility, and functional positioning for I/ADLs. Exercises included bicep curls, chest press, rows, chest flys, leg press, thigh abduction, hip flexion (BLE), knee flexion/exension (BLE), hip abduction (BLE), and ankle flexion/extension (LLE). Patient aayush's good carryover of new strengthening and AROM ther ex's 1 set of 10 repetitions each exercise. Patient aayush's decreased R hip strength with difficulty lifting residual limb off of bed this date and limited L ankle AROM, but is able to achieve appropriate positioning of LLE to complete bridge during bed mobility. Patient supine in bed with HOB elevated and BLE elevated on one pillow at session end. Phone, call light, and bedside table within reach with nurse at bedside at end of treatment session. OTR recommends OT and PT at SNF to continue addressing I/ADLs, functional transfers, and functional strengthening impacting independence and safety with I/ADLs. Initialized on 06/11/23 15:14 - END OF NOTE 06/11/23 10:00 Case Management Note by Ayaka Mclean S/W PATIENT- SHE CONTINUES TO PLAN TO RETURN TO [facility] AT TIME OF DC. FAXED CLINICAL UPDATE TO [facility] REQUESTED Initialized on 06/11/23 10:00 - END OF NOTE <LACIE AMAYA - Last Filed: 06/11/23 21:15> Assessment/Plan (1) S/P BKA (below knee amputation) Current Visit: Yes Status: Acute Qualifiers: Laterality: unspecified laterality Qualified Code(s): Z89.519 - Acquired absence of unspecified leg below knee Assessment & Plan: -PODS#0 -Pain control/abx managed by ortho, currently on ceftazidime/daptomycin -Dressing changes per ortho 06/09: -Pain meds changed to [place]/diluadid -Ortho note reviewed, "Plan await antibiotic sensitivities in 1-2 more days.N ursing home then on a total of 5 postop days of appropriate antibiotics.Then may switch to p.o. antibiotics for additional 5 days. 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 Return sooner if wound appears infected.May resume previous pain medications and may need additional pain medication on top of this for several weeks.I will be out of town for the next 3 daysBut may be contacted with questions [phone]." 06/10: -Per ortho continue ASA 81mg for anticoag 06/11: -Cultures pending, continue ceftazidime/daptomycin for now -Ortho following -Pain controlled with diluadid, will continue home dose on d/c Code(s): Z89.519 - ACQUIRED ABSENCE OF UNSPECIFIED LEG BELOW KNEE (2) Neuropathy Current Visit: Yes Status: Acute Assessment & Plan: -Continue home medication gabapentin Code(s): G62.9 - POLYNEUROPATHY, UNSPECIFIED (3) GERD (gastroesophageal reflux disease) Current Visit: Yes Status: Acute Assessment & Plan: -Continue protonix Code(s): K21.9 - GASTRO-ESOPHAGEAL REFLUX DISEASE WITHOUT ESOPHAGITIS (4) Diabetes mellitus Current Visit: No Status: Acute Assessment & Plan: -ADA diet -SSI, monitor closely, may need adjustments -Continue home glargine -A1c pending 06/10: -A1c 5.63, blood glucose levels stable Code(s): E11.9 - TYPE 2 DIABETES MELLITUS WITHOUT COMPLICATIONS (5) HTN (hypertension) Current Visit: No Status: Acute Assessment & Plan: -stable Code(s): I10 - ESSENTIAL (PRIMARY) HYPERTENSION (6) Anemia Current Visit: No Status: Acute Assessment & Plan: -chronic, hgb at 7.8 s/p surgery -H&H q6h, transfuse if hgb <7 -continue ferrous sulfate 06/09: -Stable at 7.5 06/10 -Stable at 8.1 06/11/23: -Stable at 7.6 #Hypokalemia -Most likely multifocal with torsemide and GI loss -Potassium at 3.2 today, will add 20meq to daily regimen today -Continue to monitor renal/lytes daily VTE: ASA PPI: protonix Dispo: per Ortho recs, most likely 1-2 days Code(s): Z89.519 - ACQUIRED ABSENCE OF UNSPECIFIED LEG BELOW KNEE Code(s): Z89.519 - ACQUIRED ABSENCE OF UNSPECIFIED LEG BELOW KNEE (2) Neuropathy Current Visit: Yes Status: Acute Code(s): G62.9 - POLYNEUROPATHY, UNSPECIFIED (3) GERD (gastroesophageal reflux disease) Current Visit: Yes Status: Acute Code(s): K21.9 - GASTRO-ESOPHAGEAL REFLUX DISEASE WITHOUT ESOPHAGITIS (4) Diabetes mellitus Current Visit: No Status: Acute Code(s): E11.9 - TYPE 2 DIABETES MELLITUS WITHOUT COMPLICATIONS (5) HTN (hypertension) Current Visit: No Status: Acute Code(s): I10 - ESSENTIAL (PRIMARY) HYPERTENSION (6) Anemia Current Visit: No Status: Acute Code(s): D64.9 - ANEMIA, UNSPECIFIED (7) Hypokalemia Current Visit: Yes Status: Acute Code(s): E87.6 - HYPOKALEMIA <EUGENIA WILHELM - Last Filed: 06/11/23 09:04> MOO Encounter - MOO Encounter Attestation MOO Encounter Attestation: "IhkevinpersonalCLOTILDE Poole andhavediscussed pertinent aspects of their care with Eugenia Ordoñez agree with the history, physical exam (any modifications based on my personal exam will be noted below), assessment, and plan as outlined in original note. Please see immediately below for my summary of findings and additional assessment and plan along with any meaningful corrections/explanations to the Subjective/Objective portions of the MOO note will be noted." My portion of the encounter took place via telemedicine. -S/p R BKA for osteomyelitis. Pain well controlled. Anticipate discharge tomorrow <LACIE AMAYA - Last Filed: 06/11/23 21:15>
[2023-06-11 05:08] LABS: Absolute Neutrophil Ct (ANC) 3.12 x10^3/uL (1.4-6.9); BASOPHIL % 0.6 % (0.0-0.4); Basophil (Absolute #) 0.03 x10^3/uL (0-0.4); Eosinophil % 4.8 % (0.00-5.0); Eosinophil (Absolute #) 0.26 x10^3/uL (0-0.5); Hemoglobin 7.6 g/dL (12.0-16.0); IMMATURE GRAN # 0.02 x10^3u/L (0.00-0.03); IMMATURE GRAN % 0.4 % (0.00-0.4); Lymphocyte (Absolute #) 1.42 x10^3/uL (1.0-4.6); Lymphocytes % 26.1 % (24.0-44.0); Mean Cell Volume 91.9 fL (78-100); Mean Corpuscular Hemoglobin 27.9 pg (26-32); Mean Corpuscular Hgb Concent. 30.4 g/dL (32-36); Neutrophil % 57.1 % (36.0-66.0); Platelet Count 129 x10^3/uL (150-450); Red Blood Count 2.72 x10^6/uL (4.1-5.4); White Blood Count 5.5 x10^3/uL (4.0-10.5)
[2023-06-11] MEDS: Fortaz/Tazicef 2 GM in D5w 100ML Mini Bag 100 ML 100 ML IV SCH ×3 (05:26→22:24)
[2023-06-11] MEDS: Hydromorphone 1 mg/ml Injection IV PRN ×5 (05:27→22:23)
[2023-06-11 05:35] LABS: ANION GAP 8.9 MEQ/L (5-15); Calcium 8.3 mg/dL (8.4-10.2); Creatinine 1 0.99 mg/dL (0.52-1.04); EST GLOMERULAR FILTRATION RATE 65.3 ML/MIN; Potassium 3.2 mmol/L (3.5-5.1)
[2023-06-11] MEDS: Sodium Chloride 0.9% 1000 ML 1,000 ML IV SCH (09:25)
[2023-06-11] MEDS: SODIUM CHLORIDE FLUSH IV SCH (09:26)
[2023-06-11] MEDS: ECOTRIN 81 MG PO SCH (09:26)
[2023-06-11] MEDS: LACTULOSE 20 GM/30ML UD CUP PO SCH ×4 (09:26→22:24)
[2023-06-11] MEDS: DAPTOMYCIN IV SCH (09:26)
[2023-06-11] MEDS: Aldactone 25 MG PO SCH (09:27)
[2023-06-11] MEDS: FEOSOL 325 MG PO SCH (09:27)
[2023-06-11] MEDS: Protonix 40MG Tablet PO SCH ×2 (09:27→22:23)
[2023-06-11] MEDS: DEMADEX 20 MG PO SCH ×2 (09:28→16:46)
[2023-06-11] MEDS: Lantus Insulin SQ SCH ×2 (09:28→22:24)
[2023-06-11] MEDS: Klor Con PO SCH ×2 (09:28→22:24)
[2023-06-11] MEDS: NEURONTIN PO SCH ×4 (09:29→22:23)
[2023-06-11] MEDS ORDERED: Klor Con PO ONE (09:30)
[2023-06-11] MEDS: Sodium Chloride 0.9% 10 ML FLUSH Syringe PICC SCH ×2 (09:35→22:34)
--- NOTE | 2023-06-11 12:12 | PCM.NOTE ---
Date and Time: 06/11/23 1206 Subjective Assessment: Doing well laying in bed therapy at bedside with family states :she feels good right now" says she has missed a few pain pills since her pain is more tolerable. recovering right below knee amputation pending cultures Physical Exam - General General Appearance: no apparent distress, alert - Vascular Skin: Supple, not atrophic - Narrative Narrative Physical Exam: Podiatry Physical Exam coban intact right lower below knee amputation no new drainage in the dressing evenly straight on 2 pillows right knee is comfortable elina in place left lower extremity OBJECTIVE DATA Vital Signs: Vital Signs - 24 hr Temp Pulse Resp BP Pulse Ox 06/11/23 10:58 97.6 F 69 16 119/58 96 06/11/23 10:07 74 94 L 06/11/23 08:00 16 06/11/23 06:42 96.8 F 68 16 132/62 90 L 06/11/23 03:57 97.9 F 79 19 125/58 93 L 06/11/23 00:00 18 06/10/23 23:58 97.3 F 80 20 110/57 94 L 06/10/23 20:00 97.9 F 79 16 129/64 93 L 06/10/23 16:00 97.5 F 82 16 120/61 97 Pain Assessment - Last Documented Pain Intensity [Right Lower 7 Anterior] Pain Intensity [Right Lower 8 Anterior Knee] Pain Intensity 7 Pain Scale Used 0-10 Pain Scale Intake and Output: Intake & Output 06/09/23 06/10/23 06/11/23 06/12/23 06:59 06:59 06:59 06:59 Intake Total 880 2167 2266 120 Balance 880 2167 2266 120 Weight 122.9 kg 122.9 kg Lab Results: Lab Results-Last 24 Hours 06/10/23 06/10/23 06/11/23 Range/Units 16:20 21:03 04:00 WBC (4.0-10.5) x10^3/uL RBC (4.1-5.4) x10^6/uL Hgb (12.0-16.0) g/dL Hct (35-47) % MCV (78-100) fL MCH (26-32) pg MCHC (32-36) g/dL RDW (11.5-14.0) % Plt Count (150-450) x10^3/uL MPV (7.5-11.0) fL Gran % (36.0-66.0) % Immature Gran % (Auto) (0.00-0.4) % Nucleat RBC Rel Count (0.00-0.1) % Eos # (Auto) (0-0.5) x10^3/uL Immature Gran # (Auto) (0.00-0.03) x10^3u/L Absolute Lymphs (auto) (1.0-4.6) x10^3/uL Absolute Monos (auto) (0.0-1.3) x10^3/uL Absolute Nucleated RBC (0.00-0.01) x10^3u/L Lymphocytes % (24.0-44.0) % Monocytes % (0.0-12.0) % Eosinophils % (0.00-5.0) % Basophils % (0.0-0.4) % Absolute Granulocytes (1.4-6.9) x10^3/uL Basophils # (0-0.4) x10^3/uL Sodium (137-145) mmol/L Potassium (3.5-5.1) mmol/L Chloride (98-107) mmol/L Carbon Dioxide (22-30) mmol/L Anion Gap (5-15) MEQ/L BUN (7-17) mg/dL Creatinine (0.52-1.04) mg/dL Estimated GFR ML/MIN Glucose (74-106) mg/dL POC Glucometer 190 H 170 H (74 to 106) mg/dL Calcium (8.4-10.2) mg/dL Creatine Kinase 25 L (30-135) U/L 06/11/23 06/11/23 06/11/23 Range/Units 04:49 04:49 07:05 WBC 5.5 (4.0-10.5) x10^3/uL RBC 2.72 L (4.1-5.4) x10^6/uL Hgb 7.6 L (12.0-16.0) g/dL Hct 25.0 L (35-47) % MCV 91.9 (78-100) fL MCH 27.9 (26-32) pg MCHC 30.4 L (32-36) g/dL RDW 16.0 H (11.5-14.0) % Plt Count 129 L (150-450) x10^3/uL MPV 10.0 (7.5-11.0) fL Gran % 57.1 (36.0-66.0) % Immature Gran % (Auto) 0.4 (0.00-0.4) % Nucleat RBC Rel Count 0.0 (0.00-0.1) % Eos # (Auto) 0.26 (0-0.5) x10^3/uL Immature Gran # (Auto) 0.02 (0.00-0.03) x10^3u/L Absolute Lymphs (auto) 1.42 (1.0-4.6) x10^3/uL Absolute Monos (auto) 0.60 (0.0-1.3) x10^3/uL Absolute Nucleated RBC 0.00 (0.00-0.01) x10^3u/L Lymphocytes % 26.1 (24.0-44.0) % Monocytes % 11.0 (0.0-12.0) % Eosinophils % 4.8 (0.00-5.0) % Basophils % 0.6 (0.0-0.4) % Absolute Granulocytes 3.12 (1.4-6.9) x10^3/uL Basophils # 0.03 (0-0.4) x10^3/uL Sodium 136 L (137-145) mmol/L Potassium 3.2 L (3.5-5.1) mmol/L Chloride 100 (98-107) mmol/L Carbon Dioxide 31 H (22-30) mmol/L Anion Gap 8.9 (5-15) MEQ/L BUN 15 (7-17) mg/dL Creatinine 0.99 (0.52-1.04) mg/dL Estimated GFR 65.3 ML/MIN Glucose 132 H (74-106) mg/dL POC Glucometer 124 H (74 to 106) mg/dL Calcium 8.3 L (8.4-10.2) mg/dL Creatine Kinase (30-135) U/L 06/11/23 Range/Units 10:54 WBC (4.0-10.5) x10^3/uL RBC (4.1-5.4) x10^6/uL Hgb (12.0-16.0) g/dL Hct (35-47) % MCV (78-100) fL MCH (26-32) pg MCHC (32-36) g/dL RDW (11.5-14.0) % Plt Count (150-450) x10^3/uL MPV (7.5-11.0) fL Gran % (36.0-66.0) % Immature Gran % (Auto) (0.00-0.4) % Nucleat RBC Rel Count (0.00-0.1) % Eos # (Auto) (0-0.5) x10^3/uL Immature Gran # (Auto) (0.00-0.03) x10^3u/L Absolute Lymphs (auto) (1.0-4.6) x10^3/uL Absolute Monos (auto) (0.0-1.3) x10^3/uL Absolute Nucleated RBC (0.00-0.01) x10^3u/L Lymphocytes % (24.0-44.0) % Monocytes % (0.0-12.0) % Eosinophils % (0.00-5.0) % Basophils % (0.0-0.4) % Absolute Granulocytes (1.4-6.9) x10^3/uL Basophils # (0-0.4) x10^3/uL Sodium (137-145) mmol/L Potassium (3.5-5.1) mmol/L Chloride (98-107) mmol/L Carbon Dioxide (22-30) mmol/L Anion Gap (5-15) MEQ/L BUN (7-17) mg/dL Creatinine (0.52-1.04) mg/dL Estimated GFR ML/MIN Glucose (74-106) mg/dL POC Glucometer 184 H (74 to 106) mg/dL Calcium (8.4-10.2) mg/dL Creatine Kinase (30-135) U/L Multi-Disciplinary Progress Notes: Multi-Disciplinary Progress Notes 06/11/23 10:00 Case Management Note by Ayaka Mclean S/W PATIENT- SHE CONTINUES TO PLAN TO RETURN TO [facility] AT TIME OF DC. FAXED CLINICAL UPDATE TO [facility] REQUESTED Initialized on 06/11/23 10:00 - END OF NOTE Assessment/Plan (1) S/P BKA (below knee amputation) Current Visit: Yes Status: Acute Qualifiers: Laterality: right Qualified Code(s): Z89.511 - Acquired absence of right leg below knee Code(s): Z89.519 - ACQUIRED ABSENCE OF UNSPECIFIED LEG BELOW KNEE
[2023-06-11] MEDS ORDERED: NORCO 5/325 MG PO PRN (13:35)
[2023-06-11] MEDS: ZOCOR 20MG PO SCH (22:23)
[2023-06-11] MEDS: MELATONIN PO SCH (22:23)
[2023-06-12] MEDS: Sodium Chloride 0.9% 1000 ML 1,000 ML IV SCH (02:21)
[2023-06-12] MEDS: Hydromorphone 1 mg/ml Injection IV PRN ×5 (02:23→18:47)
[2023-06-12 04:52] LABS: Absolute Neutrophil Ct (ANC) 3.21 x10^3/uL (1.4-6.9); BASOPHIL % 0.6 % (0.0-0.4); Basophil (Absolute #) 0.03 x10^3/uL (0-0.4); Eosinophil % 5.2 % (0.00-5.0); Eosinophil (Absolute #) 0.27 x10^3/uL (0-0.5); Hematocrit 26.5 % (35-47); IMMATURE GRAN # 0.01 x10^3u/L (0.00-0.03); IMMATURE GRAN % 0.2 % (0.00-0.4); Lymphocyte (Absolute #) 1.18 x10^3/uL (1.0-4.6); Lymphocytes % 22.7 % (24.0-44.0); Mean Cell Volume 91.4 fL (78-100); Mean Corpuscular Hemoglobin 27.6 pg (26-32); Mean Corpuscular Hgb Concent. 30.2 g/dL (32-36); Mean Platelet Volume 9.5 fL (7.5-11.0); Monocyte (Absolute #) 0.49 x10^3/uL (0.0-1.3); Monocytes % 9.4 % (0.0-12.0); Neutrophil % 61.9 % (36.0-66.0); Platelet Count 131 x10^3/uL (150-450); Red Cell Distribution Width 15.9 % (11.5-14.0); White Blood Count 5.2 x10^3/uL (4.0-10.5)
--- NOTE | 2023-06-12 05:05 | PCM.NOTE ---
Date and Time: 06/12/23 0504 Subjective Assessment: is a 58 year old female with a pmhx of DM, HTN, obesity, GERD, neuropathy, CHF, recent surgical repair/graft of right ankle (04/28/23) with Dr. Soto, and chronic anemia who presents to the hospital s/p right BKA (06/08/23). Hospitalist team has been consulted for medical management. Patient e ndorsing right extremity pain postoperatively. 06/09/23: Met with patient bedside. Endorses improved pain with Diluadid, still rating it at 8/10 on numerical pain scale. No overnight events noted. Reviewed Ortho progress note, drain was removed today. Plan for IP for about two more days. Patient will need a total of 5 post op days of IV antibiotics pending cultures, then 5 more days of oral antibiotics. Dressing change on Day 5 with nonstick dressing. Shower on postop day 7. NWB on RLE. Return appt on 07/02/23. Discussed pain control with patient and ortho and decided on [place]/Dilaudid alt for now. Patient takes 2mg of Dilaudid at [place] on regular basis. Denies fever,cough, sob, cp, abdominal pain, KERR, dizziness, N/V/D. 06/10/23: Met with patient bedside. S/P RBKA PODS#2, doing well. Endorses continued pain to her right thigh 8/10, Patient states she would like her norco scheduled as she feels she has not gotten it in a timely manner. No overnight events. Lab findings stable. Plan it to continue abx pending cultures. She will d/c to SNF on discharge. 06/11/23: No overnight events noted. PODS#3, continues to do well. Patient states pain is under control. Declines [place] at this time. Denies fever,cough, sob, cp, abdominal pain, KERR, dizziness, N/V/D. Plan for discharge most likely tomorrow if cultures are back. Objective Exam Wound Assessment: Skin/Wound Assessment Wound/Incision Assessment Start: 06/08/23 08:05 Text: Status: Active Freq: Q6H Protocol: Document 06/12/23 02:00 LB (Rec: 06/12/23 02:48 LB [id number]) Wound/Incision Assessment Left Posterior Buttock Wound Assessment Shift Assessment Wound Type Pressure Ulcer Wound Stage Stage II Drainage Amount None General Appearance Open to air Wound Bed Greatest Portion Shiny Wound Bed Lesser Portion Red (Granulation),Shiny Comment ZINC CREAM APPLIED prn Right Lower Knee Wound Assessment Shift Assessment Wound Type Amputation Wound Stage Non Pressure Wound Dressing Status Dry & Intact Drainage Amount None Primary Dressing Gauze Pads Secondary Dressing Gauze Roll/Wrap Comment DRESSING TO REMAIN IN PLACE PER ORTHO, NO NEW DRAINAGE NOTED. REMAINS TRUE Wound Photo Photo Taken Yes OBJECTIVE DATA Vital Signs: Vital Signs - 24 hr Temp Pulse Resp BP Pulse Ox 06/12/23 04:00 97.9 F 79 18 128/67 94 L 06/12/23 00:00 98.0 F 75 17 146/68 92 L 06/11/23 18:37 98.0 F 79 17 134/65 93 L 06/11/23 16:00 97.2 F 68 18 139/62 94 L 06/11/23 12:00 16 06/11/23 10:58 97.6 F 69 16 119/58 96 06/11/23 10:07 74 94 L 06/11/23 08:00 16 06/11/23 06:42 96.8 F 68 16 132/62 90 L Pain Assessment - Last Documented Pain Intensity [Right Lower 7 Anterior] Pain Intensity [Right Lower 8 Anterior Knee] Pain Intensity 9 Pain Scale Used 0-10 Pain Scale Intake and Output: Intake & Output 06/09/23 06/10/23 06/11/23 06/12/23 11:59 11:59 11:59 11:59 Intake Total 880 2167 2386 840 Balance 880 2167 2386 840 Weight 122.9 kg Lab Results: Lab Results-Last 24 Hours 06/11/23 06/11/23 06/11/23 Range/Units 04:00 04:49 04:49 WBC 5.5 (4.0-10.5) x10^3/uL RBC 2.72 L (4.1-5.4) x10^6/uL Hgb 7.6 L (12.0-16.0) g/dL Hct 25.0 L (35-47) % MCV 91.9 (78-100) fL MCH 27.9 (26-32) pg MCHC 30.4 L (32-36) g/dL RDW 16.0 H (11.5-14.0) % Plt Count 129 L (150-450) x10^3/uL MPV 10.0 (7.5-11.0) fL Gran % 57.1 (36.0-66.0) % Immature Gran % (Auto) 0.4 (0.00-0.4) % Nucleat RBC Rel Count 0.0 (0.00-0.1) % Eos # (Auto) 0.26 (0-0.5) x10^3/uL Immature Gran # (Auto) 0.02 (0.00-0.03) x10^3u/L Absolute Lymphs (auto) 1.42 (1.0-4.6) x10^3/uL Absolute Monos (auto) 0.60 (0.0-1.3) x10^3/uL Absolute Nucleated RBC 0.00 (0.00-0.01) x10^3u/L Lymphocytes % 26.1 (24.0-44.0) % Monocytes % 11.0 (0.0-12.0) % Eosinophils % 4.8 (0.00-5.0) % Basophils % 0.6 (0.0-0.4) % Absolute Granulocytes 3.12 (1.4-6.9) x10^3/uL Basophils # 0.03 (0-0.4) x10^3/uL Sodium 136 L (137-145) mmol/L Potassium 3.2 L (3.5-5.1) mmol/L Chloride 100 (98-107) mmol/L Carbon Dioxide 31 H (22-30) mmol/L Anion Gap 8.9 (5-15) MEQ/L BUN 15 (7-17) mg/dL Creatinine 0.99 (0.52-1.04) mg/dL Estimated GFR 65.3 ML/MIN Glucose 132 H (74-106) mg/dL POC Glucometer (74 to 106) mg/dL Calcium 8.3 L (8.4-10.2) mg/dL Creatine Kinase 25 L (30-135) U/L 06/11/23 06/11/23 06/11/23 Range/Units 07:05 10:54 16:15 WBC (4.0-10.5) x10^3/uL RBC (4.1-5.4) x10^6/uL Hgb (12.0-16.0) g/dL Hct (35-47) % MCV (78-100) fL MCH (26-32) pg MCHC (32-36) g/dL RDW (11.5-14.0) % Plt Count (150-450) x10^3/uL MPV (7.5-11.0) fL Gran % (36.0-66.0) % Immature Gran % (Auto) (0.00-0.4) % Nucleat RBC Rel Count (0.00-0.1) % Eos # (Auto) (0-0.5) x10^3/uL Immature Gran # (Auto) (0.00-0.03) x10^3u/L Absolute Lymphs (auto) (1.0-4.6) x10^3/uL Absolute Monos (auto) (0.0-1.3) x10^3/uL Absolute Nucleated RBC (0.00-0.01) x10^3u/L Lymphocytes % (24.0-44.0) % Monocytes % (0.0-12.0) % Eosinophils % (0.00-5.0) % Basophils % (0.0-0.4) % Absolute Granulocytes (1.4-6.9) x10^3/uL Basophils # (0-0.4) x10^3/uL Sodium (137-145) mmol/L Potassium (3.5-5.1) mmol/L Chloride (98-107) mmol/L Carbon Dioxide (22-30) mmol/L Anion Gap (5-15) MEQ/L BUN (7-17) mg/dL Creatinine (0.52-1.04) mg/dL Estimated GFR ML/MIN Glucose (74-106) mg/dL POC Glucometer 124 H 184 H 176 H (74 to 106) mg/dL Calcium (8.4-10.2) mg/dL Creatine Kinase (30-135) U/L 06/11/23 06/12/23 Range/Units 20:57 04:47 WBC 5.2 (4.0-10.5) x10^3/uL RBC 2.90 L (4.1-5.4) x10^6/uL Hgb 8.0 L (12.0-16.0) g/dL Hct 26.5 L (35-47) % MCV 91.4 (78-100) fL MCH 27.6 (26-32) pg MCHC 30.2 L (32-36) g/dL RDW 15.9 H (11.5-14.0) % Plt Count 131 L (150-450) x10^3/uL MPV 9.5 (7.5-11.0) fL Gran % 61.9 (36.0-66.0) % Immature Gran % (Auto) 0.2 (0.00-0.4) % Nucleat RBC Rel Count 0.0 (0.00-0.1) % Eos # (Auto) 0.27 (0-0.5) x10^3/uL Immature Gran # (Auto) 0.01 (0.00-0.03) x10^3u/L Absolute Lymphs (auto) 1.18 (1.0-4.6) x10^3/uL Absolute Monos (auto) 0.49 (0.0-1.3) x10^3/uL Absolute Nucleated RBC 0.00 (0.00-0.01) x10^3u/L Lymphocytes % 22.7 L (24.0-44.0) % Monocytes % 9.4 (0.0-12.0) % Eosinophils % 5.2 H (0.00-5.0) % Basophils % 0.6 (0.0-0.4) % Absolute Granulocytes 3.21 (1.4-6.9) x10^3/uL Basophils # 0.03 (0-0.4) x10^3/uL Sodium (137-145) mmol/L Potassium (3.5-5.1) mmol/L Chloride (98-107) mmol/L Carbon Dioxide (22-30) mmol/L Anion Gap (5-15) MEQ/L BUN (7-17) mg/dL Creatinine (0.52-1.04) mg/dL Estimated GFR ML/MIN Glucose (74-106) mg/dL POC Glucometer 200 H (74 to 106) mg/dL Calcium (8.4-10.2) mg/dL Creatine Kinase (30-135) U/L Multi-Disciplinary Progress Notes: Multi-Disciplinary Progress Notes 06/11/23 15:14 Occupational Therapy Note by Js(Blaze#[id number])[facility] Occupational Therapy Treatment Note [id number] Patient supine in bed with BLE elevated on three pillows upon OT approach. Patient's daughter and other person (Emile?) present in the room also. Patient agreeable to treatment session this date. She stated that her pain "is doing good" and rated RLE pain at 6-7/10. OTR educated patient on residual limb positioning as well as skin checks and care following removal of bandages and sutures. She verbalized understanding. Patient then participated in bed mobility to scoot herself up in bed using BUE and LLE bridging technique with SBA and mod verbal cueing from OTR. OTR educated patient on LLE AROM and UB strengthening ther ex's using theraband (red) with provided theraband and written, illustrated handout in order to promote improved strength, endurance, and ROM for ADL performance, bed mobility, and functional positioning for I/ADLs. Exercises included bicep curls, chest press, rows, chest flys, leg press, thigh abduction, hip flexion (BLE), knee flexion/exension (BLE), hip abduction (BLE), and ankle flexion/extension (LLE). Patient aayush's good carryover of new strengthening and AROM ther ex's 1 set of 10 repetitions each exercise. Patient aayush's decreased R hip strength with difficulty lifting residual limb off of bed this date and limited L ankle AROM, but is able to achieve appropriate positioning of LLE to complete bridge during bed mobility. Patient supine in bed with HOB elevated and BLE elevated on one pillow at session end. Phone, call light, and bedside table within reach with nurse at bedside at end of treatment session. OTR recommends OT and PT at SNF to continue addressing I/ADLs, functional transfers, and functional strengthening impacting independence and safety with I/ADLs. Initialized on 06/11/23 15:14 - END OF NOTE 06/11/23 10:00 Case Management Note by Ayaka Mclean S/W PATIENT- SHE CONTINUES TO PLAN TO RETURN TO [facility] AT TIME OF DC. FAXED CLINICAL UPDATE TO [facility] REQUESTED Initialized on 06/11/23 10:00 - END OF NOTE Assessment/Plan (1) S/P BKA (below knee amputation) Current Visit: Yes Status: Acute Qualifiers: Laterality: right Qualified Code(s): Z89.511 - Acquired absence of right leg below knee Assessment & Plan: -PODS#0 -Pain control/abx managed by ortho, currently on ceftazidime/daptomycin -Dressing changes per ortho 06/09: -Pain meds changed to [place]/diluadid -Ortho note reviewed, "Plan await antibiotic sensitivities in 1-2 more days.long term then on a total of 5 postop days of appropriate antibiotics.Then may switch to p.o. antibiotics for additional 5 days. May change dressing with dried nonstick dressing postop day 5.May shower postop day 7.Nonweightbearing on the right lower extremity.Return to see me July 02 for suture removalAnd starting of a stump staff cytotechnologist. Return sooner if wound appears infected.May resume previous pain medications and may need additional pain medication on top of this for several weeks.I will be out of town for the next 3 daysBut may be contacted with questions [phone]." 06/10: -Per ortho continue ASA 81mg for anticoag 06/11: -Cultures pending, continue ceftazidime/daptomycin for now -Ortho following -Pain controlled with diluadid, will continue home dose on d/c Code(s): Z89.519 - ACQUIRED ABSENCE OF UNSPECIFIED LEG BELOW KNEE (2) Neuropathy Current Visit: Yes Status: Acute Assessment & Plan: -Continue home medication gabapentin Code(s): G62.9 - POLYNEUROPATHY, UNSPECIFIED (3) GERD (gastroesophageal reflux disease) Current Visit: Yes Status: Acute Assessment & Plan: -Continue protonix Code(s): K21.9 - GASTRO-ESOPHAGEAL REFLUX DISEASE WITHOUT ESOPHAGITIS (4) Diabetes mellitus Current Visit: No Status: Acute Assessment & Plan: -ADA diet -SSI, monitor closely, may need adjustments -Continue home glargine -A1c pending 06/10: -A1c 5.63, blood glucose levels stable Code(s): E11.9 - TYPE 2 DIABETES MELLITUS WITHOUT COMPLICATIONS (5) HTN (hypertension) Current Visit: No Status: Acute Assessment & Plan: -stable Code(s): I10 - ESSENTIAL (PRIMARY) HYPERTENSION (6) Anemia Current Visit: No Status: Acute Assessment & Plan: -chronic, hgb at 7.8 s/p surgery -H&H q6h, transfuse if hgb <7 -continue ferrous sulfate 06/09: -Stable at 7.5 06/10 -Stable at 8.1 06/11/23: -Stable at 7.6 #Hypokalemia -Most likely multifocal with torsemide and GI loss -Potassium at 3.2 today, will add 20meq to daily regimen today -Continue to monitor renal/lytes daily VTE: ASA PPI: protonix Dispo: per Ortho recs, most likely 1-2 days Code(s): Z89.519 - ACQUIRED ABSENCE OF UNSPECIFIED LEG BELOW KNEE (2) Neuropathy Current Visit: Yes Status: Acute Code(s): G62.9 - POLYNEUROPATHY, UNSPECIFIED (3) GERD (gastroesophageal reflux disease) Current Visit: Yes Status: Acute Code(s): K21.9 - GASTRO-ESOPHAGEAL REFLUX DISEASE WITHOUT ESOPHAGITIS (4) Diabetes mellitus Current Visit: No Status: Acute Code(s): E11.9 - TYPE 2 DIABETES MELLITUS WITHOUT COMPLICATIONS (5) HTN (hypertension) Current Visit: No Status: Acute Code(s): I10 - ESSENTIAL (PRIMARY) HYPERTEN SHAWN (6) Anemia Current Visit: No Status: Acute Code(s): D64.9 - ANEMIA, UNSPECIFIED (7) Hypokalemia Current Visit: Yes Status: Acute Code(s): E87.6 - HYPOKALEMIA
[2023-06-12 05:35] LABS: ANION GAP 7.8 MEQ/L (5-15); Calcium 8.7 mg/dL (8.4-10.2); Creatinine 1 0.93 mg/dL (0.52-1.04); EST GLOMERULAR FILTRATION RATE 70.4 ML/MIN; Potassium 3.1 mmol/L (3.5-5.1)
[2023-06-12] MEDS: Fortaz/Tazicef 2 GM in D5w 100ML Mini Bag 100 ML 100 ML IV SCH ×2 (06:47→12:54)
[2023-06-12 06:53] VITALS: RESP 17
[2023-06-12] MEDS ORDERED: Klor Con PO ONE (07:30)
--- NOTE | 2023-06-12 08:54 | PCM.NOTE ---
Date and Time: 06/12/23 0850 Subjective Assessment: Postop day 4 from right below-knee amputation, moderate pain, Physical Exam - Narrative Narrative Physical Exam: Alert and orient x 3 lying in bed Able to lift leg. Dressing clean dry and intact Culture still pending OBJECTIVE DATA Vital Signs: Vital Signs - 24 hr Temp Pulse Resp BP Pulse Ox 06/12/23 06:53 97.3 F 69 17 131/61 91 L 06/12/23 04:00 97.9 F 79 18 128/67 94 L 06/12/23 00:00 98.0 F 75 17 146/68 92 L 06/11/23 18:37 98.0 F 79 17 134/65 93 L 06/11/23 16:00 97.2 F 68 18 139/62 94 L 06/11/23 12:00 16 06/11/23 10:58 97.6 F 69 16 119/58 96 06/11/23 10:07 74 94 L Pain Assessment - Last Documented Pain Intensity [Right Lower 7 Anterior] Pain Intensity [Right Lower 8 Anterior Knee] Pain Intensity 8 Pain Scale Used 0-10 Pain Scale Intake and Output: Intake & Output 06/09/23 06/10/23 06/11/23 06/12/23 11:59 11:59 11:59 11:59 Intake Total 880 2167 2386 1080 Balance 880 2167 2386 1080 Weight 122.9 kg Lab Results: Lab Results-Last 24 Hours 06/11/23 06/11/23 06/11/23 Range/Units 10:54 16:15 20:57 WBC (4.0-10.5) x10^3/uL RBC (4.1-5.4) x10^6/uL Hgb (12.0-16.0) g/dL Hct (35-47) % MCV (78-100) fL MCH (26-32) pg MCHC (32-36) g/dL RDW (11.5-14.0) % Plt Count (150-450) x10^3/uL MPV (7.5-11.0) fL Gran % (36.0-66.0) % Immature Gran % (Auto) (0.00-0.4) % Nucleat RBC Rel Count (0.00-0.1) % Eos # (Auto) (0-0.5) x10^3/uL Immature Gran # (Auto) (0.00-0.03) x10^3u/L Absolute Lymphs (auto) (1.0-4.6) x10^3/uL Absolute Monos (auto) (0.0-1.3) x10^3/uL Absolute Nucleated RBC (0.00-0.01) x10^3u/L Lymphocytes % (24.0-44.0) % Monocytes % (0.0-12.0) % Eosinophils % (0.00-5.0) % Basophils % (0.0-0.4) % Absolute Granulocytes (1.4-6.9) x10^3/uL Basophils # (0-0.4) x10^3/uL Sodium (137-145) mmol/L Potassium (3.5-5.1) mmol/L Chloride (98-107) mmol/L Carbon Dioxide (22-30) mmol/L Anion Gap (5-15) MEQ/L BUN (7-17) mg/dL Creatinine (0.52-1.04) mg/dL Estimated GFR ML/MIN Glucose (74-106) mg/dL POC Glucometer 184 H 176 H 200 H (74 to 106) mg/dL Calcium (8.4-10.2) mg/dL 06/12/23 06/12/23 06/12/23 Range/Units 04:47 04:47 06:33 WBC 5.2 (4.0-10.5) x10^3/uL RBC 2.90 L (4.1-5.4) x10^6/uL Hgb 8.0 L (12.0-16.0) g/dL Hct 26.5 L (35-47) % MCV 91.4 (78-100) fL MCH 27.6 (26-32) pg MCHC 30.2 L (32-36) g/dL RDW 15.9 H (11.5-14.0) % Plt Count 131 L (150-450) x10^3/uL MPV 9.5 (7.5-11.0) fL Gran % 61.9 (36.0-66.0) % Immature Gran % (Auto) 0.2 (0.00-0.4) % Nucleat RBC Rel Count 0.0 (0.00-0.1) % Eos # (Auto) 0.27 (0-0.5) x10^3/uL Immature Gran # (Auto) 0.01 (0.00-0.03) x10^3u/L Absolute Lymphs (auto) 1.18 (1.0-4.6) x10^3/uL Absolute Monos (auto) 0.49 (0.0-1.3) x10^3/uL Absolute Nucleated RBC 0.00 (0.00-0.01) x10^3u/L Lymphocytes % 22.7 L (24.0-44.0) % Monocytes % 9.4 (0.0-12.0) % Eosinophils % 5.2 H (0.00-5.0) % Basophils % 0.6 (0.0-0.4) % Absolute Granulocytes 3.21 (1.4-6.9) x10^3/uL Basophils # 0.03 (0-0.4) x10^3/uL Sodium 135 L (137-145) mmol/L Potassium 3.1 L (3.5-5.1) mmol/L Chloride 96 L (98-107) mmol/L Carbon Dioxide 34 H (22-30) mmol/L Anion Gap 7.8 (5-15) MEQ/L BUN 14 (7-17) mg/dL Creatinine 0.93 (0.52-1.04) mg/dL Estimated GFR 70.4 ML/MIN Glucose 203 H (74-106) mg/dL POC Glucometer 173 H (74 to 106) mg/dL Calcium 8.7 (8.4-10.2) mg/dL Multi-Disciplinary Progress Notes: Multi-Disciplinary Progress Notes 06/11/23 15:14 Occupational Therapy Note by Js(Blaze#[id number]),[facility] Occupational Therapy Treatment Note [id number] Patient supine in bed with BLE elevated on three pillows upon OT approach. Patient's daughter and other person (Emile?) present in the room also. Patient agreeable to treatment session this date. She stated that her pain "is doing good" and rated RLE pain at 6-7/10. OTR educated patient on residual limb positioning as well as skin checks and care following removal of bandages and sutures. She verbalized understanding. Patient then participated in bed mobility to scoot herself up in bed using BUE and LLE bridging technique with SBA and mod verbal cueing from OTR. OTR educated patient on LLE AROM and UB strengthening ther ex's using theraband (red) with provided theraband and written, illustrated handout in order to promote improved strength, endurance, and ROM for ADL performance, bed mobility, and functional positioning for I/ADLs. Exercises included bicep curls, chest press, rows, chest flys, leg press, thigh abduction, hip flexion (BLE), knee flexion/exension (BLE), hip abduction (BLE), and ankle flexion/extension (LLE). Patient aayush's good carryover of new strengthening and AROM ther ex's 1 set of 10 repetitions each exercise. Patient aayush's decreased R hip strength with difficulty lifting residual limb off of bed this date and limited L ankle AROM, but is able to achieve appropriate positioning of LLE to complete bridge during bed mobility. Patient supine in bed with HOB elevated and BLE elevated on one pillow at session end. Phone, call light, and bedside table within reach with nurse at bedside at end of treatment session. OTR recommends OT and PT at SNF to continue addressing I/ADLs, functional transfers, and functional strengthening impacting independence and safety with I/ADLs. Initialized on 06/11/23 15:14 - END OF NOTE 06/11/23 10:00 Case Management Note by Ayaka Mclean S/W PATIENT- SHE CONTINUES TO PLAN TO RETURN TO [facility] AT TIME OF DC. FAXED CLINICAL UPDATE TO [facility] REQUESTED Initialized on 06/11/23 10:00 - END OF NOTE Assessment/Plan (1) S/P BKA (below knee amputation) Current Visit: Yes Status: Acute Qualifiers: Laterality: right Qualified Code(s): Z89.511 - Acquired absence of right leg below knee Assessment & Plan: Doing well status post right BKA with pending cultures Plan:May have dry nonstick dressing changes as needed starting June 13September shower on June 15September have scheduled DilaudidP.o. until seen by her pain management doctor Patient may have her last IV dose ofDaptomycin and ceftazidime tomorrow then may switch to p.o. Cipro 500 mg p.o. twice daily for [address] Fonseca July 02 for suture removal and starting stump ward supervisor Return immediately if stump appears infected Code(s): Z89.519 - ACQUIRED ABSENCE OF UNSPECIFIED LEG BELOW KNEE
[2023-06-12] MEDS: Klor Con PO SCH (09:07)
[2023-06-12] MEDS: DEMADEX 20 MG PO SCH ×2 (09:07→17:13)
[2023-06-12] MEDS: Protonix 40MG Tablet PO SCH (09:07)
[2023-06-12] MEDS: NEURONTIN PO SCH ×3 (09:07→17:13)
[2023-06-12] MEDS: LACTULOSE 20 GM/30ML UD CUP PO SCH ×4 (09:10→17:15)
[2023-06-12] MEDS: Aldactone 25 MG PO SCH (09:10)
[2023-06-12] MEDS: Lantus Insulin SQ SCH (09:10)
[2023-06-12] MEDS: ECOTRIN 81 MG PO SCH (09:10)
[2023-06-12] MEDS: FEOSOL 325 MG PO SCH (09:10)
[2023-06-12] MEDS: SODIUM CHLORIDE FLUSH IV SCH (09:12)
[2023-06-12] MEDS: DAPTOMYCIN IV SCH (09:12)
[2023-06-12] MEDS: Sodium Chloride 0.9% 10 ML FLUSH Syringe PICC SCH (09:13)
--- NOTE | 2023-06-12 10:15 | PCM.DS ---
Discharge Summary Date of Admission: 06/08/23 05:45 Date of Discharge: 06/12/23 Admitting Physician: KIKI BECKER MD Primary Care Provider: KALA HERNANDEZ <EUGENIA WILHELM - Last Filed: 06/12/23 11:59> Date of Admission: 06/08/23 05:45 Admitting Physician: KIKI BECKER MD Primary Care Provider: KALA HERNANDEZ <LACIE AMAYA - Last Filed: 06/12/23 23:08> Allergies <EUGENIA WILHELM - Last Filed: 06/12/23 11:59> <LACIE AMAYA - Last Filed: 06/12/23 23:08> Allergies adhesive tape Adverse Reaction (Intermediate, Verified 03/24/23 11:10) sertraline [From Zoloft] Adverse Reaction (Intermediate, Verified 04/27/23 15:32) Hospital Summary - Hospital Course Hospital Course: is a 58 year old female with a pmhx of DM, HTN, obesity, GERD, neuropathy, CHF, recent surgical repair/graft of right ankle (04/28/23) with Dr. Soto, and chronic anemia who presents to the hospital s/p right BKA (06/08/23). Hospitalist team has been consulted for medical management. Patient is PODS#4 and doing well. Pain is under control. Cultures currently pending. She has been cleared by Dr. Agarwal to return to the nursing facility. Per Ortho, she is to remain on Ceftazidime and Daptomycin 06/12/23 and 06/13/23, then she will is to continue on oral Cipro 500mg bid x 5 more days. May have dry nonstick dressing changes as needed starting June 13. May shower on June 15. She is to see Dr. Agarwal on 07/02/23 for suture removal and to start stump lead relay tester/ culture results. Patient to have home med dilaudid scheduled for one week. Discharge Note New Diagnosis: s/p RBKA New Medications: ceftazidime/daptomycin Follow Up: PCP/ Ortho Results pending: cultures Latest Assessment & Plan (1) S/P BKA (below knee amputation) Current Visit: Yes Status: Acute Qualifiers: Laterality: right Qualified Code(s): Z89.511 - Acquired absence of right leg below knee Assessment & Plan: -PODS#0 -Pain control/abx managed by ortho, currently on ceftazidime/daptomycin -Dressing changes per ortho 06/09: -Pain meds changed to [place]/diluadid -Ortho note reviewed, "Plan await antibiotic sensitivities in 1-2 more days.care home then on a total of 5 postop days of appropriate antibiotics.Then may switch to p.o. antibiotics for additional 5 days. May change dressing with dried nonstick dressing postop day 5.May shower postop day 7.Nonweightbearing on the right lower extremity.Return to see me July 02 for suture removalAnd starting of a stump lead relay tester. Return sooner if wound appears infected.May resume previous pain medications and may need additional pain medication on top of this for several weeks.I will be out of town for the next 3 daysBut may be contacted with questions [phone]." 06/10: -Per ortho continue ASA 81mg for anticoag 06/11: -Cultures pending, continue ceftazidime/daptomycin for now -Ortho following -Pain controlled with diluadid, will continue home dose on d/c Code(s): Z89.519 - ACQUIRED ABSENCE OF UNSPECIFIED LEG BELOW KNEE (2) Neuropathy Current Visit: Yes Status: Acute Assessment & Plan: -Continue home medication gabapentin Code(s): G62.9 - POLYNEUROPATHY, UNSPECIFIED (3) GERD (gastroesophageal reflux disease) Current Visit: Yes Status: Acute Assessment & Plan: -Continue protonix Code(s): K21.9 - GASTRO-ESOPHAGEAL REFLUX DISEASE WITHOUT ESOPHAGITIS (4) Diabetes mellitus Current Visit: No Status: Acute Assessment & Plan: -ADA diet -SSI, monitor closely, may need adjustments -Continue home glargine -A1c pending 06/10: -A1c 5.63, blood glucose levels stable Code(s): E11.9 - TYPE 2 DIABETES MELLITUS WITHOUT COMPLICATIONS (5) HTN (hypertension) Current Visit: No Status: Acute Assessment & Plan: -stable Code(s): I10 - ESSENTIAL (PRIMARY) HYPERTENSION (6) Anemia Current Visit: No Status: Acute Assessment & Plan: -chronic, hgb at 7.8 s/p surgery -H&H q6h, transfuse if hgb <7 -continue ferrous sulfate 06/09: -Stable at 7.5 06/10 -Stable at 8.1 06/11/23: -Stable at 7.6 #Hypokalemia -Most likely multifocal with torsemide and GI loss -Potassium at 3.2 today, will add 20meq to daily regimen today -Continue to monitor renal/lytes daily I spent 35 minutes [id number] with the patient on the day of discharge performing discharge exam, discussing hospital stay and discharge instructions with patient and caregivers, preparation of discharge records, prescriptions & referral forms and addressing any questions/concerns the patient had as documented above. - Vitals & Intake/Output Vital Signs: Vital Signs Temperature 97.3 F 06/12/23 06:53 Pulse Rate 69 06/12/23 06:53 Respiratory Rate 17 06/12/23 06:53 Blood Pressure 131/61 06/12/23 06:53 O2 Sat by Pulse Oximetry 91 L 06/12/23 06:53 Intake & Output: Intake & Output 06/09/23 06/10/23 06/11/23 06/12/23 11:59 11:59 11:59 11:59 Intake Total 880 2167 2386 1080 Balance 880 2167 2386 1080 Weight 122.9 kg - Lab Result Diagrams: 06/12/23 04:47 06/12/23 10:20 Lab Results-Last 24 Hrs: Lab Results-Last 24 Hours 06/11/23 06/11/23 06/11/23 Range/Units 10:54 16:15 20:57 WBC (4.0-10.5) x10^3/uL RBC (4.1-5.4) x10^6/uL Hgb (12.0-16.0) g/dL Hct (35-47) % MCV (78-100) fL MCH (26-32) pg MCHC (32-36) g/dL RDW (11.5-14.0) % Plt Count (150-450) x10^3/uL MPV (7.5-11.0) fL Gran % (36.0-66.0) % Immature Gran % (Auto) (0.00-0.4) % Nucleat RBC Rel Count (0.00-0.1) % Eos # (Auto) (0-0.5) x10^3/uL Immature Gran # (Auto) (0.00-0.03) x10^3u/L Absolute Lymphs (auto) (1.0-4.6) x10^3/uL Absolute Monos (auto) (0.0-1.3) x10^3/uL Absolute Nucleated RBC (0.00-0.01) x10^3u/L Lymphocytes % (24.0-44.0) % Monocytes % (0.0-12.0) % Eosinophils % (0.00-5.0) % Basophils % (0.0-0.4) % Absolute Granulocytes (1.4-6.9) x10^3/uL Basophils # (0-0.4) x10^3/uL Sodium (137-145) mmol/L Potassium (3.5-5.1) mmol/L Chloride (98-107) mmol/L Carbon Dioxide (22-30) mmol/L Anion Gap (5-15) MEQ/L BUN (7-17) mg/dL Creatinine (0.52-1.04) mg/dL Estimated GFR ML/MIN Glucose (74-106) mg/dL POC Glucometer 184 H 176 H 200 H (74 to 106) mg/dL Calcium (8.4-10.2) mg/dL 06/12/23 06/12/23 06/12/23 Range/Units 04:47 04:47 06:33 WBC 5.2 (4.0-10.5) x10^3/uL RBC 2.90 L (4.1-5.4) x10^6/uL Hgb 8.0 L (12.0-16.0) g/dL Hct 26.5 L (35-47) % MCV 91.4 (78-100) fL MCH 27.6 (26-32) pg MCHC 30.2 L (32-36) g/dL RDW 15.9 H (11.5-14.0) % Plt Count 131 L (150-450) x10^3/uL MPV 9.5 (7.5-11.0) fL Gran % 61.9 (36.0-66.0) % Immature Gran % (Auto) 0.2 (0.00-0.4) % Nucleat RBC Rel Count 0.0 (0.00-0.1) % Eos # (Auto) 0.27 (0-0.5) x10^3/uL Immature Gran # (Auto) 0.01 (0.00-0.03) x10^3u/L Absolute Lymphs (auto) 1.18 (1.0-4.6) x10^3/uL Absolute Monos (auto) 0.49 (0.0-1.3) x10^3/uL Absolute Nucleated RBC 0.00 (0.00-0.01) x10^3u/L Lymphocytes % 22.7 L (24.0-44.0) % Monocytes % 9.4 (0.0-12.0) % Eosinophils % 5.2 H (0.00-5.0) % Basophils % 0.6 (0.0-0.4) % Absolute Granulocytes 3.21 (1.4-6.9) x10^3/uL Basophils # 0.03 (0-0.4) x10^3/uL Sodium 135 L (137-145) mmol/L Potassium 3.1 L (3.5-5.1) mmol/L Chloride 96 L (98-107) mmol/L Carbon Dioxide 34 H (22-30) mmol/L Anion Gap 7.8 (5-15) MEQ/L BUN 14 (7-17) mg/dL Creatinine 0.93 (0.52-1.04) mg/dL Estimated GFR 70.4 ML/MIN Glucose 203 H (74-106) mg/dL POC Glucometer 173 H (74 to 106) mg/dL Calcium 8.7 (8.4-10.2) mg/dL Micro Results-Entire Visit: Microbiology 06/08/23 08:41 Aerobic Organism ID Result 1 - Final Leg - Right Not Reportable Anaerobic Culture - Final Not Reportable Anaerobic Culture Result 1 - Final Not Reportable Anaerobic Culture Result 3 - Final Not Reportable Anaerobic Culture Result 4 - Final Not Reportable Anaerobic Bacterial Sensitivity - Final Not Reportable Accuchecks Date 06/12/23 Date 06/11/23 Date 06/11/23 Time 06:52 - Procedures and Test Procedures and Tests throughout Hospitalization: Therapy Orders & Screens 06/08/23 12:09 EKG ROUTINE Comment: Diagnosis: right leg infection 06/08/23 15:56 Respiratory Therapy Consult ONCE Comment: Reason For Exam: Diagnosis: right leg infection 06/10/23 09:56 OT Eval and Treat (MD Order) ONCE Comment: Physician Instructions: Reason For Exam: Diagnosis: right leg infection <EUGENIA WILHELM - Last Filed: 06/12/23 11:59> - Vitals & Intake/Output Vital Signs: Vital Signs Temperature 98.7 F 06/12/23 16:00 Pulse Rate 75 06/12/23 16:00 Respiratory Rate 17 06/12/23 16:00 Blood Pressure 146/59 06/12/23 16:00 O2 Sat by Pulse Oximetry 94 L 06/12/23 16:00 Intake & Output: Intake & Output 06/10/23 06/11/23 06/12/23 06/13/23 11:59 11:59 11:59 11:59 Intake Total 2167 2386 1080 Balance 2167 2386 1080 Weight 122.9 kg - Lab Result Diagrams: 06/12/23 04:47 06/12/23 10:20 Lab Results-Last 24 Hrs: Lab Results-Last 24 Hours 06/12/23 06/12/23 06/12/23 Range/Units 04:47 04:47 06:33 WBC 5.2 (4.0-10.5) x10^3/uL RBC 2.90 L (4.1-5.4) x10^6/uL Hgb 8.0 L (12.0-16.0) g/dL Hct 26.5 L (35-47) % MCV 91.4 (78-100) fL MCH 27.6 (26-32) pg MCHC 30.2 L (32-36) g/dL RDW 15.9 H (11.5-14.0) % Plt Count 131 L (150-450) x10^3/uL MPV 9.5 (7.5-11.0) fL Gran % 61.9 (36.0-66.0) % Immature Gran % (Auto) 0.2 (0.00-0.4) % Nucleat RBC Rel Count 0.0 (0.00-0.1) % Eos # (Auto) 0.27 (0-0.5) x10^3/uL Immature Gran # (Auto) 0.01 (0.00-0.03) x10^3u/L Absolute Lymphs (auto) 1.18 (1.0-4.6) x10^3/uL Absolute Monos (auto) 0.49 (0.0-1.3) x10^3/uL Absolute Nucleated RBC 0.00 (0.00-0.01) x10^3u/L Lymphocytes % 22.7 L (24.0-44.0) % Monocytes % 9.4 (0.0-12.0) % Eosinophils % 5.2 H (0.00-5.0) % Basophils % 0.6 (0.0-0.4) % Absolute Granulocytes 3.21 (1.4-6.9) x10^3/uL Basophils # 0.03 (0-0.4) x10^3/uL Sodium 135 L (137-145) mmol/L Potassium 3.1 L (3.5-5.1) mmol/L Chloride 96 L (98-107) mmol/L Carbon Dioxide 34 H (22-30) mmol/L Anion Gap 7.8 (5-15) MEQ/L BUN 14 (7-17) mg/dL Creatinine 0.93 (0.52-1.04) mg/dL Estimated GFR 70.4 ML/MIN Glucose 203 H (74-106) mg/dL POC Glucometer 173 H (74 to 106) mg/dL Calcium 8.7 (8.4-10.2) mg/dL 06/12/23 06/12/23 06/12/23 Range/Units 10:20 11:43 16:04 WBC (4.0-10.5) x10^3/uL RBC (4.1-5.4) x10^6/uL Hgb (12.0-16.0) g/dL Hct (35-47) % MCV (78-100) fL MCH (26-32) pg MCHC (32-36) g/dL RDW (11.5-14.0) % Plt Count (150-450) x10^3/uL MPV (7.5-11.0) fL Gran % (36.0-66.0) % Immature Gran % (Auto) (0.00-0.4) % Nucleat RBC Rel Count (0.00-0.1) % Eos # (Auto) (0-0.5) x10^3/uL Immature Gran # (Auto) (0.00-0.03) x10^3u/L Absolute Lymphs (auto) (1.0-4.6) x10^3/uL Absolute Monos (auto) (0.0-1.3) x10^3/uL Absolute Nucleated RBC (0.00-0.01) x10^3u/L Lymphocytes % (24.0-44.0) % Monocytes % (0.0-12.0) % Eosinophils % (0.00-5.0) % Basophils % (0.0-0.4) % Absolute Granulocytes (1.4-6.9) x10^3/uL Basophils # (0-0.4) x10^3/uL Sodium (137-145) mmol/L Potassium 3.3 L (3.5-5.1) mmol/L Chloride (98-107) mmol/L Carbon Dioxide (22-30) mmol/L Anion Gap (5-15) MEQ/L BUN (7-17) mg/dL Creatinine (0.52-1.04) mg/dL Estimated GFR ML/MIN Glucose (74-106) mg/dL POC Glucometer 195 H 174 H (74 to 106) mg/dL Calcium (8.4-10.2) mg/dL Micro Results-Entire Visit: Accuchecks Date 06/12/23 Date 06/12/23 Date 06/12/23 Time 16:14 Time 11:56 Time 06:52 - Procedures and Test Procedures and Tests throughout Hospitalization: Therapy Orders & Screens 06/08/23 12:09 EKG ROUTINE Comment: Diagnosis: right leg infection 06/08/23 15:56 Respiratory Therapy Consult ONCE Comment: Reason For Exam: Diagnosis: right leg infection 06/10/23 09:56 OT Eval and Treat (MD Order) ONCE Comment: Physician Instructions: Reason For Exam: Diagnosis: right leg infection <LACIE AMAYA - Last Filed: 06/12/23 23:08> Discharge Exam General Appearance: no apparent distress Neurologic Exam: alert, oriented x 3, cooperative Eye Exam: PERRL Ears, Nose, Throat Exam: normal ENT inspection Neck Exam: normal inspection Respiratory Exam: normal breath sounds, lungs clear Cardiovascular Exam: regular rate/rhythm, normal heart sounds Gastrointestinal/Abdomen Exam: soft, normal bowel sounds Pelvic Exam: deferred Rectal Exam: deferred Back Exam: normal inspection Extremity Exam: amputations (RBKA with surgical dressing) Skin Exam: normal color Wound Assessment: Skin/Wound Assessment Wound/Incision Assessment Start: 06/08/23 08:05 Text: Status: Active Freq: Q6H Protocol: Document 06/12/23 02:00 LB (Rec: 06/12/23 02:48 LB [id number]) Wound/Incision Assessment Left Posterior Buttock Wound Assessment Shift Assessment Wound Type Pressure Ulcer Wound Stage Stage II Drainage Amount None General Appearance Open to air Wound Bed Greatest Portion Shiny Wound Bed Lesser Portion Red (Granulation),Shiny Comment ZINC CREAM APPLIED prn Right Lower Knee Wound Assessment Shift Assessment Wound Type Amputation Wound Stage Non Pressure Wound Dressing Status Dry & Intact Drainage Amount None Primary Dressing Gauze Pads Secondary Dressing Gauze Roll/Wrap Comment DRESSING TO REMAIN IN PLACE PER ORTHO, NO NEW DRAINAGE NOTED. REMAINS TRUE Wound Photo Photo Taken Yes <EUGENIA WILHELM - Last Filed: 06/12/23 11:59> Final Diagnosis/Problem List - Final Discharge Diagnosis/Problem (1) S/P BKA (below knee amputation) Status: Acute Code(s): Z89.519 - ACQUIRED ABSENCE OF UNSPECIFIED LEG BELOW KNEE (2) Neuropathy Status: Acute Code(s): G62.9 - POLYNEUROPATHY, UNSPECIFIED (3) GERD (gastroesophageal reflux disease) Status: Acute Code(s): K21.9 - GASTRO-ESOPHAGEAL REFLUX DISEASE WITHOUT ESOPHAGITIS (4) Diabetes mellitus Status: Acute Code(s): E11.9 - TYPE 2 DIABETES MELLITUS WITHOUT COMPLICATIONS (5) HTN (hypertension) Status: Acute Code(s): I10 - ESSENTIAL (PRIMARY) HYPERTENSION (6) Anemia Status: Acute Code(s): D64.9 - ANEMIA, UNSPECIFIED (7) Hypokalemia Status: Acute Code(s): E87.6 - HYPOKALEMIA <EUGENIA WILHELM - Last Filed: 06/12/23 11:59> <EUGENIA WILHELM - Last Filed: 06/12/23 11:59> <LACIE AMAYA - Last Filed: 06/12/23 23:08> - Discharge Disposition: XFER OTHER Condition: Stable Prescriptions: New Ceftazidime Pentahydrate [Fortaz/Tazicef] 2 gm IV Q8HT #4 iv piggy Ciprofloxacin [Cipro 500 MG] 500 mg PO BID tablet Gabapentin [Neurontin ] 300 mg PO QID cap Continue Atorvastatin Calcium [Lipitor 20MG Tablet] 20 mg PO HS Albuterol Sulfate [Albuterol Sulfate Hfa] 2 puff IH Q6H PRN PRN PRN Reason: Shortness Of Breath/Wheezing Insulin Glargine [Lantus Insulin] 50 unit SQ HS PANTOPRAZOLE 40 mg Tablet [Protonix 40MG Tablet] 40 mg PO BID Aspirin EC 325 mg [Ecotrin 325 MG] 325 mg PO DAILY Potassium Chloride Tab* [Klor Con] 10 meq PO BID Ondansetron [Ondansetron Odt ] 4 mg PO Q6H PRN PRN Reason: Nausea Torsemide 50 mg PO BID Spironolactone 25 mg [Aldactone 25 MG] 25 mg PO DAILY Bisacodyl 10 mg [Dulcolax 10 MG SUPP] 10 mg RC DAILY PRN PRN PRN Reason: Constipation Insulin Glargine [Lantus Insulin] 15 unit SQ QAM Ferrous Sulfate 325 mg [Feosol 325 mg] 325 mg PO DAILY 30 Days #30 tablet Melatonin 3 mg PO HS Lactulose 20 gm PO QID Calcium Carbonate [Tums] 400 mg PO QID PRN PRN Reason: Indigestion DAPTOmycin [Daptomycin] 850 mg IV DAILY #0 Changed Hydromorphone HCl 1 mg PO Q4H 7 Days #0 Discontinued Insulin Lispro [Humalog] 0 unit SQ AC Gabapentin Enacarbil [Horizant] 600 mg PO BID Additional Instructions: RESUME PREVIOUS [facility] ORDERS SEE ATTACHED MED LIST ORTHO ORDERS: CHANGE DRESSING ON 06/13/23 WITH DRY NONSTICK DRESSING THEN DRESSING CHANGES NEEDED MAY SHOWER 06/15/23 MAY TRANSFER WITH WEIGHT BEARING ON LEFT LEG PATIENT MAY HAVE HER LAST DAY OF DAPTOMYCIN AND CEFTAZIDIME TOMORROW (06/13/23) THEN SWITCH TO PO CIPRO 500 MG PO TWICE DAILY FOR [address] BECKER 07/02/23 FOR SUTURE REMOVAL AND STUMP MOTEL MANAGER RETURN IMMEDIATELY IF STUMP APPEARS INFECTED. CONTINUE ASPIRIN FOR DVT PROPHYLAXIS GIVE DILAUDID SCHEDULED X 7 DAYS THEN REASSESS WITH [place] PHYSICIAN Follow up with: SHERMAN MILAN PA [NON-STAFF PHY W/O PRIVILEGES] - 06/25/23 3:15 pm ('s SOFTWARE PRODUCT MANAGER) KIKI BECKER MD [ACTIVE STAFF] - 07/02/23 1:00 pm Forms: Ambulance Transport Record, Transfer Record [facility] MOO Encounter - MOO Encounter Attestation MOO Encounter Attestation: "IhkevinpersonalCLOTILDE Poole andhavediscussed pertinent aspects of their care with Eugenia Ordoñez agree with the history, physical exam (any modifications based on my personal exam will be noted below), assessment, and plan as outlined in original note. Please see immediately below for my summary of findings and additional assessment and plan along with any meaningful corrections/explanations to the Subjective/Objective portions of the MOO note will be noted." My portion of the encounter took place via telemedicine. <LACIE AMAYA - Last Filed: 06/12/23 23:08>
[2023-06-12 11:56] VITALS: PULSE 75
[2023-06-12 16:15] VITALS: BP 146/59; TEMP 98.7; O2SAT 94
[2023-06-14] MEDS ORDERED: Cipro 500 MG PO SCH (10:00)
== END 2023-06-12 19:06 | DRG 476 ==
LOC: MED SURG 05:45 → UNDOADMIN 05:45 → EDSTATUS 14:47
PROVIDERS: ADMIT Orthopaedic Surgery; ATTEND Orthopaedic Surgery
PROC: 0Y6J0Z2 Detachment at Left Lower Leg, Mid, Open Approach (ICD-10-PCS; principal; 2023-06-08)
DX: M86.9 Osteomyelitis, unspecified (principal); G62.9 Polyneuropathy, unspecified; K21.9 Gastro-esophageal reflux disease without esophagitis; E11.9 Type 2 diabetes mellitus without complications; I11.0 Hypertensive heart disease with heart failure; I50.9 Heart failure, unspecified; Z89.511 Acquired absence of right leg below knee; D64.9 Anemia, unspecified; E87.6 Hypokalemia; E78.5 Hyperlipidemia, unspecified; L89.322 Pressure ulcer of left buttock, stage 2; E66.9 Obesity, unspecified; Z79.899 Other long term (current) drug therapy; Z20.828 Contact with and (suspected) exposure to other viral communicable diseases
CPT/HCPCS: 27880; 36415; 71045; 73590; 76937; 76942; 80048; 80053; 82550; 82947; 83036; 83880; 84132; 84134; 85025; 85027; 85610; 86850; 86900; 86901; 87070; 87075; 88307; 88311; 93005; 97110; 97165; 97530; 99213; Q3014; 64445; 64447; J0171; J0330; J0713; J0878; J1170; J1642; J1817; J2250; J2270; J2795; J3010; A9270-GY